=== PATIENT | female | born 1975 | race African-American/Black ===

== ENCOUNTER 2020-07-12 21:07 | Emergency (ER) | payer OTHER, SELFPAY ==
[2020-07-12 21:21] VITALS: BP 121/82; PULSE 82; RESP 16; TEMP 36.9; O2SAT 97; BMI 29.0
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
[2020-07-12 22:25] LABS: MANUAL DIFF FLAG NO
[2020-07-12 22:26] LABS: Basophils Percent Auto 0.5 % (0-2); Eosinophils Absolute Auto 0.3 X10*3/uL (0.0-0.4); Eosinophils Percent Auto 4.8 % (0-4); Hematocrit 34.8 % (37-47); Imm Gran Abs Auto 0.04 X10*3/uL (0.00-0.03); Imm Gran Pct Auto 0.6 % (0.0-0.4); Lymphocytes Absolute Auto 2.7 X10*3/uL (1.2-4.9); Lymphocytes Percent Auto 43.6 % (20-40); Mean Corpuscular HGB Conc 31.6 g/dl (31.0-35.0); Mean Corpuscular Hemoglobin 27.6 pg (27.0-33.0); Mean Corpuscular Volume 87.4 fL (80-98); Mean Platelet Volume 11.7 fL (9.4-12.3); Monocytes Absolute Auto 0.3 X10*3/uL (0.1-1.2); Monocytes Percent Auto 5.4 % (2-11); Neutrophils Absolute Auto 2.8 X10*3/uL (2.0-8.3); Neutrophils Percent Auto 45.1 % (45-73); Platelet Count 246 X10*3/uL (160-400); Red Blood Count 3.98 X10*6/uL (4.20-5.50); Red Cell Distribution Width 16.2 % (11.0-16.0); White Blood Count 6.3 X10*3/uL (4.8-10.8)
[2020-07-12 22:52] LABS: Ethanol < 10 mg/dL
[2020-07-12 22:56] LABS: Alanine Aminotransferase 6 U/L (0-31); Albumin Level 3.7 g/dL (3.5-5.0); Alkaline Phosphatase 62 U/L (39-117); Anion Gap 12 (12-20); Aspartate Amino Transferase 7 U/L (5-31); Bilirubin Total < 0.2 mg/dL (0.0-1.0); Blood Urea Nitrogen 11 mg/dL (9-16); Calcium 8.6 mg/dL (8.4-10.2); Carbon Dioxide 22 mmol/L (22-29); Chloride 111 mmol/L (96-108); Creatinine Clr Calc Pharmacy 94.7; Estimated Glomerular Filt Rate > 60; Glucose Random 89 mg/dL (60-115); Sodium 141 mmol/L (135-145); Total Protein 6.4 g/dL (6.5-8.0)
[2020-07-12 23:06] LABS: Erythrocyte Sedimentation Rate 9 MM/HR (0-20)
[2020-07-12 23:13] LABS: Glucose Urine UA NEG (NEG); Leukocyte Esterase Urine NEG (NEG); Nitrite Urine NEG (NEG); Specific Gravity - Urine >= 1.030 (1.005-1.025); Urine Blood NEG (NEG); Urine Ketones 5 MG/DL (NEG); Urine Protein NEG (NEG-TRACE)
[2020-07-12 23:16] LABS: Appearance Urine HAZY; Color Urine YELLOW; UACC Culture Trigger NO
--- NOTE | 2020-07-12 23:20 | PC.NURSE ---
pt urine sample obtained by bed beth. requesting food multiple times. heating pack given for patient complaints of back pain. pt in nad at this time.
--- NOTE | 2020-07-12 23:45 | PC.NURSE ---
PLAN TO D.C HOME VIA AMBULANCE. PT AGREEABLE. DR GUZMAN AT BEDSIDE
[2020-07-12 23:57] LABS: Amphetamine Screen Urine POSITIVE (Not Detect); Barbiturates, Urine Not Detected (Not Detect); Benzodiazepines Screen Urine Not Detected (Not Detect); Cannabinoid Screen Urine Not Detected (Not Detect); Cocaine Screen Urine POSITIVE (Not Detect); Opiate Screen Urine Not Detected (Not Detect); Phencyclidine Screen Urine Not Detected (Not Detect)
== END 2020-07-13 00:47 | disposition home or self-care (01) ==
PROVIDERS: Emergency Provider Student in an Organized Health Care Education/Training Program
DX: M54.42 Lumbago with sciatica, left side (principal); M54.41 Lumbago with sciatica, right side
CPT/HCPCS: 36415; 80053; 80307; 80320; 81003; 85025; 85652; 99283; 99284

== ENCOUNTER 2020-07-25 18:49 | Emergency (ER) | payer OTHER, SELFPAY ==
[2020-07-25 19:05] VITALS: BP 129/88; PULSE 75; RESP 20; TEMP 37.2; O2SAT 100; BMI 28.4
--- NOTE | 2020-07-25 19:14 | XR_ITS ---
EXAMINATION: PORTABLE CHEST 1 VIEW CLINICAL INFORMATION: cough . COMPARISON: 11/12/2019. TECHNIQUE: Portable frontal view of the chest was obtained. FINDINGS: The lungs are well expanded. No focal infiltrate, effusion, edema, or pneumothorax. Cardiac and mediastinal silhouettes are within normal limits for technique. No acute bony abnormality seen. IMPRESSION: No evidence of acute disease.
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
--- NOTE | 2020-07-25 19:15 | ECG_ITS ---
Test Reason : SOB Blood Pressure : / mmHG Vent. Rate : 076 BPM Atrial Rate : 076 BPM P-R Int : 160 ms QRS Dur : 096 ms QT Int : 436 ms P-R-T Axes : 059 019 056 degrees QTc Int : 490 ms Normal sinus rhythm Nonspecific T wave abnormality Abnormal ECG When compared with ECG of 13-MAY-2020 19:56, No significant change was found Referred By: Marlen Grace Electronically Signed By:RYAN WINKLER MD
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
[2020-07-25 19:51] LABS: Hematocrit 33.7 % (37-47); Hemoglobin 10.7 g/dl (12.0-16.0); Imm Gran Abs Auto 0.02 X10*3/uL (0.00-0.03); Imm Gran Pct Auto 0.5 % (0.0-0.4); Lymphocytes Absolute Auto 1.3 X10*3/uL (1.2-4.9); Lymphocytes Percent Auto 31.8 % (20-40); MANUAL DIFF FLAG NO; Mean Corpuscular HGB Conc 31.8 g/dl (31.0-35.0); Mean Corpuscular Hemoglobin 27.4 pg (27.0-33.0); Mean Corpuscular Volume 86.4 fL (80-98); Mean Platelet Volume 12.2 fL (9.4-12.3); Monocytes Absolute Auto 0.3 X10*3/uL (0.1-1.2); Monocytes Percent Auto 8.5 % (2-11); Neutrophils Absolute Auto 2.3 X10*3/uL (2.0-8.3); Neutrophils Percent Auto 58.2 % (45-73); Platelet Count 241 X10*3/uL (160-400); Red Cell Distribution Width 15.9 % (11.0-16.0)
[2020-07-25 20:14] VITALS: PULSE 78; RESP 20; O2SAT 99
[2020-07-25 20:18] VITALS: PULSE 73; O2SAT 100
[2020-07-25 20:18] LABS: Anion Gap 10 (12-20); Blood Urea Nitrogen 15 mg/dL (9-16); Calcium 8.4 mg/dL (8.4-10.2); Carbon Dioxide 26 mmol/L (22-29); Chloride 107 mmol/L (96-108); Estimated Glomerular Filt Rate > 60; Glucose Random 90 mg/dL (60-115); Potassium 4.2 mmol/l (3.3-5.1); Sodium 139 mmol/L (135-145)
[2020-07-25 20:26] LABS: B Type Natriuretic Peptide 18 pg/mL (<100); Troponin-I High Sensitivity 9.4 ng/L (<3.5-17.0)
[2020-07-25 22:00] VITALS: BP 124/73; PULSE 79; RESP 16; O2SAT 100
[2020-07-25 23:15] LABS: Troponin-I High Sensitivity 8.2 ng/L (<3.5-17.0)
[2020-07-25 23:55] LABS: UPreg QC Valid YES; Urine Pregnancy NEGATIVE (NEGATIVE)
== END 2020-07-26 00:11 | disposition home or self-care (01) ==
PROVIDERS: Emergency Provider Emergency Medicine
DX: B34.9 Viral infection, unspecified (principal); Z91.81 History of falling; E11.9 Type 2 diabetes mellitus without complications; G35 Multiple sclerosis; F17.200 Nicotine dependence, unspecified, uncomplicated
CPT/HCPCS: 36415; 70450; 71045; 80048; 81025; 83880; 84484; 85025; 93005; 99284; 99285

== ENCOUNTER 2020-08-02 14:15 | Emergency (ER) | payer OTHER, SELFPAY ==
[2020-08-02 16:12] VITALS: BP 139/91; PULSE 75; RESP 18; TEMP 36.9; O2SAT 100; BMI 24.7
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
[2020-08-02] MEDS: oxyCODONE HCl Immed Release 5 MG TABLET PO (17:12)
--- NOTE | 2020-08-02 17:13 | PC.NURSE ---
patient medicated per order
[2020-08-02 17:39] LABS: Glucose Urine UA NEG (NEG); Leukocyte Esterase Urine NEG (NEG); Nitrite Urine NEG (NEG); Specific Gravity - Urine >= 1.030 (1.005-1.025); Urine Blood NEG (NEG); Urine Ketones NEG (NEG); Urine Protein NEG (NEG-TRACE)
[2020-08-02 17:40] LABS: Appearance Urine CLEAR; Color Urine YELLOW
[2020-08-02 17:43] LABS: UPreg QC Valid YES; Urine Pregnancy NEGATIVE (NEGATIVE)
== END 2020-08-02 19:11 | disposition home or self-care (01) ==
PROVIDERS: Emergency Provider Emergency Medicine
DX: S39.81XA Other specified injuries of abdomen, initial encounter (principal); R10.9 Unspecified abdominal pain; R07.81 Pleurodynia; V43.52XA Car driver injured in collision with other type car in traffic accident, initial encounter; Y93.9 Activity, unspecified; Y92.410 Unspecified street and highway as the place of occurrence of the external cause; F17.200 Nicotine dependence, unspecified, uncomplicated; Z71.6 Tobacco abuse counseling; Z79.899 Other long term (current) drug therapy
CPT/HCPCS: 71045; 74176; 81003; 81025; 99284

== ENCOUNTER 2020-08-21 16:06 | Inpatient (IN) | payer OTHER, SELFPAY ==
[2020-08-21 16:24] VITALS: BP 113/62; BP 145/100; PULSE 88; PULSE 90; RESP 19; TEMP 36.7; O2SAT 98; O2SAT 99; BMI 24.7
[2020-08-21 16:36] VITALS: BP 113/62; PULSE 88; RESP 19; TEMP 36.7; O2SAT 99
--- NOTE | 2020-08-21 17:32 | ED_ITS ---
HPI - Fall General Chief Complaint: Fall Stated Complaint: FALL Time Seen by Provider: 08/21/20 19:15 Source: patient Mode of arrival: EMS Limitations: no limitations History of Present Illness HPI Narrative: 45-year-old female with past medical history of MS, chronic pain, hypertension, GERD, anxiety, depression, and insomnia presents after a fall. She states that she is experiencing an MS flare, has weakness, and fell because of weakness and pain. She lost consciousness and believes that she hit her head. Her states that she was out for several minutes. she states to have pain everywhere per baseline. She does not describe any abdominal distension, hematuria, edema, fevers or chills. MD complaint: fall Onset (ago): hour(s) ( Just prior to arrival) Fall witnessed: yes, by family Place fall occurred: home Loss of consciousness: yes Length of LOC: minutes(s) Prolonged down time: no Symptoms prior to fall: other ( weakness, consistent with MS flare) Context: history of frequent falls Location of injury: head Severity: severe Severity scale (1-10): 10 Quality: aching and throbbing Related Data Home Medications Medication Instructions Recorded Confirmed albuterol sulfate [ProAir HFA] 2 puff INHALATION Q6H PRN 08/21/20 08/21/20 amlodipine 2.5 mg PO DAILY 08/21/20 08/21/20 atorvastatin 10 mg PO BEDTIME 08/21/20 08/21/20 divalproex 500 mg PO BID 08/21/20 08/21/20 hydroxyzine HCl [Atarax] 50 mg PO QID PRN 08/21/20 08/21/20 pantoprazole [Protonix] 40 mg PO DAILY 08/21/20 08/21/20 quetiapine [Seroquel XR] 200 mg PO DAILY 08/21/20 08/21/20 trazodone 300 mg PO BEDTIME PRN 08/21/20 08/21/20 Allergies Allergy/AdvReac Type Severity Reaction Status Date / Time Iodinated Contrast Media Allergy Severe ANAPHYLAXIS Verified 07/12/20 22:47 [CONTRAST, IV] ibuprofen [From Motrin] Allergy Intermediate SWELLING Verified 07/12/20 22:47 morphine [MORPHINE] Allergy Intermediate RASH Verified 07/12/20 22:47 acetaminophen [From TYLENOL] Allergy Mild HIVES Verified 07/12/20 22:47 bee pollen [Bee Stings] Allergy Mild UNKNOWN Verified 07/12/20 22:47 coconut Allergy Mild HIVES/SWELL Verified 07/12/20 22:47 ING latex [Latex] Allergy Mild HIVES Verified 07/12/20 22:47 NSAIDS (Non-Steroidal Allergy Mild HIVES Verified 07/12/20 22:47 Anti-Inflamma [NSAIDS (NON-STEROIDAL ANTI-INFLAMMA] aspirin [ASA] Allergy Unknown HIVES Verified 07/12/20 22:47 tramadol [TRAMADOL] Allergy Unknown UNKNOWN Verified 07/12/20 22:47 turkey Allergy Unknown UNKNOWN Verified 07/12/20 22:47 lidocaine Allergy Rash Verified 07/12/20 22:47 From Vicodin Allergy Mild RASH Uncoded 06/25/20 17:23 Review of Systems Review of Systems: Constitutional: No Weight loss, No Fever, No Chills, No Night Sweats, No Fatigue, No Malaise ENT/Mouth: No Hearing loss, No Ear Pain, No Nasal Congestion, No Sinus Pain, No Hoarseness, No sore throat, No Rhinorrhea, No Swallowing Difficulty Eyes: No Eye Pain, No Swelling, No Redness, No Foreign Body, No Discharge, No Vision Changes Cardiovascular: No Chest Pain, No SOB, No Dyspnea on Exertion, No Orthopnea, No Edema, No Palpitations Respiratory: No Cough, No Sputum, No Wheezing, No Smoke Exposure, No Dyspnea Gastrointestinal: No Nausea, No Vomiting, No Diarrhea, No Constipation, No abdominal Pain, No Hematochezia, No Melena Genitourinary: no irregular bleeding, No Dysuria, No Urinary Frequency, No Hematuria, No Urinary Incontinence, No Urgency, No Flank Pain, No Urinary Flow Changes, No Hesitancy Musculoskeletal: chronic pain Skin: No Skin Lesions, No rash Neuro: positive loss of consciousness, Weakness, Numbness, and headache. No Paresthesias, No Dizziness Psych: No Anxiety/Panic, No Depression, No SI/HI/AH/VH, No Social Issues Heme/Lymph: No Bruising, No Bleeding,No Lymphadenopathy Endocrine: No Polyuria, No Polydipsia, No Temperature Intolerance Yes all other systems are reviewed and are negative PMFSH Past Medical History Attestation statement: The following information was validated with the patient. Medical History Asthma section wound complication Diabetes GERD (gastroesophageal reflux disease) Multiple sclerosis Surgical History History of left ankle joint replacement History of thoracic surgery Social History Social History Alcohol intake: never Smoking Status: Current every day smoker Use of substances other than those prescribed or required for medical reasons: No Substance Use Type: Painkillers Advance Directives: No Advance Directives Information Provided: Yes Physical Exam Vital Signs: Vital Signs: Last Vital Signs Temp 98.6 F 08/21/20 23:31 Pulse 78 08/21/20 23:31 Resp 16 08/21/20 23:31 BP 124/74 08/21/20 23:31 Pulse Ox 99 08/21/20 23:31 Body Mass Index 24.7 Appearance: Alert. Oriented X3. No acute distress. Eyes: Pupils equal, round and reactive to light. ENT: Pharynx normal. Neck: Normal inspection. Neck supple. CVS: Normal heart rate and rhythm. Pulses normal. Respiratory: No respiratory distress. Breath sounds normal. Abdomen: Soft and nontender. Skin: Skin warm and dry. Normal skin color. Normal skin turgor. Extremities: No lower extremity edema. Neuro: No motor deficit. No sensory deficit. Course Course Course Narrative: 45-year-old female with MS and chronic pain presents after a fall. States to have weakness secondary to MS flare. She is requesting IV steroids to help reduce her flare and some pain management. Will order labs, CT scan of the head as she did lose consciousness. She describes using 10 mg of oxycodone q.4 hours however her last prescription that she received for oxycodone 10 mg was in April of 2020. at this time will give pain management of oxycodone 5 mg, CBC, Chem 7. she has had multiple admissions in the past for MS flares, last date being February of 2020. CT scan of head is negative, chest x-ray is negative for acute findings, labs are unremarkable, COVID-19 swab is negative troponin is negative, EKG is normal sinus. Patient states that she is too weak to go home, has significant concerns regarding falls as she had fallen earlier today With loss of consciousness. Discussion with hospitalist, plan of care is to admit for MS exacerbation. Consultations Consultation #1: Ganesh Time: 21:30 MDM - Fall Differential Diagnosis Differential diagnosis: Likely syncope, fracture and concussion with loss of consciousness Medical Records Attestation: I reviewed the patient's medical records. Lab Data Attestation: I reviewed the patient's lab results. Result diagrams: 08/21/20 21:10 08/21/20 19:43 Labs: Lab Results 08/21/20 08/21/20 08/21/20 Range/Units 19:43 19:43 19:43 WBC (4.8-10.8) X10*3/uL RBC (4.20-5.50) X10*6/uL Hgb (12.0-16.0) g/dl Hct (37-47) % MCV (80-98) fL MCH (27.0-33.0) pg MCHC (31.0-35.0) g/dl RDW (11.0-16.0) % Plt Count (160-400) X10*3/uL MPV (9.4-12.3) fL Immature Gran % (Auto) (0.0-0.4) % Neut % (Auto) (45-73) % Lymph % (Auto) (20-40) % Winston % (Auto) (2-11) % Eos % (Auto) (0-4) % Baso % (Auto) (0-2) % Lymph # (Auto) (1.2-4.9) X10*3/uL Winston # (Auto) (0.1-1.2) X10*3/uL Eos # (Auto) (0.0-0.4) X10*3/uL Baso # (Auto) (0.0-0.2) X10*3/uL Abs Immat Gran (auto) (0.00-0.03) X10*3/uL Absolute Neuts (auto) (2.0-8.3) X10*3/uL Absolute Nucleated RBC (0.0-0.012) X10*3/uL Nucleated RBC % (auto) (0.0-0.2) /100WBC Sodium 138 (135-145) mmol/L Potassium 4.2 (3.3-5.1) mmol/l Chloride 106 (96-108) mmol/L Carbon Dioxide 23 (22-29) mmol/L Anion Gap 13 (12-20) BUN 12 (9-16) mg/dL Creatinine 0.92 (0.5-1.4) mg/dL Estim Creat Clear Calc 83.5 Estimated GFR > 60 Random Glucose 83 (60-115) mg/dL Lactic Acid 1.2 (0.5-2.0) mmol/L Calcium 8.9 (8.4-10.2) mg/dL Magnesium 1.9 (1.6-2.6) mg/dL Troponin I High Sens < 3.5 D (<3.5-17.0) ng/L Coronavirus (PCR) COVID-19 ([facility]) (Negative) COVID-19 Clin Com Influenza Type A (PCR) Influenza Type B (PCR) RSV RNA Qual (PCR) 08/21/20 08/21/20 08/21/20 Range/Units 21:10 22:52 22:52 WBC 3.8 L (4.8-10.8) X10*3/uL RBC 4.05 L (4.20-5.50) X10*6/uL Hgb 11.1 L (12.0-16.0) g/dl Hct 35.3 L (37-47) % MCV 87.2 (80-98) fL MCH 27.4 (27.0-33.0) pg MCHC 31.4 (31.0-35.0) g/dl RDW 15.4 (11.0-16.0) % Plt Count 230 (160-400) X10*3/uL MPV 12.1 (9.4-12.3) fL Immature Gran % (Auto) 0.3 (0.0-0.4) % Neut % (Auto) 57.9 (45-73) % Lymph % (Auto) 35.7 (20-40) % Winston % (Auto) 3.7 (2-11) % Eos % (Auto) 1.6 (0-4) % Baso % (Auto) 0.8 (0-2) % Lymph # (Auto) 1.4 (1.2-4.9) X10*3/uL Winston # (Auto) 0.1 (0.1-1.2) X10*3/uL Eos # (Auto) 0.1 (0.0-0.4) X10*3/uL Baso # (Auto) 0.0 (0.0-0.2) X10*3/uL Abs Immat Gran (auto) 0.01 (0.00-0.03) X10*3/uL Absolute Neuts (auto) 2.2 (2.0-8.3) X10*3/uL Absolute Nucleated RBC 0.000 (0.0-0.012) X10*3/uL Nucleated RBC % (auto) 0.0 (0.0-0.2) /100WBC Sodium (135-145) mmol/L Potassium (3.3-5.1) mmol/l Chloride (96-108) mmol/L Carbon Dioxide (22-29) mmol/L Anion Gap (12-20) BUN (9-16) mg/dL Creatinine (0.5-1.4) mg/dL Estim Creat Clear Calc Estimated GFR Random Glucose (60-115) mg/dL Lactic Acid (0.5-2.0) mmol/L Calcium (8.4-10.2) mg/dL Magnesium (1.6-2.6) mg/dL Troponin I High Sens (<3.5-17.0) ng/L Coronavirus (PCR) Cancelled COVID-19 ([facility]) Negative (Negative) COVID-19 Clin Com See Note Influenza Type A (PCR) Cancelled Influenza Type B (PCR) Cancelled RSV RNA Qual (PCR) Cancelled Imaging Data CT scan - head: Attestation: I personally reviewed and interpreted this imaging study as follows: Radiologist's impression: FINDINGS: There are no pathologic extra-axial fluid collections. The lateral, third, fourth ventricles are prominent, though stable and concordant with the appearance of the sulci. The degree of ventricular prominence is discordant with the patient's age. There is no evidence for acute intraparenchymal hemorrhage or infarct. There is mild periventricular low-attenuation indicative of small vessel disease. There is neither mass nor mass effect. There is no shift of midline structures. The paranasal sinuses and mastoid air cells are clear. There are no osseous lesions. CT/CT head/brain wo con IMPRESSION: No evidence for acute intracranial injury. Stable though discordant ventricular prominence indicative of cerebral atrophy. Automated exposure control (Care Dose) Adjustment of the mA and/or kv according to patient size (this includes techniques or standardized protocols for targeted exams where dose is matched to indication / reason for exam; i.e. extremities or head). Chest x-ray: Attestation: I personally reviewed and interpreted this imaging study as follows: Radiologist's impression: CLINICAL INFORMATION: Pain. Fall. COMPARISON: August 02, 2020. TECHNIQUE: An AP view of the chest is provided. FINDINGS: The cardiac silhouette is not enlarged. The mediastinal and hilar contours are unremarkable. There are neither pleural effusions nor pneumothoraces. There are no consolidations. The osseous structures are stable. XR/XR chest 1V IMPRESSION: No evidence for acute disease. ECG Data Attestation: I personally reviewed and interpreted this ECG as follows: ECG interpretation date: 08/21/20 ECG interpretation time: 19:53 Prior ECG tracings: available for review Interpretation: Vent. Rate : 076 BPM Atrial Rate : 076 BPM P-R Int : 160 ms QRS Dur : 096 ms QT Int : 436 ms P-R-T Axes : 059 019 056 degrees QTc Int : 490 ms Normal sinus rhythm Nonspecific T wave abnormality Abnormal ECG When compared with ECG of 13-MAY-2020 19:56, No significant change was found Critical Care Time Critical Care Time Critical Care Time: Yes Total Critical Care Time: 45 Attestation: I have personally provided critical care time exclusive of time spent on separately billable procedures. Time includes review of laboratory data, radiology results, discussion with consultants, and monitoring for potential decompensation. Interventions were performed as documented. Discharge Plan Discharge Clinical Impression: Multiple sclerosis exacerbation, Weakness Fall Qualifiers: Encounter type: initial encounter Qualified Code(s): W19.XXXA - Unspecified fall, initial encounter Patient Disposition: Admitted As Inpatient
--- NOTE | 2020-08-21 17:54 | ECG_ITS ---
Test Reason : ABD PAIN Blood Pressure : / mmHG Vent. Rate : 063 BPM Atrial Rate : 063 BPM P-R Int : 160 ms QRS Dur : 092 ms QT Int : 440 ms P-R-T Axes : 053 -03 030 degrees QTc Int : 450 ms Normal sinus rhythm Nonspecific T wave abnormality Abnormal ECG When compared with ECG of 25-JUL-2020 19:53, No significant change was found Referred By: Stephanie Rodriguez Electronically Signed By:RYAN WINKLER MD
--- NOTE | 2020-08-21 17:54 | CT_ITS ---
EXAMINATION: CT HEAD WITHOUT CONTRAST CLINICAL INFORMATION: Fall. Trauma. COMPARISON: July 25, 2020. TECHNIQUE: Contiguous helical images of the brain were obtained without IV contrast. Multiplanar reconstructions were performed. DLP: 667 mGy-cm. FINDINGS: There are no pathologic extra-axial fluid collections. The lateral, third, fourth ventricles are prominent, though stable and concordant with the appearance of the sulci. The degree of ventricular prominence is discordant with the patient's age. There is no evidence for acute intraparenchymal hemorrhage or infarct. There is mild periventricular low-attenuation indicative of small vessel disease. There is neither mass nor mass effect. There is no shift of midline structures. The paranasal sinuses and mastoid air cells are clear. There are no osseous lesions. CT/CT head/brain wo con IMPRESSION: No evidence for acute intracranial injury. Stable though discordant ventricular prominence indicative of cerebral atrophy. Automated exposure control (Care Dose) Adjustment of the mA and/or kv according to patient size (this includes techniques or standardized protocols for targeted exams where dose is matched to indication / reason for exam; i.e. extremities or head).
--- NOTE | 2020-08-21 18:11 | XR_ITS ---
EXAMINATION: CHEST 1 VIEW CLINICAL INFORMATION: Pain. Fall. COMPARISON: August 02, 2020. TECHNIQUE: An AP view of the chest is provided. FINDINGS: The cardiac silhouette is not enlarged. The mediastinal and hilar contours are unremarkable. There are neither pleural effusions nor pneumothoraces. There are no consolidations. The osseous structures are stable. XR/XR chest 1V IMPRESSION: No evidence for acute disease.
[2020-08-21 19:11] VITALS: PULSE 71; RESP 19; TEMP 36.8; O2SAT 100
[2020-08-21] MEDS: oxyCODONE HCl Immed Release 5 MG TABLET PO (19:44)
[2020-08-21] MEDS: methylPREDNISolone Sod Succ/PF 125 MG/2 ML VIAL IVPUSH (19:44)
[2020-08-21] MEDS: 0.9 % Sodium Chloride 1,000 ML 999 ML IVCONT (19:44)
[2020-08-21 20:18] LABS: Lactic Acid 1.2 mmol/L (0.5-2.0)
[2020-08-21 20:22] LABS: Magnesium 1.9 mg/dL (1.6-2.6)
[2020-08-21 20:26] LABS: Troponin-I High Sensitivity < 3.5 ng/L (<3.5-17.0)
[2020-08-21 21:11] VITALS: BP 117/73; PULSE 74; RESP 16; TEMP 36.8; O2SAT 98
[2020-08-21 21:15] LABS: Anion Gap 13 (12-20); Blood Urea Nitrogen 12 mg/dL (9-16); Calcium 8.9 mg/dL (8.4-10.2); Carbon Dioxide 23 mmol/L (22-29); Chloride 106 mmol/L (96-108); Creatinine Clr Calc Pharmacy 83.5; Estimated Glomerular Filt Rate > 60; Glucose Random 83 mg/dL (60-115); Potassium 4.2 mmol/l (3.3-5.1); Sodium 138 mmol/L (135-145)
[2020-08-21 21:16] LABS: Basophils Percent Auto 0.8 % (0-2); Eosinophils Absolute Auto 0.1 X10*3/uL (0.0-0.4); Eosinophils Percent Auto 1.6 % (0-4); Hematocrit 35.3 % (37-47); Hemoglobin 11.1 g/dl (12.0-16.0); Imm Gran Abs Auto 0.01 X10*3/uL (0.00-0.03); Imm Gran Pct Auto 0.3 % (0.0-0.4); Lymphocytes Absolute Auto 1.4 X10*3/uL (1.2-4.9); Lymphocytes Percent Auto 35.7 % (20-40); Mean Corpuscular HGB Conc 31.4 g/dl (31.0-35.0); Mean Corpuscular Hemoglobin 27.4 pg (27.0-33.0); Mean Corpuscular Volume 87.2 fL (80-98); Mean Platelet Volume 12.1 fL (9.4-12.3); Monocytes Absolute Auto 0.1 X10*3/uL (0.1-1.2); Monocytes Percent Auto 3.7 % (2-11); Neutrophils Absolute Auto 2.2 X10*3/uL (2.0-8.3); Neutrophils Percent Auto 57.9 % (45-73); Platelet Count 230 X10*3/uL (160-400); Red Blood Count 4.05 X10*6/uL (4.20-5.50); Red Cell Distribution Width 15.4 % (11.0-16.0); White Blood Count 3.8 X10*3/uL (4.8-10.8)
[2020-08-21 21:17] LABS: MANUAL DIFF FLAG NO
[2020-08-21 22:37] VITALS: BP 110/74; RESP 15; TEMP 36.8; O2SAT 97
[2020-08-21 23:15] LABS: COVID-19 Test Negative (Negative); IDNOW Serial# 9DD0AD1C
[2020-08-21 23:31] VITALS: BP 124/74; PULSE 78; RESP 16; TEMP 37; O2SAT 99
[2020-08-22] VITALS (9 sets, daily range): BP systolic 116–149; BP diastolic 61–85; PULSE 60–136; RESP 18–20; TEMP 36.1–37.1; O2SAT 98–100
--- NOTE | 2020-08-22 00:16 | PC.NURSE ---
pt states she is unable to feel when she has to urinate or have a bm. pt has been incont on the prev shift for both urine and stool.
--- NOTE | 2020-08-22 00:20 | PC.NURSE ---
rn will call back for report. pt needs met at bedside and pt has thrown all the wrappers to her foods consumed onto the floor. pt started to cry when she was told we didnt have the sandwhich of her choice for her, pt cried briefly and is now resting.
--- NOTE | 2020-08-22 00:50 | PC.NURSE ---
nurse to nurse report given pt is ready to be transfered to c.
[2020-08-22] MEDS: oxyCODONE HCl Immed Release 5 MG TABLET PO ×4 (01:49→21:04)
[2020-08-22] MEDS: 0.9 % Sodium Chloride Flush 3 ML SYRINGE IVFLUSH ×4 (01:49→21:06)
[2020-08-22] MEDS: Flu Vacc QS2020-21(6mos up)/PF 0.5 ML SYRINGE IM (02:37)
[2020-08-22] MEDS: QUEtiapine Fumarate 100 MG TABLET PO ×2 (03:01→21:03)
[2020-08-22] MEDS: traZODone HCL 50 MG TABLET 300 MG PO ×2 (03:01→21:10)
[2020-08-22] MEDS: hydrOXYzine HCL 50 MG TABLET PO ×3 (03:32→21:09)
--- NOTE | 2020-08-22 04:04 | P.HPHOSP_ITS ---
History of Present Illness Date of Service: 08/21/20 Chief Complaint: MS flare this is a 45-year-old female with past medical history of MS, with frequent admissions to the hospital for presumed flares presents to the hospital today with complaints of spasm, loss of bowel bladder control, and vomiting. Patient reports that she is currently residing at a hotel for the past 3 months as she is waiting to close her house, she woke up in the middle the night with significant spastic pain of her back, she got up to use the bathroom, had significant weakness in the right side, and fell, hitting her head in the process and losing consciousness for about 4 minutes according to her was present at the time. She reports that she currently has weakness of her right upper and lower extremity, with spasticity, and significant spastic pain in her back. She otherwise denies any headache, change in vision, no slurred speech, no drooping of her face, shortness of breath or chest pain, no abdominal pain nausea or vomiting, no urinary symptoms and no lower extremity edema. O n arrival to the ED hemodynamically stable with no significant abnormal vitals. Labs are significant for WBC count of 3.8, otherwise unremarkable. COVID-[address] shows no evidence for acute intracranial injury. Cerebral atrophy Past medical history: MS, seizures, history of CVA?, PTSD and personality disorder, bipolar disorder, asthma Surgical history: Thoracic surgery, ankle surgery, Family history: Unknown Social history: Used cocaine in the past, patient is a currently every day smoker, denies alcohol use Review of Systems Review of Systems: Yes all other systems are reviewed and are negative [facility] Medical History Asthma section wound complication Diabetes GERD (gastroesophageal reflux disease) Multiple sclerosis Surgical History History of left ankle joint replacement History of thoracic surgery Social History Household Members: Family Housing: Other Do you presently have visiting nurse or other home services: No (currently living in a hotel) Alcohol intake: never Smoking Status: Current every day smoker Tobacco Type: Cigarette Packs Per Day: 1 Cigarettes Per Day: 20.0 Smoked in Last 30 Days: Yes Patient Interested in Nicotine Replacement: Yes (gum preferred) Patient Given Instructions on How to Stop Smoking: Yes Date Education Initiated: 08/22/20 Second Hand Smoke Exposure: Yes Use of substances other than those prescribed or required for medical reasons: No Substance Use Type: Painkillers Have you been hit, kicked, punched, or otherwise hurt by someone within the past year? If so, by whom?: No Do you feel safe in your current relationship?: Yes Is there a partner from a previous relationship who is making you feel unsafe now?: No Are you made to feel afraid or neglected: No Advance Directives: No Advance Directives Information Provided: Yes Do you have thoughts of harming others: None Do you have a plan to hurt others: No Plan Recently lost weight without trying: No Meds Allergies Allergy/AdvReac Type Severity Reaction Status Date / Time Iodinated Contrast Media Allergy Severe ANAPHYLAXIS Verified 07/12/20 22:47 [CONTRAST, IV] ibuprofen [From Motrin] Allergy Intermediate SWELLING Verified 07/12/20 22:47 morphine [MORPHINE] Allergy Intermediate RASH Verified 07/12/20 22:47 acetaminophen [From TYLENOL] Allergy Mild HIVES Verified 07/12/20 22:47 bee pollen [Bee Stings] Allergy Mild UNKNOWN Verified 07/12/20 22:47 coconut Allergy Mild HIVES/SWELL Verified 07/12/20 22:47 ING latex [Latex] Allergy Mild HIVES Verified 07/12/20 22:47 NSAIDS (Non-Steroidal Allergy Mild HIVES Verified 07/12/20 22:47 Anti-Inflamma [NSAIDS (NON-STEROIDAL ANTI-INFLAMMA] aspirin [ASA] Allergy Unknown HIVES Verified 07/12/20 22:47 tramadol [TRAMADOL] Allergy Unknown UNKNOWN Verified 07/12/20 22:47 turkey Allergy Unknown UNKNOWN Verified 07/12/20 22:47 lidocaine Allergy Rash Verified 07/12/20 22:47 From Vicodin Allergy Mild RASH Uncoded 06/25/20 17:23 Home Medications Medication Instructions Recorded Confirmed Type albuterol sulfate [ProAir HFA] 2 puff INHALATION Q6H PRN 08/21/20 08/22/20 History amlodipine 2.5 mg PO DAILY 08/21/20 08/22/20 History atorvastatin 10 mg PO BEDTIME 08/21/20 08/22/20 History divalproex 500 mg PO BID 08/21/20 08/22/20 History hydroxyzine HCl [Atarax] 50 mg PO QID PRN 08/21/20 08/22/20 History pantoprazole [Protonix] 40 mg PO DAILY 08/21/20 08/22/20 History quetiapine [Seroquel XR] 200 mg PO DAILY 08/21/20 08/22/20 History trazodone 300 mg PO BEDTIME PRN 08/21/20 08/22/20 History Physical Exam Vital Signs and Narrative: Vital Signs: Last Vital Signs Temp 98 F 08/22/20 03:31 Pulse 136 H 08/22/20 03:31 Resp 18 08/22/20 03:31 BP 120/61 08/22/20 03:31 Pulse Ox 98 08/22/20 03:31 Body Mass Index 24.7 Const: General: cooperative and no acute distress Orientation/consci ousness: patient oriented x3 Eyes: General: appearance normal, both eyes and all related structures Pupils: Equal, round and reactive pupils present Resp: Effort & Inspection: normal respiratory effort and able to speak in complete sentences Auscultation: clear to auscultation bilaterally Cardio: Rate: regular rate Rhythm: regular rhythm GI: Palpation (GI): Soft to palpation Auscultation: normal bowel sounds Skin: General skin exam: no rashes or lesions noted Neuro: Other: 1/5 strength in the upper and lower extremity( i am not completely convinced that this is genuine weakness), General: patient oriented x3 Cranial nerves: Yes Equal, round and reactive pupils present Cognition (Neuro): normal cognition Extrem: General: Yes normal to inspection and Yes no pedal edema Results Labs CBC and Chem 7: 08/21/20 21:10 08/21/20 19:43 Labs: Laboratory Results - last 24 hr 08/21/20 08/21/20 08/21/20 19:43 19:43 19:43 MCV MCH MCHC RDW Plt Count MPV Immature Gran % (Auto) Neut % (Auto) Lymph % (Auto) Grant % (Auto) Eos % (Auto) Baso % (Auto) Lymph # (Auto) Grant # (Auto) Eos # (Auto) Baso # (Auto) Abs Immat Gran (auto) Absolute Neuts (auto) Absolute Nucleated RBC Nucleated RBC % (auto) Anion Gap 13 Estim Creat Clear Calc 83.5 Estimated GFR > 60 Random Glucose 83 Lactic Acid 1.2 Calcium 8.9 Magnesium 1.9 Troponin I High Sens < 3.5 D Coronavirus (PCR) COVID-19 ([facility]) COVID-19 Clin Com Influenza Type A (PCR) Influenza Type B (PCR) RSV RNA Qual (PCR) 08/21/20 08/21/20 08/21/20 21:10 22:52 22:52 MCV 87.2 MCH 27.4 MCHC 31.4 RDW 15.4 Plt Count 230 MPV 12.1 Immature Gran % (Auto) 0.3 Neut % (Auto) 57.9 Lymph % (Auto) 35.7 Grant % (Auto) 3.7 Eos % (Auto) 1.6 Baso % (Auto) 0.8 Lymph # (Auto) 1.4 Grant # (Auto) 0.1 Eos # (Auto) 0.1 Baso # (Auto) 0.0 Abs Immat Gran (auto) 0.01 Absolute Neuts (auto) 2.2 Absolute Nucleated RBC 0.000 Nucleated RBC % (auto) 0.0 Anion Gap Estim Creat Clear Calc Estimated GFR Random Glucose Lactic Acid Calcium Magnesium Troponin I High Sens Coronavirus (PCR) Cancelled COVID-19 ([facility]) Negative COVID-19 Clin Com See Note Influenza Type A (PCR) Cancelled Influenza Type B (PCR) Cancelled RSV RNA Qual (PCR) Cancelled Imaging Radiologist's Impressions: Impressions Head CT 08/21/20 17:54 IMPRESSION: No evidence for acute intracranial injury. Stable though discordant ventricular prominence indicative of cerebral atrophy. Automated exposure control (Care Dose) Adjustment of the mA and/or kv according to patient size (this includes techniques or standardized protocols for targeted exams where dose is matched to indication / reason for exam; i.e. extremities or head). Chest X-Ray 08/21/20 18:11 IMPRESSION: No evidence for acute disease. Assessment and Plan (1) Multiple sclerosis exacerbation: Status: Acute (2) Fall: Qualifiers: Encounter type: initial encounter Qualified Code(s): W19.XXXA - Unspecified fall, initial encounter Status: Acute (3) Diabetes: Status: Acute (4) History of seizure: Status: Acute (5) Syncope: Status: Acute (6) Hypertension: Status: Acute (7) Asthma: Status: Acute this is a 45-year-old female with past medical history of MS who presents to the hospital stating weakness, fall, and incontinence. # questionable MS flare - patient reports incontinence a bowel and bladder, weakness of right upper lower extremity, - last admission few months ago patient refused MRI of the brain nose treated symptomatically with her symptoms resolving and patient lead before getting the MRI done plan: - I will hold off on given her high dose of Solu-Medrol pending Neurology input - will order MRI of the brain and spine - supportive and symptomatic measures # syncope - possibly secondary to seizure versus Secondary to concussion versus other neurogenic cause - for according to the patient, she fell after getting out of bed and hitting her head and losing consciousness for about 4 minutes. - this was witnessed by has been with no evidence of seizure-like activity - in constant she of bowel and bladder was prior to this fall/sycope plan: - Continue divalproex - neurology's consulted # Hypertension - stable - continue amlodipine # hyperlipidemia - continue statin # asthma - no evidence of exacerbation - continue albuterol inhaler # mood disorder - continue hydroxyzine, Seroquel, trazodone DVT prophylaxis: Lovenox
[2020-08-22 05:31] LABS: MANUAL DIFF FLAG NO
[2020-08-22 05:35] LABS: Hematocrit 37.4 % (37-47); Hemoglobin 11.8 g/dl (12.0-16.0); Imm Gran Abs Auto 0.01 X10*3/uL (0.00-0.03); Imm Gran Pct Auto 0.3 % (0.0-0.4); Lymphocytes Absolute Auto 0.8 X10*3/uL (1.2-4.9); Lymphocytes Percent Auto 23.9 % (20-40); Mean Corpuscular HGB Conc 31.6 g/dl (31.0-35.0); Mean Corpuscular Hemoglobin 27.4 pg (27.0-33.0); Monocytes Percent Auto 0.9 % (2-11); Neutrophils Absolute Auto 2.5 X10*3/uL (2.0-8.3); Neutrophils Percent Auto 74.9 % (45-73); Platelet Count 257 X10*3/uL (160-400); Red Cell Distribution Width 15.2 % (11.0-16.0); White Blood Count 3.3 X10*3/uL (4.8-10.8)
[2020-08-22] MEDS: Omeprazole 20 MG CAPSULE.DR PO (05:49)
[2020-08-22 06:00] LABS: Anion Gap 14 (12-20); Blood Urea Nitrogen 12 mg/dL (9-16); Calcium 8.9 mg/dL (8.4-10.2); Carbon Dioxide 21 mmol/L (22-29); Chloride 106 mmol/L (96-108); Creatinine Clr Calc Pharmacy 94.8; Estimated Glomerular Filt Rate > 60; Glucose Random 155 mg/dL (60-115); Potassium 4.2 mmol/l (3.3-5.1); Sodium 137 mmol/L (135-145)
[2020-08-22] MEDS: methylPREDNISolone Sod Succ 1,000 MG in 0.9 % Sodium Chloride 50 ML 264 MG IV (07:25)
[2020-08-22 07:47] LABS: Glucose, Whole Blood 128 mg/dL (60-115)
[2020-08-22] MEDS: Divalproex Sodium 500 MG TABLET.DR PO ×2 (08:45→21:04)
[2020-08-22] MEDS: amLODIPine Besylate 2.5 MG TABLET PO (08:45)
[2020-08-22 11:21] LABS: Glucose, Whole Blood 205 mg/dL (60-115)
[2020-08-22] MEDS: Insulin Lispro 100 UNIT/ML 3 ML VIAL SUBCUT ×2 (12:15→21:04)
--- NOTE | 2020-08-22 14:31 | PM.EVENT ---
Event Note Date of Service: 08/22/20 Event Note: history and physical reviewed patient seen and examined patient is using right upper extremity has no weakness right lower extremity is also moving fairly well with no evidence of weakness patient is awake alert eating breakfast demanding to have 2 mg of Ativan prior to brain MRI will await neurological input prior to proceeding with MRI study, continue current treatment as ordered.
--- NOTE | 2020-08-22 15:10 | HO.PM.IMPN ---
Subjective Subjective Date of Service: 08/23/20 Interval History: patient in bed eating breakfast using her right arm, denies any pain complaining of right leg weakness , no other acute issues since admission. Review of Systems General no headache , no dizziness, no fever chills. CVS no chest pain, no palpitation. Respiratory no cough, no shortness of breath Gastrointestinal no nausea no vomiting, no abdominal pain Physical Exam Vital Signs: Vital Signs: Last Vital Signs Temp 97.9 F 08/22/20 11:14 Pulse 70 08/22/20 11:14 Resp 20 08/22/20 11:14 BP 116/61 08/22/20 11:14 Pulse Ox 100 08/22/20 11:14 Body Mass Index 24.7 General patient resting comfortably in no acute distress. Neck is supple no JVD. CVS regular rate rhythm, Respiratory lungs clear to auscultation, no respiratory distress Gastrointestinal abdomen soft, nontender, bowel sounds audible Extremities no edema. Neuro speech clear, normal strength bilateral upper extremity, right knee flexed, normal tone patient very resistant on extending the right leg Skin no rash Objective Data Current Medications Generic Name Dose Route Start Last Admin Trade Name Freq PRN Reason Stop Dose Admin Acetaminophen 650 mg 08/22/20 00:50 Acetaminophen 325 Mg Tablet PO Q6H PRN Pain, Mild (Pain Scale 1-3) Albuterol Sulfate 2 puff 08/22/20 02:11 Albuterol Sulfate 90 Mcg 8 Gm Inhaler INHALE Q6H PRN Shortness Of Breath Amlodipine Besylate 2.5 mg 08/22/20 09:00 08/22/20 08:45 Amlodipine Besylate 2.5 Mg Tablet PO 2.5 mg DAILY [facility] Administration Protocol Atorvastatin Calcium 10 mg 08/22/20 02:15 08/22/20 03:08 Atorvastatin Calcium 10 Mg Tablet PO Not Given BEDTIME [facility] Divalproex Sodium 500 mg 08/22/20 09:00 08/22/20 08:45 Divalproex Sodium 500 Mg Tablet.Dr PO 500 mg BID [facility] Administration Docusate Sodium 100 mg 08/22/20 00:50 Docusate Sodium 100 Mg Capsule PO DAILY PRN Constipation Enoxaparin Sodium 40 mg 08/22/20 01:00 08/22/20 01:47 Enoxaparin Sodium 40 Mg/0.4 Ml Syringe SUBCUT Not Given Q24H [facility] Hydroxyzine HCl 50 mg 08/22/20 02:11 08/22/20 03:32 Hydroxyzine Hcl 50 Mg Tablet PO 50 mg QID PRN Administration Anxiety Insulin Human Lispro 0 unit 08/22/20 07:30 08/22/20 12:15 Insulin Lispro 100 Unit/Ml 3 Ml Vial SUBCUT 4 unit QIDACHS [facility] Administration Protocol Omeprazole 20 mg 08/22/20 06:30 08/22/20 05:49 Omeprazole 20 Mg Capsule.Dr PO 20 mg DAILY@0630 [facility] Administration Ondansetron HCl 4 mg 08/22/20 00:50 Ondansetron Hcl 4 Mg/2 Ml Vial IVPUSH Q8H PRN Nausea and Vomiting Oxycodone HCl 5 mg 08/22/20 00:50 08/22/20 08:53 Oxycodone Hcl Immed Release 5 Mg Tablet PO 5 mg Q6H PRN Administration Pain, Severe (Pain Scale 7-10) Pharmacy Consult 1 each 08/21/20 21:42 Consult Rx Perform Med Rec MISCELLANE ONCE PRN Consult order Quetiapine Fumarate 100 mg 08/22/20 09:00 08/22/20 03:01 Quetiapine Fumarate 100 Mg Tablet PO 100 mg BID [facility] Administration Sodium Chloride 3 ml 08/22/20 00:50 08/22/20 07:25 0.9 % Sodium Chloride Flush 3 Ml Syringe IVFLUSH 3 ml QSHIFT [facility] Administration Trazodone HCl 300 mg 08/22/20 02:11 08/22/20 03:01 Trazodone Hcl 50 Mg Tablet PO 300 mg BEDTIME PRN Administration Sleep Labs CBC & Chem 7: 08/22/20 04:53 08/22/20 04:53 Assessment and Plan (1) Syncope: Status: Acute (2) History of seizure: Status: Acute (3) Hypertension: Status: Acute (4) Fall: Status: Acute (5) Asthma: Status: Acute Assessment and Plan: this is a 45-year-old female with past medical history of MS , history of chronic pain, hypertension, GERD, anxiety , depression who presents to the hospital stating weakness, fall, and incontinence. # right-sided weakness, back spasm, bowel and bladder incontinence followed by fall and syncope question etiology, no seizure-like activity noted by family, witnessed loss of consciousness for few min, doubt MS flare, patient not on treatment for MS at baseline patient is using right upper extremity, no spasms ,no pain , CT head showed no acute abnormality, EKG showed no acute abnormality await neuro input prior to further imaging studies and treatment continue supportive and symptomatic measures. # history of seizure disorder Continue divalproex and continue seizure precaution # chronic back pain no acute complaints. Continue oxycodone q.6 hours as needed # Hypertension - stable, continue amlodipine # hyperlipidemia - continue statin # asthma - no evidence of exacerbation, continue albuterol inhaler # mood disorder - continue hydroxyzine, Seroquel, and trazodone # DM follow point of care blood sugar and insulin sliding scale. patient not on oral hypoglycemics or insulin at home. # active illicit drug use patient drug toxicology positive for amphetamines, cocaine and opiates although patient is denying use, will consult care team. DVT prophylaxis: Lovenox
--- NOTE | 2020-08-22 16:22 | MHC.CM.PN ---
PT REPORTS SHE IS STAYING IN A HOTEL WITH HER WAITING TO TAKE POSSESSION OF HER NEW HOME. PT REPORTS SHE USES A CANE AT [facility] AND HAS NO IN HOME SERVICES. PT REPORTS SHE SEES A PCP AT [facility] FOR [facility] BUT SHE DOES NOT BELIEVE IT IS THE PROVIDER IN FILE HERE, CHRIS ABDI. PT REPORTS SHE DOES NOT HAVE ANY CLOTHING TO WEAR AT DC INCLUDING NO SHOES. CM WILL ATTEMPT TO FIND SOMETHING FOR HER. IMM DELIVERED. CURRENT DC PLAN IS HOME WITH NO SERVICES. PT WILL NEED ASSISTANCE WITH TRANSPORTATION
[2020-08-22 16:39] LABS: Glucose, Whole Blood 150 mg/dL (60-115)
[2020-08-22 20:45] LABS: Glucose, Whole Blood 156 mg/dL (60-115)
[2020-08-22] MEDS: Atorvastatin Calcium 10 MG TABLET PO (21:04)
[2020-08-23] VITALS (7 sets, daily range): BP systolic 104–141; BP diastolic 63–83; PULSE 68–98; RESP 18–20; TEMP 36.2–36.9; O2SAT 97–100
[2020-08-23] MEDS: oxyCODONE HCl Immed Release 5 MG TABLET PO ×3 (03:03→17:46)
[2020-08-23] MEDS: Omeprazole 20 MG CAPSULE.DR PO (05:38)
[2020-08-23 07:24] LABS: Glucose, Whole Blood 112 mg/dL (60-115)
[2020-08-23] MEDS: QUEtiapine Fumarate 100 MG TABLET PO ×2 (07:55→20:58)
[2020-08-23] MEDS: amLODIPine Besylate 2.5 MG TABLET PO (07:55)
[2020-08-23] MEDS: Divalproex Sodium 500 MG TABLET.DR PO ×2 (07:55→20:59)
[2020-08-23] MEDS: 0.9 % Sodium Chloride Flush 3 ML SYRINGE IVFLUSH ×3 (07:56→20:59)
[2020-08-23 12:37] LABS: Glucose, Whole Blood 118 mg/dL (60-115)
[2020-08-23 13:38] LABS: Amphetamine Screen Urine POSITIVE (Not Detect); Barbiturates, Urine Not Detected (Not Detect); Benzodiazepines Screen Urine Not Detected (Not Detect); Cannabinoid Screen Urine Not Detected (Not Detect); Cocaine Screen Urine POSITIVE (Not Detect); Opiate Screen Urine POSITIVE (Not Detect); Phencyclidine Screen Urine Not Detected (Not Detect)
[2020-08-23 13:42] LABS: Glucose Urine UA NEG (NEG); Leukocyte Esterase Urine NEG (NEG); Nitrite Urine NEG (NEG); Specific Gravity - Urine 1.025 (1.005-1.025); Urine Blood NEG (NEG); Urine Ketones 5 MG/DL (NEG); Urine Protein NEG (NEG-TRACE)
[2020-08-23 13:44] LABS: Appearance Urine HAZY; Color Urine YELLOW
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
[2020-08-23 16:48] LABS: Glucose, Whole Blood 105 mg/dL (60-115)
[2020-08-23] MEDS: traZODone HCL 50 MG TABLET 300 MG PO (20:57)
[2020-08-23] MEDS: hydrOXYzine HCL 50 MG TABLET PO (20:59)
[2020-08-23] MEDS: Atorvastatin Calcium 10 MG TABLET PO (20:59)
[2020-08-23 21:11] LABS: Glucose, Whole Blood 119 mg/dL (60-115)
[2020-08-24] MEDS: oxyCODONE HCl Immed Release 5 MG TABLET PO ×2 (00:36→09:42)
[2020-08-24 03:33] VITALS: BP 121/79; PULSE 86; RESP 16; TEMP 36.4; O2SAT 100
[2020-08-24] MEDS: Omeprazole 20 MG CAPSULE.DR PO (05:23)
[2020-08-24 07:56] VITALS: BP 118/72; PULSE 72; RESP 20; TEMP 36.4; O2SAT 99
[2020-08-24 08:25] LABS: Glucose, Whole Blood 112 mg/dL (60-115)
[2020-08-24 09:37] VITALS: BP 118/72; PULSE 72
[2020-08-24] MEDS: 0.9 % Sodium Chloride Flush 3 ML SYRINGE IVFLUSH (09:37)
[2020-08-24] MEDS: QUEtiapine Fumarate 100 MG TABLET PO (09:37)
[2020-08-24] MEDS: amLODIPine Besylate 2.5 MG TABLET PO (09:37)
[2020-08-24] MEDS: Divalproex Sodium 500 MG TABLET.DR PO (09:37)
--- NOTE | 2020-08-24 09:59 | MHC.CLN ---
RECOMMEND 2000 DM DIET R/T HX DM
[2020-08-24 10:25] VITALS: BP 118/72; PULSE 72
[2020-08-24 11:22] VITALS: BP 114/70; PULSE 82; RESP 20; TEMP 36.2; O2SAT 98
[2020-08-24 11:28] VITALS: RESP 14
--- NOTE | 2020-08-24 11:28 | PC.NURSE ---
Patient requesting nicotine to curb cigarette craving. notified. Nicotine ordered. Patient refused to take it. Patient refusing to get up with staff assistance. States I can't do that. I'll just fall. Just give me my pain medicine and maybe later I'll try to get up. Patient given prn oxy 5mg. When nurse reapproached patient she continued to refuse to even sit up on the side of the bed and attempt to stand. Patient educated that PT consult was placed and that she was expected to work with PT to in an effort to plan for services upon discharge. patient verbalizes understanding at this time but continues to refuse to work with staff to get OOB.
[2020-08-24 11:37] LABS: Glucose, Whole Blood 91 mg/dL (60-115)
--- NOTE | 2020-08-24 12:06 | MHC.CM.PN ---
per physical therapy pt will need str when dcd spoke with pt filed a hcp pt is agreea ble to str referrals made
--- NOTE | 2020-08-24 14:44 | MHC.CM.PN ---
PT ACCEPTED AT [facility] AUTH RECEIVED TRANSFER ARRANGED FOR 33:30 TODAY HCP FILED AND PLACED ON CHART
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
== END 2020-08-24 15:55 | disposition skilled nursing facility (03) | DRG 312 ==
LOC: HO.ED 08-22 00:11 → HO.IMC 08-22 00:12
PROVIDERS: Nurse Practitioner Family; Admitting Provider Internal Medicine; Emergency Provider Emergency Medicine; PCP Internal Medicine; Visit Provider Hospitalist
DX: R55 Syncope and collapse (principal); G35 Multiple sclerosis; K21.9 Gastro-esophageal reflux disease without esophagitis; E11.9 Type 2 diabetes mellitus without complications; F32.9 Major depressive disorder, single episode, unspecified; I10 Essential (primary) hypertension; F41.9 Anxiety disorder, unspecified; Z96.662 Presence of left artificial ankle joint; Z20.828 Contact with and (suspected) exposure to other viral communicable diseases; Z23 Encounter for immunization; G40.909 Epilepsy, unspecified, not intractable, without status epilepticus; E78.5 Hyperlipidemia, unspecified; J45.909 Unspecified asthma, uncomplicated; F17.210 Nicotine dependence, cigarettes, uncomplicated; Z71.6 Tobacco abuse counseling; Z88.5 Allergy status to narcotic agent; Z88.6 Allergy status to analgesic agent; Z79.899 Other long term (current) drug therapy
CPT/HCPCS: 0241U; 36415; 70450; 71045; 80048; 80307; 81003; 82947; 83605; 83735; 84484; 85025; 87040; 87635; 90686; 93005; 96361; 96375; 97162; 99285; 99291; J2930

== ENCOUNTER 2020-08-31 12:33 | Emergency (ER) | payer OTHER, SELFPAY ==
[2020-08-31 12:41] VITALS: BP 136/88; BP 138/82; PULSE 82; PULSE 83; RESP 16; TEMP 36.8; O2SAT 100; BMI 27.5
--- NOTE | 2020-08-31 12:44 | ED_ITS ---
HPI - General Adult General Chief complaint: Weakness <CAROL Avila - Last Filed: 08/31/20 21:34> Stated complaint: INCREASED WEAKNESS DUE TO MS <CAROL Avila - Last Filed: 08/31/20 21:34> Time Seen by Provider: 08/31/20 12:44 <CAROL Avila - Last Filed: 08/31/20 21:34> History of Present Illness HPI narrative: Patient with long history of MS with chronic pain in right leg and back comes today complaining of feeling weak in her legs and a specially increased pain in the chronic pain location of her right hip right thigh and lower back, she denies any new fall or new injury, she is also complaining of her headache which she has had before but today is worse than normal and she is also worried because she had a fall a week ago for which she was seen here in which she had hit her head and had a negative workup She is also complaining of a flare up of her reflex for which she takes omeprazole but now she is having pain she has had before which is a burning epigastric pain radiating into her throat which is continuous with no associated shortness of breath palpitations feeling faint, symptoms are not exertional and there is no sweating forehead She denies fever chills nausea vomiting diarrhea <CAROL Avila - Last Filed: 08/31/20 21:34> Related Data Home medications: Home Medications Medication Instructions Recorded Confirmed albuterol sulfate [ProAir HFA] 2 puff INHALATION Q6H PRN 08/21/20 09/05/20 amlodipine 2.5 mg PO DAILY 08/21/20 09/05/20 atorvastatin 10 mg PO BEDTIME 08/21/20 09/05/20 divalproex 500 mg PO BID 08/21/20 09/05/20 hydroxyzine HCl 50 mg PO QID PRN 08/21/20 09/05/20 pantoprazole [Protonix] 40 mg PO DAILY 08/21/20 09/05/20 quetiapine [Seroquel XR] 200 mg PO DAILY 08/21/20 09/05/20 trazodone 300 mg PO BEDTIME PRN 08/21/20 09/05/20 Previous Rx's Medication Instructions Recorded acetaminophen 650 mg PO Q6H PRN #30 tab 08/24/20 oxycodone 5 mg PO Q8H PRN #15 cap 08/31/20 <CAROL Avila - Last Filed: 08/31/20 21:34> Allergies/adverse reactions: Allergies Allergy/AdvReac Type Severity Reaction Status Date / Time Iodinated Contrast Media Allergy Severe ANAPHYLAXIS Verified 09/05/20 14:14 [CONTRAST, IV] ibuprofen [From Motrin] Allergy Intermediate SWELLING Verified 09/05/20 14:14 morphine [MORPHINE] Allergy Intermediate RASH Verified 09/05/20 14:14 acetaminophen [From TYLENOL] Allergy Mild HIVES Verified 09/05/20 14:14 bee pollen [Bee Stings] Allergy Mild UNKNOWN Verified 09/05/20 14:14 coconut Allergy Mild HIVES/SWELL Verified 09/05/20 14:14 ING latex [Latex] Allergy Mild HIVES Verified 09/05/20 14:14 NSAIDS (Non-Steroidal Allergy Mild HIVES Verified 09/05/20 14:14 Anti-Inflamma [NSAIDS (NON-STEROIDAL ANTI-INFLAMMA] aspirin [ASA] Allergy Unknown HIVES Verified 09/05/20 14:14 tramadol [TRAMADOL] Allergy Unknown UNKNOWN Verified 09/05/20 14:14 turkey Allergy Unknown UNKNOWN Verified 09/05/20 14:14 lidocaine Allergy Rash Verified 09/05/20 14:14 From Vicodin Allergy Mild RASH Uncoded 06/25/20 17:23 <CAROL Avila - Last Filed: 08/31/20 21:34> Review of Systems Review of Systems: No fever no chills no neck pain no fainting no palpitations no nausea vomiting or diarrhea no skin rash no calf pain no calf swelling <CAROL Avila - Last Filed: 08/31/20 21:34> Yes all other systems are reviewed and are negative <CAROL Avila - Last Filed: 08/31/20 21:34> [facility] Past Medical History Attestation statement: The following information was validated with the patient. <CAROL Avila - Last Filed: 08/31/20 21:34> [facility] Narrative: Patient denies any alcohol or drugs, confirms long history of MS and confirms all symptoms today are symptoms she has had before <CAROL Avila Last Filed: 08/31/20 21:34> Source: nursing notes reviewed <CAROL Avila - Last Filed: 08/31/20 21:34> Medical History: Medical History Asthma section wound complication Diabetes Fall GERD (gastroesophageal reflux disease) History of seizure Hypertension Multiple sclerosis Multiple sclerosis exacerbation <CAROL Avila - Last Filed: 08/31/20 21:34> Surgical History: Surgical History History of left ankle joint replacement History of thoracic surgery <CAROL Avila - Last Filed: 08/31/20 21:34> Social History Social History: Social History Household Members: Family Housing: Other Alcohol intake: unknown Smoking Status: Smoker, status unknown Tobacco Type: Cigarette Packs Per Day: 1 Cigarettes Per Day: 20.0 Second Hand Smoke Exposure: Yes Use of substances other than those prescribed or required for medical reasons: Unknown Substance Use Type: Painkillers Advance Directives: No Advance Directives Information Provided: Yes service: No Current occupational status: unemployed <CAROL Avila - Last Filed: 08/31/20 21:34> Physical Exam Vital Signs: Vital Signs: Last Vital Signs Temp 98.3 F 08/31/20 12:41 Pulse 89 08/31/20 14:57 Resp 16 08/31/20 14:57 BP 118/68 08/31/20 14:57 Pulse Ox 100 08/31/20 12:41 Body Mass Index 27.5 <CAROL Avila - Last Filed: 08/31/20 21:34> Vital Signs: Last Vital Signs Temp 98.3 F 08/31/20 12:41 Pulse 89 08/31/20 14:57 Resp 16 08/31/20 14:57 BP 118/68 08/31/20 14:57 Pulse Ox 100 08/31/20 12:41 Body Mass Index 27.5 <Oneal Cortés MD - Last Filed: 09/09/20 07:03> Patient is A&O x3, no acute distress cooperative Head is normocephalic atraumatic pupils equal round reactive to light extraocular motions intact the neck is supple and nontender the pharynx is moist and well hydrated the chest is clear to auscultation bilaterally with full symmetric equal breath sounds, no chest wall tenderness The abdomen is soft and nontender The extremities there is no swelling or deformity there is no calf swelling or tenderness, there is pain when she lifts her right leg and some tenderness in the right hip and thigh area which are the areas of pain as well as the right lower back there is no focal bony tenderness and there is a full range of motion, skin no wounds no rash <CAROL Avila - Last Filed: 08/31/20 21:34> Course Course Course Narrative: The patient was treated with analgesics with good affect her pain was relieved she was also treated with and acid with good effect no more acid pain Troponin and EKG did not show any evidence of ischemic heart disease and her symptoms were typical of prior acid reflux which she has had many times before CT of the head was negative with no subdural no bleeds Patient was discharged improved feeling better and was sent home <CAROL vAila - Last Filed: 08/31/20 21:34> I have reviewed the chart <Oneal Cortés MD - Last Filed: 09/09/20 07:03> Medical Decision Making Lab Data Lab results reviewed: Yes I reviewed the patient's lab results. <CAROL Avila - Last Filed: 08/31/20 21:34> Result diagrams: : 08/31/20 14:18 08/31/20 14:18 <CAROL Avila - Last Filed: 08/31/20 21:34> Labs: Lab Results 08/31/20 08/31/20 08/31/20 Range/Units 14:18 14:18 14:18 WBC 5.8 (4.8-10.8) X10*3/uL RBC 4.06 L (4.20-5.50) X10*6/uL Hgb 11.0 L (12.0-16.0) g/dl Hct 35.3 L (37-47) % MCV 86.9 (80-98) fL MCH 27.1 (27.0-33.0) pg MCHC 31.2 (31.0-35.0) g/dl RDW 16.0 (11.0-16.0) % Plt Count 205 (160-400) X10*3/uL MPV 11.1 (9.4-12.3) fL Immature Gran % (Auto) 1.2 H (0.0-0.4) % Neut % (Auto) 49.8 (45-73) % Lymph % (Auto) 41.5 H (20-40) % Whitman % (Auto) 6.2 (2-11) % Eos % (Auto) 1.0 (0-4) % Baso % (Auto) 0.3 (0-2) % Lymph # (Auto) 2.4 (1.2-4.9) X10*3/uL Whitman # (Auto) 0.4 (0.1-1.2) X10*3/uL Eos # (Auto) 0.1 (0.0-0.4) X10*3/uL Baso # (Auto) 0.0 (0.0-0.2) X10*3/uL Abs Immat Gran (auto) 0.07 H (0.00-0.03) X10*3/uL Absolute Neuts (auto) 2.9 (2.0-8.3) X10*3/uL Absolute Nucleated RBC 0.000 (0.0-0.012) X10*3/uL Nucleated RBC % (auto) 0.0 (0.0-0.2) /100WBC Sodium 139 (135-145) mmol/L Potassium 3.9 (3.3-5.1) mmol/l Chloride 104 (96-108) mmol/L Carbon Dioxide 29 (22-29) mmol/L Anion Gap 10 L (12-20) BUN 10 (9-16) mg/dL Creatinine 0.73 (0.5-1.4) mg/dL Estim Creat Clear Calc 116.6 Estimated GFR > 60 Random Glucose 77 D (60-115) mg/dL Calcium 8.5 (8.4-10.2) mg/dL Total Bilirubin < 0.2 (0.0-1.0) mg/dL Direct Bilirubin < 0.2 (0.0-0.5) mg/dL AST 7 (5-31) U/L ALT 6 (0-31) U/L Alkaline Phosphatase 63 (39-117) U/L Troponin I High Sens < 3.5 (<3.5-17.0) ng/L Total Protein 6.2 L (6.5-8.0) g/dL Albumin 3.7 (3.5-5.0) g/dL Lipase 39 (8-78) U/L Urine Color Urine Appearance Urine pH (5.0-8.0) Ur Specific [place] (1.005-1.025) Urine Protein (NEG-TRACE) MG/DL Urine Glucose (UA) (NEG) MG/DL Urine Ketones (NEG) MG/DL Urine Blood (NEG) Urine Nitrite (NEG) Ur Leukocyte Esterase (NEG) 08/31/20 Range/Units 14:20 WBC (4.8-10.8) X10*3/uL RBC (4.20-5.50) X10*6/uL Hgb (12.0-16.0) g/dl Hct (37-47) % MCV (80-98) fL MCH (27.0-33.0) pg MCHC (31.0-35.0) g/dl RDW (11.0-16.0) % Plt Count (160-400) X10*3/uL MPV (9.4-12.3) fL Immature Gran % (Auto) (0.0-0.4) % Neut % (Auto) (45-73) % Lymph % (Auto) (20-40) % Whitman % (Auto) (2-11) % Eos % (Auto) (0-4) % Baso % (Auto) (0-2) % Lymph # (Auto) (1.2-4.9) X10*3/uL Whitman # (Auto) (0.1-1.2) X10*3/uL Eos # (Auto) (0.0-0.4) X10*3/uL Baso # (Auto) (0.0-0.2) X10*3/uL Abs Immat Gran (auto) (0.00-0.03) X10*3/uL Absolute Neuts (auto) (2.0-8.3) X10*3/uL Absolute Nucleated RBC (0.0-0.012) X10*3/uL Nucleated RBC % (auto) (0.0-0.2) /100WBC Sodium (135-145) mmol/L Potassium (3.3-5.1) mmol/l Chloride (96-108) mmol/L Carbon Dioxide (22-29) mmol/L Anion Gap (12-20) BUN (9-16) mg/dL Creatinine (0.5-1.4) mg/dL Estim Creat Clear Calc Estimated GFR Random Glucose (60-115) mg/dL Calcium (8.4-10.2) mg/dL Total Bilirubin (0.0-1.0) mg/dL Direct Bilirubin (0.0-0.5) mg/dL AST (5-31) U/L ALT (0-31) U/L Alkaline Phosphatase (39-117) U/L Troponin I High Sens (<3.5-17.0) ng/L Total Protein (6.5-8.0) g/dL Albumin (3.5-5.0) g/dL Lipase (8-78) U/L Urine Color YELLOW Urine Appearance HAZY Urine pH 5.5 (5.0-8.0) Ur Specific [place] >= 1.030 H (1.005-1.025) Urine Protein NEG (NEG-TRACE) MG/DL Urine Glucose (UA) NEG (NEG) MG/DL Urine Ketones NEG (NEG) MG/DL Urine Blood NEG (NEG) Urine Nitrite NEG (NEG) Ur Leukocyte Esterase NEG (NEG) <CAROL Avila - Last Filed: 08/31/20 21:34> Lab Results 08/31/20 08/31/20 08/31/20 Range/Units 14:18 14:18 14:18 WBC 5.8 (4.8-10.8) X10*3/uL RBC 4.06 L (4.20-5.50) X10*6/uL Hgb 11.0 L (12.0-16.0) g/dl Hct 35.3 L (37-47) % MCV 86.9 (80-98) fL MCH 27.1 (27.0-33.0) pg MCHC 31.2 (31.0-35.0) g/dl RDW 16.0 (11.0-16.0) % Plt Count 205 (160-400) X10*3/uL MPV 11.1 (9.4-12.3) fL Immature Gran % (Auto) 1.2 H (0.0-0.4) % Neut % (Auto) 49.8 (45-73) % Lymph % (Auto) 41.5 H (20-40) % Whitman % (Auto) 6.2 (2-11) % Eos % (Auto) 1.0 (0-4) % Baso % (Auto) 0.3 (0-2) % Lymph # (Auto) 2.4 (1.2-4.9) X10*3/uL Whitman # (Auto) 0.4 (0.1-1.2) X10*3/uL Eos # (Auto) 0.1 (0.0-0.4) X10*3/uL Baso # (Auto) 0.0 (0.0-0.2) X10*3/uL Abs Immat Gran (auto) 0.07 H (0.00-0.03) X10*3/uL Absolute Neuts (auto) 2.9 (2.0-8.3) X10*3/uL Absolute Nucleated RBC 0.000 (0.0-0.012) X10*3/uL Nucleated RBC % (auto) 0.0 (0.0-0.2) /100WBC Sodium 139 (135-145) mmol/L Potassium 3.9 (3.3-5.1) mmol/l Chloride 104 (96-108) mmol/L Carbon Dioxide 29 (22-29) mmol/L Anion Gap 10 L (12-20) BUN 10 (9-16) mg/dL Creatinine 0.73 (0.5-1.4) mg/dL Estim Creat Clear Calc 116.6 Estimated GFR > 60 Random Glucose 77 D (60-115) mg/dL Calcium 8.5 (8.4-10.2) mg/dL Total Bilirubin < 0.2 (0.0-1.0) mg/dL Direct Bilirubin < 0.2 (0.0-0.5) mg/dL AST 7 (5-31) U/L ALT 6 (0-31) U/L Alkaline Phosphatase 63 (39-117) U/L Troponin I High Sens < 3.5 (<3.5-17.0) ng/L Total Protein 6.2 L (6.5-8.0) g/dL Albumin 3.7 (3.5-5.0) g/dL Lipase 39 (8-78) U/L Urine Color Urine Appearance Urine pH (5.0-8.0) Ur Specific [place] (1.005-1.025) Urine Protein (NEG-TRACE) MG/DL Urine Glucose (UA) (NEG) MG/DL Urine Ketones (NEG) MG/DL Urine Blood (NEG) Urine Nitrite (NEG) Ur Leukocyte Esterase (NEG) 08/31/20 Range/Units 14:20 WBC (4.8-10.8) X10*3/uL RBC (4.20-5.50) X10*6/uL Hgb (12.0-16.0) g/dl Hct (37-47) % MCV (80-98) fL MCH (27.0-33.0) pg MCHC (31.0-35.0) g/dl RDW (11.0-16.0) % Plt Count (160-400) X10*3/uL MPV (9.4-12.3) fL Immature Gran % (Auto) (0.0-0.4) % Neut % (Auto) (45-73) % Lymph % (Auto) (20-40) % Whitman % (Auto) (2-11) % Eos % (Auto) (0-4) % Baso % (Auto) (0-2) % Lymph # (Auto) (1.2-4.9) X10*3/uL Whitman # (Auto) (0.1-1.2) X10*3/uL Eos # (Auto) (0.0-0.4) X10*3/uL Baso # (Auto) (0.0-0.2) X10*3/uL Abs Immat Gran (auto) (0.00-0.03) X10*3/uL Absolute Neuts (auto) (2.0-8.3) X10*3/uL Absolute Nucleated RBC (0.0-0.012) X10*3/uL Nucleated RBC % (auto) (0.0-0.2) /100WBC Sodium (135-145) mmol/L Potassium (3.3-5.1) mmol/l Chloride (96-108) mmol/L Carbon Dioxide (22-29) mmol/L Anion Gap (12-20) BUN (9-16) mg/dL Creatinine (0.5-1.4) mg/dL Estim Creat Clear Calc Estimated GFR Random Glucose (60-115) mg/dL Calcium (8.4-10.2) mg/dL Total Bilirubin (0.0-1.0) mg/dL Direct Bilirubin (0.0-0.5) mg/dL AST (5-31) U/L ALT (0-31) U/L Alkaline Phosphatase (39-117) U/L Troponin I High Sens (<3.5-17.0) ng/L Total Protein (6.5-8.0) g/dL Albumin (3.5-5.0) g/dL Lipase (8-78) U/L Urine Color YELLOW Urine Appearance HAZY Urine pH 5.5 (5.0-8.0) Ur Specific [place] >= 1.030 H (1.005-1.025) Urine Protein NEG (NEG-TRACE) MG/DL Urine Glucose (UA) NEG (NEG) MG/DL Urine Ketones NEG (NEG) MG/DL Urine Blood NEG (NEG) Urine Nitrite NEG (NEG) Ur Leukocyte Esterase NEG (NEG) <Oneal Cortés MD - Last Filed: 09/09/20 07:03> Imaging Data CT scan - head: Radiologist's impression: This CT examination was performed using dose optimization techniques as appropriate, variously including the following: *Automated exposure control *Adjustment of mA and/or kV according to patient size (this includes techniques or standardized protocols for targeted exams where dose is matched to indication/reason for exam; i.e. extremities or head) *Use of iterative reconstruction technique DLP: 641 mGy-cm FINDINGS: There is no evidence of an extra-axial collection. There is no evidence extra-axial hemorrhage. The ventricles and extra-axial CSF spaces are prominent, similar to previous exams. Carlton-white matter differentiation is normal. No mass, mass effect or infarct is seen. No skull fracture is seen. There may be abnormal alignment of the left temporomandibular joint. Clinical correlation recommended. Visualized paranasal sinuses, mastoid air cells and middle ears are clear. CT/CT head/brain wo con IMPRESSION: No acute intracranial pathology. Prominent ventricles and extra-axial CSF spaces for the patient's age similar to previous exam. Question abnormal alignment of the left temporomandibular joint. Clinical correlation recommended. <CAROL Avila Last Filed: 08/31/20 21:34> ECG Data Attestation: I personally reviewed and interpreted this ECG as follows: <CAROL Avila Last Filed: 08/31/20 21:34> Interpretation: ECG was normal sinus rhythm with a rate of 82 with a normal MT interval normal QRS duration and normal QT, no acute ST changes no acute ischemic changes <CAROL Avila Last Filed: 08/31/20 21:34> Discharge Plan Discharge Clinical Impression: Chronic lower limb pain <CAROL Avila Last Filed: 08/31/20 21:34> Patient Disposition: Home, Self-Care <CAROL Avila Last Filed: 08/31/20 21:34> Additional Instructions: Follow with primary care doctor Return to ER any concerns The workup today did not reveal any dangerous condition <CAROL Avila Last Filed: 08/31/20 21:34> Prescriptions: New oxycodone 5 mg capsule 5 mg PO Q8H PRN (Reason: pain) Qty: 15 RF: 0 No Action atorvastatin 10 mg Tablet 10 mg PO BEDTIME RF: 0 amlodipine 2.5 mg Tablet 2.5 mg PO DAILY RF: 0 hydroxyzine HCl 50 mg Tablet 50 mg PO QID PRN (Reason: Anxiety) RF: 0 divalproex 500 mg Tablet,Delayed Release (Dr/Ec) 500 mg PO BID RF: 0 pantoprazole [Protonix] 40 mg Tablet,Delayed Release (Dr/Ec) 40 mg PO DAILY RF: 0 trazodone 300 mg Tablet 300 mg PO BEDTIME PRN (Reason: Sleep) RF: 0 albuterol sulfate [ProAir HFA] 90 mcg/actuation Hfa Aerosol Inhaler 2 puff INHALATION Q6H PRN (Reason: Shortness Of Breath) RF: 0 quetiapine [Seroquel XR] 200 mg Tablet Extended Release 24 Hr 200 mg PO DAILY RF: 0 acetaminophen 325 mg Tablet 650 mg PO Q6H PRN (Reason: Pain, Mild (Pain Scale 1-3)) Qty: 30 RF: 0 <CAROL Avila Last Filed: 08/31/20 21:34> Interventions: ED Discharge Assessment Last Done: 08/31/20 16:36 <CAROL Avila - Last Filed: 08/31/20 21:34> Discharge Date/Time: 08/31/20 16:36 <CAROL Avila - Last Filed: 08/31/20 21:34>
--- NOTE | 2020-08-31 13:09 | ECG_ITS ---
Test Reason : WEAKNESS Blood Pressure : / mmHG Vent. Rate : 082 BPM Atrial Rate : 082 BPM P-R Int : 158 ms QRS Dur : 094 ms QT Int : 346 ms P-R-T Axes : 061 -10 023 degrees QTc Int : 404 ms Normal sinus rhythm Nonspecific T wave abnormality Abnormal ECG When compared with ECG of 21-AUG-2020 20:29, Nonspecific T wave abnormality now evident in Inferior leads Referred By: Maikel Mtz Electronically Signed By:RYAN WINKLER MD
--- NOTE | 2020-08-31 13:12 | CT_ITS ---
EXAMINATION: CT HEAD WITHOUT CONTRAST CLINICAL INFORMATION: Fall. Headache. COMPARISON: Previous CT scans most recent 08/21/2020 TECHNIQUE: Contiguous axial imaging was performed from the skull base to vertex without intravenous administration of contrast. This CT examination was performed using dose optimization techniques as appropriate, variously including the following: *Automated exposure control *Adjustment of mA and/or kV according to patient size (this includes techniques or standardized protocols for targeted exams where dose is matched to indication/reason for exam; i.e. extremities or head) *Use of iterative reconstruction technique DLP: 641 mGy-cm FINDINGS: There is no evidence of an extra-axial collection. There is no evidence extra-axial hemorrhage. The ventricles and extra-axial CSF spaces are prominent, similar to previous exams. Carlton-white matter differentiation is normal. No mass, mass effect or infarct is seen. No skull fracture is seen. There may be abnormal alignment of the left temporomandibular joint. Clinical correlation recommended. Visualized paranasal sinuses, mastoid air cells and middle ears are clear. CT/CT head/brain wo con IMPRESSION: No acute intracranial pathology. Prominent ventricles and extra-axial CSF spaces for the patient's age similar to previous exam. Question abnormal alignment of the left temporomandibular joint. Clinical correlation recommended.
[2020-08-31] MEDS: Famotidine 20 MG TABLET PO (13:48)
[2020-08-31] MEDS: Magnesium Hydrox/Alum Hydrox 30 ML ORAL.SUSP PO (13:48)
[2020-08-31] MEDS: oxyCODONE HCl Immed Release 5 MG TABLET 10 MG PO (13:48)
[2020-08-31 14:25] LABS: Basophils Percent Auto 0.3 % (0-2); Eosinophils Absolute Auto 0.1 X10*3/uL (0.0-0.4); Hematocrit 35.3 % (37-47); Imm Gran Abs Auto 0.07 X10*3/uL (0.00-0.03); Imm Gran Pct Auto 1.2 % (0.0-0.4); Lymphocytes Absolute Auto 2.4 X10*3/uL (1.2-4.9); Lymphocytes Percent Auto 41.5 % (20-40); MANUAL DIFF FLAG NO; Mean Corpuscular HGB Conc 31.2 g/dl (31.0-35.0); Mean Corpuscular Hemoglobin 27.1 pg (27.0-33.0); Mean Corpuscular Volume 86.9 fL (80-98); Mean Platelet Volume 11.1 fL (9.4-12.3); Monocytes Absolute Auto 0.4 X10*3/uL (0.1-1.2); Monocytes Percent Auto 6.2 % (2-11); Neutrophils Absolute Auto 2.9 X10*3/uL (2.0-8.3); Neutrophils Percent Auto 49.8 % (45-73); Platelet Count 205 X10*3/uL (160-400); Red Blood Count 4.06 X10*6/uL (4.20-5.50); White Blood Count 5.8 X10*3/uL (4.8-10.8)
[2020-08-31 14:31] LABS: Glucose Urine UA NEG (NEG); Leukocyte Esterase Urine NEG (NEG); Nitrite Urine NEG (NEG); PH 5.5 (5.0-8.0); Specific Gravity - Urine >= 1.030 (1.005-1.025); Urine Blood NEG (NEG); Urine Ketones NEG (NEG); Urine Protein NEG (NEG-TRACE)
[2020-08-31 14:34] LABS: Appearance Urine HAZY; Color Urine YELLOW
[2020-08-31 14:56] LABS: Alanine Aminotransferase 6 U/L (0-31); Albumin Level 3.7 g/dL (3.5-5.0); Alkaline Phosphatase 63 U/L (39-117); Anion Gap 10 (12-20); Aspartate Amino Transferase 7 U/L (5-31); Bilirubin Direct < 0.2 mg/dL (0.0-0.5); Bilirubin Total < 0.2 mg/dL (0.0-1.0); Blood Urea Nitrogen 10 mg/dL (9-16); Calcium 8.5 mg/dL (8.4-10.2); Carbon Dioxide 29 mmol/L (22-29); Chloride 104 mmol/L (96-108); Creatinine Clr Calc Pharmacy 116.6; Estimated Glomerular Filt Rate > 60; Glucose Random 77 mg/dL (60-115); Lipase 39 U/L (8-78); Potassium 3.9 mmol/l (3.3-5.1); Sodium 139 mmol/L (135-145); Total Protein 6.2 g/dL (6.5-8.0)
[2020-08-31 14:57] VITALS: BP 118/68; PULSE 89; RESP 16
[2020-08-31 14:57] LABS: Troponin-I High Sensitivity < 3.5 ng/L (<3.5-17.0)
[2020-08-31] MEDS: HYDROmorphone HCl 0.5 MG/0.5 ML SYRINGE IVPUSH (15:10)
== END 2020-08-31 16:36 | disposition home or self-care (01) ==
PROVIDERS: Physician Assistant Medical; Emergency Provider Emergency Medicine; PCP Internal Medicine
DX: M79.661 Pain in right lower leg (principal); R10.13 Epigastric pain; R51.9 Headache, unspecified; M25.551 Pain in right hip; F17.210 Nicotine dependence, cigarettes, uncomplicated; Z71.6 Tobacco abuse counseling; Z79.899 Other long term (current) drug therapy
CPT/HCPCS: 36415; 70450; 80048; 80076; 81003; 83690; 84484; 85025; 93005; 96374; 99284; J1170

== ENCOUNTER 2020-09-05 13:54 | Emergency (ER) | payer OTHER, SELFPAY ==
--- NOTE | 2020-09-05 08:35 | ECG_ITS ---
Test Reason : DIZZ Blood Pressure : / mmHG Vent. Rate : 079 BPM Atrial Rate : 079 BPM P-R Int : 152 ms QRS Dur : 090 ms QT Int : 424 ms P-R-T Axes : 061 -14 046 degrees QTc Int : 486 ms Normal sinus rhythm Possible Left atrial enlargement Nonspecific T wave abnormality Abnormal ECG No previous ECGs available Referred By: Guanakito Shaw Electronically Signed By:MARITZA BASURTO MD
--- NOTE | 2020-09-05 14:06 | CT_ITS ---
EXAMINATION: CT HEAD WITHOUT CONTRAST CLINICAL INFORMATION: Right-sided weakness with history of MS. COMPARISON: CT brain 08/31/2020. TECHNIQUE: Contiguous axial imaging was performed from the skull base to vertex without intravenous administration of contrast. This CT examination was performed using dose optimization techniques as appropriate, variously including the following: *Automated exposure control *Adjustment of mA and/or kV according to patient size (this includes techniques or standardized protocols for targeted exams where dose is matched to indication/reason for exam; i.e. extremities or head) *Use of iterative reconstruction technique DLP: 653 mGy-cm FINDINGS: There is no evidence of acute intracranial hemorrhage or territorial infarction. No abnormal mass effect or midline shift is seen. Carlton to white matter differentiation is well preserved. No extra-axial fluid collections are identified. The lateral ventricles are enlarged but symmetrical. Mild prominence of cortical sulci seen. There is no abnormal attenuation within the brain parenchyma. The osseous structures and soft tissues are normal. The mastoid air cells and visualized portions of the paranasal sinuses are well aerated. CT/CT head/brain wo con IMPRESSION: No acute intracranial process seen. Mild cerebral volume loss.
--- NOTE | 2020-09-05 14:08 | ED.NEUROSD ---
HPI - Neuro Symptoms/Deficit General Chief Complaint: Stroke Stated Complaint: STROKE ALERT, WEAKNESS Time Seen by Provider: 09/05/20 13:58 Source: patient and EMS Mode of arrival: EMS Limitations: no limitations History of Present Illness HPI Narrative: patient has history of chronic MS bipolar disorder PTSD asthma and seizures not on any medication for MS been here 2 times this month for headaches and fall had it [address] scan of head both negative had MRI in 2018 without any active lesions. Today since :45 patient noticed her right hand is weaker than before. Also right leg is weak. Patient is under lot of stress lately for last 3 days as her brother was murdered yesterday. No other weakness no speech problem no loss of consciousness Time: : Location: right arm and left leg History of same: Yes Severity: moderate Quality: weak Relieving factors: none Exacerbating factors: none Context: sudden onset On Anticoagulants: No Related Data Home Medications Medication Instructions Recorded Confirmed albuterol sulfate [ProAir HFA] 2 puff INHALATION Q6H PRN 08/21/20 08/22/20 amlodipine 2.5 mg PO DAILY 08/21/20 08/22/20 atorvastatin 10 mg PO BEDTIME 08/21/20 08/22/20 divalproex 500 mg PO BID 08/21/20 08/22/20 hydroxyzine HCl 50 mg PO QID PRN 08/21/20 08/22/20 pantoprazole [Protonix] 40 mg PO DAILY 08/21/20 08/22/20 quetiapine [Seroquel XR] 200 mg PO DAILY 08/21/20 08/22/20 trazodone 300 mg PO BEDTIME PRN 08/21/20 08/22/20 Previous Rx's Medication Instructions Recorded acetaminophen 650 mg PO Q6H PRN #30 tab 08/24/20 nicotine (polacrilex) 2 mg BUCCAL Q2H PRN #30 ea 08/24/20 oxycodone 5 mg PO Q8H PRN #15 cap 08/31/20 Allergies Allergy/AdvReac Type Severity Reaction Status Date / Time Iodinated Contrast Media Allergy Severe ANAPHYLAXIS Verified 09/05/20 14:14 [CONTRAST, IV] ibuprofen [From Motrin] Allergy Intermediate SWELLING Verified 09/05/20 14:14 morphine [MORPHINE] Allergy Intermediate RASH Verified 09/05/20 14:14 acetaminophen [From TYLENOL] Allergy Mild HIVES Verified 09/05/20 14:14 bee pollen [Bee Stings] Allergy Mild UNKNOWN Verified 09/05/20 14:14 coconut Allergy Mild HIVES/SWELL Verified 09/05/20 14:14 ING latex [Latex] Allergy Mild HIVES Verified 09/05/20 14:14 NSAIDS (Non-Steroidal Allergy Mild HIVES Verified 09/05/20 14:14 Anti-Inflamma [NSAIDS (NON-STEROIDAL ANTI-INFLAMMA] aspirin [ASA] Allergy Unknown HIVES Verified 09/05/20 14:14 tramadol [TRAMADOL] Allergy Unknown UNKNOWN Verified 09/05/20 14:14 turkey Allergy Unknown UNKNOWN Verified 09/05/20 14:14 lidocaine Allergy Rash Verified 09/05/20 14:14 From Vicodin Allergy Mild RASH Uncoded 06/25/20 17:23 Review of Systems Constitutional: Constitutional: Reports no additional constitutional complaints Eyes: Eyes: Reports no additional eye complaints ENT: Reports Normal hearing present, Denies vertigo and Denies dizziness Cardiovascular: Cardiovascular: Reports no additional cardiovascular complaints Respiratory: Respiratory: Reports no additional respiratory complaints, Denies chest congestion and Denies cough Gastrointestinal: Gastrointestinal: Reports no additional gastrointestinal complaints, Denies abdominal pain, Denies melena and Denies vomiting Genitourinary: Genitourinary: Reports no additional female genitourinary complaints Musculoskeletal: Musculoskeletal: Reports as per HPI and Reports muscle weakness Neurologic: Reports as per HPI, Reports Normal hearing present, Denies Neuro-related abnormal movements, Denies Abnormal speech present, Denies confusion, Denies vertigo, Denies dizziness, Denies lack of coordination, Reports focal weakness and Denies paresthesias Psychiatric: Psychiatric: Denies confusion and Reports depression PMF Past Medical History Medical History Asthma section wound complication Diabetes Fall GERD (gastroesophageal reflux disease) History of seizure Hypertension Multiple sclerosis Multiple sclerosis exacerbation Surgical History History of left ankle joint replacement History of thoracic surgery Social History Social History Household Members: Family Housing: Other Alcohol intake: never Smoking Status: Current every day smoker Tobacco Type: Cigarette Packs Per Day: 1 Cigarettes Per Day: 20.0 Second Hand Smoke Exposure: Yes Substance Use Type: Painkillers Advance Directives: No Advance Directives Information Provided: Yes service: No Current occupational status: unemployed Physical Exam Vital Signs: Vital Signs: Last Vital Signs Temp 98.5 F 09/05/20 14:14 Pulse 98 09/05/20 14:14 Resp 18 09/05/20 14:14 BP 108/75 09/05/20 14:14 Pulse Ox 99 09/05/20 14:14 Body Mass Index 31.5 Const: General: cooperative, healthy appearing, comfortable and no acute distress; No confusion Nutritional Appearance: average body habitus Orientation/consciousness: oriented to person, oriented to place, oriented to time and No confusion Limitations: no limitations HENMT: Head: Yes normal to inspection Ears: hearing grossly normal bilaterally General nose exam: Normal external nose present Mouth: moist mucous membranes Eyes: Conjunctivae: conjunctivae normal Sclerae: sclerae normal Pupils: Equal, round and reactive pupils present EOM: EOMs intact bilaterally Neck: Neck: Yes normal visual inspection Thyroid: Thyroid normal Resp: Effort & Inspection: normal respiratory effort and able to speak in complete sentences Auscultation: clear to auscultation bilaterally, no crackles, no rales and no rhonchi Cardio: Palpation: normal PMI Rate: regular rate Rhythm: regular rhythm Heart sounds: S2 normal heart sound present and no murmurs GI: Inspection: Yes normal to inspection Palpation (GI): Soft to palpation and nontender Auscultation: normal bowel sounds : General: Yes no CVA tenderness Back/Spine/Pelvis: Back: no CVA tenderness Skin: General skin exam: no rashes or lesions noted Neuro: Other: patient with subjective weakness of the right arm able to hold the forearm when right arm is abducted with support but otherwise dropping it if she has to lift. Psychogenic weakness suspected General: oriented to person, oriented to place, oriented to time and No confusion Cranial nerves: Yes Equal, round and reactive pupils present and Yes Normal hearing present Speech: No Abnormal speech present Motor exam (neuro): no tremor noted Sensory Exam: Normal double simultaneous stimulation for sensation MDM - Neuro Symptoms/Deficit MDM Narrative Medical decision making narrative: patient has history of chronic MS not on any medication complaint right-sided weakness which seems to be functional as she is moving her right extremity pretty well in the ER , her CT scan of the head is essentially negative labs are stable she had previous MRI in 2018 which showed chronic MS, pt requesting to go to rehab as she had frequent falls at this time there is no finding of acute MS flare up. Will consult case management for placement. Patient signed out to Dr. Grace for disposition Lab Data Result diagrams: 09/05/20 15:13 09/05/20 15:13 Labs: Lab Results 09/05/20 09/05/20 09/05/20 Range/Units 14:18 15:13 15:13 WBC 6.0 (4.8-10.8) X10*3/uL RBC 3.84 L (4.20-5.50) X10*6/uL Hgb 10.3 L (12.0-16.0) g/dl Hct 32.9 L (37-47) % MCV 85.7 (80-98) fL MCH 26.8 L (27.0-33.0) pg MCHC 31.3 (31.0-35.0) g/dl RDW 16.1 H (11.0-16.0) % Plt Count 207 (160-400) X10*3/uL MPV 11.8 (9.4-12.3) fL Immature Gran % (Auto) 0.3 (0.0-0.4) % Neut % (Auto) 60.7 (45-73) % Lymph % (Auto) 31.7 (20-40) % [place] % (Auto) 6.3 (2-11) % Eos % (Auto) 0.8 (0-4) % Baso % (Auto) 0.2 (0-2) % Lymph # (Auto) 1.9 (1.2-4.9) X10*3/uL [place] # (Auto) 0.4 (0.1-1.2) X10*3/uL Eos # (Auto) 0.1 (0.0-0.4) X10*3/uL Baso # (Auto) 0.0 (0.0-0.2) X10*3/uL Abs Immat Gran (auto) 0.02 (0.00-0.03) X10*3/uL Absolute Neuts (auto) 3.6 (2.0-8.3) X10*3/uL Absolute Nucleated RBC 0.000 (0.0-0.012) X10*3/uL Nucleated RBC % (auto) 0.0 (0.0-0.2) /100WBC ESR 6 (0-20) MM/HR Sodium Potassium Chloride Carbon Dioxide Anion Gap BUN Creatinine Estim Creat Clear Calc Estimated GFR POC Glucose 121 H (60-115) mg/dL Random Glucose Calcium C-Reactive Protein 09/05/20 Range/Units 15:13 WBC (4.8-10.8) X10*3/uL RBC (4.20-5.50) X10*6/uL Hgb (12.0-16.0) g/dl Hct (37-47) % MCV (80-98) fL MCH (27.0-33.0) pg MCHC (31.0-35.0) g/dl RDW (11.0-16.0) % Plt Count (160-400) X10*3/uL MPV (9.4-12.3) fL Immature Gran % (Auto) (0.0-0.4) % Neut % (Auto) (45-73) % Lymph % (Auto) (20-40) % [place] % (Auto) (2-11) % Eos % (Auto) (0-4) % Baso % (Auto) (0-2) % Lymph # (Auto) (1.2-4.9) X10*3/uL [place] # (Auto) (0.1-1.2) X10*3/uL Eos # (Auto) (0.0-0.4) X10*3/uL Baso # (Auto) (0.0-0.2) X10*3/uL Abs Immat Gran (auto) (0.00-0.03) X10*3/uL Absolute Neuts (auto) (2.0-8.3) X10*3/uL Absolute Nucleated RBC (0.0-0.012) X10*3/uL Nucleated RBC % (auto) (0.0-0.2) /100WBC ESR (0-20) MM/HR Sodium Cancelled Potassium Cancelled Chloride Cancelled Carbon Dioxide Cancelled Anion Gap Cancelled BUN Cancelled Creatinine Cancelled Estim Creat Clear Calc Cancelled Estimated GFR Cancelled POC Glucose (60-115) mg/dL Random Glucose Cancelled Calcium Cancelled C-Reactive Protein Cancelled NIH Stroke Scale Internal: Initial- Upon Arrival Level of Consciousness: Alert Level of Consciousness Questions: Answers both questions correctly Level of Consciousness Commands: Performs both tasks correctly Best Gaze: Normal Visual: No visual loss Facial Palsy: Normal Motor Arm (Right): Some effort against gravity Motor Arm (Left): No drift Motor Leg (Right): Some effort against gravity Motor Leg (Left): No drift Limb Ataxia: Absent Sensory: Normal Best Language: No aphasia Dysarthia: Normal Extinction and Inattention: No abnormality Score: 4 Discharge Plan Discharge Clinical Impression: Weakness generalized, Multiple sclerosis Patient Disposition: er SNF Prescriptions: No Action oxycodone 5 mg capsule 5 mg PO Q8H PRN (Reason: pain) Qty: 15 RF: 0 atorvastatin 10 mg Tablet 10 mg PO BEDTIME RF: 0 amlodipine 2.5 mg Tablet 2.5 mg PO DAILY RF: 0 hydroxyzine HCl 50 mg Tablet 50 mg PO QID PRN (Reason: Anxiety) RF: 0 divalproex 500 mg Tablet,Delayed Release (Dr/Ec) 500 mg PO BID RF: 0 pantoprazole [Protonix] 40 mg Tablet,Delayed Release (Dr/Ec) 40 mg PO DAILY RF: 0 trazodone 300 mg Tablet 300 mg PO BEDTIME PRN (Reason: Sleep) RF: 0 albuterol sulfate [ProAir HFA] 90 mcg/actuation Hfa Aerosol Inhaler 2 puff INHALATION Q6H PRN (Reason: Shortness Of Breath) RF: 0 quetiapine [Seroquel XR] 200 mg Tablet Extended Release 24 Hr 200 mg PO DAILY RF: 0 acetaminophen 325 mg Tablet 650 mg PO Q6H PRN (Reason: Pain, Mild (Pain Scale 1-3)) Qty: 30 RF: 0 nicotine (polacrilex) 2 mg Mini Lozenge 2 mg buccal Q2H PRN (Reason: Nicotine Cravings) Qty: 30 RF: 0
[2020-09-05 14:14] VITALS: BP 107/77; BP 108/75; PULSE 93; PULSE 98; RESP 18; TEMP 36.9; O2SAT 98; O2SAT 99; BMI 31.5
[2020-09-05 14:22] LABS: Glucose, Whole Blood 121 mg/dL (60-115)
[2020-09-05 15:19] LABS: MANUAL DIFF FLAG NO
[2020-09-05 15:21] LABS: Basophils Percent Auto 0.2 % (0-2); Eosinophils Absolute Auto 0.1 X10*3/uL (0.0-0.4); Eosinophils Percent Auto 0.8 % (0-4); Hematocrit 32.9 % (37-47); Hemoglobin 10.3 g/dl (12.0-16.0); Imm Gran Abs Auto 0.02 X10*3/uL (0.00-0.03); Imm Gran Pct Auto 0.3 % (0.0-0.4); Lymphocytes Absolute Auto 1.9 X10*3/uL (1.2-4.9); Lymphocytes Percent Auto 31.7 % (20-40); Mean Corpuscular HGB Conc 31.3 g/dl (31.0-35.0); Mean Corpuscular Hemoglobin 26.8 pg (27.0-33.0); Mean Corpuscular Volume 85.7 fL (80-98); Mean Platelet Volume 11.8 fL (9.4-12.3); Monocytes Absolute Auto 0.4 X10*3/uL (0.1-1.2); Monocytes Percent Auto 6.3 % (2-11); Neutrophils Absolute Auto 3.6 X10*3/uL (2.0-8.3); Neutrophils Percent Auto 60.7 % (45-73); Platelet Count 207 X10*3/uL (160-400); Red Blood Count 3.84 X10*6/uL (4.20-5.50); Red Cell Distribution Width 16.1 % (11.0-16.0)
--- NOTE | 2020-09-05 15:58 | PC.NURSE ---
Per case management pt will be a bed search for rehab, will stay in ED until monday and needs a PT eval. MD Nelson aware.
[2020-09-05 16:00] VITALS: RESP 18
--- NOTE | 2020-09-05 16:02 | MHC.CM.ED ---
CM met with patient at the bedside who reports she came to ED because she thought she had a stroke, CT is negative. Patient's last stay she went to [facility] and would like a referral sent to return there. CM instructed we would need a PT eval to get auth from insurance. referral made via allscripts. ED nurse updated and PT eval ordered. CM will continue to follow patient for discharge needs.
[2020-09-05 16:03] LABS: Erythrocyte Sedimentation Rate 6 MM/HR (0-20)
[2020-09-05 18:00] VITALS: PULSE 74; RESP 16; O2SAT 99
[2020-09-05] MEDS: oxyCODONE HCl Immed Release 5 MG TABLET PO (19:43)
--- NOTE | 2020-09-05 19:50 | PC.NURSE ---
PT IS SLEEPING AT THIS TIME. PT MEDICATED PER MAR.
--- NOTE | 2020-09-05 20:03 | PC.NURSE ---
PT IS SLEEPING AT THIS TIME, DAUGHTER HARIS CALLED AND PROVIDED PHONE NUMBER [phone], UNABLE TO CONNECT TO A PERSON GOES TO A VOICE MAIL.
[2020-09-05 22:00] VITALS: BP 105/65; PULSE 72; RESP 18; TEMP 36.4; O2SAT 99
[2020-09-05] MEDS: Divalproex Sodium 500 MG TABLET.DR PO (22:25)
[2020-09-05] MEDS: traZODone HCL 100 MG TABLET 300 MG PO (22:27)
--- NOTE | 2020-09-05 23:05 | PC.NURSE ---
pt given crackers and drink. Pt requesting Benadryl for itchinesses. provider is aware.
[2020-09-05] MEDS: hydrOXYzine HCL 50 MG TABLET PO (23:21)
[2020-09-06] VITALS: RESP 16
--- NOTE | 2020-09-06 01:28 | PC.NURSE ---
no sign of distress at this time pt is sleeping.
[2020-09-06 02:00] VITALS: RESP 18
[2020-09-06] MEDS: oxyCODONE HCl Immed Release 5 MG TABLET PO (04:28)
--- NOTE | 2020-09-06 04:34 | PC.NURSE ---
PT MEDICATED PER DEC. PT GIVEN SOMETHING TO DRINK.
[2020-09-06 05:28] VITALS: RESP 16
--- NOTE | 2020-09-06 06:17 | PC.NURSE ---
Pt incontinent of urine, complete bed change and attire. pt able to roll and clean herself
[2020-09-06] MEDS: Omeprazole 20 MG CAPSULE.DR PO (07:33)
[2020-09-06 07:35] VITALS: BP 95/52; PULSE 75; RESP 17; TEMP 36.1; O2SAT 98
--- NOTE | 2020-09-06 07:56 | ED_ITS ---
HPI - Neuro Symptoms/Deficit General Chief Complaint: Stroke Stated Complaint: STROKE ALERT, WEAKNESS Time Seen by Provider: 09/05/20 13:58 Source: patient and EMS Mode of arrival: EMS Limitations: no limitations History of Present Illness Location: right arm and left leg History of same: Yes Severity: moderate Quality: weak Relieving factors: none Exacerbating factors: none On Anticoagulants: No Related Data Home Medications Medication Instructions Recorded Confirmed albuterol sulfate [ProAir HFA] 2 puff INHALATION Q6H PRN 08/21/20 09/05/20 amlodipine 2.5 mg PO DAILY 08/21/20 09/05/20 atorvastatin 10 mg PO BEDTIME 08/21/20 09/05/20 divalproex 500 mg PO BID 08/21/20 09/05/20 hydroxyzine HCl 50 mg PO QID PRN 08/21/20 09/05/20 pantoprazole [Protonix] 40 mg PO DAILY 08/21/20 09/05/20 quetiapine [Seroquel XR] 200 mg PO DAILY 08/21/20 09/05/20 trazodone 300 mg PO BEDTIME PRN 08/21/20 09/05/20 Previous Rx's Medication Instructions Recorded acetaminophen 650 mg PO Q6H PRN #30 tab 08/24/20 oxycodone 5 mg PO Q8H PRN #15 cap 08/31/20 Allergies Allergy/AdvReac Type Severity Reaction Status Date / Time Iodinated Contrast Media Allergy Severe ANAPHYLAXIS Verified 09/05/20 14:14 [CONTRAST, IV] ibuprofen [From Motrin] Allergy Intermediate SWELLING Verified 09/05/20 14:14 morphine [MORPHINE] Allergy Intermediate RASH Verified 09/05/20 14:14 acetaminophen [From TYLENOL] Allergy Mild HIVES Verified 09/05/20 14:14 bee pollen [Bee Stings] Allergy Mild UNKNOWN Verified 09/05/20 14:14 coconut Allergy Mild HIVES/SWELL Verified 09/05/20 14:14 ING latex [Latex] Allergy Mild HIVES Verified 09/05/20 14:14 NSAIDS (Non-Steroidal Allergy Mild HIVES Verified 09/05/20 14:14 Anti-Inflamma [NSAIDS (NON-STEROIDAL ANTI-INFLAMMA] aspirin [ASA] Allergy Unknown HIVES Verified 09/05/20 14:14 tramadol [TRAMADOL] Allergy Unknown UNKNOWN Verified 09/05/20 14:14 turkey Allergy Unknown UNKNOWN Verified 09/05/20 14:14 lidocaine Allergy Rash Verified 09/05/20 14:14 From Vicodin Allergy Mild RASH Uncoded 06/25/20 17:23 Review of Systems ENT: Reports Normal hearing present, Denies vertigo and Denies dizziness Neurologic: Reports as per HPI, Reports Normal hearing present, Denies Neuro- related abnormal movements, Denies Abnormal speech present, Denies confusion, Denies vertigo, Denies dizziness, Denies lack of coordination, Reports focal weakness and Denies paresthesias Psychiatric: Psychiatric: Denies confusion PMFSH Past Medical History Medical History Asthma section wound complication Diabetes Fall GERD (gastroesophageal reflux disease) History of seizure Hypertension Multiple sclerosis Multiple sclerosis exacerbation Surgical History History of left ankle joint replacement History of thoracic surgery Social History Social History Household Members: Family Housing: Other Alcohol intake: unknown Smoking Status: Smoker, status unknown Tobacco Type: Cigarette Packs Per Day: 1 Cigarettes Per Day: 20.0 Second Hand Smoke Exposure: Yes Use of substances other than those prescribed or required for medical reasons: Unknown Substance Use Type: Painkillers Advance Directives: No Advance Directives Information Provided: Yes service: No Current occupational status: unemployed Physical Exam Vital Signs: Vital Signs: Last Vital Signs Temp 96.9 F 09/06/20 07:35 Pulse 75 09/06/20 07:35 Resp 17 09/06/20 07:35 BP 95/52 L 09/06/20 07:35 Pulse Ox 98 09/06/20 07:35 Body Mass Index 31.5 Const: General: No confusion Orientation/consciousness: No confusion Neuro: General: No confusion Cranial nerves: Yes Normal hearing present Speech: No Abnormal speech present Course Course Course Narrative: patient was moving her all 4 extremities but when asked to lift her right arm psychogenic Lissett she was not lifting it all night she was using the nursing aides for help similar to that in the past when she comes to the ER because of home situation. Now she states she would like to go home will discharge her home no findings of stroke or flare-up of multiple sclerosis. 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 Patient ambulatory in the ER went of her own to the bathroom MDM - Neuro Symptoms/Deficit Lab Data Result diagrams: 09/05/20 15:13 09/05/20 15:13 Labs: Lab Results 09/05/20 09/05/20 09/05/20 Range/Units 14:18 15:13 15:13 WBC 6.0 (4.8-10.8) X10*3/uL RBC 3.84 L (4.20-5.50) X10*6/uL Hgb 10.3 L (12.0-16.0) g/dl Hct 32.9 L (37-47) % MCV 85.7 (80-98) fL MCH 26.8 L (27.0-33.0) pg MCHC 31.3 (31.0-35.0) g/dl RDW 16.1 H (11.0-16.0) % Plt Count 207 (160-400) X10*3/uL MPV 11.8 (9.4-12.3) fL Immature Gran % (Auto) 0.3 (0.0-0.4) % Neut % (Auto) 60.7 (45-73) % Lymph % (Auto) 31.7 (20-40) % [place] % (Auto) 6.3 (2-11) % Eos % (Auto) 0.8 (0-4) % Baso % (Auto) 0.2 (0-2) % Lymph # (Auto) 1.9 (1.2-4.9) X10*3/uL [place] # (Auto) 0.4 (0.1-1.2) X10*3/uL Eos # (Auto) 0.1 (0.0-0.4) X10*3/uL Baso # (Auto) 0.0 (0.0-0.2) X10*3/uL Abs Immat Gran (auto) 0.02 (0.00-0.03) X10*3/uL Absolute Neuts (auto) 3.6 (2.0-8.3) X10*3/uL Absolute Nucleated RBC 0.000 (0.0-0.012) X10*3/uL Nucleated RBC % (auto) 0.0 (0.0-0.2) /100WBC ESR 6 (0-20) MM/HR Sodium Potassium Chloride Carbon Dioxide Anion Gap BUN Creatinine Estim Creat Clear Calc Estimated GFR POC Glucose 121 H (60-115) mg/dL Random Glucose Calcium C-Reactive Protein 09/05/ Range/Units 15:13 WBC (4.8-10.8) X10*3/uL RBC (4.20-5.50) X10*6/uL Hgb (12.0-16.0) g/dl Hct (37-47) % MCV (80-98) fL MCH (27.0-33.0) pg MCHC (31.0-35.0) g/dl RDW (11.0-16.0) % Plt Count (160-400) X10*3/uL MPV (9.4-12.3) fL Immature Gran % (Auto) (0.0-0.4) % Neut % (Auto) (45-73) % Lymph % (Auto) (20-40) % [place] % (Auto) (2-11) % Eos % (Auto) (0-4) % Baso % (Auto) (0-2) % Lymph # (Auto) (1.2-4.9) X10*3/uL [place] # (Auto) (0.1-1.2) X10*3/uL Eos # (Auto) (0.0-0.4) X10*3/uL Baso # (Auto) (0.0-0.2) X10*3/uL Abs Immat Gran (auto) (0.00-0.03) X10*3/uL Absolute Neuts (auto) (2.0-8.3) X10*3/uL Absolute Nucleated RBC (0.0-0.012) X10*3/uL Nucleated RBC % (auto) (0.0-0.2) /100WBC ESR (0-20) MM/HR Sodium Cancelled Potassium Cancelled Chloride Cancelled Carbon Dioxide Cancelled Anion Gap Cancelled BUN Cancelled Creatinine Cancelled Estim Creat Clear Calc Cancelled Estimated GFR Cancelled POC Glucose (60-115) mg/dL Random Glucose Cancelled Calcium Cancelled C-Reactive Protein Cancelled Discharge Plan Discharge Clinical Impression: Somatization disorder, Weakness generalized, Multiple sclerosis Patient Disposition: Home, Self-Care Instructions: Weakness (ED) Additional Instructions: the cause of weakness and not very clear likely psychogenic. No evidence of stroke follow-up with primary care doctor Prescriptions: No Action oxycodone 5 mg capsule 5 mg PO Q8H PRN (Reason: pain) Qty: 15 RF: 0 atorvastatin 10 mg Tablet 10 mg PO BEDTIME RF: 0 amlodipine 2.5 mg Tablet 2.5 mg PO DAILY RF: 0 hydroxyzine HCl 50 mg Tablet 50 mg PO QID PRN (Reason: Anxiety) RF: 0 divalproex 500 mg Tablet,Delayed Release (Dr/Ec) 500 mg PO BID RF: 0 pantoprazole [Protonix] 40 mg Tablet,Delayed Release (Dr/Ec) 40 mg PO DAILY RF: 0 trazodone 300 mg Tablet 300 mg PO BEDTIME PRN (Reason: Sleep) RF: 0 albuterol sulfate [ProAir HFA] 90 mcg/actuation Hfa Aerosol Inhaler 2 puff INHALATION Q6H PRN (Reason: Shortness Of Breath) RF: 0 quetiapine [Seroquel XR] 200 mg Tablet Extended Release 24 Hr 200 mg PO DAILY RF: 0 acetaminophen 325 mg Tablet 650 mg PO Q6H PRN (Reason: Pain, Mild (Pain Scale 1-3)) Qty: 30 RF: 0
--- NOTE | 2020-09-06 08:00 | PC.NURSE ---
pt dressed and amb (i) gait steady the bedside of pt in bed 19h to look at that pt's phone and then amb (i) gait very steady to bathroom and back to bed.
--- NOTE | 2020-09-06 08:33 | PC.NURSE ---
pt requested/given saltines and diet sanna jessica. amb (i) gait very steady in [address] multi times. pt is sitting up at the edge of the edge speaking to anyone that passes in the hallway.
--- NOTE | 2020-09-06 08:54 | MHC.CM.ED ---
CM met with patient and instructed her that [facility] is able to offer a bed pending PT eval. Also instructed PT is not available today and would have to wait for PT eval tomorrow. Patient is refusing to stay and wants to go home. Nurse in ER made aware, patient will go home no services needed.
== END 2020-09-06 09:19 | disposition home or self-care (01) ==
PROVIDERS: Emergency Provider Internal Medicine
DX: F45.0 Somatization disorder (principal); G35 Multiple sclerosis; R53.1 Weakness; F17.210 Nicotine dependence, cigarettes, uncomplicated; Z71.6 Tobacco abuse counseling; Z79.899 Other long term (current) drug therapy
CPT/HCPCS: 36415; 70450; 82947; 85025; 85652; 93005; 99285

== ENCOUNTER 2020-09-12 12:18 | Emergency (ER) | payer OTHER, SELFPAY ==
--- NOTE | 2020-09-12 12:30 | PC.NURSE ---
PT TRIAGED C/O MUSCLE SPASMS IN NECK AND LEGS, WHICH REPORTEDLY CAUSED A FALL THIS MORNING WITNESSED BY HER .REPORTS BEING UNCONSCIOUS FOR 4-5 MINUTES. NEUROS +. SPEAKING IN CLEAR FULL SENTENCES, RESP EVEN AND NONLABOURED. HX MS.
[2020-09-12 12:31] VITALS: BP 120/70; PULSE 77; RESP 18; TEMP 36.7; O2SAT 97; BMI 26.4
--- NOTE | 2020-09-12 12:58 | ED_ITS ---
HPI - Fall General Chief Complaint: Fall Stated Complaint: INCREASED SPASMS, H/O MS Time Seen by Provider: 09/12/20 12:58 History of Present Illness HPI Narrative: patient with MS and long history of frequent falls due to leg spasm fell today and hit her head and believes she was unconscious for 2-3 minutes, complains of mild headache, chronic pain in her right thigh, some mild pain in her neck, at this point she has no nausea no vomiting no confusion no dizziness Related Data Home Medications Medication Instructions Recorded Confirmed albuterol sulfate [ProAir HFA] 2 puff INHALATION Q6H PRN 08/21/20 09/05/20 amlodipine 2.5 mg PO DAILY 08/21/20 09/05/20 atorvastatin 10 mg PO BEDTIME 08/21/20 09/05/20 divalproex 500 mg PO BID 08/21/20 09/05/20 hydroxyzine HCl 50 mg PO QID PRN 08/21/20 09/05/20 pantoprazole [Protonix] 40 mg PO DAILY 08/21/20 09/05/20 quetiapine [Seroquel XR] 200 mg PO DAILY 08/21/20 09/05/20 trazodone 300 mg PO BEDTIME PRN 08/21/20 09/05/20 Previous Rx's Medication Instructions Recorded acetaminophen 650 mg PO Q6H PRN #30 tab 08/24/20 oxycodone 5 mg PO Q8H PRN #15 cap 08/31/20 oxycodone 5 mg PO Q8H PRN #10 cap 09/12/20 Allergies Allergy/AdvReac Type Severity Reaction Status Date / Time Iodinated Contrast Media Allergy Severe ANAPHYLAXIS Verified 09/12/20 12:37 [CONTRAST, IV] ibuprofen [From Motrin] Allergy Intermediate SWELLING Verified 09/12/20 12:37 morphine [MORPHINE] Allergy Intermediate RASH Verified 09/12/20 12:37 acetaminophen [From TYLENOL] Allergy Mild HIVES Verified 09/12/20 12:37 bee pollen [Bee Stings] Allergy Mild UNKNOWN Verified 09/12/20 12:37 coconut Allergy Mild HIVES/SWELL Verified 09/12/20 12:37 ING latex [Latex] Allergy Mild HIVES Verified 09/12/20 12:37 NSAIDS (Non-Steroidal Allergy Mild HIVES Verified 12/05/20 12:37 Anti-Inflamma [NSAIDS (NON-STEROIDAL ANTI-INFLAMMA] aspirin [ASA] Allergy Unknown HIVES Verified 09/12/20 12:37 tramadol [TRAMADOL] Allergy Unknown UNKNOWN Verified 09/12/20 12:37 turkey Allergy Unknown UNKNOWN Verified 09/12/20 12:37 lidocaine Allergy Rash Verified 09/12/20 12:37 From Vicodin Allergy Mild RASH Uncoded 09/12/20 12:37 Review of Systems Review of Systems: positive for headache, loc, right thigh pain No chest pain no dizziness no shortness of breath no fever no chills no confusion, no new weakness or numbness, no urinary symptoms no abdominal pain no nausea no vomiting no diarrhea Yes all other systems are reviewed and are negative [facility] Past Medical History [facility] Narrative: patient with MS and chronic pain in right thigh as well as chronic muscle spasm and frequent falls Source: nursing notes reviewed Medical History Asthma section wound complication Diabetes Fall GERD (gastroesophageal reflux disease) History of seizure Hypertension Multiple sclerosis Multiple sclerosis exacerbation Surgical History History of left ankle joint replacement History of thoracic surgery Social History Social History Household Members: Family Housing: Other Alcohol intake: unknown Smoking Status: Smoker, status unknown Tobacco Type: Cigarette Packs Per Day: 1 Cigarettes Per Day: 20.0 Second Hand Smoke Exposure: Yes Substance Use Type: Painkillers Advance Directives: No Advance Directives Information Provided: No service: No Current occupational status: unemployed Physical Exam Vital Signs: Vital Signs: Last Vital Signs Temp 98.1 F 09/12/20 15:24 Pulse 88 09/12/20 15:24 Resp 14 09/12/20 15:24 BP 128/68 09/12/20 15:24 Pulse Ox 99 09/12/20 15:24 Body Mass Index 26.4 patient is comfortable relax cooperative no acute distress exam head is normocephalic atraumatic pupils equal round reactive to light extraocular motions intact there is no scalp hematoma, no hemotympanum, no raccoon eyes no Banda sign The neck had diffuse tenderness mild in the back of the neck including midline tenderness, no focal bony tenderness The chest is clear to auscultation bilaterally with no chest wall tenderness Abdomen soft nontender Extremities there is full range of motion in the joints with some pain in the right thigh with movement but no bony focal tenderness and full range of motion distal, no swelling no evidence of fracture The skin no lacerations Neuro patient interacts appropriately, A&O x3 Course Course Course Narrative: patient remains comfortable and interactive throughout ER visit, CT of head and neck were negative for acute injury and patient was discharged MDM - Fall Imaging Data CT scan - head: Radiologist's impression: HEAD: There is no evidence of acute intracranial hemorrhage or territorial infarction. No abnormal mass effect or midline shift is appreciated. Carlton-white differentiation is well preserved. No extra-axial fluid collections. The ventricular system and cortical sulci remain mildly prominent. The osseous structures and soft tissues are normal. The visualized paranasal sinuses and mastoid air cells are well aerated. SPINE: The cervical spine is visualized in its entirety. Alignment is within normal limits. Normal C1/C2 articulation. Vertebral body heights are well-maintained. Moderately decreased C3/C4 disc space height is again noted with associated endplate osteophytes. Visualized lung apices are well aerated. CT/CT head/brain wo con IMPRESSION: 1. No acute intracranial pathology. Similar volume loss. 2. No fractures or dislocations of the cervical spine. Discharge Plan Discharge Clinical Impression: Concussion Qualifiers: Encounter type: initial encounter Loss of consciousness presence/duration: without LOC Qualified Code(s): S06.0X0A - Concussion without loss of consciousness, initial encounter Patient Disposition: Home, Self-Care Additional Instructions: CT scans of head and neck did not show any dangerous injury Follow with primary care doctor Return any concerns Prescriptions: New oxycodone 5 mg capsule 5 mg PO Q8H PRN (Reason: pain) Qty: 10 RF: 0 No Action oxycodone 5 mg capsule 5 mg PO Q8H PRN (Reason: pain) Qty: 15 RF: 0 atorvastatin 10 mg Tablet 10 mg PO BEDTIME RF: 0 amlodipine 2.5 mg Tablet 2.5 mg PO DAILY RF: 0 hydroxyzine HCl 50 mg Tablet 50 mg PO QID PRN (Reason: Anxiety) RF: 0 divalproex 500 mg Tablet,Delayed Release (Dr/Ec) 500 mg PO BID RF: 0 pantoprazole [Protonix] 40 mg Tablet,Delayed Release (Dr/Ec) 40 mg PO DAILY RF: 0 trazodone 300 mg Tablet 300 mg PO BEDTIME PRN (Reason: Sleep) RF: 0 albuterol sulfate [ProAir HFA] 90 mcg/actuation Hfa Aerosol Inhaler 2 puff INHALATION Q6H PRN (Reason: Shortness Of Breath) RF: 0 quetiapine [Seroquel XR] 200 mg Tablet Extended Release 24 Hr 200 mg PO DAILY RF: 0 acetaminophen 325 mg Tablet 650 mg PO Q6H PRN (Reason: Pain, Mild (Pain Scale 1-3)) Qty: 30 RF: 0
--- NOTE | 2020-09-12 13:26 | CT_ITS ---
EXAM: Noncontrast CT scan of the head and cervical spine. INDICATION: Fall. Loss of consciousness. Rule out bleed. COMPARISON: Head CTs 09/05/[address] cervical spine 07/25/2019 TECHNIQUE: Axial slices were obtained from skull base to vertex and displayed. This was followed by helical, multislice, multidetector axial images from the occiput to the upper thorax. Coronal and sagittal reformats of the cervical spine in addition to coronal reformats of the head were obtained at the technologist workstation. DLP: 1136 mGy-cm FINDINGS: HEAD: There is no evidence of acute intracranial hemorrhage or territorial infarction. No abnormal mass effect or midline shift is appreciated. Carlton-white differentiation is well preserved. No extra-axial fluid collections. The ventricular system and cortical sulci remain mildly prominent. The osseous structures and soft tissues are normal. The visualized paranasal sinuses and mastoid air cells are well aerated. SPINE: The cervical spine is visualized in its entirety. Alignment is within normal limits. Normal C1/C2 articulation. Vertebral body heights are well-maintained. Moderately decreased C3/C4 disc space height is again noted with associated endplate osteophytes. Visualized lung apices are well aerated. CT/CT cervical spine wo con IMPRESSION: 1. No acute intracranial pathology. Similar volume loss. 2. No fractures or dislocations of the cervical spine. This CT examination was performed using dose optimization techniques as appropriate, variously including the following: *Automated exposure control *Adjustment of mA and/or kV according to patient size (this includes techniques or standardized protocols for targeted exams where dose is matched to indication/reason for exam; i.e. extremities or head) *Use of iterative reconstruction technique
--- NOTE | 2020-09-12 13:59 | PC.NURSE ---
PT RETURNED FROM CT
[2020-09-12 14:00] VITALS: BP 122/66; PULSE 81; RESP 16; TEMP 36.7; O2SAT 99
[2020-09-12] MEDS: oxyCODONE HCl Immed Release 5 MG TABLET PO (14:15)
[2020-09-12 15:24] VITALS: BP 128/68; PULSE 88; RESP 14; TEMP 36.7; O2SAT 99
[2020-09-12] MEDS: HYDROmorphone HCl 0.5 MG/0.5 ML SYRINGE 0.25 MG IM (15:48)
== END 2020-09-12 19:53 | disposition home or self-care (01) ==
PROVIDERS: Emergency Provider Emergency Medicine Emergency Medical Services
DX: S06.0X0A Concussion without loss of consciousness, initial encounter (principal); W01.0XXA Fall on same level from slipping, tripping and stumbling without subsequent striking against object, initial encounter; Z91.81 History of falling; E11.9 Type 2 diabetes mellitus without complications; I10 Essential (primary) hypertension; G35 Multiple sclerosis; F17.210 Nicotine dependence, cigarettes, uncomplicated; Y93.01 Activity, walking, marching and hiking; Y92.019 Unspecified place in single-family (private) house as the place of occurrence of the external cause; Y99.9 Unspecified external cause status
CPT/HCPCS: 70450; 72125; 96372; 99283; 99284; J1170

== ENCOUNTER 2020-10-06 14:46 | Emergency (ER) | payer OTHER, SELFPAY | END 2020-10-06 18:40 | disposition left against medical advice (07) | LOC: HO.ED 18:38 | PROVIDERS: Emergency Provider Emergency Medicine | DX: M79.10 Myalgia, unspecified site (principal) ==

== ENCOUNTER 2020-10-11 15:07 | Emergency (ER) | payer OTHER, SELFPAY ==
[2020-10-11 17:55] VITALS: BP 113/82; PULSE 86; RESP 16; TEMP 36.6; O2SAT 100; BMI 28.1
--- NOTE | 2020-10-11 18:05 | XR_ITS ---
EXAMINATION: XR CHEST CLINICAL INFORMATION: Chills, cough. COMPARISON: Chest radiograph dated 08/21/2020. TECHNIQUE: Frontal view of the chest was obtained. FINDINGS: The lungs are clear. The cardiomediastinal silhouette is normal in size. There is no pleural effusion or pneumothorax. No acute osseous abnormality. XR/XR chest 1V IMPRESSION: No acute cardiopulmonary findings.
--- NOTE | 2020-10-11 18:06 | CT_ITS ---
EXAMINATION: CT HEAD WITHOUT CONTRAST CLINICAL INFORMATION: Fall. Headache. COMPARISON: 09/12/2020 TECHNIQUE: Contiguous axial imaging was performed from the skull base to vertex without intravenous administration of contrast. This CT examination was performed using dose optimization techniques as appropriate, variously including the following: *Automated exposure control *Adjustment of mA and/or kV according to patient size (this includes techniques or standardized protocols for targeted exams where dose is matched to indication/reason for exam; i.e. extremities or head) *Use of iterative reconstruction technique DLP: 719 mGy-cm FINDINGS: There is no evidence of acute intracranial hemorrhage or territorial infarction. No abnormal mass effect or midline shift is seen. Carlton to white matter differentiation is well preserved. No extra-axial fluid collections are identified. The ventricles are normal in size. Patchy subcortical and periventricular white matter low-attenuation changes are stable from prior. The osseous structures and soft tissues are normal. The mastoid air cells and visualized portions of the paranasal sinuses are well aerated. CT/CT head/brain wo con IMPRESSION: No acute intracranial pathology. Mild chronic white matter small vessel ischemic changes.
[2020-10-11 18:46] LABS: MANUAL DIFF FLAG NO
[2020-10-11 18:48] LABS: Basophils Absolute Auto 0.1 X10*3/uL (0.0-0.2); Basophils Percent Auto 1.2 % (0-2); Eosinophils Percent Auto 0.8 % (0-4); Hematocrit 36.4 % (37-47); Hemoglobin 11.6 g/dl (12.0-16.0); Imm Gran Abs Auto 0.01 X10*3/uL (0.00-0.03); Imm Gran Pct Auto 0.2 % (0.0-0.4); Lymphocytes Percent Auto 58.9 % (20-40); Mean Corpuscular HGB Conc 31.9 g/dl (31.0-35.0); Mean Corpuscular Hemoglobin 27.2 pg (27.0-33.0); Mean Corpuscular Volume 85.2 fL (80-98); Mean Platelet Volume 12.2 fL (9.4-12.3); Monocytes Absolute Auto 0.3 X10*3/uL (0.1-1.2); Neutrophils Absolute Auto 1.7 X10*3/uL (2.0-8.3); Neutrophils Percent Auto 32.9 % (45-73); Platelet Count 239 X10*3/uL (160-400); Red Blood Count 4.27 X10*6/uL (4.20-5.50); Red Cell Distribution Width 15.7 % (11.0-16.0); White Blood Count 5.1 X10*3/uL (4.8-10.8)
--- NOTE | 2020-10-11 19:00 | PC.NURSE ---
PT GIVEN TUNA SANDWICH 2 GINGERALE AND MULTIPLE PACK OF GRAM CRACKER. PT CALLED FROM [facility] WHERE THEY ARE STAYING AND SPOKE WITH HER.
[2020-10-11 19:15] LABS: Alanine Aminotransferase 9 U/L (0-31); Albumin Level 4.1 g/dL (3.5-5.0); Alkaline Phosphatase 62 U/L (39-117); Anion Gap 11 (12-20); Aspartate Amino Transferase 10 U/L (5-31); Bilirubin Total 0.3 mg/dL (0.0-1.0); Blood Urea Nitrogen 10 mg/dL (9-16); Calcium 8.8 mg/dL (8.4-10.2); Carbon Dioxide 26 mmol/L (22-29); Chloride 108 mmol/L (96-108); Creatinine Clr Calc Pharmacy 111.6; Estimated Glomerular Filt Rate > 60; Glucose Random 82 mg/dL (60-115); Potassium 4.1 mmol/l (3.3-5.1); Sodium 141 mmol/L (135-145); Total Protein 6.8 g/dL (6.5-8.0)
[2020-10-11 19:27] LABS: Influenza A PCR NEGATIVE (Negative); Influenza B PCR NEGATIVE (Negative); Resp Syncy Virus RNA Qual PCR NEGATIVE (Negative); SARS COV2 PCR INHOUSE NEGATIVE (Negative)
[2020-10-11] MEDS: oxyCODONE HCl Immed Release 5 MG TABLET PO (19:36)
--- NOTE | 2020-10-11 20:09 | ED.GENADULT ---
HPI - General Adult General Chief complaint: General Medical Stated complaint: Pain Time Seen by Provider: 10/11/20 16:33 Source: EMS Mode of arrival: wheelchair Limitations: no limitations History of Present Illness HPI narrative: States he has had body aches/myalgias throughout the days having chills. Earlier today feet gave out and fell hit her head question LOC. States has slight headache as well. No chest pain or shortness of breath. No lower extremity or torso injury. Onset (ago): day(s) (1) Location: head Treatments prior to arrival: none Related Data Home Medications Medication Instructions Recorded Confirmed albuterol sulfate [ProAir HFA] 2 puff INHALATION Q6H PRN 08/21/20 09/05/20 amlodipine 2.5 mg PO DAILY 08/21/20 09/05/20 atorvastatin 10 mg PO BEDTIME 08/21/20 09/05/20 divalproex 500 mg PO BID 08/21/20 09/05/20 hydroxyzine HCl 50 mg PO QID PRN 08/21/20 09/05/20 pantoprazole [Protonix] 40 mg PO DAILY 08/21/20 09/05/20 quetiapine [Seroquel XR] 200 mg PO DAILY 08/21/20 09/05/20 trazodone 300 mg PO BEDTIME PRN 08/21/20 09/05/20 Previous Rx's Medication Instructions Recorded acetaminophen 650 mg PO Q6H PRN #30 tab 08/24/20 oxycodone 5 mg PO Q8H PRN #15 cap 08/31/20 oxycodone 5 mg PO Q8H PRN #10 cap 09/12/20 cyclobenzaprine 10 mg PO TID PRN #10 tab 10/11/20 Allergies Allergy/AdvReac Type Severity Reaction Status Date / Time Iodinated Contrast Media Allergy Severe ANAPHYLAXIS Verified 09/12/20 12:37 [CONTRAST, IV] ibuprofen [From Motrin] Allergy Intermediate SWELLING Verified 09/12/20 12:37 morphine [MORPHINE] Allergy Intermediate RASH Verified 09/12/20 12:37 acetaminophen [From TYLENOL] Allergy Mild HIVES Verified 09/12/20 12:37 bee pollen [Bee Stings] Allergy Mild UNKNOWN Verified 09/12/20 12:37 coconut Allergy Mild HIVES/SWELL Verified 09/12/20 12:37 ING latex [Latex] Allergy Mild HIVES Verified 09/12/20 12:37 NSAIDS (Non-Steroidal Allergy Mild HIVES Verified 09/12/20 12:37 Anti-Inflamma [NSAIDS (NON-STEROIDAL ANTI-INFLAMMA] aspirin [ASA] Allergy Unknown HIVES Verified 09/12/20 12:37 tramadol [TRAMADOL] Allergy Unknown UNKNOWN Verified 09/12/20 12:37 turkey Allergy Unknown UNKNOWN Verified 09/12/20 12:37 lidocaine Allergy Rash Verified 09/12/20 12:37 From Vicodin Allergy Mild RASH Uncoded 09/12/20 12:37 Review of Systems Review of Systems: Constitutional: No Weight loss, No Fever, + Chills, No Night Sweats, No Fatigue, No Malaise ENT/Mouth: No Hearing loss, No Ear Pain, No Nasal Congestion, No Sinus Pain, No Hoarseness, No sore throat, No Rhinorrhea, No Swallowing Difficulty Eyes: No Eye Pain, No Swelling, No Redness, No Foreign Body, No Discharge, No Vision Changes Cardiovascular: No Chest Pain, No SOB, No Dyspnea on Exertion, No Orthopnea, No Edema, No Palpitations Respiratory: No Cough, No Sputum, No Wheezing, No Dyspnea Gastrointestinal: No Nausea, No Vomiting, No Diarrhea, No Constipation, No abdominal Pain, No Hematochezia, No Melena Genitourinary: no irregular bleeding, No Dysuria, No Urinary Frequency, No Hematuria, No Urinary Incontinence, No Urgency, No Flank Pain, No Urinary Flow Changes, No Hesitancy Musculoskeletal: No joint pain, + Myalgias, No Joint Swelling Skin: No Skin Lesions, No rash Neuro: No Weakness, No Numbness, No Paresthesias, No Loss of Consciousness, No Dizziness, No Headache Psych: No Social Issues Heme/Lymph: No Bruising, No Bleeding,No Lymphadenopathy Endocrine: No Polyuria, No Polydipsia, No Temperature Intolerance Yes all other systems are reviewed and are negative [facility] Past Medical History Medical History Asthma section wound complication Diabetes Fall GERD (gastroesophageal reflux disease) History of seizure Hypertension Multiple sclerosis Multiple sclerosis exacerbation Surgical History History of left ankle joint replacement History of thoracic surgery Social History Social History Household Members: Family Housing: Other Alcohol intake: never Smoking Status: Current every day smoker Tobacco Type: Cigarette Packs Per Day: 1 Cigarettes Per Day: 20.0 Second Hand Smoke Exposure: Yes Use of substances other than those prescribed or required for medical reasons: No Substance Use Type: Painkillers Advance Directives: No Advance Directives Information Provided: Yes service: No Current occupational status: unemployed Physical Exam Vital Signs: Vital Signs: Last Vital Signs Temp 97.8 F 10/11/20 17:55 Pulse 86 10/11/20 17:55 Resp 16 10/11/20 17:55 BP 113/82 10/11/20 17:55 Pulse Ox 100 10/11/20 17:55 Body Mass Index 28.1 Reviewed Const: General: cooperative and healthy appearing; No acute distress or intoxicated appearing Nutritional Appearance: average body habitus Orientation/consciousness: patient oriented x3 HENMT: Head: Yes normal to inspection Ears: hearing grossly normal bilaterally Eyes: General: appearance normal, both eyes and all related structures Visual Hodges: normal visual hodges by confrontation Neck: Neck: Yes normal visual inspection, No positive Brudzinski's sign, No positive Kernig's sign and No tender Thyroid: Thyroid normal Chest: Chest palpation & inspection: normal inspection of the chest Resp: Effort & Inspection: normal respiratory effort Auscultation: clear to auscultation bilaterally Cardio: Jugular venous distension: no JVD Rhythm: regular rhythm Heart sounds: S1 normal heart sound present and S2 normal heart sound present GI: Inspection: Yes normal to inspection Percussion: Yes normal to percussion Auscultation: normal bowel sounds : General: Yes no CVA tenderness Back/Spine/Pelvis: Back: no CVA tenderness Skin: General skin exam: no rashes or lesions noted Neuro: General: patient oriented x3 Extrem: General: Yes normal to inspection Course Course Course Narrative: Exam atraumatic. Nonspecific myalgias and chills. Labs overall stable. Head CT negative. Rapid RSV/COVID/flu negative. Vague symptoms have requested narcotics by name history of substance abuse and requesting narcotics by name aware given her symptoms this is not appropriate. She be discharged with supportive care return follow-up instructions. Stable for discharge. Medical Decision Making Lab Data Result diagrams: 10/11/20 18:39 10/11/20 18:39 Labs: Lab Results 10/11/20 10/11/20 10/11/20 Range/Units 18:33 18:39 18:39 WBC 5.1 (4.8-10.8) X10*3/uL RBC 4.27 (4.20-5.50) X10*6/uL Hgb 11.6 L (12.0-16.0) g/dl Hct 36.4 L (37-47) % MCV 85.2 (80-98) fL MCH 27.2 (27.0-33.0) pg MCHC 31.9 (31.0-35.0) g/dl RDW 15.7 (11.0-16.0) % Plt Count 239 (160-400) X10*3/uL MPV 12.2 (9.4-12.3) fL Immature Gran % (Auto) 0.2 (0.0-0.4) % Neut % (Auto) 32.9 L (45-73) % Lymph % (Auto) 58.9 H (20-40) % [place] % (Auto) 6.0 (2-11) % Eos % (Auto) 0.8 (0-4) % Baso % (Auto) 1.2 (0-2) % Lymph # (Auto) 3.0 (1.2-4.9) X10*3/uL [place] # (Auto) 0.3 (0.1-1.2) X10*3/uL Eos # (Auto) 0.0 (0.0-0.4) X10*3/uL Baso # (Auto) 0.1 (0.0-0.2) X10*3/uL Abs Immat Gran (auto) 0.01 (0.00-0.03) X10*3/uL Absolute Neuts (auto) 1.7 L (2.0-8.3) X10*3/uL Absolute Nucleated RBC 0.000 (0.0-0.012) X10*3/uL Nucleated RBC % (auto) 0.0 (0.0-0.2) /100WBC Sodium 141 (135-145) mmol/L Potassium 4.1 (3.3-5.1) mmol/l Chloride 108 (96-108) mmol/L Carbon Dioxide 26 (22-29) mmol/L Anion Gap 11 L (12-20) BUN 10 (9-16) mg/dL Creatinine 0.77 (0.5-1.4) mg/dL Estim Creat Clear Calc 111.6 Estimated GFR > 60 Random Glucose 82 (60-115) mg/dL Calcium 8.8 (8.4-10.2) mg/dL Total Bilirubin 0.3 (0.0-1.0) mg/dL AST 10 D (5-31) U/L ALT 9 (0-31) U/L Alkaline Phosphatase 62 (39-117) U/L Total Protein 6.8 (6.5-8.0) g/dL Albumin 4.1 (3.5-5.0) g/dL Coronavirus (PCR) NEGATIVE (Negative) Influenza Type A (PCR) NEGATIVE (Negative) Influenza Type B (PCR) NEGATIVE (Negative) RSV RNA Qual (PCR) NEGATIVE (Negative) Discharge Plan Discharge Clinical Impression: Myalgia, Fall, Acute viral syndrome, Contusion of scalp Patient Disposition: Home, Self-Care Instructions: Viral Syndrome (ED), Scalp Contusion in Adults (ED), Fall Prevention (ED) Prescriptions: New cyclobenzaprine 10 mg tablet 10 mg PO TID PRN (Reason: muscle spasm) Qty: 10 RF: 0 No Action oxycodone 5 mg capsule 5 mg PO Q8H PRN (Reason: pain) Qty: 15 RF: 0 oxycodone 5 mg capsule 5 mg PO Q8H PRN (Reason: pain) Qty: 10 RF: 0 atorvastatin 10 mg Tablet 10 mg PO BEDTIME RF: 0 amlodipine 2.5 mg Tablet 2.5 mg PO DAILY RF: 0 hydroxyzine HCl 50 mg Tablet 50 mg PO QID PRN (Reason: Anxiety) RF: 0 divalproex 500 mg Tablet,Delayed Release (Dr/Ec) 500 mg PO BID RF: 0 pantoprazole [Protonix] 40 mg Tablet,Delayed Release (Dr/Ec) 40 mg PO DAILY RF: 0 trazodone 300 mg Tablet 300 mg PO BEDTIME PRN (Reason: Sleep) RF: 0 albuterol sulfate [ProAir HFA] 90 mcg/actuation Hfa Aerosol Inhaler 2 puff INHALATION Q6H PRN (Reason: Shortness Of Breath) RF: 0 quetiapine [Seroquel XR] 200 mg Tablet Extended Release 24 Hr 200 mg PO DAILY RF: 0 acetaminophen 325 mg Tablet 650 mg PO Q6H PRN (Reason: Pain, Mild (Pain Scale 1-3)) Qty: 30 RF: 0 Referrals: Physician,Unknown [Primary Care Provider] - 1 week (Your primary care doctor)
[2020-10-11] MEDS: Cyclobenzaprine HCl 5 MG TABLET PO (20:54)
[2020-10-11 20:57] VITALS: BP 135/68; PULSE 87; RESP 16; TEMP 37.1; O2SAT 100
--- NOTE | 2020-10-11 21:49 | PC.NURSE ---
[facility] CAME TO TRANSPORT PT TO HOME.
== END 2020-10-11 21:49 | disposition home or self-care (01) ==
PROVIDERS: Nurse Practitioner Primary Care; Emergency Provider Emergency Medicine
DX: M79.10 Myalgia, unspecified site (principal); S00.03XA Contusion of scalp, initial encounter; B34.9 Viral infection, unspecified; R51.9 Headache, unspecified; W01.0XXA Fall on same level from slipping, tripping and stumbling without subsequent striking against object, initial encounter; Y93.9 Activity, unspecified; Y92.9 Unspecified place or not applicable; Y99.9 Unspecified external cause status; Z20.828 Contact with and (suspected) exposure to other viral communicable diseases; Z79.899 Other long term (current) drug therapy; F17.210 Nicotine dependence, cigarettes, uncomplicated; Z71.6 Tobacco abuse counseling
CPT/HCPCS: 0241U; 36415; 70450; 71045; 80053; 85025; 99284

== ENCOUNTER 2020-10-12 16:45 | Emergency (ER) | payer OTHER, SELFPAY ==
--- NOTE | 2020-10-12 17:16 | PC.NURSE ---
NOT PRESENT WHEN CALLED FOR TRIAGE
--- NOTE | 2020-10-12 17:50 | PC.NURSE ---
PT NOT IN WAITING ROOM WHEN CALLED 2ND TIME
== END 2020-10-12 17:30 | disposition left against medical advice (07) ==
PROVIDERS: Emergency Provider Emergency Medicine
DX: R55 Syncope and collapse (principal)

== ENCOUNTER 2020-11-02 09:21 | Emergency (ER) | payer OTHER, SELFPAY ==
[2020-11-02 09:46] VITALS: BP 126/89; BP 142/106; PULSE 100; PULSE 102; RESP 20; TEMP 36.8; O2SAT 99; BMI 25.2
--- NOTE | 2020-11-02 09:47 | ECG_ITS ---
Test Reason : CP Blood Pressure : / mmHG Vent. Rate : 094 BPM Atrial Rate : 094 BPM P-R Int : 142 ms QRS Dur : 078 ms QT Int : 366 ms P-R-T Axes : 064 -12 035 degrees QTc Int : 457 ms Normal sinus rhythm Inferior infarct , age undetermined Abnormal ECG When compared with ECG of 05-SEP-2020 15:15, Inferior infarct is now Present Nonspecific T wave abnormality, improved in Lateral leads Referred By: Ny Reeves Electronically Signed By:Ted Weiner
--- NOTE | 2020-11-02 09:47 | XR_ITS ---
EXAMINATION: XR CHEST CLINICAL INFORMATION: Chest pain. COMPARISON: None TECHNIQUE: Frontal view of the chest was obtained. FINDINGS: The lungs are well-expanded and clear of acute process. Heart size and pulmonary vascularity is normal. There is mild dextroscoliosis dorsal spine. No lytic process. XR/XR chest 1V IMPRESSION: Unremarkable chest exam. Mild dextroscoliosis dorsal spine.
--- NOTE | 2020-11-02 09:54 | ED.URI ---
HPI - URI/Sore Throat General Chief Complaint: Upper Respiratory Symptoms Stated Complaint: headache and sinus pain x 1 week Time Seen by Provider: 11/02/20 09:33 Source: patient Mode of arrival: ambulatory History of Present Illness HPI Narrative: 45-year-old Female with a past medical history of MS, seizures, PTSD, personality disorder, asthma, bipolar presenting to the ED complaining of sinus pressure/pain x1 week with associated headache, chills, fatigue/myalgias, dry cough, chest pain, and shortness of breath. Denies fever, abdominal pain, nausea/vomiting, LE edema, recent travel, sick contacts MD elicited complaint: fever and cough Related Data Home Medications Medication Instructions Recorded Confirmed albuterol sulfate [ProAir HFA] 2 puff INHALATION Q6H PRN 08/21/20 09/05/20 amlodipine 2.5 mg PO DAILY 08/21/20 09/05/20 atorvastatin 10 mg PO BEDTIME 08/21/20 09/05/20 divalproex 500 mg PO BID 08/21/20 09/05/20 hydroxyzine HCl 50 mg PO QID PRN 08/21/20 09/05/20 pantoprazole [Protonix] 40 mg PO DAILY 08/21/20 09/05/20 quetiapine [Seroquel XR] 200 mg PO DAILY 08/21/20 09/05/20 trazodone 300 mg PO BEDTIME PRN 08/21/20 09/05/20 Previous Rx's Medication Instructions Recorded acetaminophen 650 mg PO Q6H PRN #30 tab 08/24/20 oxycodone 5 mg PO Q8H PRN #15 cap 08/31/20 oxycodone 5 mg PO Q8H PRN #10 cap 09/12/20 cyclobenzaprine 10 mg PO TID PRN #10 tab 10/11/20 amoxicillin-pot clavulanate 1 tab PO Q12H 7 Days #14 tab 11/02/20 [Augmentin] fluticasone propionate [Flonase 2 spray INTRANASAL DAILY #16 g 11/02/20 Allergy Relief] Allergies Allergy/AdvReac Type Severity Reaction Status Date / Time Iodinated Contrast Media Allergy Severe ANAPHYLAXIS Verified 09/12/20 12:37 [CONTRAST, IV] ibuprofen [From Motrin] Allergy Intermediate SWELLING Verified 09/12/20 12:37 morphine [MORPHINE] Allergy Intermediate RASH Verified 09/12/20 12:37 acetaminophen [From TYLENOL] Allergy Mild HIVES Verified 09/12/20 12:37 bee pollen [Bee Stings] Allergy Mild UNKNOWN Verified 09/12/20 12:37 coconut Allergy Mild HIVES/SWELL Verified 09/12/20 12:37 ING latex [Latex] Allergy Mild HIVES Verified 09/12/20 12:37 NSAIDS (Non-Steroidal Allergy Mild HIVES Verified 09/12/20 12:37 Anti-Inflamma [NSAIDS (NON-STEROIDAL ANTI-INFLAMMA] aspirin [ASA] Allergy Unknown HIVES Verified 09/12/20 12:37 tramadol [TRAMADOL] Allergy Unknown UNKNOWN Verified 09/12/20 12:37 turkey Allergy Unknown UNKNOWN Verified 09/12/20 12:37 lidocaine Allergy Rash Verified 09/12/20 12:37 From Vicodin Allergy Mild RASH Uncoded 09/12/20 12:37 Review of Systems Review of Systems: Constitutional: No Weight loss, No Fever, No Chills ENT/Mouth: No Ear Pain, No Nasal Congestion, + Sinus Pain, No Hoarseness, No sore throat, + Rhinorrhea, No Swallowing Difficulty Eyes: No Eye Pain, No Swelling, No Redness, No Foreign Body, No Discharge, No Vision Changes Cardiovascular: + Chest Pain, + SOB, + Dyspnea on Exertion, No Orthopnea, No Edema Respiratory: +Cough, No Sputum, No Wheezing Gastrointestinal: No Nausea, No Vomiting, No Diarrhea, No Constipation, No Abdominal pain Genitourinary: No Dysuria, No Urinary Frequency, No Hematuria Musculoskeletal: No joint pain, No Myalgias, No Joint Swelling Skin: No Skin Lesions, No rash Neuro: No Dizziness,+ Headache Yes all other systems are reviewed and are negative [facility] Past Medical History Attestation statement: The following information was validated with the patient. Medical History Asthma section wound complication Diabetes Fall GERD (gastroesophageal reflux disease) History of seizure Hypertension Multiple sclerosis Multiple sclerosis exacerbation Surgical History History of left ankle joint replacement History of thoracic surgery Social History Social History Household Members: Family Housing: Other Alcohol intake: never Smoking Status: Never smoker Tobacco Type: Cigarette Packs Per Day: 1 Cigarettes Per Day: 20.0 Second Hand Smoke Exposure: Yes Use of substances other than those prescribed or required for medical reasons: Yes Substance Use Type: Crack/Cocaine Substance Use Frequency: Occasionally Last Used Substance: Weeks (ago) Advance Directives: No Advance Directives Information Provided: Yes service: No Current occupational status: unemployed Physical Exam Vital Signs: Vital Signs: Last Vital Signs Temp 98.9 F 11/02/20 11:54 Pulse 94 11/02/20 11:54 Resp 18 11/02/20 11:54 BP 119/94 H 11/02/20 11:54 Pulse Ox 99 11/02/20 11:54 Body Mass Index 25.2 Const: General: cooperative, healthy appearing, comfortable, no acute distress, well developed and alert Orientation/consciousness: patient oriented x3 Limitations: no limitations HENMT: Head: Yes normal to inspection Ears: hearing grossly normal bilaterally and TM's normal bilaterally General nose exam: Normal external nose present and Normal nares present Face and sinus: Yes sinus tenderness Mouth: Normal oral and palatal mucosa present Throat: Yes posterior oropharynx normal, Yes tonsils normal, Yes uvula midline, No peritonsillar mass and No uvular edema Eyes: General: appearance normal, both eyes and all related structures EOM: EOMs intact bilaterally Neck: Neck: Yes normal visual inspection, Yes no lymphadenopathy and Yes no meningeal signs Resp: Effort & Inspection: normal respiratory effort Auscultation: clear to auscultation bilaterally, no rales, no rhonchi and no wheezes Cardio: Rate: regular rate Heart sounds: S1 normal heart sound present and S2 normal heart sound present GI: Inspection: Yes normal to inspection Palpation (GI): Soft to palpation, nontender, no guarding and not rigid Skin: Rashes: no rashes Wounds: no wounds Neuro: General: patient oriented x3, tone normal and no meningeal signs Extrem: Other: No LE edema General: Yes normal to inspection Course Course Course Narrative: Labs unremarkable, troponin negative, COVID-19/influenza/RSV negative. Chest x-ray unremarkable Patient given 1st dose of Augmentin in the ED MDM - URI/Sore Throat MDM Narrative Medical decision making narrative: 45-year-old Female with a past medical history of MS, seizures, PTSD, personality disorder, asthma, bipolar presenting to the ED complaining of sinus pressure/pain x1 week with associated headache, chills, fatigue/myalgias, dry cough, chest pain, and shortness of breath. On exam VSS, NAD/well-appearing, lungs CTA, abdomen soft/nontender, no LE edema. Concern for viral syndrome/COVID-19 vs sinusitis vs atypical ACS. Lower concern for pneumonia/bacterial infection or PE Plan: EKG, labs, CXR, COVID-19 testing, re-evaluate Medical Records Attestation: I reviewed the patient's medical records. Lab Data Attestation: I reviewed the patient's lab results. Result diagrams: 11/02/20 10:11/02/20 10: Labs: Lab Results 11/02/20 11/02/20 11/02/20 Range/Units 10:01 10: 10:01 WBC 5.5 (4.8-10.8) X10*3/uL RBC 4.48 (4.20-5.50) X10*6/uL Hgb 12.1 (12.0-16.0) g/dl Hct 37.6 (37-47) % MCV 83.9 (80-98) fL MCH 27.0 (27.0-33.0) pg MCHC 32.2 (31.0-35.0) g/dl RDW 15.3 (11.0-16.0) % Plt Count 234 (160-400) X10*3/uL MPV 10.2 (9.4-12.3) fL Immature Gran % (Auto) 0.2 (0.0-0.4) % Neut % (Auto) 50.9 (45-73) % Lymph % (Auto) 40.1 H (20-40) % [place] % (Auto) 7.0 (2-11) % Eos % (Auto) 0.9 (0-4) % Baso % (Auto) 0.9 (0-2) % Lymph # (Auto) 2.2 (1.2-4.9) X10*3/uL [place] # (Auto) 0.4 (0.1-1.2) X10*3/uL Eos # (Auto) 0.1 (0.0-0.4) X10*3/uL Baso # (Auto) 0.1 (0.0-0.2) X10*3/uL Abs Immat Gran (auto) 0.01 (0.00-0.03) X10*3/uL Absolute Neuts (auto) 2.8 (2.0-8.3) X10*3/uL Absolute Nucleated RBC 0.000 (0.0-0.012) X10*3/uL Nucleated RBC % (auto) 0.0 (0.0-0.2) /100WBC Sodium 139 (135-145) mmol/L Potassium 4.2 (3.3-5.1) mmol/l Chloride 107 (96-108) mmol/L Carbon Dioxide 23 (22-29) mmol/L Anion Gap 13 (12-20) BUN 10 (9-16) mg/dL Creatinine 0.81 (0.5-1.4) mg/dL Estim Creat Clear Calc 94.8 Estimated GFR > 60 Random Glucose 92 (60-115) mg/dL Calcium 9.0 (8.4-10.2) mg/dL Magnesium 1.9 (1.6-2.6) mg/dL Total Bilirubin 0.3 (0.0-1.0) mg/dL Direct Bilirubin 0.2 (0.0-0.5) mg/dL AST 11 (5-31) U/L ALT 8 (0-31) U/L Alkaline Phosphatase 66 (39-117) U/L Troponin I High Sens < 3.5 (<3.5-17.0) ng/L Total Protein 6.8 (6.5-8.0) g/dL Albumin 4.0 (3.5-5.0) g/dL Urine Test (NEGATIVE) Coronavirus (PCR) (Negative) Influenza Type A (PCR) (Negative) Influenza Type B (PCR) (Negative) RSV RNA Qual (PCR) (Negative) 11/02/20 11/02/20 Range/Units 10:01 11:26 WBC (4.8-10.8) X10*3/uL RBC (4.20-5.50) X10*6/uL Hgb (12.0-16.0) g/dl Hct (37-47) % MCV (80-98) fL MCH (27.0-33.0) pg MCHC (31.0-35.0) g/dl RDW (11.0-16.0) % Plt Count (160-400) X10*3/uL MPV (9.4-12.3) fL Immature Gran % (Auto) (0.0-0.4) % Neut % (Auto) (45-73) % Lymph % (Auto) (20-40) % [place] % (Auto) (2-11) % Eos % (Auto) (0-4) % Baso % (Auto) (0-2) % Lymph # (Auto) (1.2-4.9) X10*3/uL [place] # (Auto) (0.1-1.2) X10*3/uL Eos # (Auto) (0.0-0.4) X10*3/uL Baso # (Auto) (0.0-0.2) X10*3/uL Abs Immat Gran (auto) (0.00-0.03) X10*3/uL Absolute Neuts (auto) (2.0-8.3) X10*3/uL Absolute Nucleated RBC (0.0-0.012) X10*3/uL Nucleated RBC % (auto) (0.0-0.2) /100WBC Sodium (135-145) mmol/L Potassium (3.3-5.1) mmol/l Chloride (96-108) mmol/L Carbon Dioxide (22-29) mmol/L Anion Gap (12-20) BUN (9-16) mg/dL Creatinine (0.5-1.4) mg/dL Estim Creat Clear Calc Estimated GFR Random Glucose (60-115) mg/dL Calcium (8.4-10.2) mg/dL Magnesium (1.6-2.6) mg/dL Total Bilirubin (0.0-1.0) mg/dL Direct Bilirubin (0.0-0.5) mg/dL AST (5-31) U/L ALT (0-31) U/L Alkaline Phosphatase (39-117) U/L Troponin I High Sens (<3.5-17.0) ng/L Total Protein (6.5-8.0) g/dL Albumin (3.5-5.0) g/dL Urine Test NEGATIVE (NEGATIVE) Coronavirus (PCR) NEGATIVE (Negative) Influenza Type A (PCR) NEGATIVE (Negative) Influenza Type B (PCR) NEGATIVE (Negative) RSV RNA Qual (PCR) NEGATIVE (Negative) ECG Data Attestation: I personally reviewed and interpreted this ECG as follows: ECG interpretation date: 11/02/20 ECG interpretation time: 09:53 Interpretation: EKG a normal sinus rhythm. Rate of 93. No ischemic changes. No STEMI. Discharge Plan Discharge Clinical Impression: Sinusitis Qualifiers: Sinusitis location: unspecified location Chronicity: acute Recurrence: not specified as recurrent Qualified Code(s): J01.90 - Acute sinusitis, unspecified Patient Disposition: Home, Self-Care Instructions: Sinusitis (ED) Additional Instructions: Your blood work was reassuring today in the ED. Your chest x-ray was unremarkable. You have a sinus infection. Augmentin as an antibiotic, take as prescribed. In addition Flonase will help drain out her sinuses. If her symptoms persist or worsen, have high fevers, constant or worsening chest pain, or shortness of breath return to the ED Prescriptions: New amoxicillin-pot clavulanate [Augmentin] 875-125 mg tablet 1 tab PO Q12H 7 Days Qty: 14 RF: 0 fluticasone propionate [Flonase Allergy Relief] 50 mcg/actuation spray,suspension 2 spray intranasal DAILY Qty: 16 RF: 0 No Action oxycodone 5 mg capsule 5 mg PO Q8H PRN (Reason: pain) Qty: 15 RF: 0 oxycodone 5 mg capsule 5 mg PO Q8H PRN (Reason: pain) Qty: 10 RF: 0 atorvastatin 10 mg Tablet 10 mg PO BEDTIME RF: 0 amlodipine 2.5 mg Tablet 2.5 mg PO DAILY RF: 0 hydroxyzine HCl 50 mg Tablet 50 mg PO QID PRN (Reason: Anxiety) RF: 0 divalproex 500 mg Tablet,Delayed Release (Dr/Ec) 500 mg PO BID RF: 0 pantoprazole [Protonix] 40 mg Tablet,Delayed Release (Dr/Ec) 40 mg PO DAILY RF: 0 trazodone 300 mg Tablet 300 mg PO BEDTIME PRN (Reason: Sleep) RF: 0 albuterol sulfate [ProAir HFA] 90 mcg/actuation Hfa Aerosol Inhaler 2 puff INHALATION Q6H PRN (Reason: Shortness Of Breath) RF: 0 quetiapine [Seroquel XR] 200 mg Tablet Extended Release 24 Hr 200 mg PO DAILY RF: 0 acetaminophen 325 mg Tablet 650 mg PO Q6H PRN (Reason: Pain, Mild (Pain Scale 1-3)) Qty: 30 RF: 0 cyclobenzaprine 10 mg tablet 10 mg PO TID PRN (Reason: muscle spasm) Qty: 10 RF: 0 Referrals: Physician,Unknown [Primary Care Provider] - 2 days
[2020-11-02 10:05] LABS: MANUAL DIFF FLAG NO
[2020-11-02 10:07] LABS: Basophils Absolute Auto 0.1 X10*3/uL (0.0-0.2); Basophils Percent Auto 0.9 % (0-2); Eosinophils Absolute Auto 0.1 X10*3/uL (0.0-0.4); Eosinophils Percent Auto 0.9 % (0-4); Hematocrit 37.6 % (37-47); Hemoglobin 12.1 g/dl (12.0-16.0); Imm Gran Abs Auto 0.01 X10*3/uL (0.00-0.03); Imm Gran Pct Auto 0.2 % (0.0-0.4); Lymphocytes Absolute Auto 2.2 X10*3/uL (1.2-4.9); Lymphocytes Percent Auto 40.1 % (20-40); Mean Corpuscular HGB Conc 32.2 g/dl (31.0-35.0); Mean Corpuscular Volume 83.9 fL (80-98); Mean Platelet Volume 10.2 fL (9.4-12.3); Monocytes Absolute Auto 0.4 X10*3/uL (0.1-1.2); Neutrophils Absolute Auto 2.8 X10*3/uL (2.0-8.3); Neutrophils Percent Auto 50.9 % (45-73); Platelet Count 234 X10*3/uL (160-400); Red Blood Count 4.48 X10*6/uL (4.20-5.50); Red Cell Distribution Width 15.3 % (11.0-16.0); White Blood Count 5.5 X10*3/uL (4.8-10.8)
[2020-11-02 10:38] LABS: Troponin-I High Sensitivity < 3.5 ng/L (<3.5-17.0)
[2020-11-02 10:39] LABS: Alanine Aminotransferase 8 U/L (0-31); Alkaline Phosphatase 66 U/L (39-117); Anion Gap 13 (12-20); Aspartate Amino Transferase 11 U/L (5-31); Bilirubin Direct 0.2 mg/dL (0.0-0.5); Bilirubin Total 0.3 mg/dL (0.0-1.0); Blood Urea Nitrogen 10 mg/dL (9-16); Carbon Dioxide 23 mmol/L (22-29); Chloride 107 mmol/L (96-108); Creatinine Clr Calc Pharmacy 94.8; Estimated Glomerular Filt Rate > 60; Glucose Random 92 mg/dL (60-115); Magnesium 1.9 mg/dL (1.6-2.6); Potassium 4.2 mmol/l (3.3-5.1); Sodium 139 mmol/L (135-145); Total Protein 6.8 g/dL (6.5-8.0)
--- NOTE | 2020-11-02 10:39 | PC.NURSE ---
Awaiting lab results. Pt asked to use bathroom but she denied being able to go at this time.
[2020-11-02 11:15] LABS: Influenza A PCR NEGATIVE (Negative); Influenza B PCR NEGATIVE (Negative); Resp Syncy Virus RNA Qual PCR NEGATIVE (Negative); SARS COV2 PCR INHOUSE NEGATIVE (Negative)
[2020-11-02] MEDS: Amoxicillin/Potassium Clav 875 MG TABLET PO (11:52)
[2020-11-02 11:53] LABS: UPreg QC Valid YES; Urine Pregnancy NEGATIVE (NEGATIVE)
[2020-11-02 11:54] VITALS: BP 119/94; PULSE 94; RESP 18; TEMP 37.2; O2SAT 99
== END 2020-11-02 13:50 | disposition home or self-care (01) ==
PROVIDERS: Physician Assistant; Emergency Provider Internal Medicine
DX: J01.90 Acute sinusitis, unspecified (principal); Z20.822 Contact with and (suspected) exposure to COVID-19; G35 Multiple sclerosis
CPT/HCPCS: 0241U; 36415; 71045; 80048; 80076; 81025; 83735; 84484; 85025; 93005; 99283

== ENCOUNTER 2020-11-16 10:46 | Emergency (ER) | payer OTHER, SELFPAY ==
--- NOTE | ~2020-11-16 | XR_ITS ---
EXAMINATION: XR CHEST CLINICAL INFORMATION: Cough. COMPARISON: None TECHNIQUE: Frontal view of the chest was obtained. FINDINGS: The lungs are well-expanded and clear. The heart size and pulmonary vascularity is normal. No gross bony abnormality seen. XR/XR chest 1V IMPRESSION: Unremarkable chest exam. No change from 11/02/2020.
--- NOTE | ~2020-11-16 | CT_ITS ---
EXAMINATION: CT BRAIN AND CT CERVICAL SPINE WITHOUT CONTRAST. CLINICAL INFORMATION: Status post fall with head injury. COMPARISON: None TECHNIQUE: 5 mm thin axial and reformatted 2 mm thin coronal and sagittal images of brain were obtained. Subsequently 3 mm thin axial and reformatted 2 mm thin sagittal and coronal images of some cervical spine were obtained. DLP 1098. FINDINGS: BRAIN: There is no acute intra-axial, extra-axial bleed, masses or midline shift. [place] to white matter differentiation is preserved. No acute infarction seen in evolution. The lateral ventricles are symmetrical but enlarged with mild prominence of cortical sulci. Bone windows reveal no calvarial fracture. No scalp soft tissue edematous seen. There is patient motion artifact along bilateral parietal lobes. Paranasal sinuses and mastoid air cells are well-aerated. CERVICAL SPINE: There is mild straightening of cervical lordosis. The vertebral heights and alignment is normal. There is loss of C3-C4 disc height with mild ventral and posterior spondylosis. Rest of the disc heights are unremarkable. No visible acute fracture, dislocation or lytic process seen. The craniovertebral junction and C1-C2 alignment is normal. Prevertebral and paravertebral soft tissues are normal. The airway is widely patent. The lung apices are clear. CT/CT head/brain wo con IMPRESSION: No acute intracranial process seen. No acute fracture or dislocation cervical spine. There are degenerative disc changes with spondylosis at C3-C4 disc level.
--- NOTE | ~2020-11-16 | CT_ITS ---
EXAMINATION: CT BRAIN AND CT CERVICAL SPINE WITHOUT CONTRAST. CLINICAL INFORMATION: Status post fall with head injury. COMPARISON: None TECHNIQUE: 5 mm thin axial and reformatted 2 mm thin coronal and sagittal images of brain were obtained. Subsequently 3 mm thin axial and reformatted 2 mm thin sagittal and coronal images of some cervical spine were obtained. DLP 1098. FINDINGS: BRAIN: There is no acute intra-axial, extra-axial bleed, masses or midline shift. [place] to white matter differentiation is preserved. No acute infarction seen in evolution. The lateral ventricles are symmetrical but enlarged with mild prominence of cortical sulci. Bone windows reveal no calvarial fracture. No scalp soft tissue edematous seen. There is patient motion artifact along bilateral parietal lobes. Paranasal sinuses and mastoid air cells are well-aerated. CERVICAL SPINE: There is mild straightening of cervical lordosis. The vertebral heights and alignment is normal. There is loss of C3-C4 disc height with mild ventral and posterior spondylosis. Rest of the disc heights are unremarkable. No visible acute fracture, dislocation or lytic process seen. The craniovertebral junction and C1-C2 alignment is normal. Prevertebral and paravertebral soft tissues are normal. The airway is widely patent. The lung apices are clear. CT/CT cervical spine wo con IMPRESSION: No acute intracranial process seen. No acute fracture or dislocation cervical spine. There are degenerative disc changes with spondylosis at C3-C4 disc level.
[2020-11-16 12:45] VITALS: BP 119/81; BP 150/100; PULSE 86; RESP 18; TEMP 36.6; O2SAT 98; O2SAT 99; BMI 24.8
--- NOTE | 2020-11-16 12:48 | ECG_ITS ---
Test Reason : SOB Blood Pressure : / mmHG Vent. Rate : 075 BPM Atrial Rate : 075 BPM P-R Int : 176 ms QRS Dur : 086 ms QT Int : 398 ms P-R-T Axes : 065 005 058 degrees QTc Int : 444 ms Normal sinus rhythm Possible Left atrial enlargement Septal infarct , age undetermined Abnormal ECG When compared with ECG of 02-NOV-2020 09:53, Criteria for Inferior infarct are no longer Present Referred By: Harriett Turpin Electronically Signed By:DAVIN BLAKE
--- NOTE | 2020-11-16 12:49 | ED_ITS ---
HPI - General Adult General Chief complaint: Abdominal Pain <CAROL Cortes - Last Filed: 11/16/20 12:53> Stated complaint: BUTTOCK/L LEFG PAIN,R ABD PAIN W/DIARRHEA <CAROL Cortes - Last Filed: 11/16/20 12:53> Time Seen by Provider: 11/16/20 12:46 <CAROL Cortes - Last Filed: 11/16/20 12:53> Source: patient and EMS <CAROL Cortes - Last Filed: 11/16/20 12:53> EMS <Debo Fisher NP - Last Filed: 11/16/20 17:12> Mode of arrival: EMS <CAROL Cortes - Last Filed: 11/16/20 12:53> EMS <Debo Fisher NP - Last Filed: 11/16/20 17:12> Limitations: no limitations <CAROL Cortes - Last Filed: 11/16/20 12:53> no limitations <Debo Fisher NP - Last Filed: 11/16/20 17:12> History of Present Illness HPI narrative: Abdominal pain c associated nausea. Dry cough and fall c head injury c LOC. No blood thinner's. <CAROL Cortes - Last Filed: 11/16/20 12:53> 45-year-old female with a past medical history of asthma, diabetes, frequent falls, GERD, hypertension, multiple sclerosis here status post fall. The patient tells me that she went to stand up and had some lower abdominal cramping and her abdomen which was severe and associated with diarrhea. She tells me this caused her to fall to the ground and hit her head. She is unsure if she lost consciousness. Called EMS post fall. No prolonged down time. Has headache. No neck pain. No chest pain, shortness of breath, vomiting. Is complaining of a dry cough, no shortness of breath. Tested 1 week ago for COVID a negative <Debo Fisher NP - Last Filed: 11/16/20 17:12> Related Data Home medications: Home Medications Medication Instructions Recorded Confirmed albuterol sulfate [ProAir HFA] 2 puff INHALATION Q6H PRN 08/21/20 09/05/20 amlodipine 2.5 mg PO DAILY 08/21/20 09/05/20 atorvastatin 10 mg PO BEDTIME 08/21/20 09/05/20 divalproex 500 mg PO BID 08/21/20 09/05/20 hydroxyzine HCl 50 mg PO QID PRN 08/21/20 09/05/20 pantoprazole [Protonix] 40 mg PO DAILY 08/21/20 09/05/20 quetiapine [Seroquel XR] 200 mg PO DAILY 08/21/20 09/05/20 trazodone 300 mg PO BEDTIME PRN 08/21/20 09/05/20 Previous Rx's Medication Instructions Recorded acetaminophen 650 mg PO Q6H PRN #30 tab 08/24/20 oxycodone 5 mg PO Q8H PRN #15 cap 08/31/20 oxycodone 5 mg PO Q8H PRN #10 cap 09/12/20 cyclobenzaprine 10 mg PO TID PRN #10 tab 10/11/20 amoxicillin-pot clavulanate 1 tab PO Q12H 7 Days #14 tab 11/02/20 [Augmentin] fluticasone propionate [Flonase 2 spray INTRANASAL DAILY #16 g 11/02/20 Allergy Relief] dicyclomine 10 mg PO TID #20 cap 11/16/20 <CAROL Cortes - Last Filed: 11/16/20 12:53> Allergies/adverse reactions: Allergies Allergy/AdvReac Type Severity Reaction Status Date / Time Iodinated Contrast Media Allergy Severe ANAPHYLAXIS Verified 11/16/20 12:49 [CONTRAST, IV] ibuprofen [From Motrin] Allergy Intermediate SWELLING Verified 11/16/20 12:49 morphine [MORPHINE] Allergy Intermediate RASH Verified 11/16/20 12:49 acetaminophen [From TYLENOL] Allergy Mild HIVES Verified 11/16/20 12:49 bee pollen [Bee Stings] Allergy Mild UNKNOWN Verified 11/16/20 12:49 coconut Allergy Mild HIVES/SWELL Verified 11/16/20 12:49 ING latex [Latex] Allergy Mild HIVES Verified 11/16/20 12:49 NSAIDS (Non-Steroidal Allergy Mild HIVES Verified 11/16/20 12:49 Anti-Inflamma [NSAIDS (NON-STEROIDAL ANTI-INFLAMMA] aspirin [ASA] Allergy Unknown HIVES Verified 11/16/20 12:49 tramadol [TRAMADOL] Allergy Unknown UNKNOWN Verified 11/16/20 12:49 turkey Allergy Unknown UNKNOWN Verified 11/16/20 12:49 lidocaine Allergy Rash Verified 11/16/20 12:49 From Vicodin Allergy Mild RASH Uncoded 09/12/20 12:37 <CAROL Cortes - Last Filed: 11/16/20 12:53> Review of Systems Review of Systems: Yes all other systems are reviewed and are negative <Debo Fisher NP - Last Filed: 11/16/20 17:12> Constitutional: Constitutional: Reports no additional constitutional complaints, Denies body ache(s), Denies chills, Denies fever(s), Reports headache(s) and Reports weakness <Debo Fisher NP - Last Filed: 11/16/20 17:12> Eyes: Eyes: Reports no additional eye complaints and Denies change in vision <Debo Fisher NP - Last Filed: 11/16/20 17:12> ENT: Reports system reviewed and no additional complaints, except as documented, Denies dizziness, Reports headache(s), Denies nasal congestion, Denies nasal discharge and Denies neck pain <Debo Fisher NP - Last Filed: 11/16/20 17:12> Cardiovascular: Cardiovascular: Reports no additional cardiovascular complaints, Denies chest pain, Denies leg edema and Denies dyspnea <Debo Fisher NP - Last Filed: 11/16/20 17:12> Respiratory: Respiratory: Reports no additional respiratory complaints, Denies cough and Denies dyspnea <Debo Fisher NP - Last Filed: 11/16/20 17:12> Gastrointestinal: Gastrointestinal: Reports no additional gastrointestinal complaints, Reports abdominal pain, Reports diarrhea, Denies nausea and Denies vomiting <Debo Fisher NP - Last Filed: 11/16/20 17:12> Genitourinary: Genitourinary: Reports no additional female genitourinary complaints and Denies urinary incontinence <Debo Fisher NP - Last Filed: 11/16/20 17:12> Musculoskeletal: Musculoskeletal: Reports no additional musculoskeletal complaints, Denies back pain, Denies arthralgias, Denies joint swelling, Denies neck pain, Denies numbness and Denies tingling <Debo Fisher NP - Last Filed: 11/16/20 17:12> Integumentary/Breasts: Skin/Breast: Reports system reviewed and no additional complaints, except as docu and Denies rash <Debo Fisher NP - Last Filed: 11/16/20 17:12> Neurologic: Reports system reviewed and no additional complaints, except as documented, Denies Abnormal speech present, Denies dizziness, Reports headach e(s), Denies numbness, Denies tingling and Reports weakness <Debo Fisher NP - Last Filed: 11/16/20 17:12> [facility] Past Medical History Attestation statement: The following information was validated with the patient. <CAROL Cortes - Last Filed: 11/16/20 12:53> Medical History: Medical History Asthma section wound complication Diabetes Fall GERD (gastroesophageal reflux disease) History of seizure Hypertension Multiple sclerosis Multiple sclerosis exacerbation <CAROL Cortes - Last Filed: 11/16/20 12:53> Surgical History: Surgical History History of left ankle joint replacement History of thoracic surgery <CAROL Cortes - Last Filed: 11/16/20 12:53> Social History Social History: Social History Household Members: Family Housing: Other Alcohol intake: never Smoking Status: Never smoker Tobacco Type: Cigarette Packs Per Day: 1 Cigarettes Per Day: 20.0 Second Hand Smoke Exposure: Yes Substance Use Type: Crack/Cocaine Advance Directives: No Advance Directives Information Provided: No service: No Current occupational status: unemployed <CAROL Cortes - Last Filed: 11/16/20 12:53> Physical Exam Vital Signs: Vital Signs: Last Vital Signs Temp 97.9 F 11/16/20 12:45 Pulse 86 11/16/20 12:45 Resp 18 11/16/20 12:45 BP 119/81 11/16/20 12:45 Pulse Ox 99 11/16/20 12:45 Body Mass Index 24.8 <CAROL Cortes - Last Filed: 11/16/20 12:53> Vital Signs: Last Vital Signs Temp 97.9 F 11/16/20 12:45 Pulse 86 11/16/20 12:45 Resp 18 11/16/20 12:45 BP 119/81 11/16/20 12:45 Pulse Ox 99 11/16/20 12:45 Body Mass Index 24.8 <Debo Fisher NP - Last Filed: 11/16/20 17:12> Const: General: cooperative, healthy appearing, comfortable and no acute distress <Debo Fisher NP - Last Filed: 11/16/20 17:12> Orientation/consciousness: patient oriented x3 <Debo Fisher NP - Last Filed: 11/16/20 17:12> Limitations: no limitations <Debo Fisher NP - Last Filed: 11/16/20 17:12> HENMT: Head: Yes normal to inspection <Debo Fisher NP - Last Filed: 11/16/20 17:12> Ears: hearing grossly normal bilaterally <Debo Fisher NP - Last Filed: 11/16/20 17:12> General nose exam: Normal external nose present <Debo Fisher NP - Last Filed: 11/16/20 17:12> Face and sinus: Yes normal facial exam <Debo Fisher NP - Last Filed: 11/16/20 17:12> Mouth: Normal oral and palatal mucosa present <Debo Fisher NP - Last Filed: 11/16/20 17:12> Throat: Yes posterior oropharynx normal <Debo Fisher NP - Last Filed: 11/16/20 17:12> Eyes: General: appearance normal, both eyes and all related structures <Rodney Fisher NP - Last Filed: 11/16/20 17:12> Pupils: Equal, round and reactive pupils present <Debo Fisher NP - Last Filed: 11/16/20 17:12> Neck: Neck: Yes normal visual inspection <Debo Fisher NP - Last Filed: 11/16/20 17:12> Chest: Chest palpation & inspection: normal inspection of the chest <Debo Fisher NP - Last Filed: 11/16/20 17:12> Resp: Effort & Inspection: normal respiratory effort <Debo Fisher NP - Last Filed: 11/16/20 17:12> Auscultation: clear to auscultation bilaterally <Debo Fisher NP - Last Filed: 11/16/20 17:12> Cardio: Rate: regular rate <Debo Fisher NP - Last Filed: 11/16/20 17:12> Rhythm: regular rhythm <Debo Fisher NP - Last Filed: 11/16/20 17:12> Peripheral pulses: Peripheral pulses 2+ throughout <Debo Fisher NP - Last Filed: 11/16/20 17:12> GI: Inspection: Yes normal to inspection <Debo Fisher NP - Last Filed: 11/16/20 17:12> Palpation (GI): Soft to palpation, nontender and no guarding <Debo collier NP - Last Filed: 11/16/20 17:12> Auscultation: normal bowel sounds <Debo Fisher NP - Last Filed: 11/16/20 17:12> Back/Spine/Pelvis: Thoracic/Lumbar Spine: thoracic and lumbar spine normal to inspection <Debo Fisher NP - Last Filed: 11/16/20 17:12> Skin: General skin exam: no rashes or lesions noted <Debo Fisher NP - Last Filed: 11/16/20 17:12> Neuro: General: patient oriented x3, no focal motor deficits and normal sensation to monofilament <Debo Fisher NP - Last Filed: 11/16/20 17:12> Cranial nerves: Yes Equal, round and reactive pupils present <Debo Fisher NP - Last Filed: 11/16/20 17:12> Cognition (Neuro): normal cognition <Debo Fisher NP - Last Filed: 11/16/20 17:12> Speech: No Abnormal speech present <Debo Fisher NP - Last Filed: 11/16/20 17:12> Gait exam (Neuro): Normal gait present <Debo Fisher NP - Last Filed: 11/16/20 17:12> Motor exam (neuro): 5/5 motor strength present throughout <Debo Fisher NP - Last Filed: 11/16/20 17:12> Extrem: General: Yes normal to inspection <Debo Fisher NP - Last Filed: 11/16/20 17:12> Course Course Course Narrative: 12:50pm - RME performed at this time - 45yoF presenting via EMS c lower abd pain c associated nausea started today therefore on her way to the bathroom her legs gave out due to Multiple sclerosis and she fell in her house hitting the wood floor and her reports she had LOC x 45 mins and he called EMS. Reports she had the flu and still has a dry cough. Denies being on blood thinner's. - On exam A&O x 3 not in any acute distress. Vitals Stable. No focal neuro deficits noted. - Labs, COVID/RSV/FLU, CXR, Ct scan of brain/cervical spine ordered at this time. Pt back to waiting room. <CARLO Cortes - Last Filed: 11/16/20 12:53> [id number]-old female here with the past medical history of multiple sclerosis after a fall. The patient tells me that she has had a mild cough with lower abdominal cramping and nausea and diarrhea for the last 2 days. Tested f or COVID negative. Today while standing due to the pain she fell hitting her head. Initially she told the provider that she have lost consciousness however when I inquired further she is unsure if she had loss of consciousness. On arrival she was complaining of a mild headache. No neck pain. No neurological deficits. No focal abdominal pain on exam. Declined additional COVID test that she was just tested. CT head and neck unremarkable. Chest x-ray negative. Labs and UA negative. Drug screen positive for cocaine. Patient makes multiple request for narcotic pain medication. I explained to her that this would not be given. While frustrated she accepted PO bentyl. Likely viral syndrome. Less likely underlying diverticulitis with no focal abdominal pain or leukocytosis or fever. Patient ate 8 Jeferson crackers and to sanna Ales while in the emergency department with no complaints. Reviewed worrisome signs and symptoms of when to return to the emergency department. Comfortable discharge home. <Debo Fisher NP - Last Filed: 11/16/20 17:12> Medical Decision Making Medical Records Medical records reviewed: Yes I reviewed the patient's medical records. <Debo Fisher NP - Last Filed: 11/16/20 17:12> Lab Data Result diagrams: : 11/16/20 14:21 11/16/20 14:21 <CAROL Cortes - Last Filed: 11/16/20 12:53> Labs: Lab Results 11/16/20 11/16/20 11/16/20 Range/Units 14:20 14:21 14:21 WBC 4.7 L (4.8-10.8) X10*3/uL RBC 4.39 (4.20-5.50) X10*6/uL Hgb 11.8 L (12.0-16.0) g/dl Hct 37.7 (37-47) % MCV 85.9 (80-98) fL MCH 26.9 L (27.0-33.0) pg MCHC 31.3 (31.0-35.0) g/dl RDW 15.3 (11.0-16.0) % Plt Count 243 (160-400) X10*3/uL MPV 12.5 H (9.4-12.3) fL Immature Gran % (Auto) 0.2 (0.0-0.4) % Neut % (Auto) 47.4 (45-73) % Lymph % (Auto) 44.6 H (20-40) % [place] % (Auto) 6.4 (2-11) % Eos % (Auto) 0.8 (0-4) % Baso % (Auto) 0.6 (0-2) % Lymph # (Auto) 2.1 (1.2-4.9) X10*3/uL [place] # (Auto) 0.3 (0.1-1.2) X10*3/uL Eos # (Auto) 0.0 (0.0-0.4) X10*3/uL Baso # (Auto) 0.0 (0.0-0.2) X10*3/uL Abs Immat Gran (auto) 0.01 (0.00-0.03) X10*3/uL Absolute Neuts (auto) 2.2 (2.0-8.3) X10*3/uL Absolute Nucleated RBC 0.000 (0.0-0.012) X10*3/uL Nucleated RBC % (auto) 0.0 (0.0-0.2) /100WBC Hold Purple Top SEE NOTE PT 11.8 (10.8-13.0) SEC INR 1.0 (0.9-1.1) Sodium (135-145) mmol/L Potassium (3.3-5.1) mmol/L Chloride (96-108) mmol/L Carbon Dioxide (22-29) mmol/L Anion Gap (12-20) BUN (9-16) mg/dL Creatinine (0.5-1.4) mg/dL Estim Creat Clear Calc Estimated GFR Random Glucose (60-115) mg/dL Calcium (8.4-10.2) mg/dL Magnesium (1.6-2.6) mg/dL Ferritin (10-250) ng/mL Total Bilirubin (0.0-1.0) mg/dL Direct Bilirubin (0.0-0.5) mg/dL AST (5-31) U/L ALT (0-31) U/L Alkaline Phosphatase (39-117) U/L Lactate Dehydrogenase (122-220) U/L C-Reactive Protein (< or = 0.50) mg/dL B-Natriuretic Peptide (<100) pg/mL Total Protein (6.5-8.0) g/dL Albumin (3.5-5.0) g/dL Lipase (8-78) U/L Procalcitonin ng/mL Urine Color Urine Appearance Urine pH (5.0-8.0) Ur Specific [place] (1.005-1.025) Urine Protein (NEG-TRACE) MG/DL Urine Glucose (UA) (NEG) MG/DL Urine Ketones (NEG) MG/DL Urine Blood (NEG) Urine Nitrite (NEG) Ur Leukocyte Esterase (NEG) Urine Opiates Screen (Not Detect) Ur Barbiturates Screen (Not Detect) Ur Phencyclidine Scrn (Not Detect) Ur Amphetamines Screen (Not Detect) U Benzodiazepines Scrn (Not Detect) Urine Cocaine Screen (Not Detect) U Marijuana (THC) Screen (Not Detect) Ethyl Alcohol mg/dL 11/16/20 11/16/20 11/16/20 Range/Units 14:21 14:21 14:21 WBC (4.8-10.8) X10*3/uL RBC (4.20-5.50) X10*6/uL Hgb (12.0-16.0) g/dl Hct (37-47) % MCV (80-98) fL MCH (27.0-33.0) pg MCHC (31.0-35.0) g/dl RDW (11.0-16.0) % Plt Count (160-400) X10*3/uL MPV (9.4-12.3) fL Immature Gran % (Auto) (0.0-0.4) % Neut % (Auto) (45-73) % Lymph % (Auto) (20-40) % [place] % (Auto) (2-11) % Eos % (Auto) (0-4) % Baso % (Auto) (0-2) % Lymph # (Auto) (1.2-4.9) X10*3/uL [place] # (Auto) (0.1-1.2) X10*3/uL Eos # (Auto) (0.0-0.4) X10*3/uL Baso # (Auto) (0.0-0.2) X10*3/uL Abs Immat Gran (auto) (0.00-0.03) X10*3/uL Absolute Neuts (auto) (2.0-8.3) X10*3/uL Absolute Nucleated RBC (0.0-0.012) X10*3/uL Nucleated RBC % (auto) (0.0-0.2) /100WBC Hold Purple Top PT (10.8-13.0) SEC INR (0.9-1.1) Sodium 140 (135-145) mmol/L Potassium 4.3 (3.3-5.1) mmol/L Chloride 108 (96-108) mmol/L Carbon Dioxide 27 (22-29) mmol/L Anion Gap 9 L (12-20) BUN 10 (9-16) mg/dL Creatinine 0.74 (0.5-1.4) mg/dL Estim Creat Clear Calc 103.8 Estimated GFR > 60 Random Glucose 88 (60-115) mg/dL Calcium 8.9 (8.4-10.2) mg/dL Magnesium 2.1 (1.6-2.6) mg/dL Ferritin 8 L (10-250) ng/mL Total Bilirubin 0.2 (0.0-1.0) mg/dL Direct Bilirubin < 0.2 (0.0-0.5) mg/dL AST 10 (5-31) U/L ALT 6 (0-31) U/L Alkaline Phosphatase 68 (39-117) U/L Lactate Dehydrogenase 115 L (122-220) U/L C-Reactive Protein 0.06 (< or = 0.50) mg/dL B-Natriuretic Peptide < 10 (<100) pg/mL Total Protein 6.4 L (6.5-8.0) g/dL Albumin 3.8 (3.5-5.0) g/dL Lipase 29 (8-78) U/L Procalcitonin ng/mL Urine Color Urine Appearance Urine pH (5.0-8.0) Ur Specific [place] (1.005-1.025) Urine Protein (NEG-TRACE) MG/DL Urine Glucose (UA) (NEG) MG/DL Urine Ketones (NEG) MG/DL Urine Blood (NEG) Urine Nitrite (NEG) Ur Leukocyte Esterase (NEG) Urine Opiates Screen (Not Detect) Ur Barbiturates Screen (Not Detect) Ur Phencyclidine Scrn (Not Detect) Ur Amphetamines Screen (Not Detect) U Benzodiazepines Scrn (Not Detect) Urine Cocaine Screen (Not Detect) U Marijuana (THC) Screen (Not Detect) Ethyl Alcohol mg/dL 11/16/20 11/16/20 11/16/20 Range/Units 14:21 14:21 16:03 WBC (4.8-10.8) X10*3/uL RBC (4.20-5.50) X10*6/uL Hgb (12.0-16.0) g/dl Hct (37-47) % MCV (80-98) fL MCH (27.0-33.0) pg MCHC (31.0-35.0) g/dl RDW (11.0-16.0) % Plt Count (160-400) X10*3/uL MPV (9.4-12.3) fL Immature Gran % (Auto) (0.0-0.4) % Neut % (Auto) (45-73) % Lymph % (Auto) (20-40) % [place] % (Auto) (2-11) % Eos % (Auto) (0-4) % Baso % (Auto) (0-2) % Lymph # (Auto) (1.2-4.9) X10*3/uL [place] # (Auto) (0.1-1.2) X10*3/uL Eos # (Auto) (0.0-0.4) X10*3/uL Baso # (Auto) (0.0-0.2) X10*3/uL Abs Immat Gran (auto) (0.00-0.03) X10*3/uL Absolute Neuts (auto) (2.0-8.3) X10*3/uL Absolute Nucleated RBC (0.0-0.012) X10*3/uL Nucleated RBC % (auto) (0.0-0.2) /100WBC Hold Purple Top PT (10.8-13.0) SEC INR (0.9-1.1) Sodium (135-145) mmol/L Potassium (3.3-5.1) mmol/L Chloride (96-108) mmol/L Carbon Dioxide (22-29) mmol/L Anion Gap (12-20) BUN (9-16) mg/dL Creatinine (0.5-1.4) mg/dL Estim Creat Clear Calc Estimated GFR Random Glucose (60-115) mg/dL Calcium (8.4-10.2) mg/dL Magnesium (1.6-2.6) mg/dL Ferritin (10-250) ng/mL Total Bilirubin (0.0-1.0) mg/dL Direct Bilirubin (0.0-0.5) mg/dL AST (5-31) U/L ALT (0-31) U/L Alkaline Phosphatase (39-117) U/L Lactate Dehydrogenase (122-220) U/L C-Reactive Protein (< or = 0.50) mg/dL B-Natriuretic Peptide (<100) pg/mL Total Protein (6.5-8.0) g/dL Albumin (3.5-5.0) g/dL Lipase (8-78) U/L Procalcitonin < 0.02 ng/mL Urine Color Urine Appearance Urine pH (5.0-8.0) Ur Specific [place] (1.005-1.025) Urine Protein (NEG-TRACE) MG/DL Urine Glucose (UA) (NEG) MG/DL Urine Ketones (NEG) MG/DL Urine Blood (NEG) Urine Nitrite (NEG) Ur Leukocyte Esterase (NEG) Urine Opiates Screen Not Detected (Not Detect) Ur Barbiturates Screen Not Detected (Not Detect) Ur Phencyclidine Scrn Not Detected (Not Detect) Ur Amphetamines Screen Not Detected (Not Detect) U Benzodiazepines Scrn Not Detected (Not Detect) Urine Cocaine Screen POSITIVE H (Not Detect) U Marijuana (THC) Screen Not Detected (Not Detect) Ethyl Alcohol < 10 mg/dL 11/16/20 Range/Units 16:03 WBC (4.8-10.8) X10*3/uL RBC (4.20-5.50) X10*6/uL Hgb (12.0-16.0) g/dl Hct (37-47) % MCV (80-98) fL MCH (27.0-33.0) pg MCHC (31.0-35.0) g/dl RDW (11.0-16.0) % Plt Count (160-400) X10*3/uL MPV (9.4-12.3) fL Immature Gran % (Auto) (0.0-0.4) % Neut % (Auto) (45-73) % Lymph % (Auto) (20-40) % [place] % (Auto) (2-11) % Eos % (Auto) (0-4) % Baso % (Auto) (0-2) % Lymph # (Auto) (1.2-4.9) X10*3/uL [place] # (Auto) (0.1-1.2) X10*3/uL Eos # (Auto) (0.0-0.4) X10*3/uL Baso # (Auto) (0.0-0.2) X10*3/uL Abs Immat Gran (auto) (0.00-0.03) X10*3/uL Absolute Neuts (auto) (2.0-8.3) X10*3/uL Absolute Nucleated RBC (0.0-0.012) X10*3/uL Nucleated RBC % (auto) (0.0-0.2) /100WBC Hold Purple Top PT (10.8-13.0) SEC INR (0.9-1.1) Sodium (135-145) mmol/L Potassium (3.3-5.1) mmol/L Chloride (96-108) mmol/L Carbon Dioxide (22-29) mmol/L Anion Gap (12-20) BUN (9-16) mg/dL Creatinine (0.5-1.4) mg/dL Estim Creat Clear Calc Estimated GFR Random Glucose (60-115) mg/dL Calcium (8.4-10.2) mg/dL Magnesium (1.6-2.6) mg/dL Ferritin (10-250) ng/mL Total Bilirubin (0.0-1.0) mg/dL Direct Bilirubin (0.0-0.5) mg/dL AST (5-31) U/L ALT (0-31) U/L Alkaline Phosphatase (39-117) U/L Lactate Dehydrogenase (122-220) U/L C-Reactive Protein (< or = 0.50) mg/dL B-Natriuretic Peptide (<100) pg/mL Total Protein (6.5-8.0) g/dL Albumin (3.5-5.0) g/dL Lipase (8-78) U/L Procalcitonin ng/mL Urine Color YELLOW Urine Appearance CLEAR Urine pH 6.5 (5.0-8.0) Ur Specific [place] 1.020 (1.005-1.025) Urine Protein NEG (NEG-TRACE) MG/DL Urine Glucose (UA) NEG (NEG) MG/DL Urine Ketones NEG (NEG) MG/DL Urine Blood NEG (NEG) Urine Nitrite NEG (NEG) Ur Leukocyte Esterase NEG (NEG) Urine Opiates Screen (Not Detect) Ur Barbiturates Screen (Not Detect) Ur Phencyclidine Scrn (Not Detect) Ur Amphetamines Screen (Not Detect) U Benzodiazepines Scrn (Not Detect) Urine Cocaine Screen (Not Detect) U Marijuana (THC) Screen (Not Detect) Ethyl Alcohol mg/dL <CAROL Cortes - Last Filed: 11/16/20 12:53> Lab Results 11/16/20 11/16/20 11/16/20 Range/Units 14:20 14:21 14:21 WBC 4.7 L (4.8-10.8) X10*3/uL RBC 4.39 (4.20-5.50) X10*6/uL Hgb 11.8 L (12.0-16.0) g/dl Hct 37.7 (37-47) % MCV 85.9 (80-98) fL MCH 26.9 L (27.0-33.0) pg MCHC 31.3 (31.0-35.0) g/dl RDW 15.3 (11.0-16.0) % Plt Count 243 (160-400) X10*3/uL MPV 12.5 H (9.4-12.3) fL Immature Gran % (Auto) 0.2 (0.0-0.4) % Neut % (Auto) 47.4 (45-73) % Lymph % (Auto) 44.6 H (20-40) % [place] % (Auto) 6.4 (2-11) % Eos % (Auto) 0.8 (0-4) % Baso % (Auto) 0.6 (0-2) % Lymph # (Auto) 2.1 (1.2-4.9) X10*3/uL [place] # (Auto) 0.3 (0.1-1.2) X10*3/uL Eos # (Auto) 0.0 (0.0-0.4) X10*3/uL Baso # (Auto) 0.0 (0.0-0.2) X10*3/uL Abs Immat Gran (auto) 0.01 (0.00-0.03) X10*3/uL Absolute Neuts (auto) 2.2 (2.0-8.3) X10*3/uL Absolute Nucleated RBC 0.000 (0.0-0.012) X10*3/uL Nucleated RBC % (auto) 0.0 (0.0-0.2) /100WBC Hold Purple Top SEE NOTE PT 11.8 (10.8-13.0) SEC INR 1.0 (0.9-1.1) Sodium (135-145) mmol/L Potassium (3.3-5.1) mmol/L Chloride (96-108) mmol/L Carbon Dioxide (22-29) mmol/L Anion Gap (12-20) BUN (9-16) mg/dL Creatinine (0.5-1.4) mg/dL Estim Creat Clear Calc Estimated GFR Random Glucose (60-115) mg/dL Calcium (8.4-10.2) mg/dL Magnesium (1.6-2.6) mg/dL Ferritin (10-250) ng/mL Total Bilirubin (0.0-1.0) mg/dL Direct Bilirubin (0.0-0.5) mg/dL AST (5-31) U/L ALT (0-31) U/L Alkaline Phosphatase (39-117) U/L Lactate Dehydrogenase (122-220) U/L C-Reactive Protein (< or = 0.50) mg/dL B-Natriuretic Peptide (<100) pg/mL Total Protein (6.5-8.0) g/dL Albumin (3.5-5.0) g/dL Lipase (8-78) U/L Procalcitonin ng/mL Urine Color Urine Appearance Urine pH (5.0-8.0) Ur Specific [place] (1.005-1.025) Urine Protein (NEG-TRACE) MG/DL Urine Glucose (UA) (NEG) MG/DL Urine Ketones (NEG) MG/DL Urine Blood (NEG) Urine Nitrite (NEG) Ur Leukocyte Esterase (NEG) Urine Opiates Screen (Not Detect) Ur Barbiturates Screen (Not Detect) Ur Phencyclidine Scrn (Not Detect) Ur Amphetamines Screen (Not Detect) U Benzodiazepines Scrn (Not Detect) Urine Cocaine Screen (Not Detect) U Marijuana (THC) Screen (Not Detect) Ethyl Alcohol mg/dL 11/16/20 11/16/20 11/16/20 Range/Units 14:21 14:21 14:21 WBC (4.8-10.8) X10*3/uL RBC (4.20-5.50) X10*6/uL Hgb (12.0-16.0) g/dl Hct (37-47) % MCV (80-98) fL MCH (27.0-33.0) pg MCHC (31.0-35.0) g/dl RDW (11.0-16.0) % Plt Count (160-400) X10*3/uL MPV (9.4-12.3) fL Immature Gran % (Auto) (0.0-0.4) % Neut % (Auto) (45-73) % Lymph % (Auto) (20-40) % [place] % (Auto) (2-11) % Eos % (Auto) (0-4) % Baso % (Auto) (0-2) % Lymph # (Auto) (1.2-4.9) X10*3/uL [place] # (Auto) (0.1-1.2) X10*3/uL Eos # (Auto) (0.0-0.4) X10*3/uL Baso # (Auto) (0.0-0.2) X10*3/uL Abs Immat Gran (auto) (0.00-0.03) X10*3/uL Absolute Neuts (auto) (2.0-8.3) X10*3/uL Absolute Nucleated RBC (0.0-0.012) X10*3/uL Nucleated RBC % (auto) (0.0-0.2) /100WBC Hold Purple Top PT (10.8-13.0) SEC INR (0.9-1.1) Sodium 140 (135-145) mmol/L Potassium 4.3 (3.3-5.1) mmol/L Chloride 108 (96-108) mmol/L Carbon Dioxide 27 (22-29) mmol/L Anion Gap 9 L (12-20) BUN 10 (9-16) mg/dL Creatinine 0.74 (0.5-1.4) mg/dL Estim Creat Clear Calc 103.8 Estimated GFR > 60 Random Glucose 88 (60-115) mg/dL Calcium 8.9 (8.4-10.2) mg/dL Magnesium 2.1 (1.6-2.6) mg/dL Ferritin 8 L (10-250) ng/mL Total Bilirubin 0.2 (0.0-1.0) mg/dL Direct Bilirubin < 0.2 (0.0-0.5) mg/dL AST 10 (5-31) U/L ALT 6 (0-31) U/L Alkaline Phosphatase 68 (39-117) U/L Lactate Dehydrogenase 115 L (122-220) U/L C-Reactive Protein 0.06 (< or = 0.50) mg/dL B-Natriuretic Peptide < 10 (<100) pg/mL Total Protein 6.4 L (6.5-8.0) g/dL Albumin 3.8 (3.5-5.0) g/dL Lipase 29 (8-78) U/L Procalcitonin ng/mL Urine Color Urine Appearance Urine pH (5.0-8.0) Ur Specific [place] (1.005-1.025) Urine Protein (NEG-TRACE) MG/DL Urine Glucose (UA) (NEG) MG/DL Urine Ketones (NEG) MG/DL Urine Blood (NEG) Urine Nitrite (NEG) Ur Leukocyte Esterase (NEG) Urine Opiates Screen (Not Detect) Ur Barbiturates Screen (Not Detect) Ur Phencyclidine Scrn (Not Detect) Ur Amphetamines Screen (Not Detect) U Benzodiazepines Scrn (Not Detect) Urine Cocaine Screen (Not Detect) U Marijuana (THC) Screen (Not Detect) Ethyl Alcohol mg/dL 11/16/20 11/16/20 11/16/20 Range/Units 14:21 14:21 16:03 WBC (4.8-10.8) X10*3/uL RBC (4.20-5.50) X10*6/uL Hgb (12.0-16.0) g/dl Hct (37-47) % MCV (80-98) fL MCH (27.0-33.0) pg MCHC (31.0-35.0) g/dl RDW (11.0-16.0) % Plt Count (160-400) X10*3/uL MPV (9.4-12.3) fL Immature Gran % (Auto) (0.0-0.4) % Neut % (Auto) (45-73) % Lymph % (Auto) (20-40) % [place] % (Auto) (2-11) % Eos % (Auto) (0-4) % Baso % (Auto) (0-2) % Lymph # (Auto) (1.2-4.9) X10*3/uL [place] # (Auto) (0.1-1.2) X10*3/uL Eos # (Auto) (0.0-0.4) X10*3/uL Baso # (Auto) (0.0-0.2) X10*3/uL Abs Immat Gran (auto) (0.00-0.03) X10*3/uL Absolute Neuts (auto) (2.0-8.3) X10*3/uL Absolute Nucleated RBC (0.0-0.012) X10*3/uL Nucleated RBC % (auto) (0.0-0.2) /100WBC Hold Purple Top PT (10.8-13.0) SEC INR (0.9-1.1) Sodium (135-145) mmol/L Potassium (3.3-5.1) mmol/L Chloride (96-108) mmol/L Carbon Dioxide (22-29) mmol/L Anion Gap (12-20) BUN (9-16) mg/dL Creatinine (0.5-1.4) mg/dL Estim Creat Clear Calc Estimated GFR Random Glucose (60-115) mg/dL Calcium (8.4-10.2) mg/dL Magnesium (1.6-2.6) mg/dL Ferritin (10-250) ng/mL Total Bilirubin (0.0-1.0) mg/dL Direct Bilirubin (0.0-0.5) mg/dL AST (5-31) U/L ALT (0-31) U/L Alkaline Phosphatase (39-117) U/L Lactate Dehydrogenase (122-220) U/L C-Reactive Protein (< or = 0.50) mg/dL B-Natriuretic Peptide (<100) pg/mL Total Protein (6.5-8.0) g/dL Albumin (3.5-5.0) g/dL Lipase (8-78) U/L Procalcitonin < 0.02 ng/mL Urine Color Urine Appearance Urine pH (5.0-8.0) Ur Specific [place] (1.005-1.025) Urine Protein (NEG-TRACE) MG/DL Urine Glucose (UA) (NEG) MG/DL Urine Ketones (NEG) MG/DL Urine Blood (NEG) Urine Nitrite (NEG) Ur Leukocyte Esterase (NEG) Urine Opiates Screen Not Detected (Not Detect) Ur Barbiturates Screen Not Detected (Not Detect) Ur Phencyclidine Scrn Not Detected (Not Detect) Ur Amphetamines Screen Not Detected (Not Detect) U Benzodiazepines Scrn Not Detected (Not Detect) Urine Cocaine Screen POSITIVE H (Not Detect) U Marijuana (THC) Screen Not Detected (Not Detect) Ethyl Alcohol < 10 mg/dL 11/16/20 Range/Units 16:03 WBC (4.8-10.8) X10*3/uL RBC (4.20-5.50) X10*6/uL Hgb (12.0-16.0) g/dl Hct (37-47) % MCV (80-98) fL MCH (27.0-33.0) pg MCHC (31.0-35.0) g/dl RDW (11.0-16.0) % Plt Count (160-400) X10*3/uL MPV (9.4-12.3) fL Immature Gran % (Auto) (0.0-0.4) % Neut % (Auto) (45-73) % Lymph % (Auto) (20-40) % [place] % (Auto) (2-11) % Eos % (Auto) (0-4) % Baso % (Auto) (0-2) % Lymph # (Auto) (1.2-4.9) X10*3/uL [place] # (Auto) (0.1-1.2) X10*3/uL Eos # (Auto) (0.0-0.4) X10*3/uL Baso # (Auto) (0.0-0.2) X10*3/uL Abs Immat Gran (auto) (0.00-0.03) X10*3/uL Absolute Neuts (auto) (2.0-8.3) X10*3/uL Absolute Nucleated RBC (0.0-0.012) X10*3/uL Nucleated RBC % (auto) (0.0-0.2) /100WBC Hold Purple Top PT (10.8-13.0) SEC INR (0.9-1.1) Sodium (135-145) mmol/L Potassium (3.3-5.1) mmol/L Chloride (96-108) mmol/L Carbon Dioxide (22-29) mmol/L Anion Gap (12-20) BUN (9-16) mg/dL Creatinine (0.5-1.4) mg/dL Estim Creat Clear Calc Estimated GFR Random Glucose (60-115) mg/dL Calcium (8.4-10.2) mg/dL Magnesium (1.6-2.6) mg/dL Ferritin (10-250) ng/mL Total Bilirubin (0.0-1.0) mg/dL Direct Bilirubin (0.0-0.5) mg/dL AST (5-31) U/L ALT (0-31) U/L Alkaline Phosphatase (39-117) U/L Lactate Dehydrogenase (122-220) U/L C-Reactive Protein (< or = 0.50) mg/dL B-Natriuretic Peptide (<100) pg/mL Total Protein (6.5-8.0) g/dL Albumin (3.5-5.0) g/dL Lipase (8-78) U/L Procalcitonin ng/mL Urine Color YELLOW Urine Appearance CLEAR Urine pH 6.5 (5.0-8.0) Ur Specific [place] 1.020 (1.005-1.025) Urine Protein NEG (NEG-TRACE) MG/DL Urine Glucose (UA) NEG (NEG) MG/DL Urine Ketones NEG (NEG) MG/DL Urine Blood NEG (NEG) Urine Nitrite NEG (NEG) Ur Leukocyte Esterase NEG (NEG) Urine Opiates Screen (Not Detect) Ur Barbiturates Screen (Not Detect) Ur Phencyclidine Scrn (Not Detect) Ur Amphetamines Screen (Not Detect) U Benzodiazepines Scrn (Not Detect) Urine Cocaine Screen (Not Detect) U Marijuana (THC) Screen (Not Detect) Ethyl Alcohol mg/dL <Debo Fisher NP - Last Filed: 11/16/20 17:12> Imaging Data ct scan head/neck: Attestation: I personally reviewed and interpreted this imaging study as follows: <Debo Fisher NP - Last Filed: 11/16/20 17:12> Radiologist's impression: EXAMINATION: CT BRAIN AND CT CERVICAL SPINE WITHOUT CONTRAST. CLINICAL INFORMATION: Status post fall with head injury. COMPARISON: None TECHNIQUE: 5 mm thin axial and reformatted 2 mm thin coronal and sagittal images of brain were obtained. Subsequently 3 mm thin axial and reformatted 2 mm thin sagittal and coronal images of some cervical spine were obtained. DLP 1098. FINDINGS: BRAIN: There is no acute intra-axial, extra-axial bleed, masses or midline shift. [place] to white matter differentiation is preserved. No acute infarction seen in evolution. The lateral ventricles are symmetrical but enlarged with mild prominence of cortical sulci. Bone windows reveal no calvarial fracture. No scalp soft tissue edematous seen. There is patient motion artifact along bilateral parietal lobes. Paranasal sinuses and mastoid air cells are well-aerated. CERVICAL SPINE: There is mild straightening of cervical lordosis. The vertebral heights and alignment is normal. There is loss of C3-C4 disc height with mild ventral and posterior spondylosis. Rest of the disc heights are unremarkable. No visible acute fracture, dislocation or lytic process seen. The craniovertebral junction and C1-C2 alignment is normal. Prevertebral and paravertebral soft tissues are normal. The airway is widely patent. The lung apices are clear. CT/CT cervical spine wo con IMPRESSION: No acute intracranial process seen. No acute fracture or dislocation cervical spine. There are degenerative disc changes with spondylosis at C3-C4 disc level. <Debo Fisher NP - Last Filed: 11/16/20 17:12> Chest x-ray: Attestation: I personally reviewed and interpreted this imaging study as follows: <Debo Fisher NP - Last Filed: 11/16/20 17:12> Radiologist's impression: EXAMINATION: XR CHEST CLINICAL INFORMATION: Cough. COMPARISON: None TECHNIQUE: Frontal view of the chest was obtained. FINDINGS: The lungs are well-expanded and clear. The heart size and pulmonary vascularity is normal. No gross bony abnormality seen. XR/XR chest 1V IMPRESSION: Unremarkable chest exam. No change from 11/02/2020. <Debo Fisher NP - Last Filed: 11/16/20 17:12> ECG Data Attestation: I personally reviewed and interpreted this ECG as follows: <Debo Fisher NP - Last Filed: 11/16/20 17:12> Interpretation: Normal sinus rhythm, normal TX, normal QRS, normal QT <Debo Fisher NP - Last Filed: 11/16/20 17:12> Discharge Plan Discharge Clinical Impression: Fall, Acute viral syndrome <CAROL Cortes - Last Filed: 11/16/20 12:53> Patient Disposition: Home, Self-Care <CAROL Cortes - Last Filed: 11/16/20 12:53> Instructions: Viral Syndrome (ED), Fall Prevention (ED) <CAROL Cortes - Last Filed: 11/16/20 12:53> Additional Instructions: Change positions slowly Follow-up with your PCP Heat to your abdomen as needed <CAROL Cortes - Last Filed: 11/16/20 12:53> Prescriptions: New dicyclomine 10 mg capsule 10 mg PO TID Qty: 20 RF: 0 No Action oxycodone 5 mg capsule 5 mg PO Q8H PRN (Reason: pain) Qty: 15 RF: 0 oxycodone 5 mg capsule 5 mg PO Q8H PRN (Reason: pain) Qty: 10 RF: 0 atorvastatin 10 mg Tablet 10 mg PO BEDTIME RF: 0 amlodipine 2.5 mg Tablet 2.5 mg PO DAILY RF: 0 hydroxyzine HCl 50 mg Tablet 50 mg PO QID PRN (Reason: Anxiety) RF: 0 divalproex 500 mg Tablet,Delayed Release (Dr/Ec) 500 mg PO BID RF: 0 pantoprazole [Protonix] 40 mg Tablet,Delayed Release (Dr/Ec) 40 mg PO DAILY RF: 0 trazodone 300 mg Tablet 300 mg PO BEDTIME PRN (Reason: Sleep) RF: 0 albuterol sulfate [ProAir HFA] 90 mcg/actuation Hfa Aerosol Inhaler 2 puff INHALATION Q6H PRN (Reason: Shortness Of Breath) RF: 0 quetiapine [Seroquel XR] 200 mg Tablet Extended Release 24 Hr 200 mg PO DAILY RF: 0 acetaminophen 325 mg Tablet 650 mg PO Q6H PRN (Reason: Pain, Mild (Pain Scale 1-3)) Qty: 30 RF: 0 cyclobenzaprine 10 mg tablet 10 mg PO TID PRN (Reason: muscle spasm) Qty: 10 RF: 0 amoxicillin-pot clavulanate [Augmentin] 875-125 mg tablet 1 tab PO Q12H 7 Days Qty: 14 RF: 0 fluticasone propionate [Flonase Allergy Relief] 50 mcg/actuation spray,suspension 2 spray intranasal DAILY Qty: 16 RF: 0 <CAROL Cortes - Last Filed: 11/16/20 12:53> Referrals: Physician,Unknown [Primary Care Provider] - 2 days <CAROL Cortes - Last Filed: 11/16/20 12:53>
[2020-11-16 14:33] LABS: MANUAL DIFF FLAG NO
[2020-11-16 14:46] LABS: Basophils Percent Auto 0.6 % (0-2); Eosinophils Percent Auto 0.8 % (0-4); Hematocrit 37.7 % (37-47); Hemoglobin 11.8 g/dl (12.0-16.0); Imm Gran Abs Auto 0.01 X10*3/uL (0.00-0.03); Imm Gran Pct Auto 0.2 % (0.0-0.4); Lymphocytes Absolute Auto 2.1 X10*3/uL (1.2-4.9); Lymphocytes Percent Auto 44.6 % (20-40); Mean Corpuscular HGB Conc 31.3 g/dl (31.0-35.0); Mean Corpuscular Hemoglobin 26.9 pg (27.0-33.0); Mean Corpuscular Volume 85.9 fL (80-98); Mean Platelet Volume 12.5 fL (9.4-12.3); Monocytes Absolute Auto 0.3 X10*3/uL (0.1-1.2); Monocytes Percent Auto 6.4 % (2-11); Neutrophils Absolute Auto 2.2 X10*3/uL (2.0-8.3); Neutrophils Percent Auto 47.4 % (45-73); Platelet Count 243 X10*3/uL (160-400); Red Blood Count 4.39 X10*6/uL (4.20-5.50); Red Cell Distribution Width 15.3 % (11.0-16.0); White Blood Count 4.7 X10*3/uL (4.8-10.8)
[2020-11-16 14:49] LABS: Prothrombin Time 11.8 SEC (10.8-13.0)
[2020-11-16 15:06] LABS: Ethanol < 10 mg/dL
[2020-11-16 15:10] LABS: Alanine Aminotransferase 6 U/L (0-31); Albumin Level 3.8 g/dL (3.5-5.0); Alkaline Phosphatase 68 U/L (39-117); Anion Gap 9 (12-20); Aspartate Amino Transferase 10 U/L (5-31); Bilirubin Direct < 0.2 mg/dL (0.0-0.5); Bilirubin Total 0.2 mg/dL (0.0-1.0); Blood Urea Nitrogen 10 mg/dL (9-16); C Reactive Protein 0.06 mg/dL (< or = 0.50); Calcium 8.9 mg/dL (8.4-10.2); Carbon Dioxide 27 mmol/L (22-29); Chloride 108 mmol/L (96-108); Creatinine Clr Calc Pharmacy 103.8; Estimated Glomerular Filt Rate > 60; Glucose Random 88 mg/dL (60-115); Lactate Dehydrogenase 115 U/L (122-220); Magnesium 2.1 mg/dL (1.6-2.6); Potassium 4.3 mmol/L (3.3-5.1); Sodium 140 mmol/L (135-145); Total Protein 6.4 g/dL (6.5-8.0)
[2020-11-16 15:11] LABS: Lipase 29 U/L (8-78)
[2020-11-16 15:12] LABS: B Type Natriuretic Peptide < 10 pg/mL (<100)
[2020-11-16 15:28] LABS: Procalcitonin < 0.02 ng/mL
[2020-11-16 15:31] LABS: Ferritin 8 ng/mL (10-250)
[2020-11-16 16:00] VITALS: BP 130/88; PULSE 90; RESP 18; TEMP 36.8; O2SAT 99
[2020-11-16 16:24] LABS: Glucose Urine UA NEG (NEG); Leukocyte Esterase Urine NEG (NEG); Nitrite Urine NEG (NEG); PH 6.5 (5.0-8.0); Urine Blood NEG (NEG); Urine Ketones NEG (NEG); Urine Protein NEG (NEG-TRACE)
[2020-11-16 16:31] LABS: Appearance Urine CLEAR; Color Urine YELLOW
[2020-11-16 16:43] LABS: Amphetamine Screen Urine Not Detected (Not Detect); Barbiturates, Urine Not Detected (Not Detect); Benzodiazepines Screen Urine Not Detected (Not Detect); Cannabinoid Screen Urine Not Detected (Not Detect); Cocaine Screen Urine POSITIVE (Not Detect); Opiate Screen Urine Not Detected (Not Detect); Phencyclidine Screen Urine Not Detected (Not Detect)
== END 2020-11-16 18:00 | disposition home or self-care (01) ==
PROVIDERS: Nurse Practitioner Family; Physician Assistant Medical; Emergency Provider Emergency Medicine
DX: B34.9 Viral infection, unspecified (principal); R10.30 Lower abdominal pain, unspecified; G35 Multiple sclerosis; E11.9 Type 2 diabetes mellitus without complications; I10 Essential (primary) hypertension; F17.210 Nicotine dependence, cigarettes, uncomplicated; Z91.81 History of falling; F14.90 Cocaine use, unspecified, uncomplicated
CPT/HCPCS: 36415; 70450; 71045; 72125; 80048; 80076; 80307; 80320; 81003; 82728; 83615; 83690; 83735; 83880; 84145; 85025; 85610; 86140; 93005; 99284

== ENCOUNTER 2020-11-22 11:39 | Emergency (ER) | payer OTHER, SELFPAY ==
[2020-11-22 12:07] VITALS: BP 143/103; BP 149/98; PULSE 71; PULSE 81; RESP 14; TEMP 35.9; O2SAT 100; O2SAT 99; BMI 24.8
--- NOTE | 2020-11-22 12:18 | ECG_ITS ---
Test Reason : CP Blood Pressure : / mmHG Vent. Rate : 071 BPM Atrial Rate : 071 BPM P-R Int : 154 ms QRS Dur : 086 ms QT Int : 320 ms P-R-T Axes : 052 000 026 degrees QTc Int : 347 ms Normal sinus rhythm Nonspecific T wave abnormality Abnormal ECG When compared with ECG of 16-NOV-2020 14:28, Criteria for Septal infarct are no longer Present Nonspecific T wave abnormality now evident in Inferior leads Nonspecific T wave abnormality, worse in Lateral leads QT has shortened Referred By: Debo Fisher Electronically Signed By:MARITZA BASURTO MD
--- NOTE | 2020-11-22 12:21 | ED.PSYCH ---
HPI - Psych General Chief Complaint: Psychiatric Symptoms Stated Complaint: CRISIS S/P ARGUMENT W/PARTNER Time Seen by Provider: 11/22/20 12:07 Source: EMS Mode of arrival: EMS Limitations: no limitations History of Present Illness HPI Narrative: 5-year-old female with a past medical history of asthma, diabetes, frequent falls, GERD, hypertension, multiple sclerosis here with complaints of depression, anxiety, suicidal thoughts with no plan. The patient tells me this morning she got into a verbal altercation with her and this made her very upset and now she feels depressed and sad. SI, no plan. No HI. No hallucinations. The patient tells me that she has chronic pain and takes oxycodone 10 mg p.r.n.. She tells me occasionally she uses crack to help with the pain as well. Her last use was yesterday. No additional substance use. MD complaint: suicidal ideation and feels depressed Related Data Home Medications Medication Instructions Recorded Confirmed albuterol sulfate [ProAir HFA] 2 puff INHALATION Q6H PRN 08/21/20 09/05/20 amlodipine 2.5 mg PO DAILY 08/21/20 09/05/20 atorvastatin 10 mg PO BEDTIME 08/21/20 09/05/20 divalproex 500 mg PO BID 08/21/20 09/05/20 hydroxyzine HCl 50 mg PO QID PRN 08/21/20 09/05/20 pantoprazole [Protonix] 40 mg PO DAILY 08/21/20 09/05/20 quetiapine [Seroquel XR] 200 mg PO DAILY 08/21/20 09/05/20 trazodone 300 mg PO BEDTIME PRN 08/21/20 09/05/20 Previous Rx's Medication Instructions Recorded acetaminophen 650 mg PO Q6H PRN #30 tab 08/24/20 oxycodone 5 mg PO Q8H PRN #15 cap 08/31/20 oxycodone 5 mg PO Q8H PRN #10 cap 09/12/20 cyclobenzaprine 10 mg PO TID PRN #10 tab 10/11/20 amoxicillin-pot clavulanate 1 tab PO Q12H 7 Days #14 tab 11/02/20 [Augmentin] fluticasone propionate [Flonase 2 spray INTRANASAL DAILY #16 g 11/02/20 Allergy Relief] dicyclomine 10 mg PO TID #20 cap 11/16/20 Allergies Allergy/AdvReac Type Severity Reaction Status Date / Time Iodinated Contrast Media Allergy Severe ANAPHYLAXIS Verified 11/16/20 12:49 [CONTRAST, IV] ibuprofen [From Motrin] Allergy Intermediate SWELLING Verified 11/16/20 12:49 morphine [MORPHINE] Allergy Intermediate RASH Verified 11/16/20 12:49 acetaminophen [From TYLENOL] Allergy Mild HIVES Verified 11/16/20 12:49 bee pollen [Bee Stings] Allergy Mild UNKNOWN Verified 11/16/20 12:49 coconut Allergy Mild HIVES/SWELL Verified 11/16/20 12:49 ING latex [Latex] Allergy Mild HIVES Verified 11/16/20 12:49 NSAIDS (Non-Steroidal Allergy Mild HIVES Verified 11/16/20 12:49 Anti-Inflamma [NSAIDS (NON-STEROIDAL ANTI-INFLAMMA] aspirin [ASA] Allergy Unknown HIVES Verified 11/16/20 12:49 tramadol [TRAMADOL] Allergy Unknown UNKNOWN Verified 11/16/20 12:49 turkey Allergy Unknown UNKNOWN Verified 11/16/20 12:49 lidocaine Allergy Rash Verified 11/16/20 12:49 From Vicodin Allergy Mild RASH Uncoded 09/12/20 12:37 Review of Systems Review of Systems: Yes all other systems are reviewed and are negative Constitutional: Constitutional: Reports no additional constitutional complaints, Denies body ache(s), Denies chills, Denies fever(s), Denies headache(s) and Denies weakness Eyes: Eyes: Reports no additional eye complaints and Denies change in vision ENT: Reports system reviewed and no additional complaints, except as documented, Denies dizziness, Denies headache(s), Denies nasal congestion, Denies nasal discharge and Denies neck pain Cardiovascular: Cardiovascular: Reports no additional cardiovascular complaints, Denies chest pain, Denies leg edema and Denies dyspnea Respiratory: Respiratory: Reports no additional respiratory complaints, Denies cough and Denies dyspnea Gastrointestinal: Gastrointestinal: Reports no additional gastrointestinal complaints, Denies abdominal pain, Denies diarrhea, Denies nausea and Denies vomiting Genitourinary: Genitourinary: Reports no additional female genitourinary complaints and Denies urinary incontinence Musculoskeletal: Musculoskeletal: Reports no additional musculoskeletal complaints, Denies back pain, Denies arthralgias, Denies joint swelling, Denies neck pain, Denies numbness and Denies tingling Integumentary/Breasts: Skin/Breast: Reports system reviewed and no additional complaints, except as docu and Denies rash Neurologic: Reports system reviewed and no additional complaints, except as documented, Denies Abnormal speech present, Denies dizziness, Denies headache(s), Denies numbness, Denies tingling and Denies weakness Psychiatric: Psychiatric: Reports anxiety, Reports depression, Denies visual hallucinations, Denies hallucinations, Denies tactile hallucinations, Denies homicidal ideation and Reports suicidal ideation [facility] Past Medical History Attestation statement: The following information was validated with the patient. Source: old records reviewed and nursing notes reviewed Medical History Asthma section wound complication Diabetes Fall GERD (gastroesophageal reflux disease) History of seizure Hypertension Multiple sclerosis Multiple sclerosis exacerbation Surgical History History of left ankle joint replacement History of thoracic surgery Social History Social History Household Members: Family Housing: Other Alcohol intake: never Smoking Status: Never smoker Tobacco Type: Cigarette Packs Per Day: 1 Cigarettes Per Day: 20.0 Second Hand Smoke Exposure: Yes Substance Use Type: Crack/Cocaine Advance Directives: No Advance Directives Information Provided: Yes service: No Current occupational status: unemployed Physical Exam Vital Signs: Vital Signs: Last Vital Signs Temp 96.7 F L 11/22/20 12:07 Pulse 87 11/22/20 16:00 Resp 16 11/22/20 16:00 BP 128/75 11/22/20 16:00 Pulse Ox 100 11/22/20 16:00 Body Mass Index 24.8 Const: General: cooperative, healthy appearing, comfortable and no acute distress Orientation/consciousness: patient oriented x3 Limitations: no limitations HENMT: Head: Yes normal to inspection Ears: hearing grossly normal bilaterally General nose exam: Normal external nose present Face and sinus: Yes normal facial exam Mouth: Normal oral and palatal mucosa present Throat: Yes posterior oropharynx normal Eyes: General: appearance normal, both eyes and all related structures Pupils: Equal, round and reactive pupils present Neck: Neck: Yes normal visual inspection Chest: Chest palpation & inspection: normal inspection of the chest Resp: Effort & Inspection: normal respiratory effort Auscultation: clear to auscultation bilaterally Cardio: Rate: regular rate Rhythm: regular rhythm Peripheral pulses: Peripheral pulses 2+ throughout GI: Inspection: Yes normal to inspection Palpation (GI): Soft to palpation and nontender Auscultation: normal bowel sounds Back/Spine/Pelvis: Thoracic/Lumbar Spine: thoracic and lumbar spine normal to inspection Skin: General skin exam: no rashes or lesions noted Neuro: General: patient oriented x3, no focal motor deficits and normal sensation to monofilament Cranial nerves: Yes Equal, round and reactive pupils present Cognition (Neuro): normal cognition Speech: No Abnormal speech present Gait exam (Neuro): Normal gait present Motor exam (neuro): 5/5 motor strength present throughout Extrem: General: Yes normal to inspection Psych: Appearance: grossly normal Mental Status: mental status grossly normal Speech and movement: Normal speech and movement present Affect: normal affect Attitude: cooperative Thought process: Normal thought process present Thought content: Suicidality present Course Course Course Narrative: 45-year-old female here with depression, anxiety and suicidal thoughts after a verbal altercation with her . Patient complaining of chronic pain all over unrelieved with her home oxycodone. No new fall or trauma. No concern for acute ingestion or trauma. Will check labs, drug screen, EKG, have BHN evaluate patient 1345-Refusing labs. Spoke to care team. Stable for discharge home. Urine pending. 1515-Ur preg negative. Pt received one dose of po ativan in the ED. Multiple requests for narcotics at home and additional benzos at home. Concern for narcotic seeking behavior. Will discharge home with outpatient resources. I did recommend to the patient that she discussed with her multiple doctors to discuss medication management. Reviewed worrisome signs and symptoms of when to return to the emergency department. Comfortable with discharge home. MDM - Psych Medical Records Attestation: I reviewed the patient's medical records. Lab Data Attestation: I reviewed the patient's lab results. Labs: Lab Results 11/22/20 11/22/20 Range/Units 14:48 14:48 Urine Test NEGATIVE (NEGATIVE) Urine Opiates Screen Not Detected (Not Detect) Ur Barbiturates Screen Not Detected (Not Detect) Ur Phencyclidine Scrn Not Detected (Not Detect) Ur Amphetamines Screen Not Detected (Not Detect) U Benzodiazepines Scrn Not Detected (Not Detect) Urine Cocaine Screen POSITIVE H (Not Detect) U Marijuana (THC) Screen Not Detected (Not Detect) ECG Data Attestation: I personally reviewed and interpreted this ECG as follows: ECG interpretation date: 11/22/20 ECG interpretation time: 12:56 Interpretation: Normal sinus rhythm, normal AR, normal QRS, normal QTC Discharge Plan Discharge Clinical Impression: Adjustment disorder Qualifiers: Adjustment disorder type: unspecified type Qualified Code(s): F43.20 - Adjustment disorder, unspecified Patient Disposition: Home, Self-Care Instructions: Stress (ED) Additional Instructions: You were seen today by our nephrology social worker. You do have chronic pain which we do not manage in the emergency department. You need to speak to your PCP who manages your medications for management. We will not change your medications in the emergency department. Prescriptions: No Action oxycodone 5 mg capsule 5 mg PO Q8H PRN (Reason: pain) Qty: 15 RF: 0 oxycodone 5 mg capsule 5 mg PO Q8H PRN (Reason: pain) Qty: 10 RF: 0 atorvastatin 10 mg Tablet 10 mg PO BEDTIME RF: 0 amlodipine 2.5 mg Tablet 2.5 mg PO DAILY RF: 0 hydroxyzine HCl 50 mg Tablet 50 mg PO QID PRN (Reason: Anxiety) RF: 0 divalproex 500 mg Tablet,Delayed Release (Dr/Ec) 500 mg PO BID RF: 0 pantoprazole [Protonix] 40 mg Tablet,Delayed Release (Dr/Ec) 40 mg PO DAILY RF: 0 trazodone 300 mg Tablet 300 mg PO BEDTIME PRN (Reason: Sleep) RF: 0 albuterol sulfate [ProAir HFA] 90 mcg/actuation Hfa Aerosol Inhaler 2 puff INHALATION Q6H PRN (Reason: Shortness Of Breath) RF: 0 quetiapine [Seroquel XR] 200 mg Tablet Extended Release 24 Hr 200 mg PO DAILY RF: 0 acetaminophen 325 mg Tablet 650 mg PO Q6H PRN (Reason: Pain, Mild (Pain Scale 1-3)) Qty: 30 RF: 0 cyclobenzaprine 10 mg tablet 10 mg PO TID PRN (Reason: muscle spasm) Qty: 10 RF: 0 amoxicillin-pot clavulanate [Augmentin] 875-125 mg tablet 1 tab PO Q12H 7 Days Qty: 14 RF: 0 fluticasone propionate [Flonase Allergy Relief] 50 mcg/actuation spray,suspension 2 spray intranasal DAILY Qty: 16 RF: 0 dicyclomine 10 mg capsule 10 mg PO TID Qty: 20 RF: 0 Referrals: Physician,Unknown [Primary Care Provider] - 2 days Interventions: ED Discharge Assessment Last Done: 11/22/20 16:55 Discharge Date/Time: 11/22/20 16:55
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
--- NOTE | 2020-11-22 13:54 | PC.NURSE ---
Pt refusing labs. Seen by Care team and plan for discharge after urine obtained per pt request, unk if .
[2020-11-22 15:00] LABS: UPreg QC Valid YES; Urine Pregnancy NEGATIVE (NEGATIVE)
[2020-11-22 15:32] LABS: Amphetamine Screen Urine Not Detected (Not Detect); Barbiturates, Urine Not Detected (Not Detect); Benzodiazepines Screen Urine Not Detected (Not Detect); Cannabinoid Screen Urine Not Detected (Not Detect); Cocaine Screen Urine POSITIVE (Not Detect); Opiate Screen Urine Not Detected (Not Detect); Phencyclidine Screen Urine Not Detected (Not Detect)
[2020-11-22] MEDS: LORazepam 1 MG TABLET PO (15:32)
[2020-11-22 16:00] VITALS: BP 128/75; PULSE 87; RESP 16; O2SAT 100
== END 2020-11-22 16:55 | disposition home or self-care (01) ==
PROVIDERS: Nurse Practitioner Family; Emergency Provider Emergency Medicine Emergency Medical Services
DX: F43.20 Adjustment disorder, unspecified (principal); F14.90 Cocaine use, unspecified, uncomplicated; Z79.899 Other long term (current) drug therapy
CPT/HCPCS: 80307; 81025; 93005; 99283

== ENCOUNTER 2020-11-23 21:46 | Emergency (ER) | payer OTHER, SELFPAY ==
--- NOTE | ~2020-11-23 | XR_ITS ---
EXAMINATION: XR HIP, RIGHT CLINICAL INFORMATION: Fall. Pain. COMPARISON: 09/02/2019 TECHNIQUE: Two views of the right hip. Frontal view of the pelvis. FINDINGS: There is no fracture or dislocation. The femoral heads articulate appropriately with their acetabula. Mild degenerative changes of the hips with small osteophytes present and subchondral sclerosis. Bilateral femoral head avascular necrosis. The pelvic rim is intact. The sacroiliac joints and pubic symphysis are well aligned. The bowel gas pattern is unremarkable. XR/XR hip RT w [id number] IMPRESSION: No acute fracture or malalignment. Mild degenerative changes of the hips. Bilateral femoral head avascular necrosis.
--- NOTE | ~2020-11-23 | CT_ITS ---
EXAMINATIONS: CT HEAD WITHOUT CONTRAST AND CT CERVICAL SPINE WITHOUT CONTRAST CLINICAL INFORMATION: Pain after fall. COMPARISON: November 16, 2020. TECHNIQUE: Contiguous helical images of the brain were obtained without IV contrast. Contiguous helical images of the cervical spine were obtained without IV contrast. Multiplanar reconstructions were performed. DLP: 1096 mGy-cm. FINDINGS: There are no pathologic extra-axial fluid collections. The lateral, third, fourth ventricles are prominent, though stable, and concordant with the appearance of the sulci, though age discordant. There is no evidence for acute intraparenchymal hemorrhage or infarct. There is periventricular low-attenuation indicative of small vessel disease. There is neither mass nor mass effect. There is no shift of midline structures. The paranasal sinuses and mastoid air cells are clear. There are no osseous lesions. The cervical vertebra are in normal alignment. There is disc height loss at C3/C4. Disc heights and vertebral heights are otherwise well-preserved. There are no fractures. There is no prevertebral soft tissue swelling. There is no cervical lymphadenopathy. The visualized lung apices are clear. CT/CT head/brain wo con IMPRESSION: No evidence for acute intracranial injury. Age discordant cerebral atrophy. No evidence for acute injury to the cervical spine. Automated exposure control (Care Dose) Adjustment of the mA and/or kv according to patient size (this includes techniques or standardized protocols for targeted exams where dose is matched to indication / reason for exam; i.e. extremities or head).
--- NOTE | ~2020-11-23 | CT_ITS ---
EXAMINATIONS: CT HEAD WITHOUT CONTRAST AND CT CERVICAL SPINE WITHOUT CONTRAST CLINICAL INFORMATION: Pain after fall. COMPARISON: November 16, 2020. TECHNIQUE: Contiguous helical images of the brain were obtained without IV contrast. Contiguous helical images of the cervical spine were obtained without IV contrast. Multiplanar reconstructions were performed. DLP: 1096 mGy-cm. FINDINGS: There are no pathologic extra-axial fluid collections. The lateral, third, fourth ventricles are prominent, though stable, and concordant with the appearance of the sulci, though age discordant. There is no evidence for acute intraparenchymal hemorrhage or infarct. There is periventricular low-attenuation indicative of small vessel disease. There is neither mass nor mass effect. There is no shift of midline structures. The paranasal sinuses and mastoid air cells are clear. There are no osseous lesions. The cervical vertebra are in normal alignment. There is disc height loss at C3/C4. Disc heights and vertebral heights are otherwise well-preserved. There are no fractures. There is no prevertebral soft tissue swelling. There is no cervical lymphadenopathy. The visualized lung apices are clear. CT/CT cervical spine wo con IMPRESSION: No evidence for acute intracranial injury. Age discordant cerebral atrophy. No evidence for acute injury to the cervical spine. Automated exposure control (Care Dose) Adjustment of the mA and/or kv according to patient size (this includes techniques or standardized protocols for targeted exams where dose is matched to indication / reason for exam; i.e. extremities or head).
--- NOTE | ~2020-11-23 | XR_ITS ---
EXAMINATION: XR SHOULDER, RIGHT CLINICAL INFORMATION: Unable to move arm. Fall with pain COMPARISON: None TECHNIQUE: Three views of the right shoulder. FINDINGS: The bones and soft tissues are normal. No fracture. Glenohumeral and acromioclavicular alignment is anatomic with normal joint space. No abnormal soft tissue calcifications. XR/XR shoulder RT min 2V IMPRESSION: Normal right shoulder.
[2020-11-23 21:53] VITALS: BP 161/108; BP 178/117; PULSE 92; PULSE 94; RESP 18; TEMP 37.4; O2SAT 100; BMI 24.8
--- NOTE | 2020-11-23 22:16 | PC.NURSE ---
pt now denies any feelings of self harm or harm to others. pt states if she feels that way she will notify staff. pt is on the phone with a friend and states she was just upset at the fall and pain she is in.
--- NOTE | 2020-11-23 23:08 | ED_ITS ---
HPI - Fall General Chief Complaint: Fall Stated Complaint: fall Time Seen by Provider: 11/23/20 23:08 Source: patient Mode of arrival: EMS History of Present Illness HPI Narrative: This is a 45-year-old female presenting via EMS for slip and fall on ice outside of [place] shop without head strike or loss of consciousness. This fall was witnessed by a bystander. Patient complaint right upper extremity pain as well as right hip pain and mid back pain. Related Data Home Medications Medication Instructions Recorded Confirmed albuterol sulfate [ProAir HFA] 2 puff INHALATION Q6H PRN 08/21/20 11/24/20 amlodipine 2.5 mg PO DAILY 08/21/20 11/24/20 atorvastatin 10 mg PO BEDTIME 08/21/20 11/24/20 divalproex 500 mg PO BID 08/21/20 11/24/20 hydroxyzine HCl 50 mg PO QID PRN 08/21/20 11/24/20 pantoprazole [Protonix] 40 mg PO DAILY 08/21/20 11/24/20 quetiapine [Seroquel XR] 200 mg PO DAILY 08/21/20 11/24/20 trazodone 300 mg PO BEDTIME PRN 08/21/20 11/24/20 Previous Rx's Medication Instructions Recorded acetaminophen 650 mg PO Q6H PRN #30 tab 08/24/20 oxycodone 5 mg PO Q8H PRN #15 cap 08/31/20 oxycodone 5 mg PO Q8H PRN #10 cap 09/12/20 cyclobenzaprine 10 mg PO TID PRN #10 tab 10/11/20 amoxicillin-pot clavulanate 1 tab PO Q12H 7 Days #14 tab 11/02/20 [Augmentin] fluticasone propionate [Flonase 2 spray INTRANASAL DAILY #16 g 11/02/20 Allergy Relief] dicyclomine 10 mg PO TID #20 cap 11/16/20 Allergies Allergy/AdvReac Type Severity Reaction Status Date / Time Iodinated Contrast Media Allergy Severe ANAPHYLAXIS Verified 11/16/20 12:49 [CONTRAST, IV] ibuprofen [From Motrin] Allergy Intermediate SWELLING Verified 11/16/20 12:49 morphine [MORPHINE] Allergy Intermediate RASH Verified 11/16/20 12:49 acetaminophen [From TYLENOL] Allergy Mild HIVES Verified 11/16/20 12:49 bee pollen [Bee Stings] Allergy Mild UNKNOWN Verified 11/16/20 12:49 coconut Allergy Mild HIVES/SWELL Verified 11/16/20 12:49 ING latex [Latex] Allergy Mild HIVES Verified 11/16/20 12:49 NSAIDS (Non-Steroidal Allergy Mild HIVES Verified 11/16/20 12:49 Anti-Inflamma [NSAIDS (NON-STEROIDAL ANTI-INFLAMMA] aspirin [ASA] Allergy Unknown HIVES Verified 11/16/20 12:49 tramadol [TRAMADOL] Allergy Unknown UNKNOWN Verified 11/16/20 12:49 turkey Allergy Unknown UNKNOWN Verified 11/16/20 12:49 lidocaine Allergy Rash Verified 11/16/20 12:49 From Vicodin Allergy Mild RASH Uncoded 09/12/20 12:37 Review of Systems Review of Systems: Pertinent positives and negatives as stated in HPI 10 point review of systems is otherwise negative. PMFSH Past Medical History Source: nursing notes reviewed Medical History Asthma section wound complication Diabetes Fall GERD (gastroesophageal reflux disease) History of seizure Hypertension Multiple sclerosis Multiple sclerosis exacerbation Surgical History History of left ankle joint replacement History of thoracic surgery Social History Social History Household Members: Family Housing: Other Alcohol intake: never Smoking Status: Current every day smoker Tobacco Type: Cigarette Packs Per Day: 1 Cigarettes Per Day: 20.0 Second Hand Smoke Exposure: Yes Use of substances other than those prescribed or required for medical reasons: Refusing to respond Substance Use Type: Crack/Cocaine Advance Directives: No service: No Current occupational status: unemployed Physical Exam Vital Signs: Vital Signs: Last Vital Signs Temp 99.3 F 11/23/20 21:53 Pulse 92 11/23/20 21:53 Resp 16 11/24/20 02:00 BP 161/108 H 11/23/20 21:53 Pulse Ox 100 11/23/20 21:53 Body Mass Index 24.8 VITAL SIGNS: Reviewed. GENERAL: Well developed, well nourished, moderate distress HEAD: Normocephalic/atraumatic EYES: PERRLA, EOMI intact without pain, no nystagmus NOSE: Nares patent bilateral OROPHARYNX: no oral lesions noted, posterior pharynx clear NECK: Supple, no adenopathy LUNGS: Normal breath sounds. SpO2<100> CARDIOVASCULAR: Regular rate and rhythm without noted murmurs ABDOMEN: Soft, non-tender, non-distended with bowel sounds. Pelvis: Stable, pain on palpation of the right RUE: Pain on passive range of motion at shoulder, elbow, wrist, but otherwise neurovascularly intact although hand pharmacy buyer 4/5 in comparison to left. RLE: No acute deformities, effusions, but strength on plantar/dorsiflexion 4/5 when compared to left, sensation intact as well as strong palpable DP/PT SKIN: Inspection of the skin reveals no rashes NEUROLOGIC: Alert and oriented x 4. Course Course Course Narrative: 45-year-old female with history and clinical presentation consistent with slip and fall onto the right side without head strike or loss of consciousness. Due to patient's pattern pain complaints will evaluate for any acute fractures or dislocations associated with C-spine/head/right upper extremity/pelvis/right lower extremity. Patient has allergies to multiple analgesic options and this will be held at this time until further evaluation. On review of all investigations and re-evaluation there are no acute findings to suggest intracranial pathology, fractures, dislocations, or evidence to suggest MS flare. Patient was then informed of all results and findings and then began stating that she was suicidal and depressed. Patient will be evaluated by N and is further medically cleared for this evaluate. Reevaluation(s) Reevaluation #1: This case and new finding of bilateral avascular necrosis of femoral heads was discussed with Orthopedics, Dr. Bello, who recommends that patient can follow-up with their office and she will be further evaluated and plans regarding outpatient intervention will be discussed at that time. Time: 00:35 Reevaluation #2: Patient evaluated by Behavioral Team and determined to be a safe discharge, but if patient wishes she can go to their ?living room?. She will be provided with a taxi in the morning. Time: 04:00 MDM - Fall Lab Data Result diagrams: 11/23/20 23:19 11/23/20 23:19 Labs: Lab Results 11/23/20 11/23/20 11/23/20 Range/Units 23:19 23:19 23:19 WBC 6.3 (4.8-10.8) X10*3/uL RBC 4.30 (4.20-5.50) X10*6/uL Hgb 11.3 L (12.0-16.0) g/dl Hct 36.5 L (37-47) % MCV 84.9 (80-98) fL MCH 26.3 L (27.0-33.0) pg MCHC 31.0 (31.0-35.0) g/dl RDW 15.8 (11.0-16.0) % Plt Count 222 (160-400) X10*3/uL MPV 11.0 (9.4-12.3) fL Immature Gran % (Auto) 0.2 (0.0-0.4) % Neut % (Auto) 53.4 (45-73) % Lymph % (Auto) 39.7 (20-40) % [place] % (Auto) 6.0 (2-11) % Eos % (Auto) 0.2 (0-4) % Baso % (Auto) 0.5 (0-2) % Lymph # (Auto) 2.5 (1.2-4.9) X10*3/uL [place] # (Auto) 0.4 (0.1-1.2) X10*3/uL Eos # (Auto) 0.0 (0.0-0.4) X10*3/uL Baso # (Auto) 0.0 (0.0-0.2) X10*3/uL Abs Immat Gran (auto) 0.01 (0.00-0.03) X10*3/uL Absolute Neuts (auto) 3.4 (2.0-8.3) X10*3/uL Absolute Nucleated RBC 0.000 (0.0-0.012) X10*3/uL Nucleated RBC % (auto) 0.0 (0.0-0.2) /100WBC ESR 2 (0-20) MM/HR Sodium 139 (135-145) mmol/L Potassium 3.7 (3.3-5.1) mmol/L Chloride 108 (96-108) mmol/L Carbon Dioxide 22 (22-29) mmol/L Anion Gap 13 (12-20) BUN 8 L (9-16) mg/dL Creatinine 0.71 (0.5-1.4) mg/dL Estim Creat Clear Calc 108.1 Estimated GFR > 60 Random Glucose 69 (60-115) mg/dL Calcium 8.9 (8.4-10.2) mg/dL Total Bilirubin 0.5 (0.0-1.0) mg/dL AST 10 (5-31) U/L ALT 7 (0-31) U/L Alkaline Phosphatase 59 (39-117) U/L C-Reactive Protein 0.12 (< or = 0.50) mg/dL Total Protein 7.0 (6.5-8.0) g/dL Albumin 4.2 (3.5-5.0) g/dL Valproic Acid (50.0-100.0) mcg/mL 11/23/20 Range/Units 23:19 WBC (4.8-10.8) X10*3/uL RBC (4.20-5.50) X10*6/uL Hgb (12.0-16.0) g/dl Hct (37-47) % MCV (80-98) fL MCH (27.0-33.0) pg MCHC (31.0-35.0) g/dl RDW (11.0-16.0) % Plt Count (160-400) X10*3/uL MPV (9.4-12.3) fL Immature Gran % (Auto) (0.0-0.4) % Neut % (Auto) (45-73) % Lymph % (Auto) (20-40) % [place] % (Auto) (2-11) % Eos % (Auto) (0-4) % Baso % (Auto) (0-2) % Lymph # (Auto) (1.2-4.9) X10*3/uL [place] # (Auto) (0.1-1.2) X10*3/uL Eos # (Auto) (0.0-0.4) X10*3/uL Baso # (Auto) (0.0-0.2) X10*3/uL Abs Immat Gran (auto) (0.00-0.03) X10*3/uL Absolute Neuts (auto) (2.0-8.3) X10*3/uL Absolute Nucleated RBC (0.0-0.012) X10*3/uL Nucleated RBC % (auto) (0.0-0.2) /100WBC ESR (0-20) MM/HR Sodium (135-145) mmol/L Potassium (3.3-5.1) mmol/L Chloride (96-108) mmol/L Carbon Dioxide (22-29) mmol/L Anion Gap (12-20) BUN (9-16) mg/dL Creatinine (0.5-1.4) mg/dL Estim Creat Clear Calc Estimated GFR Random Glucose (60-115) mg/dL Calcium (8.4-10.2) mg/dL Total Bilirubin (0.0-1.0) mg/dL AST (5-31) U/L ALT (0-31) U/L Alkaline Phosphatase (39-117) U/L C-Reactive Protein (< or = 0.50) mg/dL Total Protein (6.5-8.0) g/dL Albumin (3.5-5.0) g/dL Valproic Acid 17.8 L (50.0-100.0) mcg/mL Discharge Plan Discharge Clinical Impression: Avascular necrosis of bones of both hips Fall Qualifiers: Encounter type: initial encounter Qualified Code(s): W19.XXXA - Unspecified fall, initial encounter Patient Disposition: Home, Self-Care Additional Instructions: Please resume all home medications as prescribed. You have refills of your medications waiting at the pharmacy. Please follow-up with your primary care provider by calling the office in the morning for re-evaluation. Do not hesitate to return to the emergency department should you develop any ac patricia worsening of your symptoms. Prescriptions: No Action oxycodone 5 mg capsule 5 mg PO Q8H PRN (Reason: pain) Qty: 15 RF: 0 oxycodone 5 mg capsule 5 mg PO Q8H PRN (Reason: pain) Qty: 10 RF: 0 atorvastatin 10 mg Tablet 10 mg PO BEDTIME RF: 0 amlodipine 2.5 mg Tablet 2.5 mg PO DAILY RF: 0 hydroxyzine HCl 50 mg Tablet 50 mg PO QID PRN (Reason: Anxiety) RF: 0 divalproex 500 mg Tablet,Delayed Release (Dr/Ec) 500 mg PO BID RF: 0 pantoprazole [Protonix] 40 mg Tablet,Delayed Release (Dr/Ec) 40 mg PO DAILY RF: 0 trazodone 300 mg Tablet 300 mg PO BEDTIME PRN (Reason: Sleep) RF: 0 albuterol sulfate [ProAir HFA] 90 mcg/actuation Hfa Aerosol Inhaler 2 puff INHALATION Q6H PRN (Reason: Shortness Of Breath) RF: 0 quetiapine [Seroquel XR] 200 mg Tablet Extended Release 24 Hr 200 mg PO DAILY RF: 0 acetaminophen 325 mg Tablet 650 mg PO Q6H PRN (Reason: Pain, Mild (Pain Scale 1-3)) Qty: 30 RF: 0 cyclobenzaprine 10 mg tablet 10 mg PO TID PRN (Reason: muscle spasm) Qty: 10 RF: 0 amoxicillin-pot clavulanate [Augmentin] 875-125 mg tablet 1 tab PO Q12H 7 Days Qty: 14 RF: 0 fluticasone propionate [Flonase Allergy Relief] 50 mcg/actuation spray,suspension 2 spray intranasal DAILY Qty: 16 RF: 0 dicyclomine 10 mg capsule 10 mg PO TID Qty: 20 RF: 0 Referrals: Renan Bello MD [Physician] - 2 days (Please evaluate and manage as appropriate patient's recent findings of bilateral femoral head avascular necrosis.)
--- NOTE | 2020-11-23 23:37 | PC.NURSE ---
pt back from ct. teaching on the need to keep the c collar on. more warm blankets given. pt has moments of tearfulness when approaching pt then resolves.
[2020-11-23 23:39] LABS: MANUAL DIFF FLAG NO
[2020-11-23 23:40] LABS: Basophils Percent Auto 0.5 % (0-2); Eosinophils Percent Auto 0.2 % (0-4); Hematocrit 36.5 % (37-47); Hemoglobin 11.3 g/dl (12.0-16.0); Imm Gran Abs Auto 0.01 X10*3/uL (0.00-0.03); Imm Gran Pct Auto 0.2 % (0.0-0.4); Lymphocytes Absolute Auto 2.5 X10*3/uL (1.2-4.9); Lymphocytes Percent Auto 39.7 % (20-40); Mean Corpuscular Hemoglobin 26.3 pg (27.0-33.0); Mean Corpuscular Volume 84.9 fL (80-98); Monocytes Absolute Auto 0.4 X10*3/uL (0.1-1.2); Neutrophils Absolute Auto 3.4 X10*3/uL (2.0-8.3); Neutrophils Percent Auto 53.4 % (45-73); Platelet Count 222 X10*3/uL (160-400); Red Cell Distribution Width 15.8 % (11.0-16.0); White Blood Count 6.3 X10*3/uL (4.8-10.8)
[2020-11-24 00:03] LABS: Alanine Aminotransferase 7 U/L (0-31); Albumin Level 4.2 g/dL (3.5-5.0); Alkaline Phosphatase 59 U/L (39-117); Anion Gap 13 (12-20); Aspartate Amino Transferase 10 U/L (5-31); Bilirubin Total 0.5 mg/dL (0.0-1.0); Blood Urea Nitrogen 8 mg/dL (9-16); C Reactive Protein 0.12 mg/dL (< or = 0.50); Calcium 8.9 mg/dL (8.4-10.2); Carbon Dioxide 22 mmol/L (22-29); Chloride 108 mmol/L (96-108); Creatinine Clr Calc Pharmacy 108.1; Estimated Glomerular Filt Rate > 60; Glucose Random 69 mg/dL (60-115); Potassium 3.7 mmol/L (3.3-5.1); Sodium 139 mmol/L (135-145)
[2020-11-24 00:07] LABS: Valproate 17.8 mcg/mL (50.0-100.0)
[2020-11-24 00:13] LABS: Erythrocyte Sedimentation Rate 2 MM/HR (0-20)
[2020-11-24 02:00] VITALS: RESP 16
--- NOTE | 2020-11-24 02:09 | PC.NURSE ---
PT REPORTS INTERMITTENT SI. NO PLAN DISCLOSED. PATIENT MOVED TO [address] [place] [address]. AWAITING N.
--- NOTE | 2020-11-24 02:17 | PC.NURSE ---
FAXED AND CALLED N. NO CLINICAN AVAILABLE UNTIL TOMORROW. 1;1 AT BEDSIDE. PATIENT SLEEPING.
--- NOTE | 2020-11-24 02:31 | PC.NURSE ---
PER PATIENT NOTHING HAS CHANGED SINCE I WAS LAST HERE. I WANT WATER AND TO SLEEP . MED RECOMPLETED.
--- NOTE | 2020-11-24 03:33 | PC.NURSE ---
bhn at bedside.
--- NOTE | 2020-11-24 04:00 | PC.NURSE ---
Pt cleared by n. Patient to be offered support to be cabbed in am to living room.
--- NOTE | 2020-11-24 04:37 | PC.NURSE ---
contact made to the living room. plan to d/c there at [phone]
--- NOTE | 2020-11-24 04:39 | PC.NURSE ---
per ana chavez) pt to be transported to living room at 7am via cab.
== END 2020-11-24 06:36 | disposition home or self-care (01) ==
PROVIDERS: Emergency Provider Student in an Organized Health Care Education/Training Program
DX: G35 Multiple sclerosis (principal); M90.552 Osteonecrosis in diseases classified elsewhere, left thigh; M90.551 Osteonecrosis in diseases classified elsewhere, right thigh; G89.11 Acute pain due to trauma; M25.511 Pain in right shoulder; M25.521 Pain in right elbow; M25.531 Pain in right wrist; M54.5 Low back pain; Z91.81 History of falling; E11.9 Type 2 diabetes mellitus without complications; I10 Essential (primary) hypertension; F17.210 Nicotine dependence, cigarettes, uncomplicated
CPT/HCPCS: 36415; 70450; 72125; 73030; 73502; 80053; 80164; 85025; 85652; 86140; 99284

== ENCOUNTER 2020-12-07 00:29 | Emergency (ER) | payer OTHER, SELFPAY ==
[2020-12-07 00:33] VITALS: BP 138/92; BP 148/96; PULSE 100; PULSE 85; RESP 16; O2SAT 97; O2SAT 98; BMI 24.8
--- NOTE | 2020-12-07 00:36 | ED_ITS ---
HPI - Psych General Chief Complaint: Psychiatric Symptoms Stated Complaint: SI/HI,W/RELAPSE OF PCP,CRACK,ETOH USE,?MS FLARE Time Seen by Provider: 12/07/20 00:36 Source: patient Mode of arrival: ambulatory Limitations: no limitations History of Present Illness HPI Narrative: Patient's history of substance abuse was sober for few months started using cocaine for last 2 weeks also patient used PCP and had few drinks patient was at [facility] last week for depression patient is well- known to us comes here multiple times history is not reliable as in the past patient states that she took 23 tablets of 300 mg gabapentin 1 hour prior to arrival, no empty bottle was seen next to her MD complaint: suicidal ideation and feels depressed Onset (ago): day(s) Duration: constant History of same: Yes Relieving factors: none Exacerbating factors: none Context: recent alcohol abuse and recent drug abuse Associated psychiatric symptoms: depression and suicidal ideation Associated symptoms: denies other symptoms Treatments prior to arrival: none Related Data Home Medications Medication Instructions Recorded Confirmed albuterol sulfate [ProAir HFA] 2 puff INHALATION Q6H PRN 08/21/20 11/24/20 amlodipine 2.5 mg PO DAILY 08/21/20 11/24/20 atorvastatin 10 mg PO BEDTIME 08/21/20 11/24/20 divalproex 500 mg PO BID 08/21/20 11/24/20 hydroxyzine HCl 50 mg PO QID PRN 08/21/20 11/24/20 pantoprazole [Protonix] 40 mg PO DAILY 08/21/20 11/24/20 quetiapine [Seroquel XR] 200 mg PO DAILY 08/21/20 11/24/20 trazodone 300 mg PO BEDTIME PRN 08/21/20 11/24/20 Previous Rx's Medication Instructions Recorded acetaminophen 650 mg PO Q6H PRN #30 tab 08/24/20 oxycodone 5 mg PO Q8H PRN #15 cap 08/31/20 oxycodone 5 mg PO Q8H PRN #10 cap 09/12/20 cyclobenzaprine 10 mg PO TID PRN #10 tab 10/11/20 amoxicillin-pot clavulanate 1 tab PO Q12H 7 Days #14 tab 11/02/20 [Augmentin] fluticasone propionate [Flonase 2 spray INTRANASAL DAILY #16 g 11/02/20 Allergy Relief] dicyclomine 10 mg PO TID #20 cap 11/16/20 Allergies Allergy/AdvReac Type Severity Reaction Status Date / Time Iodinated Contrast Media Allergy Severe ANAPHYLAXIS Verified 12/07/20 00:44 [CONTRAST, IV] ibuprofen [From Motrin] Allergy Intermediate SWELLING Verified 12/07/20 00:44 morphine [MORPHINE] Allergy Intermediate RASH Verified 12/07/20 00:44 acetaminophen [From TYLENOL] Allergy Mild HIVES Verified 12/07/20 00:44 bee pollen [Bee Stings] Allergy Mild UNKNOWN Verified 12/07/20 00:44 coconut Allergy Mild HIVES/SWELL Verified 12/07/20 00:44 ING latex [Latex] Allergy Mild HIVES Verified 12/07/20 00:44 NSAIDS (Non-Steroidal Allergy Mild HIVES Verified 12/07/20 00:44 Anti-Inflamma [NSAIDS (NON-STEROIDAL ANTI-INFLAMMA] aspirin [ASA] Allergy Unknown HIVES Verified 12/07/20 00:44 tramadol [TRAMADOL] Allergy Unknown UNKNOWN Verified 12/07/20 00:44 turkey Allergy Unknown UNKNOWN Verified 12/07/20 00:44 lidocaine Allergy Rash Verified 12/07/20 00:44 From Vicodin Allergy Mild RASH Uncoded 09/12/20 12:37 Review of Systems Review of Systems: Constitutional : No Fever, No Chills ENT/Mouth : No Ear Pain, No Nasal Congestion, No sore throat Eyes: No Eye Pain, No Swelling, No Redness Cardiovascular : No Chest Pain, No SOB Respiratory : No Cough, No Sputum, No Dyspnea Gastrointestinal : No Nausea, No Vomiting, No Diarrhea, No Hematochezia, No Melena Genitourinary : No Dysuria, No Urinary Frequency, No Hematuria Musculoskeletal : No Myalgias Skin : No Skin Lesions, No rash Neuro : Chronic leg Weakness ++, No Numbness, No Paresthesias, No Dizziness, No Headache Psych : positive Anxiety, positive Depression, positive SI Heme/Lymph: No Lymphadenopathy Endocrine : No Polyuria, No Polydipsia PMFSH Past Medical History Medical History Asthma section wound complication Diabetes Fall GERD (gastroesophageal reflux disease) History of seizure Hypertension Multiple sclerosis Multiple sclerosis exacerbation Surgical History History of left ankle joint replacement History of thoracic surgery Social History Social History Household Members: Family Housing: Other Alcohol intake: never Smoking Status: Current every day smoker Tobacco Type: Cigarette Packs Per Day: 1 Cigarettes Per Day: 20.0 Second Hand Smoke Exposure: Yes Substance Use Type: Crack/Cocaine Advance Directives: No Advance Directives Information Provided: No service: No Current occupational status: unemployed Physical Exam Vital Signs: Vital Signs: Last Vital Signs Pulse 85 12/07/20 00:33 Resp 16 12/07/20 00:33 BP 138/92 H 12/07/20 00:33 Pulse Ox 97 12/07/20 00:33 Body Mass Index 24.8 Const: General: comfortable and no acute distress Orientation/consciousness: patient oriented x3 HENMT: Head: Yes normocephalic and Yes atraumatic Eyes: General: appearance normal, both eyes and all related structures Neck: Neck: Yes normal visual inspection and Yes full ROM Chest: Chest palpation & inspection: normal palpation of entire chest wall Resp: Effort & Inspection: normal respiratory effort Auscultation: clear to auscultation bilaterally, no crackles and no rales Cardio: Palpation: normal PMI Rhythm: regular rhythm Heart sounds: S1 normal heart sound present and S2 normal heart sound present Peripheral pulses: Peripheral pulses 2+ throughout GI: Inspection: Yes normal to inspection Palpation (GI): Soft to palpation and nontender Auscultation: normal bowel sounds : General: Yes no CVA tenderness Back/Spine/Pelvis: Back: no CVA tenderness Thoracic/Lumbar Spine: thoracic and lumbar spine normal to inspection Skin: General skin exam: no rashes or lesions noted Neuro: Other: Residual chronic lower extremity weakness General: patient oriented x3 and moves all extremities Extrem: General: Yes normal to inspection and No full ROM (Chronic leg weakness) Psych: Appearance: grossly normal Mental Status: mental status grossly normal Speech and movement: Normal speech and movement present Affect: Sad affect present Attitude: cooperative Thought process: Normal thought process present Thought content: suicidality, no homicidality and Depressive thoughts present Insight: Fair insight present (Psych) Judgement: Fair judgement present (Psych) MDM - Psych MDM Narrative Medical decision making narrative: Patient with long history of substance abuse comes to hospital multiple times with different reasons was just seen at [facility], been here 2 times last month patient was given charcoal for possible gabapentin overdose. Labs are stable, will get therapist consult Differential Diagnosis Differential diagnosis: Likely depression and substance abuse Medical Records Attestation: I reviewed the patient's medical records. Lab Data Attestation: I reviewed the patient's lab results. Result diagrams: 12/07/20 01:09 12/07/20 01:09 Labs: Lab Results 12/07/20 12/07/20 12/07/20 Range/Units 01:09 01:09 01:09 WBC 6.3 (4.8-10.8) X10*3/uL RBC 4.02 L (4.20-5.50) X10*6/uL Hgb 10.8 L (12.0-16.0) g/dl Hct 34.0 L (37-47) % MCV 84.6 (80-98) fL MCH 26.9 L (27.0-33.0) pg MCHC 31.8 (31.0-35.0) g/dl RDW 16.0 (11.0-16.0) % Plt Count 327 D (160-400) X10*3/uL MPV 11.4 (9.4-12.3) fL Immature Gran % (Auto) 0.5 H (0.0-0.4) % Neut % (Auto) 51.0 (45-73) % Lymph % (Auto) 39.9 (20-40) % [place] % (Auto) 6.9 (2-11) % Eos % (Auto) 1.1 (0-4) % Baso % (Auto) 0.6 (0-2) % Lymph # (Auto) 2.5 (1.2-4.9) X10*3/uL [place] # (Auto) 0.4 (0.1-1.2) X10*3/uL Eos # (Auto) 0.1 (0.0-0.4) X10*3/uL Baso # (Auto) 0.0 (0.0-0.2) X10*3/uL Abs Immat Gran (auto) 0.03 (0.00-0.03) X10*3/uL Absolute Neuts (auto) 3.2 (2.0-8.3) X10*3/uL Absolute Nucleated RBC 0.000 (0.0-0.012) X10*3/uL Nucleated RBC % (auto) 0.0 (0.0-0.2) /100WBC Sodium 140 (135-145) mmol/L Potassium 4.1 (3.3-5.1) mmol/L Chloride 110 H (96-108) mmol/L Carbon Dioxide 24 (22-29) mmol/L Anion Gap 10 L (12-20) BUN 14 D (9-16) mg/dL Creatinine 0.81 (0.5-1.4) mg/dL Estim Creat Clear Calc 94.8 Estimated GFR > 60 Random Glucose 100 D (60-115) mg/dL Calcium 9.0 (8.4-10.2) mg/dL Total Bilirubin < 0.2 (0.0-1.0) mg/dL Direct Bilirubin < 0.2 (0.0-0.5) mg/dL AST 9 (5-31) U/L ALT 7 (0-31) U/L Alkaline Phosphatase 69 (39-117) U/L Total Protein 6.8 (6.5-8.0) g/dL Albumin 4.0 (3.5-5.0) g/dL Salicylates < 5.0 L (15-30) mg/dL Acetaminophen < 1 (<30) mcg/mL Ethyl Alcohol < 10 mg/dL ECG Data Attestation: I personally reviewed and interpreted this ECG as follows: Interpretation: Normal sinus rhythm LVH nonspecific ST T wave changes normal intervals normal axis impression no acute ischemia Discharge Plan Discharge Clinical Impression: Substance abuse Depression Qualifiers: Depression Type: major depressive disorder Major depression recurrence: recurrent Active/Remission status: currently active Major depression episode severity: moderate Qualified Code(s): F33.1 - Major depressive disorder, recurrent, moderate Prescriptions: No Action oxycodone 5 mg capsule 5 mg PO Q8H PRN (Reason: pain) Qty: 15 RF: 0 oxycodone 5 mg capsule 5 mg PO Q8H PRN (Reason: pain) Qty: 10 RF: 0 atorvastatin 10 mg Tablet 10 mg PO BEDTIME RF: 0 amlodipine 2.5 mg Tablet 2.5 mg PO DAILY RF: 0 hydroxyzine HCl 50 mg Tablet 50 mg PO QID PRN (Reason: Anxiety) RF: 0 divalproex 500 mg Tablet,Delayed Release (Dr/Ec) 500 mg PO BID RF: 0 pantoprazole [Protonix] 40 mg Tablet,Delayed Release (Dr/Ec) 40 mg PO DAILY RF: 0 trazodone 300 mg Tablet 300 mg PO BEDTIME PRN (Reason: Sleep) RF: 0 albuterol sulfate [ProAir HFA] 90 mcg/actuation Hfa Aerosol Inhaler 2 puff INHALATION Q6H PRN (Reason: Shortness Of Breath) RF: 0 quetiapine [Seroquel XR] 200 mg Tablet Extended Release 24 Hr 200 mg PO DAILY RF: 0 acetaminophen 325 mg Tablet 650 mg PO Q6H PRN (Reason: Pain, Mild (Pain Scale 1-3)) Qty: 30 RF: 0 cyclobenzaprine 10 mg tablet 10 mg PO TID PRN (Reason: muscle spasm) Qty: 10 RF: 0 amoxicillin-pot clavulanate [Augmentin] 875-125 mg tablet 1 tab PO Q12H 7 Days Qty: 14 RF: 0 fluticasone propionate [Flonase Allergy Relief] 50 mcg/actuation spray,suspension 2 spray intranasal DAILY Qty: 16 RF: 0 dicyclomine 10 mg capsule 10 mg PO TID Qty: 20 RF: 0
--- NOTE | 2020-12-07 00:48 | ECG_ITS ---
Test Reason : OVERDOSE Blood Pressure : / mmHG Vent. Rate : 078 BPM Atrial Rate : 078 BPM P-R Int : 166 ms QRS Dur : 088 ms QT Int : 382 ms P-R-T Axes : 049 -16 022 degrees QTc Int : 435 ms Normal sinus rhythm Minimal voltage criteria for LVH, may be normal variant Nonspecific T wave abnormality Abnormal ECG When compared with ECG of 22-NOV-2020 12:56, QT has lengthened Referred By: Guanakito Shaw Electronically Signed By:DAVIN BLAKE
[2020-12-07] MEDS: Activated charcoaL 50 GM/240 ML ORAL.SUSP PO (01:09)
[2020-12-07 01:15] LABS: MANUAL DIFF FLAG NO
[2020-12-07 01:16] LABS: Basophils Percent Auto 0.6 % (0-2); Eosinophils Absolute Auto 0.1 X10*3/uL (0.0-0.4); Eosinophils Percent Auto 1.1 % (0-4); Hemoglobin 10.8 g/dl (12.0-16.0); Imm Gran Abs Auto 0.03 X10*3/uL (0.00-0.03); Imm Gran Pct Auto 0.5 % (0.0-0.4); Lymphocytes Absolute Auto 2.5 X10*3/uL (1.2-4.9); Lymphocytes Percent Auto 39.9 % (20-40); Mean Corpuscular HGB Conc 31.8 g/dl (31.0-35.0); Mean Corpuscular Hemoglobin 26.9 pg (27.0-33.0); Mean Corpuscular Volume 84.6 fL (80-98); Mean Platelet Volume 11.4 fL (9.4-12.3); Monocytes Absolute Auto 0.4 X10*3/uL (0.1-1.2); Monocytes Percent Auto 6.9 % (2-11); Neutrophils Absolute Auto 3.2 X10*3/uL (2.0-8.3); Platelet Count 327 X10*3/uL (160-400); Red Blood Count 4.02 X10*6/uL (4.20-5.50); White Blood Count 6.3 X10*3/uL (4.8-10.8)
--- NOTE | 2020-12-07 01:32 | PC.NURSE ---
AFTER 3 SIPS PATIENT BEGAN REFUSING TO DRINK CHARCOAL. SET UP TO PLACE NG TUBE WITH STAFF PRESENT FOR ASSISTANCE. PATIENT BEGAN FIGHTING THIS NURSE WHEN MEASURING FOR NG TUBE PLACEMENT. REMINDED PATIENT THAT HER CHOICES WERE TO DRINK THE CHARCOAL OR AN NGTUBE WOULD NEED TO BE PLACED. PATIENT WAS THEN WILLING TO DRINK CHARCOAL. NEEDED TO KEEP WAKING PATIENT UP TO KEEP DRINKING SHE SCREAMED AT THIS NURSE GIVE ME A MINUTE . REMINDED AGAIN OF HER OPTIONS. PATIENT FINISHED DRINKING CHARCOAL.
[2020-12-07 01:40] LABS: Ethanol < 10 mg/dL
[2020-12-07 01:45] LABS: Acetaminophen LAB < 1 mcg/mL (<30); Alanine Aminotransferase 7 U/L (0-31); Alkaline Phosphatase 69 U/L (39-117); Anion Gap 10 (12-20); Aspartate Amino Transferase 9 U/L (5-31); Bilirubin Direct < 0.2 mg/dL (0.0-0.5); Bilirubin Total < 0.2 mg/dL (0.0-1.0); Blood Urea Nitrogen 14 mg/dL (9-16); Carbon Dioxide 24 mmol/L (22-29); Chloride 110 mmol/L (96-108); Creatinine Clr Calc Pharmacy 94.8; Estimated Glomerular Filt Rate > 60; Glucose Random 100 mg/dL (60-115); Potassium 4.1 mmol/L (3.3-5.1); Salicylate < 5.0 mg/dL (15-30); Sodium 140 mmol/L (135-145); Total Protein 6.8 g/dL (6.5-8.0)
[2020-12-07 02:35] VITALS: BP 136/88; PULSE 87; RESP 16
--- NOTE | 2020-12-07 02:59 | PC.NURSE ---
FAXED TO [facility]. SPOKE WITH TALIA.
[2020-12-07 04:00] VITALS: BP 105/60; PULSE 84; RESP 18; O2SAT 98
[2020-12-07 06:00] VITALS: BP 115/80; PULSE 94; RESP 18; TEMP 36.4; O2SAT 98
--- NOTE | 2020-12-07 09:25 | PC.NURSE ---
sitting in recliner,sleeping at present. Awaiting n.
== END 2020-12-07 12:50 | disposition home or self-care (01) ==
PROVIDERS: Emergency Provider Internal Medicine
DX: F14.10 Cocaine abuse, uncomplicated (principal); F33.1 Major depressive disorder, recurrent, moderate; R45.851 Suicidal ideations; E11.9 Type 2 diabetes mellitus without complications; I10 Essential (primary) hypertension; G35 Multiple sclerosis; J45.909 Unspecified asthma, uncomplicated; F17.210 Nicotine dependence, cigarettes, uncomplicated; Z79.899 Other long term (current) drug therapy
CPT/HCPCS: 36415; 80048; 80076; 80143; 80179; 80320; 85025; 93005; 99283; 99284

== ENCOUNTER 2021-03-16 18:05 | Emergency (ER) | payer OTHER, SELFPAY ==
[2021-03-16 18:13] VITALS: BP 147/80; PULSE 84; RESP 18; TEMP 37; O2SAT 100; BMI 29.8
--- NOTE | 2021-03-16 20:07 | PC.NURSE ---
Patient keeps ringing the call medley and stating the doctor hasn't been in to see her. She states that she is scared and cant see. I explained that she saw me when I walk in the room and she stated that her vision was blurry. I explained that an MD would be in as soon as they are available to see her
[2021-03-16 20:19] VITALS: BP 99/73; PULSE 82; RESP 20; TEMP 36.7; O2SAT 98
[2021-03-16 20:38] LABS: MANUAL DIFF FLAG NO
[2021-03-16 20:42] LABS: Basophils Absolute Auto 0.1 X10*3/uL (0.0-0.2); Basophils Percent Auto 0.8 % (0-2); Eosinophils Absolute Auto 0.1 X10*3/uL (0.0-0.4); Eosinophils Percent Auto 1.9 % (0-4); Hematocrit 34.4 % (37-47); Imm Gran Abs Auto 0.02 X10*3/uL (0.00-0.03); Imm Gran Pct Auto 0.3 % (0.0-0.4); Lymphocytes Percent Auto 50.7 % (20-40); Mean Corpuscular Volume 84.3 fL (80-98); Monocytes Absolute Auto 0.4 X10*3/uL (0.1-1.2); Monocytes Percent Auto 6.8 % (2-11); Neutrophils Absolute Auto 2.3 X10*3/uL (2.0-8.3); Neutrophils Percent Auto 39.5 % (45-73); Platelet Count 255 X10*3/uL (160-400); Red Blood Count 4.08 X10*6/uL (4.20-5.50); Red Cell Distribution Width 17.1 % (11.0-16.0); White Blood Count 5.9 X10*3/uL (4.8-10.8)
[2021-03-16 20:56] LABS: Glucose, Whole Blood 102 mg/dL (60-115)
--- NOTE | 2021-03-16 21:00 | PC.NURSE ---
Provider at bedside for evaluation. Patient's blood sugar of 102 and physician prescribing avitan to decrease her anxiety
[2021-03-16 21:29] LABS: Anion Gap 9 (12-20); Blood Urea Nitrogen 15 mg/dL (9-16); Calcium 9.2 mg/dL (8.4-10.2); Carbon Dioxide 26 mmol/L (22-29); Chloride 111 mmol/L (96-108); Creatinine Clr Calc Pharmacy 117.8; Estimated Glomerular Filt Rate > 60; Glucose Random 114 mg/dL (60-115); Potassium 3.7 mmol/L (3.3-5.1); Sodium 142 mmol/L (135-145)
[2021-03-16] MEDS: LORazepam 1 MG TABLET 2 MG PO (21:31)
[2021-03-16 21:47] LABS: Erythrocyte Sedimentation Rate 4 MM/HR (0-20)
--- NOTE | 2021-03-16 22:23 | ED_ITS ---
HPI - Eye Problem General Chief complaint: Eye Problems Stated complaint: blurred vision Time Seen by Provider: 03/16/21 21:05 Source: patient Mode of arrival: ambulatory Limitations: no limitations History of Present Illness HPI Narrative: Patient with history of chronic MS not on any medication, bipolar disorder, conversion disorder, PTSD, asthma and seizures came here complaining of blurred vision from both eyes since yesterday evening with leg spasm thinking that patient that she might have MS flare-up which has not happened in many years later she said she is very anxious and has some social issues and has no way to go to [place] which she wants to go. Patient has done like this in the past with conversion disorder with anxiety Related Data Home Medications Medication Instructions Recorded Confirmed albuterol sulfate [ProAir HFA] 2 puff INHALATION Q6H PRN 08/21/20 11/24/20 amlodipine 2.5 mg PO DAILY 08/21/20 11/24/20 atorvastatin 10 mg PO BEDTIME 08/21/20 11/24/20 divalproex 500 mg PO BID 08/21/20 11/24/20 hydroxyzine HCl 50 mg PO QID PRN 08/21/20 11/24/20 pantoprazole [Protonix] 40 mg PO DAILY 08/21/20 11/24/20 quetiapine [Seroquel XR] 200 mg PO DAILY 08/21/20 11/24/20 trazodone 300 mg PO BEDTIME PRN 08/21/20 11/24/20 Previous Rx's Medication Instructions Recorded acetaminophen 650 mg PO Q6H PRN #30 tab 08/24/20 oxycodone 5 mg PO Q8H PRN #15 cap 08/31/20 oxycodone 5 mg PO Q8H PRN #10 cap 09/12/20 cyclobenzaprine 10 mg PO TID PRN #10 tab 10/11/20 amoxicillin-pot clavulanate 1 tab PO Q12H 7 Days #14 tab 11/02/20 [Augmentin] fluticasone propionate [Flonase 2 spray INTRANASAL DAILY #16 g 11/02/20 Allergy Relief] dicyclomine 10 mg PO TID #20 cap 11/16/20 Allergies Allergy/AdvReac Type Severity Reaction Status Date / Time Iodinated Contrast Media Allergy Severe ANAPHYLAXIS Verified 12/07/20 00:44 [CONTRAST, IV] ibuprofen [From Motrin] Allergy Intermediate SWELLING Verified 12/07/20 00:44 morphine [MORPHINE] Allergy Intermediate RASH Verified 12/07/20 00:44 acetaminophen [From TYLENOL] Allergy Mild HIVES Verified 12/07/20 00:44 bee pollen [Bee Stings] Allergy Mild UNKNOWN Verified 12/07/20 00:44 coconut Allergy Mild HIVES/SWELL Verified 12/07/20 00:44 ING latex [Latex] Allergy Mild HIVES Verified 12/07/20 00:44 NSAIDS (Non-Steroidal Allergy Mild HIVES Verified 12/07/20 00:44 Anti-Inflamma [NSAIDS (NON-STEROIDAL ANTI-INFLAMMA] aspirin [ASA] Allergy Unknown HIVES Verified 12/07/20 00:44 tramadol [TRAMADOL] Allergy Unknown UNKNOWN Verified 12/07/20 00:44 turkey Allergy Unknown UNKNOWN Verified 12/07/20 00:44 lidocaine Allergy Rash Verified 12/07/20 00:44 From Vicodin Allergy Mild RASH Uncoded 09/12/20 12:37 Review of Systems Review of Systems: Yes all other systems are reviewed and are negative [facility] Past Medical History Medical History Asthma section wound complication Diabetes Fall GERD (gastroesophageal reflux disease) History of seizure Hypertension Multiple sclerosis Multiple sclerosis exacerbation Surgical History History of left ankle joint replacement History of thoracic surgery Social History Social History Household Members: Family Housing: Other Do you presently have visiting nurse or other home services: No (currently living in a hotel) Alcohol intake: current Alcohol intake frequency: other Cigarette Packs Per Day: 1 Cigarettes Per Day: 20.0 Smoked in Last 30 Days: No Second Hand Smoke Exposure: Yes Substance Use Type: Crack/Cocaine Advance Directives: No Patient : No service: No Current occupational status: unemployed Physical Exam Vital Signs: Vital Signs: Last Vital Signs Temp 98.0 F 03/16/21 20:19 Pulse 82 03/16/21 20:19 Resp 20 03/16/21 20:19 BP 99/73 03/16/21 20:19 Pulse Ox 98 03/16/21 20:19 Body Mass Index 29.8 Appearance: Alert. Oriented X3. No acute distress. Anxious Eyes: PERRLA, No Nystagmus no dysconjugate eye movement ENT: Pharynx normal. Oral Mucosa moist Neck: Normal inspection. Neck supple. CVS: Normal heart rate and rhythm. Pulses normal. Respiratory: No respiratory distress. Equal air entry bilateral, no wheezing/rales/rhonchi Abdomen: Soft and nontender. Bowel sounds are present, no mass palpable, no CVA tenderness Skin: Skin warm and dry. Normal skin color. Normal skin turgor. Extremities: No lower extremity edema. No calf tenderness Neuro: Oriented X 3. No motor deficit. No sensory deficit.No cerebellar signs , cranial nerves II-XII intact MDM - Eye Problem MDM Narrative Medical decision making narrative: Patient says that she has blurred vision with pinhole exam she could see very well. Likely either she has a conversion disorder/refractory disorder. Lab Data Result diagrams: 03/16/21 20:31 03/16/21 20:31 Labs: Lab Results 03/16/21 03/16/21 03/16/21 Range/Units 20:31 20:31 20:31 WBC 5.9 (4.8-10.8) X10*3/uL RBC 4.08 L (4.20-5.50) X10*6/uL Hgb 11.0 L (12.0-16.0) g/dl Hct 34.4 L (37-47) % MCV 84.3 (80-98) fL MCH 27.0 (27.0-33.0) pg MCHC 32.0 (31.0-35.0) g/dl RDW 17.1 H (11.0-16.0) % Plt Count 255 (160-400) X10*3/uL MPV 11.0 (9.4-12.3) fL Immature Gran % (Auto) 0.3 (0.0-0.4) % Neut % (Auto) 39.5 L (45-73) % Lymph % (Auto) 50.7 H (20-40) % [place] % (Auto) 6.8 (2-11) % Eos % (Auto) 1.9 (0-4) % Baso % (Auto) 0.8 (0-2) % Lymph # (Auto) 3.0 (1.2-4.9) X10*3/uL [place] # (Auto) 0.4 (0.1-1.2) X10*3/uL Eos # (Auto) 0.1 (0.0-0.4) X10*3/uL Baso # (Auto) 0.1 (0.0-0.2) X10*3/uL Abs Immat Gran (auto) 0.02 (0.00-0.03) X10*3/uL Absolute Neuts (auto) 2.3 (2.0-8.3) X10*3/uL Absolute Nucleated RBC 0.000 (0.0-0.012) X10*3/uL Nucleated RBC % (auto) 0.0 (0.0-0.2) /100WBC ESR 4 (0-20) MM/HR Sodium 142 (135-145) mmol/L Potassium 3.7 (3.3-5.1) mmol/L Chloride 111 H (96-108) mmol/L Carbon Dioxide 26 (22-29) mmol/L Anion Gap 9 L (12-20) BUN 15 (9-16) mg/dL Creatinine 0.75 (0.5-1.4) mg/dL Estim Creat Clear Calc 117.8 Estimated GFR > 60 POC Glucose (60-115) mg/dL Random Glucose 114 (60-115) mg/dL Calcium 9.2 (8.4-10.2) mg/dL /05/29 Range/Units 20:52 WBC (4.8-10.8) X10*3/uL RBC (4.20-5.50) X10*6/uL Hgb (12.0-16.0) g/dl Hct (37-47) % MCV (80-98) fL MCH (27.0-33.0) pg MCHC (31.0-35.0) g/dl RDW (11.0-16.0) % Plt Count (160-400) X10*3/uL MPV (9.4-12.3) fL Immature Gran % (Auto) (0.0-0.4) % Neut % (Auto) (45-73) % Lymph % (Auto) (20-40) % [place] % (Auto) (2-11) % Eos % (Auto) (0-4) % Baso % (Auto) (0-2) % Lymph # (Auto) (1.2-4.9) X10*3/uL [place] # (Auto) (0.1-1.2) X10*3/uL Eos # (Auto) (0.0-0.4) X10*3/uL Baso # (Auto) (0.0-0.2) X10*3/uL Abs Immat Gran (auto) (0.00-0.03) X10*3/uL Absolute Neuts (auto) (2.0-8.3) X10*3/uL Absolute Nucleated RBC (0.0-0.012) X10*3/uL Nucleated RBC % (auto) (0.0-0.2) /100WBC ESR (0-20) MM/HR Sodium (135-145) mmol/L Potassium (3.3-5.1) mmol/L Chloride (96-108) mmol/L Carbon Dioxide (22-29) mmol/L Anion Gap (12-20) BUN (9-16) mg/dL Creatinine (0.5-1.4) mg/dL Estim Creat Clear Calc Estimated GFR POC Glucose 102 (60-115) mg/dL Random Glucose (60-115) mg/dL Calcium (8.4-10.2) mg/dL Discharge Plan Discharge Clinical Impression: Weakness Patient Disposition: Home, Self-Care Instructions: Weakness (ED), Blurred Vision (ED), Anxiety (ED) Additional Instructions: Follow-up with your PCP/neurologist your symptoms unlikely from MS Prescriptions: No Action oxycodone 5 mg capsule 5 mg PO Q8H PRN (Reason: pain) Qty: 15 RF: 0 oxycodone 5 mg capsule 5 mg PO Q8H PRN (Reason: pain) Qty: 10 RF: 0 atorvastatin 10 mg Tablet 10 mg PO BEDTIME RF: 0 amlodipine 2.5 mg Tablet 2.5 mg PO DAILY RF: 0 hydroxyzine HCl 50 mg Tablet 50 mg PO QID PRN (Reason: Anxiety) RF: 0 divalproex 500 mg Tablet,Delayed Release (Dr/Ec) 500 mg PO BID RF: 0 pantoprazole [Protonix] 40 mg Tablet,Delayed Release (Dr/Ec) 40 mg PO DAILY RF: 0 trazodone 300 mg Tablet 300 mg PO BEDTIME PRN (Reason: Sleep) RF: 0 albuterol sulfate [ProAir HFA] 90 mcg/actuation Hfa Aerosol Inhaler 2 puff INHALATION Q6H PRN (Reason: Shortness Of Breath) RF: 0 quetiapine [Seroquel XR] 200 mg Tablet Extended Release 24 Hr 200 mg PO DAILY RF: 0 acetaminophen 325 mg Tablet 650 mg PO Q6H PRN (Reason: Pain, Mild (Pain Scale 1-3)) Qty: 30 RF: 0 cyclobenzaprine 10 mg tablet 10 mg PO TID PRN (Reason: muscle spasm) Qty: 10 RF: 0 amoxicillin-pot clavulanate [Augmentin] 875-125 mg tablet 1 tab PO Q12H 7 Days Qty: 14 RF: 0 fluticasone propionate [Flonase Allergy Relief] 50 mcg/actuation spray,suspension 2 spray intranasal DAILY Qty: 16 RF: 0 dicyclomine 10 mg capsule 10 mg PO TID Qty: 20 RF: 0
--- NOTE | 2021-03-16 22:43 | PC.NURSE ---
Patient is refusing to be discharged and states she is afraid to walk out of her. Medically she is cleared for discharge. Patient states she lives in [place] which is not true according to patients mother. This telegraphic typewriter repairer called the patient's mother to attempt to find her a ride home. Patients mother stated she was unable to provide transportation home. I explained that patient was being discharged from the hospital and stated that she lived in [place] and was in town for her father's . Her mother stated that patient's father was very much alive and that what she told us was not true. This telegraphic typewriter repairer informed the doctor and the charge nurse.
== END 2021-03-16 23:26 | disposition home or self-care (01) ==
PROVIDERS: Emergency Provider Internal Medicine
DX: R53.1 Weakness (principal); H53.8 Other visual disturbances; F41.9 Anxiety disorder, unspecified; E11.9 Type 2 diabetes mellitus without complications; G35 Multiple sclerosis
CPT/HCPCS: 36415; 80048; 82947; 85025; 85652; 99283; 99284

== ENCOUNTER 2021-03-16 23:23 | Emergency (ER) | payer OTHER, SELFPAY ==
[2021-03-16 23:30] VITALS: BMI 29.8
[2021-03-17] VITALS: BP 141/78; PULSE 84; RESP 16; TEMP 35.7; O2SAT 97
[2021-03-17 00:30] VITALS: BP 110/70; PULSE 80; RESP 16; TEMP 35.8; O2SAT 98
--- NOTE | 2021-03-17 00:31 | PC.NURSE ---
RESTING ON RECLINER NO DISTRESS NOTED, AWAITING TO BE SEEN BY MD ED PROVIDER. NO DISTRESS NOTED. PATIENT REQUESTING TO SLEEP AT THIS TIME.
--- NOTE | 2021-03-17 00:48 | ED_ITS ---
HPI - Psych General Chief Complaint: General Medical Stated Complaint: Crisis Time Seen by Provider: 03/17/21 00:27 Source: patient Mode of arrival: ambulatory History of Present Illness HPI Narrative: This is a 45-year-old female who was evaluated in the ED earlier in the evening for blurry vision, had a complete workup, and was medically cleared for discharge, however she was declining to leave the property and had to be escorted out by security. She then signed back in stating that she was unable to get a ride home and denies suicidal or homicidal ideation. Related Data Home Medications Medication Instructions Recorded Confirmed albuterol sulfate [ProAir HFA] 2 puff INHALATION Q6H PRN 08/21/20 11/24/20 amlodipine 2.5 mg PO DAILY 08/21/20 11/24/20 atorvastatin 10 mg PO BEDTIME 08/21/20 11/24/20 divalproex 500 mg PO BID 08/21/20 11/24/20 hydroxyzine HCl 50 mg PO QID PRN 08/21/20 11/24/20 pantoprazole [Protonix] 40 mg PO DAILY 08/21/20 11/24/20 quetiapine [Seroquel XR] 200 mg PO DAILY 08/21/20 11/24/20 trazodone 300 mg PO BEDTIME PRN 08/21/20 11/24/20 Previous Rx's Medication Instructions Recorded acetaminophen 650 mg PO Q6H PRN #30 tab 08/24/20 oxycodone 5 mg PO Q8H PRN #15 cap 08/31/20 oxycodone 5 mg PO Q8H PRN #10 cap 09/12/20 cyclobenzaprine 10 mg PO TID PRN #10 tab 10/11/20 amoxicillin-pot clavulanate 1 tab PO Q12H 7 Days #14 tab 11/02/20 [Augmentin] fluticasone propionate [Flonase 2 spray INTRANASAL DAILY #16 g 11/02/20 Allergy Relief] dicyclomine 10 mg PO TID #20 cap 11/16/20 Allergies Allergy/AdvReac Type Severity Reaction Status Date / Time Iodinated Contrast Media Allergy Severe ANAPHYLAXIS Verified 12/07/20 00:44 [CONTRAST, IV] ibuprofen [From Motrin] Allergy Intermediate SWELLING Verified 12/07/20 00:44 morphine [MORPHINE] Allergy Intermediate RASH Verified 12/07/20 00:44 acetaminophen [From TYLENOL] Allergy Mild HIVES Verified 12/07/20 00:44 bee pollen [Bee Stings] Allergy Mild UNKNOWN Verified 12/07/20 00:44 coconut Allergy Mild HIVES/SWELL Verified 12/07/20 00:44 ING latex [Latex] Allergy Mild HIVES Verified 12/07/20 00:44 NSAIDS (Non-Steroidal Allergy Mild HIVES Verified 12/07/20 00:44 Anti-Inflamma [NSAIDS (NON-STEROIDAL ANTI-INFLAMMA] aspirin [ASA] Allergy Unknown HIVES Verified 12/07/20 00:44 tramadol [TRAMADOL] Allergy Unknown UNKNOWN Verified 12/07/20 00:44 turkey Allergy Unknown UNKNOWN Verified 12/07/20 00:44 lidocaine Allergy Rash Verified 12/07/20 00:44 From Vicodin Allergy Mild RASH Uncoded 09/12/20 12:37 Review of Systems Review of Systems: Pertinent positives and negatives as stated in HPI 10 point review of systems otherwise negative. [facility] Past Medical History Source: nursing notes reviewed Medical History Asthma section wound complication Diabetes Fall GERD (gastroesophageal reflux disease) History of seizure Hypertension Multiple sclerosis Multiple sclerosis exacerbation Surgical History History of left ankle joint replacement History of thoracic surgery Social History Social History Household Members: Family Housing: Other Do you presently have visiting nurse or other home services: No (currently living in a hotel) Alcohol intake: never Cigarette Packs Per Day: 1 Cigarettes Per Day: 20.0 Smoked in Last 30 Days: No Second Hand Smoke Exposure: Yes Use of substances other than those prescribed or required for medical reasons: No Substance Use Type: Crack/Cocaine Advance Directives: No Advance Directives Information Provided: No Patient : No service: No Current occupational status: unemployed Physical Exam Vital Signs: Vital Signs: Last Vital Signs Temp 96.4 F L 03/17/21 00:30 Pulse 80 03/17/21 00:30 Resp 16 03/17/21 06:00 BP 110/70 03/17/21 00:30 Pulse Ox 98 06/09/21 00:30 Body Mass Index 29.8 VITAL SIGNS: Reviewed. GENERAL: Well developed, well nourished, in no acute distress. HEAD: Normocephalic/atraumatic EYES: PERRLA, EOMI OROPHARYNX: no oral lesions noted, posterior pharynx clear NECK: Supple, no adenopathy LUNGS: Normal breath sounds. No adventitious sounds or accessory muscle use. SpO2<98> CARDIOVASCULAR: Regular rate and rhythm without noted murmurs ABDOMEN: Soft, non-tender, non-distended with bowel sounds. Course Course Course Narrative: This is a 45-year-old female who is known to be homeless and was initially declining to leave the emergency department and had to be escorted off the property and then returned and signed in for evaluation stating that she was not able to get a ride home and denied suicidal ideation. Upon re- evaluation and discussion regarding discharge patient then began making vague suicidal statements without a specific plan. She was encouraged to leave the [facility] as she was discharged. Discharge Plan Discharge Clinical Impression: Anxiety Patient Disposition: Home, Self-Care Instructions: Anxiety (ED) Additional Instructions: Return to the ER for acute worsening of symptoms. Prescriptions: No Action oxycodone 5 mg capsule 5 mg PO Q8H PRN (Reason: pain) Qty: 15 RF: 0 oxycodone 5 mg capsule 5 mg PO Q8H PRN (Reason: pain) Qty: 10 RF: 0 atorvastatin 10 mg Tablet 10 mg PO BEDTIME RF: 0 amlodipine 2.5 mg Tablet 2.5 mg PO DAILY RF: 0 hydroxyzine HCl 50 mg Tablet 50 mg PO QID PRN (Reason: Anxiety) RF: 0 divalproex 500 mg Tablet,Delayed Release (Dr/Ec) 500 mg PO BID RF: 0 pantoprazole [Protonix] 40 mg Tablet,Delayed Release (Dr/Ec) 40 mg PO DAILY RF: 0 trazodone 300 mg Tablet 300 mg PO BEDTIME PRN (Reason: Sleep) RF: 0 albuterol sulfate [ProAir HFA] 90 mcg/actuation Hfa Aerosol Inhaler 2 puff INHALATION Q6H PRN (Reason: Shortness Of Breath) RF: 0 quetiapine [Seroquel XR] 200 mg Tablet Extended Release 24 Hr 200 mg PO DAILY RF: 0 acetaminophen 325 mg Tablet 650 mg PO Q6H PRN (Reason: Pain, Mild (Pain Scale 1-3)) Qty: 30 RF: 0 cyclobenzaprine 10 mg tablet 10 mg PO TID PRN (Reason: muscle spasm) Qty: 10 RF: 0 amoxicillin-pot clavulanate [Augmentin] 875-125 mg tablet 1 tab PO Q12H 7 Days Qty: 14 RF: 0 fluticasone propionate [Flonase Allergy Relief] 50 mcg/actuation spray,suspension 2 spray intranasal DAILY Qty: 16 RF: 0 dicyclomine 10 mg capsule 10 mg PO TID Qty: 20 RF: 0 Referrals: Physician,None [Primary Care Provider] - 2 days Interventions: ED Discharge Assessment Last Done: 03/17/21 06:50
[2021-03-17 02:00] VITALS: RESP 16
[2021-03-17 04:00] VITALS: RESP 16
[2021-03-17 06:00] VITALS: RESP 16
--- NOTE | 2021-03-17 06:43 | PC.NURSE ---
PATIENT'S PLAN FOR DISCHARGE HOME. PATIENT WOKEN UP FOR DISCHARGE AND STATING I NEED TO SEE CRISIS, I AM SUICIDAL, HOW CAN YOU JUST KICK ME OUT OF BED PATIENT HAS NOT VERBALIZED SI OR HI THROUGHOUT THE NIGHT WAS SEEN AND CLEARED BY PROVIDER FOR THE SECOND TIME TONIGHT. PROVIDER IS AWARE THAT PATIENT IS CURRENTLY MAKING THESE STATEMENTS. PLAN STILL REMAINS TO CONTINUE WITH DISCHARGE AND PROVIDER STATING TO GET SECURITY IF PATIENT CONTINUES TO YELL AT STAFF.
--- NOTE | 2021-03-17 06:48 | PC.NURSE ---
PATIENT REFUSING TO SIGN DISCHARGE PAPERWORK
== END 2021-03-17 07:03 | disposition home or self-care (01) ==
PROVIDERS: Emergency Provider Student in an Organized Health Care Education/Training Program
DX: F41.9 Anxiety disorder, unspecified (principal); E11.9 Type 2 diabetes mellitus without complications; J45.909 Unspecified asthma, uncomplicated; I10 Essential (primary) hypertension; G35 Multiple sclerosis; Z79.899 Other long term (current) drug therapy; Z59.0 Homelessness
CPT/HCPCS: 99282; 99284

== ENCOUNTER 2021-04-11 04:35 | Emergency (ER) | payer OTHER, SELFPAY ==
--- NOTE | ~2021-04-11 | XR_ITS ---
EXAMINATION: XR HIP, LEFT CLINICAL INFORMATION: Fall with pain COMPARISON: 11/23/2020 TECHNIQUE: Two views of the left hip. Frontal view of the pelvis. FINDINGS: No fracture or dislocation. The femoral heads are well-seated within their acetabula. Mild subchondral sclerosis present. Suspect underlying avascular necrosis of both femoral heads, similar to prior. No cortical collapse. The pelvic rim is intact. Sacroiliac joints and pubic symphysis are intact. Nonobstructive bowel gas pattern. XR/XR hip LT w [id number] IMPRESSION: No fracture or malalignment. 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
--- NOTE | ~2021-04-11 | XR_ITS ---
EXAMINATION: XR HAND, RIGHT CLINICAL INFORMATION: Fall with pain COMPARISON: None TECHNIQUE: 4 views of the right hand. This includes a scaphoid view of the wrist. FINDINGS: There is no fracture or dislocation. Alignment is anatomic. Joint spaces are maintained. Soft tissues are unremarkable. XR/XR hand wrist RT IMPRESSION: No fracture or malalignment.
[2021-04-11 04:43] VITALS: BP 144/95; BP 146/84; PULSE 100; PULSE 78; RESP 16; TEMP 36.7; O2SAT 98; O2SAT 99; BMI 25.2
--- NOTE | 2021-04-11 05:57 | ED.FALL ---
HPI - Fall General Chief Complaint: Back Pain/Injury Stated Complaint: back pain due to fall Time Seen by Provider: 04/11/21 05:57 Source: patient Mode of arrival: EMS History of Present Illness HPI Narrative: 45-year-old female who is brought in by EMS after she states her left leg gave out causing her to fall onto her left hip but also catching herself with her right hand. She states both are now giving her some pain. patient denies hitting head or losing consciousness. Related Data Home Medications Medication Instructions Recorded Confirmed albuterol sulfate [ProAir HFA] 2 puff INHALATION Q6H PRN 08/21/20 11/24/20 amlodipine 2.5 mg PO DAILY 08/21/20 11/24/20 atorvastatin 10 mg PO BEDTIME 08/21/20 11/24/20 divalproex 500 mg PO BID 08/21/20 11/24/20 hydroxyzine HCl 50 mg PO QID PRN 08/21/20 11/24/20 pantoprazole [Protonix] 40 mg PO DAILY 08/21/20 11/24/20 quetiapine [Seroquel XR] 200 mg PO DAILY 08/21/20 11/24/20 trazodone 300 mg PO BEDTIME PRN 08/21/20 11/24/20 Previous Rx's Medication Instructions Recorded acetaminophen 650 mg PO Q6H PRN #30 tab 08/24/20 oxycodone 5 mg PO Q8H PRN #15 cap 08/31/20 oxycodone 5 mg PO Q8H PRN #10 cap 09/12/20 cyclobenzaprine 10 mg PO TID PRN #10 tab 10/11/20 amoxicillin-pot clavulanate 1 tab PO Q12H 7 Days #14 tab 11/02/20 [Augmentin] fluticasone propionate [Flonase 2 spray INTRANASAL DAILY #16 g 11/02/20 Allergy Relief] dicyclomine 10 mg PO TID #20 cap 11/16/20 Allergies Allergy/AdvReac Type Severity Reaction Status Date / Time Iodinated Contrast Media Allergy Severe ANAPHYLAXIS Verified 12/07/20 00:44 [CONTRAST, IV] ibuprofen [From Motrin] Allergy Intermediate SWELLING Verified 12/07/20 00:44 morphine [MORPHINE] Allergy Intermediate RASH Verified 12/07/20 00:44 acetaminophen [From TYLENOL] Allergy Mild HIVES Verified 12/07/20 00:44 bee pollen [Bee Stings] Allergy Mild UNKNOWN Verified 12/07/20 00:44 coconut Allergy Mild HIVES/SWELL Verified 12/07/20 00:44 ING latex [Latex] Allergy Mild HIVES Verified 12/07/20 00:44 NSAIDS (Non-Steroidal Allergy Mild HIVES Verified 12/07/20 00:44 Anti-Inflamma [NSAIDS (NON-STEROIDAL ANTI-INFLAMMA] aspirin [ASA] Allergy Unknown HIVES Verified 12/07/20 00:44 tramadol [TRAMADOL] Allergy Unknown UNKNOWN Verified 12/07/20 00:44 turkey Allergy Unknown UNKNOWN Verified 12/07/20 00:44 lidocaine Allergy Rash Verified 12/07/20 00:44 From Vicodin Allergy Mild RASH Uncoded 09/12/20 12:37 Review of Systems Review of Systems: pertinent positives and negatives as stated in HPI 10 point review of systems is otherwise negative. [facility] Past Medical History Source: nursing notes reviewed Medical History Asthma section wound complication Diabetes Fall GERD (gastroesophageal reflux disease) History of seizure Hypertension Multiple sclerosis Multiple sclerosis exacerbation Surgical History History of left ankle joint replacement History of thoracic surgery Social History Social History Household Members: Family Housing: Other Do you presently have visiting nurse or other home services: No (currently living in a hotel) Alcohol intake: never Cigarette Packs Per Day: 1 Cigarettes Per Day: 20.0 Second Hand Smoke Exposure: Yes Substance Use Type: Crack/Cocaine Advance Directives: No Advance Directives Information Provided: No Patient : No service: No Current occupational status: unemployed Physical Exam Vital Signs: Vital Signs: Last Vital Signs Temp 98.1 F 04/11/21 04:43 Pulse 100 04/11/21 04:43 Resp 16 04/11/21 04:43 BP 146/84 H 04/11/21 04:43 Pulse Ox 98 04/11/21 04:43 Body Mass Index 25.2 VITAL SIGNS: Reviewed. GENERAL: Well developed, well nourished, in no acute distress. HEAD: Normocephalic/atraumatic EYES: PERRLA, EOMI EARS: Ext canals without abnormality OROPHARYNX: no oral lesions noted, posterior pharynx clear NECK: Supple, no adenopathy LUNGS: Normal breath sounds. No adventitious sounds or accessory muscle use. SpO2<98> CARDIOVASCULAR: Regular rate and rhythm without noted murmurs ABDOMEN: Soft, non-tender, non-distended with bowel sounds. 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 SKIN: Inspection of the skin reveals no rashes, ulcerations, jaundice, pallor, or petechiae. NEUROLOGIC: Alert and oriented x 4. Strength and sensation to light touch were grossly intact x 4. Course Course Course Narrative: This is a 45-year-old female who is resting comfortably in the [facility] and has a history and clinical presentation consistent with a minor fall and on review of all imaging there are no acute findings to suggest fracture or dislocation. Patient is continued to rest comfortably without any requirements for pain medication and is stable for discharge to home and follow-up with her primary care provider. Discharge Plan Discharge Clinical Impression: Fall Patient Disposition: Home, Self-Care Instructions: Fall Prevention (ED) Additional Instructions: return to the ER for acute worsening of symptoms. Prescriptions: No Action oxycodone 5 mg capsule 5 mg PO Q8H PRN (Reason: pain) Qty: 15 RF: 0 oxycodone 5 mg capsule 5 mg PO Q8H PRN (Reason: pain) Qty: 10 RF: 0 atorvastatin 10 mg Tablet 10 mg PO BEDTIME RF: 0 amlodipine 2.5 mg Tablet 2.5 mg PO DAILY RF: 0 hydroxyzine HCl 50 mg Tablet 50 mg PO QID PRN (Reason: Anxiety) RF: 0 divalproex 500 mg Tablet,Delayed Release (Dr/Ec) 500 mg PO BID RF: 0 pantoprazole [Protonix] 40 mg Tablet,Delayed Release (Dr/Ec) 40 mg PO DAILY RF: 0 trazodone 300 mg Tablet 300 mg PO BEDTIME PRN (Reason: Sleep) RF: 0 albuterol sulfate [ProAir HFA] 90 mcg/actuation Hfa Aerosol Inhaler 2 puff INHALATION Q6H PRN (Reason: Shortness Of Breath) RF: 0 quetiapine [Seroquel XR] 200 mg Tablet Extended Release 24 Hr 200 mg PO DAILY RF: 0 acetaminophen 325 mg Tablet 650 mg PO Q6H PRN (Reason: Pain, Mild (Pain Scale 1-3)) Qty: 30 RF: 0 cyclobenzaprine 10 mg tablet 10 mg PO TID PRN (Reason: muscle spasm) Qty: 10 RF: 0 amoxicillin-pot clavulanate [Augmentin] 875-125 mg tablet 1 tab PO Q12H 7 Days Qty: 14 RF: 0 fluticasone propionate [Flonase Allergy Relief] 50 mcg/actuation spray,suspension 2 spray intranasal DAILY Qty: 16 RF: 0 dicyclomine 10 mg capsule 10 mg PO TID Qty: 20 RF: 0 Referrals: Physician,Unknown [Primary Care Provider] - 2 days
--- NOTE | 2021-04-11 06:34 | PC.NURSE ---
pt awaiting for x-ray.
--- NOTE | 2021-04-11 07:09 | PC.NURSE ---
pt in [facility] approached by nursing staff. She is awake, refuses to answer questions. She has asked for a blanket with clear speech, mumbles when asked where she is living and if she is able to walk.
[2021-04-11 07:10] VITALS: BP 139/84; PULSE 61; RESP 16; O2SAT 99
[2021-04-11 08:27] VITALS: BP 139/84; PULSE 61; RESP 16; O2SAT 99
--- NOTE | 2021-04-11 08:28 | PC.NURSE ---
pt sleeping soundly in no distress. She was awoken for pain evaluation, initially would not respong then states pain is 7/10, would not relate where her pain was or answer any further questions. She states let me sleep . Pt ready for discharge, she states you need to get me home. pt then unwilling to disclose her address to staff. Pt was asked again to provide information and gave her address.
== END 2021-04-11 09:24 | disposition home or self-care (01) ==
PROVIDERS: Emergency Provider Student in an Organized Health Care Education/Training Program
DX: M25.552 Pain in left hip (principal); M79.641 Pain in right hand; Z91.81 History of falling; E11.9 Type 2 diabetes mellitus without complications; I10 Essential (primary) hypertension; G35 Multiple sclerosis; F17.210 Nicotine dependence, cigarettes, uncomplicated
CPT/HCPCS: 73110; 73130; 73502; 99283; 99284

== ENCOUNTER 2021-04-20 00:38 | Inpatient (IN) | payer OTHER, SELFPAY ==
--- NOTE | 2021-04-20 | ECG_ITS ---
Test Reason : SUBSTACE ABUSE Blood Pressure : / mmHG Vent. Rate : 080 BPM Atrial Rate : 080 BPM P-R Int : 156 ms QRS Dur : 086 ms QT Int : 384 ms P-R-T Axes : 062 -08 038 degrees QTc Int : 442 ms Normal sinus rhythm Nonspecific T wave abnormality Abnormal ECG When compared with ECG of 07-DEC-2020 01:37, No significant change was found Referred By: Mick Maier Electronically Signed By:Ted Weiner
[2021-04-20 00:45] VITALS: BP 162/119; PULSE 90; RESP 18; TEMP 36.8; O2SAT 100; BMI 28.0
[2021-04-20 01:00] VITALS: BP 162/119; PULSE 90; RESP 18; TEMP 36.8; O2SAT 100
[2021-04-20 01:54] LABS: COVID-19 Test Negative (Negative); IDNOW Serial# 9DD0AD1C
[2021-04-20 02:04] LABS: Amphetamine Screen Urine Not Detected (Not Detect); Barbiturates, Urine Not Detected (Not Detect); Benzodiazepines Screen Urine Not Detected (Not Detect); Cannabinoid Screen Urine Not Detected (Not Detect); Cocaine Screen Urine POSITIVE (Not Detect); Opiate Screen Urine Not Detected (Not Detect); Phencyclidine Screen Urine Not Detected (Not Detect)
--- NOTE | 2021-04-20 02:13 | ED.PSYCH ---
HPI - Psych General Chief Complaint: Psychiatric Symptoms <CAROL Walsh - Last Filed: 04/20/21 02:18> Stated Complaint: crisis/si etoh <CAROL Walsh Last Filed: 04/20/21 02:18> Time Seen by Provider: 04/20/21 01:20 <CAROL Walsh Last Filed: 04/20/21 02:18> Source: patient <CAROL Walsh Last Filed: 04/20/21 02:18> Mode of arrival: ambulatory <CAROL Walsh Last Filed: 04/20/21 02:18> Limitations: no limitations <CAROL Walsh Last Filed: 04/20/21 02:18> History of Present Illness HPI Narrative: Patient presents to ED for suicidal ideation. Patient admits to drinking alcohol and doing drugs. Patient denies any physical complaints <CAROL Walsh Last Filed: 04/20/21 02:18> Related Data Home Medications: Home Medications Medication Instructions Recorded Confirmed amlodipine 1 tab PO DAILY 04/20/21 04/20/21 baclofen 1 tab PO TID 04/20/21 04/20/21 divalproex 1 tab PO BID 04/20/21 04/20/21 docusate sodium 1 cap PO BID 04/20/21 04/20/21 gabapentin 1 tab PO TID 04/20/21 04/20/21 haloperidol 1 tab PO BEDTIME 04/20/21 04/20/21 loratadine 1 tab PO DAILY 04/20/21 04/20/21 omeprazole 1 cap PO BID 04/20/21 04/20/21 quetiapine 1 tab PO BEDTIME 04/20/21 04/20/21 trazodone 1 tab PO BEDTIME 04/20/21 04/20/21 <CAROL Walsh Last Filed: 04/20/21 02:18> Allergies/Adverse Reactions: Allergies Allergy/AdvReac Type Severity Reaction Status Date / Time Iodinated Contrast Media Allergy Severe ANAPHYLAXIS Verified 12/07/20 00:44 [CONTRAST, IV] ibuprofen [From Motrin] Allergy Intermediate SWELLING Verified 12/07/20 00:44 morphine [MORPHINE] Allergy Intermediate RASH Verified 12/07/20 00:44 acetaminophen [From TYLENOL] Allergy Mild HIVES Verified 12/07/20 00:44 bee pollen [Bee Stings] Allergy Mild UNKNOWN Verified 12/07/20 00:44 coconut Allergy Mild HIVES/SWELL Verified 12/07/20 00:44 ING latex [Latex] Allergy Mild HIVES Verified 12/07/20 00:44 NSAIDS (Non-Steroidal Allergy Mild HIVES Verified 12/07/20 00:44 Anti-Inflamma [NSAIDS (NON-STEROIDAL ANTI-INFLAMMA] aspirin [ASA] Allergy Unknown HIVES Verified 12/07/20 00:44 tramadol [TRAMADOL] Allergy Unknown UNKNOWN Verified 12/07/20 00:44 turkey Allergy Unknown UNKNOWN Verified 12/07/20 00:44 lidocaine Allergy Rash Verified 12/07/20 00:44 From Vicodin Allergy Mild RASH Uncoded 09/12/20 12:37 <CAROL Walsh - Last Filed: 04/20/21 02:18> Review of Systems Review of Systems: Yes all other systems are reviewed and are negative <CAROL Walsh Last Filed: 04/20/21 02:18> Constitutional: Constitutional: Reports as per HPI and Reports no additional constitutional complaints <CAROL Walsh Last Filed: 04/20/21 02:18> Eyes: Eyes: Reports as per HPI and Reports no additional eye complaints <CAROL Walsh Last Filed: 04/20/21 02:18> ENT: Reports system reviewed and no additional complaints, except as documented and Reports as per HPI <CAROL Walsh Last Filed: 04/20/21 02:18> Cardiovascular: Cardiovascular: Reports as per HPI and Reports no additional cardiovascular complaints <CAROL Walsh Last Filed: 04/20/21 02:18> Respiratory: Respiratory: Reports as per HPI and Reports no additional respiratory complaints <CAROL Walsh Last Filed: 04/20/21 02:18> Gastrointestinal: Gastrointestinal: Reports as per HPI and Reports no additional gastrointestinal complaints <CAROL Walsh Last Filed: 04/20/21 02:18> Genitourinary: Genitourinary: Reports no additional female genitourinary complaints and Reports as per HPI <CAROL Walsh Last Filed: 04/20/21 02:18> Musculoskeletal: Musculoskeletal: Reports no additional musculoskeletal complaints and Reports as per HPI <CAROL Walsh - Last Filed: 04/20/21 02:18> Neurologic: Reports system reviewed and no additional complaints, except as documented and Reports as per HPI <CAROL Walsh - Last Filed: 04/20/21 02:18> Psychiatric: Psychiatric: Reports no additional psychiatric complaints, Reports as per HPI and Reports suicidal ideation <CAROL Walsh - Last Filed: 04/20/21 02:18> FOR[facility]LY [facility], [facility] Past Medical History Medical History: Medical History Asthma section wound complication Diabetes Fall GERD (gastroesophageal reflux disease) History of seizure Hypertension Multiple sclerosis Multiple sclerosis exacerbation <CAROL Walsh - Last Filed: 04/20/21 02:18> Surgical History: Surgical History History of left ankle joint replacement History of thoracic surgery <CAROL Walsh - Last Filed: 04/20/21 02:18> Social History Social History: Social History Household Members: Family Housing: Other Do you presently have visiting nurse or other home services: No (currently living in a hotel) Alcohol intake: unknown Patient Tobacco Use Status: Tobacco use Unknown Cigarette Packs Per Day: 1 Cigarettes Per Day: 20.0 Second Hand Smoke Exposure: Yes Substance Use Type: Crack/Cocaine Advance Directives: No Advance Directives Information Provided: No Patient : No service: No Current occupational status: unemployed <CAROL Walsh - Last Filed: 04/20/21 02:18> Physical Exam Vital Signs: Vital Signs: Last Vital Signs Temp 98.2 F 04/20/21 01:00 Pulse 90 04/20/21 01:00 Resp 18 04/20/21 01:00 BP 162/119 H 04/20/21 01:00 Pulse Ox 100 04/20/21 01:00 Body Mass Index 28.0 <CAROL Walsh - Last Filed: 04/20/21 02:18> Vital Signs: Last Vital Signs Temp 98.2 F 04/20/21 01:00 Pulse 90 04/20/21 01:00 Resp 18 04/20/21 01:00 BP 162/119 H 04/20/21 01:00 Pulse Ox 100 04/20/21 01:00 Body Mass Index 28.0 <CAROL Vincent Last Filed: 04/20/21 08:09> Const: General: cooperative, healthy appearing, comfortable, no acute distress, well developed, alert, awake and Physically active <CAROL Walsh Last Filed: 04/20/21 02:18> Orientation/consciousness: patient oriented x3 <CAROL Walsh Last Filed: 04/20/21 02:18> HENMT: Head: Yes normal to inspection, Yes No palpable skull fracture present, Yes normocephalic, Yes atraumatic and No abrasion <CAROL Walsh Last Filed: 04/20/21 02:18> Eyes: General: appearance normal, both eyes and all related structures <CAROL Walsh Last Filed: 04/20/21 02:18> Neck: Neck: Yes normal visual inspection, Yes full ROM, Yes no lymphadenopathy, Yes no meningeal signs, Yes trachea midline, Yes supple and No tender <CAROL Walsh Last Filed: 04/20/21 02:18> Chest: Chest palpation & inspection: normal inspection of the chest and normal palpation of entire chest wall <CAROL Walsh Last Filed: 04/20/21 02:18> Resp: Effort & Inspection: normal respiratory effort and able to speak in complete sentences <CAROL Walsh Last Filed: 04/20/21 02:18> Auscultation: clear to auscultation bilaterally <CAROL Walsh Last Filed: 04/20/21 02:18> Cardio: Jugular venous distension: no JVD <CAROL Walsh Last Filed: 04/20/21 02:18> Heart sounds: S1 normal heart sound present and S2 normal heart sound present <CAROL Walsh Last Filed: 04/20/21 02:18> GI: Inspection: Yes normal to inspection and No abdominal wall ecchymosis <CAROL Walsh Last Filed: 04/20/21 02:18> Palpation (GI): Soft to palpation, not firm, nontender, no guarding and not rigid <CAROL Walsh Last Filed: 04/20/21 02:18> : General: No CVA tenderness and Yes no CVA tenderness <CAROL Walsh Last Filed: 04/20/21 02:18> Back/Spine/Pelvis: Back: no CVA tenderness, No CVA tenderness and No back tenderness <CAROL Walsh Last Filed: 04/20/21 02:18> Skin: General skin exam: no rashes or lesions noted and elasticity normal <CAROL Walsh Last Filed: 04/20/21 02:18> Neuro: General: patient oriented x3, gait normal, no meningeal signs and CN's II-XI intact bilaterally <CAROL Walsh Last Filed: 04/20/21 02:18> Cranial nerves: Yes CN's II-XII intact bilaterally <CAROL Walsh Last Filed: 04/20/21 02:18> Extrem: General: Yes normal to inspection and Yes full ROM <CAROL Walsh Last Filed: 04/20/21 02:18> Psych: Appearance: grossly normal, well kempt and not disheveled <CAROL Walsh Last Filed: 04/20/21 02:18> Course Course Course Narrative: Patient will have labs drawn and be evaluated by [facility] <CAROL Walsh Last Filed: 04/20/21 02:18> Physician observation started at 8am. Patient placed in physician observation because patient is awaiting [facility] evaluation for the possible need of inpatient psych admission. At the time observation was started patient's vital signs were stable. Patient is sleeping comfortably. Neuro exam is non-focal. CV: RRR and lungs are clear. Med rec completed. Will continue to monitor. <CAROL Vincent - Last Filed: 04/20/21 08:09> MDM - Psych Lab Data Result diagrams: : 04/20/21 03:04 04/20/21 03:04 <CAROL Walsh Last Filed: 04/20/21 02:18> Labs: Lab Results 04/20/21 04/20/21 04/20/21 Range/Units 01:06 01:06 03:03 WBC (4.8-10.8) X10*3/uL RBC (4.20-5.50) X10*6/uL Hgb (12.0-16.0) g/dl Hct (37-47) % MCV (80-98) fL MCH (27.0-33.0) pg MCHC (31.0-35.0) g/dl RDW (11.0-16.0) % Plt Count (160-400) X10*3/uL MPV (9.4-12.3) fL Immature Gran % (Auto) (0.0-0.4) % Neut % (Auto) (45-73) % Lymph % (Auto) (20-40) % [place] % (Auto) (2-11) % Eos % (Auto) (0-4) % Baso % (Auto) (0-2) % Lymph # (Auto) (1.2-4.9) X10*3/uL [place] # (Auto) (0.1-1.2) X10*3/uL Eos # (Auto) (0.0-0.4) X10*3/uL Baso # (Auto) (0.0-0.2) X10*3/uL Abs Immat Gran (auto) (0.00-0.03) X10*3/uL Absolute Neuts (auto) (2.0-8.3) X10*3/uL Absolute Nucleated RBC (0.0-0.012) X10*3/uL Nucleated RBC % (auto) (0.0-0.2) /100WBC Sodium (135-145) mmol/L Potassium (3.3-5.1) mmol/L Chloride (96-108) mmol/L Carbon Dioxide (22-29) mmol/L Anion Gap (12-20) BUN (9-16) mg/dL Creatinine (0.5-1.4) mg/dL Estim Creat Clear Calc Estimated GFR Random Glucose (60-115) mg/dL Calcium (8.4-10.2) mg/dL Total Bilirubin (0.0-1.0) mg/dL Direct Bilirubin (0.0-0.5) mg/dL AST (5-31) U/L ALT (0-31) U/L Alkaline Phosphatase (39-117) U/L Total Protein (6.5-8.0) g/dL Albumin (3.5-5.0) g/dL Urine Opiates Screen Not Detected (Not Detect) Ur Barbiturates Screen Not Detected (Not Detect) Valproic Acid (50.0-100.0) mcg/mL Ur Phencyclidine Scrn Not Detected (Not Detect) Ur Amphetamines Screen Not Detected (Not Detect) U Benzodiazepines Scrn Not Detected (Not Detect) Urine Cocaine Screen POSITIVE H (Not Detect) U Marijuana (THC) Screen Not Detected (Not Detect) Ethyl Alcohol 132 mg/dL COVID-19 (BRENDA) Negative (Negative) COVID-19 Clin Com See Note 04/20/21 04/20/21 Range/Units 03:04 03:04 WBC 7.1 (4.8-10.8) X10*3/uL RBC 4.84 (4.20-5.50) X10*6/uL Hgb 12.7 (12.0-16.0) g/dl Hct 39.5 (37-47) % MCV 81.6 (80-98) fL MCH 26.2 L (27.0-33.0) pg MCHC 32.2 (31.0-35.0) g/dl RDW 17.4 H (11.0-16.0) % Plt Count 256 (160-400) X10*3/uL MPV 11.3 (9.4-12.3) fL Immature Gran % (Auto) 0.4 (0.0-0.4) % Neut % (Auto) 53.3 (45-73) % Lymph % (Auto) 39.7 (20-40) % [place] % (Auto) 5.6 (2-11) % Eos % (Auto) 0.4 (0-4) % Baso % (Auto) 0.6 (0-2) % Lymph # (Auto) 2.8 (1.2-4.9) X10*3/uL [place] # (Auto) 0.4 (0.1-1.2) X10*3/uL Eos # (Auto) 0.0 (0.0-0.4) X10*3/uL Baso # (Auto) 0.0 (0.0-0.2) X10*3/uL Abs Immat Gran (auto) 0.03 (0.00-0.03) X10*3/uL Absolute Neuts (auto) 3.8 (2.0-8.3) X10*3/uL Absolute Nucleated RBC 0.000 (0.0-0.012) X10*3/uL Nucleated RBC % (auto) 0.0 (0.0-0.2) /100WBC Sodium 144 (135-145) mmol/L Potassium 3.5 (3.3-5.1) mmol/L Chloride 109 H (96-108) mmol/L Carbon Dioxide 20 L (22-29) mmol/L Anion Gap 19 (12-20) BUN 6 L D (9-16) mg/dL Creatinine 0.83 (0.5-1.4) mg/dL Estim Creat Clear Calc 93.8 Estimated GFR > 60 Random Glucose 86 (60-115) mg/dL Calcium 9.7 (8.4-10.2) mg/dL Total Bilirubin 0.5 (0.0-1.0) mg/dL Direct Bilirubin 0.2 (0.0-0.5) mg/dL AST 11 (5-31) U/L ALT 7 (0-31) U/L Alkaline Phosphatase 67 (39-117) U/L Total Protein 7.8 (6.5-8.0) g/dL Albumin 4.6 (3.5-5.0) g/dL Urine Opiates Screen (Not Detect) Ur Barbiturates Screen (Not Detect) Valproic Acid < 2.0 L (50.0-100.0) mcg/mL Ur Phencyclidine Scrn (Not Detect) Ur Amphetamines Screen (Not Detect) U Benzodiazepines Scrn (Not Detect) Urine Cocaine Screen (Not Detect) U Marijuana (THC) Screen (Not Detect) Ethyl Alcohol mg/dL COVID-19 (BRENDA) (Negative) COVID-19 Clin Com <CAROL Walsh - Last Filed: 04/20/21 02:18> Lab Results 04/20/21 04/20/21 04/20/21 Range/Units 01:06 01:06 03:03 WBC (4.8-10.8) X10*3/uL RBC (4.20-5.50) X10*6/uL Hgb (12.0-16.0) g/dl Hct (37-47) % MCV (80-98) fL MCH (27.0-33.0) pg MCHC (31.0-35.0) g/dl RDW (11.0-16.0) % Plt Count (160-400) X10*3/uL MPV (9.4-12.3) fL Immature Gran % (Auto) (0.0-0.4) % Neut % (Auto) (45-73) % Lymph % (Auto) (20-40) % [place] % (Auto) (2-11) % Eos % (Auto) (0-4) % Baso % (Auto) (0-2) % Lymph # (Auto) (1.2-4.9) X10*3/uL [place] # (Auto) (0.1-1.2) X10*3/uL Eos # (Auto) (0.0-0.4) X10*3/uL Baso # (Auto) (0.0-0.2) X10*3/uL Abs Immat Gran (auto) (0.00-0.03) X10*3/uL Absolute Neuts (auto) (2.0-8.3) X10*3/uL Absolute Nucleated RBC (0.0-0.012) X10*3/uL Nucleated RBC % (auto) (0.0-0.2) /100WBC Sodium (135-145) mmol/L Potassium (3.3-5.1) mmol/L Chloride (96-108) mmol/L Carbon Dioxide (22-29) mmol/L Anion Gap (12-20) BUN (9-16) mg/dL Creatinine (0.5-1.4) mg/dL Estim Creat Clear Calc Estimated GFR Random Glucose (60-115) mg/dL Calcium (8.4-10.2) mg/dL Total Bilirubin (0.0-1.0) mg/dL Direct Bilirubin (0.0-0.5) mg/dL AST (5-31) U/L ALT (0-31) U/L Alkaline Phosphatase (39-117) U/L Total Protein (6.5-8.0) g/dL Albumin (3.5-5.0) g/dL Urine Opiates Screen Not Detected (Not Detect) Ur Barbiturates Screen Not Detected (Not Detect) Valproic Acid (50.0-100.0) mcg/mL Ur Phencyclidine Scrn Not Detected (Not Detect) Ur Amphetamines Screen Not Detected (Not Detect) U Benzodiazepines Scrn Not Detected (Not Detect) Urine Cocaine Screen POSITIVE H (Not Detect) U Marijuana (THC) Screen Not Detected (Not Detect) Ethyl Alcohol 132 mg/dL COVID-19 (BRENDA) Negative (Negative) COVID-19 Clin Com See Note 04/20/21 04/20/21 Range/Units 03:04 03:04 WBC 7.1 (4.8-10.8) X10*3/uL RBC 4.84 (4.20-5.50) X10*6/uL Hgb 12.7 (12.0-16.0) g/dl Hct 39.5 (37-47) % MCV 81.6 (80-98) fL MCH 26.2 L (27.0-33.0) pg MCHC 32.2 (31.0-35.0) g/dl RDW 17.4 H (11.0-16.0) % Plt Count 256 (160-400) X10*3/uL MPV 11.3 (9.4-12.3) fL Immature Gran % (Auto) 0.4 (0.0-0.4) % Neut % (Auto) 53.3 (45-73) % Lymph % (Auto) 39.7 (20-40) % [place] % (Auto) 5.6 (2-11) % Eos % (Auto) 0.4 (0-4) % Baso % (Auto) 0.6 (0-2) % Lymph # (Auto) 2.8 (1.2-4.9) X10*3/uL [place] # (Auto) 0.4 (0.1-1.2) X10*3/uL Eos # (Auto) 0.0 (0.0-0.4) X10*3/uL Baso # (Auto) 0.0 (0.0-0.2) X10*3/uL Abs Immat Gran (auto) 0.03 (0.00-0.03) X10*3/uL Absolute Neuts (auto) 3.8 (2.0-8.3) X10*3/uL Absolute Nucleated RBC 0.000 (0.0-0.012) X10*3/uL Nucleated RBC % (auto) 0.0 (0.0-0.2) /100WBC Sodium 144 (135-145) mmol/L Potassium 3.5 (3.3-5.1) mmol/L Chloride 109 H (96-108) mmol/L Carbon Dioxide 20 L (22-29) mmol/L Anion Gap 19 (12-20) BUN 6 L D (9-16) mg/dL Creatinine 0.83 (0.5-1.4) mg/dL Estim Creat Clear Calc 93.8 Estimated GFR > 60 Random Glucose 86 (60-115) mg/dL Calcium 9.7 (8.4-10.2) mg/dL Total Bilirubin 0.5 (0.0-1.0) mg/dL Direct Bilirubin 0.2 (0.0-0.5) mg/dL AST 11 (5-31) U/L ALT 7 (0-31) U/L Alkaline Phosphatase 67 (39-117) U/L Total Protein 7.8 (6.5-8.0) g/dL Albumin 4.6 (3.5-5.0) g/dL Urine Opiates Screen (Not Detect) Ur Barbiturates Screen (Not Detect) Valproic Acid < 2.0 L (50.0-100.0) mcg/mL Ur Phencyclidine Scrn (Not Detect) Ur Amphetamines Screen (Not Detect) U Benzodiazepines Scrn (Not Detect) Urine Cocaine Screen (Not Detect) U Marijuana (THC) Screen (Not Detect) Ethyl Alcohol mg/dL COVID-19 (BRENDA) (Negative) COVID-19 Clin Com <CAROL Vincent - Last Filed: 04/20/21 08:09> Discharge Plan Discharge Prescriptions: No Action haloperidol 5 mg tablet 1 tab PO BEDTIME RF: 0 divalproex 500 mg tablet,delayed release (DR/EC) 1 tab PO BID RF: 0 quetiapine 100 mg tablet 1 tab PO BEDTIME RF: 0 gabapentin 800 mg tablet 1 tab PO TID RF: 0 baclofen 10 mg tablet 1 tab PO TID RF: 0 amlodipine 10 mg tablet 1 tab PO DAILY RF: 0 trazodone 150 mg tablet 1 tab PO BEDTIME RF: 0 docusate sodium 100 mg capsule 1 cap PO BID RF: 0 omeprazole 20 mg capsule,delayed release(DR/EC) 1 cap PO BID RF: 0 loratadine 10 mg tablet 1 tab PO DAILY RF: 0 <CAROL Walsh - Last Filed: 04/20/21 02:18>
[2021-04-20 03:09] LABS: Basophils Percent Auto 0.6 % (0-2); Eosinophils Percent Auto 0.4 % (0-4); Hematocrit 39.5 % (37-47); Hemoglobin 12.7 g/dl (12.0-16.0); Imm Gran Abs Auto 0.03 X10*3/uL (0.00-0.03); Imm Gran Pct Auto 0.4 % (0.0-0.4); Lymphocytes Absolute Auto 2.8 X10*3/uL (1.2-4.9); Lymphocytes Percent Auto 39.7 % (20-40); MANUAL DIFF FLAG NO; Mean Corpuscular HGB Conc 32.2 g/dl (31.0-35.0); Mean Corpuscular Hemoglobin 26.2 pg (27.0-33.0); Mean Corpuscular Volume 81.6 fL (80-98); Mean Platelet Volume 11.3 fL (9.4-12.3); Monocytes Absolute Auto 0.4 X10*3/uL (0.1-1.2); Monocytes Percent Auto 5.6 % (2-11); Neutrophils Absolute Auto 3.8 X10*3/uL (2.0-8.3); Neutrophils Percent Auto 53.3 % (45-73); Platelet Count 256 X10*3/uL (160-400); Red Blood Count 4.84 X10*6/uL (4.20-5.50); Red Cell Distribution Width 17.4 % (11.0-16.0); White Blood Count 7.1 X10*3/uL (4.8-10.8)
[2021-04-20 03:36] LABS: Ethanol 132 mg/dL
[2021-04-20 03:40] LABS: Alanine Aminotransferase 7 U/L (0-31); Albumin Level 4.6 g/dL (3.5-5.0); Alkaline Phosphatase 67 U/L (39-117); Anion Gap 19 (12-20); Aspartate Amino Transferase 11 U/L (5-31); Bilirubin Direct 0.2 mg/dL (0.0-0.5); Bilirubin Total 0.5 mg/dL (0.0-1.0); Blood Urea Nitrogen 6 mg/dL (9-16); Calcium 9.7 mg/dL (8.4-10.2); Carbon Dioxide 20 mmol/L (22-29); Chloride 109 mmol/L (96-108); Creatinine Clr Calc Pharmacy 93.8; Estimated Glomerular Filt Rate > 60; Glucose Random 86 mg/dL (60-115); Potassium 3.5 mmol/L (3.3-5.1); Sodium 144 mmol/L (135-145); Total Protein 7.8 g/dL (6.5-8.0)
[2021-04-20 03:49] LABS: Valproate < 2.0 mcg/mL (50.0-100.0)
--- NOTE | 2021-04-20 05:59 | PC.NURSE ---
Patient slept well, compliant with lab draw, loud and disruptive at times but [id number], patient's N referral completed via telephone with Christie overnight dairy management specialist, patient will be seeing in the morning, no distress observed/reported, will continue to monitor.
--- NOTE | 2021-04-20 07:04 | PC.NURSE ---
patient remains at rest at present with even unlabored breaths patient appears in no distress
[2021-04-20] MEDS: Docusate Sodium 100 MG CAPSULE PO ×2 (08:48→20:49)
[2021-04-20] MEDS: Divalproex Sodium 500 MG TABLET.DR PO ×2 (08:48→20:49)
[2021-04-20] MEDS: Baclofen 10 MG TABLET PO ×3 (08:48→22:46)
[2021-04-20] MEDS: Loratadine 10 MG TABLET PO (08:48)
[2021-04-20] MEDS: Omeprazole 20 MG CAPSULE.DR PO ×2 (08:48→15:29)
[2021-04-20 08:49] VITALS: BP 162/119; PULSE 90
[2021-04-20] MEDS: Gabapentin 400 MG CAPSULE 800 MG PO ×3 (08:49→20:49)
[2021-04-20] MEDS: amLODIPine Besylate 10 MG TABLET PO (08:49)
--- NOTE | 2021-04-20 14:37 | MHC.CARE ---
Patient evaluated by CARE Team, she continues to express suicidal ideation with plan, will require a psychiatric admission. Written assessment to follow. Case discussed with waterproofing supervisor and ED providers.
[2021-04-20 15:33] VITALS: BP 122/96; PULSE 100; RESP 16; TEMP 36.3; O2SAT 100
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
--- NOTE | 2021-04-20 15:52 | MHC.CARE ---
CARE team completed evaluation with plan for inpatient psychiatric treatment. Pt has been presented to for admission with anticipated transfer this evening.
[2021-04-20 18:54] VITALS: BP 162/86; PULSE 90; RESP 16; TEMP 36.2; O2SAT 93
[2021-04-20] MEDS: HaloperidoL 5 MG TABLET PO (20:49)
[2021-04-20] MEDS: traZODone HCL 50 MG TABLET 150 MG PO (20:49)
[2021-04-20] MEDS: QUEtiapine Fumarate 100 MG TABLET PO (20:49)
[2021-04-20 22:32] VITALS: BP 134/77; PULSE 95; TEMP 36.9; O2SAT 100
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
[2021-04-21 08:00] VITALS: BP 111/75; PULSE 79; RESP 14; O2SAT 97
[2021-04-21 08:23] VITALS: BP 111/75; PULSE 79
[2021-04-21] MEDS: Docusate Sodium 100 MG CAPSULE PO ×2 (08:23→20:29)
[2021-04-21] MEDS: Multivitamin TABLET 1 TAB PO (08:23)
[2021-04-21] MEDS: Divalproex Sodium 500 MG TABLET.DR PO ×2 (08:23→20:28)
[2021-04-21] MEDS: Baclofen 10 MG TABLET PO ×3 (08:23→20:30)
[2021-04-21] MEDS: Loratadine 10 MG TABLET PO (08:23)
[2021-04-21] MEDS: Gabapentin 400 MG CAPSULE 800 MG PO ×3 (08:23→20:28)
[2021-04-21] MEDS: Omeprazole 20 MG CAPSULE.DR PO ×2 (08:23→16:18)
[2021-04-21] MEDS: amLODIPine Besylate 10 MG TABLET PO (08:23)
[2021-04-21 08:37] LABS: Estimated Average Glucose 108 mg/dL; Hemoglobin A1c % 5.4 %
[2021-04-21 08:58] LABS: Cholesterol 214 mg/dL; HDL Cholesterol 75 mg/dL; LDL Cholesterol Calculated 123 mg/dl; Magnesium 2.1 mg/dL (1.6-2.6); Triglycerides 82 mg/dL
[2021-04-21 09:19] LABS: Free T4 (Free Thyroxine) 1.03 ng/dL (0.71-1.85); Thyroid Stimulating Hormone 0.38 uIU/mL (0.32-4.0)
[2021-04-21 09:33] LABS: Folate 9.9 ng/mL (> or = 4.0); Vitamin B12 417 pg/mL (200-900)
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
[2021-04-21 14:05] LABS: UPreg QC Valid YES; Urine Pregnancy NEGATIVE (NEGATIVE)
[2021-04-21] MEDS: QUEtiapine Fumarate 50 MG TABLET PO (16:17)
[2021-04-21] MEDS: Nicotine Polacrilex 2 MG GUM 4 MG BUCCAL (16:18)
[2021-04-21 16:35] VITALS: BP 133/82; PULSE 92; TEMP 36.2
[2021-04-21] MEDS: traZODone HCL 100 MG TABLET 200 MG PO (20:29)
[2021-04-21] MEDS: QUEtiapine Fumarate 200 MG TABLET PO (20:29)
[2021-04-21] MEDS: HaloperidoL 5 MG TABLET PO (20:30)
[2021-04-22 04:20] LABS: HIV AB/AG Nonreactive (Nonreactive); HIV Num 1 0.06 S/CO (0.00-0.99)
[2021-04-22 08:00] VITALS: BP 138/62; PULSE 62
[2021-04-22] MEDS: Loratadine 10 MG TABLET PO (08:56)
[2021-04-22] MEDS: Gabapentin 400 MG CAPSULE 800 MG PO ×3 (08:56→19:37)
[2021-04-22] MEDS: Baclofen 10 MG TABLET PO ×3 (08:57→19:37)
[2021-04-22] MEDS: Divalproex Sodium 500 MG TABLET.DR PO ×2 (08:57→19:37)
[2021-04-22] MEDS: Docusate Sodium 100 MG CAPSULE PO ×2 (08:57→19:38)
[2021-04-22] MEDS: Omeprazole 20 MG CAPSULE.DR PO ×2 (09:34→17:31)
[2021-04-22 09:36] VITALS: BP 116/71; PULSE 62
[2021-04-22] MEDS: amLODIPine Besylate 10 MG TABLET PO (09:36)
[2021-04-22 12:00] VITALS: BP 119/65; PULSE 66; RESP 16; TEMP 36.6; O2SAT 99
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
[2021-04-22] MEDS: traZODone HCL 100 MG TABLET 200 MG PO (19:37)
[2021-04-22] MEDS: QUEtiapine Fumarate 200 MG TABLET PO (19:37)
[2021-04-22] MEDS: HaloperidoL 5 MG TABLET PO (19:37)
[2021-04-22] MEDS: Nicotine Polacrilex 2 MG GUM 4 MG BUCCAL (19:38)
[2021-04-22 20:15] VITALS: BP 146/88; PULSE 97; TEMP 37
[2021-04-22 20:30] VITALS: RESP 18; TEMP 36.8
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
[2021-04-23 06:00] VITALS: BP 102/57; PULSE 71; RESP 18; TEMP 35.8; O2SAT 100
[2021-04-23 08:00] VITALS: BP 106/58; PULSE 66; TEMP 36.9
[2021-04-23] MEDS: Docusate Sodium 100 MG CAPSULE PO ×2 (08:27→19:53)
[2021-04-23] MEDS: Omeprazole 20 MG CAPSULE.DR PO ×2 (08:28→17:00)
[2021-04-23] MEDS: Loratadine 10 MG TABLET PO (08:28)
[2021-04-23] MEDS: Baclofen 10 MG TABLET PO ×3 (08:28→19:52)
[2021-04-23] MEDS: Gabapentin 400 MG CAPSULE 800 MG PO ×3 (08:28→19:53)
[2021-04-23] MEDS: Divalproex Sodium 500 MG TABLET.DR PO ×2 (08:29→19:53)
[2021-04-23 08:59] LABS: Ammonia 56 umol/L (13-55)
[2021-04-23 09:08] LABS: Alanine Aminotransferase < 6 U/L (0-31); Albumin Level 3.6 g/dL (3.5-5.0); Alkaline Phosphatase 67 U/L (39-117); Aspartate Amino Transferase 9 U/L (5-31); Bilirubin Direct < 0.2 mg/dL (0.0-0.5); Bilirubin Total 0.2 mg/dL (0.0-1.0); Total Protein 5.9 g/dL (6.5-8.0)
[2021-04-23 09:16] LABS: Valproate 66.4 mcg/mL (50.0-100.0)
[2021-04-23] MEDS: Nicotine Polacrilex 2 MG GUM 4 MG BUCCAL ×3 (13:36→20:01)
[2021-04-23 13:37] VITALS: BP 100/58; PULSE 68
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
[2021-04-23 16:30] VITALS: BP 129/98; PULSE 80; TEMP 36.6
[2021-04-23] MEDS: QUEtiapine Fumarate 50 MG TABLET PO ×2 (17:03→21:13)
[2021-04-23 18:00] VITALS: RESP 16
[2021-04-23] MEDS: QUEtiapine Fumarate 200 MG TABLET PO (19:53)
[2021-04-23] MEDS: traZODone HCL 100 MG TABLET 300 MG PO (19:53)
[2021-04-23 20:00] VITALS: RESP 16
[2021-04-23] MEDS: diphenhydrAMINE HCL 25 MG TABLET 50 MG PO (21:12)
[2021-04-24] MEDS: Loratadine 10 MG TABLET PO (09:05)
[2021-04-24] MEDS: Multivitamin TABLET 1 TAB PO (09:05)
[2021-04-24 09:06] VITALS: BP 107/61; PULSE 65
[2021-04-24] MEDS: amLODIPine Besylate 10 MG TABLET PO (09:06)
[2021-04-24] MEDS: Divalproex Sodium 500 MG TABLET.DR PO ×2 (09:06→20:04)
[2021-04-24] MEDS: Baclofen 10 MG TABLET PO ×3 (09:06→20:04)
[2021-04-24] MEDS: Omeprazole 20 MG CAPSULE.DR PO ×2 (09:06→15:46)
[2021-04-24] MEDS: Docusate Sodium 100 MG CAPSULE PO ×2 (09:07→20:04)
[2021-04-24] MEDS: Gabapentin 400 MG CAPSULE 800 MG PO ×3 (09:07→20:03)
[2021-04-24 13:00] LABS: CT PCR NOT DETECTED (Not Detect.); NG PCR NOT DETECTED (Not Detect.)
[2021-04-24] MEDS: Nicotine Polacrilex 2 MG GUM 4 MG BUCCAL ×3 (13:37→21:58)
[2021-04-24] MEDS: QUEtiapine Fumarate 50 MG TABLET PO ×2 (15:58→21:58)
[2021-04-24 16:00] VITALS: BP 158/84; PULSE 94; RESP 18; TEMP 36; O2SAT 100
[2021-04-24] MEDS: diphenhydrAMINE HCL 25 MG TABLET 50 MG PO ×2 (16:00→21:59)
[2021-04-24 18:00] VITALS: BP 158/84; PULSE 94; RESP 18; TEMP 36; O2SAT 100
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
[2021-04-24] MEDS: traZODone HCL 100 MG TABLET 300 MG PO (20:04)
[2021-04-24] MEDS: QUEtiapine Fumarate 200 MG TABLET PO (20:04)
[2021-04-24] MEDS: LORazepam 1 MG TABLET PO (20:08)
[2021-04-25 08:02] VITALS: BP 137/100; PULSE 89; RESP 18; TEMP 36.4; O2SAT 100
[2021-04-25 08:06] VITALS: BP 137/100; PULSE 89
[2021-04-25] MEDS: Multivitamin TABLET 1 TAB PO (08:06)
[2021-04-25] MEDS: Divalproex Sodium 500 MG TABLET.DR PO ×2 (08:06→21:42)
[2021-04-25] MEDS: Omeprazole 20 MG CAPSULE.DR PO ×2 (08:06→18:23)
[2021-04-25] MEDS: amLODIPine Besylate 10 MG TABLET PO (08:06)
[2021-04-25] MEDS: Baclofen 10 MG TABLET PO ×3 (08:06→20:59)
[2021-04-25] MEDS: Gabapentin 400 MG CAPSULE 800 MG PO ×3 (08:07→20:59)
[2021-04-25] MEDS: Loratadine 10 MG TABLET PO (08:07)
[2021-04-25] MEDS: Docusate Sodium 100 MG CAPSULE PO ×2 (08:07→20:59)
[2021-04-25] MEDS: QUEtiapine Fumarate 50 MG TABLET PO ×2 (08:30→14:54)
[2021-04-25] MEDS: diphenhydrAMINE HCL 25 MG TABLET 50 MG PO ×2 (08:31→14:54)
[2021-04-25] MEDS: Nicotine Polacrilex 2 MG GUM 4 MG BUCCAL ×2 (08:31→19:09)
[2021-04-25 16:00] VITALS: BP 153/95; PULSE 97; RESP 18; TEMP 36.1; O2SAT 99
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
[2021-04-25 17:29] VITALS: BP 153/95; PULSE 97; TEMP 36.1; O2SAT 99
[2021-04-25] MEDS: traZODone HCL 100 MG TABLET 300 MG PO (20:59)
[2021-04-25] MEDS: QUEtiapine Fumarate 200 MG TABLET PO (20:59)
[2021-04-25] MEDS: LORazepam 1 MG TABLET PO (21:06)
[2021-04-26 09:09] VITALS: BP 113/60; PULSE 78
[2021-04-26] MEDS: amLODIPine Besylate 10 MG TABLET PO (09:09)
[2021-04-26] MEDS: Baclofen 10 MG TABLET PO ×3 (09:10→20:11)
[2021-04-26] MEDS: Divalproex Sodium 500 MG TABLET.DR PO ×2 (09:10→20:11)
[2021-04-26] MEDS: Omeprazole 20 MG CAPSULE.DR PO ×2 (09:10→16:29)
[2021-04-26] MEDS: Multivitamin TABLET 1 TAB PO (09:11)
[2021-04-26] MEDS: Gabapentin 400 MG CAPSULE 800 MG PO ×3 (09:11→20:11)
[2021-04-26] MEDS: Loratadine 10 MG TABLET PO (09:11)
[2021-04-26] MEDS: Docusate Sodium 100 MG CAPSULE PO ×2 (09:11→20:11)
[2021-04-26 09:30] VITALS: BP 113/60; PULSE 78; RESP 18
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
[2021-04-26] MEDS: Nicotine Polacrilex 2 MG GUM 4 MG BUCCAL ×2 (15:27→20:49)
[2021-04-26] MEDS: LORazepam 1 MG TABLET PO (20:11)
[2021-04-26] MEDS: traZODone HCL 100 MG TABLET 300 MG PO (20:11)
[2021-04-26] MEDS: QUEtiapine Fumarate 200 MG TABLET PO (20:11)
[2021-04-26 21:00] VITALS: BP 138/85; PULSE 97; TEMP 36.3
[2021-04-26] MEDS: diphenhydrAMINE HCL 25 MG TABLET 50 MG PO (21:03)
[2021-04-26] MEDS: QUEtiapine Fumarate 50 MG TABLET PO (21:03)
[2021-04-27] MEDS: Omeprazole 20 MG CAPSULE.DR PO (06:31)
[2021-04-27 08:00] VITALS: BP 117/73; PULSE 90; RESP 18
[2021-04-27 08:49] VITALS: BP 117/73; PULSE 90
[2021-04-27] MEDS: amLODIPine Besylate 10 MG TABLET PO (08:49)
[2021-04-27] MEDS: Baclofen 10 MG TABLET PO ×3 (08:49→20:13)
[2021-04-27] MEDS: Docusate Sodium 100 MG CAPSULE PO ×2 (08:50→20:12)
[2021-04-27] MEDS: Gabapentin 400 MG CAPSULE 800 MG PO ×3 (08:50→20:12)
[2021-04-27] MEDS: Divalproex Sodium 500 MG TABLET.DR PO ×2 (08:50→20:12)
[2021-04-27] MEDS: Multivitamin TABLET 1 TAB PO (08:51)
[2021-04-27] MEDS: Loratadine 10 MG TABLET PO (08:51)
[2021-04-27] MEDS: QUEtiapine Fumarate 50 MG TABLET PO (13:54)
[2021-04-27] MEDS: diphenhydrAMINE HCL 25 MG TABLET 50 MG PO (13:54)
[2021-04-27 14:00] VITALS: BP 158/97; PULSE 100; RESP 20
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
[2021-04-27] MEDS: traZODone HCL 100 MG TABLET 300 MG PO (20:11)
[2021-04-27] MEDS: QUEtiapine Fumarate 200 MG TABLET PO (20:12)
[2021-04-27] MEDS: Nicotine Polacrilex 2 MG GUM 4 MG BUCCAL (20:36)
[2021-04-27 21:25] VITALS: BP 118/63; PULSE 99; TEMP 36.6
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
[2021-04-28] MEDS: Omeprazole 20 MG CAPSULE.DR PO ×2 (06:42→16:56)
[2021-04-28 08:00] VITALS: BP 131/85; PULSE 108; TEMP 36.4; O2SAT 100
[2021-04-28 08:09] VITALS: BP 131/85; PULSE 108
[2021-04-28] MEDS: amLODIPine Besylate 10 MG TABLET PO (08:09)
[2021-04-28] MEDS: Docusate Sodium 100 MG CAPSULE PO ×2 (08:10→20:05)
[2021-04-28] MEDS: Multivitamin TABLET 1 TAB PO (08:10)
[2021-04-28] MEDS: Loratadine 10 MG TABLET PO (08:10)
[2021-04-28] MEDS: Nicotine Polacrilex 2 MG GUM 4 MG BUCCAL (08:10)
[2021-04-28] MEDS: Baclofen 10 MG TABLET PO ×3 (08:10→20:05)
[2021-04-28] MEDS: Divalproex Sodium 500 MG TABLET.DR PO ×2 (08:10→20:05)
[2021-04-28] MEDS: Gabapentin 400 MG CAPSULE 800 MG PO ×3 (08:10→20:05)
[2021-04-28 16:00] VITALS: BP 132/82; PULSE 102; RESP 16; TEMP 36.5
[2021-04-28 20:00] VITALS: BP 128/78; PULSE 106; RESP 16; TEMP 36.1
[2021-04-28] MEDS: traZODone HCL 100 MG TABLET 300 MG PO (20:04)
[2021-04-28] MEDS: LORazepam 1 MG TABLET PO (20:05)
[2021-04-28] MEDS: diphenhydrAMINE HCL 25 MG TABLET 50 MG PO (20:05)
[2021-04-28] MEDS: QUEtiapine Fumarate 200 MG TABLET PO (20:05)
[2021-04-28] MEDS: QUEtiapine Fumarate 50 MG TABLET PO (20:59)
[2021-04-29 07:00] VITALS: BMI 35.4
[2021-04-29] MEDS: Docusate Sodium 100 MG CAPSULE PO ×2 (08:42→20:45)
[2021-04-29] MEDS: Gabapentin 400 MG CAPSULE 800 MG PO ×3 (08:42→20:45)
[2021-04-29] MEDS: Omeprazole 20 MG CAPSULE.DR PO (08:42)
[2021-04-29] MEDS: Multivitamin TABLET 1 TAB PO (08:42)
[2021-04-29] MEDS: Loratadine 10 MG TABLET PO (08:42)
[2021-04-29] MEDS: Divalproex Sodium 500 MG TABLET.DR PO ×2 (08:42→20:45)
[2021-04-29 08:43] VITALS: BP 113/71; PULSE 89
[2021-04-29] MEDS: amLODIPine Besylate 10 MG TABLET PO (08:43)
[2021-04-29] MEDS: Baclofen 10 MG TABLET PO ×3 (08:45→20:45)
[2021-04-29] MEDS: Nicotine Polacrilex 2 MG GUM 4 MG BUCCAL ×2 (13:21→16:12)
[2021-04-29] MEDS: QUEtiapine Fumarate 50 MG TABLET PO (14:45)
[2021-04-29] MEDS: diphenhydrAMINE HCL 25 MG TABLET 50 MG PO ×2 (14:46→20:49)
[2021-04-29 16:00] VITALS: RESP 18
[2021-04-29 18:00] VITALS: RESP 16
[2021-04-29 20:00] VITALS: RESP 16
[2021-04-29] MEDS: QUEtiapine Fumarate 200 MG TABLET PO (20:45)
[2021-04-29] MEDS: traZODone HCL 100 MG TABLET 300 MG PO (20:45)
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
[2021-04-30 06:40] VITALS: BP 108/55; PULSE 80; RESP 14; TEMP 36.4; O2SAT 97
[2021-04-30 08:50] VITALS: BP 138/100; PULSE 97
[2021-04-30] MEDS: Gabapentin 400 MG CAPSULE 800 MG PO ×3 (08:50→21:11)
[2021-04-30] MEDS: amLODIPine Besylate 10 MG TABLET PO (08:50)
[2021-04-30] MEDS: Baclofen 10 MG TABLET PO ×3 (08:50→21:11)
[2021-04-30] MEDS: Multivitamin TABLET 1 TAB PO (08:50)
[2021-04-30] MEDS: Loratadine 10 MG TABLET PO (08:51)
[2021-04-30] MEDS: Omeprazole 20 MG CAPSULE.DR PO ×2 (08:51→17:30)
[2021-04-30] MEDS: Docusate Sodium 100 MG CAPSULE PO ×2 (08:51→21:11)
[2021-04-30] MEDS: Divalproex Sodium 500 MG TABLET.DR PO ×2 (08:51→21:11)
[2021-04-30] MEDS: diphenhydrAMINE HCL 25 MG TABLET 50 MG PO (17:33)
[2021-04-30] MEDS: QUEtiapine Fumarate 50 MG TABLET PO ×2 (17:33→21:48)
[2021-04-30] MEDS: Nicotine Polacrilex 2 MG GUM 4 MG BUCCAL ×2 (18:34→21:48)
[2021-04-30 18:55] VITALS: BP 127/87; PULSE 104; TEMP 36.6
[2021-04-30] MEDS: traZODone HCL 100 MG TABLET 300 MG PO (21:10)
[2021-04-30] MEDS: QUEtiapine Fumarate 200 MG TABLET PO (21:11)
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
[2021-05-01] MEDS: Omeprazole 20 MG CAPSULE.DR PO ×2 (06:07→16:32)
[2021-05-01 06:13] VITALS: BP 120/66; PULSE 89; RESP 18; O2SAT 98
[2021-05-01] MEDS: Multivitamin TABLET 1 TAB PO (09:17)
[2021-05-01] MEDS: Loratadine 10 MG TABLET PO (09:18)
[2021-05-01] MEDS: Docusate Sodium 100 MG CAPSULE PO ×2 (09:18→20:57)
[2021-05-01] MEDS: Divalproex Sodium 500 MG TABLET.DR PO ×2 (09:18→20:57)
[2021-05-01] MEDS: Baclofen 10 MG TABLET PO ×3 (09:18→20:57)
[2021-05-01 09:19] VITALS: BP 147/95; PULSE 92
[2021-05-01] MEDS: Gabapentin 400 MG CAPSULE 800 MG PO ×3 (09:19→20:55)
[2021-05-01] MEDS: amLODIPine Besylate 10 MG TABLET PO (09:19)
[2021-05-01] MEDS: QUEtiapine Fumarate 50 MG TABLET PO ×2 (12:59→21:04)
[2021-05-01] MEDS: diphenhydrAMINE HCL 25 MG TABLET 50 MG PO ×2 (12:59→21:04)
[2021-05-01 16:25] VITALS: BP 135/81; PULSE 103; TEMP 36.7
[2021-05-01] MEDS: Nicotine Polacrilex 2 MG GUM 4 MG BUCCAL (16:37)
[2021-05-01] MEDS: traZODone HCL 100 MG TABLET 300 MG PO (20:56)
[2021-05-01] MEDS: QUEtiapine Fumarate 200 MG TABLET PO (20:57)
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
[2021-05-02 06:00] VITALS: BP 105/62; PULSE 81; RESP 18; TEMP 36; O2SAT 98
[2021-05-02] MEDS: Omeprazole 20 MG CAPSULE.DR PO ×2 (08:47→15:59)
[2021-05-02] MEDS: Gabapentin 400 MG CAPSULE 800 MG PO ×3 (08:48→20:08)
[2021-05-02] MEDS: Divalproex Sodium 500 MG TABLET.DR PO ×2 (08:48→20:08)
[2021-05-02] MEDS: Loratadine 10 MG TABLET PO (08:48)
[2021-05-02 08:49] VITALS: BP 119/59; PULSE 88
[2021-05-02] MEDS: amLODIPine Besylate 10 MG TABLET PO (08:49)
[2021-05-02] MEDS: Baclofen 10 MG TABLET PO ×3 (08:49→20:08)
[2021-05-02] MEDS: Docusate Sodium 100 MG CAPSULE PO ×2 (08:49→20:07)
[2021-05-02] MEDS: Lidocaine 4 % Patch ADH..PATCH 1 PATCH TRANSDERMA (13:31)
[2021-05-02] MEDS: QUEtiapine Fumarate 100 MG TABLET PO ×2 (16:00→22:01)
[2021-05-02] MEDS: diphenhydrAMINE HCL 25 MG TABLET 75 MG PO ×2 (16:00→20:07)
[2021-05-02 16:08] VITALS: BP 132/99; PULSE 107; TEMP 36.6
[2021-05-02] MEDS: Nicotine Polacrilex 2 MG GUM 4 MG BUCCAL (18:23)
[2021-05-02] MEDS: traZODone HCL 100 MG TABLET 300 MG PO (20:08)
[2021-05-02] MEDS: QUEtiapine Fumarate 200 MG TABLET PO (20:08)
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
[2021-05-03 06:00] VITALS: BP 143/82; PULSE 100; TEMP 36; O2SAT 98
[2021-05-03] MEDS: diphenhydrAMINE HCL 25 MG TABLET 75 MG PO (06:05)
[2021-05-03] MEDS: QUEtiapine Fumarate 100 MG TABLET PO (06:06)
[2021-05-03] MEDS: Omeprazole 20 MG CAPSULE.DR PO (06:23)
[2021-05-03 08:03] VITALS: BP 143/82; PULSE 100
[2021-05-03] MEDS: amLODIPine Besylate 10 MG TABLET PO (08:03)
[2021-05-03] MEDS: Gabapentin 400 MG CAPSULE 800 MG PO (08:03)
[2021-05-03] MEDS: Docusate Sodium 100 MG CAPSULE PO (08:03)
[2021-05-03] MEDS: Divalproex Sodium 500 MG TABLET.DR PO (08:03)
[2021-05-03] MEDS: Baclofen 10 MG TABLET PO (08:03)
[2021-05-03] MEDS: Loratadine 10 MG TABLET PO (08:41)
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
== END 2021-05-03 14:23 | disposition home or self-care (01) | DRG 885 ==
LOC: HO.ED 19:13 → HO.PM5 21:13
PROVIDERS: Physician Assistant; Admitting Provider Clinical Nurse Specialist Psychiatric/Mental Health, Adult; Emergency Provider Internal Medicine; Visit Provider Psychiatry & Neurology Psychiatry
DX: F33.2 Major depressive disorder, recurrent severe without psychotic features (principal); R45.851 Suicidal ideations; F43.10 Post-traumatic stress disorder, unspecified; G35 Multiple sclerosis; Z96.662 Presence of left artificial ankle joint; I10 Essential (primary) hypertension; F10.10 Alcohol abuse, uncomplicated; F14.10 Cocaine abuse, uncomplicated; F19.94 Other psychoactive substance use, unspecified with psychoactive substance-induced mood disorder; K21.9 Gastro-esophageal reflux disease without esophagitis; F17.210 Nicotine dependence, cigarettes, uncomplicated; Z71.6 Tobacco abuse counseling; Z20.822 Contact with and (suspected) exposure to COVID-19; Z59.0 Homelessness; Z88.5 Allergy status to narcotic agent; Z88.6 Allergy status to analgesic agent; Z79.899 Other long term (current) drug therapy
CPT/HCPCS: 36415; 80053; 80061; 80076; 80164; 80307; 81025; 82077; 82140; 82607; 82746; 83036; 83735; 84439; 84443; 85025; 87389; 87491; 87591; 87635; 93005; 99285; Q0163

== ENCOUNTER 2021-06-13 19:57 | Emergency (ER) | payer OTHER, SELFPAY ==
[2021-06-13 20:10] VITALS: BP 145/102; PULSE 85; RESP 20; TEMP 36.9; O2SAT 99; BMI 29.8
--- NOTE | 2021-06-13 20:18 | PC.NURSE ---
at bedside for primary eval.
--- NOTE | 2021-06-13 20:22 | ED_ITS ---
HPI - Chest Pain General Chief Complaint: Chest Pain Stated Complaint: Chest pain Time Seen by Provider: 06/13/21 20:11 Source: patient Mode of arrival: EMS Limitations: no limitations History of Present Illness HPI narrative: Patient with history of MS PTSD cocaine abuse depressive disorder comes here with multiple complaints report that her son in [place] among [employer] last week. When confound from her mother who confirmed that her son is alive and lives in [place] and is healthy. Then she started complaining of increased stress and increased weakness of the right side especially leg since yesterday asking for IV steroids for flare up. Per records patient has been to the hospital several times like this and has poor follow-up plan , patient claims that she been following with a neurologist in [place]. Patient asking for medication to sleep. Noted that she was moving her right leg when not watched but when examined patient unable to move the r leg. Patient denies any headache Related Data Previous Rx's Medication Instructions Recorded albuterol sulfate 90 mcg/actuation 2 puff INHALATION Q4H PRN #0 g 05/03/21 aerosol inhaler (Ventolin HFA) amlodipine 10 mg tablet 10 mg PO DAILY #30 tab 05/03/21 baclofen 10 mg tablet 10 mg PO TID #90 tab 05/03/21 camphor 4 %-methyl salicylate 30 1 appl TOPICAL BID PRN #113 g 05/03/21 %-menthol 10 % topical cream (Bengay Ultra Strength) cetirizine 10 mg capsule (Zyrtec) 10 mg PO DAILY #30 cap 05/03/21 diphenhydramine HCl 25 mg tablet 75 mg PO TID PRN #90 tab 05/03/21 (Allergy Relief (diphenhydramine)) divalproex 500 mg tablet,delayed 500 mg PO BID #60 tab 05/03/21 release docusate sodium 100 mg capsule 100 mg PO BID #60 cap 05/03/21 gabapentin 400 mg capsule 800 mg PO TID #90 cap 05/03/21 lidocaine 4 % topical patch 1 patch TRANSDERMAL DAILY #30 ea 05/03/21 (Lidocaine Pain Relief) multivitamin with folic acid 400 1 tab PO DAILY #30 tab 05/03/21 mcg tablet (Tab-A-Karen) nicotine (polacrilex) 2 mg gum 4 mg BUCCAL Q2H PRN #60 ea 05/03/21 omeprazole 20 mg capsule,delayed 20 mg PO BID@0630,1630 #60 cap 05/03/21 release quetiapine 100 mg tablet 100 mg PO Q6H PRN #90 tab 05/03/21 quetiapine 200 mg tablet 200 mg PO BEDTIME #30 tab 05/03/21 trazodone 100 mg tablet 300 mg PO BEDTIME #90 tab 05/03/21 Allergies Allergy/AdvReac Type Severity Reaction Status Date / Time Iodinated Contrast Media Allergy Severe ANAPHYLAXIS Verified 06/13/21 20:16 [CONTRAST, IV] ibuprofen [From Motrin] Allergy Intermediate SWELLING Verified 06/13/21 20:16 morphine [MORPHINE] Allergy Intermediate RASH Verified 06/13/21 20:16 acetaminophen [From TYLENOL] Allergy Mild HIVES Verified 06/13/21 20:16 bee pollen [Bee Stings] Allergy Mild UNKNOWN Verified 06/13/21 20:16 coconut Allergy Mild HIVES/SWELL Verified 06/13/21 20:16 ING latex [Latex] Allergy Mild HIVES Verified 06/13/21 20:16 NSAIDS (Non-Steroidal Allergy Mild HIVES Verified 06/13/21 20:16 Anti-Inflamma [NSAIDS (NON-STEROIDAL ANTI-INFLAMMA] aspirin [ASA] Allergy Unknown HIVES Verified 06/13/21 20:16 tramadol [TRAMADOL] Allergy Unknown UNKNOWN Verified 06/13/21 20:16 turkey Allergy Unknown UNKNOWN Verified 06/13/21 20:16 lidocaine Allergy Rash Verified 06/13/21 20:16 From Vicodin Allergy Mild RASH Uncoded 06/13/21 20:16 Review of Systems Review of Systems: Yes all other systems are reviewed and are negative PMFSH Past Medical History Medical History Alcohol abuse Asthma section wound complication Cocaine abuse Diabetes Fall GERD (gastroesophageal reflux disease) History of seizure Hypertension MDD (major depressive disorder), recurrent episode, severe Multiple sclerosis Multiple sclerosis Multiple sclerosis exacerbation Surgical History History of left ankle joint replacement History of thoracic surgery Social History Social History Household Members: None Housing: Homeless Do you presently have visiting nurse or other home services: No Alcohol intake: unknown Patient Tobacco Use Status: Current everyday Tobacco user Tobacco use type: Cigarette Cigarette Packs Per Day: 1.5 Cigarettes Per Day: 30.0 Second Hand Smoke Exposure: Yes Substance Use Type: Crack/Cocaine Advance Directives: No Advance Directives Information Provided: No Patient : No service: Yes (Yaz reported a history of serving in the [employer].) Current occupational status: unemployed Sexual orientation: Straight/Heterosexual Physical Exam Vital Signs: Vital Signs: Last Vital Signs Temp 98.5 F 06/13/21 20:10 Pulse 85 06/13/21 20:10 Resp 16 06/13/21 22:00 BP 145/102 H 06/13/21 20:10 Pulse Ox 99 06/13/21 20:10 Body Mass Index 29.8 Appearance: Alert. Oriented X3. No acute distress. Anxious, confabulating and manipulative Eyes: PERRLA, No Nystagmus ENT: Pharynx normal. Oral Mucosa moist Neck: Normal inspection. Neck supple. CVS: Normal heart rate and rhythm. Pulses normal. Respiratory: No respiratory distress. Equal air entry bilateral, no wheezing/rales/rhonchi Abdomen: Soft and nontender. Bowel sounds are present, no mass palpable, no CVA tenderness Skin: Skin warm and dry. Normal skin color. Normal skin turgor. Extremities: No lower extremity edema. No calf tenderness Neuro: Oriented X 3. Right leg 3/5, left 4/5 decrease sensation to light touch and pinprick to the right leg DTR decreased bilateral lower extremity Const: Orientation/consciousness: patient oriented x3 Neuro: General: patient oriented x3, tone normal, moves all extremities, CN's II-XI intact bilaterally and normal sensation to monofilament Deep tendon reflexes (DTR's): Right patellar reflex intensity grade: 1+ and Left patellar reflex intensity grade: 2+ MDM - Chest Pain MDM Narrative Medical decision making narrative: Patient with multiple psychiatric history with stable MS lesions as per old notes comes for right-sided weakness asking for medication to sleep and relax workup shows patient has chronic right leg weakness CRP slightly elevated at this time we will hold any IV Solu-Medrol advised to follow with neurologist tomorrow Lab Data Attestation: I reviewed the patient's lab results. Result diagrams: 06/13/21 20:53 06/13/21 20:53 Labs: Lab Results 06/13/21 06/13/21 06/13/21 Range/Units 20:53 20:53 20:53 WBC 7.3 (4.8-10.8) X10*3/uL RBC 4.54 (4.20-5.50) X10*6/uL Hgb 11.7 L (12.0-16.0) g/dl Hct 37.3 (37-47) % MCV 82.2 (80-98) fL MCH 25.8 L (27.0-33.0) pg MCHC 31.4 (31.0-35.0) g/dl RDW 18.6 H (11.0-16.0) % Plt Count 372 D (160-400) X10*3/uL MPV 11.5 (9.4-12.3) fL Immature Gran % (Auto) 0.5 H (0.0-0.4) % Neut % (Auto) 41.9 L (45-73) % Lymph % (Auto) 45.9 H (20-40) % [place] % (Auto) 8.7 (2-11) % Eos % (Auto) 2.0 (0-4) % Baso % (Auto) 1.0 (0-2) % Lymph # (Auto) 3.4 (1.2-4.9) X10*3/uL [place] # (Auto) 0.6 (0.1-1.2) X10*3/uL Eos # (Auto) 0.2 (0.0-0.4) X10*3/uL Baso # (Auto) 0.1 (0.0-0.2) X10*3/uL Abs Immat Gran (auto) 0.04 H (0.00-0.03) X10*3/uL Absolute Neuts (auto) 3.1 (2.0-8.3) X10*3/uL Absolute Nucleated RBC 0.000 (0.0-0.012) X10*3/uL Nucleated RBC % (auto) 0.0 (0.0-0.2) /100WBC Sodium 141 (135-145) mmol/L Potassium 3.8 (3.3-5.1) mmol/L Chloride 109 H (96-108) mmol/L Carbon Dioxide 22 (22-29) mmol/L Anion Gap 14 (12-20) BUN 12 D (9-16) mg/dL Creatinine 0.84 (0.5-1.4) mg/dL Estim Creat Clear Calc 105.2 Estimated GFR > 60 Random Glucose 82 (60-115) mg/dL Calcium 9.8 (8.4-10.2) mg/dL Total Bilirubin (0.0-1.0) mg/dL Direct Bilirubin (0.0-0.5) mg/dL AST (5-31) U/L ALT (0-31) U/L Alkaline Phosphatase (39-117) U/L Troponin I High Sens < 3.5 (<3.5-17.0) ng/L C-Reactive Protein 0.53 H (< or = 0.50) mg/dL Total Protein (6.5-8.0) g/dL Albumin (3.5-5.0) g/dL 06/13/21 Range/Units 20:53 WBC (4.8-10.8) X10*3/uL RBC (4.20-5.50) X10*6/uL Hgb (12.0-16.0) g/dl Hct (37-47) % MCV (80-98) fL MCH (27.0-33.0) pg MCHC (31.0-35.0) g/dl RDW (11.0-16.0) % Plt Count (160-400) X10*3/uL MPV (9.4-12.3) fL Immature Gran % (Auto) (0.0-0.4) % Neut % (Auto) (45-73) % Lymph % (Auto) (20-40) % [place] % (Auto) (2-11) % Eos % (Auto) (0-4) % Baso % (Auto) (0-2) % Lymph # (Auto) (1.2-4.9) X10*3/uL [place] # (Auto) (0.1-1.2) X10*3/uL Eos # (Auto) (0.0-0.4) X10*3/uL Baso # (Auto) (0.0-0.2) X10*3/uL Abs Immat Gran (auto) (0.00-0.03) X10*3/uL Absolute Neuts (auto) (2.0-8.3) X10*3/uL Absolute Nucleated RBC (0.0-0.012) X10*3/uL Nucleated RBC % (auto) (0.0-0.2) /100WBC Sodium (135-145) mmol/L Potassium (3.3-5.1) mmol/L Chloride (96-108) mmol/L Carbon Dioxide (22-29) mmol/L Anion Gap (12-20) BUN (9-16) mg/dL Creatinine (0.5-1.4) mg/dL Estim Creat Clear Calc Estimated GFR Random Glucose (60-115) mg/dL Calcium (8.4-10.2) mg/dL Total Bilirubin 0.4 (0.0-1.0) mg/dL Direct Bilirubin < 0.2 (0.0-0.5) mg/dL AST 14 D (5-31) U/L ALT 7 (0-31) U/L Alkaline Phosphatase 58 (39-117) U/L Troponin I High Sens (<3.5-17.0) ng/L C-Reactive Protein (< or = 0.50) mg/dL Total Protein 8.0 D (6.5-8.0) g/dL Albumin 4.5 D (3.5-5.0) g/dL ECG Data ECG #1: Attestation: I personally reviewed and interpreted this ECG as follows: Interpretation: Normal sinus rhythm heart rate 81 beats per minute mild LVH nonspecific ST T wave changes QT interval 508 milliseconds no acute ischemia Discharge Plan Discharge Clinical Impression: Weakness, Multiple sclerosis, Atypical chest pain, Anxiety Patient Disposition: Home, Self-Care Instructions: Chest Pain (ED), Multiple Sclerosis (DC), Anxiety (ED) Additional Instructions: Continue your medications and follow up with your neurologist and therapist Prescriptions: No Action diphenhydramine HCl [Allergy Relief(diphenhydramin)] 25 mg Tablet 75 mg PO TID PRN (Reason: mild anxiety) Qty: 90 RF: 0 nicotine (polacrilex) 2 mg Gum 4 mg buccal Q2H PRN (Reason: Nicotine Cravings) Qty: 60 RF: 0 gabapentin 400 mg Capsule 800 mg PO TID Qty: 90 RF: 0 quetiapine 200 mg Tablet 200 mg PO BEDTIME Qty: 30 RF: 0 divalproex 500 mg Tablet,Delayed Release (Dr/Ec) 500 mg PO BID Qty: 60 RF: 0 trazodone 100 mg Tablet 300 mg PO BEDTIME Qty: 90 RF: 0 baclofen 10 mg Tablet 10 mg PO TID Qty: 90 RF: 0 amlodipine 10 mg Tablet 10 mg PO DAILY Qty: 30 RF: 0 albuterol sulfate [Ventolin HFA] 90 mcg/actuation Hfa Aerosol Inhaler 2 puff inhalation Q4H PRN (Reason: Shortness Of Breath) Qty: 0 RF: 0 lidocaine [Lidocaine Pain Relief] 4 % Adhesive Patch,Medicated 1 patch transdermal DAILY Qty: 30 RF: 0 quetiapine 100 mg Tablet 100 mg PO Q6H PRN (Reason: moderate anxiety to severe) Qty: 90 RF: 0 docusate sodium 100 mg Capsule 100 mg PO BID Qty: 60 RF: 0 omeprazole 20 mg Capsule,Delayed Release(Dr/Ec) 20 mg PO BID@0630,1630 Qty: 60 RF: 0 multivitamin with folic acid [Tab-A-Karen] 400 mcg Tablet 1 tab PO DAILY Qty: 30 RF: 0 Zyrtec 10 mg capsule 10 mg PO DAILY Qty: 30 RF: 0 Bengay Ultra Strength 4-30-10 % cream 1 appl topical BID PRN (Reason: back pain) Qty: 113 RF: 0
--- NOTE | 2021-06-13 20:40 | ECG_ITS ---
Test Reason : CP Blood Pressure : / mmHG Vent. Rate : 081 BPM Atrial Rate : 081 BPM P-R Int : 150 ms QRS Dur : 086 ms QT Int : 438 ms P-R-T Axes : 049 -21 016 degrees QTc Int : 508 ms Normal sinus rhythm Minimal voltage criteria for LVH, may be normal variant Nonspecific T wave abnormality Prolonged QT Abnormal ECG When compared with ECG of 20-APR-2021 19:17, QT has lengthened Referred By: Guanakito Roman Electronically Signed By:SIRI ZULETA
[2021-06-13] MEDS: LORazepam 1 MG TABLET PO (20:50)
--- NOTE | 2021-06-13 20:59 | PC.NURSE ---
EKG obtained. IV established, labs obtained.
[2021-06-13 21:05] LABS: MANUAL DIFF FLAG NO
[2021-06-13 21:06] LABS: Basophils Absolute Auto 0.1 X10*3/uL (0.0-0.2); Eosinophils Absolute Auto 0.2 X10*3/uL (0.0-0.4); Hematocrit 37.3 % (37-47); Hemoglobin 11.7 g/dl (12.0-16.0); Imm Gran Abs Auto 0.04 X10*3/uL (0.00-0.03); Imm Gran Pct Auto 0.5 % (0.0-0.4); Lymphocytes Absolute Auto 3.4 X10*3/uL (1.2-4.9); Lymphocytes Percent Auto 45.9 % (20-40); Mean Corpuscular HGB Conc 31.4 g/dl (31.0-35.0); Mean Corpuscular Hemoglobin 25.8 pg (27.0-33.0); Mean Corpuscular Volume 82.2 fL (80-98); Mean Platelet Volume 11.5 fL (9.4-12.3); Monocytes Absolute Auto 0.6 X10*3/uL (0.1-1.2); Monocytes Percent Auto 8.7 % (2-11); Neutrophils Absolute Auto 3.1 X10*3/uL (2.0-8.3); Neutrophils Percent Auto 41.9 % (45-73); Platelet Count 372 X10*3/uL (160-400); Red Blood Count 4.54 X10*6/uL (4.20-5.50); Red Cell Distribution Width 18.6 % (11.0-16.0); White Blood Count 7.3 X10*3/uL (4.8-10.8)
[2021-06-13 21:19] LABS: Anion Gap 14 (12-20); Blood Urea Nitrogen 12 mg/dL (9-16); C Reactive Protein 0.53 mg/dL (< or = 0.50); Calcium 9.8 mg/dL (8.4-10.2); Carbon Dioxide 22 mmol/L (22-29); Chloride 109 mmol/L (96-108); Creatinine Clr Calc Pharmacy 105.2; Estimated Glomerular Filt Rate > 60; Glucose Random 82 mg/dL (60-115); Potassium 3.8 mmol/L (3.3-5.1); Sodium 141 mmol/L (135-145)
[2021-06-13 21:26] LABS: Alanine Aminotransferase 7 U/L (0-31); Albumin Level 4.5 g/dL (3.5-5.0); Alkaline Phosphatase 58 U/L (39-117); Aspartate Amino Transferase 14 U/L (5-31); Bilirubin Direct < 0.2 mg/dL (0.0-0.5); Bilirubin Total 0.4 mg/dL (0.0-1.0)
[2021-06-13 21:27] LABS: Troponin-I High Sensitivity < 3.5 ng/L (<3.5-17.0)
[2021-06-13 22:00] VITALS: RESP 16
[2021-06-13] MEDS: oxyCODONE HCl Immed Release 5 MG TABLET 10 MG PO (22:01)
--- NOTE | 2021-06-13 22:14 | PC.NURSE ---
IV reestablished, IVF infusing per MAR. Plan to hydrate and repeat DDimer.
--- NOTE | 2021-06-13 22:15 | PC.NURSE ---
Pt medicated per DEC. Pt requesting food/drink, provided with such.
[2021-06-14] VITALS: RESP 16
--- NOTE | 2021-06-14 01:03 | PC.NURSE ---
Pt remains asleep in bed at this time in NAD. Continue to monitor.
[2021-06-14 02:00] VITALS: RESP 18
[2021-06-14 04:00] VITALS: RESP 16
--- NOTE | 2021-06-14 05:31 | PC.NURSE ---
Per Charge Nurse, plan for pt to be transported @ 0800 by [facility] to Respit in [place]. Pt remains asleep in bed at this time in [facility].
== END 2021-06-14 09:50 | disposition home or self-care (01) ==
PROVIDERS: Emergency Provider Internal Medicine
DX: G35 Multiple sclerosis (principal); R07.9 Chest pain, unspecified; F14.10 Cocaine abuse, uncomplicated; F43.10 Post-traumatic stress disorder, unspecified; F17.210 Nicotine dependence, cigarettes, uncomplicated; F41.1 Generalized anxiety disorder; F43.0 Acute stress reaction; Z79.899 Other long term (current) drug therapy; Z71.6 Tobacco abuse counseling
CPT/HCPCS: 36415; 80048; 80076; 84484; 85025; 86140; 93005; 99284

== ENCOUNTER 2021-06-20 13:51 | Emergency (ER) | payer OTHER, SELFPAY ==
[2021-06-20 14:09] VITALS: BP 120/88; BP 158/88; PULSE 88; PULSE 92; RESP 17; TEMP 36.8; O2SAT 98; O2SAT 99; BMI 29.8
[2021-06-20 14:51] LABS: Appearance Urine CLOUDY; Color Urine YELLOW; Glucose Urine UA NEG (NEG); Leukocyte Esterase Urine 2+ (NEG); Nitrite Urine NEG (NEG); Specific Gravity - Urine 1.025 (1.005-1.025); UACC Culture Trigger YES; Urine Blood 1+ (NEG); Urine Ketones NEG (NEG); Urine Protein TRACE MG/DL (NEG-TRACE)
[2021-06-20 14:55] LABS: Bacteria Urine 1+ /LPF; Mucus Urine 1+ /LPF; RBC Urine 0-2 /HPF (0); Squamous Epithelial Cell Urine 1+ /LPF; WBC Urine TNTC /HPF (0-4)
--- NOTE | 2021-06-20 15:52 | ED.FEMALEGU ---
HPI - Female Genitourinary General Chief complaint: Urogenital-Female Stated complaint: BURNING AND INCONTINENCE,? UTI Time Seen by Provider: 06/20/21 15:51 Source: patient Mode of arrival: ambulatory Limitations: no limitations History of Present Illness HPI Narrative: 46 y/o female presenting to the ER with history of MS who is wheelchair bound, history of PTSD, depression, cocaine use, ETOH abuse who presents with 5 days of worsening painful urination and urinary frequency. She also reports urinary incontinence at night. She has had no fevers, chills, N/V, abdominal pain or back pain. She has had no blood in her urine. No vaginal discharge. No concern for STI. MD elicited complaint: UTI Onset (ago): day(s) (5) Location of symptoms: external genitalia and suprapubic Severity: severe Female Urogenital Radiation: Non-Radiating Severity scale (1-10): 9 Quality of pain: burning Consistency: intermittent Vaginal discharge: none Vaginal bleeding: none Urinary symptoms: Dysuria, Urgency, Frequency and Foul Smelling Urine Exacerbating factors: urination Relieving factors: none Associated symptoms: denies other symptoms Treatment prior to arrival: none Sexual activity: No Patient : No Related Data Previous Rx's Medication Instructions Recorded albuterol sulfate 90 mcg/actuation 2 puff INHALATION Q4H PRN #0 g 05/03/21 aerosol inhaler (Ventolin HFA) amlodipine 10 mg tablet 10 mg PO DAILY #30 tab 05/03/21 baclofen 10 mg tablet 10 mg PO TID #90 tab 05/03/21 camphor 4 %-methyl salicylate 30 1 appl TOPICAL BID PRN #113 g 05/03/21 %-menthol 10 % topical cream (Bengay Ultra Strength) cetirizine 10 mg capsule (Zyrtec) 10 mg PO DAILY #30 cap 05/03/21 diphenhydramine HCl 25 mg tablet 75 mg PO TID PRN #90 tab 05/03/21 (Allergy Relief (diphenhydramine)) divalproex 500 mg tablet,delayed 500 mg PO BID #60 tab 05/03/21 release docusate sodium 100 mg capsule 100 mg PO BID #60 cap 05/03/21 gabapentin 400 mg capsule 800 mg PO TID #90 cap 05/03/21 lidocaine 4 % topical patch 1 patch TRANSDERMAL DAILY #30 ea 07/26/21 (Lidocaine Pain Relief) multivitamin with folic acid 400 1 tab PO DAILY #30 tab 05/03/21 mcg tablet (Tab-A-Karen) nicotine (polacrilex) 2 mg gum 4 mg BUCCAL Q2H PRN #60 ea 05/03/21 omeprazole 20 mg capsule,delayed 20 mg PO BID@0630,1630 #60 cap 05/03/21 release quetiapine 100 mg tablet 100 mg PO Q6H PRN #90 tab 05/03/21 quetiapine 200 mg tablet 200 mg PO BEDTIME #30 tab 05/03/21 trazodone 100 mg tablet 300 mg PO BEDTIME #90 tab 05/03/21 cefuroxime axetil 500 mg tablet 500 mg PO BID 7 Days #14 tab 06/20/21 phenazopyridine 100 mg tablet 100 mg PO TID PRN #6 tab 06/20/21 (Pyridium) Allergies Allergy/AdvReac Type Severity Reaction Status Date / Time Iodinated Contrast Media Allergy Severe ANAPHYLAXIS Verified 06/13/21 20:16 [CONTRAST, IV] ibuprofen [From Motrin] Allergy Intermediate SWELLING Verified 06/13/21 20:16 morphine [MORPHINE] Allergy Intermediate RASH Verified 06/13/21 20:16 acetaminophen [From TYLENOL] Allergy Mild HIVES Verified 06/13/21 20:16 bee pollen [Bee Stings] Allergy Mild UNKNOWN Verified 06/13/21 20:16 coconut Allergy Mild HIVES/SWELL Verified 06/13/21 20:16 ING latex [Latex] Allergy Mild HIVES Verified 06/13/21 20:16 NSAIDS (Non-Steroidal Allergy Mild HIVES Verified 06/13/21 20:16 Anti-Inflamma [NSAIDS (NON-STEROIDAL ANTI-INFLAMMA] aspirin [ASA] Allergy Unknown HIVES Verified 06/13/21 20:16 tramadol [TRAMADOL] Allergy Unknown UNKNOWN Verified 06/13/21 20:16 turkey Allergy Unknown UNKNOWN Verified 06/13/21 20:16 lidocaine Allergy Rash Verified 06/13/21 20:16 From Vicodin Allergy Mild RASH Uncoded 06/13/21 20:16 Review of Systems Review of Systems: Constitutional: No Fever, No Chills Cardiovascular: No Chest Pain, No SOB Respiratory: No Cough, No Sputum Gastrointestinal: No Nausea, No Vomiting, No Diarrhea, No abdominal Pain Genitourinary: + Dysuria, + Urinary Frequency, No Hematuria Musculoskeletal: No joint pain, No Myalgias Skin: No Skin Lesions, No rash PMFSH Past Medical History Medical History Alcohol abuse Asthma section wound complication Cocaine abuse Diabetes Fall GERD (gastroesophageal reflux disease) History of seizure Hypertension MDD (major depressive disorder), recurrent episode, severe Multiple sclerosis Multiple sclerosis Multiple sclerosis exacerbation Surgical History History of left ankle joint replacement History of thoracic surgery Social History Social History Household Members: None Housing: Homeless Do you presently have visiting nurse or other home services: No Alcohol intake: unknown Patient Tobacco Use Status: Current everyday Tobacco user Tobacco use type: Cigarette Cigarette Packs Per Day: 1.5 Cigarettes Per Day: 30.0 Second Hand Smoke Exposure: Yes Substance Use Type: Crack/Cocaine Advance Directives: No Advance Directives Information Provided: No Patient : No service: Yes (Yaz reported a history of serving in the [employer].) Current occupational status: unemployed Sexual orientation: Straight/Heterosexual Physical Exam Vital Signs: Vital Signs: Last Vital Signs Temp 98.2 F 06/20/21 14:09 Pulse 88 06/20/21 14:09 Resp 17 06/20/21 14:09 BP 120/88 06/20/21 14:09 Pulse Ox 99 06/20/21 14:09 Body Mass Index 29.8 Appearance: Alert. Oriented X3. No acute distress. Eyes: Normal external inspection ENT: Pharynx normal. Neck: Normal inspection. Neck supple. Respiratory: No respiratory distress. Abdomen: Morbidly obese, Soft and nontender. +BS x4. Pelvic deferred. Skin: Skin warm and dry. Normal skin color. Normal skin turgor. No rashes. Extremities: No lower extremity edema. Neuro: Oriented X 3. Nonfocal. .gait not tested due to wheelchair bound status Course Course Course Narrative: 46 y/o female presenting with signs and symptoms of UTI. VS are normal. UA is grossly positive for infection. No symptoms of pyelonephritis or sepsis. Will start Ceftin and Pyridium for acute UTI. Stable for d/c home with PO abx and outpatient follow up. MDM - Female Genitourinary Lab Data Labs: Lab Results 06/20/21 Range/Units 14:24 Urine Color YELLOW Urine Appearance CLOUDY Urine pH 6.0 (5.0-8.0) Ur Specific [place] 1.025 (1.005-1.025) Urine Protein TRACE (NEG-TRACE) MG/DL Urine Glucose (UA) NEG (NEG) MG/DL Urine Ketones NEG (NEG) MG/DL Urine Blood 1+ H (NEG) Urine Nitrite NEG (NEG) Ur Leukocyte Esterase 2+ H (NEG) Urine RBC 0-2 (0) /HPF Urine WBC TNTC H (0-4) /HPF Ur Squamous Epith Cells 1+ /LPF Urine Bacteria 1+ /LPF Urine Mucus 1+ /LPF Discharge Plan Discharge Clinical Impression: Urinary tract infection Qualifiers: Urinary tract infection type: acute cystitis Hematuria presence: with hematuria Qualified Code(s): N30.01 - Acute cystitis with hematuria Patient Disposition: Home, Self-Care Instructions: Urinary Tract Infection in Women (ED) Additional Instructions: Take the prescribed antibiotic as directed. Take the 1st dose starting tomorrow - you were given the 1st dose today in the ER. Take the prescribed pyridium medication as needed for bladder pain - this medication can turn your urine orange in color which is a normal side effect. Stay hydrated, drink plenty of water. Follow up with your doctor as needed. If you develop fevers, vomiting or any other worsening symptoms come back to the ER for further evaluation. Prescriptions: New cefuroxime axetil 500 mg tablet 500 mg PO BID 7 Days Qty: 14 RF: 0 phenazopyridine [Pyridium] 100 mg tablet 100 mg PO TID PRN (Reason: pain) Qty: 6 RF: 0 No Action diphenhydramine HCl [Allergy Relief(diphenhydramin)] 25 mg Tablet 75 mg PO TID PRN (Reason: mild anxiety) Qty: 90 RF: 0 nicotine (polacrilex) 2 mg Gum 4 mg buccal Q2H PRN (Reason: Nicotine Cravings) Qty: 60 RF: 0 gabapentin 400 mg Capsule 800 mg PO TID Qty: 90 RF: 0 quetiapine 200 mg Tablet 200 mg PO BEDTIME Qty: 30 RF: 0 divalproex 500 mg Tablet,Delayed Release (Dr/Ec) 500 mg PO BID Qty: 60 RF: 0 trazodone 100 mg Tablet 300 mg PO BEDTIME Qty: 90 RF: 0 baclofen 10 mg Tablet 10 mg PO TID Qty: 90 RF: 0 amlodipine 10 mg Tablet 10 mg PO DAILY Qty: 30 RF: 0 albuterol sulfate [Ventolin HFA] 90 mcg/actuation Hfa Aerosol Inhaler 2 puff inhalation Q4H PRN (Reason: Shortness Of Breath) Qty: 0 RF: 0 lidocaine [Lidocaine Pain Relief] 4 % Adhesive Patch,Medicated 1 patch transdermal DAILY Qty: 30 RF: 0 quetiapine 100 mg Tablet 100 mg PO Q6H PRN (Reason: moderate anxiety to severe) Qty: 90 RF: 0 docusate sodium 100 mg Capsule 100 mg PO BID Qty: 60 RF: 0 omeprazole 20 mg Capsule,Delayed Release(Dr/Ec) 20 mg PO BID@0630,1630 Qty: 60 RF: 0 multivitamin with folic acid [Tab-A-Karen] 400 mcg Tablet 1 tab PO DAILY Qty: 30 RF: 0 Zyrtec 10 mg capsule 10 mg PO DAILY Qty: 30 RF: 0 Bengay Ultra Strength 4-30-10 % cream 1 appl topical BID PRN (Reason: back pain) Qty: 113 RF: 0
[2021-06-20] MEDS: Phenazopyridine HCL 100 MG TABLET PO (16:18)
== END 2021-06-20 17:15 | disposition home or self-care (01) ==
LOC: HO.ED 16:03
PROVIDERS: Emergency Provider Emergency Medicine
DX: N30.01 Acute cystitis with hematuria (principal); R30.0 Dysuria; R35.0 Frequency of micturition; F14.90 Cocaine use, unspecified, uncomplicated; F17.210 Nicotine dependence, cigarettes, uncomplicated; Z71.6 Tobacco abuse counseling; Z79.899 Other long term (current) drug therapy
CPT/HCPCS: 81001; 87086; 87088; 87186; 99284

== ENCOUNTER 2021-06-21 17:12 | Inpatient (IN) | payer OTHER, SELFPAY ==
--- NOTE | ~2021-06-21 | XR_ITS ---
Examination: XR knee RT 4V, XR tibia fibula LT 2V, XR tibia fibula RT 2V, XR knee LT 4V Indication: Pain Comparison: 07/25/2019 plain films of the left knee and 06/19/2019 images of the left ankle Technique: 4 views of each knee with 2 views of each tibia and fibula obtained. Findings: Right knee: No significant joint effusion. Bones are normal anatomic alignment with no acute fracture or dislocation seen. Minimal degenerative change is mild loss of joint space in the medial compartment. No acute bony destructive lesion. Right tibia and fibula: Bones are normal anatomic alignment with no acute fracture or dislocation seen. Ankle mortise appears grossly intact. Junk soft tissues unremarkable. Left knee: No significant joint effusion. Bones are normal anatomic alignment with no acute fracture or dislocation seen. Mild degenerative changes is seen again more so in the medial compartment where there is mild loss of joint space. No acute underlying bony abnormality. Left tibia and fibula: Patient status post plate-screw fixation of the distal tibia and distal fibula. Hardware appears grossly intact with no evidence for hardware failure or periprosthetic fracture when compared to the 06/19/2019 study. 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 No acute bony abnormality. XR/XR tibia fibula RT 2V Impression: Chronic appearing degenerative and postoperative changes as described. I do not appreciate any acute bony abnormality.
--- NOTE | ~2021-06-21 | XR_ITS ---
Examination: XR knee RT 4V, XR tibia fibula LT 2V, XR tibia fibula RT 2V, XR knee LT 4V Indication: Pain Comparison: 07/25/2019 plain films of the left knee and 06/19/2019 images of the left ankle Technique: 4 views of each knee with 2 views of each tibia and fibula obtained. Findings: Right knee: No significant joint effusion. Bones are normal anatomic alignment with no acute fracture or dislocation seen. Minimal degenerative change is mild loss of joint space in the medial compartment. No acute bony destructive lesion. Right tibia and fibula: Bones are normal anatomic alignment with no acute fracture or dislocation seen. Ankle mortise appears grossly intact. Junk soft tissues unremarkable. Left knee: No significant joint effusion. Bones are normal anatomic alignment with no acute fracture or dislocation seen. Mild degenerative changes is seen again more so in the medial compartment where there is mild loss of joint space. No acute underlying bony abnormality. Left tibia and fibula: Patient status post plate-screw fixation of the distal tibia and distal fibula. Hardware appears grossly intact with no evidence for hardware failure or periprosthetic fracture when compared to the 06/19/2019 study. 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 No acute bony abnormality. XR/XR knee RT 4V Impression: Chronic appearing degenerative and postoperative changes as described. I do not appreciate any acute bony abnormality.
--- NOTE | ~2021-06-21 | XR_ITS ---
Examination: XR knee RT 4V, XR tibia fibula LT 2V, XR tibia fibula RT 2V, XR knee LT 4V Indication: Pain Comparison: 07/25/2019 plain films of the left knee and 06/19/2019 images of the left ankle Technique: 4 views of each knee with 2 views of each tibia and fibula obtained. Findings: Right knee: No significant joint effusion. Bones are normal anatomic alignment with no acute fracture or dislocation seen. Minimal degenerative change is mild loss of joint space in the medial compartment. No acute bony destructive lesion. Right tibia and fibula: Bones are normal anatomic alignment with no acute fracture or dislocation seen. Ankle mortise appears grossly intact. Junk soft tissues unremarkable. Left knee: No significant joint effusion. Bones are normal anatomic alignment with no acute fracture or dislocation seen. Mild degenerative changes is seen again more so in the medial compartment where there is mild loss of joint space. No acute underlying bony abnormality. Left tibia and fibula: Patient status post plate-screw fixation of the distal tibia and distal fibula. Hardware appears grossly intact with no evidence for hardware failure or periprosthetic fracture when compared to the 06/19/2019 study. 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 No acute bony abnormality. XR/XR knee LT 4V Impression: Chronic appearing degenerative and postoperative changes as described. I do not appreciate any acute bony abnormality.
--- NOTE | ~2021-06-21 | XR_ITS ---
Examination: XR knee RT 4V, XR tibia fibula LT 2V, XR tibia fibula RT 2V, XR knee LT 4V Indication: Pain Comparison: 07/25/2019 plain films of the left knee and 06/19/2019 images of the left ankle Technique: 4 views of each knee with 2 views of each tibia and fibula obtained. Findings: Right knee: No significant joint effusion. Bones are normal anatomic alignment with no acute fracture or dislocation seen. Minimal degenerative change is mild loss of joint space in the medial compartment. No acute bony destructive lesion. Right tibia and fibula: Bones are normal anatomic alignment with no acute fracture or dislocation seen. Ankle mortise appears grossly intact. Junk soft tissues unremarkable. Left knee: No significant joint effusion. Bones are normal anatomic alignment with no acute fracture or dislocation seen. Mild degenerative changes is seen again more so in the medial compartment where there is mild loss of joint space. No acute underlying bony abnormality. Left tibia and fibula: Patient status post plate-screw fixation of the distal tibia and distal fibula. Hardware appears grossly intact with no evidence for hardware failure or periprosthetic fracture when compared to the 06/19/2019 study. 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 No acute bony abnormality. XR/XR tibia fibula LT 2V Impression: Chronic appearing degenerative and postoperative changes as described. I do not appreciate any acute bony abnormality.
[2021-06-21 17:25] VITALS: BP 148/96; PULSE 94; O2SAT 98
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
[2021-06-21 17:36] VITALS: BP 147/102; PULSE 96; RESP 19; TEMP 36.9; O2SAT 99; BMI 29.8
[2021-06-21 17:42] VITALS: BP 147/102; PULSE 96; RESP 19; TEMP 36.9; O2SAT 99
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
--- NOTE | 2021-06-21 18:19 | PC.NURSE ---
[facility] contacted, Geological Engineer [place]on stated a clinician will be out within 40 minutes, per pt's mother, they were at [facility] last week and she feels that the patient needs more help
[2021-06-21 18:20] LABS: UPreg QC Valid YES; Urine Pregnancy NEGATIVE (NEGATIVE)
[2021-06-21 18:33] LABS: Amphetamine Screen Urine Not Detected (Not Detect); Barbiturates, Urine Not Detected (Not Detect); Benzodiazepines Screen Urine Not Detected (Not Detect); Cannabinoid Screen Urine Not Detected (Not Detect); Cocaine Screen Urine POSITIVE (Not Detect); Fentanyl, urine Not Detected (Not Detect); Opiate Screen Urine Not Detected (Not Detect); Phencyclidine Screen Urine Not Detected (Not Detect)
[2021-06-21 19:35] LABS: Basophils Percent Auto 0.5 % (0-2); Hemoglobin 11.2 g/dl (12.0-16.0); MANUAL DIFF FLAG SCAN; PLT CLUMP 1; Red Cell Distribution Width 18.4 % (11.0-16.0); SCAN SMEAR FLAG 1
[2021-06-21 19:37] LABS: Eosinophils Absolute Auto 0.1 X10*3/uL (0.0-0.4); Eosinophils Percent Auto 0.8 % (0-4); Hematocrit 36.1 % (37-47); Imm Gran Abs Auto 0.05 X10*3/uL (0.00-0.03); Imm Gran Pct Auto 0.8 % (0.0-0.4); Lymphocytes Absolute Auto 2.4 X10*3/uL (1.2-4.9); Lymphocytes Percent Auto 36.8 % (20-40); Mean Corpuscular Hemoglobin 25.9 pg (27.0-33.0); Mean Corpuscular Volume 83.6 fL (80-98); Monocytes Absolute Auto 0.4 X10*3/uL (0.1-1.2); Monocytes Percent Auto 6.6 % (2-11); Neutrophils Absolute Auto 3.5 X10*3/uL (2.0-8.3); Neutrophils Percent Auto 54.5 % (45-73); Red Blood Count 4.32 X10*6/uL (4.20-5.50); White Blood Count 6.4 X10*3/uL (4.8-10.8)
[2021-06-21 19:40] LABS: PLT ABN DIST 1
[2021-06-21 19:53] LABS: Alanine Aminotransferase < 6 U/L (0-31); Albumin Level 4.2 g/dL (3.5-5.0); Alkaline Phosphatase 61 U/L (39-117); Anion Gap 11 (12-20); Aspartate Amino Transferase 9 U/L (5-31); Bilirubin Total 0.2 mg/dL (0.0-1.0); Blood Urea Nitrogen 11 mg/dL (9-16); Calcium 9.8 mg/dL (8.4-10.2); Carbon Dioxide 23 mmol/L (22-29); Chloride 110 mmol/L (96-108); Creatinine Clr Calc Pharmacy 109.3; Estimated Glomerular Filt Rate > 60; Glucose Random 85 mg/dL (60-115); Potassium 4.1 mmol/L (3.3-5.1); Sodium 140 mmol/L (135-145); Total Protein 7.1 g/dL (6.5-8.0)
[2021-06-21 19:54] LABS: Ethanol < 10 mg/dL
[2021-06-21 20:08] LABS: COVID-19 Test Negative (Negative); IDNOW Serial# 9DD0AD1C
[2021-06-21 20:30] LABS: SLIDE REVIEW VERIFIED
[2021-06-21] MEDS: Baclofen 10 MG TABLET PO (21:54)
[2021-06-21] MEDS: Divalproex Sodium 500 MG TABLET.DR PO (21:54)
[2021-06-21] MEDS: QUEtiapine Fumarate 200 MG TABLET PO (21:54)
[2021-06-21] MEDS: Gabapentin 400 MG CAPSULE 800 MG PO (21:54)
--- NOTE | 2021-06-22 | ECG_ITS ---
Test Reason : MED CLEARANCE Blood Pressure : / mmHG Vent. Rate : 076 BPM Atrial Rate : 076 BPM P-R Int : 166 ms QRS Dur : 090 ms QT Int : 382 ms P-R-T Axes : 054 -06 004 degrees QTc Int : 429 ms Normal sinus rhythm Nonspecific T wave abnormality Abnormal ECG When compared with ECG of 13-JUN-2021 20:48, Nonspecific T wave abnormality, worse in Inferior leads Nonspecific T wave abnormality, worse in Lateral leads QT has shortened Referred By: Mick Maier Electronically Signed By:SIRI ZULETA
[2021-06-22 05:44] VITALS: BP 128/76; PULSE 74; RESP 16; TEMP 36.7; O2SAT 94
--- NOTE | 2021-06-22 05:52 | PC.NURSE ---
Patient slept through the night, no distress observed/reported, patient got evaluated by [facility] and patient's disposition section 12 inpatient bed search, patient compliant medication, appetite good, ambulated well and safely with her cane, behavior at baseline, will continue to monitor.
--- NOTE | 2021-06-22 07:08 | PC.NURSE ---
Report from Geoff RN, pt sleeping at this time, resp reg and even, NAD. Pt currently a section 12 bedsearch.
[2021-06-22 08:59] VITALS: BP 134/91; PULSE 75
[2021-06-22] MEDS: Gabapentin 400 MG CAPSULE 800 MG PO ×3 (08:59→19:42)
[2021-06-22] MEDS: Baclofen 10 MG TABLET PO ×2 (08:59→19:42)
[2021-06-22] MEDS: amLODIPine Besylate 5 MG TABLET PO (08:59)
[2021-06-22] MEDS: Divalproex Sodium 500 MG TABLET.DR PO ×2 (09:00→19:42)
[2021-06-22] MEDS: Omeprazole 40 MG CAPSULE.DR PO (09:00)
[2021-06-22 09:10] VITALS: BP 134/91; PULSE 75; RESP 16; TEMP 37; O2SAT 98
[2021-06-22] MEDS: hydrOXYzine HCL 50 MG TABLET PO (15:40)
[2021-06-22] MEDS: QUEtiapine Fumarate 50 MG TABLET PO (15:40)
[2021-06-22 16:00] VITALS: BP 168/90; PULSE 88; RESP 18; TEMP 36.7; O2SAT 98
[2021-06-22] MEDS: Nicotine Polacrilex 2 MG GUM BUCCAL ×2 (16:55→19:43)
--- NOTE | 2021-06-22 18:24 | PC.NURSE ---
patient signed release for Moustapha Nguyễn. phone number [phone]
[2021-06-22] MEDS: LORazepam 1 MG TABLET 2 MG PO (18:37)
--- NOTE | 2021-06-22 19:11 | PC.NURSE ---
Patient admitted from ED on CV. Pt cooperative with admission, stated she is here for SI attempt. Pt states she tried to walk into traffic but fell beforehand. Tox screen + for cocaine. Covid -. 15 min checks initiated for safety.
[2021-06-22 19:35] VITALS: BP 123/73; PULSE 18; RESP 18; TEMP 36.3; O2SAT 95
[2021-06-22] MEDS: QUEtiapine Fumarate 200 MG TABLET PO (19:42)
[2021-06-22] MEDS: traZODone HCL 50 MG TABLET PO (19:49)
--- NOTE | 2021-06-23 | ECG_ITS ---
Test Reason : CHEST PAIN Blood Pressure : / mmHG Vent. Rate : 096 BPM Atrial Rate : 096 BPM P-R Int : 154 ms QRS Dur : 090 ms QT Int : 424 ms P-R-T Axes : 059 -07 070 degrees QTc Int : 535 ms Normal sinus rhythm Possible Left atrial enlargement Nonspecific T wave abnormality Prolonged QT Abnormal ECG When compared with ECG of 22-JUN-2021 11:05, QT has lengthened Referred By: Vinny Vaughan Electronically Signed By:SIRI ZULETA
[2021-06-23] MEDS: QUEtiapine Fumarate 50 MG TABLET PO ×2 (03:40→16:20)
[2021-06-23] MEDS: hydrOXYzine HCL 50 MG TABLET PO ×2 (03:40→16:20)
[2021-06-23 06:00] VITALS: BP 125/69; PULSE 80; RESP 18; TEMP 36.6; O2SAT 100
[2021-06-23 07:50] LABS: Cholesterol 202 mg/dL; HDL Cholesterol 60 mg/dL; LDL Cholesterol Calculated 122 mg/dl; Triglycerides 102 mg/dL
[2021-06-23 08:11] LABS: Thyroid Stimulating Hormone 0.45 uIU/mL (0.32-4.0)
[2021-06-23 08:24] LABS: Estimated Average Glucose 105 mg/dL; Hemoglobin A1c % 5.3 %
[2021-06-23 08:59] LABS: Folate 7.7 ng/mL (> or = 4.0); Vitamin B12 487 pg/mL (200-900)
[2021-06-23 09:00] VITALS: BP 125/69; PULSE 80
[2021-06-23] MEDS: Baclofen 10 MG TABLET PO ×2 (09:00→20:00)
[2021-06-23] MEDS: amLODIPine Besylate 5 MG TABLET PO (09:00)
[2021-06-23] MEDS: Gabapentin 400 MG CAPSULE 800 MG PO ×3 (09:00→20:00)
[2021-06-23] MEDS: Omeprazole 40 MG CAPSULE.DR PO (09:01)
[2021-06-23] MEDS: Divalproex Sodium 500 MG TABLET.DR PO ×2 (09:01→20:01)
[2021-06-23] MEDS: Nicotine Polacrilex 2 MG GUM BUCCAL ×3 (10:06→19:50)
[2021-06-23 11:43] LABS: UPreg QC Valid YES; Urine Pregnancy NEGATIVE (NEGATIVE)
--- NOTE | 2021-06-23 12:50 | P.PNPSI_ITS ---
Subjective Subjective Date of Service: 06/25/21 Reason For Visit: SI Subjective Notes: Conditional Voluntary Interim History: Pt has been more visible in the unit. she reports chronic pain is intolerable and asks for oxycodone, which pt was explained will not be pre scribed while in the unit (ongoing substance use and question if clinically appropriate to treat chronic pain- last admission and this one pt advised to follow up with pain clinic, which she did not. Note that most rx for oxycodne from emergency departments and recent stay at [facility] in [place] but not by regular providers). She reports AH. She does denied suicidal ideation. She states she wants to stay on unit unit next paycheck. Medication Compliance: Yes Side effects from medications: Yes Attending Groups: Intermittent Review of Systems Acute medical concerns: No Medical Review of Systems: unchanged Review of Systems Review of Systems Gen: no fever Resp: no sob, no cough CV: no chest, no GUERRERO, no leg edema GI: No n/v, no abd pain Neuro: No confusion Yes all other systems are reviewed and are negative Constitutional: Reports as per HPI and Reports no additional constitutional complaints Eyes: Reports as per HPI and Reports no additional eye complaints Reports system reviewed and no additional complaints, except as documented, Reports as per HPI and Reports dizziness Cardiovascular: Reports as per HPI, Reports no additional cardiovascular complaints and Denies dyspnea Respiratory: Reports as per HPI, Reports no additional respiratory complaints and Denies dyspnea Gastrointestinal: Reports as per HPI, Reports no additional gastrointestinal complaints, Reports constipation, Reports GI cramping, Denies dyspepsia, Denies heartburn and Denies nausea Musculoskeletal: Reports no additional musculoskeletal complaints, Reports as per HPI, Reports arthralgias (Bilateral knee pain. Bilateral leg pain. ) and Reports radiating pain into limb Reports system reviewed and no additional complaints, except as documented, Reports as per HPI and Reports dizziness Psychiatric: Reports no additional psychiatric complaints, Reports as per HPI, Reports depression and Reports suicidal ideation Mental Status Exam Mental Status Exam Narrative: Appearance: MO, casually groomed, fair hygiene in NAD Behavior:superficially cooperative, irritable at times psychomotor: no agitation or retardation noted Speech:clear, normal rate/rhythm, spontaneous Thought process:linear Thought content: no signs of psychosis, future oriented Mood: depressed Affect: brighter than reported mood SI:denies HI:none VH/AH:AH Delusions:none Insight/judgment:poor x 2. Memory/cog: alert, oriented x 3. grossly intact to conversational testing. Diagnostics Vital Signs (24Hr): Vital Signs - 24 hr 06/24/21 18:00 06/25/21 09:00 Temperature 98.4 F Pulse Rate 100 91 Respiratory Rate 16 Blood Pressure 140/90 H 117/56 L Pulse Oximetry 100 Body Mass Index 29.8 Labs Results: 06/21/21 19:19 06/21/21 19:19 Imaging Radiology Impressions: ITS Impressions Knee X-Ray 06/21/21 18:02 Impression: Chronic appearing degenerative and postoperative changes as described. I do not appreciate any acute bony abnormality. Knee X-Ray 06/21/21 18:02 Impression: Chronic appearing degenerative and postoperative changes as described. I do not appreciate any acute bony abnormality. Tibia/Fibula X-Ray 06/21/21 18:02 Impression: Chronic appearing degenerative and postoperative changes as described. I do not appreciate any acute bony abnormality. Tibia/Fibula X-Ray 06/21/21 18:02 Impression: Chronic appearing degenerative and postoperative changes as described. I do not appreciate any acute bony abnormality. Medications Medications Current Medications Al Hydroxide/Mg Hydroxide (Magnesium Hydrox/Alum Hydrox 30 Ml Oral.Susp) 30 ml PO Q6H PRN PRN Reason: Heartburn/Nausea Albuterol Sulfate (Albuterol Sulfate 90 Mcg 8 Gm Inhaler) 2 puff INHALE Q4H PRN PRN Reason: Shortness Of Breath Last Admin: 06/24/21 21:44 Dose: 2 puff Documented by: Amlodipine Besylate (Amlodipine Besylate 5 Mg Tablet) 5 mg PO DAILY [facility]; Protocol Last Admin: 06/25/21 09:00 Dose: 5 mg Documented by: Baclofen (Baclofen 10 Mg Tablet) 10 mg PO BID [facility] Last Admin: 06/25/21 09:00 Dose: 10 mg Documented by: Cefuroxime Axetil (Cefuroxime Axetil 500 Mg Tablet) 500 mg PO BID [facility] Last Admin: 06/25/21 09:00 Dose: 500 mg Documented by: Divalproex Sodium (Divalproex Sodium 500 Mg Tablet.) 500 mg PO BID [facility] Last Admin: 06/25/21 08:59 Dose: 500 mg Documented by: Gabapentin (Gabapentin 400 Mg Capsule) 800 mg PO TID [facility] Last Admin: 06/25/21 08:59 Dose: 800 mg Documented by: Hydroxyzine HCl (Hydroxyzine Hcl 50 Mg Tablet) 50 mg PO Q6H PRN PRN Reason: Anxiety Last Admin: 06/25/21 11:12 Dose: 50 mg Documented by: Magnesium Hydroxide (Milk Of Magnesia 30 Ml Oral.Susp) 30 ml PO DAILY PRN PRN Reason: Constipation Last Admin: 06/24/21 03:57 Dose: 30 ml Documented by: Nicotine Polacrilex (Nicotine Polacrilex 2 Mg Gum) 2 mg BUCCAL Q2H PRN PRN Reason: Nicotine Cravings Last Admin: 06/25/21 09:21 Dose: 2 mg Documented by: Omeprazole (Omeprazole 40 Mg Capsule.Dr) 40 mg PO DAILY [facility] Last Admin: 06/25/21 09:00 Dose: 40 mg Documented by: Phenazopyridine HCl (Phenazopyridine Hcl 100 Mg Tablet) 100 mg PO TID PRN PRN Reason: pain Last Admin: 06/24/21 19:06 Dose: 100 mg Documented by: Quetiapine Fumarate (Quetiapine Fumarate 50 Mg Tablet) 50 mg PO Q6H PRN PRN Reason: Anxiety Last Admin: 06/25/21 11:12 Dose: 50 mg Documented by: Quetiapine Fumarate (Quetiapine Fumarate 200 Mg Tablet) 200 mg PO BEDTIME [facility] Last Admin: 06/24/21 20:12 Dose: 200 mg Documented by: Trazodone HCl (Trazodone Hcl 50 Mg Tablet) 50 mg PO BEDTIME PRN PRN Reason: Insomnia Last Admin: 06/24/21 23:57 Dose: 50 mg Documented by: Allergies Allergies Allergy/AdvReac Type Severity Reaction Status Date / Time Iodinated Contrast Media Allergy Severe ANAPHYLAXIS Verified 06/13/21 20:16 [CONTRAST, IV] ibuprofen [From Motrin] Allergy Intermediate SWELLING Verified 06/13/21 20:16 morphine [MORPHINE] Allergy Intermediate RASH Verified 06/13/21 20:16 acetaminophen [From TYLENOL] Allergy Mild HIVES Verified 06/13/21 20:16 bee pollen [Bee Stings] Allergy Mild UNKNOWN Verified 06/13/21 20:16 coconut Allergy Mild HIVES/SWELL Verified 06/13/21 20:16 ING latex [Latex] Allergy Mild HIVES Verified 06/13/21 20:16 NSAIDS (Non-Steroidal Allergy Mild HIVES Verified 06/13/21 20:16 Anti-Inflamma [NSAIDS (NON-STEROIDAL ANTI-INFLAMMA] aspirin [ASA] Allergy Unknown HIVES Verified 06/13/21 20:16 tramadol [TRAMADOL] Allergy Unknown UNKNOWN Verified 06/13/21 20:16 turkey Allergy Unknown UNKNOWN Verified 06/13/21 20:16 lidocaine Allergy Rash Verified 06/13/21 20:16 From Vicodin Allergy Mild RASH Uncoded 06/13/21 20:16 Assessment & Plan Assessment & Plan (1) MDD (major depressive disorder), recurrent episode, severe: Status: Acute Code(s): F33.2 - Major depressive disorder, recurrent severe without psychotic features (2) Cocaine abuse: Status: Acute Code(s): F14.10 - Cocaine abuse, uncomplicated (3) Personality disorder in adult: Status: Acute Code(s): F60.9 - Personality disorder, unspecified Assessment and Plan: Ms. Dumont is a 46 year-old woman with hx of mood disorder, cocaine use, PD, self presented to [facility] ED reporting increased depression in context of cocaine use and lack of stable housing. Pt does admit that she is here in part due to lack of housing and hoping to stay until she gets next check. She reports depressed mood, affect brighter than reported mood. We discusssed risks, bebefits and alternative treatment options, continue seroquel, no control substances will be prescribed. PLAN 1. Admit to [facility] 2. Continue current medications- NO control substances including benzodiazepine nor opioid medications. 3. OBtain collateral information 4. Aftercare planning Greater than 50% of the session was spent on counseling and/or coordination of care Reason for contiued inpatient stay Substantial Risk for: harm to self
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
[2021-06-23 18:00] VITALS: BP 172/90; PULSE 115; RESP 20; TEMP 36.6; O2SAT 99
[2021-06-23] MEDS: Milk of Magnesia 30 ML ORAL.SUSP PO (19:02)
[2021-06-23] MEDS: traZODone HCL 50 MG TABLET PO ×2 (20:00→21:02)
[2021-06-23] MEDS: QUEtiapine Fumarate 200 MG TABLET PO (20:00)
[2021-06-23] MEDS: Phenazopyridine HCL 100 MG TABLET PO (20:04)
[2021-06-24] MEDS: hydrOXYzine HCL 50 MG TABLET PO ×4 (00:31→20:59)
[2021-06-24] MEDS: QUEtiapine Fumarate 50 MG TABLET PO ×4 (00:31→21:01)
[2021-06-24] MEDS: Phenazopyridine HCL 100 MG TABLET PO ×2 (03:56→19:06)
[2021-06-24] MEDS: Milk of Magnesia 30 ML ORAL.SUSP PO (03:57)
[2021-06-24 06:00] VITALS: BP 127/81; PULSE 102; TEMP 36.3
[2021-06-24 08:31] VITALS: BP 127/81
[2021-06-24] MEDS: Baclofen 10 MG TABLET PO ×2 (08:31→20:13)
[2021-06-24] MEDS: Omeprazole 40 MG CAPSULE.DR PO (08:31)
[2021-06-24] MEDS: amLODIPine Besylate 5 MG TABLET PO (08:31)
[2021-06-24] MEDS: Gabapentin 400 MG CAPSULE 800 MG PO ×3 (08:31→20:12)
[2021-06-24] MEDS: Divalproex Sodium 500 MG TABLET.DR PO ×2 (08:32→20:12)
[2021-06-24 09:49] VITALS: BP 127/81; PULSE 102; TEMP 36.3
[2021-06-24] MEDS: Nicotine Polacrilex 2 MG GUM BUCCAL ×3 (11:01→20:12)
--- NOTE | 2021-06-24 13:24 | P.CONHOSP_ITS ---
History of Present Illness Data of Consult Service Date: 06/24/21 Primary Care Provider: Unknown Physician HPI 46/F with history of MS, seizure, depression, history substance abuse but says she has been clear for many years. She is admitted to Psych for depression with sucidial thought, although at this time she is saying she feel depressied but no longer sucidal. She was in wheel chair and when ask why she is in the wheel chair she says her leg has been giving out on and she also said that she has been in and out of wheel chair for 8 years. She says that her MS doctor just and she's looking for another at [facility] where she's moving to in the coming weeks. She says she's having back pain and that she has been prescrib ed oxycodone by someone. I checked [facility] and see that she was prescribed 12 tabs of Oxycodone by a Doctor in [place] on June 03 of this year. Review of Systems Review of Systems: Gen: no fever Resp: no sob, no cough CV: no chest, no GUERRERO, no leg edema GI: No n/v, no abd pain Neuro: No confusion Yes all other systems are reviewed and are negative [facility] Medical History Alcohol abuse Asthma section wound complication Cocaine abuse Diabetes Fall GERD (gastroesophageal reflux disease) History of seizure Hypertension MDD (major depressive disorder), recurrent episode, severe Multiple sclerosis Multiple sclerosis Multiple sclerosis exacerbation Surgical History History of left ankle joint replacement History of thoracic surgery Social History Household Members: Significant Other Housing: Other Housing Other:: hotel Do you presently have visiting nurse or other home services: No Alcohol intake: former Patient Tobacco Use Status: Current everyday Tobacco user Tobacco use type: Cigarette Cigarette Packs Per Day: 1.5 Cigarettes Per Day: 10 Years Smoked: 18 Smoked in Last 30 Days: Yes e-Cigarette/Vaping Use: Never Used Patient Interested in Nicotine Replacement: Yes Patient Given Instructions on How to Stop Smoking: Yes Date Education Initiated: 06/22/21 Second Hand Smoke Exposure: Yes Use of substances other than those prescribed or required for medical reasons: No Substance Use Type: Crack/Cocaine Currently Displaying Signs/Symptoms of Drug Intoxication Withdrawal: No Any prior treatment program specific to substance use: Yes Have you been hit, kicked, punched, or otherwise hurt by someone within the past year? If so, by whom?: No Do you feel safe in your current relationship?: Yes Is there a partner from a previous relationship who is making you feel unsafe now?: No Are you made to feel afraid or neglected: No [facility] [facility] Practices: Pentac[employer] Advance Directives: Yes Advance Directives on File: Yes Advance Directives Date on File: 08/25/20 Do you have thoughts of harming others: None Do you have a plan to hurt others: No Plan Recently lost weight without trying: No How much weight loss: Not applicable Eating poorly because of decreased appetite: No Nutrition screen score: 0 Nutrition Risks: No Nutritional Risk Patient : No : No Poor oral hygiene: Yes service: No Current occupational status: unemployed Sexual orientation: Straight/Heterosexual Meds Allergies Allergy/AdvReac Type Severity Reaction Status Date / Time Iodinated Contrast Media Allergy Severe ANAPHYLAXIS Verified 06/13/21 20:16 [CONTRAST, IV] ibuprofen [From Motrin] Allergy Intermediate SWELLING Verified 06/13/21 20:16 morphine [MORPHINE] Allergy Intermediate RASH Verified 06/13/21 20:16 acetaminophen [From TYLENOL] Allergy Mild HIVES Verified 06/13/21 20:16 bee pollen [Bee Stings] Allergy Mild UNKNOWN Verified 06/13/21 20:16 coconut Allergy Mild HIVES/SWELL Verified 06/13/21 20:16 ING latex [Latex] Allergy Mild HIVES Verified 06/13/21 20:16 NSAIDS (Non-Steroidal Allergy Mild HIVES Verified 06/13/21 20:16 Anti-Inflamma [NSAIDS (NON-STEROIDAL ANTI-INFLAMMA] aspirin [ASA] Allergy Unknown HIVES Verified 06/13/21 20:16 tramadol [TRAMADOL] Allergy Unknown UNKNOWN Verified 06/13/21 20:16 turkey Allergy Unknown UNKNOWN Verified 06/13/21 20:16 lidocaine Allergy Rash Verified 06/13/21 20:16 From Vicodin Allergy Mild RASH Uncoded 06/13/21 20:16 Active Medications: Current Medications Generic Name Dose Route Start Last Admin Trade Name Freq PRN Reason Stop Dose Admin Al Hydroxide/Mg Hydroxide 30 ml 06/22/21 13:56 Magnesium Hydrox/Alum Hydrox 30 Ml Oral.Susp PO Q6H PRN Heartburn/Nausea Albuterol Sulfate 2 puff 06/21/21 21:38 Albuterol Sulfate 90 Mcg 8 Gm Inhaler INHALE Q4H PRN Shortness Of Breath Amlodipine Besylate 5 mg 06/22/21 09:00 06/24/21 08:31 Amlodipine Besylate 5 Mg Tablet PO 5 mg DAILY [facility] Administration Protocol Baclofen 10 mg 06/21/21 21:45 06/24/21 08:31 Baclofen 10 Mg Tablet PO 10 mg BID [facility] Administration Cefuroxime Axetil 500 mg 06/21/21 21:45 06/24/21 08:32 Cefuroxime Axetil 500 Mg Tablet PO 500 mg BID [facility] Administration Divalproex Sodium 500 mg 06/21/21 21:45 06/24/21 08:32 Divalproex Sodium 500 Mg Tablet. PO 500 mg BID [facility] Administration Gabapentin 800 mg 06/21/21 21:45 06/24/21 08:31 Gabapentin 400 Mg Capsule PO 800 mg TID [facility] Administration Hydroxyzine HCl 50 mg 06/22/21 13:56 06/24/21 08:31 Hydroxyzine Hcl 50 Mg Tablet PO 50 mg Q6H PRN Administration Anxiety Magnesium Hydroxide 30 ml 06/22/21 13:56 06/24/21 03:57 Milk Of Magnesia 30 Ml Oral.Susp PO 30 ml DAILY PRN Administration Constipation Nicotine Polacrilex 2 mg 06/22/21 16:45 06/24/21 11:01 Nicotine Polacrilex 2 Mg Gum BUCCAL 2 mg Q2H PRN Administration Nicotine Cravings Omeprazole 40 mg 06/22/21 09:00 06/24/21 08:31 Omeprazole 40 Mg Capsule. PO 40 mg DAILY [facility] Administration Phenazopyridine HCl 100 mg 06/21/21 21:38 06/24/21 03:56 Phenazopyridine Hcl 100 Mg Tablet PO 100 mg TID PRN Administration pain Quetiapine Fumarate 50 mg 06/21/21 21:38 06/24/21 09:01 Quetiapine Fumarate 50 Mg Tablet PO 50 mg Q6H PRN Administration Anxiety Quetiapine Fumarate 200 mg 06/21/21 21:45 06/23/21 20:00 Quetiapine Fumarate 200 Mg Tablet PO 200 mg BEDTIME [facility] Administration Trazodone HCl 50 mg 06/22/21 13:56 06/23/21 21:02 Trazodone Hcl 50 Mg Tablet PO 50 mg BEDTIME PRN Administration Insomnia Home Medications Medication Instructions Recorded Confirmed Last Taken Type amlodipine 5 mg tablet 1 tab PO DAILY 06/21/21 06/21/21 Unknown History baclofen 5 mg tablet 2 tab PO BID 06/21/21 06/21/21 Unknown History divalproex 250 mg tablet,delayed 500 mg PO BID 06/21/21 06/21/21 Unknown History release gabapentin 800 mg tablet 1 tab PO TID 06/21/21 06/21/21 Unknown History omeprazole 40 mg capsule,delayed 1 cap PO DAILY 06/21/21 06/21/21 Unknown History release quetiapine 200 mg tablet 1 tab PO BEDTIME 06/21/21 06/21/21 Unknown History quetiapine 50 mg tablet 50 mg PO Q6H PRN 06/21/21 06/21/21 Unknown History Physical Exam Vital Signs and Narrative: Vital Signs: Last Vital Signs Temp 97.3 F 06/24/21 09:49 Pulse 102 H 06/24/21 09:49 Resp 20 06/23/21 18:00 BP 127/81 06/24/21 09:49 Pulse Ox 99 06/23/21 18:00 Body Mass Index 29.8 Constitutional Awake and Alert, No apparent distress HEENT-anicteric Neck Supple, No lymphadenopathy Cardiovascular RRR, No M/R/G, S1 S2, No S3 S4, No pedal edema Respiratory Lungs clear, No respiratory distress Gastrointestinal Non tender, Non-distended Skin No rash Neurological Alert & oriented x3, she moves all extremities equally, there is no focal deficit, CN2 to 12 is intact Psychological Appropriate affect Results Labs CBC and Chem 7: 06/21/21 19:19 06/21/21 19:19 Assessment and Plan (1) Depression: Status: Acute (2) Post traumatic stress disorder (PTSD): Status: Acute (3) Multiple sclerosis: Status: Acute 46/F with history of Depression, PTS, MS, chronic pain issues presently admitted to Psych for depression, SI and complaining of pain. h/o MS--I don't think exacerbation but if concern of exacerbation will consult Neuro Chronic pain, she is not chronic opioid as she was suggesting, would avoid opioids at this time HTN-continue Amlodipine Depression, PTS, SI--management by Psych. Will follow as needed
--- NOTE | 2021-06-24 15:21 | HO.PSYCHPN ---
Subjective Subjective Date of Service: 06/25/21 Reason For Visit: SI Subjective Notes: Conditional Voluntary Interim History: Pt has been more visible in the unit. she continues to report chronic pain is intolerable and asks for oxycodone, which pt was explained will not be prescribed while in the unit (ongoing substance use and question if clinically appropriate to treat chronic pain- last admission and this one pt advised to follow up with pain clinic, which she did not. Note that most rx for oxycodne from emergency departments and recent stay at [facility] in [place] but not by regular providers). She reports AH. She does denied suicidal ideation. She states she wants to stay on unit unit next payche. Review of Systems Review of Systems Gen: no fever Resp: no sob, no cough CV: no chest, no GUERRERO, no leg edema GI: No n/v, no abd pain Neuro: No confusion Yes all other systems are reviewed and are negative Constitutional: Reports as per HPI and Reports no additional constitutional complaints Eyes: Reports as per HPI and Reports no additional eye complaints Reports system reviewed and no additional complaints, except as documented, Reports as per HPI and Reports dizziness Cardiovascular: Reports as per HPI, Reports no additional cardiovascular complaints and Denies dyspnea Respiratory: Reports as per HPI, Reports no additional respiratory complaints and Denies dyspnea Gastrointestinal: Reports as per HPI, Reports no additional gastrointestinal complaints, Reports constipation, Reports GI cramping, Denies dyspepsia, Denies heartburn and Denies nausea Musculoskeletal: Reports no additional musculoskeletal complaints, Reports as per HPI, Reports arthralgias (Bilateral knee pain. Bilateral leg pain. ) and Reports radiating pain into limb Reports system reviewed and no additional complaints, except as documented, Reports as per HPI and Reports dizziness Psychiatric: Reports no additional psychiatric complaints, Reports as per HPI, Reports depression and Reports suicidal ideation Mental Status Exam Mental Status Exam Narrative: Appearance: MO, casually groomed, fair hygiene in NAD Behavior:superficially cooperative, irritable at times psychomotor: no agitation or retardation noted Speech:clear, normal rate/rhythm, spontaneous Thought process:linear Thought content: no signs of psychosis, future oriented Mood: depressed Affect: brighter than reported mood SI:denies HI:none VH/AH:AH Delusions:none Insight/judgment:poor x 2. Memory/cog: alert, oriented x 3. grossly intact to conversational testing. Diagnostics Vital Signs (24Hr): Vital Signs - 24 hr 06/24/21 18:00 06/25/21 09:00 Temperature 98.4 F Pulse Rate 100 91 Respiratory Rate 16 Blood Pressure 140/90 H 117/56 L Pulse Oximetry 100 Body Mass Index 29.8 Labs Results: 06/21/21 19:19 06/21/21 19:19 Imaging Radiology Impressions: ITS Impressions Knee X-Ray 06/21/21 18:02 Impression: Chronic appearing degenerative and postoperative changes as described. I do not appreciate any acute bony abnormality. Knee X-Ray 06/21/21 18:02 Impression: Chronic appearing degenerative and postoperative changes as described. I do not appreciate any acute bony abnormality. Tibia/Fibula X-Ray 06/21/21 18:02 Impression: Chronic appearing degenerative and postoperative changes as described. I do not appreciate any acute bony abnormality. Tibia/Fibula X-Ray 06/21/21 18:02 Impression: Chronic appearing degenerative and postoperative changes as described. I do not appreciate any acute bony abnormality. Medications Medications Current Medications Al Hydroxide/Mg Hydroxide (Magnesium Hydrox/Alum Hydrox 30 Ml Oral.Susp) 30 ml PO Q6H PRN PRN Reason: Heartburn/Nausea Albuterol Sulfate (Albuterol Sulfate 90 Mcg 8 Gm Inhaler) 2 puff INHALE Q4H PRN PRN Reason: Shortness Of Breath Last Admin: 06/24/21 21:44 Dose: 2 puff Documented by: Amlodipine Besylate (Amlodipine Besylate 5 Mg Tablet) 5 mg PO DAILY [facility]; Protocol Last Admin: 06/25/21 09:00 Dose: 5 mg Documented by: Baclofen (Baclofen 10 Mg Tablet) 10 mg PO BID [facility] Last Admin: 06/25/21 09:00 Dose: 10 mg Documented by: Cefuroxime Axetil (Cefuroxime Axetil 500 Mg Tablet) 500 mg PO BID [facility] Last Admin: 06/25/21 09:00 Dose: 500 mg Documented by: Divalproex Sodium (Divalproex Sodium 500 Mg Tablet.Dr) 500 mg PO BID [facility] Last Admin: 06/25/21 08:59 Dose: 500 mg Documented by: Gabapentin (Gabapentin 400 Mg Capsule) 800 mg PO TID [facility] Last Admin: 06/25/21 14:56 Dose: 800 mg Documented by: Hydroxyzine HCl (Hydroxyzine Hcl 50 Mg Tablet) 50 mg PO Q4H PRN PRN Reason: Anxiety Last Admin: 06/25/21 14:56 Dose: 50 mg Documented by: Magnesium Hydroxide (Milk Of Magnesia 30 Ml Oral.Susp) 30 ml PO DAILY PRN PRN Reason: Constipation Last Admin: 06/24/21 03:57 Dose: 30 ml Documented by: Nicotine Polacrilex (Nicotine Polacrilex 2 Mg Gum) 2 mg BUCCAL Q2H PRN PRN Reason: Nicotine Cravings Last Admin: 06/25/21 09:21 Dose: 2 mg Documented by: Omeprazole (Omeprazole 40 Mg Capsule.Dr) 40 mg PO DAILY [facility] Last Admin: 06/25/21 09:00 Dose: 40 mg Documented by: Phenazopyridine HCl (Phenazopyridine Hcl 100 Mg Tablet) 100 mg PO TID PRN PRN Reason: pain Last Admin: 06/24/21 19:06 Dose: 100 mg Documented by: Quetiapine Fumarate (Quetiapine Fumarate 200 Mg Tablet) 200 mg PO BEDTIME [facility] Last Admin: 06/24/21 20:12 Dose: 200 mg Documented by: Quetiapine Fumarate (Quetiapine Fumarate 25 Mg Tablet) 75 mg PO Q4H PRN PRN Reason: Anxiety Last Admin: 06/25/21 14:56 Dose: 75 mg Documented by: Trazodone HCl (Trazodone Hcl 100 Mg Tablet) 300 mg PO BEDTIME [facility] Allergies Allergies Allergy/AdvReac Type Severity Reaction Status Date / Time Iodinated Contrast Media Allergy Severe ANAPHYLAXIS Verified 06/13/21 20:16 [CONTRAST, IV] ibuprofen [From Motrin] Allergy Intermediate SWELLING Verified 06/13/21 20:16 morphine [MORPHINE] Allergy Intermediate RASH Verified 06/13/21 20:16 acetaminophen [From TYLENOL] Allergy Mild HIVES Verified 06/13/21 20:16 bee pollen [Bee Stings] Allergy Mild UNKNOWN Verified 06/13/21 20:16 coconut Allergy Mild HIVES/SWELL Verified 06/13/21 20:16 ING latex [Latex] Allergy Mild HIVES Verified 06/13/21 20:16 NSAIDS (Non-Steroidal Allergy Mild HIVES Verified 06/13/21 20:16 Anti-Inflamma [NSAIDS (NON-STEROIDAL ANTI-INFLAMMA] aspirin [ASA] Allergy Unknown HIVES Verified 06/13/21 20:16 tramadol [TRAMADOL] Allergy Unknown UNKNOWN Verified 06/13/21 20:16 turkey Allergy Unknown UNKNOWN Verified 06/13/21 20:16 lidocaine Allergy Rash Verified 06/13/21 20:16 From Vicodin Allergy Mild RASH Uncoded 06/13/21 20:16 Assessment & Plan Assessment & Plan (1) MDD (major depressive disorder), recurrent episode, severe: Status: Acute Code(s): F33.2 - Major depressive disorder, recurrent severe without psychotic features (2) Cocaine abuse: Status: Acute Code(s): F14.10 - Cocaine abuse, uncomplicated (3) Personality disorder in adult: Status: Acute Code(s): F60.9 - Personality disorder, unspecified Assessment and Plan: Ms. Dumont is a 46 year-old woman with hx of mood disorder, cocaine use, PD, self presented to [facility] ED reporting increased depression in context of cocaine use and lack of stable housing. Pt does admit that she is here in part due to lack of housing and hoping to stay until she gets next check. She reports depressed mood, affect brighter than reported mood. We discusssed risks, bebefits and alternative treatment options, continue seroquel, no control substances will be prescribed. PLAN 1. Admit to M3 2. Continue current medications- NO control substances including benzodiazepine nor opioid medications. 3. OBtain collateral information 4. Aftercare planning Greater than 50% of the session was spent on counseling and/or coordination of care Reason for contiued inpatient stay Substantial Risk for: harm to self
[2021-06-24] MEDS: Albuterol Sulfate 90 MCG 8 GM INHALER 2 PUFF INHALE ×2 (16:17→21:44)
[2021-06-24 18:00] VITALS: BP 140/90; PULSE 100; RESP 16; TEMP 36.9; O2SAT 100
[2021-06-24] MEDS: QUEtiapine Fumarate 200 MG TABLET PO (20:12)
[2021-06-24] MEDS: traZODone HCL 50 MG TABLET PO ×2 (22:04→23:57)
[2021-06-25] MEDS: Gabapentin 400 MG CAPSULE 800 MG PO ×3 (08:59→20:08)
[2021-06-25] MEDS: Divalproex Sodium 500 MG TABLET.DR PO ×2 (08:59→20:08)
[2021-06-25 09:00] VITALS: BP 117/56; PULSE 91
[2021-06-25] MEDS: Omeprazole 40 MG CAPSULE.DR PO (09:00)
[2021-06-25] MEDS: Baclofen 10 MG TABLET PO ×2 (09:00→20:08)
[2021-06-25] MEDS: amLODIPine Besylate 5 MG TABLET PO (09:00)
[2021-06-25] MEDS: Nicotine Polacrilex 2 MG GUM BUCCAL ×2 (09:21→19:48)
[2021-06-25] MEDS: QUEtiapine Fumarate 50 MG TABLET PO (11:12)
[2021-06-25] MEDS: hydrOXYzine HCL 50 MG TABLET PO ×2 (11:12→14:56)
[2021-06-25] MEDS: QUEtiapine Fumarate 25 MG TABLET 75 MG PO (14:56)
--- NOTE | 2021-06-25 15:22 | HO.PSYCHPN ---
Subjective Subjective Date of Service: 06/25/21 Reason For Visit: SI Subjective Notes: Conditional Voluntary Interim History: Pt reports she did not sleep last night- pt does take higher dose of trazodone, which she agreed to increase. Pt reports feeling anxious, initially asking for ativan, which was explained to pt will not be prescribed given risk of abuse/misuse. Pt has used combination of vistaril and seroquel in past with good effect, which she agrees to increase. She denies SI/HI. SHe states she plans to move to [facility] but also asks clinician to make applications to [facility]. Pt has been visible in the unit. Review of Systems Review of Systems Gen: no fever Resp: no sob, no cough CV: no chest, no GUERRERO, no leg edema GI: No n/v, no abd pain Neuro: No confusion Yes all other systems are reviewed and are negative Constitutional: Reports as per HPI and Reports no additional constitutional complaints Eyes: Reports as per HPI and Reports no additional eye complaints Reports system reviewed and no additional complaints, except as documented, Reports as per HPI and Reports dizziness Cardiovascular: Reports as per HPI, Reports no additional cardiovascular complaints and Denies dyspnea Respiratory: Reports as per HPI, Reports no additional respiratory complaints and Denies dyspnea Gastrointestinal: Reports as per HPI, Reports no additional gastrointestinal complaints, Reports constipation, Reports GI cramping, Denies dyspepsia, Denies heartburn and Denies nausea Musculoskeletal: Reports no additional musculoskeletal complaints, Reports as per HPI, Reports arthralgias (Bilateral knee pain. Bilateral leg pain. ) and Reports radiating pain into limb Reports system reviewed and no additional complaints, except as documented, Reports as per HPI and Reports dizziness Psychiatric: Reports no additional psychiatric complaints, Reports as per HPI, Reports depression and Reports suicidal ideation Mental Status Exam Mental Status Exam Narrative: Appearance: MO, casually groomed, fair hygiene in NAD Behavior:superficially cooperative, irritable at times psychomotor: no agitation or retardation noted Speech:clear, normal rate/rhythm, spontaneous Thought process:linear Thought content: no signs of psychosis, future oriented Mood: depressed Affect: brighter than reported mood SI:denies HI:none VH/AH:AH Delusions:none Insight/judgment:poor x 2. Memory/cog: alert, oriented x 3. grossly intact to conversational testing. Diagnostics Vital Signs (24Hr): Vital Signs - 24 hr 06/24/21 18:00 06/25/21 09:00 Temperature 98.4 F Pulse Rate 100 91 Respiratory Rate 16 Blood Pressure 140/90 H 117/56 L Pulse Oximetry 100 Body Mass Index 29.8 Labs Results: 06/21/21 19:19 06/21/21 19:19 Imaging Radiology Impressions: ITS Impressions Knee X-Ray 06/21/21 18:02 Impression: Chronic appearing degenerative and postoperative changes as described. I do not appreciate any acute bony abnormality. Knee X-Ray 06/21/21 18:02 Impression: Chronic appearing degenerative and postoperative changes as described. I do not appreciate any acute bony abnormality. Tibia/Fibula X-Ray 06/21/21 18:02 Impression: Chronic appearing degenerative and postoperative changes as described. I do not appreciate any acute bony abnormality. Tibia/Fibula X-Ray 06/21/21 18:02 Impression: Chronic appearing degenerative and postoperative changes as described. I do not appreciate any acute bony abnormality. Medications Medications Current Medications Al Hydroxide/Mg Hydroxide (Magnesium Hydrox/Alum Hydrox 30 Ml Oral.Susp) 30 ml PO Q6H PRN PRN Reason: Heartburn/Nausea Albuterol Sulfate (Albuterol Sulfate 90 Mcg 8 Gm Inhaler) 2 puff INHALE Q4H PRN PRN Reason: Shortness Of Breath Last Admin: 06/24/21 21:44 Dose: 2 puff Documented by: Amlodipine Besylate (Amlodipine Besylate 5 Mg Tablet) 5 mg PO DAILY [facility]; Protocol Last Admin: 06/25/21 09:00 Dose: 5 mg Documented by: Baclofen (Baclofen 10 Mg Tablet) 10 mg PO BID [facility] Last Admin: 06/25/21 09:00 Dose: 10 mg Documented by: Cefuroxime Axetil (Cefuroxime Axetil 500 Mg Tablet) 500 mg PO BID [facility] Last Admin: 06/25/21 09:00 Dose: 500 mg Documented by: Divalproex Sodium (Divalproex Sodium 500 Mg Tablet.) 500 mg PO BID [facility] Last Admin: 06/25/21 08:59 Dose: 500 mg Documented by: Gabapentin (Gabapentin 400 Mg Capsule) 800 mg PO TID [facility] Last Admin: 06/25/21 14:56 Dose: 800 mg Documented by: Hydroxyzine HCl (Hydroxyzine Hcl 50 Mg Tablet) 50 mg PO Q4H PRN PRN Reason: Anxiety Last Admin: 06/25/21 14:56 Dose: 50 mg Documented by: Magnesium Hydroxide (Milk Of Magnesia 30 Ml Oral.Susp) 30 ml PO DAILY PRN PRN Reason: Constipation Last Admin: 06/24/21 03:57 Dose: 30 ml Documented by: Nicotine Polacrilex (Nicotine Polacrilex 2 Mg Gum) 2 mg BUCCAL Q2H PRN PRN Reason: Nicotine Cravings Last Admin: 06/25/21 09:21 Dose: 2 mg Documented by: Omeprazole (Omeprazole 40 Mg Capsule.Dr) 40 mg PO DAILY [facility] Last Admin: 06/25/21 09:00 Dose: 40 mg Documented by: Phenazopyridine HCl (Phenazopyridine Hcl 100 Mg Tablet) 100 mg PO TID PRN PRN Reason: pain Last Admin: 06/24/21 19:06 Dose: 100 mg Documented by: Quetiapine Fumarate (Quetiapine Fumarate 200 Mg Tablet) 200 mg PO BEDTIME [facility] Last Admin: 06/24/21 20:12 Dose: 200 mg Documented by: Quetiapine Fumarate (Quetiapine Fumarate 25 Mg Tablet) 75 mg PO Q4H PRN PRN Reason: Anxiety Last Admin: 06/25/21 14:56 Dose: 75 mg Documented by: Trazodone HCl (Trazodone Hcl 100 Mg Tablet) 300 mg PO BEDTIME [facility] Allergies Allergies Allergy/AdvReac Type Severity Reaction Status Date / Time Iodinated Contrast Media Allergy Severe ANAPHYLAXIS Verified 06/13/21 20:16 [CONTRAST, IV] ibuprofen [From Motrin] Allergy Intermediate SWELLING Verified 06/13/21 20:16 morphine [MORPHINE] Allergy Intermediate RASH Verified 06/13/21 20:16 acetaminophen [From TYLENOL] Allergy Mild HIVES Verified 06/13/21 20:16 bee pollen [Bee Stings] Allergy Mild UNKNOWN Verified 06/13/21 20:16 coconut Allergy Mild HIVES/SWELL Verified 06/13/21 20:16 ING latex [Latex] Allergy Mild HIVES Verified 06/13/21 20:16 NSAIDS (Non-Steroidal Allergy Mild HIVES Verified 06/13/21 20:16 Anti-Inflamma [NSAIDS (NON-STEROIDAL ANTI-INFLAMMA] aspirin [ASA] Allergy Unknown HIVES Verified 06/13/21 20:16 tramadol [TRAMADOL] Allergy Unknown UNKNOWN Verified 06/13/21 20:16 turkey Allergy Unknown UNKNOWN Verified 06/13/21 20:16 lidocaine Allergy Rash Verified 06/13/21 20:16 From Vicodin Allergy Mild RASH Uncoded 06/13/21 20:16 Assessment & Plan Assessment & Plan (1) MDD (major depressive disorder), recurrent episode, severe: Status: Acute Code(s): F33.2 - Major depressive disorder, recurrent severe without psychotic features (2) Cocaine abuse: Status: Acute Code(s): F14.10 - Cocaine abuse, uncomplicated (3) Personality disorder in adult: Status: Acute Code(s): F60.9 - Personality disorder, unspecified Assessment and Plan: Ms. Dumont is a 46 year-old woman with hx of mood disorder, cocaine use, PD, self presented to [facility] ED reporting increased depression in context of cocaine use and lack of stable housing. Pt does admit that she is here in part due to lack of housing and hoping to stay until she gets next check. She reports depressed mood, affect brighter than reported mood. We discusssed risks, bebefits and alternative treatment options, continue seroquel, no control substances will be prescribed. PLAN 1. Admit to M3 2. Continue current medications- NO control substances including benzodiazepine nor opioid medications. 3. OBtain collateral information 4. Aftercare planning Greater than 50% of the session was spent on counseling and/or coordination of care Reason for contiued inpatient stay Substantial Risk for: harm to self
[2021-06-25 18:00] VITALS: BP 136/83; PULSE 107; RESP 18; TEMP 36.8; O2SAT 96
[2021-06-25] MEDS: QUEtiapine Fumarate 200 MG TABLET PO (20:08)
[2021-06-25] MEDS: traZODone HCL 100 MG TABLET 300 MG PO (20:08)
[2021-06-26] MEDS: Albuterol Sulfate 90 MCG 8 GM INHALER 2 PUFF INHALE ×2 (04:59→20:21)
[2021-06-26] MEDS: Nicotine Polacrilex 2 MG GUM BUCCAL ×5 (04:59→19:54)
[2021-06-26 08:00] VITALS: BP 114/57; PULSE 80; RESP 16; TEMP 36.6; O2SAT 100
--- NOTE | 2021-06-26 08:17 | HO.PSYCHPN ---
Subjective Subjective Date of Service: 06/27/21 Reason For Visit: SI Interim History: 06/25:Pt reports she did not sleep last night- pt does take higher dose of trazodone, which she agreed to increase. Pt reports feeling anxious, initially asking for ativan, which was explained to pt will not be prescribed given risk of abuse/misuse. Pt has used combination of vistaril and seroquel in past with good effect, which she agrees to increase. She denies SI/HI. SHe states she plans to move to [facility] but also asks clinician to make applications to [facility]. Pt has been visible in the unit. 06/26: Mostly in bed. No objective signs of depression/suicidality. Med and somatic focus. Demanded oxycodone. declined. Later observed to be comforatble. Medication Compliance: Yes Side effects from medications: No Attending Groups: Yes Review of Systems Acute medical concerns: No Review of Systems Review of Systems Gen: no fever Resp: no sob, no cough CV: no chest, no GUERRREO, no leg edema GI: No n/v, no abd pain Neuro: No confusion Yes all other systems are reviewed and are negative Constitutional: Reports as per HPI and Reports no additional constitutional complaints Eyes: Reports as per HPI and Reports no additional eye complaints Reports system reviewed and no additional complaints, except as documented, Reports as per HPI and Reports dizziness Cardiovascular: Reports as per HPI, Reports no additional cardiovascular complaints and Denies dyspnea Respiratory: Reports as per HPI, Reports no additional respiratory complaints and Denies dyspnea Gastrointestinal: Reports as per HPI, Reports no additional gastrointestinal complaints, Reports constipation, Reports GI cramping, Denies dyspepsia, Denies heartburn and Denies nausea Musculoskeletal: Reports no additional musculoskeletal complaints, Reports as per HPI, Reports arthralgias (Bilateral knee pain. Bilateral leg pain. ) and Reports radiating pain into limb Reports system reviewed and no additional complaints, except as documented, Reports as per HPI and Reports dizziness Psychiatric: Reports no additional psychiatric complaints, Reports as per HPI, Reports depression and Reports suicidal ideation Mental Status Exam Mental Status Exam Narrative: Appearance: MO, casually groomed, fair hygiene in NAD Behavior:superficially cooperative, irritable at times psychomotor: no agitation or retardation noted Speech:clear, normal rate/rhythm, spontaneous Thought process:linear Thought content: no signs of psychosis, future oriented Mood: depressed Affect: brighter than reported mood SI:denies HI:none VH/AH:AH Delusions:none Insight/judgment:poor x 2. Memory/cog: alert, oriented x 3. grossly intact to conversational testing. Diagnostics Vital Signs (24Hr): Vital Signs - 24 hr 06/25/21 09:00 06/25/21 18:00 Temperature 98.2 F Pulse Rate 91 107 H Respiratory Rate 18 Blood Pressure 117/56 L 136/83 Pulse Oximetry 96 Body Mass Index 29.8 Labs Results: 06/21/21 19:19 06/21/21 19:19 Imaging Radiology Impressions: ITS Impressions Knee X-Ray 06/21/21 18:02 Impression: Chronic appearing degenerative and postoperative changes as described. I do not appreciate any acute bony abnormality. Knee X-Ray 06/21/21 18:02 Impression: Chronic appearing degenerative and postoperative changes as described. I do not appreciate any acute bony abnormality. Tibia/Fibula X-Ray 06/21/21 18:02 Impression: Chronic appearing degenerative and postoperative changes as described. I do not appreciate any acute bony abnormality. Tibia/Fibula X-Ray 06/21/21 18:02 Impression: Chronic appearing degenerative and postoperative changes as described. I do not appreciate any acute bony abnormality. Medications Medications Current Medications Al Hydroxide/Mg Hydroxide (Magnesium Hydrox/Alum Hydrox 30 Ml Oral.Susp) 30 ml PO Q6H PRN PRN Reason: Heartburn/Nausea Albuterol Sulfate (Albuterol Sulfate 90 Mcg 8 Gm Inhaler) 2 puff INHALE Q4H PRN PRN Reason: Shortness Of Breath Last Admin: 06/26/21 04:59 Dose: 2 puff Documented by: Amlodipine Besylate (Amlodipine Besylate 5 Mg Tablet) 5 mg PO DAILY [facility]; Protocol Last Admin: 06/25/21 09:00 Dose: 5 mg Documented by: Baclofen (Baclofen 10 Mg Tablet) 10 mg PO BID [facility] Last Admin: 06/25/21 20:08 Dose: 10 mg Documented by: Cefuroxime Axetil (Cefuroxime Axetil 500 Mg Tablet) 500 mg PO BID [facility] Last Admin: 06/25/21 20:08 Dose: 500 mg Documented by: Divalproex Sodium (Divalproex Sodium 500 Mg Tablet.) 500 mg PO BID [facility] Last Admin: 06/25/21 20:08 Dose: 500 mg Documented by: Gabapentin (Gabapentin 400 Mg Capsule) 800 mg PO TID [facility] Last Admin: 06/25/21 20:08 Dose: 800 mg Documented by: Hydroxyzine HCl (Hydroxyzine Hcl 50 Mg Tablet) 50 mg PO Q4H PRN PRN Reason: Anxiety Last Admin: 06/25/21 14:56 Dose: 50 mg Documented by: Magnesium Hydroxide (Milk Of Magnesia 30 Ml Oral.Susp) 30 ml PO DAILY PRN PRN Reason: Constipation Last Admin: 06/24/21 03:57 Dose: 30 ml Documented by: Nicotine Polacrilex (Nicotine Polacrilex 2 Mg Gum) 2 mg BUCCAL Q2H PRN PRN Reason: Nicotine Cravings Last Admin: 06/26/21 04:59 Dose: 2 mg Documented by: Omeprazole (Omeprazole 40 Mg Capsule.Dr) 40 mg PO DAILY [facility] Last Admin: 06/25/21 09:00 Dose: 40 mg Documented by: Phenazopyridine HCl (Phenazopyridine Hcl 100 Mg Tablet) 100 mg PO TID PRN PRN Reason: pain Last Admin: 06/24/21 19:06 Dose: 100 mg Documented by: Quetiapine Fumarate (Quetiapine Fumarate 200 Mg Tablet) 200 mg PO BEDTIME [facility] Last Admin: 06/25/21 20:08 Dose: 200 mg Documented by: Quetiapine Fumarate (Quetiapine Fumarate 25 Mg Tablet) 75 mg PO Q4H PRN PRN Reason: Anxiety Last Admin: 06/25/21 14:56 Dose: 75 mg Documented by: Trazodone HCl (Trazodone Hcl 100 Mg Tablet) 300 mg PO BEDTIME [facility] Last Admin: 06/25/21 20:08 Dose: 300 mg Documented by: Allergies Allergies Allergy/AdvReac Type Severity Reaction Status Date / Time Iodinated Contrast Media Allergy Severe ANAPHYLAXIS Verified 06/13/21 20:16 [CONTRAST, IV] ibuprofen [From Motrin] Allergy Intermediate SWELLING Verified 06/13/21 20:16 morphine [MORPHINE] Allergy Intermediate RASH Verified 06/13/21 20:16 acetaminophen [From TYLENOL] Allergy Mild HIVES Verified 06/13/21 20:16 bee pollen [Bee Stings] Allergy Mild UNKNOWN Verified 06/13/21 20:16 coconut Allergy Mild HIVES/SWELL Verified 06/13/21 20:16 ING latex [Latex] Allergy Mild HIVES Verified 06/13/21 20:16 NSAIDS (Non-Steroidal Allergy Mild HIVES Verified 06/13/21 20:16 Anti-Inflamma [NSAIDS (NON-STEROIDAL ANTI-INFLAMMA] aspirin [ASA] Allergy Unknown HIVES Verified 06/13/21 20:16 tramadol [TRAMADOL] Allergy Unknown UNKNOWN Verified 06/13/21 20:16 turkey Allergy Unknown UNKNOWN Verified 06/13/21 20:16 lidocaine Allergy Rash Verified 06/13/21 20:16 From Vicodin Allergy Mild RASH Uncoded 06/13/21 20:16 Assessment & Plan Assessment & Plan (1) MDD (major depressive disorder), recurrent episode, severe: Status: Acute Code(s): F33.2 - Major depressive disorder, recurrent severe without psychotic features (2) Cocaine abuse: Status: Acute Code(s): F14.10 - Cocaine abuse, uncomplicated (3) Personality disorder in adult: Status: Acute Code(s): F60.9 - Personality disorder, unspecified Assessment and Plan: Ms. Dumont is a 46 year-old woman with hx of mood disorder, cocaine use, PD, self presented to [facility] reporting increased depression in context of cocaine use and lack of stable housing. Pt does admit that she is here in part due to lack of housing and hoping to stay until she gets next check. She reports depressed mood, affect brighter than reported mood. We discusssed risks, bebefits and alternative treatment options, continue seroquel, no control substances will be prescribed. PLAN 1. Admit to M3 2. Continue current medications- NO control substances including benzodiazepine nor opioid medications. 3. OBtain collateral information 4. Aftercare planning Greater than 50% of the session was spent on counseling and/or coordination of care Reason for contiued inpatient stay Substantial Risk for: inability to function
[2021-06-26] MEDS: Gabapentin 400 MG CAPSULE 800 MG PO ×3 (09:29→20:18)
[2021-06-26] MEDS: Omeprazole 40 MG CAPSULE.DR PO (09:29)
[2021-06-26] MEDS: amLODIPine Besylate 5 MG TABLET PO (09:30)
[2021-06-26] MEDS: Divalproex Sodium 500 MG TABLET.DR PO ×2 (09:32→20:18)
[2021-06-26] MEDS: Baclofen 10 MG TABLET PO ×2 (09:32→20:18)
[2021-06-26] MEDS: QUEtiapine Fumarate 25 MG TABLET 75 MG PO ×2 (12:02→19:56)
[2021-06-26] MEDS: hydrOXYzine HCL 50 MG TABLET PO ×2 (15:42→19:54)
[2021-06-26 18:00] VITALS: BP 133/78; PULSE 101; RESP 18; TEMP 36.8; O2SAT 98
[2021-06-26] MEDS: traZODone HCL 100 MG TABLET 300 MG PO (20:18)
[2021-06-26] MEDS: QUEtiapine Fumarate 200 MG TABLET PO (20:18)
[2021-06-26] MEDS: Melatonin 3 MG TABLET 6 MG PO (22:04)
--- NOTE | 2021-06-27 07:58 | HO.PSYCHPN ---
Subjective Subjective Date of Service: 06/27/21 Reason For Visit: SI Interim History: 06/25:Pt reports she did not sleep last night- pt does take higher dose of trazodone, which she agreed to increase. Pt reports feeling anxious, initially asking for ativan, which was explained to pt will not be prescribed given risk of abuse/misuse. Pt has used combination of vistaril and seroquel in past with good effect, which she agrees to increase. She denies SI/HI. SHe states she plans to move to [facility] but also asks clinician to make applications to [facility]. Pt has been visible in the unit. 06/26: Mostly in bed. No objective signs of depression/suicidality. Med and somatic focus. Demanded oxycodone. declined. Later observed to be comforatble. 06/27: Much the same. Wants podiatry consult. No SI. Looks comfortable Medication Compliance: Yes Side effects from medications: No Attending Groups: Yes Review of Systems Acute medical concerns: No Medical Review of Systems: unchanged Review of Systems Review of Systems Gen: no fever Resp: no sob, no cough CV: no chest, no GUERRERO, no leg edema GI: No n/v, no abd pain Neuro: No confusion Yes all other systems are reviewed and are negative Constitutional: Reports as per HPI and Reports no additional constitutional complaints Eyes: Reports as per HPI and Reports no additional eye complaints Reports system reviewed and no additional complaints, except as documented, Reports as per HPI and Reports dizziness Cardiovascular: Reports as per HPI, Reports no additional cardiovascular complaints and Denies dyspnea Respiratory: Reports as per HPI, Reports no additional respiratory complaints and Denies dyspnea Gastrointestinal: Reports as per HPI, Reports no additional gastrointestinal complaints, Reports constipation, Reports GI cramping, Denies dyspepsia, Denies heartburn and Denies nausea Musculoskeletal: Reports no additional musculoskeletal complaints, Reports as per HPI, Reports arthralgias (Bilateral knee pain. Bilateral leg pain. ) and Reports radiating pain into limb Reports system reviewed and no additional complaints, except as documented, Reports as per HPI and Reports dizziness Psychiatric: Reports no additional psychiatric complaints, Reports as per HPI, Reports depression and Reports suicidal ideation Mental Status Exam Mental Status Exam Narrative: Appearance: MO, casually groomed, fair hygiene in NAD Behavior:superficially cooperative, irritable at times psychomotor: no agitation or retardation noted Speech:clear, normal rate/rhythm, spontaneous Thought process:linear Thought content: no signs of psychosis, future oriented Mood: depressed Affect: brighter than reported mood SI:denies HI:none VH/AH:AH Delusions:none Insight/judgment:poor x 2. Memory/cog: alert, oriented x 3. grossly intact to conversational testing. Diagnostics Vital Signs (24Hr): Vital Signs - 24 hr 06/26/21 08:00 06/26/21 18:00 Temperature 97.9 F 98.3 F Pulse Rate 80 101 H Respiratory Rate 16 18 Blood Pressure 114/57 L 133/78 Pulse Oximetry 100 98 Body Mass Index 29.8 Labs Results: 06/21/21 19:19 06/21/21 19:19 Imaging Radiology Impressions: ITS Impressions Knee X-Ray 06/21/21 18:02 Impression: Chronic appearing degenerative and postoperative changes as described. I do not appreciate any acute bony abnormality. Knee X-Ray 06/21/21 18:02 Impression: Chronic appearing degenerative and postoperative changes as described. I do not appreciate any acute bony abnormality. Tibia/Fibula X-Ray 06/21/21 18:02 Impression: Chronic appearing degenerative and postoperative changes as described. I do not appreciate any acute bony abnormality. Tibia/Fibula X-Ray 06/21/21 18:02 Impression: Chronic appearing degenerative and postoperative changes as described. I do not appreciate any acute bony abnormality. Medications Medications Current Medications Al Hydroxide/Mg Hydroxide (Magnesium Hydrox/Alum Hydrox 30 Ml Oral.Susp) 30 ml PO Q6H PRN PRN Reason: Heartburn/Nausea Albuterol Sulfate (Albuterol Sulfate 90 Mcg 8 Gm Inhaler) 2 puff INHALE Q4H PRN PRN Reason: Shortness Of Breath Last Admin: 06/26/21 20:21 Dose: 2 puff Documented by: Amlodipine Besylate (Amlodipine Besylate 5 Mg Tablet) 5 mg PO DAILY [facility]; Protocol Last Admin: 06/26/21 09:30 Dose: 5 mg Documented by: Baclofen (Baclofen 10 Mg Tablet) 10 mg PO BID [facility] Last Admin: 06/26/21 20:18 Dose: 10 mg Documented by: Cefuroxime Axetil (Cefuroxime Axetil 500 Mg Tablet) 500 mg PO BID [facility] Last Admin: 06/26/21 20:18 Dose: 500 mg Documented by: Divalproex Sodium (Divalproex Sodium 500 Mg Tablet.) 500 mg PO BID [facility] Last Admin: 06/26/21 20:18 Dose: 500 mg Documented by: Gabapentin (Gabapentin 400 Mg Capsule) 800 mg PO TID [facility] Last Admin: 06/26/21 20:18 Dose: 800 mg Documented by: Hydroxyzine HCl (Hydroxyzine Hcl 50 Mg Tablet) 50 mg PO Q4H PRN PRN Reason: Anxiety Last Admin: 06/26/21 19:54 Dose: 50 mg Documented by: Magnesium Hydroxide (Milk Of Magnesia 30 Ml Oral.Susp) 30 ml PO DAILY PRN PRN Reason: Constipation Last Admin: 06/24/21 03:57 Dose: 30 ml Documented by: Melatonin (Melatonin 3 Mg Tablet) 6 mg PO BEDTIME [facility] Last Admin: 06/26/21 22:04 Dose: 6 mg Documented by: Nicotine Polacrilex (Nicotine Polacrilex 2 Mg Gum) 2 mg BUCCAL Q2H PRN PRN Reason: Nicotine Cravings Last Admin: 06/26/21 19:54 Dose: 2 mg Documented by: Omeprazole (Omeprazole 40 Mg Capsule.) 40 mg PO DAILY [facility] Last Admin: 06/26/21 09:29 Dose: 40 mg Documented by: Phenazopyridine HCl (Phenazopyridine Hcl 100 Mg Tablet) 100 mg PO TID PRN PRN Reason: pain Last Admin: 06/24/21 19:06 Dose: 100 mg Documented by: Quetiapine Fumarate (Quetiapine Fumarate 200 Mg Tablet) 200 mg PO BEDTIME [facility] Last Admin: 06/26/21 20:18 Dose: 200 mg Documented by: Quetiapine Fumarate (Quetiapine Fumarate 25 Mg Tablet) 75 mg PO Q4H PRN PRN Reason: Anxiety Last Admin: 06/26/21 19:56 Dose: 75 mg Documented by: Trazodone HCl (Trazodone Hcl 100 Mg Tablet) 300 mg PO BEDTIME [facility] Last Admin: 06/26/21 20:18 Dose: 300 mg Documented by: Allergies Allergies Allergy/AdvReac Type Severity Reaction Status Date / Time Iodinated Contrast Media Allergy Severe ANAPHYLAXIS Verified 06/13/21 20:16 [CONTRAST, IV] ibuprofen [From Motrin] Allergy Intermediate SWELLING Verified 06/13/21 20:16 morphine [MORPHINE] Allergy Intermediate RASH Verified 06/13/21 20:16 acetaminophen [From TYLENOL] Allergy Mild HIVES Verified 06/13/21 20:16 bee pollen [Bee Stings] Allergy Mild UNKNOWN Verified 06/13/21 20:16 coconut Allergy Mild HIVES/SWELL Verified 06/13/21 20:16 ING latex [Latex] Allergy Mild HIVES Verified 06/13/21 20:16 NSAIDS (Non-Steroidal Allergy Mild HIVES Verified 06/13/21 20:16 Anti-Inflamma [NSAIDS (NON-STEROIDAL ANTI-INFLAMMA] aspirin [ASA] Allergy Unknown HIVES Verified 06/13/21 20:16 tramadol [TRAMADOL] Allergy Unknown UNKNOWN Verified 06/13/21 20:16 turkey Allergy Unknown UNKNOWN Verified 06/13/21 20:16 lidocaine Allergy Rash Verified 06/13/21 20:16 From Vicodin Allergy Mild RASH Uncoded 06/13/21 20:16 Assessment & Plan Assessment & Plan (1) MDD (major depressive disorder), recurrent episode, severe: Status: Acute Code(s): F33.2 - Major depressive disorder, recurrent severe without psychotic features (2) Cocaine abuse: Status: Acute Code(s): F14.10 - Cocaine abuse, uncomplicated (3) Personality disorder in adult: Status: Acute Code(s): F60.9 - Personality disorder, unspecified Assessment and Plan: Ms. Dumont is a 46 year-old woman with hx of mood disorder, cocaine use, PD, self presented to [facility] ED reporting increased depression in context of cocaine use and lack of stable housing. Pt does admit that she is here in part due to lack of housing and hoping to stay until she gets next check. She reports depressed mood, affect brighter than reported mood. We discusssed risks, bebefits and alternative treatment options, continue seroquel, no control substances will be prescribed. PLAN 1. Admit to M3 2. Continue current medications- NO control substances including benzodiazepine nor opioid medications. 3. OBtain collateral information 4. Aftercare planning Added podiatry consult Greater than 50% of the session was spent on counseling and/or coordination of care Patient educated on: medical condition Reason for contiued inpatient stay Substantial Risk for: harm to self and inability to function
[2021-06-27 10:05] VITALS: BP 119/79; PULSE 88; RESP 18; TEMP 36.4; O2SAT 100
[2021-06-27] MEDS: amLODIPine Besylate 5 MG TABLET PO (10:05)
[2021-06-27] MEDS: Divalproex Sodium 500 MG TABLET.DR PO ×2 (10:12→20:40)
[2021-06-27] MEDS: Omeprazole 40 MG CAPSULE.DR PO (10:12)
[2021-06-27] MEDS: Nicotine Polacrilex 2 MG GUM BUCCAL ×4 (10:12→19:50)
[2021-06-27] MEDS: Gabapentin 400 MG CAPSULE 800 MG PO ×3 (10:13→20:40)
[2021-06-27] MEDS: Baclofen 10 MG TABLET PO ×2 (10:13→20:40)
[2021-06-27] MEDS: QUEtiapine Fumarate 25 MG TABLET 75 MG PO ×2 (13:15→19:47)
[2021-06-27] MEDS: hydrOXYzine HCL 50 MG TABLET PO ×2 (13:15→19:47)
[2021-06-27 18:00] VITALS: BP 123/87; PULSE 98; RESP 18; TEMP 36.9; O2SAT 99
[2021-06-27] MEDS: diphenhydrAMINE HCL 25 MG TABLET 50 MG PO (19:47)
[2021-06-27] MEDS: QUEtiapine Fumarate 200 MG TABLET PO (20:40)
[2021-06-27] MEDS: traZODone HCL 100 MG TABLET 300 MG PO (20:40)
[2021-06-27] MEDS: Albuterol Sulfate 90 MCG 8 GM INHALER 2 PUFF INHALE (20:58)
--- NOTE | 2021-06-27 21:33 | PM.EVENT ---
Event Note Date of Service: 06/27/21 Event Note: Allergy: The patient reported that he felt short of breath after she ate pizza which has per person it. Reports that she is allergic to peppers. Followed by she felt short of breath. Patient received Benadryl. On exam patient does not have stridor, lung exam is clear, breathing comfortably; no rash or hives noted on the skin. Given 1 dose of prednisone 40mg; Spoke to RN for close monitoring of vitals and any rash.
[2021-06-27] MEDS: predniSONE 20 MG TABLET 40 MG PO (21:40)
[2021-06-27] MEDS: Melatonin 3 MG TABLET 6 MG PO (22:09)
[2021-06-28 07:51] LABS: Valproate 64.8 mcg/mL (50.0-100.0)
[2021-06-28 08:13] VITALS: BP 143/77; PULSE 95; TEMP 36.6; O2SAT 98
[2021-06-28] MEDS: Gabapentin 400 MG CAPSULE 800 MG PO ×3 (08:24→20:17)
[2021-06-28 08:25] VITALS: BP 143/77
[2021-06-28] MEDS: amLODIPine Besylate 5 MG TABLET PO (08:25)
[2021-06-28] MEDS: Baclofen 10 MG TABLET PO ×3 (08:25→20:17)
[2021-06-28] MEDS: Divalproex Sodium 500 MG TABLET.DR PO ×2 (08:26→20:17)
[2021-06-28] MEDS: Omeprazole 40 MG CAPSULE.DR PO (08:26)
[2021-06-28] MEDS: Nicotine Polacrilex 2 MG GUM BUCCAL ×3 (08:47→20:26)
[2021-06-28] MEDS: QUEtiapine Fumarate 25 MG TABLET 75 MG PO ×3 (10:16→19:31)
[2021-06-28] MEDS: hydrOXYzine HCL 50 MG TABLET PO ×3 (10:16→19:31)
--- NOTE | 2021-06-28 13:55 | P.PNPSI_ITS ---
Subjective Subjective Date of Service: 06/28/21 Reason For Visit: SI Subjective Notes: Conditional Voluntary Interim History: Pt seen with clinician. Pt with brighter affect than reported mood. Pt reports difficulty sleeping but RN reports pt slept through the night. Pt reports she wants to stay until 06/09 when she gets check. Pt informed of medical necessity to be in inpatient unit, other than lack of stable housing. Pt reports she lives at motel but in the meantime she wants to go to respite. Suicidality conditional to having place to go otherwise pt has been denying suicidal thoughts. Pt at times loud in unit, but able to be redirected. Medication Compliance: Yes Side effects from medications: No Attending Groups: Intermittent Review of Systems Review of Systems Gen: no fever Resp: no sob, no cough CV: no chest, no GUERRERO, no leg edema GI: No n/v, no abd pain Neuro: No confusion Yes all other systems are reviewed and are negative Constitutional: Reports as per HPI and Reports no additional constitutional complaints Eyes: Reports as per HPI and Reports no additional eye complaints Reports system reviewed and no additional complaints, except as documented, Reports as per HPI and Reports dizziness Cardiovascular: Reports as per HPI, Reports no additional cardiovascular complaints and Denies dyspnea Respiratory: Reports as per HPI, Reports no additional respiratory complaints and Denies dyspnea Gastrointestinal: Reports as per HPI, Reports no additional gastrointestinal complaints, Reports constipation, Reports GI cramping, Denies dyspepsia, Denies heartburn and Denies nausea Musculoskeletal: Reports no additional musculoskeletal complaints, Reports as per HPI, Reports arthralgias (Bilateral knee pain. Bilateral leg pain. ) and Reports radiating pain into limb Reports system reviewed and no additional complaints, except as documented, Reports as per HPI and Reports dizziness Psychiatric: Reports no additional psychiatric complaints, Reports as per HPI, Reports depression and Reports suicidal ideation Mental Status Exam Mental Status Exam Narrative: Appearance: MO, casually groomed, fair hygiene in NAD Behavior:superficially cooperative, irritable at times psychomotor: no agitation or retardation noted Speech:clear, normal rate/rhythm, spontaneous Thought process:linear Thought content: no signs of psychosis, future oriented Mood: depressed Affect: brighter than reported mood SI:denies HI:none VH/AH:AH Delusions:none Insight/judgment:poor x 2. Memory/cog: alert, oriented x 3. grossly intact to conversational testing. Diagnostics Vital Signs (24Hr): Vital Signs - 24 hr 06/27/21 18:00 06/28/21 08:13 06/28/21 08:25 Temperature 98.4 F 97.8 F Pulse Rate 98 95 Respiratory Rate 18 Blood Pressure 123/87 143/77 H 143/77 H Pulse Oximetry 99 98 Body Mass Index 29.8 Labs Results: 06/21/21 19:19 06/21/21 19:19 Labs: Laboratory Results - last 48 hr 06/28/21 07:02 Valproic Acid 64.8 Imaging Radiology Impressions: ITS Impressions Knee X-Ray 06/21/21 18:02 Impression: Chronic appearing degenerative and postoperative changes as described. I do not appreciate any acute bony abnormality. Knee X-Ray 06/21/21 18:02 Impression: Chronic appearing degenerative and postoperative changes as described. I do not appreciate any acute bony abnormality. Tibia/Fibula X-Ray 06/21/21 18:02 Impression: Chronic appearing degenerative and postoperative changes as described. I do not appreciate any acute bony abnormality. Tibia/Fibula X-Ray 06/21/21 18:02 Impression: Chronic appearing degenerative and postoperative changes as described. I do not appreciate any acute bony abnormality. Medications Medications Current Medications Al Hydroxide/Mg Hydroxide (Magnesium Hydrox/Alum Hydrox 30 Ml Oral.Susp) 30 ml PO Q6H PRN PRN Reason: Heartburn/Nausea Albuterol Sulfate (Albuterol Sulfate 90 Mcg 8 Gm Inhaler) 2 puff INHALE Q4H PRN PRN Reason: Shortness Of Breath Last Admin: 06/27/21 20:58 Dose: 2 puff Documented by: Amlodipine Besylate (Amlodipine Besylate 5 Mg Tablet) 5 mg PO DAILY [facility]; Protocol Last Admin: 06/28/21 08:25 Dose: 5 mg Documented by: Baclofen (Baclofen 10 Mg Tablet) 10 mg PO TID [facility] Cefuroxime Axetil (Cefuroxime Axetil 500 Mg Tablet) 500 mg PO BID [facility] Last Admin: 06/28/21 08:26 Dose: 500 mg Documented by: Divalproex Sodium (Divalproex Sodium 500 Mg Tablet.) 500 mg PO BID [facility] Last Admin: 06/28/21 08:26 Dose: 500 mg Documented by: Gabapentin (Gabapentin 400 Mg Capsule) 800 mg PO TID [facility] Last Admin: 06/28/21 08:24 Dose: 800 mg Documented by: Hydroxyzine HCl (Hydroxyzine Hcl 50 Mg Tablet) 50 mg PO Q4H PRN PRN Reason: Anxiety Last Admin: 06/28/21 10:16 Dose: 50 mg Documented by: Magnesium Hydroxide (Milk Of Magnesia 30 Ml Oral.Susp) 30 ml PO DAILY PRN PRN Reason: Constipation Last Admin: 06/24/21 03:57 Dose: 30 ml Documented by: Melatonin (Melatonin 3 Mg Tablet) 6 mg PO BEDTIME [facility] Last Admin: 06/27/21 22:09 Dose: 6 mg Documented by: Nicotine Polacrilex (Nicotine Polacrilex 2 Mg Gum) 2 mg BUCCAL Q2H PRN PRN Reason: Nicotine Cravings Last Admin: 06/28/21 08:47 Dose: 2 mg Documented by: Omeprazole (Omeprazole 40 Mg Capsule.Dr) 40 mg PO DAILY [facility] Last Admin: 06/28/21 08:26 Dose: 40 mg Documented by: Phenazopyridine HCl (Phenazopyridine Hcl 100 Mg Tablet) 100 mg PO TID PRN PRN Reason: pain Last Admin: 06/24/21 19:06 Dose: 100 mg Documented by: Quetiapine Fumarate (Quetiapine Fumarate 200 Mg Tablet) 200 mg PO BEDTIME [facility] Last Admin: 06/27/21 20:40 Dose: 200 mg Documented by: Quetiapine Fumarate (Quetiapine Fumarate 25 Mg Tablet) 75 mg PO Q4H PRN PRN Reason: Anxiety Last Admin: 06/28/21 10:16 Dose: 75 mg Documented by: Trazodone HCl (Trazodone Hcl 100 Mg Tablet) 300 mg PO BEDTIME [facility] Last Admin: 06/27/21 20:40 Dose: 300 mg Documented by: Allergies Allergies Allergy/AdvReac Type Severity Reaction Status Date / Time Iodinated Contrast Media Allergy Severe ANAPHYLAXIS Verified 06/13/21 20:16 [CONTRAST, IV] ibuprofen [From Motrin] Allergy Intermediate SWELLING Verified 06/13/21 20:16 morphine [MORPHINE] Allergy Intermediate RASH Verified 06/13/21 20:16 acetaminophen [From TYLENOL] Allergy Mild HIVES Verified 06/13/21 20:16 bee pollen [Bee Stings] Allergy Mild UNKNOWN Verified 06/13/21 20:16 coconut Allergy Mild HIVES/SWELL Verified 06/13/21 20:16 ING latex [Latex] Allergy Mild HIVES Verified 06/13/21 20:16 NSAIDS (Non-Steroidal Allergy Mild HIVES Verified 06/13/21 20:16 Anti-Inflamma [NSAIDS (NON-STEROIDAL ANTI-INFLAMMA] aspirin [ASA] Allergy Unknown HIVES Verified 06/13/21 20:16 tramadol [TRAMADOL] Allergy Unknown UNKNOWN Verified 06/13/21 20:16 turkey Allergy Unknown UNKNOWN Verified 06/13/21 20:16 lidocaine Allergy Rash Verified 06/13/21 20:16 Peppers, Green Allergy Shortness Verified 06/28/21 00:31 of Breath Peppers, Jalapeno Allergy Shortness Verified 06/28/21 00:31 of Breath Peppers, Red Allergy Shortness Verified 06/28/21 00:31 of Breath Peppers, Yellow Allergy Shortness Verified 06/28/21 00:31 of Breath From Vicodin Allergy Mild RASH Uncoded 06/13/21 20:16 Assessment & Plan Assessment & Plan (1) MDD (major depressive disorder), recurrent episode, severe: Status: Acute Code(s): F33.2 - Major depressive disorder, recurrent severe without psychotic features (2) Cocaine abuse: Status: Acute Code(s): F14.10 - Cocaine abuse, uncomplicated (3) Personality disorder in adult: Status: Acute Code(s): F60.9 - Personality disorder, unspecified Assessment and Plan: Ms. Dumont is a 46 year-old woman with hx of mood disorder, cocaine use, PD, self presented to [facility] reporting increased depression in context of cocaine use and lack of stable housing. Pt does admit that she is here in part due to lack of housing and hoping to stay until she gets next check. She reports depressed mood, affect brighter than reported mood. We discusssed risks, bebefits and alternative treatment options, continue seroquel, no control substances will be prescribed. PLAN 1. Admit to M3 2. Continue current medications- NO control substances including benzodiazepine nor opioid medications. 3. OBtain collateral information 4. Aftercare planning Added podiatry consult Greater than 50% of the session was spent on counseling and/or coordination of care Reason for contiued inpatient stay Substantial Risk for: stable for discharge
[2021-06-28 20:05] VITALS: BP 143/82; PULSE 100; RESP 18; TEMP 36.6; O2SAT 99
[2021-06-28] MEDS: traZODone HCL 100 MG TABLET 300 MG PO (20:17)
[2021-06-28] MEDS: QUEtiapine Fumarate 200 MG TABLET PO (20:17)
[2021-06-28] MEDS: Melatonin 3 MG TABLET 6 MG PO (20:17)
[2021-06-28] MEDS: Albuterol Sulfate 90 MCG 8 GM INHALER 2 PUFF INHALE (20:26)
[2021-06-29] MEDS: Phenazopyridine HCL 100 MG TABLET PO (04:48)
[2021-06-29] MEDS: hydrOXYzine HCL 50 MG TABLET PO ×2 (04:49→12:15)
[2021-06-29] MEDS: QUEtiapine Fumarate 25 MG TABLET 75 MG PO ×2 (04:49→12:19)
[2021-06-29] MEDS: Nicotine Polacrilex 2 MG GUM BUCCAL ×4 (04:50→21:35)
[2021-06-29 06:00] VITALS: BP 123/87; PULSE 99; RESP 18; TEMP 36.4; O2SAT 99
[2021-06-29 10:15] VITALS: BP 124/74; PULSE 93
[2021-06-29] MEDS: Gabapentin 400 MG CAPSULE 800 MG PO ×3 (10:15→20:00)
[2021-06-29] MEDS: Divalproex Sodium 500 MG TABLET.DR PO ×2 (10:15→20:09)
[2021-06-29] MEDS: Omeprazole 40 MG CAPSULE.DR PO (10:15)
[2021-06-29] MEDS: Baclofen 10 MG TABLET PO ×3 (10:15→20:09)
[2021-06-29] MEDS: amLODIPine Besylate 5 MG TABLET PO (10:15)
--- NOTE | 2021-06-29 13:57 | HO.PSYCHPN ---
Subjective Subjective Date of Service: 06/29/21 Reason For Visit: SI Interim History: pt seen multiple times in the morning seated in the milieu in her wheelchair. pleasant, approachable, cooperative. compliments MDs attire. states she is not quite ready to leave the hospital, hoping to be able to stay until . states Dr. Masters placed a podiatry consult and she would like to have that before she goes, for a start. pt requests pain medications and is referred to attending, bill, for discussion upon her return. her only other request is to verify that the podiatry consult has been ordered. per staff, c/o anx 07/18. HI toward a particular staff member. taking seroquel and atarax PRNs. visible, singing eves. c/o AH. med-compliant. social. Mental Status Exam Mental Status Exam Narrative: Appearance: casually groomed, fair hygiene in NAD Behavior:superficially cooperative psychomotor: no agitation or retardation noted Speech:clear, normal rate/rhythm, spontaneous Thought process:linear Thought content: no signs of psychosis, future oriented Mood: anxious Affect: brighter than reported mood SI:none expressed HI:none expressed VH/AH: none expresssed Delusions: none expressed Memory/cog: alert, oriented x 3. grossly intact to conversational testing. Diagnostics Vital Signs (24Hr): Vital Signs - 24 hr 06/28/21 20:05 06/29/21 06:00 06/29/21 10:15 Temperature 98 F 97.5 F Pulse Rate 100 99 93 Respiratory Rate 18 18 Blood Pressure 143/82 H 123/87 124/74 Pulse Oximetry 99 99 Body Mass Index 29.8 Labs Results: 06/21/21 19:19 06/21/21 19:19 Labs: Laboratory Results - last 48 hr 06/28/21 07:02 Valproic Acid 64.8 Imaging Radiology Impressions: ITS Impressions Knee X-Ray 06/21/21 18:02 Impression: Chronic appearing degenerative and postoperative changes as described. I do not appreciate any acute bony abnormality. Knee X-Ray 06/21/21 18:02 Impression: Chronic appearing degenerative and postoperative changes as described. I do not appreciate any acute bony abnormality. Tibia/Fibula X-Ray 06/21/21 18:02 Impression: Chronic appearing degenerative and postoperative changes as described. I do not appreciate any acute bony abnormality. Tibia/Fibula X-Ray 06/21/21 18:02 Impression: Chronic appearing degenerative and postoperative changes as described. I do not appreciate any acute bony abnormality. Medications Medications Current Medications Al Hydroxide/Mg Hydroxide (Magnesium Hydrox/Alum Hydrox 30 Ml Oral.Susp) 30 ml PO Q6H PRN PRN Reason: Heartburn/Nausea Albuterol Sulfate (Albuterol Sulfate 90 Mcg 8 Gm Inhaler) 2 puff INHALE Q4H PRN PRN Reason: Shortness Of Breath Last Admin: 06/28/21 20:26 Dose: 2 puff Documented by: Amlodipine Besylate (Amlodipine Besylate 5 Mg Tablet) 5 mg PO DAILY [facility]; Protocol Last Admin: 06/29/21 10:15 Dose: 5 mg Documented by: Baclofen (Baclofen 10 Mg Tablet) 10 mg PO TID [facility] Last Admin: 06/29/21 10:15 Dose: 10 mg Documented by: Divalproex Sodium (Divalproex Sodium 500 Mg Tablet.) 500 mg PO BID [facility] Last Admin: 06/29/21 10:15 Dose: 500 mg Documented by: Gabapentin (Gabapentin 400 Mg Capsule) 800 mg PO TID [facility] Last Admin: 06/29/21 10:15 Dose: 800 mg Documented by: Hydroxyzine HCl (Hydroxyzine Hcl 50 Mg Tablet) 50 mg PO Q4H PRN PRN Reason: Anxiety Last Admin: 06/29/21 12:15 Dose: 50 mg Documented by: Magnesium Hydroxide (Milk Of Magnesia 30 Ml Oral.Susp) 30 ml PO DAILY PRN PRN Reason: Constipation Last Admin: 06/24/21 03:57 Dose: 30 ml Documented by: Melatonin (Melatonin 3 Mg Tablet) 6 mg PO BEDTIME [facility] Last Admin: 06/28/21 20:17 Dose: 6 mg Documented by: Nicotine Polacrilex (Nicotine Polacrilex 2 Mg Gum) 2 mg BUCCAL Q2H PRN PRN Reason: Nicotine Cravings Last Admin: 06/29/21 09:30 Dose: 2 mg Documented by: Omeprazole (Omeprazole 40 Mg Capsule.) 40 mg PO DAILY [facility] Last Admin: 06/29/21 10:15 Dose: 40 mg Documented by: Phenazopyridine HCl (Phenazopyridine Hcl 100 Mg Tablet) 100 mg PO TID PRN PRN Reason: pain Last Admin: 06/29/21 04:48 Dose: 100 mg Documented by: Quetiapine Fumarate (Quetiapine Fumarate 200 Mg Tablet) 200 mg PO BEDTIME [facility] Last Admin: 06/28/21 20:17 Dose: 200 mg Documented by: Quetiapine Fumarate (Quetiapine Fumarate 25 Mg Tablet) 75 mg PO Q4H PRN PRN Reason: Anxiety Last Admin: 06/29/21 12:19 Dose: 75 mg Documented by: Trazodone HCl (Trazodone Hcl 100 Mg Tablet) 300 mg PO BEDTIME [facility] Last Admin: 06/28/21 20:17 Dose: 300 mg Documented by: Allergies Allergies Allergy/AdvReac Type Severity Reaction Status Date / Time Iodinated Contrast Media Allergy Severe ANAPHYLAXIS Verified 06/13/21 20:16 [CONTRAST, IV] ibuprofen [From Motrin] Allergy Intermediate SWELLING Verified 06/13/21 20:16 morphine [MORPHINE] Allergy Intermediate RASH Verified 06/13/21 20:16 acetaminophen [From TYLENOL] Allergy Mild HIVES Verified 06/13/21 20:16 bee pollen [Bee Stings] Allergy Mild UNKNOWN Verified 06/13/21 20:16 coconut Allergy Mild HIVES/SWELL Verified 06/13/21 20:16 ING latex [Latex] Allergy Mild HIVES Verified 06/13/21 20:16 NSAIDS (Non-Steroidal Allergy Mild HIVES Verified 06/13/21 20:16 Anti-Inflamma [NSAIDS (NON-STEROIDAL ANTI-INFLAMMA] aspirin [ASA] Allergy Unknown HIVES Verified 06/13/21 20:16 tramadol [TRAMADOL] Allergy Unknown UNKNOWN Verified 06/13/21 20:16 turkey Allergy Unknown UNKNOWN Verified 06/13/21 20:16 lidocaine Allergy Rash Verified 06/13/21 20:16 Peppers, Green Allergy Shortness Verified 06/28/21 00:31 of Breath Peppers, Jalapeno Allergy Shortness Verified 06/28/21 00:31 of Breath Peppers, Red Allergy Shortness Verified 06/28/21 00:31 of Breath Peppers, Yellow Allergy Shortness Verified 06/28/21 00:31 of Breath From Vicodin Allergy Mild RASH Uncoded 06/13/21 20:16 Assessment & Plan Assessment & Plan (1) MDD (major depressive disorder), recurrent episode, severe: Status: Acute Code(s): F33.2 - Major depressive disorder, recurrent severe without psychotic features (2) Cocaine abuse: Status: Acute Code(s): F14.10 - Cocaine abuse, uncomplicated (3) Personality disorder in adult: Status: Acute Code(s): F60.9 - Personality disorder, unspecified Assessment and Plan: Ms. Dumont is a 46 year-old woman with hx of mood disorder, cocaine use, PD, self [place] [facility] [place] reporting increased depression in context of cocaine use and lack of stable housing. Pt does admit that she is here in part due to lack of housing and hoping to stay until she gets next check. She reports depressed mood, affect brighter than reported mood. We discusssed risks, bebefits and alternative treatment options, continue seroquel, no control substances will be prescribed. PLAN 1. Admit to M3 2. Continue current medications- NO control substances including benzodiazepine nor opioid medications. 3. OBtain collateral information 4. Aftercare planning Added podiatry consult Greater than 50% of the session was spent on counseling and/or coordination of care Reason for contiued inpatient stay Substantial Risk for: harm to self
[2021-06-29] MEDS: Albuterol Sulfate 90 MCG 8 GM INHALER 2 PUFF INHALE ×2 (17:30→21:04)
[2021-06-29 18:47] LABS: COVID-19 Test Negative (Negative)
[2021-06-29] MEDS: Melatonin 3 MG TABLET 6 MG PO (20:06)
[2021-06-29] MEDS: traZODone HCL 100 MG TABLET 300 MG PO (20:06)
[2021-06-29] MEDS: QUEtiapine Fumarate 200 MG TABLET PO (20:09)
[2021-06-30 08:50] VITALS: BP 150/81; PULSE 92; RESP 16; TEMP 36.7; O2SAT 100
[2021-06-30] MEDS: Divalproex Sodium 500 MG TABLET.DR PO (09:09)
[2021-06-30] MEDS: Baclofen 10 MG TABLET PO (09:09)
[2021-06-30] MEDS: Gabapentin 400 MG CAPSULE 800 MG PO (09:09)
[2021-06-30 09:10] VITALS: BP 150/81; PULSE 92
[2021-06-30] MEDS: Omeprazole 40 MG CAPSULE.DR PO (09:10)
[2021-06-30] MEDS: amLODIPine Besylate 5 MG TABLET PO (09:10)
[2021-06-30] MEDS: QUEtiapine Fumarate 25 MG TABLET 75 MG PO (09:10)
[2021-06-30] MEDS: hydrOXYzine HCL 50 MG TABLET PO (09:10)
[2021-06-30] MEDS: Nicotine Polacrilex 2 MG GUM BUCCAL (09:25)
--- NOTE | 2021-06-30 10:10 | PM.PSYDC ---
DS: Providers Provider Date of Service: 06/30/21 Date of admission: 06/22/21 13:56 Primary care physician: Unknown Physician Consults: 06/27/21 15:47 Consult to Podiatry Routine Consulting Provider: Christina Shannon Reason for consultation: overgrown toenails Has provider been notified: Yes 06/27/21 21:32 Consult to Hospitalist Stat Consulting Provider: Hospitalist Reason For Exam: SOB DS: Diagnosis Discharge Diagnosis (1) MDD (major depressive disorder), recurrent episode, severe: Status: Acute (2) Cocaine abuse: Status: Acute (3) Personality disorder in adult: Status: Acute DS: Medications Discharge Medications Home Medications: Previous Rx's Medication Instructions Recorded albuterol sulfate 90 mcg/actuation 2 puff INHALATION Q4H PRN #6.7 g 06/29/21 aerosol inhaler (Ventolin HFA) amlodipine 5 mg tablet 5 mg PO DAILY #30 tab 06/29/21 baclofen 10 mg tablet 10 mg PO TID #30 tab 06/29/21 divalproex 500 mg tablet,delayed 500 mg PO BID #60 tab 06/29/21 release gabapentin 800 mg tablet 1 tab PO TID #60 tab 06/29/21 hydroxyzine HCl 50 mg tablet 50 mg PO TID PRN #90 tab 06/29/21 melatonin 3 mg tablet 6 mg PO BEDTIME #60 tab 06/29/21 nicotine (polacrilex) 2 mg gum 2 mg BUCCAL Q2H PRN #20 ea 06/29/21 omeprazole 40 mg capsule,delayed 40 mg PO DAILY #30 cap 06/29/21 release phenazopyridine 100 mg tablet 100 mg PO TID PRN #45 tab 06/29/21 quetiapine 200 mg tablet 200 mg PO BEDTIME #30 tab 06/29/21 quetiapine 25 mg tablet 75 mg PO TID PRN #135 tab 06/29/21 trazodone 100 mg tablet 300 mg PO BEDTIME #45 tab 06/29/21 Mental Status Exam Mental Status Exam Narrative: Appearance: casually groomed, fair hygiene in NAD Behavior:superficially cooperative psychomotor: no agitation or retardation noted Speech:clear, normal rate/rhythm, spontaneous Thought process:linear Thought content: no signs of psychosis, future oriented Mood: anxious Affect: brighter than reported mood SI:none expressed HI:none expressed VH/AH: none expresssed Delusions: none expressed Memory/cog: alert, oriented x 3. grossly intact to conversational testing. Data Data Completed and Pending Completed studies during hospitalization [Text1]: 06/23/21 06/28/21 06/29/21 Unknown 07:02 18:20 Urine Test NEGATIVE Valproic Acid 64.8 COVID-19 ([facility]) Negative COVID-19 Clin Com See Note Imaging Diagnostic Imaging Impressions Knee X-Ray 06/21/21 18:02 Impression: Chronic appearing degenerative and postoperative changes as described. I do not appreciate any acute bony abnormality. Knee X-Ray 06/21/21 18:02 Impression: Chronic appearing degenerative and postoperative changes as described. I do not appreciate any acute bony abnormality. Tibia/Fibula X-Ray 06/21/21 18:02 Impression: Chronic appearing degenerative and postoperative changes as described. I do not appreciate any acute bony abnormality. Tibia/Fibula X-Ray 06/21/21 18:02 Impression: Chronic appearing degenerative and postoperative changes as described. I do not appreciate any acute bony abnormality. DS: Summary Hospital Course Hospital Course: HPI: Subjective Notes: Conditional Voluntary Narrative: Ms. Dumont is a 46 year-old with hx of Mood Disorder, Cocaine use disorder who self presented to [facility] [place] [facility] [place] reporting increased depression, suicidal ideation with plan to OD. Pt is known to from previous admission with similar presentation. In the ED, her utox was positive for cocaine. On the unit, pt reports hearing voices telling her to hurt herself. Pt endorses depressed mood and suicidal ideation with plan to OD. She denies relapsing on cocaine but utox was positive for cocaine. She reports difficulty sleeping. Pt does report that she has plan to stay on the unit until she gets next paycheck beginning of next month. She was just recently discharged from [facility] unit in [place] through her insurance company [facility]. Pt has chronic hip pain. Pt asks for opioid which was explained to pt will not be prescribed as pt continues to struggle with substance use and may not be appropriate use of termite treater helper prescription to opioid. Note that her mass pat shows pt has gotten about 17 prescriptions from about 15 prescriber from ED or [facility] services. Past Psychiatric History: Inpatient: multiple past admission, last at 04/2021, pt just recently discharged from [facility] in 05/2021.? HOSPITAL COURSE On the unit, Ms. Dumont was admitted on CV and placed on 15 minutes checks for safety. We discussed risks, benefits and alternative treatment options. Pt reported combination of depakote and seroquel had worked well for mood. These medications were restarted. Her affect gradually presented as less irritable, brighter. She denied suicidal ideation except at times when she reported conditional suicidality if she did not have housing. She minimize her substance use but did agree to continue OP psychiatric and substance use treatment. Pt presented as increasingly more future oriented, looking forward to see family and continue OP treatment. There were no incidences of disruptive behaviors nor use of restrains. Status at Discharge Cognitive/behavioral status at discharge: Pt less irritable, no signs of aggression towards self or others. No SI/HI. Functional status at discharge: uses cane/walker Overall status at discharge: patient is progressing back to baseline Time Spent with Patient Time attestation: Total time spent providing and/or coordinating discharge services: Discharge Plan Discharge Patient Disposition: Home, Self-Care Discharge Diagnosis: MDD, recurrent, moderate Cocaine Use Disorder Referrals: Linda Meadows (therapy intake) [Other] - 07/02/21 10:00 am (Appointment is in office. When you finish appointment, go to the desktop analyst to reserve a computer room for psychiatry appointment later in the month) Nancy Sarmiento (psychiatrist) [Other] - 07/29/21 10:00 am (Appointment is telehealth, but you can use a computer in the computer room at the clinic) Nancy Sarmiento (psychiatrist) [Other] - 08/24/21 9:00 am (Appointment is telehealth, but you can use a computer in the computer room at the clinic) [facility] [Other] - 1 Week (Walk In Center Hours: Mon, , , 8:30 am to 8 pm Th, Mon 8:30 am to 4pm) Physician,Unknown J [Primary Care Provider] - 1 Week Discharge Medications: New nicotine (polacrilex) 2 mg Gum 2 mg buccal Q2H PRN (Reason: Nicotine Cravings) Qty: 20 RF: 0 baclofen 10 mg Tablet 10 mg PO TID Qty: 30 RF: 0 quetiapine 25 mg Tablet 75 mg PO TID PRN (Reason: Anxiety) Qty: 135 RF: 1 quetiapine 200 mg Tablet 200 mg PO BEDTIME Qty: 30 RF: 0 hydroxyzine HCl 50 mg Tablet 50 mg PO TID PRN (Reason: Anxiety) Qty: 90 RF: 0 melatonin 3 mg Tablet 6 mg PO BEDTIME Qty: 60 RF: 0 amlodipine 5 mg Tablet 5 mg PO DAILY Qty: 30 RF: 0 divalproex 500 mg Tablet,Delayed Release (Dr/Ec) 500 mg PO BID Qty: 60 RF: 0 omeprazole 40 mg Capsule,Delayed Release(Dr/Ec) 40 mg PO DAILY Qty: 30 RF: 0 trazodone 100 mg Tablet 300 mg PO BEDTIME Qty: 45 RF: 0 phenazopyridine 100 mg Tablet 100 mg PO TID PRN (Reason: pain) Qty: 45 RF: 0 Continued gabapentin 800 mg tablet 1 tab PO TID Qty: 60 RF: 0 albuterol sulfate [Ventolin HFA] 90 mcg/actuation Hfa Aerosol Inhaler 2 puff inhalation Q4H PRN (Reason: Shortness Of Breath) Qty: 6.7 RF: 0 Discontinued quetiapine 200 mg Tablet 200 mg PO BEDTIME Qty: 30 RF: 0 trazodone 100 mg Tablet 300 mg PO BEDTIME Qty: 90 RF: 0 quetiapine 100 mg Tablet 100 mg PO Q6H PRN (Reason: moderate anxiety to severe) Qty: 90 RF: 0 divalproex 250 mg tablet,delayed release (DR/EC) 500 mg PO BID RF: 0 quetiapine 200 mg tablet 1 tab PO BEDTIME RF: 0 amlodipine 5 mg tablet 1 tab PO DAILY RF: 0 omeprazole 40 mg capsule,delayed release(DR/EC) 1 cap PO DAILY RF: 0 quetiapine 50 mg tablet 50 mg PO Q6H PRN (Reason: Anxiety) RF: 0 baclofen 5 mg tablet 2 tab PO BID RF: 0 cefuroxime axetil 500 mg tablet 500 mg PO BID 7 Days Qty: 14 RF: 0 phenazopyridine [Pyridium] 100 mg tablet 100 mg PO TID PRN (Reason: pain) Qty: 6 RF: 0 Discharge Orders: Discharge Order (Routine); Ordered 06/30/21 Ordered By: Mariella Do Diet: regular diet Activity on Discharge: As tolerated Stand Alone Forms: Patient Portal Discharge page, Community Support Care Plan Goals: 1. Maintain mood 2. No SI/HI. Health Concerns: 1. Follow up with PCP Plan of Treatment: 1. Follow up with appointment 2. Go to nearest ED or call 911 in event of emergency. Assessment: Pt with brighter affect, no SI/HI. No signs of aggression towards self or others. Discharge Date/Time: 06/30/21 11:45
--- NOTE | 2021-06-30 10:50 | PC.NURSE ---
Patient is alert, fully oriented, pleasant and cooperativw with discharge assessment. She denies ideation, plan or intent to harm self or others. She denies auditory and visual hallucinations. She reports anxiety is better controlled on current med regime. She is ambulating with cane without difficulty. Patient verbalizes awareness that she is being discharged to [facility] respite in [place]. She verbalizes understanding of prescribed meds but is aware they will be administered at respite. She denies current physical complaint.
== END 2021-06-30 11:45 | disposition home or self-care (01) | DRG 885 ==
LOC: HO.ED 17:56 → HO.PADLT16 06-22 14:10
PROVIDERS: Physician Assistant; Admitting Provider Psychiatry & Neurology Psychiatry; Emergency Provider Emergency Medicine; Visit Provider Social Worker
DX: F33.2 Major depressive disorder, recurrent severe without psychotic features (principal); R45.851 Suicidal ideations; F14.10 Cocaine abuse, uncomplicated; G35 Multiple sclerosis; F43.10 Post-traumatic stress disorder, unspecified; K21.9 Gastro-esophageal reflux disease without esophagitis; F60.9 Personality disorder, unspecified; F17.210 Nicotine dependence, cigarettes, uncomplicated; Z71.6 Tobacco abuse counseling; Z20.822 Contact with and (suspected) exposure to COVID-19; Z88.5 Allergy status to narcotic agent; Z88.6 Allergy status to analgesic agent; Z79.899 Other long term (current) drug therapy
CPT/HCPCS: 36415; 73564; 73590; 80053; 80061; 80164; 80307; 81025; 82077; 82607; 82746; 83036; 84443; 85025; 87635; 93005; 99285; Q0163

== ENCOUNTER 2021-08-31 21:19 | Inpatient (IN) | payer OTHER, SELFPAY ==
[2021-08-31 20:54] VITALS: BMI 30.7
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
[2021-08-31] MEDS: Nicotine Polacrilex 2 MG GUM BUCCAL (22:55)
[2021-08-31] MEDS: QUEtiapine Fumarate 25 MG TABLET 75 MG PO (22:58)
[2021-08-31] MEDS: traZODone HCL 50 MG TABLET PO (22:58)
[2021-08-31] MEDS: hydrOXYzine HCL 50 MG TABLET PO (22:58)
[2021-08-31 23:46] VITALS: BP 125/56; PULSE 96; O2SAT 99
[2021-09-01 06:00] VITALS: BP 133/75; PULSE 78; RESP 16; TEMP 36.1; O2SAT 100
[2021-09-01 09:04] VITALS: BP 142/84; PULSE 83; RESP 16
[2021-09-01 09:05] VITALS: BP 142/84; PULSE 83
[2021-09-01] MEDS: Baclofen 10 MG TABLET PO ×3 (09:05→20:38)
[2021-09-01] MEDS: Gabapentin 400 MG CAPSULE 800 MG PO ×3 (09:05→20:37)
[2021-09-01] MEDS: amLODIPine Besylate 5 MG TABLET PO (09:05)
[2021-09-01] MEDS: Omeprazole 40 MG CAPSULE.DR PO (09:05)
[2021-09-01] MEDS: Divalproex Sodium 500 MG TABLET.DR PO ×2 (09:06→20:37)
[2021-09-01] MEDS: QUEtiapine Fumarate 25 MG TABLET 75 MG PO ×3 (09:13→19:44)
[2021-09-01 12:02] LABS: Alanine Aminotransferase 8 U/L (0-31); Albumin Level 3.8 g/dL (3.5-5.0); Alkaline Phosphatase 60 U/L (39-117); Anion Gap 12 (12-20); Aspartate Amino Transferase 9 U/L (5-31); Bilirubin Total < 0.2 mg/dL (0.0-1.0); Blood Urea Nitrogen 8 mg/dL (9-16); Calcium 9.1 mg/dL (8.4-10.2); Carbon Dioxide 23 mmol/L (22-29); Chloride 109 mmol/L (96-108); Creatinine Clr Calc Pharmacy 98.2; Estimated Glomerular Filt Rate > 60; Glucose Random 105 mg/dL (60-115); Sodium 140 mmol/L (135-145); Total Protein 6.4 g/dL (6.5-8.0)
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
[2021-09-01 18:00] VITALS: BP 146/73; PULSE 88; RESP 16; TEMP 36.3; O2SAT 98
[2021-09-01] MEDS: Nicotine Polacrilex 2 MG GUM BUCCAL ×2 (19:29→22:04)
[2021-09-01] MEDS: hydrOXYzine HCL 50 MG TABLET PO (19:44)
[2021-09-01] MEDS: traZODone HCL 100 MG TABLET 300 MG PO (20:37)
[2021-09-01] MEDS: Melatonin 3 MG TABLET 6 MG PO (20:37)
[2021-09-01] MEDS: QUEtiapine Fumarate 200 MG TABLET PO (20:38)
[2021-09-02 09:03] VITALS: BP 130/82; PULSE 88
[2021-09-02] MEDS: Nicotine Polacrilex 2 MG GUM BUCCAL ×4 (09:03→19:49)
[2021-09-02] MEDS: amLODIPine Besylate 5 MG TABLET PO (09:03)
[2021-09-02] MEDS: Baclofen 10 MG TABLET PO ×3 (09:04→20:57)
[2021-09-02] MEDS: Omeprazole 40 MG CAPSULE.DR PO (09:04)
[2021-09-02] MEDS: Gabapentin 400 MG CAPSULE 800 MG PO ×3 (09:04→20:56)
[2021-09-02] MEDS: Divalproex Sodium 500 MG TABLET.DR PO ×2 (09:04→20:57)
[2021-09-02] MEDS: QUEtiapine Fumarate 25 MG TABLET 75 MG PO ×3 (09:19→20:29)
--- NOTE | 2021-09-02 10:18 | HO.PSYCHPN ---
Subjective Subjective Date of Service: 09/02/21 Reason For Visit: Unspecified depressive disorder, personality disor Subjective Notes: Conditional Voluntary Healthcare Proxy: No Guardianship: No Medical Problems Affecting Mental Status: No Interim History: Pt sleeping in ebed, not waking up for interview Medication Compliance: Yes Side effects from medications: Yes (?sedation) Attending Groups: No Review of Systems check for EPS Mental Status Exam Mental Status Exam Narrative: sleeping in bed- Patient Appearance: Fatigued Patient Orientation: Person Level of Consciousness: Drowsy Patient Behavior: Passive Mood Description: Calm Ability to Follow Directions: Fair Speech Pattern: Garbled Thought Process: Intact Thought Content: positive for Intact Abnormal Motor Activity Signs and Symptoms: Psychomotor Retardation Judgement: Fair Diagnostics Vital Signs (24Hr): Vital Signs - 24 hr 09/01/21 18:00 09/02/21 09:03 Temperature 97.4 F Pulse Rate 88 88 Respiratory Rate 16 Blood Pressure 146/73 H 130/82 Pulse Oximetry 98 Body Mass Index 30.7 Labs Results: 09/01/21 11:09 Labs: Laboratory Results - last 48 hr 09/01/21 11:09 Sodium 140 Potassium 4.0 Chloride 109 H Carbon Dioxide 23 Anion Gap 12 BUN 8 L Creatinine 0.82 Estim Creat Clear Calc 98.2 Estimated GFR > 60 Random Glucose 105 Calcium 9.1 D Total Bilirubin < 0.2 AST 9 ALT 8 Alkaline Phosphatase 60 Total Protein 6.4 L Albumin 3.8 Medications Medications Current Medications Al Hydroxide/Mg Hydroxide (Magnesium Hydrox/Alum Hydrox 30 Ml Oral.Susp) 30 ml PO Q6H PRN PRN Reason: Heartburn/Nausea Albuterol Sulfate (Albuterol Sulfate 90 Mcg 8 Gm Inhaler) 2 puff INHALE Q4H PRN PRN Reason: Shortness Of Breath Amlodipine Besylate (Amlodipine Besylate 5 Mg Tablet) 5 mg PO DAILY [facility]; Protocol Last Admin: 09/02/21 09:03 Dose: 5 mg Documented by: Baclofen (Baclofen 10 Mg Tablet) 10 mg PO TID [facility] Last Admin: 09/02/21 09:04 Dose: 10 mg Documented by: Divalproex Sodium (Divalproex Sodium 500 Mg Tablet.) 500 mg PO BID [facility] Last Admin: 09/02/21 09:04 Dose: 500 mg Documented by: Gabapentin (Gabapentin 400 Mg Capsule) 800 mg PO TID [facility] Last Admin: 09/02/21 09:04 Dose: 800 mg Documented by: Hydroxyzine HCl (Hydroxyzine Hcl 25 Mg Tablet) 25 mg PO BEDTIME PRN PRN Reason: Anxiety Hydroxyzine HCl (Hydroxyzine Hcl 50 Mg Tablet) 50 mg PO TID PRN PRN Reason: Anxiety Last Admin: 09/01/21 19:44 Dose: 50 mg Documented by: Magnesium Hydroxide (Milk Of Magnesia 30 Ml Oral.Susp) 30 ml PO DAILY PRN PRN Reason: Constipation Melatonin (Melatonin 3 Mg Tablet) 6 mg PO BEDTIME [facility] Last Admin: 09/01/21 20:37 Dose: 6 mg Documented by: Nicotine Polacrilex (Nicotine Polacrilex 2 Mg Gum) 2 mg BUCCAL Q2H PRN PRN Reason: Nicotine Cravings Last Admin: 09/02/21 09:03 Dose: 2 mg Documented by: Omeprazole (Omeprazole 40 Mg Capsule.Dr) 40 mg PO DAILY [facility] Last Admin: 09/02/21 09:04 Dose: 40 mg Documented by: Quetiapine Fumarate (Quetiapine Fumarate 25 Mg Tablet) 75 mg PO TID PRN PRN Reason: Anxiety Last Admin: 09/02/21 09:19 Dose: 75 mg Documented by: Quetiapine Fumarate (Quetiapine Fumarate 200 Mg Tablet) 200 mg PO BEDTIME [facility] Last Admin: 09/01/21 20:38 Dose: 200 mg Documented by: Trazodone HCl (Trazodone Hcl 100 Mg Tablet) 300 mg PO BEDTIME [facility] Last Admin: 09/01/21 20:37 Dose: 300 mg Documented by: Allergies Allergies Allergy/AdvReac Type Severity Reaction Status Date / Time Iodinated Contrast Media Allergy Severe ANAPHYLAXIS Verified 06/13/21 20:16 [CONTRAST, IV] ibuprofen [From Motrin] Allergy Intermediate SWELLING Verified 06/13/21 20:16 morphine [MORPHINE] Allergy Intermediate RASH Verified 06/13/21 20:16 acetaminophen [From TYLENOL] Allergy Mild HIVES Verified 06/13/21 20:16 bee pollen [Bee Stings] Allergy Mild UNKNOWN Verified 06/13/21 20:16 coconut Allergy Mild HIVES/SWELL Verified 06/13/21 20:16 ING latex [Latex] Allergy Mild HIVES Verified 06/13/21 20:16 NSAIDS (Non-Steroidal Allergy Mild HIVES Verified 06/13/21 20:16 Anti-Inflamma [NSAIDS (NON-STEROIDAL ANTI-INFLAMMA] aspirin [ASA] Allergy Unknown HIVES Verified 06/13/21 20:16 tramadol [TRAMADOL] Allergy Unknown UNKNOWN Verified 06/13/21 20:16 turkey Allergy Unknown UNKNOWN Verified 06/13/21 20:16 lidocaine Allergy Rash Verified 06/13/21 20:16 Peppers, Green Allergy Shortness Verified 06/28/21 00:31 of Breath Peppers, Jalapeno Allergy Shortness Verified 06/28/21 00:31 of Breath Peppers, Red Allergy Shortness Verified 06/28/21 00:31 of Breath Peppers, Yellow Allergy Shortness Verified 06/28/21 00:31 of Breath From Vicodin Allergy Mild RASH Uncoded 06/13/21 20:16 Assessment & Plan Assessment & Plan (1) MDD (major depressive disorder), recurrent episode, severe: Status: Acute Code(s): F33.2 - Major depressive disorder, recurrent severe without psychotic features Assessment and Plan: ongoing depression (2) Personality disorder in adult: Status: Acute Code(s): F60.9 - Personality disorder, unspecified Assessment and Plan: mileu therapy (3) Cocaine abuse: Status: Acute Code(s): F14.10 - Cocaine abuse, uncomplicated Assessment and Plan: fatigued s/p cocainue use (4) Multiple sclerosis: Status: Acute Code(s): G35 - Multiple sclerosis Assessment and Plan: Ms. Dumont is a 46 year-old woman with hx of cocaine use, BPD, MDD self presented to [facility] ED reporting increase depressed mood, SI, HI towards aunt. Utox not completed at [facility] but pt does report using cocaine few days ago. She is not a reliable historian but is well known to this unit through previous admission with similar presentation. We discussed risks, benefits and alternative treatment options. Pt agrees to continue depakote and seroquel. PLAN 1. Admit to M5. CV, 15 minutes checks for safety. Monitor safety. 2. Continue Depakote and seroquel 3. Aftercare planning 4. Milieu therapy. I spent minutes with the patient and/or on the patient floor today, greater than?50% of which was spent counseling/coordinating care. Informed Consent: further education needed Reason for contiued inpatient stay Substantial Risk for: rapid decompensation
[2021-09-02] MEDS: hydrOXYzine HCL 50 MG TABLET PO ×2 (16:30→18:38)
[2021-09-02 17:25] VITALS: BP 140/85; PULSE 102; TEMP 36.6
[2021-09-02] MEDS: traZODone HCL 100 MG TABLET 300 MG PO (20:56)
[2021-09-02] MEDS: QUEtiapine Fumarate 200 MG TABLET PO (20:57)
[2021-09-02] MEDS: Melatonin 3 MG TABLET 6 MG PO (20:58)
[2021-09-03 06:00] VITALS: BP 120/75; PULSE 85; RESP 16; TEMP 36.3; O2SAT 97
[2021-09-03] MEDS: Gabapentin 400 MG CAPSULE 800 MG PO ×3 (09:18→19:48)
[2021-09-03] MEDS: Divalproex Sodium 500 MG TABLET.DR PO ×2 (09:19→19:48)
[2021-09-03] MEDS: Omeprazole 40 MG CAPSULE.DR PO (09:19)
[2021-09-03] MEDS: QUEtiapine Fumarate 25 MG TABLET 75 MG PO ×3 (09:19→18:41)
[2021-09-03] MEDS: Baclofen 10 MG TABLET PO ×3 (09:21→19:48)
[2021-09-03] MEDS: amLODIPine Besylate 5 MG TABLET PO (09:21)
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
[2021-09-03] MEDS: hydrOXYzine HCL 50 MG TABLET PO (13:51)
[2021-09-03] MEDS: Capsaicin 0.025% Cream 60 GM TUBE 1 APPL TOPICAL (17:14)
[2021-09-03 17:47] VITALS: BP 141/82; PULSE 100; RESP 18; TEMP 36.2; O2SAT 99
[2021-09-03] MEDS: hydrOXYzine HCL 25 MG TABLET PO (18:51)
[2021-09-03] MEDS: traZODone HCL 100 MG TABLET 300 MG PO (19:48)
[2021-09-03] MEDS: QUEtiapine Fumarate 200 MG TABLET PO (19:49)
[2021-09-03] MEDS: Nicotine Polacrilex 2 MG GUM BUCCAL (19:49)
[2021-09-03] MEDS: Melatonin 3 MG TABLET 6 MG PO (19:49)
[2021-09-04] MEDS: Ondansetron ODT 4 MG TAB.RAPDIS TRANSLINGU ×3 (01:50→21:28)
[2021-09-04 08:03] LABS: Ammonia 41 umol/L (13-55)
[2021-09-04 08:21] LABS: Alanine Aminotransferase 7 U/L (0-31); Albumin Level 3.4 g/dL (3.5-5.0); Alkaline Phosphatase 81 U/L (39-117); Aspartate Amino Transferase 7 U/L (5-31); Bilirubin Direct < 0.2 mg/dL (0.0-0.5); Bilirubin Total < 0.2 mg/dL (0.0-1.0); Total Protein 5.9 g/dL (6.5-8.0)
[2021-09-04 08:40] VITALS: BP 113/58; PULSE 87
[2021-09-04] MEDS: Baclofen 10 MG TABLET PO ×3 (08:40→20:35)
[2021-09-04] MEDS: Omeprazole 40 MG CAPSULE.DR PO (08:40)
[2021-09-04] MEDS: amLODIPine Besylate 5 MG TABLET PO (08:40)
[2021-09-04] MEDS: Gabapentin 400 MG CAPSULE 800 MG PO ×3 (08:40→20:35)
[2021-09-04] MEDS: Divalproex Sodium 500 MG TABLET.DR PO ×2 (08:41→20:35)
[2021-09-04 08:51] LABS: Valproate 43.6 mcg/mL (50.0-100.0)
[2021-09-04] MEDS: Nicotine Polacrilex 2 MG GUM BUCCAL ×3 (09:00→21:25)
[2021-09-04] MEDS: QUEtiapine Fumarate 25 MG TABLET 75 MG PO ×2 (09:00→17:00)
[2021-09-04] MEDS: hydrOXYzine HCL 50 MG TABLET PO ×3 (09:00→21:25)
[2021-09-04 09:20] VITALS: BP 113/58; PULSE 87; TEMP 36.3; O2SAT 98
--- NOTE | 2021-09-04 11:37 | HO.PSYCHPN ---
Subjective Subjective Date of Service: 09/04/21 Reason For Visit: Unspecified depressive disorder, personality disor Subjective Notes: Conditional Voluntary Healthcare Proxy: No Guardianship: No Medical Problems Affecting Mental Status: No Interim History: Pt reports ongoing pain /body pain/back pain her concern, later told me she was suicidal if she left and that she is pissed off about ongoing mood swings and having AH-= Medication Compliance: Yes Side effects from medications: Yes (constipation) Attending Groups: Intermittent Review of Systems Acute medical concerns: No Medical Review of Systems: unchanged Mental Status Exam Mental Status Exam Narrative: cooperative, somewhat demanding- changing what she tells provider - over the AM Patient Appearance: Unkempt Patient Orientation: Person, Place and Situation Level of Consciousness: Awake Patient Behavior: Appropriate Mood Description: Calm Affect Description: Calm (but complaining of mood swings- ) Patient Cognition Impaired: No Ability to Follow Directions: Fair Speech Pattern: Clear Hallucinations: Auditory Delusions: Not Present Thought Process: Intact and Goal Oriented Thought Content: positive for Intact, positive for Goal Oriented, positive for Suicidal Ideation (only if dced) and positive for Homicidal Ideation (not any plan not any particular person) Depressive Symptoms: Increased Irritability, Muscle Pain, Unhappiness and Back Pain Judgement: Fair Diagnostics Vital Signs (24Hr): Vital Signs - 24 hr 09/03/21 17:47 09/04/21 08:40 09/04/21 09:20 Temperature 97.2 F 97.4 F Pulse Rate 100 87 87 Respiratory Rate 18 Blood Pressure 141/82 H 113/58 L 113/58 L Pulse Oximetry 99 98 Body Mass Index 30.7 Labs Results: 09/01/21 11:09 Labs: Laboratory Results - last 48 hr 09/04/21 09/04/21 07:44 07:44 Total Bilirubin < 0.2 Direct Bilirubin < 0.2 AST 7 ALT 7 Alkaline Phosphatase 81 D Ammonia 41 Total Protein 5.9 L Albumin 3.4 L Valproic Acid 43.6 L EKG EKG: other (needs updating) Medications Medications Current Medications Al Hydroxide/Mg Hydroxide (Magnesium Hydrox/Alum Hydrox 30 Ml Oral.Susp) 30 ml PO Q6H PRN PRN Reason: Heartburn/Nausea Albuterol Sulfate (Albuterol Sulfate 90 Mcg 8 Gm Inhaler) 2 puff INHALE Q4H PRN PRN Reason: Shortness Of Breath Amlodipine Besylate (Amlodipine Besylate 5 Mg Tablet) 5 mg PO DAILY [facility]; Protocol Last Admin: 09/04/21 08:40 Dose: 5 mg Documented by: Baclofen (Baclofen 10 Mg Tablet) 10 mg PO TID [facility] Last Admin: 09/04/21 08:40 Dose: 10 mg Documented by: Capsaicin (Capsaicin 0.025% Cream 60 Gm Tube) 1 appl TOPICAL TID PRN; Protocol PRN Reason: muscle/joint pain Last Admin: 09/03/21 17:14 Dose: 1 appl Documented by: Divalproex Sodium (Divalproex Sodium 500 Mg Tablet.) 500 mg PO BID [facility] Last Admin: 09/04/21 08:41 Dose: 500 mg Documented by: Gabapentin (Gabapentin 400 Mg Capsule) 800 mg PO TID [facility] Last Admin: 09/04/21 08:40 Dose: 800 mg Documented by: Hydroxyzine HCl (Hydroxyzine Hcl 25 Mg Tablet) 25 mg PO BEDTIME PRN PRN Reason: Anxiety Last Admin: 09/03/21 18:51 Dose: 25 mg Documented by: Hydroxyzine HCl (Hydroxyzine Hcl 50 Mg Tablet) 50 mg PO TID PRN PRN Reason: Anxiety Last Admin: 09/04/21 09:00 Dose: 50 mg Documented by: Magnesium Hydroxide (Milk Of Magnesia 30 Ml Oral.Susp) 30 ml PO DAILY PRN PRN Reason: Constipation Melatonin (Melatonin 3 Mg Tablet) 6 mg PO BEDTIME [facility] Last Admin: 09/03/21 19:49 Dose: 6 mg Documented by: Nicotine Polacrilex (Nicotine Polacrilex 2 Mg Gum) 2 mg BUCCAL Q2H PRN PRN Reason: Nicotine Cravings Last Admin: 09/04/21 09:00 Dose: 2 mg Documented by: Omeprazole (Omeprazole 40 Mg Capsule.) 40 mg PO DAILY [facility] Last Admin: 09/04/21 08:40 Dose: 40 mg Documented by: Ondansetron HCl (Ondansetron Odt 4 Mg Tab.Rapdis) 4 mg TRANSLINGU Q4H PRN PRN Reason: Nausea Last Admin: 09/04/21 09:00 Dose: 4 mg Documented by: Quetiapine Fumarate (Quetiapine Fumarate 25 Mg Tablet) 75 mg PO TID PRN PRN Reason: Anxiety Last Admin: 09/04/21 09:00 Dose: 75 mg Documented by: Quetiapine Fumarate (Quetiapine Fumarate 200 Mg Tablet) 200 mg PO BEDTIME [facility] Last Admin: 09/03/21 19:49 Dose: 200 mg inc to 300mg tonight though pt requested inc trazodone is already max and seroquel more likely to help mood swings than inc trazodone would Documented by: Trazodone HCl (Trazodone Hcl 100 Mg Tablet) 300 mg PO BEDTIME [facility] Last Admin: 09/03/21 19:48 Dose: 300 mg Documented by: Allergies Allergies Allergy/AdvReac Type Severity Reaction Status Date / Time Iodinated Contrast Media Allergy Severe ANAPHYLAXIS Verified 06/13/21 20:16 [CONTRAST, IV] ibuprofen [From Motrin] Allergy Intermediate SWELLING Verified 06/13/21 20:16 morphine [MORPHINE] Allergy Intermediate RASH Verified 06/13/21 20:16 acetaminophen [From TYLENOL] Allergy Mild HIVES Verified 06/13/21 20:16 bee pollen [Bee Stings] Allergy Mild UNKNOWN Verified 06/13/21 20:16 coconut Allergy Mild HIVES/SWELL Verified 06/13/21 20:16 ING latex [Latex] Allergy Mild HIVES Verified 06/13/21 20:16 NSAIDS (Non-Steroidal Allergy Mild HIVES Verified 06/13/21 20:16 Anti-Inflamma [NSAIDS (NON-STEROIDAL ANTI-INFLAMMA] aspirin [ASA] Allergy Unknown HIVES Verified 06/13/21 20:16 tramadol [TRAMADOL] Allergy Unknown UNKNOWN Verified 06/13/21 20:16 turkey Allergy Unknown UNKNOWN Verified 06/13/21 20:16 lidocaine Allergy Rash Verified 06/13/21 20:16 Peppers, Green Allergy Shortness Verified 06/28/21 00:31 of Breath Peppers, Jalapeno Allergy Shortness Verified 06/28/21 00:31 of Breath Peppers, Red Allergy Shortness Verified 06/28/21 00:31 of Breath Peppers, Yellow Allergy Shortness Verified 06/28/21 00:31 of Breath From Vicodin Allergy Mild RASH Uncoded 06/13/21 20:16 Assessment & Plan Assessment & Plan (1) MDD (major depressive disorder), recurrent episode, severe: Status: Acute Code(s): F33.2 - Major depressive disorder, recurrent severe without psychotic features Assessment and Plan: reports mood swings, will inc hs seroquel to address need to check current ekg last one 06/2021 (2) Personality disorder in adult: Status: Acute Code(s): F60.9 - Personality disorder, unspecified Assessment and Plan: mileu therapy (3) Cocaine abuse: Status: Acute Code(s): F14.10 - Cocaine abuse, uncomplicated Assessment and Plan: fatigued s/p cocainue use (4) Multiple sclerosis: Status: Acute Code(s): G35 - Multiple sclerosis Assessment and Plan: Ms. Dumont is a 46 year-old woman with hx of cocaine use, BPD, MDD self presented to [facility] ED reporting increase depressed mood, SI, HI towards aunt. Utox not completed at [facility] but pt does report using cocaine few days ago. She is not a reliable historian but is well known to this unit through previous admission with similar presentation. We discussed risks, benefits and alternative treatment options. Pt agrees to continue depakote and seroquel. last night, Patient wrapped her jeans around her having been triggered emotions; pt reports emotions have passed and that she's safe; hx of non-lethal gestures Continue current medication regimen PLAN INCREASED TO q5min checks Admit to M5. CV, Monitor safety. Add capsaicin for arthritic/muscle pain Continue Depakote LABS ORDERED FOR 09/04 Continue seroquel plus p.r.n. Seroquel Aftercare planning Milieu therapy. 09/04/21 inc hs seroquel - to 300mg I spent minutes with the patient and/or on the patient floor today, greater than?50% of which was spent counseling/coordinating care. Patient educated on: medication risk/benefits and therapeutic strategies Informed Consent: further education needed Reason for contiued inpatient stay Substantial Risk for: harm to self, harm to others, rapid decompensation and med/psych decompensation
[2021-09-04] MEDS: Melatonin 3 MG TABLET 6 MG PO (20:35)
[2021-09-04] MEDS: traZODone HCL 100 MG TABLET 300 MG PO (20:35)
[2021-09-04] MEDS: QUEtiapine Fumarate 300 MG TABLET PO (20:35)
[2021-09-04 21:50] VITALS: BP 110/68; PULSE 115; TEMP 37.2
[2021-09-04] MEDS: Capsaicin 0.025% Cream 60 GM TUBE 1 APPL TOPICAL (21:53)
[2021-09-05 06:00] VITALS: BP 136/73; PULSE 94; RESP 18; TEMP 36.3; O2SAT 98
[2021-09-05] MEDS: Gabapentin 400 MG CAPSULE 800 MG PO ×3 (08:56→20:38)
[2021-09-05 08:57] VITALS: BP 130/78; PULSE 88
[2021-09-05] MEDS: Divalproex Sodium 500 MG TABLET.DR PO ×2 (08:57→20:36)
[2021-09-05] MEDS: Omeprazole 40 MG CAPSULE.DR PO (08:57)
[2021-09-05] MEDS: Baclofen 10 MG TABLET PO ×3 (08:57→20:37)
[2021-09-05] MEDS: amLODIPine Besylate 5 MG TABLET PO (08:57)
--- NOTE | 2021-09-05 11:00 | HO.PSYCHPN ---
Subjective Subjective Date of Service: 09/05/21 Reason For Visit: Unspecified depressive disorder, personality disor Subjective Notes: Conditional Voluntary Healthcare Proxy: No Guardianship: No Medical Problems Affecting Mental Status: No Interim History: Patient continues to co dep/anxiety 06/18 co reviewed medications with pt - agreed to inc prn seroquel - pt already on depakote, gabapentin wanted pt to get ekg but seems to have refused Medication Compliance: Yes Side effects from medications: No Attending Groups: Intermittent Review of Systems Acute medical concerns: No Medical Review of Systems: unchanged Mental Status Exam Mental Status Exam Narrative: Pt showered yesterday- no change in presentation- dressed in naima and headdress Patient Appearance: Appropriate Patient Orientation: Person, Place, Time and Situation Level of Consciousness: Awake Patient Behavior: Appropriate and Passive Mood Description: Appropriate and Blunted Affect Description: Calm Patient Cognition Impaired: No Ability to Follow Directions: Fair Speech Pattern: Clear Hallucinations: Auditory (not clear about what they are saying) Delusions: Not Present Thought Process: Intact and Goal Oriented Thought Content: positive for Intact Depressive Symptoms: Muscle Pain (body pains 5/10 - which is better for patient) Judgement: Fair Diagnostics Vital Signs (24Hr): Vital Signs - 24 hr 09/04/21 21:50 09/05/21 06:00 09/05/21 08:57 Temperature 98.9 F 97.4 F Pulse Rate 115 H 94 88 Respiratory Rate 18 Blood Pressure 110/68 136/73 130/78 Pulse Oximetry 98 Body Mass Index 30.7 Labs Results: 09/01/21 11:09 Labs: Laboratory Results - last 48 hr 09/04/21 09/04/21 07:44 07:44 Total Bilirubin < 0.2 Direct Bilirubin < 0.2 AST 7 ALT 7 Alkaline Phosphatase 81 D Ammonia 41 Total Protein 5.9 L Albumin 3.4 L Valproic Acid 43.6 L EKG EKG: other (suggested updated ekg given inc seroquel - but pt refused- ) Medications Medications Current Medications Al Hydroxide/Mg Hydroxide (Magnesium Hydrox/Alum Hydrox 30 Ml Oral.Susp) 30 ml PO Q6H PRN PRN Reason: Heartburn/Nausea Albuterol Sulfate (Albuterol Sulfate 90 Mcg 8 Gm Inhaler) 2 puff INHALE Q4H PRN PRN Reason: Shortness Of Breath Amlodipine Besylate (Amlodipine Besylate 5 Mg Tablet) 5 mg PO DAILY [facility]; Protocol Last Admin: 09/05/21 08:57 Dose: 5 mg Documented by: Baclofen (Baclofen 10 Mg Tablet) 10 mg PO TID [facility] Last Admin: 09/05/21 08:57 Dose: 10 mg Documented by: Capsaicin (Capsaicin 0.025% Cream 60 Gm Tube) 1 appl TOPICAL TID PRN; Protocol PRN Reason: muscle/joint pain Last Admin: 09/04/21 21:53 Dose: 1 appl Documented by: Divalproex Sodium (Divalproex Sodium 500 Mg Tablet.) 500 mg PO BID [facility] Last Admin: 09/05/21 08:57 Dose: 500 mg Documented by: Gabapentin (Gabapentin 400 Mg Capsule) 800 mg PO TID [facility] Last Admin: 09/05/21 08:56 Dose: 800 mg Documented by: Hydroxyzine HCl (Hydroxyzine Hcl 25 Mg Tablet) 25 mg PO BEDTIME PRN PRN Reason: Anxiety Last Admin: 09/03/21 18:51 Dose: 25 mg Documented by: Hydroxyzine HCl (Hydroxyzine Hcl 50 Mg Tablet) 50 mg PO TID PRN PRN Reason: Anxiety Last Admin: 09/04/21 21:25 Dose: 50 mg Documented by: Magnesium Hydroxide (Milk Of Magnesia 30 Ml Oral.Susp) 30 ml PO DAILY PRN PRN Reason: Constipation Melatonin (Melatonin 3 Mg Tablet) 6 mg PO BEDTIME [facility] Last Admin: 09/04/21 20:35 Dose: 6 mg Documented by: Nicotine Polacrilex (Nicotine Polacrilex 2 Mg Gum) 2 mg BUCCAL Q2H PRN PRN Reason: Nicotine Cravings Last Admin: 09/04/21 21:25 Dose: 2 mg Documented by: Omeprazole (Omeprazole 40 Mg Capsule.) 40 mg PO DAILY [facility] Last Admin: 09/05/21 08:57 Dose: 40 mg Documented by: Ondansetron HCl (Ondansetron Odt 4 Mg Tab.Rapdis) 4 mg TRANSLINGU Q4H PRN PRN Reason: Nausea Last Admin: 09/04/21 21:28 Dose: 4 mg Documented by: Quetiapine Fumarate (Quetiapine Fumarate 25 Mg Tablet) 75 mg PO TID PRN PRN Reason: Anxiety Last Admin: 09/04/21 17:00 Dose: 75 mg Documented by: Quetiapine Fumarate (Quetiapine Fumarate 300 Mg Tablet) 300 mg PO BEDTIME [facility] Last Admin: 09/04/21 20:35 Dose: 300 mg Documented by: Trazodone HCl (Trazodone Hcl 100 Mg Tablet) 300 mg PO BEDTIME [facility] Last Admin: 09/04/21 20:35 Dose: 300 mg Documented by: Allergies Allergies Allergy/AdvReac Type Severity Reaction Status Date / Time Iodinated Contrast Media Allergy Severe ANAPHYLAXIS Verified 06/13/21 20:16 [CONTRAST, IV] ibuprofen [From Motrin] Allergy Intermediate SWELLING Verified 06/13/21 20:16 morphine [MORPHINE] Allergy Intermediate RASH Verified 06/13/21 20:16 acetaminophen [From TYLENOL] Allergy Mild HIVES Verified 06/13/21 20:16 bee pollen [Bee Stings] Allergy Mild UNKNOWN Verified 06/13/21 20:16 coconut Allergy Mild HIVES/SWELL Verified 06/13/21 20:16 ING latex [Latex] Allergy Mild HIVES Verified 06/13/21 20:16 NSAIDS (Non-Steroidal Allergy Mild HIVES Verified 06/13/21 20:16 Anti-Inflamma [NSAIDS (NON-STEROIDAL ANTI-INFLAMMA] aspirin [ASA] Allergy Unknown HIVES Verified 06/13/21 20:16 tramadol [TRAMADOL] Allergy Unknown UNKNOWN Verified 06/13/21 20:16 turkey Allergy Unknown UNKNOWN Verified 06/13/21 20:16 lidocaine Allergy Rash Verified 06/13/21 20:16 Peppers, Green Allergy Shortness Verified 06/28/21 00:31 of Breath Peppers, Jalapeno Allergy Shortness Verified 06/28/21 00:31 of Breath Peppers, Red Allergy Shortness Verified 06/28/21 00:31 of Breath Peppers, Yellow Allergy Shortness Verified 06/28/21 00:31 of Breath From Vicodin Allergy Mild RASH Uncoded 06/13/21 20:16 Assessment & Plan Assessment & Plan (1) MDD (major depressive disorder), recurrent episode, severe: Status: Acute Code(s): F33.2 - Major depressive disorder, recurrent severe without psychotic features Assessment and Plan: ongoing dep/anxiety and reporting AH- does not appear to be responding to internal stimuli discussed meds with pt - who is annoyed I increased her hs seroquel (though she was co sleep problems yesterday) feels she needs inc in day for anxiety/depression (2) Personality disorder in adult: Status: Acute Code(s): F60.9 - Personality disorder, unspecified Assessment and Plan: mileu therapy limited coping (3) Cocaine abuse: Status: Acute Code(s): F14.10 - Cocaine abuse, uncomplicated Assessment and Plan: fatigued s/p cocainue use (4) Multiple sclerosis: Status: Acute Code(s): G35 - Multiple sclerosis Assessment and Plan: Ms. Dumont is a 46 year-old woman with hx of cocaine use, BPD, MDD self presented to [facility] ED reporting increase depressed mood, SI, HI towards aunt. Utox not completed at [facility] but pt does report using cocaine few days ago. She is not a reliable historian but is well known to this unit through previous admission with similar presentation. We discussed risks, benefits and alternative treatment options. Pt agrees to continue depakote and seroquel. last night, Patient wrapped her jeans around her having been triggered emotions; pt reports emotions have passed and that she's safe; hx of non-lethal gestures Continue current medication regimen PLAN on 15 min checks Add capsaicin for arthritic/muscle pain Continue Depakote increased seroquel plus p.r.n. Seroquel Aftercare planning Milieu therapy. 09/04/21 inc hs seroquel - to 300mg 09/05/21- also increased prn seroquel for day watch for sedation I spent minutes with the patient and/or on the patient floor today, greater than?50% of which was spent counseling/coordinating care. Patient educated on: medication risk/benefits and other (ekg) Informed Consent: further education needed Reason for contiued inpatient stay Substantial Risk for: harm to self and rapid decompensation
[2021-09-05] MEDS: hydrOXYzine HCL 50 MG TABLET PO ×2 (13:04→21:57)
[2021-09-05] MEDS: QUEtiapine Fumarate 100 MG TABLET PO (13:04)
[2021-09-05] MEDS: Nicotine Polacrilex 2 MG GUM BUCCAL ×3 (14:22→19:54)
[2021-09-05 16:50] VITALS: BP 122/75; PULSE 104; TEMP 36.7
[2021-09-05] MEDS: traZODone HCL 100 MG TABLET 300 MG PO (20:36)
[2021-09-05] MEDS: QUEtiapine Fumarate 300 MG TABLET PO (20:37)
[2021-09-05] MEDS: Melatonin 3 MG TABLET 6 MG PO (20:37)
[2021-09-06] MEDS: Gabapentin 400 MG CAPSULE 800 MG PO ×3 (09:52→20:16)
[2021-09-06 09:53] VITALS: BP 129/81; PULSE 112
[2021-09-06] MEDS: Baclofen 10 MG TABLET PO ×3 (09:53→20:16)
[2021-09-06] MEDS: Divalproex Sodium 500 MG TABLET.DR PO ×2 (09:53→20:16)
[2021-09-06] MEDS: Omeprazole 40 MG CAPSULE.DR PO (09:53)
[2021-09-06] MEDS: amLODIPine Besylate 5 MG TABLET PO (09:53)
[2021-09-06] MEDS: Nicotine Polacrilex 2 MG GUM BUCCAL ×5 (10:01→20:16)
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
[2021-09-06 17:50] VITALS: BP 135/85; PULSE 103; TEMP 36.7; O2SAT 99
[2021-09-06] MEDS: hydrOXYzine HCL 50 MG TABLET PO (18:35)
[2021-09-06] MEDS: traZODone HCL 100 MG TABLET 300 MG PO (20:16)
[2021-09-06] MEDS: Melatonin 3 MG TABLET 6 MG PO (20:16)
[2021-09-06] MEDS: QUEtiapine Fumarate 300 MG TABLET PO (20:16)
[2021-09-06] MEDS: hydrOXYzine HCL 25 MG TABLET PO (22:31)
[2021-09-07 06:00] VITALS: BP 124/76; PULSE 79; RESP 18; TEMP 36.4; O2SAT 97
[2021-09-07] MEDS: Gabapentin 400 MG CAPSULE 800 MG PO ×3 (09:33→20:11)
[2021-09-07 09:34] VITALS: BP 124/76; PULSE 79
[2021-09-07] MEDS: Baclofen 10 MG TABLET PO ×3 (09:34→20:11)
[2021-09-07] MEDS: amLODIPine Besylate 5 MG TABLET PO (09:34)
[2021-09-07] MEDS: Omeprazole 40 MG CAPSULE.DR PO (09:35)
[2021-09-07] MEDS: Divalproex Sodium 500 MG TABLET.DR PO ×2 (09:35→20:11)
[2021-09-07] MEDS: Mineral Oil/Petrolatum,White 106 GM Tube 1 APPL TOPICAL ×2 (11:29→20:40)
[2021-09-07] MEDS: Nicotine Polacrilex 2 MG GUM BUCCAL ×2 (12:14→16:10)
[2021-09-07] MEDS: hydrOXYzine HCL 50 MG TABLET PO ×2 (13:57→19:34)
[2021-09-07] MEDS: QUEtiapine Fumarate 100 MG TABLET PO ×2 (13:57→19:34)
--- NOTE | 2021-09-07 16:44 | HO.PSYCHPN ---
Subjective Subjective Date of Service: 09/07/21 Reason For Visit: Unspecified depressive disorder, personality disor Interim History: Patient reports good mood. She denies any SI at all or AVH and says she is doing great. Patient reports she sleeping well, eating well and feels ready for discharge. Her plan is to get her medications from her local pharmacy as quickly as possible and avoid seeing her aunt. From there she will go to her location in [place]. Patient would like the Seroquel increased dose to stay the same. She would also like nicotine gum on discharge since it helps her with smoking cessation. Mental Status Exam Mental Status Exam Narrative: Pt is alert and oriented; behavior is cooperative, friendly and calm; patient is not in distress; dressed in casual attire with hair wrapped in scarf/rag and with adequate hygiene; mood is described as great and affect congruent; eye contact appropriate; Speech is normal rate, volume and prosody and not pressured; no psychomotor agitation/retardation present; thought process is organized and goal directed. Thought content is on tx and discharge; otherwise pertinent to relevant topics and without any delusional content, paranoid ideations or grandiosity; denies any SI/HI. Denies any AVH.? Patients insight and judgment is intact. Diagnostics Vital Signs (24Hr): Vital Signs - 24 hr 09/06/21 17:50 09/07/21 06:00 09/07/21 09:34 Temperature 98.0 F 97.6 F Pulse Rate 103 H 79 79 Respiratory Rate 18 Blood Pressure 135/85 124/76 124/76 Pulse Oximetry 99 97 Body Mass Index 30.7 Labs Results: 09/01/21 11:09 Medications Medications Current Medications Al Hydroxide/Mg Hydroxide (Magnesium Hydrox/Alum Hydrox 30 Ml Oral.Susp) 30 ml PO Q6H PRN PRN Reason: Heartburn/Nausea Albuterol Sulfate (Albuterol Sulfate 90 Mcg 8 Gm Inhaler) 2 puff INHALE Q4H PRN PRN Reason: Shortness Of Breath Amlodipine Besylate (Amlodipine Besylate 5 Mg Tablet) 5 mg PO DAILY [facility]; Protocol Last Admin: 09/07/21 09:34 Dose: 5 mg Documented by: Baclofen (Baclofen 10 Mg Tablet) 10 mg PO TID [facility] Last Admin: 09/07/21 14:30 Dose: 10 mg Documented by: Divalproex Sodium (Divalproex Sodium 500 Mg Tablet.) 500 mg PO BID [facility] Last Admin: 09/07/21 09:35 Dose: 500 mg Documented by: Gabapentin (Gabapentin 400 Mg Capsule) 800 mg PO TID [facility] Last Admin: 09/07/21 14:30 Dose: 800 mg Documented by: Hydroxyzine HCl (Hydroxyzine Hcl 25 Mg Tablet) 25 mg PO BEDTIME PRN PRN Reason: Anxiety Last Admin: 09/06/21 22:31 Dose: 25 mg Documented by: Hydroxyzine HCl (Hydroxyzine Hcl 50 Mg Tablet) 50 mg PO TID PRN PRN Reason: Anxiety Last Admin: 09/07/21 13:57 Dose: 50 mg Documented by: Magnesium Hydroxide (Milk Of Magnesia 30 Ml Oral.Susp) 30 ml PO DAILY PRN PRN Reason: Constipation Melatonin (Melatonin 3 Mg Tablet) 6 mg PO BEDTIME [facility] Last Admin: 09/06/21 20:16 Dose: 6 mg Documented by: Multi-Ingred Cream/Lotion/Oil/Oint (Mineral Oil/Petrolatum,White 106 Gm Tube) 1 appl TOPICAL TID [facility] Last Admin: 09/07/21 11:29 Dose: 1 appl Documented by: Nicotine Polacrilex (Nicotine Polacrilex 2 Mg Gum) 2 mg BUCCAL Q2H PRN PRN Reason: Nicotine Cravings Last Admin: 09/07/21 16:10 Dose: 2 mg Documented by: Omeprazole (Omeprazole 40 Mg Capsule.) 40 mg PO DAILY [facility] Last Admin: 09/07/21 09:35 Dose: 40 mg Documented by: Ondansetron HCl (Ondansetron Odt 4 Mg Tab.Rapdis) 4 mg TRANSLINGU Q4H PRN PRN Reason: Nausea Last Admin: 09/04/21 21:28 Dose: 4 mg Documented by: Quetiapine Fumarate (Quetiapine Fumarate 300 Mg Tablet) 300 mg PO BEDTIME [facility] Last Admin: 09/06/21 20:16 Dose: 300 mg Documented by: Quetiapine Fumarate (Quetiapine Fumarate 100 Mg Tablet) 100 mg PO TID PRN PRN Reason: Anxiety Last Admin: 09/07/21 13:57 Dose: 100 mg Documented by: Trazodone HCl (Trazodone Hcl 100 Mg Tablet) 300 mg PO BEDTIME [facility] Last Admin: 09/06/21 20:16 Dose: 300 mg Documented by: Trolamine Salicylate/Aloe Vera (Trolamine Salicylate 10%/Aloe Cream 35.4 Gm) 1 appl TOPICAL TID PRN PRN Reason: MSK pain Last Admin: 09/07/21 11:29 Dose: 1 appl Documented by: Allergies Allergies Allergy/AdvReac Type Severity Reaction Status Date / Time Iodinated Contrast Media Allergy Severe ANAPHYLAXIS Verified 06/13/21 20:16 [CONTRAST, IV] ibuprofen [From Motrin] Allergy Intermediate SWELLING Verified 06/13/21 20:16 morphine [MORPHINE] Allergy Intermediate RASH Verified 06/13/21 20:16 acetaminophen [From TYLENOL] Allergy Mild HIVES Verified 06/13/21 20:16 bee pollen [Bee Stings] Allergy Mild UNKNOWN Verified 06/13/21 20:16 coconut Allergy Mild HIVES/SWELL Verified 06/13/21 20:16 ING latex [Latex] Allergy Mild HIVES Verified 06/13/21 20:16 NSAIDS (Non-Steroidal Allergy Mild HIVES Verified 06/13/21 20:16 Anti-Inflamma [NSAIDS (NON-STEROIDAL ANTI-INFLAMMA] aspirin [ASA] Allergy Unknown HIVES Verified 06/13/21 20:16 tramadol [TRAMADOL] Allergy Unknown UNKNOWN Verified 06/13/21 20:16 turkey Allergy Unknown UNKNOWN Verified 06/13/21 20:16 lidocaine Allergy Rash Verified 06/13/21 20:16 Peppers, Green Allergy Shortness Verified 06/28/21 00:31 of Breath Peppers, Jalapeno Allergy Shortness Verified 06/28/21 00:31 of Breath Peppers, Red Allergy Shortness Verified 06/28/21 00:31 of Breath Peppers, Yellow Allergy Shortness Verified 06/28/21 00:31 of Breath From Vicodin Allergy Mild RASH Uncoded 06/13/21 20:16 Assessment & Plan Assessment & Plan (1) MDD (major depressive disorder), recurrent episode, severe: Status: Acute Code(s): F33.2 - Major depressive disorder, recurrent severe without psychotic features (2) Personality disorder in adult: Status: Acute Code(s): F60.9 - Personality disorder, unspecified Assessment and Plan: mileu therapy limited coping (3) Cocaine abuse: Status: Acute Code(s): F14.10 - Cocaine abuse, uncomplicated Assessment and Plan: fatigued s/p cocainue use (4) Multiple sclerosis: Status: Acute Code(s): G35 - Multiple sclerosis Assessment and Plan: Ms. Dumont is a 46 year-old woman with hx of cocaine use, BPD, MDD self presented to [facility] ED reporting increase depressed mood, SI, HI towards aunt. Utox not completed at [facility] but pt does report using cocaine few days ago. She is not a reliable historian but is well known to this unit through previous admission with similar presentation. We discussed risks, benefits and alternative treatment options. Pt agrees to continue depakote and seroquel. Early in admission, Patient wrapped her jeans around her having been triggered emotions; pt reports emotions have passed and that she's safe; hx of non-lethal gestures Continue current medication regimen Patient steadily increasing; depression resolved; SI resolved; auditory hallucinations much less and tolerable; continue current regimen as patient is approaching discharge Patient remains stable, depression and SI fully resolved; AH fully resolved. Patient reports being in a good mood and is looking for to discharge. She is not in imminent risk for harm to self or others and request for discharge honored. PLAN on 15 min checks DC capsaicin Aspercreme; Pt explains she is not allergic to ASA via topical cream but only to PO aspirin which causes mild hives, but nothing else. Continue Depakote increased seroquel over weekend continune p.r.n. Seroquel (patient likes this dose and feels it is helpful) Aftercare planning Milieu therapy. I spent minutes with the patient and/or on the patient floor today, greater than?50% of which was spent counseling/coordinating care. Reason for contiued inpatient stay Substantial Risk for: stable for discharge
--- NOTE | 2021-09-07 17:00 | P.DS_ITS ---
DS: Providers Provider Date of Service: 09/08/21 Date of admission: 08/31/21 21:19 Date of discharge: 09/08/21 Primary care physician: Unknown Physician Admitting clinician: Mariella Do Attending physician on discharge: Robert Rosales DS: Diagnosis Discharge Diagnosis (1) MDD (major depressive disorder), recurrent episode, severe: Status: Chronic (2) Personality disorder in adult: Status: Chronic (3) Cocaine abuse: Status: Chronic (4) Multiple sclerosis: Status: Chronic DS: Medications Discharge Medications Home Medications: Previous Rx's Medication Instructions Recorded phenazopyridine 100 mg tablet 100 mg PO TID PRN #45 tab 06/29/21 albuterol sulfate 90 mcg/actuation 2 puff INHALATION Q4H PRN 30 Days 09/07/21 aerosol inhaler (Ventolin HFA) #6.7 g amlodipine 5 mg tablet 5 mg PO DAILY 30 Days #30 tab 09/07/21 baclofen 10 mg tablet 10 mg PO TID 30 Days #90 tab 09/07/21 divalproex 500 mg tablet,delayed 500 mg PO BID 30 Days #60 tab 09/07/21 release gabapentin 800 mg tablet 800 mg PO TID 30 Days #90 tab 09/07/21 hydroxyzine HCl 50 mg tablet 50 mg PO TID PRN 30 Days #90 tab 09/07/21 melatonin 3 mg tablet 6 mg PO BEDTIME 30 Days #60 tab 09/07/21 nicotine (polacrilex) 2 mg gum 2 mg BUCCAL Q2H PRN 30 Days #50 ea 09/07/21 omeprazole 40 mg capsule,delayed 40 mg PO DAILY 30 Days #30 cap 09/07/21 release quetiapine 100 mg tablet 100 mg PO TID PRN 30 Days #90 tab 09/07/21 quetiapine 300 mg tablet 300 mg PO BEDTIME 30 Days #30 tab 09/07/21 trazodone 100 mg tablet 300 mg PO BEDTIME 30 Days #90 tab 09/07/21 trolamine salicylate-aloe vera 10 1 appl TOPICAL BID PRN 30 Days 09/07/21 % topical cream (Aspercreme with #35.4 g Aloe) Mental Status Exam Mental Status Exam Narrative: Pt is alert and oriented; behavior is cooperative, friendly and calm; patient is not in distress; dressed in casual attire with hair wrapped in scarf/rag and with adequate hygiene; mood is described as good and affect congruent; eye contact appropriate; Speech is normal rate, volume and prosody and not pressured; no psychomotor agitation/retardation present; thought process is organized and goal directed. Thought content is on tx and discharge; otherwise pertinent to relevant topics and without any delusional content, paranoid ideations or grandiosity; denies any SI/HI. Denies any AVH.? Patients insight and judgment is intact. Data Data Completed and Pending Completed studies during hospitalization [Text1]: 09/01/21 09/04/21 09/04/21 11:09 07:44 07:44 Sodium 140 Potassium 4.0 Chloride 109 H Carbon Dioxide 23 Anion Gap 12 BUN 8 L Creatinine 0.82 Estim Creat Clear Calc 98.2 Estimated GFR > 60 Random Glucose 105 Calcium 9.1 D Total Bilirubin < 0.2 < 0.2 Direct Bilirubin < 0.2 AST 9 7 ALT 8 7 Alkaline Phosphatase 60 81 D Ammonia 41 Total Protein 6.4 L 5.9 L Albumin 3.8 3.4 L Valproic Acid 43.6 L DS: Summary Hospital Course Hospital Course: Ms. Dumont is a 46 year-old woman with hx of cocaine use, BPD, MDD self presented to [facility] ED reporting increase depressed mood, SI, HI towards aunt. Utox not completed at [facility] but pt does report using cocaine few days ago. She is not a reliable historian but is well known to this unit through previous admission with similar presentation. We discussed risks, benefits and alternative treatment options. Pt agrees to continue depakote and seroquel. Patient signed a CV. Her home medications were continued. Early in admission, Patient wrapped her jeans around her neck, saying she was triggered by emotions, however this was not witnessed but self-reported. Patient reported that these emotions had past, that her mood was improving and going forward, pt remained in good behavioral and impulse control (pt has hx of non-lethal gestures). For the 1st day or so she still reported intermittent SI but said it was passive and she had no intent or plans, rather she was future oriented wanting treatment. Patient also reported mild AH which quickly resolved. During this admission her Seroquel dose was increased to good effect. She was also given Aspercreme which she reported was helpful and that as a topical, aspirin was well tolerated (that only p.o. aspirin caused hives which she said were mild). Patient's depression abated and SI/AVH remained resolved. Her mood was good and her affect bright. Patient continued to demonstrate good behavioral impulse control on the unit, was engaged in treatment, going to groups and appropriate with peers and staff. Patient asked for discharge saying she felt ready to go. Her plan was to go to her uncle's house and then go to a penitentiary. Given patient's history she remains vulnerable to relapse was substance abuse or to again engage in risky behaviors however these issues are chronic which patient is working on. Patient is eating and sleeping well, feels her medications are effective and even reported that she is physically pain-free. Patient is not in imminent risk for harm to self or others and her request for discharge honored. increased seroquel dose \ Time spent discussing smoking cessation with patient: 3 to 10 minutes Status at Discharge Functional status at discharge: uses cane/walker Overall status at discharge: patient is back to baseline Time Spent with Patient Time attestation: Total time spent providing and/or coordinating discharge services: Time spent: Greater than 30 minutes Discharge Plan Discharge Patient Disposition: Senior Living Discharge Diagnosis: MDD, recurrent, severe with psychotic features, in full remission Referrals: Sherif Victor ([facility] of [facility]) [Other] - 1 Week (Please contact Sherif Victor upon discharge if you are interested in [facility] services) [facility] [Other] - 1 Week Physician,Unknown J [Primary Care Provider] - 1 Week Discharge Medications: New quetiapine 300 mg Tablet 300 mg PO BEDTIME 30 Days Qty: 30 RF: 0 quetiapine 100 mg Tablet 100 mg PO TID PRN (Reason: Anxiety) 30 Days Qty: 90 RF: 0 Aspercreme with Aloe 10 % Cream 1 appl topical BID PRN (Reason: MSK pain) 30 Days Qty: 35.4 RF: 0 Continued phenazopyridine 100 mg Tablet 100 mg PO TID PRN (Reason: pain) Qty: 45 RF: 0 nicotine (polacrilex) 2 mg Gum 2 mg buccal Q2H PRN (Reason: Nicotine Cravings) 30 Days Qty: 50 RF: 0 hydroxyzine HCl 50 mg Tablet 50 mg PO TID PRN (Reason: Anxiety) 30 Days Qty: 90 RF: 0 melatonin 3 mg Tablet 6 mg PO BEDTIME 30 Days Qty: 60 RF: 0 amlodipine 5 mg Tablet 5 mg PO DAILY 30 Days Qty: 30 RF: 0 divalproex 500 mg Tablet,Delayed Release (Dr/Ec) 500 mg PO BID 30 Days Qty: 60 RF: 0 omeprazole 40 mg Capsule,Delayed Release(Dr/Ec) 40 mg PO DAILY 30 Days Qty: 30 RF: 0 trazodone 100 mg Tablet 300 mg PO BEDTIME 30 Days Qty: 90 RF: 0 baclofen 10 mg Tablet 10 mg PO TID 30 Days Qty: 90 RF: 0 albuterol sulfate [Ventolin HFA] 90 mcg/actuation Hfa Aerosol Inhaler 2 puff inhalation Q4H PRN (Reason: Shortness Of Breath) 30 Days Qty: 6.7 RF: 0 Changed gabapentin 800 mg tablet 800 mg PO TID 30 Days Qty: 90 RF: 0 Discontinued quetiapine 25 mg Tablet 75 mg PO TID PRN (Reason: Anxiety) Qty: 135 RF: 1 quetiapine 200 mg Tablet 200 mg PO BEDTIME Qty: 30 RF: 0 Discharge Orders: Discharge Order (Routine); Ordered 09/08/21 Ordered By: Robert Rosales Diet: regular diet Activity on Discharge: As tolerated Stand Alone Forms: Patient Portal Discharge page Care Plan Goals: Maintain mood and safe behaviors Take medications as prescribed Continue to pursue sobriety Practice coping skills Continue with outpatient providers and reach out to them as needed Health Concerns: Mood stability and behaviors Sobriety MS Plan of Treatment: Follow up with your PCP, psychiatric provider and other outpatient providers regarding above concerns Take medications as prescribed Assessment: Risk assessment at time of discharge:? Patient was interviewed prior to discharge and found to be fully oriented and without any SI or HI. Patient has insight and demonstrates good judgment in terms of wanting to pursue treatment. Patient is not in imminent risk of harm to self or others and has a safety plan that includes presenting to the closest ER or calling 911 if feeling unsafe.? Patient has been observed closely by nursing and unit staff throughout admission. Discharge Date/Time: 09/08/21 13:40
[2021-09-07 18:00] VITALS: BP 125/73; PULSE 104; RESP 18; TEMP 37.1; O2SAT 99
[2021-09-07] MEDS: traZODone HCL 100 MG TABLET 300 MG PO (20:11)
[2021-09-07] MEDS: QUEtiapine Fumarate 300 MG TABLET PO (20:11)
[2021-09-07] MEDS: Melatonin 3 MG TABLET 6 MG PO (20:12)
[2021-09-08 08:55] VITALS: BP 123/86; PULSE 93
[2021-09-08] MEDS: amLODIPine Besylate 5 MG TABLET PO (08:55)
[2021-09-08] MEDS: Divalproex Sodium 500 MG TABLET.DR PO (08:55)
[2021-09-08] MEDS: Baclofen 10 MG TABLET PO (08:55)
[2021-09-08] MEDS: Gabapentin 400 MG CAPSULE 800 MG PO (08:55)
[2021-09-08] MEDS: Omeprazole 40 MG CAPSULE.DR PO (08:56)
[2021-09-08] MEDS: Nicotine Polacrilex 2 MG GUM BUCCAL (10:22)
[2021-09-08] MEDS: Naloxone HCl Nasal TAKE HOME 4 MG SPRAY NOSTRILALT (11:20)
[2021-09-08] MEDS: QUEtiapine Fumarate 100 MG TABLET PO (11:21)
[2021-09-08] MEDS: hydrOXYzine HCL 50 MG TABLET PO (11:21)
== END 2021-09-08 13:40 | disposition home or self-care (01) | DRG 885 ==
PROVIDERS: Social Worker; Admitting Provider Psychiatry & Neurology Psychiatry; Visit Provider Psychiatry & Neurology Psychiatry
DX: F33.2 Major depressive disorder, recurrent severe without psychotic features (principal); R45.851 Suicidal ideations; F14.10 Cocaine abuse, uncomplicated; F60.9 Personality disorder, unspecified; F17.210 Nicotine dependence, cigarettes, uncomplicated; Z71.6 Tobacco abuse counseling; R45.850 Homicidal ideations; I05.0 Rheumatic mitral stenosis; Z88.5 Allergy status to narcotic agent; Z88.6 Allergy status to analgesic agent; Z79.899 Other long term (current) drug therapy
CPT/HCPCS: 36415; 80053; 80076; 80164; 82140

== ENCOUNTER 2021-09-12 15:33 | Emergency (ER) | payer OTHER, SELFPAY ==
[2021-09-12 15:44] VITALS: BP 150/80; PULSE 96; O2SAT 98
[2021-09-12 16:05] VITALS: BP 148/94; PULSE 97; RESP 18; TEMP 36.6; O2SAT 99; BMI 35.9
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
--- NOTE | 2021-09-12 16:56 | ECG_ITS ---
Test Reason : MEDICAL CLEARANCE Blood Pressure : / mmHG Vent. Rate : 102 BPM Atrial Rate : 102 BPM P-R Int : 164 ms QRS Dur : 088 ms QT Int : 306 ms P-R-T Axes : 048 -06 021 degrees QTc Int : 398 ms Sinus tachycardia Possible Anterior infarct , age undetermined Abnormal ECG When compared with ECG of 23-JUN-2021 20:13, Nonspecific T wave abnormality now evident in Inferior leads Nonspecific T wave abnormality no longer evident in Anterior leads Nonspecific T wave abnormality, worse in Lateral leads QT has shortened Referred By: Melody Andrade Electronically Signed By:Ted Weiner
--- NOTE | 2021-09-12 18:54 | MHC.CARE ---
CARE team consult received. When medically cleared, pt will be referred to [facility] crisis for eval.
[2021-09-12 19:07] LABS: MANUAL DIFF FLAG NO
[2021-09-12 19:09] LABS: Basophils Percent Auto 0.5 % (0-2); Eosinophils Absolute Auto 0.1 X10*3/uL (0.0-0.4); Hematocrit 32.4 % (37.0-47.0); Hemoglobin 10.1 g/dl (12.0-16.0); Imm Gran Abs Auto 0.03 X10*3/uL (0.00-0.03); Imm Gran Pct Auto 0.5 % (0.0-0.4); Lymphocytes Absolute Auto 2.5 X10*3/uL (1.2-4.9); Lymphocytes Percent Auto 43.5 % (20-40); Mean Corpuscular HGB Conc 31.2 g/dl (31.0-35.0); Mean Corpuscular Volume 80.2 fL (80.0-98.0); Mean Platelet Volume 9.7 fL (9.4-12.3); Monocytes Absolute Auto 0.4 X10*3/uL (0.1-1.2); Monocytes Percent Auto 7.5 % (2-11); Neutrophils Absolute Auto 2.7 x10*3/uL (2.0-8.3); Platelet Count 278 X10*3/uL (160-400); Red Blood Count 4.04 X10*6/uL (4.20-5.50); Red Cell Distribution Width 18.6 % (11.0-16.0); White Blood Count 5.8 X10*3/uL (4.8-10.8)
[2021-09-12 19:31] LABS: Ethanol < 10 mg/dL
[2021-09-12 19:34] LABS: Acetaminophen LAB < 1 mcg/mL (<30); Alanine Aminotransferase 10 U/L (0-31); Alkaline Phosphatase 55 U/L (39-117); Anion Gap 11 (12-20); Aspartate Amino Transferase 11 U/L (5-31); Bilirubin Total 0.3 mg/dL (0.0-1.0); Blood Urea Nitrogen 9 mg/dL (9-16); Carbon Dioxide 24 mmol/L (22-29); Chloride 108 mmol/L (96-108); Estimated Glomerular Filt Rate > 60; Glucose Random 98 mg/dL (60-115); Magnesium 2.3 mg/dL (1.6-2.6); Phosphorus 3.3 mg/dL (2.7-4.5); Potassium 3.9 mmol/L (3.3-5.1); Salicylate < 5.0 mg/dL (15-30); Sodium 139 mmol/L (135-145)
[2021-09-12 20:34] LABS: Influenza A PCR NEGATIVE (Negative); Influenza B PCR NEGATIVE (Negative); Resp Syncy Virus RNA Qual PCR NEGATIVE (Negative); SARS COV2 PCR INHOUSE NEGATIVE (Negative)
--- NOTE | 2021-09-12 20:47 | PC.NURSE ---
med rec complete, provider to approve and sign off on meds. pt asking for something for anxiety.
--- NOTE | 2021-09-12 21:57 | PC.NURSE ---
poison control called for an update, all lab values and EKG results reported.
[2021-09-12 22:11] VITALS: BP 130/81; PULSE 110; RESP 20; O2SAT 99
[2021-09-12] MEDS: hydrOXYzine HCL 50 MG TABLET PO (22:32)
[2021-09-12] MEDS: Divalproex Sodium 500 MG TABLET.DR PO (22:33)
[2021-09-12] MEDS: Baclofen 10 MG TABLET PO (22:33)
[2021-09-12] MEDS: QUEtiapine Fumarate 300 MG TABLET PO (22:33)
[2021-09-12] MEDS: Melatonin 3 MG TABLET 6 MG PO (22:33)
[2021-09-12] MEDS: traZODone HCL 100 MG TABLET 300 MG PO (22:33)
[2021-09-12] MEDS: Gabapentin 400 MG CAPSULE 800 MG PO (22:33)
[2021-09-13 00:52] LABS: Acetaminophen LAB < 1 mcg/mL (<30); Salicylate < 5.0 mg/dL (15-30)
--- NOTE | 2021-09-13 06:16 | PC.NURSE ---
Patient slept through the night, no distress observed/reported, med compliant, behavior non concerning, N was unable to keep her engage in the evaluation, she was not cooperative, patient will be reevaluated by N possible discharge, pending urine sample, unsteady gait use walker to ambulate, will continue to monitor.
[2021-09-13 09:35] VITALS: BP 121/69; PULSE 79; RESP 17; TEMP 36.1; O2SAT 97
[2021-09-13 09:45] VITALS: BP 121/69; PULSE 79
[2021-09-13] MEDS: QUEtiapine Fumarate 100 MG TABLET PO ×2 (09:45→15:22)
[2021-09-13] MEDS: Baclofen 10 MG TABLET PO ×2 (09:45→15:22)
[2021-09-13] MEDS: Omeprazole 40 MG CAPSULE.DR PO (09:45)
[2021-09-13] MEDS: amLODIPine Besylate 5 MG TABLET PO (09:45)
[2021-09-13] MEDS: Gabapentin 400 MG CAPSULE 800 MG PO ×2 (09:45→15:22)
[2021-09-13] MEDS: Divalproex Sodium 500 MG TABLET.DR PO (09:46)
[2021-09-13] MEDS: hydrOXYzine HCL 50 MG TABLET PO (13:07)
[2021-09-13 15:36] VITALS: BP 103/60; PULSE 88; TEMP 36.4; O2SAT 98
== END 2021-09-13 17:54 | disposition home or self-care (01) ==
PROVIDERS: Nurse Practitioner Family; Physician Assistant; Emergency Provider Emergency Medicine Emergency Medical Services
DX: R45.851 Suicidal ideations (principal); F32.9 Major depressive disorder, single episode, unspecified; F43.10 Post-traumatic stress disorder, unspecified; F14.10 Cocaine abuse, uncomplicated; F10.10 Alcohol abuse, uncomplicated; G35 Multiple sclerosis; E11.9 Type 2 diabetes mellitus without complications; I10 Essential (primary) hypertension; D64.9 Anemia, unspecified; J45.909 Unspecified asthma, uncomplicated; Z20.822 Contact with and (suspected) exposure to COVID-19
CPT/HCPCS: 0241U; 36415; 80053; 80143; 80179; 82077; 83735; 84100; 85025; 87635; 93005; 99285

== ENCOUNTER 2021-09-13 18:59 | Emergency (ER) | payer OTHER, SELFPAY ==
[2021-09-13 20:04] VITALS: BP 129/77; PULSE 99; RESP 20; TEMP 36.9; O2SAT 100; BMI 28.7
--- NOTE | 2021-09-13 20:40 | ECG_ITS ---
Test Reason : OVERTDOSE Blood Pressure : / mmHG Vent. Rate : 089 BPM Atrial Rate : 089 BPM P-R Int : 154 ms QRS Dur : 094 ms QT Int : 424 ms P-R-T Axes : 045 -09 041 degrees QTc Int : 515 ms Normal sinus rhythm Nonspecific T wave abnormality Prolonged QT Abnormal ECG When compared with ECG of 12-SEP-2021 19:45, QT has lengthened Referred By: Virgen Sigala Electronically Signed By:Ted Weiner
--- NOTE | 2021-09-13 20:49 | ED_ITS ---
HPI - Overdose General Chief Complaint: Overdose Stated Complaint: Medication ingestion Time Seen by Provider: 09/13/21 20:34 History of Present Illness HPI Narrative: Patient is 46 years old was recently discharged by psychiatry. Patient waiting in the waiting room. Waited for 2 hours. Subsequently got very annoyed. Patient decided to take an overdose. Two hydroxyzine. Took 2 S eroquel question the dosage. Also 2 took 2 melatonin. Patient denies drinking any alcohol no other recreational drugs. No chest pain or shortness of breath no dizziness no nausea no vomiting. Presented for further evaluation. Patient denies suicidal ideation at this time. Related Data Previous Rx's Medication Instructions Recorded phenazopyridine 100 mg tablet 100 mg PO TID PRN #45 tab 06/29/21 albuterol sulfate 90 mcg/actuation 2 puff INHALATION Q4H PRN 30 Days 09/07/21 aerosol inhaler (Ventolin HFA) #6.7 g amlodipine 5 mg tablet 5 mg PO DAILY 30 Days #30 tab 09/07/21 baclofen 10 mg tablet 10 mg PO TID 30 Days #90 tab 09/07/21 divalproex 500 mg tablet,delayed 500 mg PO BID 30 Days #60 tab 09/07/21 release gabapentin 800 mg tablet 800 mg PO TID 30 Days #90 tab 09/07/21 hydroxyzine HCl 50 mg tablet 50 mg PO TID PRN 30 Days #90 tab 09/07/21 melatonin 3 mg tablet 6 mg PO BEDTIME 30 Days #60 tab 09/07/21 nicotine (polacrilex) 2 mg gum 2 mg BUCCAL Q2H PRN 30 Days #50 ea 09/07/21 omeprazole 40 mg capsule,delayed 40 mg PO DAILY 30 Days #30 cap 09/07/21 release quetiapine 100 mg tablet 100 mg PO TID PRN 30 Days #90 tab 09/07/21 quetiapine 300 mg tablet 300 mg PO BEDTIME 30 Days #30 tab 09/07/21 trazodone 100 mg tablet 300 mg PO BEDTIME 30 Days #90 tab 09/07/21 trolamine salicylate-aloe vera 10 1 appl TOPICAL BID PRN 30 Days 09/07/21 % topical cream (Aspercreme with #35.4 g Aloe) Allergies Allergy/AdvReac Type Severity Reaction Status Date / Time Iodinated Contrast Media Allergy Severe ANAPHYLAXIS Verified 06/13/21 20:16 [CONTRAST, IV] ibuprofen [From Motrin] Allergy Intermediate SWELLING Verified 06/13/21 20:16 morphine [MORPHINE] Allergy Intermediate RASH Verified 06/13/21 20:16 acetaminophen [From TYLENOL] Allergy Mild HIVES Verified 06/13/21 20:16 bee pollen [Bee Stings] Allergy Mild UNKNOWN Verified 06/13/21 20:16 coconut Allergy Mild HIVES/SWELL Verified 06/13/21 20:16 ING latex [Latex] Allergy Mild HIVES Verified 06/13/21 20:16 NSAIDS (Non-Steroidal Allergy Mild HIVES Verified 06/13/21 20:16 Anti-Inflamma [NSAIDS (NON-STEROIDAL ANTI-INFLAMMA] aspirin [ASA] Allergy Unknown HIVES Verified 06/13/21 20:16 tramadol [TRAMADOL] Allergy Unknown UNKNOWN Verified 06/13/21 20:16 turkey Allergy Unknown UNKNOWN Verified 06/13/21 20:16 lidocaine Allergy Rash Verified 06/13/21 20:16 Peppers, Green Allergy Shortness Verified 06/28/21 00:31 of Breath Peppers, Jalapeno Allergy Shortness Verified 06/28/21 00:31 of Breath Peppers, Red Allergy Shortness Verified 06/28/21 00:31 of Breath Peppers, Yellow Allergy Shortness Verified 06/28/21 00:31 of Breath From Vicodin Allergy Mild RASH Uncoded 06/13/21 20:16 Review of Systems Review of Systems: No fever no chills no chest pain or shortness of breath no nausea no vomiting all system reviewed otherwise negative Yes all other systems are reviewed and are negative PMFSH Past Medical History Attestation statement: The following information was validated with the patient. Medical History Alcohol abuse Asthma section wound complication Cocaine abuse Diabetes Fall GERD (gastroesophageal reflux disease) History of seizure Hypertension MDD (major depressive disorder), recurrent episode, severe Multiple sclerosis Multiple sclerosis Multiple sclerosis exacerbation Surgical History History of left ankle joint replacement History of thoracic surgery Social History Social History Household Members: None Housing: Unknown / Unable to assess Housing Other:: hotel Do you presently have visiting nurse or other home services: No Alcohol intake: current Alcohol intake frequency: other Patient Tobacco Use Status: Current everyday Tobacco user Tobacco use type: Cigarette Cigarette Packs Per Day: 0.5 Cigarettes Per Day: 10.0 Years Smoked: 28 e-Cigarette/Vaping Use: Never Used Second Hand Smoke Exposure: Yes Substance Use Type: Crack/Cocaine Advance Directives: Yes Advance Directives on File: Yes Advance Directives Date on File: 08/25/20 Patient : No service: Yes Current occupational status: unemployed Sexual orientation: Did not discuss Physical Exam Vital Signs: Vital Signs: Last Vital Signs Temp 98.4 F 09/13/21 20:04 Pulse 99 09/13/21 20:04 Resp 20 09/13/21 20:04 BP 129/77 09/13/21 20:04 Pulse Ox 100 09/13/21 20:04 BMI result Body Mass Index 28.7 Appearance: Alert. Oriented X3. No acute distress. Eyes: Pupils equal, round and reactive to light. ENT: Pharynx normal. Neck: Normal inspection. Neck supple. No lymph nodes noted. No crepitus CVS: Normal heart rate and rhythm. Pulses normal. Normal S1 and S2 Respiratory: No respiratory distress. Breath sounds normal. No Wheezing. No rales Abdomen: Soft and nontender. No rigidity. No distention. good BS x4 Skin: Skin warm and dry. Normal skin color. Normal skin turgor. Extremities: No lower extremity edema. Neurovascular intact to all extremities. No Lacerations. No Rash Neuro: Oriented X 3. No motor deficit. No sensory deficit. Moving all extermities. No slurred speech MDM - Overdose MDM Narrative Medical decision making narrative: Patient is seen by crisis. Will discharge patient. Patient EKG shows sinus pattern heart rate is 90 FL qrs within normal limits. QTC 515. nonspecific T-wave flattening noted. In stable Medical Records Attestation: I reviewed the patient's medical records. Lab Data Attestation: I reviewed the patient's lab results. Result diagrams: 09/13/21 21:01 09/13/21 21:01 Labs: Lab Results 09/13/21 09/13/21 09/13/21 Range/Units 21:01 21: 21:01 WBC 4.9 (4.8-10.8) X10*3/uL RBC 4.08 L (4.20-5.50) X10*6/uL Hgb 10.3 L (12.0-16.0) g/dl Hct 33.5 L (37.0-47.0) % MCV 82.1 (80.0-98.0) fL MCH 25.2 L (27.0-33.0) pg MCHC 30.7 L (31.0-35.0) g/dl RDW 18.6 H (11.0-16.0) % Plt Count 285 (160-400) X10*3/uL MPV 9.8 (9.4-12.3) fL Immature Gran % (Auto) 0.6 H (0.0-0.4) % Neut % (Auto) 41.8 L (45-73) % Lymph % (Auto) 49.5 H (20-40) % [place] % (Auto) 6.3 (2-11) % Eos % (Auto) 1.0 (0-4) % Baso % (Auto) 0.8 (0-2) % Lymph # (Auto) 2.4 (1.2-4.9) X10*3/uL [place] # (Auto) 0.3 (0.1-1.2) X10*3/uL Eos # (Auto) 0.1 (0.0-0.4) X10*3/uL Baso # (Auto) 0.0 (0.0-0.2) X10*3/uL Abs Immat Gran (auto) 0.03 (0.00-0.03) X10*3/uL Absolute Neuts (auto) 2.1 (2.0-8.3) x10*3/uL Absolute Nucleated RBC 0.000 (0.0-0.012) X10*3/uL Nucleated RBC % (auto) 0.0 (0.0-0.2) /100WBC Sodium 140 (135-145) mmol/L Potassium 3.7 (3.3-5.1) mmol/L Chloride 108 (96-108) mmol/L Carbon Dioxide 24 (22-29) mmol/L Anion Gap 12 (12-20) BUN 10 (9-16) mg/dL Creatinine 0.95 (0.5-1.4) mg/dL Estim Creat Clear Calc 90.4 Estimated GFR > 60 Random Glucose 131 H (60-115) mg/dL Calcium 8.9 (8.4-10.2) mg/dL Total Bilirubin 0.3 (0.0-1.0) mg/dL AST 9 (5-31) U/L ALT 10 (0-31) U/L Alkaline Phosphatase 63 (39-117) U/L Total Protein 6.9 (6.5-8.0) g/dL Albumin 4.0 (3.5-5.0) g/dL Ethyl Alcohol < 10 mg/dL Discharge Plan Discharge Clinical Impression: Anxiety, Drug overdose Patient Disposition: Home, Self-Care Instructions: Anxiety (ED), Adult Overdose (ED) Prescriptions: No Action phenazopyridine 100 mg Tablet 100 mg PO TID PRN (Reason: pain) Qty: 45 RF: 0 quetiapine 300 mg Tablet 300 mg PO BEDTIME 30 Days Qty: 30 RF: 0 quetiapine 100 mg Tablet 100 mg PO TID PRN (Reason: Anxiety) 30 Days Qty: 90 RF: 0 Aspercreme with Aloe 10 % Cream 1 appl topical BID PRN (Reason: MSK pain) 30 Days Qty: 35.4 RF: 0 nicotine (polacrilex) 2 mg Gum 2 mg buccal Q2H PRN (Reason: Nicotine Cravings) 30 Days Qty: 50 RF: 0 hydroxyzine HCl 50 mg Tablet 50 mg PO TID PRN (Reason: Anxiety) 30 Days Qty: 90 RF: 0 melatonin 3 mg Tablet 6 mg PO BEDTIME 30 Days Qty: 60 RF: 0 amlodipine 5 mg Tablet 5 mg PO DAILY 30 Days Qty: 30 RF: 0 divalproex 500 mg Tablet,Delayed Release (Dr/Ec) 500 mg PO BID 30 Days Qty: 60 RF: 0 omeprazole 40 mg Capsule,Delayed Release(Dr/Ec) 40 mg PO DAILY 30 Days Qty: 30 RF: 0 gabapentin 800 mg tablet 800 mg PO TID 30 Days Qty: 90 RF: 0 trazodone 100 mg Tablet 300 mg PO BEDTIME 30 Days Qty: 90 RF: 0 baclofen 10 mg Tablet 10 mg PO TID 30 Days Qty: 90 RF: 0 albuterol sulfate [Ventolin HFA] 90 mcg/actuation Hfa Aerosol Inhaler 2 puff inhalation Q4H PRN (Reason: Shortness Of Breath) 30 Days Qty: 6.7 RF: 0 Referrals: Physician,Nonstaff [Primary Care Provider] - 2 days ( please go to detox)
[2021-09-13 21:06] LABS: MANUAL DIFF FLAG NO
[2021-09-13 21:10] LABS: Basophils Percent Auto 0.8 % (0-2); Eosinophils Absolute Auto 0.1 X10*3/uL (0.0-0.4); Hematocrit 33.5 % (37.0-47.0); Hemoglobin 10.3 g/dl (12.0-16.0); Imm Gran Abs Auto 0.03 X10*3/uL (0.00-0.03); Imm Gran Pct Auto 0.6 % (0.0-0.4); Lymphocytes Absolute Auto 2.4 X10*3/uL (1.2-4.9); Lymphocytes Percent Auto 49.5 % (20-40); Mean Corpuscular HGB Conc 30.7 g/dl (31.0-35.0); Mean Corpuscular Hemoglobin 25.2 pg (27.0-33.0); Mean Corpuscular Volume 82.1 fL (80.0-98.0); Mean Platelet Volume 9.8 fL (9.4-12.3); Monocytes Absolute Auto 0.3 X10*3/uL (0.1-1.2); Monocytes Percent Auto 6.3 % (2-11); Neutrophils Absolute Auto 2.1 x10*3/uL (2.0-8.3); Neutrophils Percent Auto 41.8 % (45-73); Platelet Count 285 X10*3/uL (160-400); Red Blood Count 4.08 X10*6/uL (4.20-5.50); Red Cell Distribution Width 18.6 % (11.0-16.0); White Blood Count 4.9 X10*3/uL (4.8-10.8)
[2021-09-13 21:19] LABS: Ethanol < 10 mg/dL
[2021-09-13 21:21] LABS: Alanine Aminotransferase 10 U/L (0-31); Alkaline Phosphatase 63 U/L (39-117); Anion Gap 12 (12-20); Aspartate Amino Transferase 9 U/L (5-31); Bilirubin Total 0.3 mg/dL (0.0-1.0); Blood Urea Nitrogen 10 mg/dL (9-16); Calcium 8.9 mg/dL (8.4-10.2); Carbon Dioxide 24 mmol/L (22-29); Chloride 108 mmol/L (96-108); Creatinine Clr Calc Pharmacy 90.4; Estimated Glomerular Filt Rate > 60; Glucose Random 131 mg/dL (60-115); Potassium 3.7 mmol/L (3.3-5.1); Sodium 140 mmol/L (135-145); Total Protein 6.9 g/dL (6.5-8.0)
--- NOTE | 2021-09-13 22:58 | HO.SUDE ---
CARE team attempted to meet with pt, who would not wake up and engage despite shaking the bed, shaking her bed, speaking loudly, turning off the TV in her room, and sitting her stretcher upright at a 90 degree angle. Unable to complete SUDE or risk assessment to determine need for crisis evaluation. Per documentation- no SI, she took the medications because she waited for 2 hrs for a ride to [place] for treatment and was upset.
[2021-09-13 23:36] VITALS: BP 120/76; PULSE 86; RESP 20; O2SAT 97
--- NOTE | 2021-09-13 23:38 | PC.NURSE ---
pt has been eating wili crackers multiples of them drink at bedside. pt is arrousable and is playing possum by sleeping when staff comes around. pt is discharged to the waiting room to find a ride.
== END 2021-09-13 23:56 | disposition home or self-care (01) ==
PROVIDERS: Emergency Provider Emergency Medicine Emergency Medical Services
DX: T43.592A Poisoning by other antipsychotics and neuroleptics, intentional self-harm, initial encounter (principal); Y92.238 Other place in hospital as the place of occurrence of the external cause; F41.9 Anxiety disorder, unspecified; E11.9 Type 2 diabetes mellitus without complications; I10 Essential (primary) hypertension; G35 Multiple sclerosis; F10.10 Alcohol abuse, uncomplicated; F14.10 Cocaine abuse, uncomplicated; F17.200 Nicotine dependence, unspecified, uncomplicated
CPT/HCPCS: 80053; 82077; 85025; 93005; 99283; 99284

== ENCOUNTER 2021-09-14 06:59 | Emergency (ER) | payer OTHER, SELFPAY ==
[2021-09-14 07:10] VITALS: BP 121/90; PULSE 75; RESP 18; TEMP 36.4; O2SAT 100; BMI 35.9
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
[2021-09-14 08:06] LABS: Amphetamine Screen Urine Not Detected (Not Detect); Barbiturates, Urine Not Detected (Not Detect); Benzodiazepines Screen Urine Not Detected (Not Detect); Cannabinoid Screen Urine Not Detected (Not Detect); Cocaine Screen Urine POSITIVE (Not Detect); Fentanyl, urine POSITIVE (Not Detect); Opiate Screen Urine Not Detected (Not Detect); Phencyclidine Screen Urine Not Detected (Not Detect)
[2021-09-14 08:13] LABS: COVID-19 Test Negative (Negative); IDNOW Serial# 9DD0AD1C
[2021-09-14 09:01] VITALS: BP 121/90; PULSE 75
[2021-09-14] MEDS: Divalproex Sodium 500 MG TABLET.DR PO (09:01)
[2021-09-14] MEDS: amLODIPine Besylate 5 MG TABLET PO (09:01)
[2021-09-14] MEDS: Gabapentin 400 MG CAPSULE 800 MG PO ×2 (09:01→13:49)
[2021-09-14] MEDS: Baclofen 10 MG TABLET PO (09:01)
[2021-09-14] MEDS: hydrOXYzine HCL 50 MG TABLET PO ×2 (09:01→13:49)
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
== END 2021-09-14 13:52 | disposition home or self-care (01) ==
PROVIDERS: Emergency Provider Emergency Medicine
DX: F33.1 Major depressive disorder, recurrent, moderate (principal); R45.851 Suicidal ideations; R45.850 Homicidal ideations; F41.1 Generalized anxiety disorder; F43.0 Acute stress reaction; F14.10 Cocaine abuse, uncomplicated; F17.210 Nicotine dependence, cigarettes, uncomplicated; Z71.6 Tobacco abuse counseling; Z20.822 Contact with and (suspected) exposure to COVID-19; Z79.899 Other long term (current) drug therapy
CPT/HCPCS: 36415; 80307; 87635; 99284

== ENCOUNTER 2022-01-20 11:57 | Emergency (ER) | payer OTHER, SELFPAY ==
[2022-01-20 12:05] VITALS: BP 140/94; PULSE 89; O2SAT 98
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
[2022-01-20 12:22] VITALS: BP 152/86; PULSE 94; RESP 16; TEMP 36.4; O2SAT 99; BMI 41.8
[2022-01-20 12:51] LABS: COVID-19 Test Negative (Negative); IDNOW Serial# 55D5AD1C; Influenza A Negative (Negative); Influenza B2 Negative (Negative)
== END 2022-01-20 13:17 | disposition home or self-care (01) ==
PROVIDERS: Physician Assistant; Emergency Provider Emergency Medicine
DX: F33.1 Major depressive disorder, recurrent, moderate (principal); R45.851 Suicidal ideations; M79.10 Myalgia, unspecified site; G35 Multiple sclerosis; F14.90 Cocaine use, unspecified, uncomplicated; F17.210 Nicotine dependence, cigarettes, uncomplicated; Z20.822 Contact with and (suspected) exposure to COVID-19; Z79.899 Other long term (current) drug therapy; Z71.6 Tobacco abuse counseling
CPT/HCPCS: 87502; 87635; 99282; 99283

== ENCOUNTER 2022-02-05 20:50 | Emergency (ER) | payer OTHER, SELFPAY ==
--- NOTE | 2022-02-05 | ECG_ITS ---
Test Reason : chest pain Blood Pressure : / mmHG Vent. Rate : 098 BPM Atrial Rate : 098 BPM P-R Int : 156 ms QRS Dur : 092 ms QT Int : 294 ms P-R-T Axes : 047 -24 134 degrees QTc Int : 375 ms Normal sinus rhythm Moderate voltage criteria for LVH, may be normal variant ( R in aVL , [place] product ) Nonspecific T wave abnormality Abnormal ECG When compared with ECG of 13-SEP-2021 21:48, QT has shortened Referred By: Generic ED Physician Electronically Signed By:DAVIN BLAKE
--- NOTE | 2022-02-05 21:08 | PC.NURSE ---
Gordo MORENO and Bertin MORENO called pt for triage and ECG, but pt had left the waiting room and went outside to make a phone call. Pt was later found back in the restroom, unable to obtain ECG within 10 minutes due to unable to locate pt. Gordo MORENO told pt to stay in the waiting room for when she is called again.
[2022-02-05 21:24] VITALS: BP 146/97; PULSE 107; O2SAT 96
[2022-02-05 21:25] VITALS: PULSE 105; RESP 18; TEMP 36.7; O2SAT 96; BMI 37.6
--- NOTE | 2022-02-05 22:54 | ED_ITS ---
HPI - Chest Pain General Chief Complaint: Chest Pain Stated Complaint: cp Time Seen by Provider: 02/05/22 22:02 Related Data Previous Rx's Medication Instructions Recorded phenazopyridine 100 mg tablet 100 mg PO TID PRN #45 tab 06/29/21 albuterol sulfate 90 mcg/actuation 2 puff INHALATION Q4H PRN 30 Days 09/07/21 aerosol inhaler (Ventolin HFA) #6.7 g amlodipine 5 mg tablet 5 mg PO DAILY 30 Days #30 tab 09/07/21 baclofen 10 mg tablet 10 mg PO TID 30 Days #90 tab 09/07/21 divalproex 500 mg tablet,delayed 500 mg PO BID 30 Days #60 tab 09/07/21 release gabapentin 800 mg tablet 800 mg PO TID 30 Days #90 tab 09/07/21 hydroxyzine HCl 50 mg tablet 50 mg PO TID PRN 30 Days #90 tab 09/07/21 melatonin 3 mg tablet 6 mg PO BEDTIME 30 Days #60 tab 09/07/21 nicotine (polacrilex) 2 mg gum 2 mg BUCCAL Q2H PRN 30 Days #50 ea 09/07/21 omeprazole 40 mg capsule,delayed 40 mg PO DAILY 30 Days #30 cap 09/07/21 release quetiapine 100 mg tablet 100 mg PO TID PRN 30 Days #90 tab 09/07/21 quetiapine 300 mg tablet 300 mg PO BEDTIME 30 Days #30 tab 09/07/21 trazodone 100 mg tablet 300 mg PO BEDTIME 30 Days #90 tab 09/07/21 trolamine salicylate-aloe vera 10 1 appl TOPICAL BID PRN 30 Days 09/07/21 % topical cream (Aspercreme with #35.4 g Aloe) Allergies Allergy/AdvReac Type Severity Reaction Status Date / Time Iodinated Contrast Media Allergy Severe ANAPHYLAXIS Verified 09/14/21 07:09 [CONTRAST, IV] ibuprofen [From Motrin] Allergy Intermediate SWELLING Verified 09/14/21 07:09 morphine [MORPHINE] Allergy Intermediate RASH Verified 09/14/21 07:09 acetaminophen [From TYLENOL] Allergy Mild HIVES Verified 09/14/21 07:09 bee pollen [Bee Stings] Allergy Mild UNKNOWN Verified 09/14/21 07:09 coconut Allergy Mild HIVES/SWELL Verified 09/14/21 07:09 ING latex [Latex] Allergy Mild HIVES Verified 09/14/21 07:09 NSAIDS (Non-Steroidal Allergy Mild HIVES Verified 09/14/21 07:09 Anti-Inflamma [NSAIDS (NON-STEROIDAL ANTI-INFLAMMA] aspirin [ASA] Allergy Unknown HIVES Verified 09/14/21 07:09 tramadol [TRAMADOL] Allergy Unknown UNKNOWN Verified 09/14/21 07:09 turkey Allergy Unknown UNKNOWN Verified 09/14/21 07:09 lidocaine Allergy Rash Verified 09/14/21 07:09 Peppers, Green Allergy Shortness Verified 09/14/21 07:09 of Breath Peppers, Jalapeno Allergy Shortness Verified 09/14/21 07:09 of Breath Peppers, Red Allergy Shortness Verified 09/14/21 07:09 of Breath Peppers, Yellow Allergy Shortness Verified 09/14/21 07:09 of Breath From Vicodin Allergy Mild RASH Uncoded 06/13/21 20:16 PMFSH Past Medical History Medical History Alcohol abuse Asthma section wound complication Cocaine abuse Diabetes Fall GERD (gastroesophageal reflux disease) History of seizure Hypertension MDD (major depressive disorder), recurrent episode, severe Multiple sclerosis Multiple sclerosis Multiple sclerosis exacerbation Surgical History History of left ankle joint replacement History of thoracic surgery Social History Social History Household Members: None Housing: Unknown / Unable to assess Housing Other:: hotel Do you presently have visiting nurse or other home services: No Alcohol intake: current Alcohol intake frequency: other Patient Tobacco Use Status: Current everyday Tobacco user Tobacco use type: Cigarette Cigarette Packs Per Day: 0.5 Cigarettes Per Day: 10.0 Years Smoked: 28 e-Cigarette/Vaping Use: Never Used Second Hand Smoke Exposure: Yes Substance Use Type: Crack/Cocaine Advance Directives: Yes Advance Directives on File: Yes Advance Directives Date on File: 08/25/20 service: Yes Current occupational status: unemployed Sexual orientation: Did not discuss Physical Exam Vital Signs: Vital Signs: Last Vital Signs Temp 98.1 F 02/05/22 21:25 Pulse 105 H 02/05/22 21:25 Resp 18 02/05/22 21:25 Pulse Ox 96 02/05/22 21:25 BMI result Body Mass Index 37.6 MDM - Chest Pain MDM Narrative Medical decision making narrative: Patient's chest pain atypical in nature. No risk factors for PE. Patient's EKG showed a sinus pattern rate is 100 [place] QRS QTC within normal limits there is nonspecific T-wave flattening noted. Patient's cardiac enzymes x2 sets were negative. In the setting of atypical history. Patient's chest pain happens when she lack of Ativan. Improved with Ativan. No changes in EKG. Patient will require follow-up on an outpatient Medical Records Data Attestation: I reviewed the patient's medical records. Lab Data Attestation: I reviewed the patient's lab results. Result diagrams: 02/05/22 23:41 02/05/22 23:41 Labs: Lab Results 02/05/22 02/05/22 02/05/22 Range/Units 23:41 23:41 23:41 WBC 6.9 (4.8-10.8) X10*3/uL RBC 4.22 (4.20-5.50) X10*6/uL Hgb 10.1 L (12.0-16.0) g/dl Hct 33.1 L (37.0-47.0) % MCV 78.4 L (80.0-98.0) fL MCH 23.9 L (27.0-33.0) pg MCHC 30.5 L (31.0-35.0) g/dl RDW 19.3 H (11.0-16.0) % Plt Count 319 (160-400) X10*3/uL MPV 11.8 (9.4-12.3) fL Immature Gran % (Auto) 0.6 H (0.0-0.4) % Neut % (Auto) 59.7 (45-73) % Lymph % (Auto) 31.6 (20-40) % [place] % (Auto) 7.1 (2-11) % Eos % (Auto) 0.6 (0-4) % Baso % (Auto) 0.4 (0-2) % Lymph # (Auto) 2.2 (1.2-4.9) X10*3/uL [place] # (Auto) 0.5 (0.1-1.2) X10*3/uL Eos # (Auto) 0.0 (0.0-0.4) X10*3/uL Baso # (Auto) 0.0 (0.0-0.2) X10*3/uL Abs Immat Gran (auto) 0.04 H (0.00-0.03) X10*3/uL Absolute Neuts (auto) 4.1 (2.0-8.3) x10*3/uL Absolute Nucleated RBC 0.000 (0.0-0.012) X10*3/uL Nucleated RBC % (auto) 0.0 (0.0-0.2) /100WBC Sodium 140 (135-145) mmol/L Potassium 3.7 (3.3-5.1) mmol/L Chloride 108 (96-108) mmol/L Carbon Dioxide 22 (22-29) mmol/L Anion Gap 14 (12-20) BUN 10 (9-16) mg/dL Creatinine 0.82 (0.5-1.4) mg/dL Estim Creat Clear Calc 120.0 Estimated GFR > 60 Random Glucose 105 (60-115) mg/dL Calcium 9.9 D (8.4-10.2) mg/dL Troponin I High Sens < 3.5 (<3.5-17.0) ng/L 02/06/22 Range/Units 01:19 WBC (4.8-10.8) X10*3/uL RBC (4.20-5.50) X10*6/uL Hgb (12.0-16.0) g/dl Hct (37.0-47.0) % MCV (80.0-98.0) fL MCH (27.0-33.0) pg MCHC (31.0-35.0) g/dl RDW (11.0-16.0) % Plt Count (160-400) X10*3/uL MPV (9.4-12.3) fL Immature Gran % (Auto) (0.0-0.4) % Neut % (Auto) (45-73) % Lymph % (Auto) (20-40) % [place] % (Auto) (2-11) % Eos % (Auto) (0-4) % Baso % (Auto) (0-2) % Lymph # (Auto) (1.2-4.9) X10*3/uL [place] # (Auto) (0.1-1.2) X10*3/uL Eos # (Auto) (0.0-0.4) X10*3/uL Baso # (Auto) (0.0-0.2) X10*3/uL Abs Immat Gran (auto) (0.00-0.03) X10*3/uL Absolute Neuts (auto) (2.0-8.3) x10*3/uL Absolute Nucleated RBC (0.0-0.012) X10*3/uL Nucleated RBC % (auto) (0.0-0.2) /100WBC Sodium (135-145) mmol/L Potassium (3.3-5.1) mmol/L Chloride (96-108) mmol/L Carbon Dioxide (22-29) mmol/L Anion Gap (12-20) BUN (9-16) mg/dL Creatinine (0.5-1.4) mg/dL Estim Creat Clear Calc Estimated GFR Random Glucose (60-115) mg/dL Calcium (8.4-10.2) mg/dL Troponin I High Sens < 3.5 (<3.5-17.0) ng/L Discharge Plan Discharge Clinical Impression: Chest pain Patient Disposition: Home, Self-Care Instructions: Chest Pain (DC) Prescriptions: No Action phenazopyridine 100 mg Tablet 100 mg PO TID PRN (Reason: pain) Qty: 45 0RF quetiapine 300 mg Tablet 300 mg PO BEDTIME 30 Days Qty: 30 0RF quetiapine 100 mg Tablet 100 mg PO TID PRN (Reason: Anxiety) 30 Days Qty: 90 0RF Aspercreme with Aloe 10 % Cream 1 appl topical BID PRN (Reason: MSK pain) 30 Days Qty: 35.4 0RF Rx Instructions: pt tolerates ASA administered in topical cream nicotine (polacrilex) 2 mg Gum 2 mg buccal Q2H PRN (Reason: Nicotine Cravings) 30 Days Qty: 50 0RF hydroxyzine HCl 50 mg Tablet 50 mg PO TID PRN (Reason: Anxiety) 30 Days Qty: 90 0RF melatonin 3 mg Tablet 6 mg PO BEDTIME 30 Days Qty: 60 0RF amlodipine 5 mg Tablet 5 mg PO DAILY 30 Days Qty: 30 0RF Protocol: Hold for SBP< HOLD for SBP < : 90 divalproex 500 mg Tablet,Delayed Release (Dr/Ec) 500 mg PO BID 30 Days Qty: 60 0RF omeprazole 40 mg Capsule,Delayed Release(Dr/Ec) 40 mg PO DAILY 30 Days Qty: 30 0RF gabapentin 800 mg tablet 800 mg PO TID 30 Days Qty: 90 0RF trazodone 100 mg Tablet 300 mg PO BEDTIME 30 Days Qty: 90 0RF baclofen 10 mg Tablet 10 mg PO TID 30 Days Qty: 90 0RF albuterol sulfate [Ventolin HFA] 90 mcg/actuation Hfa Aerosol Inhaler 2 puff inhalation Q4H PRN (Reason: Shortness Of Breath) 30 Days Qty: 6.7 0RF Referrals: Physician,None [Primary Care Provider] -
[2022-02-05] MEDS: LORazepam 1 MG TABLET PO (23:19)
[2022-02-05 23:49] LABS: Basophils Percent Auto 0.4 % (0-2); Eosinophils Percent Auto 0.6 % (0-4); Hematocrit 33.1 % (37.0-47.0); Hemoglobin 10.1 g/dl (12.0-16.0); Imm Gran Abs Auto 0.04 X10*3/uL (0.00-0.03); Imm Gran Pct Auto 0.6 % (0.0-0.4); Lymphocytes Absolute Auto 2.2 X10*3/uL (1.2-4.9); Lymphocytes Percent Auto 31.6 % (20-40); MANUAL DIFF FLAG NO; Mean Corpuscular HGB Conc 30.5 g/dl (31.0-35.0); Mean Corpuscular Hemoglobin 23.9 pg (27.0-33.0); Mean Corpuscular Volume 78.4 fL (80.0-98.0); Mean Platelet Volume 11.8 fL (9.4-12.3); Monocytes Absolute Auto 0.5 X10*3/uL (0.1-1.2); Monocytes Percent Auto 7.1 % (2-11); Neutrophils Absolute Auto 4.1 x10*3/uL (2.0-8.3); Neutrophils Percent Auto 59.7 % (45-73); Platelet Count 319 X10*3/uL (160-400); Red Blood Count 4.22 X10*6/uL (4.20-5.50); Red Cell Distribution Width 19.3 % (11.0-16.0); White Blood Count 6.9 X10*3/uL (4.8-10.8)
[2022-02-06 00:05] LABS: Anion Gap 14 (12-20); Blood Urea Nitrogen 10 mg/dL (9-16); Calcium 9.9 mg/dL (8.4-10.2); Carbon Dioxide 22 mmol/L (22-29); Chloride 108 mmol/L (96-108); Estimated Glomerular Filt Rate > 60; Glucose Random 105 mg/dL (60-115); Potassium 3.7 mmol/L (3.3-5.1); Sodium 140 mmol/L (135-145)
[2022-02-06 00:09] LABS: Troponin-I High Sensitivity < 3.5 ng/L (<3.5-17.0)
[2022-02-06 01:46] LABS: Troponin-I High Sensitivity < 3.5 ng/L (<3.5-17.0)
[2022-02-06 02:24] VITALS: BP 181/96; PULSE 77; RESP 18; O2SAT 99
== END 2022-02-06 02:33 | disposition home or self-care (01) ==
PROVIDERS: Emergency Provider Emergency Medicine Emergency Medical Services
DX: R07.9 Chest pain, unspecified (principal); I10 Essential (primary) hypertension; E11.9 Type 2 diabetes mellitus without complications; J45.909 Unspecified asthma, uncomplicated; G35 Multiple sclerosis; F17.210 Nicotine dependence, cigarettes, uncomplicated
CPT/HCPCS: 36415; 80048; 84484; 85025; 93005; 99283; 99284

== ENCOUNTER 2022-02-09 00:01 | Emergency (ER) | payer OTHER, SELFPAY ==
[2022-02-09 00:10] VITALS: BP 154/96; PULSE 83; RESP 19; TEMP 36.8; O2SAT 97; BMI 33.9
--- NOTE | 2022-02-09 00:11 | ED_ITS ---
HPI - Psych General Chief Complaint: Psychiatric Symptoms Stated Complaint: crisis,si Time Seen by Provider: 02/09/22 00:10 Source: patient Mode of arrival: EMS Limitations: no limitations History of Present Illness HPI Narrative: Patient history of PTSD major depressive disorder history of cocaine use and multiple sclerosis came by ambulance with chief complaint of suicidal ideation for last few days wakes up in the night feels like hurting herself, currently does not have any plan no homicidal failing no hallucinations disease Related Data Home Medications Medication Instructions Recorded Confirmed omeprazole 40 mg capsule,delayed 1 cap PO DAILY 02/09/22 02/09/22 release quetiapine 200 mg tablet 1 tab PO BID 02/09/22 02/09/22 Previous Rx's Medication Instructions Recorded albuterol sulfate 90 mcg/actuation 2 puff INHALATION Q4H PRN 30 Days 09/07/21 aerosol inhaler (Ventolin HFA) #6.7 g amlodipine 5 mg tablet 5 mg PO DAILY 30 Days #30 tab 09/07/21 baclofen 10 mg tablet 10 mg PO TID 30 Days #90 tab 09/07/21 divalproex 500 mg tablet,delayed 500 mg PO BID 30 Days #60 tab 09/07/21 release melatonin 3 mg tablet 6 mg PO BEDTIME 30 Days #60 tab 09/07/21 Allergies Allergy/AdvReac Type Severity Reaction Status Date / Time Iodinated Contrast Media Allergy Severe ANAPHYLAXIS Verified 09/14/21 07:09 [CONTRAST, IV] ibuprofen [From Motrin] Allergy Intermediate SWELLING Verified 09/14/21 07:09 morphine [MORPHINE] Allergy Intermediate RASH Verified 09/14/21 07:09 acetaminophen [From TYLENOL] Allergy Mild HIVES Verified 09/14/21 07:09 bee pollen [Bee Stings] Allergy Mild UNKNOWN Verified 09/14/21 07:09 coconut Allergy Mild HIVES/SWELL Verified 09/14/21 07:09 ING latex [Latex] Allergy Mild HIVES Verified 09/14/21 07:09 NSAIDS (Non-Steroidal Allergy Mild HIVES Verified 09/14/21 07:09 Anti-Inflamma [NSAIDS (NON-STEROIDAL ANTI-INFLAMMA] aspirin [ASA] Allergy Unknown HIVES Verified 09/14/21 07:09 tramadol [TRAMADOL] Allergy Unknown UNKNOWN Verified 09/14/21 07:09 turkey Allergy Unknown UNKNOWN Verified 09/14/21 07:09 lidocaine Allergy Rash Verified 09/14/21 07:09 Peppers, Green Allergy Shortness Verified 09/14/21 07:09 of Breath Peppers, Jalapeno Allergy Shortness Verified 09/14/21 07:09 of Breath Peppers, Red Allergy Shortness Verified 09/14/21 07:09 of Breath Peppers, Yellow Allergy Shortness Verified 09/14/21 07:09 of Breath From Vicodin Allergy Mild RASH Uncoded 06/13/21 20:16 Review of Systems Review of Systems: Yes all other systems are reviewed and are negative [facility] Past Medical History Medical History Alcohol abuse Asthma section wound complication Cocaine abuse Diabetes Fall GERD (gastroesophageal reflux disease) History of seizure Hypertension MDD (major depressive disorder), recurrent episode, severe Multiple sclerosis Multiple sclerosis Multiple sclerosis exacerbation Surgical History History of left ankle joint replacement History of thoracic surgery Social History Social History Household Members: None Housing: Unknown / Unable to assess Housing Other:: hotel Do you presently have visiting nurse or other home services: No Alcohol intake: current Alcohol intake frequency: other Patient Tobacco Use Status: Current everyday Tobacco user Tobacco use type: Cigarette Cigarette Packs Per Day: 0.5 Cigarettes Per Day: 10.0 Years Smoked: 28 e-Cigarette/Vaping Use: Never Used Second Hand Smoke Exposure: Yes Substance Use Type: Crack/Cocaine Advance Directives: Yes Advance Directives on File: Yes Advance Directives Date on File: 08/25/20 Patient : No service: Yes Current occupational status: unemployed Sexual orientation: Did not discuss Physical Exam Vital Signs: Vital Signs: Last Vital Signs Temp 98.3 F 02/09/22 00:10 Pulse 83 02/09/22 00:10 Resp 19 02/09/22 00:10 BP 154/96 H 02/09/22 00:10 Pulse Ox 97 02/09/22 00:10 BMI result Body Mass Index 33.9 Appearance: Alert. Oriented X3. No acute distress. Eyes: PERRLA, No Nystagmus ENT: Pharynx normal. Oral Mucosa moist Neck: Normal inspection. Neck supple. CVS: Normal heart rate and rhythm. Pulses normal. Respiratory: No respiratory distress. Equal air entry bilateral, no wheezing/rales/rhonchi Abdomen: Soft and nontender. Bowel sounds are present, no mass palpable, no CVA tenderness Skin: Skin warm and dry. Normal skin color. Normal skin turgor. Extremities: No lower extremity edema. psych: Calm and cooperative denies any suicidal ideation at this time Neuro: Oriented X 3. No motor deficit. No sensory deficit.No cerebellar signs , cranial nerves II-XII intact MDM - Psych MDM Narrative Medical decision making narrative: Patient with major depressive disorder with PTSD frequent ED visits for suicidal ideation no plan at this time will consult crisis for evaluation Lab Data Labs: Lab Results 02/09/22 02/09/22 02/09/22 Range/Units 00:20 00:20 00:20 Urine Color DK YELLOW Urine Appearance HAZY Urine pH 5.5 (5.0-8.0) Ur Specific [place] >= 1.030 H (1.005-1.025) Urine Protein 2+ H (NEG-TRACE) MG/DL Urine Glucose (UA) NEG (NEG) MG/DL Urine Ketones NEG (NEG) MG/DL Urine Blood 3+ H (NEG) Urine Nitrite NEG (NEG) Ur Leukocyte Esterase NEG (NEG) Urine RBC 0-2 (0) /HPF Urine WBC 1-4 (0-4) /HPF Ur Squamous Epith Cells 2+ /LPF Urine Bacteria 2+ /LPF Urine Mucus 3+ /LPF Urine Test (NEGATIVE) Urine Opiates Screen Not Detected (Not Detect) Urine Fentanyl Screen Not Detected (Not Detect) Ur Barbiturates Screen Not Detected (Not Detect) Ur Phencyclidine Scrn Not Detected (Not Detect) Ur Amphetamines Screen POSITIVE H (Not Detect) U Benzodiazepines Scrn Not Detected (Not Detect) Urine Cocaine Screen Not Detected (Not Detect) U Marijuana (THC) Screen Not Detected (Not Detect) COVID-19 (BRENDA) Negative (Negative) COVID-19 Clin Com See Note 02/09/22 Range/Units 00:20 Urine Color Urine Appearance Urine pH (5.0-8.0) Ur Specific [place] (1.005-1.025) Urine Protein (NEG-TRACE) MG/DL Urine Glucose (UA) (NEG) MG/DL Urine Ketones (NEG) MG/DL Urine Blood (NEG) Urine Nitrite (NEG) Ur Leukocyte Esterase (NEG) Urine RBC (0) /HPF Urine WBC (0-4) /HPF Ur Squamous Epith Cells /LPF Urine Bacteria /LPF Urine Mucus /LPF Urine Test NEGATIVE (NEGATIVE) Urine Opiates Screen (Not Detect) Urine Fentanyl Screen (Not Detect) Ur Barbiturates Screen (Not Detect) Ur Phencyclidine Scrn (Not Detect) Ur Amphetamines Screen (Not Detect) U Benzodiazepines Scrn (Not Detect) Urine Cocaine Screen (Not Detect) U Marijuana (THC) Screen (Not Detect) COVID-19 (BRENDA) (Negative) COVID-19 Clin Com Discharge Plan Discharge Clinical Impression: Depression, Weakness, Suicidal ideation Patient Disposition: Still a Patient Prescriptions: No Action melatonin 3 mg Tablet 6 mg PO BEDTIME 30 Days Qty: 60 0RF amlodipine 5 mg Tablet 5 mg PO DAILY 30 Days Qty: 30 0RF Protocol: Hold for SBP< HOLD for SBP < : 90 divalproex 500 mg Tablet,Delayed Release (Dr/Ec) 500 mg PO BID 30 Days Qty: 60 0RF baclofen 10 mg Tablet 10 mg PO TID 30 Days Qty: 90 0RF albuterol sulfate [Ventolin HFA] 90 mcg/actuation Hfa Aerosol Inhaler 2 puff inhalation Q4H PRN (Reason: Shortness Of Breath) 30 Days Qty: 6.7 0RF omeprazole 40 mg capsule,delayed release(DR/EC) 1 cap PO DAILY 0RF quetiapine 200 mg tablet 1 tab PO BID 0RF
[2022-02-09 00:41] LABS: COVID-19 Test Negative (Negative)
[2022-02-09 00:49] LABS: Appearance Urine HAZY; Color Urine DK YELLOW; Glucose Urine UA NEG (NEG); Leukocyte Esterase Urine NEG (NEG); Nitrite Urine NEG (NEG); PH 5.5 (5.0-8.0); Specific Gravity - Urine >= 1.030 (1.005-1.025); Urine Blood 3+ (NEG); Urine Ketones NEG (NEG); Urine Protein 2+ MG/DL (NEG-TRACE)
[2022-02-09] MEDS: LORazepam 1 MG TABLET 2 MG PO (00:50)
[2022-02-09 00:51] LABS: UPreg QC Valid YES; Urine Pregnancy NEGATIVE (NEGATIVE)
[2022-02-09 00:55] LABS: Bacteria Urine 2+ /LPF; Mucus Urine 3+ /LPF; RBC Urine 0-2 /HPF (0); Squamous Epithelial Cell Urine 2+ /LPF
[2022-02-09 01:07] LABS: Amphetamine Screen Urine POSITIVE (Not Detect); Barbiturates, Urine Not Detected (Not Detect); Benzodiazepines Screen Urine Not Detected (Not Detect); Cannabinoid Screen Urine Not Detected (Not Detect); Cocaine Screen Urine Not Detected (Not Detect); Fentanyl, urine Not Detected (Not Detect); Opiate Screen Urine Not Detected (Not Detect); Phencyclidine Screen Urine Not Detected (Not Detect)
[2022-02-09 01:42] LABS: Basophils Percent Auto 0.3 % (0-2); Eosinophils Absolute Auto 0.1 X10*3/uL (0.0-0.4); Eosinophils Percent Auto 1.1 % (0-4); Hematocrit 32.9 % (37.0-47.0); Hemoglobin 9.9 g/dl (12.0-16.0); Imm Gran Abs Auto 0.04 X10*3/uL (0.00-0.03); Imm Gran Pct Auto 0.6 % (0.0-0.4); Lymphocytes Absolute Auto 2.8 X10*3/uL (1.2-4.9); Lymphocytes Percent Auto 43.7 % (20-40); MANUAL DIFF FLAG NO; Mean Corpuscular HGB Conc 30.1 g/dl (31.0-35.0); Mean Corpuscular Hemoglobin 23.7 pg (27.0-33.0); Mean Corpuscular Volume 78.7 fL (80.0-98.0); Mean Platelet Volume 10.5 fL (9.4-12.3); Monocytes Absolute Auto 0.5 X10*3/uL (0.1-1.2); Monocytes Percent Auto 7.1 % (2-11); Neutrophils Percent Auto 47.2 % (45-73); Platelet Count 273 X10*3/uL (160-400); Red Blood Count 4.18 X10*6/uL (4.20-5.50); Red Cell Distribution Width 18.8 % (11.0-16.0); White Blood Count 6.3 X10*3/uL (4.8-10.8)
[2022-02-09 01:55] LABS: Ethanol < 10 mg/dL
[2022-02-09 01:59] LABS: Acetaminophen LAB < 1 mcg/mL (<30); Anion Gap 12 (12-20); Blood Urea Nitrogen 9 mg/dL (9-16); Calcium 9.3 mg/dL (8.4-10.2); Carbon Dioxide 23 mmol/L (22-29); Chloride 108 mmol/L (96-108); Creatinine Clr Calc Pharmacy 102.2; Estimated Glomerular Filt Rate > 60; Glucose Random 94 mg/dL (60-115); Potassium 3.8 mmol/L (3.3-5.1); Salicylate < 5.0 mg/dL (15-30); Sodium 139 mmol/L (135-145)
[2022-02-09 02:02] LABS: Valproate 49.7 mcg/mL (50.0-100.0)
--- NOTE | 2022-02-09 06:02 | PC.NURSE ---
Patient slept through the night, no distress observed/reported, [facility] referral completed/confirmed/pending ETA, med rec completed/pending provider's approval, behavior non concerning and appropriate, patient's ambulates with walker safely, VSS, will continue to monitor.
--- NOTE | 2022-02-09 07:53 | PC.NURSE ---
patient appears to remain asleep at present respirations are even and unlabored patient appears in no distress
--- NOTE | 2022-02-09 09:12 | PHA.MEDREC ---
Pharmacy Consult ? Medication Reconciliation Pharmacy has completed the medication reconciliation. Trina King, JuliaD
[2022-02-09 13:31] VITALS: BP 104/74; PULSE 77; RESP 18; TEMP 36.9; O2SAT 98
[2022-02-09] MEDS: Divalproex Sodium 500 MG TABLET.DR PO (13:35)
[2022-02-09] MEDS: Omeprazole 40 MG CAPSULE.DR PO (13:35)
[2022-02-09] MEDS: amLODIPine Besylate 5 MG TABLET PO (13:35)
[2022-02-09] MEDS: QUEtiapine Fumarate 200 MG TABLET PO (13:36)
[2022-02-09] MEDS: Baclofen 10 MG TABLET PO (15:13)
--- NOTE | 2022-02-09 15:52 | MHC.CARE ---
CARE Team met with patient in 7; she was alert and oriented, easily engaged. She explained that she has been clean from all substances for the last seven months, said she was saved by the [employer]ec[employer], goes to pentecostal and bible study, talks to her parents frequently. Has been living in [place] but recently moved back here is [facility] [place], he is also in recovery. Patient feels that lately she is not able to clean herself and is struggling with other physical issues related to weight game, and MS symptoms, frustrated about one of her SSI check not being deposited. She said that she is scheduled to move into a sober living house on , her father arranged this. Patient has a therapist and psychiatrist, is getting a [employer] soon, feels her medications are working well, she requested going to respite. She does not appear to be in crisis, denied suicidal plan or intention and is future oriented. Called [facility] spoke to wash house supervisor, Ricardo, he stated there are no beds available today but likely tomorrow, he said patient can call [facility] to see if there were any abrupt discharges and she should call tomorrow morning after 8:30am, [facility] will transport her, evaluate and arrange the respite. Patient was in agreement with plan to discharge home, will call [facility] for support tonight and then in the morning. CARE Team will also call patient tomorrow to follow up with her. Patient will be transported home via [facility] ED provider, CAROL Schwab and wash house supervisor, Karine Powers, [employer] consulted and in agreement with plan of care.
== END 2022-02-09 15:54 | disposition home or self-care (01) ==
PROVIDERS: Emergency Provider Internal Medicine
DX: F33.9 Major depressive disorder, recurrent, unspecified (principal); R45.851 Suicidal ideations; R53.1 Weakness; G35 Multiple sclerosis; E11.9 Type 2 diabetes mellitus without complications; I10 Essential (primary) hypertension; J45.909 Unspecified asthma, uncomplicated; F17.210 Nicotine dependence, cigarettes, uncomplicated; Z20.822 Contact with and (suspected) exposure to COVID-19
CPT/HCPCS: 36415; 80048; 80143; 80164; 80179; 80307; 81001; 81025; 82077; 85025; 87635; 99284

== ENCOUNTER 2022-02-10 08:29 | Emergency (ER) | payer OTHER, SELFPAY ==
[2022-02-10 08:52] VITALS: PULSE 88; RESP 16; TEMP 37.1; O2SAT 95; BMI 53.6
--- NOTE | 2022-02-10 09:27 | MHC.CARE ---
Caprice Smart sheet submitted
[2022-02-10 09:29] LABS: Appearance Urine HAZY; Color Urine YELLOW; Glucose Urine UA NEG (NEG); Leukocyte Esterase Urine TRACE (NEG); Nitrite Urine NEG (NEG); Specific Gravity - Urine >= 1.030 (1.005-1.025); UACC Culture Trigger NO; UPreg QC Valid YES; Urine Blood 3+ (NEG); Urine Ketones NEG (NEG); Urine Pregnancy NEGATIVE (NEGATIVE); Urine Protein 1+ MG/DL (NEG-TRACE)
[2022-02-10 09:38] LABS: Squamous Epithelial Cell Urine 4+ /LPF
[2022-02-10 09:39] LABS: Bacteria Urine 1+ /LPF; RBC Urine 0-2 /HPF (0)
[2022-02-10 09:41] LABS: Amphetamine Screen Urine POSITIVE (Not Detect); Barbiturates, Urine Not Detected (Not Detect); Benzodiazepines Screen Urine Not Detected (Not Detect); Cannabinoid Screen Urine Not Detected (Not Detect); Cocaine Screen Urine Not Detected (Not Detect); Fentanyl, urine POSITIVE (Not Detect); Opiate Screen Urine Not Detected (Not Detect); Phencyclidine Screen Urine Not Detected (Not Detect)
[2022-02-10 09:42] LABS: COVID-19 Test Negative (Negative)
--- NOTE | 2022-02-10 10:10 | PC.NURSE ---
PT SEEN BY TIP ABERNATHY(MAK), PT AWARE OF PLAN OF CARE.
[2022-02-10 10:22] LABS: MANUAL DIFF FLAG NO
[2022-02-10 10:24] LABS: Basophils Percent Auto 0.8 % (0-2); Eosinophils Absolute Auto 0.1 X10*3/uL (0.0-0.4); Hematocrit 38.6 % (37.0-47.0); Hemoglobin 11.5 g/dl (12.0-16.0); Imm Gran Abs Auto 0.04 X10*3/uL (0.00-0.03); Imm Gran Pct Auto 0.8 % (0.0-0.4); Lymphocytes Absolute Auto 1.7 X10*3/uL (1.2-4.9); Lymphocytes Percent Auto 34.4 % (20-40); Mean Corpuscular HGB Conc 29.8 g/dl (31.0-35.0); Mean Corpuscular Hemoglobin 23.8 pg (27.0-33.0); Mean Corpuscular Volume 79.8 fL (80.0-98.0); Mean Platelet Volume 10.7 fL (9.4-12.3); Monocytes Absolute Auto 0.2 X10*3/uL (0.1-1.2); Monocytes Percent Auto 4.7 % (2-11); Neutrophils Absolute Auto 2.8 x10*3/uL (2.0-8.3); Neutrophils Percent Auto 57.3 % (45-73); Platelet Count 269 X10*3/uL (160-400); Red Blood Count 4.84 X10*6/uL (4.20-5.50); Red Cell Distribution Width 18.9 % (11.0-16.0); White Blood Count 4.9 X10*3/uL (4.8-10.8)
--- NOTE | 2022-02-10 10:25 | ED_ITS ---
HPI - Psych General Chief Complaint: Psychiatric Symptoms Stated Complaint: SECTION 12 SI/HI, CRISIS Time Seen by Provider: 02/10/22 10:30 Source: patient Mode of arrival: ambulatory Limitations: no limitations History of Present Illness HPI Narrative: [age] year female with history of MS presents ED for suicidal ideation. Patient was found with knife stating she would kill self. Patient states she is tired of her life being difficult due to MS, and foy with drug addiction. Patient states needs more support. Patient patient has been clean from drugs for the past 17 months. Patient states she has no therapist. Patient states she was supposed to get a bed from respite by [facility] but that did not occur. Related Data Home Medications Medication Instructions Recorded Confirmed gabapentin 800 mg tablet 1 tab PO TID 02/09/22 02/10/22 omeprazole 40 mg capsule,delayed 1 cap PO DAILY@0630 02/09/22 02/10/22 release quetiapine 200 mg tablet 1 tab PO BID 02/09/22 02/10/22 trazodone 150 mg tablet 1 tab PO BEDTIME 02/09/22 02/10/22 albuterol sulfate 90 mcg/actuation 2 puff INHALATION Q6H PRN 02/10/22 02/10/22 aerosol inhaler (Ventolin HFA) docusate sodium 100 mg capsule 1 cap PO BID PRN 02/10/22 02/10/22 melatonin 3 mg tablet 9 mg PO BEDTIME 02/10/22 02/10/22 Previous Rx's Medication Instructions Recorded amlodipine 5 mg tablet 5 mg PO DAILY 30 Days #30 tab 09/07/21 baclofen 10 mg tablet 10 mg PO TID 30 Days #90 tab 09/07/21 divalproex 500 mg tablet,delayed 500 mg PO BID 30 Days #60 tab 09/07/21 release Allergies Allergy/AdvReac Type Severity Reaction Status Date / Time Iodinated Contrast Media Allergy Severe ANAPHYLAXIS Verified 09/14/21 07:09 [CONTRAST, IV] ibuprofen [From Motrin] Allergy Intermediate SWELLING Verified 09/14/21 07:09 morphine [MORPHINE] Allergy Intermediate RASH Verified 09/14/21 07:09 acetaminophen [From TYLENOL] Allergy Mild HIVES Verified 09/14/21 07:09 bee pollen [Bee Stings] Allergy Mild UNKNOWN Verified 09/14/21 07:09 coconut Allergy Mild HIVES/SWELL Verified 09/14/21 07:09 ING latex [Latex] Allergy Mild HIVES Verified 09/14/21 07:09 NSAIDS (Non-Steroidal Allergy Mild HIVES Verified 09/14/21 07:09 Anti-Inflamma [NSAIDS (NON-STEROIDAL ANTI-INFLAMMA] aspirin [ASA] Allergy Unknown HIVES Verified 09/14/21 07:09 tramadol [TRAMADOL] Allergy Unknown UNKNOWN Verified 09/14/21 07:09 turkey Allergy Unknown UNKNOWN Verified 09/14/21 07:09 lidocaine Allergy Rash Verified 09/14/21 07:09 Peppers, Green Allergy Shortness Verified 09/14/21 07:09 of Breath Peppers, Jalapeno Allergy Shortness Verified 09/14/21 07:09 of Breath Peppers, Red Allergy Shortness Verified 09/14/21 07:09 of Breath Peppers, Yellow Allergy Shortness Verified 09/14/21 07:09 of Breath From Vicodin Allergy Mild RASH Uncoded 06/13/21 20:16 Review of Systems Review of Systems: Suicide and homicide. Yes all other systems are reviewed and are negative PMFSH Past Medical History Medical History Alcohol abuse Asthma section wound complication Cocaine abuse Diabetes Fall GERD (gastroesophageal reflux disease) History of seizure Hypertension MDD (major depressive disorder), recurrent episode, severe Multiple sclerosis Multiple sclerosis Multiple sclerosis exacerbation Surgical History History of left ankle joint replacement History of thoracic surgery Social History Social History Household Members: None Housing: Unknown / Unable to assess Housing Other:: hotel Do you presently have visiting nurse or other home services: No Alcohol intake: current Alcohol intake frequency: other Patient Tobacco Use Status: Never used Tobacco Tobacco use type: Cigarette Cigarette Packs Per Day: 0.5 Cigarettes Per Day: 10.0 Years Smoked: 28 e-Cigarette/Vaping Use: Never Used Second Hand Smoke Exposure: Yes Use of substances other than those prescribed or required for medical reasons: No Substance Use Type: Crack/Cocaine Advance Directives: Yes Advance Directives on File: Yes Advance Directives Date on File: 08/25/20 service: Yes Current occupational status: unemployed Sexual orientation: Did not discuss Physical Exam Vital Signs: Vital Signs: Last Vital Signs Temp 99.0 F 02/10/22 14:32 Pulse 83 02/10/22 14:32 Resp 16 02/10/22 14:32 BP 121/53 L 02/10/22 14:32 Pulse Ox 99 02/10/22 14:32 BMI result Body Mass Index 53.6 Const: General: cooperative, healthy appearing, comfortable, no acute distress, well developed, alert, awake and Physically active Orientation/consciousness: patient oriented x3 HEENT: Head: Yes normal to inspection, Yes No palpable skull fracture present, Yes normocephalic, Yes atraumatic and No abrasion Neck: Neck: Yes normal visual inspection, Yes full ROM, Yes no lymphade nopathy, Yes no meningeal signs, Yes trachea midline, Yes supple, No anterior neck swelling and No tender Chest: Chest palpation & inspection: normal inspection of the chest and normal palpation of entire chest wall Resp: Effort & Inspection: normal respiratory effort and able to speak in co mplete sentences Auscultation: clear to auscultation bilaterally Cardio: Jugular venous distension: no JVD Heart sounds: S1 normal heart sound present and S2 normal heart sound present GI: Inspection: Yes normal to inspection and No abdominal wall ecchymosis Palpation (GI): Soft to palpation, not firm, nontender, no guarding and not rigid : General: No CVA tenderness and Yes no CVA tenderness Back/Spine/Pelvis: Back: no CVA tenderness, No CVA tenderness and No back tenderness Skin: General skin exam: no rashes or lesions noted and elasticity normal Neuro: Other: Baseline ambulate with walker. Patient ambulate with walker General: patient oriented x3, no meningeal signs and CN's II-XI intact bilaterally Cranial nerves: Yes CN's II-XII intact bilaterally Extrem: General: Yes normal to inspection and Yes full ROM Psych: Appearance: grossly normal, well kempt and not disheveled Course Course Course Narrative: Basic lab crisis consult placed Reevaluation(s) Reevaluation #1: Patient labs are normal. Patient evaluated by care team consulted Garcia states patient will be discharged and be referred for partial hospitalization. Patient no longer suicidal homicidal. Patient states she will follow up with all the referallsw and is not suicidal/homicidal. Time: 13:26 MDM - Psych MDM Narrative Medical decision making narrative: Depression Lab Data Result diagrams: 02/10/22 10:18 02/10/22 10:18 Labs: Lab Results 02/10/22 02/10/22 02/10/22 Range/Units 09:10 09:10 09:10 WBC (4.8-10.8) X10*3/uL RBC (4.20-5.50) X10*6/uL Hgb (12.0-16.0) g/dl Hct (37.0-47.0) % MCV (80.0-98.0) fL MCH (27.0-33.0) pg MCHC (31.0-35.0) g/dl RDW (11.0-16.0) % Plt Count (160-400) X10*3/uL MPV (9.4-12.3) fL Immature Gran % (Auto) (0.0-0.4) % Neut % (Auto) (45-73) % Lymph % (Auto) (20-40) % [place] % (Auto) (2-11) % Eos % (Auto) (0-4) % Baso % (Auto) (0-2) % Lymph # (Auto) (1.2-4.9) X10*3/uL [place] # (Auto) (0.1-1.2) X10*3/uL Eos # (Auto) (0.0-0.4) X10*3/uL Baso # (Auto) (0.0-0.2) X10*3/uL Abs Immat Gran (auto) (0.00-0.03) X10*3/uL Absolute Neuts (auto) (2.0-8.3) x10*3/uL Absolute Nucleated RBC (0.0-0.012) X10*3/uL Nucleated RBC % (auto) (0.0-0.2) /100WBC Sodium (135-145) mmol/L Potassium (3.3-5.1) mmol/L Chloride (96-108) mmol/L Carbon Dioxide (22-29) mmol/L Anion Gap (12-20) BUN (9-16) mg/dL Creatinine (0.5-1.4) mg/dL Estim Creat Clear Calc Estimated GFR Random Glucose (60-115) mg/dL Calcium (8.4-10.2) mg/dL Total Bilirubin (0.0-1.0) mg/dL AST (5-31) U/L ALT (0-31) U/L Alkaline Phosphatase (39-117) U/L Total Protein (6.5-8.0) g/dL Albumin (3.5-5.0) g/dL Urine Color YELLOW Urine Appearance HAZY Urine pH 6.0 (5.0-8.0) Ur Specific Todd >= 1.030 H (1.005-1.025) Urine Protein 1+ H (NEG-TRACE) MG/DL Urine Glucose (UA) NEG (NEG) MG/DL Urine Ketones NEG (NEG) MG/DL Urine Blood 3+ H (NEG) Urine Nitrite NEG (NEG) Ur Leukocyte Esterase TRACE H (NEG) Urine RBC 0-2 (0) /HPF Urine WBC 1-4 (0-4) /HPF Ur Squamous Epith Cells 4+ /LPF Urine Bacteria 1+ /LPF Urine Test NEGATIVE (NEGATIVE) Urine Opiates Screen (Not Detect) Urine Fentanyl Screen (Not Detect) Ur Barbiturates Screen (Not Detect) Ur Phencyclidine Scrn (Not Detect) Ur Amphetamines Screen (Not Detect) U Benzodiazepines Scrn (Not Detect) Urine Cocaine Screen (Not Detect) U Marijuana (THC) Screen (Not Detect) Ethyl Alcohol mg/dL COVID-19 (BRENDA) Negative (Negative) COVID-19 Clin Com See Note 02/10/22 02/10/22 02/10/22 Range/Units 09:10 10:18 10:18 WBC 4.9 (4.8-10.8) X10*3/uL RBC 4.84 (4.20-5.50) X10*6/uL Hgb 11.5 L (12.0-16.0) g/dl Hct 38.6 (37.0-47.0) % MCV 79.8 L (80.0-98.0) fL MCH 23.8 L (27.0-33.0) pg MCHC 29.8 L (31.0-35.0) g/dl RDW 18.9 H (11.0-16.0) % Plt Count 269 (160-400) X10*3/uL MPV 10.7 (9.4-12.3) fL Immature Gran % (Auto) 0.8 H (0.0-0.4) % Neut % (Auto) 57.3 (45-73) % Lymph % (Auto) 34.4 (20-40) % [place] % (Auto) 4.7 (2-11) % Eos % (Auto) 2.0 (0-4) % Baso % (Auto) 0.8 (0-2) % Lymph # (Auto) 1.7 (1.2-4.9) X10*3/uL [place] # (Auto) 0.2 (0.1-1.2) X10*3/uL Eos # (Auto) 0.1 (0.0-0.4) X10*3/uL Baso # (Auto) 0.0 (0.0-0.2) X10*3/uL Abs Immat Gran (auto) 0.04 H (0.00-0.03) X10*3/uL Absolute Neuts (auto) 2.8 (2.0-8.3) x10*3/uL Absolute Nucleated RBC 0.000 (0.0-0.012) X10*3/uL Nucleated RBC % (auto) 0.0 (0.0-0.2) /100WBC Sodium 140 (135-145) mmol/L Potassium 4.0 (3.3-5.1) mmol/L Chloride 108 (96-108) mmol/L Carbon Dioxide 21 L (22-29) mmol/L Anion Gap 15 (12-20) BUN 7 L (9-16) mg/dL Creatinine 0.90 (0.5-1.4) mg/dL Estim Creat Clear Calc 102.6 Estimated GFR > 60 Random Glucose 117 H (60-115) mg/dL Calcium 9.6 (8.4-10.2) mg/dL Total Bilirubin 0.3 (0.0-1.0) mg/dL AST 10 (5-31) U/L ALT 8 (0-31) U/L Alkaline Phosphatase 69 (39-117) U/L Total Protein 8.1 H (6.5-8.0) g/dL Albumin 4.4 (3.5-5.0) g/dL Urine Color Urine Appearance Urine pH (5.0-8.0) Ur Specific Todd (1.005-1.025) Urine Protein (NEG-TRACE) MG/DL Urine Glucose (UA) (NEG) MG/DL Urine Ketones (NEG) MG/DL Urine Blood (NEG) Urine Nitrite (NEG) Ur Leukocyte Esterase (NEG) Urine RBC (0) /HPF Urine WBC (0-4) /HPF Ur Squamous Epith Cells /LPF Urine Bacteria /LPF Urine Test (NEGATIVE) Urine Opiates Screen Not Detected (Not Detect) Urine Fentanyl Screen POSITIVE H (Not Detect) Ur Barbiturates Screen Not Detected (Not Detect) Ur Phencyclidine Scrn Not Detected (Not Detect) Ur Amphetamines Screen POSITIVE H (Not Detect) U Benzodiazepines Scrn Not Detected (Not Detect) Urine Cocaine Screen Not Detected (Not Detect) U Marijuana (THC) Screen Not Detected (Not Detect) Ethyl Alcohol mg/dL COVID-19 (BRENDA) (Negative) COVID-19 Clin Com 02/10/22 Range/Units 10:18 WBC (4.8-10.8) X10*3/uL RBC (4.20-5.50) X10*6/uL Hgb (12.0-16.0) g/dl Hct (37.0-47.0) % MCV (80.0-98.0) fL MCH (27.0-33.0) pg MCHC (31.0-35.0) g/dl RDW (11.0-16.0) % Plt Count (160-400) X10*3/uL MPV (9.4-12.3) fL Immature Gran % (Auto) (0.0-0.4) % Neut % (Auto) (45-73) % Lymph % (Auto) (20-40) % [place] % (Auto) (2-11) % Eos % (Auto) (0-4) % Baso % (Auto) (0-2) % Lymph # (Auto) (1.2-4.9) X10*3/uL [place] # (Auto) (0.1-1.2) X10*3/uL Eos # (Auto) (0.0-0.4) X10*3/uL Baso # (Auto) (0.0-0.2) X10*3/uL Abs Immat Gran (auto) (0.00-0.03) X10*3/uL Absolute Neuts (auto) (2.0-8.3) x10*3/uL Absolute Nucleated RBC (0.0-0.012) X10*3/uL Nucleated RBC % (auto) (0.0-0.2) /100WBC Sodium (135-145) mmol/L Potassium (3.3-5.1) mmol/L Chloride (96-108) mmol/L Carbon Dioxide (22-29) mmol/L Anion Gap (12-20) BUN (9-16) mg/dL Creatinine (0.5-1.4) mg/dL Estim Creat Clear Calc Estimated GFR Random Glucose (60-115) mg/dL Calcium (8.4-10.2) mg/dL Total Bilirubin (0.0-1.0) mg/dL AST (5-31) U/L ALT (0-31) U/L Alkaline Phosphatase (39-117) U/L Total Protein (6.5-8.0) g/dL Albumin (3.5-5.0) g/dL Urine Color Urine Appearance Urine pH (5.0-8.0) Ur Specific Todd (1.005-1.025) Urine Protein (NEG-TRACE) MG/DL Urine Glucose (UA) (NEG) MG/DL Urine Ketones (NEG) MG/DL Urine Blood (NEG) Urine Nitrite (NEG) Ur Leukocyte Esterase (NEG) Urine RBC (0) /HPF Urine WBC (0-4) /HPF Ur Squamous Epith Cells /LPF Urine Bacteria /LPF Urine Test (NEGATIVE) Urine Opiates Screen (Not Detect) Urine Fentanyl Screen (Not Detect) Ur Barbiturates Screen (Not Detect) Ur Phencyclidine Scrn (Not Detect) Ur Amphetamines Screen (Not Detect) U Benzodiazepines Scrn (Not Detect) Urine Cocaine Screen (Not Detect) U Marijuana (THC) Screen (Not Detect) Ethyl Alcohol < 10 mg/dL COVID-19 (BRENDA) (Negative) COVID-19 Clin Com Discharge Plan Discharge Clinical Impression: Depression Patient Disposition: Home, Self-Care Instructions: Depression (ED) Additional Instructions: You are being referred to partial hospitalization and therapists by Care Team. Return to the ED immediately for any physical complaints, suicidal/homicidal ideation, auditory/visual hallucinations, or any other concerning symptoms. Prescriptions: No Action amlodipine 5 mg Tablet 5 mg PO DAILY 30 Days Qty: 30 0RF Protocol: Hold for SBP< HOLD for SBP < : 90 divalproex 500 mg Tablet,Delayed Release (Dr/Ec) 500 mg PO BID 30 Days Qty: 60 0RF baclofen 10 mg Tablet 10 mg PO TID 30 Days Qty: 90 0RF docusate sodium 100 mg capsule 1 cap PO BID PRN (Reason: constipation) 0RF melatonin 3 mg tablet 9 mg PO BEDTIME 0RF albuterol sulfate [Ventolin HFA] 90 mcg/actuation HFA aerosol inhaler 2 puff inhalation Q6H PRN (Reason: Shortness Of Breath) 0RF omeprazole 40 mg capsule,delayed release(DR/EC) 1 cap PO DAILY@0630 0RF quetiapine 200 mg tablet 1 tab PO BID 0RF gabapentin 800 mg tablet 1 tab PO TID 0RF trazodone 150 mg tablet 1 tab PO BEDTIME 0RF Interventions: ED Discharge Assessment Last Done: 02/10/22 15:20 Discharge Date/Time: 02/10/22 15:21 Print Language: Serbian
--- NOTE | 2022-02-10 10:34 | PC.NURSE ---
PT SEEN BY CARE TEAM (JONATHON), PT AWARE OF PLANH OF CARE.
[2022-02-10 10:47] LABS: Ethanol < 10 mg/dL
[2022-02-10 10:53] LABS: Alanine Aminotransferase 8 U/L (0-31); Albumin Level 4.4 g/dL (3.5-5.0); Alkaline Phosphatase 69 U/L (39-117); Anion Gap 15 (12-20); Aspartate Amino Transferase 10 U/L (5-31); Bilirubin Total 0.3 mg/dL (0.0-1.0); Blood Urea Nitrogen 7 mg/dL (9-16); Calcium 9.6 mg/dL (8.4-10.2); Carbon Dioxide 21 mmol/L (22-29); Chloride 108 mmol/L (96-108); Creatinine Clr Calc Pharmacy 102.6; Estimated Glomerular Filt Rate > 60; Glucose Random 117 mg/dL (60-115); Sodium 140 mmol/L (135-145); Total Protein 8.1 g/dL (6.5-8.0)
[2022-02-10] MEDS: LORazepam 1 MG TABLET 2 MG PO (11:25)
--- NOTE | 2022-02-10 11:48 | PHA.MEDREC ---
Pharmacy Consult ? Medication Reconciliation Pharmacy has completed the medication reconciliation. Spoke with patient in the ED who knew all medications.
--- NOTE | 2022-02-10 13:19 | MHC.CARE ---
Pt is a 46 y/o , Hungarian speaking, female who is previously known to the CARE Team through prior assessments and multiple ED visits.? Today, pt was found with a knife threatening to kill herself and her .? She reports being tired of her life being difficult due to her struggles with addiction and maintaining sobriety and her Multiple Sclerosis.? Pt is saying she requires ?More? support.? Pt has been medically cleared and is being assessed by the CARE Team to determine appropriate treatment recommendations. Pt has an extensive hx of inpt hospitalizations dating back to 2014.? She has a hx of suicidal gestures.? Past dx of Depressive d/o, cocaine use d/o, alcohol use d/o, and personality d/o.? Pt is alert and oriented x4 and is assessed in her room in the behavioral health pod of the ED.? She is dressed in hospital attire, is lying in bed, and appears older than her stated age.? Her appearance is otherwise unremarkable.? Pt speaks clearly, is soft spoken and is engaged in the assessment.? She is help seeking and is requesting to go inpatient.? She states that the reason for her request is that she is feeling anxious due to some stressors that have been occurring lately.? She stated she needs to get her medications straightened out, though she did not note any recent medication changes.? She states other reasons for her needing inpatient as both she and her are handicapped and she cannot care for her effectively.? In addition, she states that her doesn?t cook pickled meat after himself and she has grown tired of doing so.? Her eye contact was within normal limits.? She reports good sleep and appetite.? She describes her mood as being anxious.? She attributes her increased anxiety to some financial issues, transportation difficulty and not knowing how to navigate these issues.? She demonstrates a full range of affect.? She does not appear delusional or experiencing symptoms of psychosis.? She denies , and self-harm urges.? She stated that earlier today she experienced SI and HI, ?in relation to ?My fussing at me to do things for him.?? She stated that she is no longer experiencing SI and HI. CARE Team called pt?s Moustapha Durán and left a message. Pt stated that she has been clean for 17 months and has recently moved back to the area from [facility].? Her toxicology screen is, however, positive for Fentanyl and Amphetamines.? She was presently staying with her at the [facility] in [facility].? She states that she cannot ?go back there? citing again that her doesn?t cook pickled meat after himself and she cannot care for him due to his handicap. Pt is requesting inpatient level of care but does not meet criteria for inpatient.? She is also requesting respite and is presently refusing a partial hospitalization program as this would not solve her housing issues.? Pt states that she has a bed at a sober living home beginning . Pt has no day structure in place or outpatient providers.? She lacks natural supports, financial security, and effective coping mechanisms.? Pt is resistant to any other levels of Care that are not inpatient levels of care.? CARE Team has contacted [facility] to inquire about the availability of a respite bed.? CARE Team awaits a return call. Pt does not meet criteria for in patient level of care.? Pt could benefit from a partial hospitalization program, development of coping skills, and regular counseling.? CARE Team will submit referrals for PHP and [facility] for a counselor.? This disposition was discussed with and agreed upon by ED provider Caprice Maier, CARE Home Care Aide Edelmira RODRIGUEZ, and pt?s nurse TIFFANIE Zelaya.
--- NOTE | 2022-02-10 13:27 | PC.NURSE ---
case management at bedside, pt aware of plan of care. pt requested case management.
[2022-02-10 14:32] VITALS: BP 121/53; PULSE 83; RESP 16; TEMP 37.2; O2SAT 99
== END 2022-02-10 15:21 | disposition home or self-care (01) ==
PROVIDERS: Physician Assistant; Emergency Provider Emergency Medicine
DX: F33.1 Major depressive disorder, recurrent, moderate (principal); R45.850 Homicidal ideations; R45.851 Suicidal ideations; F14.90 Cocaine use, unspecified, uncomplicated; F17.210 Nicotine dependence, cigarettes, uncomplicated; Z79.899 Other long term (current) drug therapy; Z20.822 Contact with and (suspected) exposure to COVID-19; Z71.6 Tobacco abuse counseling
CPT/HCPCS: 36415; 80053; 80307; 81001; 81025; 82077; 85025; 87635; 99284

== ENCOUNTER 2022-02-14 18:43 | Emergency (ER) | payer OTHER, SELFPAY ==
[2022-02-14 18:58] VITALS: BP 149/103; PULSE 101; RESP 18; TEMP 37.1; O2SAT 98; BMI 34.2
[2022-02-14 19:23] LABS: Appearance Urine HAZY; Color Urine ORANGE; Glucose Urine UA NEG (NEG); Leukocyte Esterase Urine NEG (NEG); Nitrite Urine NEG (NEG); PH 5.5 (5.0-8.0); Specific Gravity - Urine >= 1.030 (1.005-1.025); Urine Blood NEG (NEG); Urine Ketones 5 MG/DL (NEG); Urine Protein NEG (NEG-TRACE)
[2022-02-14 19:37] LABS: Amphetamine Screen Urine POSITIVE (Not Detect); Barbiturates, Urine Not Detected (Not Detect); Benzodiazepines Screen Urine Not Detected (Not Detect); Cannabinoid Screen Urine Not Detected (Not Detect); Cocaine Screen Urine Not Detected (Not Detect); Fentanyl, urine Not Detected (Not Detect); Opiate Screen Urine Not Detected (Not Detect); Phencyclidine Screen Urine Not Detected (Not Detect)
[2022-02-14 19:38] LABS: COVID-19 Test Negative (Negative)
--- NOTE | 2022-02-14 19:47 | ED.PSYCH ---
HPI - Psych General Chief Complaint: Psychiatric Symptoms Stated Complaint: CRISIS,SI W/PLAN PER EMS Time Seen by Provider: 02/14/22 19:47 Source: patient Mode of arrival: EMS Limitations: no limitations History of Present Illness HPI Narrative: Patient has frequent ED visits been here on 02/09 also 02/10 for same severe depression with suicidal ideation comes here again today with thought of driving her 's wheelchair into the traffic patient's [place] [address] Related Data Home Medications Medication Instructions Recorded Confirmed gabapentin 800 mg tablet 1 tab PO TID 02/09/22 02/14/22 omeprazole 40 mg capsule,delayed 1 cap PO DAILY@0630 02/09/22 02/14/22 release quetiapine 200 mg tablet 1 tab PO BID 02/09/22 02/14/22 trazodone 150 mg tablet 1 tab PO BEDTIME 02/09/22 02/14/22 albuterol sulfate 90 mcg/actuation 2 puff INHALATION Q6H PRN 02/10/22 02/14/22 aerosol inhaler (Ventolin HFA) docusate sodium 100 mg capsule 1 cap PO BID PRN 02/10/22 02/14/22 melatonin 3 mg tablet 9 mg PO BEDTIME 02/10/22 02/14/22 Previous Rx's Medication Instructions Recorded amlodipine 5 mg tablet 5 mg PO DAILY 30 Days #30 tab 09/07/21 baclofen 10 mg tablet 10 mg PO TID 30 Days #90 tab 09/07/21 divalproex 500 mg tablet,delayed 500 mg PO BID 30 Days #60 tab 09/07/21 release Allergies Allergy/AdvReac Type Severity Reaction Status Date / Time Iodinated Contrast Media Allergy Severe ANAPHYLAXIS Verified 09/14/21 07:09 [CONTRAST, IV] ibuprofen [From Motrin] Allergy Intermediate SWELLING Verified 09/14/21 07:09 morphine [MORPHINE] Allergy Intermediate RASH Verified 09/14/21 07:09 acetaminophen [From TYLENOL] Allergy Mild HIVES Verified 09/14/21 07:09 bee pollen [Bee Stings] Allergy Mild UNKNOWN Verified 09/14/21 07:09 coconut Allergy Mild HIVES/SWELL Verified 09/14/21 07:09 ING latex [Latex] Allergy Mild HIVES Verified 09/14/21 07:09 NSAIDS (Non-Steroidal Allergy Mild HIVES Verified 09/14/21 07:09 Anti-Inflamma [NSAIDS (NON-STEROIDAL ANTI-INFLAMMA] aspirin [ASA] Allergy Unknown HIVES Verified 09/14/21 07:09 tramadol [TRAMADOL] Allergy Unknown UNKNOWN Verified 09/14/21 07:09 turkey Allergy Unknown UNKNOWN Verified 09/14/21 07:09 lidocaine Allergy Rash Verified 09/14/21 07:09 Peppers, Green Allergy Shortness Verified 09/14/21 07:09 of Breath Peppers, Jalapeno Allergy Shortness Verified 09/14/21 07:09 of Breath Peppers, Red Allergy Shortness Verified 09/14/21 07:09 of Breath Peppers, Yellow Allergy Shortness Verified 09/14/21 07:09 of Breath From Vicodin Allergy Mild RASH Uncoded 06/13/21 20:16 Review of Systems Review of Systems: Yes all other systems are reviewed and are negative [facility] Past Medical History Medical History Alcohol abuse Asthma section wound complication Cocaine abuse Diabetes Fall GERD (gastroesophageal reflux disease) History of seizure Hypertension MDD (major depressive disorder), recurrent episode, severe Multiple sclerosis Multiple sclerosis Multiple sclerosis exacerbation Surgical History History of left ankle joint replacement History of thoracic surgery Social History Social History Household Members: None Housing: Unknown / Unable to assess Housing Other:: hotel Do you presently have visiting nurse or other home services: No Alcohol intake: current Alcohol intake frequency: other Patient Tobacco Use Status: Never used Tobacco Tobacco use type: Cigarette Cigarette Packs Per Day: 0.5 Cigarettes Per Day: 10.0 Years Smoked: 28 e-Cigarette/Vaping Use: Never Used Second Hand Smoke Exposure: Yes Substance Use Type: Crack/Cocaine Advance Directives: Yes Advance Directives on File: Yes Advance Directives Date on File: 08/25/20 Patient : No service: Yes Current occupational status: unemployed Sexual orientation: Did not discuss Physical Exam Vital Signs: Vital Signs: Last Vital Signs Temp 98.7 F 02/15/22 00:02 Pulse 84 02/15/22 00:02 Resp 18 02/15/22 00:02 BP 123/79 02/15/22 00:02 Pulse Ox 95 02/15/22 00:02 BMI result Body Mass Index 34.2 Appearance: Alert. Oriented X3. No acute distress. Eyes: PERRLA, No Nystagmus ENT: Pharynx normal. Oral Mucosa moist Neck: Normal inspection. Neck supple. CVS: Normal heart rate and rhythm. Pulses normal. Respiratory: No respiratory distress. Equal air entry bilateral, no wheezing/rales/rhonchi Abdomen: Soft and nontender. Bowel sounds are present, no mass palpable, no CVA tenderness Skin: Skin warm and dry. Normal skin color. Normal skin turgor. Extremities: No lower extremity edema. No calf tenderness psych: Depression+ with suicidal feeling Neuro: Oriented X 3. No motor deficit. No sensory deficit.No cerebellar signs , cranial nerves II-XII intact MDM - Psych MDM Narrative Medical decision making narrative: Patient has frequent ED visits for depression with suicidal ideation was seen here 2 times in last for week will get crisis consult again Lab Data Attestation: I reviewed the patient's lab results. Labs: Lab Results 02/14/22 02/14/22 02/14/22 Range/Units 19:14 19:14 19:14 Urine Color ORANGE A Urine Appearance HAZY Urine pH 5.5 (5.0-8.0) Ur Specific [place] >= 1.030 H (1.005-1.025) Urine Protein NEG (NEG-TRACE) MG/DL Urine Glucose (UA) NEG (NEG) MG/DL Urine Ketones 5 (NEG) MG/DL Urine Blood NEG (NEG) Urine Nitrite NEG (NEG) Ur Leukocyte Esterase NEG (NEG) Salicylates (15-30) mg/dL Urine Opiates Screen Not Detected (Not Detect) Urine Fentanyl Screen Not Detected (Not Detect) Acetaminophen (<30) mcg/mL Ur Barbiturates Screen Not Detected (Not Detect) Valproic Acid (50.0-100.0) mcg/mL Ur Phencyclidine Scrn Not Detected (Not Detect) Ur Amphetamines Screen POSITIVE H (Not Detect) U Benzodiazepines Scrn Not Detected (Not Detect) Urine Cocaine Screen Not Detected (Not Detect) U Marijuana (THC) Screen Not Detected (Not Detect) Ethyl Alcohol mg/dL COVID-19 (BRENDA) Negative (Negative) COVID-19 Clin Com See Note 05/09/22 05/09/22 05/09/22 Range/Units 20:08 20:09 20:09 Urine Color Urine Appearance Urine pH (5.0-8.0) Ur Specific [place] (1.005-1.025) Urine Protein (NEG-TRACE) MG/DL Urine Glucose (UA) (NEG) MG/DL Urine Ketones (NEG) MG/DL Urine Blood (NEG) Urine Nitrite (NEG) Ur Leukocyte Esterase (NEG) Salicylates < 5.0 L (15-30) mg/dL Urine Opiates Screen (Not Detect) Urine Fentanyl Screen (Not Detect) Acetaminophen < 1 (<30) mcg/mL Ur Barbiturates Screen (Not Detect) Valproic Acid 21.5 L (50.0-100.0) mcg/mL Ur Phencyclidine Scrn (Not Detect) Ur Amphetamines Screen (Not Detect) U Benzodiazepines Scrn (Not Detect) Urine Cocaine Screen (Not Detect) U Marijuana (THC) Screen (Not Detect) Ethyl Alcohol < 10 mg/dL COVID-19 (BRENDA) (Negative) COVID-19 Clin Com Discharge Plan Discharge Clinical Impression: Depression, Suicidal ideation Patient Disposition: Still a Patient Prescriptions: No Action amlodipine 5 mg Tablet 5 mg PO DAILY 30 Days Qty: 30 0RF Protocol: Hold for SBP< HOLD for SBP < : 90 divalproex 500 mg Tablet,Delayed Release (Dr/Ec) 500 mg PO BID 30 Days Qty: 60 0RF baclofen 10 mg Tablet 10 mg PO TID 30 Days Qty: 90 0RF docusate sodium 100 mg capsule 1 cap PO BID PRN (Reason: constipation) 0RF melatonin 3 mg tablet 9 mg PO BEDTIME 0RF albuterol sulfate [Ventolin HFA] 90 mcg/actuation HFA aerosol inhaler 2 puff inhalation Q6H PRN (Reason: Shortness Of Breath) 0RF omeprazole 40 mg capsule,delayed release(DR/EC) 1 cap PO DAILY@0630 0RF quetiapine 200 mg tablet 1 tab PO BID 0RF gabapentin 800 mg tablet 1 tab PO TID 0RF trazodone 150 mg tablet 1 tab PO BEDTIME 0RF
[2022-02-14 20:42] LABS: Ethanol < 10 mg/dL
[2022-02-14 20:49] LABS: Acetaminophen LAB < 1 mcg/mL (<30); Salicylate < 5.0 mg/dL (15-30)
[2022-02-14 20:53] LABS: Valproate 21.5 mcg/mL (50.0-100.0)
[2022-02-15 00:02] VITALS: BP 123/79; PULSE 84; RESP 18; TEMP 37.1; O2SAT 95
[2022-02-15] MEDS: traZODone HCL 50 MG TABLET 150 MG PO (00:09)
[2022-02-15] MEDS: Baclofen 10 MG TABLET PO ×2 (00:09→14:17)
[2022-02-15] MEDS: Gabapentin 400 MG CAPSULE 800 MG PO ×2 (00:09→14:17)
[2022-02-15] MEDS: Divalproex Sodium 500 MG TABLET.DR PO ×2 (00:09→14:18)
[2022-02-15] MEDS: Melatonin 3 MG TABLET 9 MG PO (00:10)
[2022-02-15] MEDS: QUEtiapine Fumarate 200 MG TABLET PO (00:10)
[2022-02-15] MEDS: Omeprazole 40 MG CAPSULE.DR PO (05:41)
--- NOTE | 2022-02-15 07:04 | PC.NURSE ---
Patient slept through the night, no distress observed/reported, behavior appropriate and non concerning at this time, medication compliant, CAION assessed the patient, disposition current provider, VSKaren, will continue to monitor.
--- NOTE | 2022-02-15 07:35 | PC.NURSE ---
patient appears to remain asleep at present respirations are even and unlabored patient appears in no distress
[2022-02-15 08:55] VITALS: BP 106/72; PULSE 90; RESP 16; TEMP 36.8; O2SAT 97
--- NOTE | 2022-02-15 13:29 | MHC.CARE ---
Checked in with patient regarding discharge, she asked to have her boyfriend Moustapha ([phone]) called to make sure it was ok with him if she went there. Boyfriend of patient answered the phone and stated that was fine but he needed an hour to take care of something else first.
[2022-02-15] MEDS: amLODIPine Besylate 5 MG TABLET PO (14:18)
== END 2022-02-15 14:59 | disposition home or self-care (01) ==
PROVIDERS: Emergency Provider Internal Medicine
DX: F33.2 Major depressive disorder, recurrent severe without psychotic features (principal); R45.851 Suicidal ideations; G35 Multiple sclerosis; I10 Essential (primary) hypertension; E11.9 Type 2 diabetes mellitus without complications; J45.909 Unspecified asthma, uncomplicated; F17.210 Nicotine dependence, cigarettes, uncomplicated; Z79.899 Other long term (current) drug therapy; Z20.822 Contact with and (suspected) exposure to COVID-19
CPT/HCPCS: 36415; 80143; 80164; 80179; 80307; 81003; 82077; 87635; 99284

== ENCOUNTER 2022-02-23 09:37 | Emergency (ER) | payer OTHER, SELFPAY ==
--- NOTE | ~2022-02-23 | CT_ITS ---
EXAMINATION: CT HEAD WITHOUT CONTRAST (STROKE PROTOCOL) CLINICAL INFORMATION: Stroke protocol. Slurred speech COMPARISON: November 23, 2020 TECHNIQUE: Contiguous axial imaging was performed from the skull base to vertex without intravenous administration of contrast. This CT examination was performed using dose optimization techniques as appropriate, variously including the following: *Automated exposure control *Adjustment of mA and/or kV according to patient size (this includes techniques or standardized protocols for targeted exams where dose is matched to indication/reason for exam; i.e. extremities or head) *Use of iterative reconstruction technique DLP: 811 mGy-cm FINDINGS: There is no intracranial hemorrhage, hematoma, or extra-axial fluid collection. There is prominence of ventricles, sulci, and cisterns consistent with generalized atrophy. There is some periventricular white matter low density consistent with microangiopathy.. There is no acute infarct or mass lesion. The calvarium appears intact. There is no pneumocephalus or orbital emphysema. The visualized sinuses and middle ears and mastoid air cells show no significant mucosal thickening. There are no air-fluid levels. CT/CT head for stroke IMPRESSION: No acute intracranial pathology. Atrophic changes. This critical result was discussed with Dr. Vaughan at 9:58 AM hours on February 23, 2022. It was ascertained that the content and urgency of the report was understood at the time of direct communication.
--- NOTE | ~2022-02-23 | XR_ITS ---
EXAMINATION: XR CHEST CLINICAL INFORMATION: Chest pain COMPARISON: 11/16/2020 TECHNIQUE: Frontal view of the chest was obtained. FINDINGS: No acute finding. Mildly low lung volumes. Mild cephalization of the vasculature.. No effusion. The cardiac silhouette is prominent. The hilar regions do not appear pathologically enlarged. XR/XR chest 1V IMPRESSION: Prominent cardiac silhouette mild cephalization of the vasculature. No overt edema.
[2022-02-23 09:49] LABS: Prothrombin Time Whole Bld POC 13.2 sec (11.1-13.5); ~PT, ~INR - Anti Coag Clinic 1.1 (0.9-1.1)
[2022-02-23 09:50] LABS: Glucose, Whole Blood 88 mg/dL (60-115)
[2022-02-23 09:53] VITALS: BP 151/107; BP 160/102; PULSE 72; PULSE 84; RESP 20; TEMP 36.5; O2SAT 97; O2SAT 99; BMI 39.4
--- NOTE | 2022-02-23 09:54 | ECG_ITS ---
Test Reason : stroke Blood Pressure : / mmHG Vent. Rate : 074 BPM Atrial Rate : 074 BPM P-R Int : 154 ms QRS Dur : 088 ms QT Int : 380 ms P-R-T Axes : 049 -24 004 degrees QTc Int : 421 ms Normal sinus rhythm Minimal voltage criteria for LVH, may be normal variant ( R in aVL ) Nonspecific T wave abnormality Abnormal ECG When compared with ECG of 05-FEB-2022 21:20, Nonspecific ST and T wave abnormality less prominent Referred By: Vinny Vaughan Electronically Signed By:DAVIN BLAKE
--- NOTE | 2022-02-23 09:58 | ED_ITS ---
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 Patient on multiple presentations to this emergency department including in 2018 when she she was given tPA and then she had a normal MRI. She is awake and alert at the arrival neurologic intact. patient states that she has been in a lot of stress right now. Patient at baseline is not ambulatory MD Complaint: generalized weakness Onset (ago): hour(s) (1) Duration: constant Location: generalized Migration: none Severity: moderate Relieving factors: none Exacerbating factors: none Related Data Home Medications Medication Instructions Recorded Confirmed gabapentin 800 mg tablet 1 tab PO TID 02/09/22 02/14/22 omeprazole 40 mg capsule,delayed 1 cap PO DAILY@0630 02/09/22 02/14/22 release quetiapine 200 mg tablet 1 tab PO BID 02/09/22 02/14/22 trazodone 150 mg tablet 1 tab PO BEDTIME 02/09/22 02/14/22 albuterol sulfate 90 mcg/actuation 2 puff INHALATION Q6H PRN 02/10/22 02/14/22 aerosol inhaler (Ventolin HFA) docusate sodium 100 mg capsule 1 cap PO BID PRN 02/10/22 02/14/22 melatonin 3 mg tablet 9 mg PO BEDTIME 02/10/22 02/14/22 Previous Rx's Medication Instructions Recorded amlodipine 5 mg tablet 5 mg PO DAILY 30 Days #30 tab 09/07/21 baclofen 10 mg tablet 10 mg PO TID 30 Days #90 tab 09/07/21 divalproex 500 mg tablet,delayed 500 mg PO BID 30 Days #60 tab 09/07/21 release Allergies Allergy/AdvReac Type Severity Reaction Status Date / Time Iodinated Contrast Media Allergy Severe ANAPHYLAXIS Verified 09/14/21 07:09 [CONTRAST, IV] ibuprofen [From Motrin] Allergy Intermediate SWELLING Verified 09/14/21 07:09 morphine [MORPHINE] Allergy Intermediate RASH Verified 09/14/21 07:09 acetaminophen [From TYLENOL] Allergy Mild HIVES Verified 09/14/21 07:09 bee pollen [Bee Stings] Allergy Mild UNKNOWN Verified 09/14/21 07:09 coconut Allergy Mild HIVES/SWELL Verified 09/14/21 07:09 ING latex [Latex] Allergy Mild HIVES Verified 09/14/21 07:09 NSAIDS (Non-Steroidal Allergy Mild HIVES Verified 09/14/21 07:09 Anti-Inflamma [NSAIDS (NON-STEROIDAL ANTI-INFLAMMA] aspirin [ASA] Allergy Unknown HIVES Verified 09/14/21 07:09 tramadol [TRAMADOL] Allergy Unknown UNKNOWN Verified 09/14/21 07:09 turkey Allergy Unknown UNKNOWN Verified 09/14/21 07:09 lidocaine Allergy Rash Verified 09/14/21 07:09 Peppers, Green Allergy Shortness Verified 09/14/21 07:09 of Breath Peppers, Jalapeno Allergy Shortness Verified 09/14/21 07:09 of Breath Peppers, Red Allergy Shortness Verified 09/14/21 07:09 of Breath Peppers, Yellow Allergy Shortness Verified 09/14/21 07:09 of Breath From Vicodin Allergy Mild RASH Uncoded 06/13/21 20:16 Review of Systems Review of Systems: Yes all other systems are reviewed and are negative Constitutional: Constitutional: Reports no additional constitutional complaints ENT: Reports system reviewed and no additional complaints, except as documented Cardiovascular: Cardiovascular: Reports no additional cardiovascular complaints Respiratory: Respiratory: Reports no additional respiratory complaints Gastrointestinal: Gastrointestinal: Reports no additional gastrointestinal complaints Musculoskeletal: Musculoskeletal: Reports no additional musculoskeletal complaints Psychiatric: Psychiatric: Reports anxiety Endocrine: Endocrine: Reports no additional endocrine complaints [facility] Past Medical History Medical History Alcohol abuse Asthma section wound complication Cocaine abuse Diabetes Fall GERD (gastroesophageal reflux disease) History of seizure Hypertension MDD (major depressive disorder), recurrent episode, severe Multiple sclerosis Multiple sclerosis Multiple sclerosis exacerbation Surgical History History of left ankle joint replacement History of thoracic surgery Social History Social History Household Members: None Housing: Unknown / Unable to assess Housing Other:: hotel Do you presently have visiting nurse or other home services: No Alcohol intake: current Alcohol intake frequency: other Patient Tobacco Use Status: Never used Tobacco Tobacco use type: Cigarette Cigarette Packs Per Day: 0.5 Cigarettes Per Day: 10.0 Years Smoked: 28 e-Cigarette/Vaping Use: Never Used Second Hand Smoke Exposure: Yes Substance Use Type: Crack/Cocaine Advance Directives: Yes Advance Directives on File: Yes Advance Directives Date on File: 08/25/20 service: Yes Current occupational status: unemployed Sexual orientation: Did not discuss Physical Exam Vital Signs: Vital Signs: Last Vital Signs Temp 99.4 F 02/23/22 13:44 Pulse 79 02/23/22 13:44 Resp 14 02/23/22 13:44 BP 131/96 H 02/23/22 13:44 Pulse Ox 98 02/23/22 13:44 BMI result Body Mass Index 39.4 she looks well she is not in distress Const: General: cooperative and comfortable HEENT: Head: Yes normal to inspection General nose exam: Normal external nose present Face and sinus: Yes normal facial exam Mouth: Normal oral and palatal mucosa present Eyes: General: appearance normal, both eyes and all related structures Alignment and Position: alignment normal Pupils: Pupils normal by confrontation EOM: EOMs intact bilaterally Neck: Neck: Yes normal visual inspection, Yes full ROM, Yes no lymphadenopathy and Yes no meningeal signs Lymphatic: no lymphadenopathy noted Chest: Chest palpation & inspection: normal inspection of the chest and normal palpation of entire chest wall Resp: Effort & Inspection: normal respiratory effort and able to speak in complete sentences Auscultation: clear to auscultation bilaterally Percussion: percussion normal Cardio: Jugular venous distension: no JVD Rate: regular rate Rhythm: regular rhythm GI: Inspection: Yes normal to inspection Palpation (GI): Soft to palpation, not firm, nontender and no guarding Auscultation: normal bowel sounds Rectal Exam - Female: visual inspection normal Skin: General skin exam: no rashes or lesions noted, elasticity normal and turgor normal Lesions: no lesions Rashes: no rashes Neuro: General: no meningeal signs Course Reevaluation(s) Reevaluation #1: the workup is essentially negative she had a negative head CT, EKG she is in sinus rhythm a, blood work okay neurologically she is intact I think at this point we could discharge the patient home when she had multiple episodes like this in the past differential diagnosis could be anxiety. She got better with lorazepam in the ED. Time: 13:12 MDM - Weakness Lab Data Attestation: I reviewed the patient's lab results. Result diagrams: 02/23/22 10:15 02/23/22 11:56 Labs: Lab Results 02/23/22 02/23/22 02/23/22 Range/Units 09:44 09:45 10:15 WBC 6.4 (4.8-10.8) X10*3/uL RBC 5.30 (4.20-5.50) X10*6/uL Hgb 12.7 (12.0-16.0) g/dl Hct 42.4 (37.0-47.0) % MCV 80.0 (80.0-98.0) fL MCH 24.0 L (27.0-33.0) pg MCHC 30.0 L (31.0-35.0) g/dl RDW 19.9 H (11.0-16.0) % Plt Count 240 (160-400) X10*3/uL MPV Not Reportable Immature Gran % (Auto) 0.9 H (0.0-0.4) % Neut % (Auto) 61.1 (45-73) % Lymph % (Auto) 29.1 (20-40) % [place] % (Auto) 7.5 (2-11) % Eos % (Auto) 0.9 (0-4) % Baso % (Auto) 0.5 (0-2) % Lymph # (Auto) 1.9 (1.2-4.9) X10*3/uL [place] # (Auto) 0.5 (0.1-1.2) X10*3/uL Eos # (Auto) 0.1 (0.0-0.4) X10*3/uL Baso # (Auto) 0.0 (0.0-0.2) X10*3/uL Abs Immat Gran (auto) 0.06 H (0.00-0.03) X10*3/uL Absolute Neuts (auto) 3.9 (2.0-8.3) x10*3/uL Absolute Nucleated RBC 0.000 (0.0-0.012) X10*3/uL Nucleated RBC % (auto) 0.0 (0.0-0.2) /100WBC Smear Tech's Comments VERIFIED Whole Blood PT 13.2 (11.1-13.5) sec Whole Blood INR 1.1 (0.9-1.1) Sodium (135-145) mmol/L Potassium (3.3-5.1) mmol/L Chloride (96-108) mmol/L Carbon Dioxide (22-29) mmol/L Anion Gap (12-20) BUN (9-16) mg/dL Creatinine (0.5-1.4) mg/dL Estim Creat Clear Calc Estimated GFR POC Glucose 88 (60-115) mg/dL Random Glucose (60-115) mg/dL Calcium (8.4-10.2) mg/dL Total Bilirubin (0.0-1.0) mg/dL AST (5-31) U/L ALT (0-31) U/L Alkaline Phosphatase (39-117) U/L Troponin I High Sens (<3.5-17.0) ng/L Total Protein (6.5-8.0) g/dL Albumin (3.5-5.0) g/dL 02/23/22 02/23/22 Range/Units 10:15 11:56 WBC (4.8-10.8) X10*3/uL RBC (4.20-5.50) X10*6/uL Hgb (12.0-16.0) g/dl Hct (37.0-47.0) % MCV (80.0-98.0) fL MCH (27.0-33.0) pg MCHC (31.0-35.0) g/dl RDW (11.0-16.0) % Plt Count (160-400) X10*3/uL MPV Immature Gran % (Auto) (0.0-0.4) % Neut % (Auto) (45-73) % Lymph % (Auto) (20-40) % [place] % (Auto) (2-11) % Eos % (Auto) (0-4) % Baso % (Auto) (0-2) % Lymph # (Auto) (1.2-4.9) X10*3/uL [place] # (Auto) (0.1-1.2) X10*3/uL Eos # (Auto) (0.0-0.4) X10*3/uL Baso # (Auto) (0.0-0.2) X10*3/uL Abs Immat Gran (auto) (0.00-0.03) X10*3/uL Absolute Neuts (auto) (2.0-8.3) x10*3/uL Absolute Nucleated RBC (0.0-0.012) X10*3/uL Nucleated RBC % (auto) (0.0-0.2) /100WBC Smear Tech's Comments Whole Blood PT (11.1-13.5) sec Whole Blood INR (0.9-1.1) Sodium 136 (135-145) mmol/L Potassium 4.4 (3.3-5.1) mmol/L Chloride 109 H (96-108) mmol/L Carbon Dioxide 19 L (22-29) mmol/L Anion Gap 12 (12-20) BUN 11 D (9-16) mg/dL Creatinine 0.90 (0.5-1.4) mg/dL Estim Creat Clear Calc 112.1 Estimated GFR > 60 POC Glucose (60-115) mg/dL Random Glucose 119 H (60-115) mg/dL Calcium 9.2 (8.4-10.2) mg/dL Total Bilirubin 0.2 (0.0-1.0) mg/dL AST 12 (5-31) U/L ALT 10 (0-31) U/L Alkaline Phosphatase 60 (39-117) U/L Troponin I High Sens < 3.5 (<3.5-17.0) ng/L Total Protein 7.1 (6.5-8.0) g/dL Albumin 4.0 (3.5-5.0) g/dL Imaging Data CT scan - head: Radiologist's impression: FINDINGS: There is no intracranial hemorrhage, hematoma, or extra-axial fluid collection.? There is prominence of ventricles, sulci, and cisterns consistent with generalized atrophy. There is some periventricular white matter low density consistent with microangiopathy.. There is no acute infarct or mass lesion. The calvarium appears intact. There is no pneumocephalus or orbital emphysema.? The visualized sinuses and middle ears and mastoid air cells show no significant mucosal thickening. There are no air-fluid levels. CT/CT head for stroke IMPRESSION: No acute intracranial pathology. ? Atrophic changes. ? This critical result was discussed with Dr. Vaughan at 9:58 AM hours on February 23, 2022. It was ascertained that the content and urgency of the report was understood at the time of direct communication. Dictated By: Karl Choi MD Signed By: <Electronically signed by Karl Choi MD in OV> 02/23/22 1003 DD/ 0949 ECG Data Attestation: I personally reviewed and interpreted this ECG as follows: ECG interpretation date: 02/23/22 Pacemaker model: normal sinus rhythm a rate [address]-T changes Discharge Plan Discharge Clinical Impression: Anxiety Patient Disposition: Home, Self-Care Instructions: Anxiety (ED) Additional Instructions: please call your primary care physician today make a follow-up appointment to be seen in the next couple days. Return to emergency room if you worse Prescriptions: No Action amlodipine 5 mg Tablet 5 mg PO DAILY 30 Days Qty: 30 0RF Protocol: Hold for SBP< HOLD for SBP < : 90 divalproex 500 mg Tablet,Delayed Release (Dr/Ec) 500 mg PO BID 30 Days Qty: 60 0RF baclofen 10 mg Tablet 10 mg PO TID 30 Days Qty: 90 0RF docusate sodium 100 mg capsule 1 cap PO BID PRN (Reason: constipation) 0RF melatonin 3 mg tablet 9 mg PO BEDTIME 0RF albuterol sulfate [Ventolin HFA] 90 mcg/actuation HFA aerosol inhaler 2 puff inhalation Q6H PRN (Reason: Shortness Of Breath) 0RF omeprazole 40 mg capsule,delayed release(DR/EC) 1 cap PO DAILY@0630 0RF quetiapine 200 mg tablet 1 tab PO BID 0RF gabapentin 800 mg tablet 1 tab PO TID 0RF trazodone 150 mg tablet 1 tab PO BEDTIME 0RF Referrals: Physician,None [Primary Care Provider] - 2 days
[2022-02-23 10:28] LABS: Basophils Percent Auto 0.5 % (0-2); Eosinophils Absolute Auto 0.1 X10*3/uL (0.0-0.4); Eosinophils Percent Auto 0.9 % (0-4); Hematocrit 42.4 % (37.0-47.0); Hemoglobin 12.7 g/dl (12.0-16.0); Imm Gran Abs Auto 0.06 X10*3/uL (0.00-0.03); Imm Gran Pct Auto 0.9 % (0.0-0.4); Lymphocytes Absolute Auto 1.9 X10*3/uL (1.2-4.9); Lymphocytes Percent Auto 29.1 % (20-40); MANUAL DIFF FLAG SCAN; Monocytes Absolute Auto 0.5 X10*3/uL (0.1-1.2); Monocytes Percent Auto 7.5 % (2-11); Neutrophils Absolute Auto 3.9 x10*3/uL (2.0-8.3); Neutrophils Percent Auto 61.1 % (45-73); PLT CLUMP 1; Red Cell Distribution Width 19.9 % (11.0-16.0); SCAN SMEAR FLAG 1
[2022-02-23 10:31] LABS: PLT ABN DIST 1; White Blood Count 6.4 X10*3/uL (4.8-10.8)
[2022-02-23 10:41] LABS: Troponin-I High Sensitivity < 3.5 ng/L (<3.5-17.0)
[2022-02-23] MEDS: LORazepam 1 MG TABLET PO (11:04)
[2022-02-23 11:20] LABS: Platelet Count 240 X10*3/uL (160-400)
[2022-02-23 11:21] LABS: SLIDE REVIEW VERIFIED
[2022-02-23 12:18] LABS: Alanine Aminotransferase 10 U/L (0-31); Alkaline Phosphatase 60 U/L (39-117); Anion Gap 12 (12-20); Aspartate Amino Transferase 12 U/L (5-31); Bilirubin Total 0.2 mg/dL (0.0-1.0); Blood Urea Nitrogen 11 mg/dL (9-16); Calcium 9.2 mg/dL (8.4-10.2); Carbon Dioxide 19 mmol/L (22-29); Chloride 109 mmol/L (96-108); Creatinine Clr Calc Pharmacy 112.1; Estimated Glomerular Filt Rate > 60; Glucose Random 119 mg/dL (60-115); Potassium 4.4 mmol/L (3.3-5.1); Sodium 136 mmol/L (135-145); Total Protein 7.1 g/dL (6.5-8.0)
[2022-02-23 13:44] VITALS: BP 131/96; PULSE 79; RESP 14; TEMP 37.4; O2SAT 98
== END 2022-02-23 17:14 | disposition home or self-care (01) ==
PROVIDERS: Emergency Provider Emergency Medicine
DX: F41.9 Anxiety disorder, unspecified (principal); R53.1 Weakness; E11.9 Type 2 diabetes mellitus without complications; I10 Essential (primary) hypertension; G35 Multiple sclerosis; F17.200 Nicotine dependence, unspecified, uncomplicated; Z79.899 Other long term (current) drug therapy
CPT/HCPCS: 36415; 70450; 71045; 80053; 82947; 84484; 85025; 85610; 93005; 99283; 99284

== ENCOUNTER 2022-02-24 20:33 | Emergency (ER) | payer OTHER, SELFPAY ==
--- NOTE | 2022-02-24 | ECG_ITS ---
Test Reason : CHEST PAIN Blood Pressure : / mmHG Vent. Rate : 087 BPM Atrial Rate : 087 BPM P-R Int : 154 ms QRS Dur : 092 ms QT Int : 376 ms P-R-T Axes : 056 -21 049 degrees QTc Int : 452 ms Normal sinus rhythm Minimal voltage criteria for LVH, may be normal variant ( R in aVL ) Possible Anterior infarct , age undetermined Abnormal ECG When compared with ECG of 23-FEB-2022 10:35, No significant change was found Referred By: Generic ED Physician Electronically Signed By:DAVIN BLAKE
[2022-02-24 20:41] VITALS: BP 151/64; PULSE 91; O2SAT 97
--- NOTE | 2022-02-24 20:45 | PC.NURSE ---
pt refusing to have her bloodwork drawn after an unsuccessful attempt by cryptologic technician. pt stated just do it when you do the IV. pt was told that the blood tests are time sensitive. pt understood and refused to have another tech attempt to draw blood
[2022-02-24 20:47] VITALS: BP 154/103; PULSE 87; RESP 16; TEMP 36.8; O2SAT 100; BMI 39.0
[2022-02-24 21:54] VITALS: BP 137/89; PULSE 83; RESP 28; TEMP 36.4; O2SAT 100
--- NOTE | 2022-02-24 21:58 | ED_ITS ---
HPI - Chest Pain General Chief Complaint: Chest Pain Stated Complaint: cp Time Seen by Provider: 02/24/22 20:52 Source: patient Mode of arrival: ambulatory Limitations: no limitations History of Present Illness HPI narrative: 46-year-old female history of PTSD, depression, former polysubstance abuse, personality disorder, MS mostly wheelchair bound. Came in for evaluation of chest pain that started since 12 noon this afternoon, pain has been constant since noon time almost 10 hours now in the mid chest, no radiation, no coughing, no lower extremity swelling, shortness of breath after she cleaned her house wi th chemical detergents. Describes the pain as mid chest, moderate 5/10, no radiation, dull aching pain, increased with exertion, relieved with rest. With patient multiple ED visits for depression and anxiety patient today decline SI or HI or hallucination. Related Data Home Medications Medication Instructions Recorded Confirmed gabapentin 800 mg tablet 1 tab PO TID 02/09/22 02/14/22 omeprazole 40 mg capsule,delayed 1 cap PO DAILY@0630 02/09/22 02/14/22 release quetiapine 200 mg tablet 1 tab PO BID 02/09/22 02/14/22 trazodone 150 mg tablet 1 tab PO BEDTIME 02/09/22 02/14/22 albuterol sulfate 90 mcg/actuation 2 puff INHALATION Q6H PRN 02/10/22 02/14/22 aerosol inhaler (Ventolin HFA) docusate sodium 100 mg capsule 1 cap PO BID PRN 02/10/22 02/14/22 melatonin 3 mg tablet 9 mg PO BEDTIME 02/10/22 02/14/22 Previous Rx's Medication Instructions Recorded amlodipine 5 mg tablet 5 mg PO DAILY 30 Days #30 tab 09/07/21 baclofen 10 mg tablet 10 mg PO TID 30 Days #90 tab 09/07/21 divalproex 500 mg tablet,delayed 500 mg PO BID 30 Days #60 tab 09/07/21 release Allergies Allergy/AdvReac Type Severity Reaction Status Date / Time Iodinated Contrast Media Allergy Severe ANAPHYLAXIS Verified 09/14/21 07:09 [CONTRAST, IV] ibuprofen [From Motrin] Allergy Intermediate SWELLING Verified 09/14/21 07:09 morphine [MORPHINE] Allergy Intermediate RASH Verified 09/14/21 07:09 acetaminophen [From TYLENOL] Allergy Mild HIVES Verified 09/14/21 07:09 bee pollen [Bee Stings] Allergy Mild UNKNOWN Verified 09/14/21 07:09 coconut Allergy Mild HIVES/SWELL Verified 09/14/21 07:09 ING latex [Latex] Allergy Mild HIVES Verified 09/14/21 07:09 NSAIDS (Non-Steroidal Allergy Mild HIVES Verified 09/14/21 07:09 Anti-Inflamma [NSAIDS (NON-STEROIDAL ANTI-INFLAMMA] aspirin [ASA] Allergy Unknown HIVES Verified 09/14/21 07:09 tramadol [TRAMADOL] Allergy Unknown UNKNOWN Verified 09/14/21 07:09 turkey Allergy Unknown UNKNOWN Verified 09/14/21 07:09 lidocaine Allergy Rash Verified 09/14/21 07:09 Peppers, Green Allergy Shortness Verified 09/14/21 07:09 of Breath Peppers, Jalapeno Allergy Shortness Verified 09/14/21 07:09 of Breath Peppers, Red Allergy Shortness Verified 09/14/21 07:09 of Breath Peppers, Yellow Allergy Shortness Verified 09/14/21 07:09 of Breath From Vicodin Allergy Mild RASH Uncoded 06/13/21 20:16 Review of Systems Review of Systems: All other systems are reviewed and are negative Constitutional: Reports as per HPI and Reports no additional constitutional complaints Eyes: Reports as per HPI and Reports no additional eye complaints Reports system reviewed and no additional complaints, except as documented Cardiovascular: Reports as per HPI and Reports no additional cardiovascular complaints Respiratory: Reports as per HPI and Reports no additional respiratory complaints Gastrointestinal: Reports as per HPI and Reports no additional gastrointestinal complaints Genitourinary: Reports no additional female genitourinary complaints Musculoskeletal: Reports no additional musculoskeletal complaints Skin/Breast: Reports system reviewed and no additional complaints, except as docu Psychiatric: Reports no additional psychiatric complaints Endocrine: Reports no additional endocrine complaints Hematologic/Lymphatic: Reports no additional hematologic/lymphatic complaints Allergic/Immunologic: Reports no additional allergic/immunologic complaints Reports system reviewed and no additional complaints, except as documented and Reports Abnormal speech present [facility] Past Medical History Medical History Alcohol abuse Asthma section wound complication Cocaine abuse Diabetes Fall GERD (gastroesophageal reflux disease) History of seizure Hypertension MDD (major depressive disorder), recurrent episode, severe Multiple sclerosis Multiple sclerosis Multiple sclerosis exacerbation Surgical History History of left ankle joint replacement History of thoracic surgery Social History Social History Household Members: None Housing: Unknown / Unable to assess Housing Other:: hotel Do you presently have visiting nurse or other home services: No Alcohol intake: current Alcohol intake frequency: other Patient Tobacco Use Status: Never used Tobacco Tobacco use type: Cigarette Cigarette Packs Per Day: 0.5 Cigarettes Per Day: 10.0 Years Smoked: 28 e-Cigarette/Vaping Use: Never Used Second Hand Smoke Exposure: Yes Substance Use Type: Crack/Cocaine Advance Directives: Yes Advance Directives on File: Yes Advance Directives Date on File: 08/25/20 service: Yes Current occupational status: unemployed Sexual orientation: Did not discuss Physical Exam Vital Signs: Vital Signs: Last Vital Signs Temp 97.7 F 02/25/22 00:00 Pulse 89 02/25/22 00:00 Resp 16 02/25/22 00:00 BP 136/71 02/25/22 00:00 Pulse Ox 99 02/25/22 00:00 BMI result Body Mass Index 39.0 Vital signs have been reviewed as appeared to be correct. Blood pressure normal. Heart rate normal. Respiration rate elevated. Temperature normal. Oxygen saturation normal. Appearance: Alert. Oriented X3. No acute distress. Head: Normal external exam. Normocephalic. Atraumatic. No Banda signs noted. No raccoon eyes noted Eyes: PERRLA. EOMI. Conjunctiva and sclera normal. Eyelids normal. ENT: TM's Normal. Pharynx normal. Uvula midline. Moist mucous membranes. No trismus noted. No drooling noted. No muffled voice noted. Neck: Normal inspection. Neck supple. FROM. No adenopathy. Thyroid Normal. No meningeal signs. No neck mass noted. CVS: Normal heart rate and rhythm. Heart sound normal. No murmurs noted. Pulses normal throughout. Respiratory: No respiratory distress. Painless inspiration. Breath sounds normal. No wheezes/rales/rhonchi noted. Chest nontender. No accessory muscle usage noted or decreased air movement noted. Abdomen: Soft and nontender. Bowel sounds normal in all 4 quadrants. No distention noted. No organomegaly noted. No visible injury noted. Back: No CVA tenderness. Full range of motion noted. Skin: Skin warm and dry. Normal skin color. Normal skin turgor. No rashes/lesions/lacerations noted. Extremities: No lower extremity edema. Extremities exhibit normal range of motion. Extremities nontender. Neuro: Oriented X 3. Cranial nerve exam: II-XII are grossly intact No motor deficit. No sensory deficit. Reflexes normal. Course Course Course Narrative: Assessment and plan. 46-year-old female with multiple past medical history, patient had multiple ED visits for different complains including chest pain in the past and was related to patient's anxiety, patient history and exam in conjunction with today's blood workup cardiac chest pain is not favorable diagnosis. Patient has a minimal wheezing after she smelled chemical detergent when she was cleaning her house feeling better after was given bronchodilator. MDM - Chest Pain Lab Data Attestation: I reviewed the patient's lab results. Result diagrams: 02/24/22 23:58 02/24/22 23:58 Labs: Lab Results 02/24/22 02/24/22 02/24/22 Range/Units 23:58 23:58 23:58 WBC 7.9 (4.8-10.8) X10*3/uL RBC 5.05 (4.20-5.50) X10*6/uL Hgb 12.0 (12.0-16.0) g/dl Hct 39.7 (37.0-47.0) % MCV 78.6 L (80.0-98.0) fL MCH 23.8 L (27.0-33.0) pg MCHC 30.2 L (31.0-35.0) g/dl RDW 19.6 H (11.0-16.0) % Plt Count Not Reportable MPV Not Reportable Immature Gran % (Auto) 0.5 H (0.0-0.4) % Neut % (Auto) 62.3 (45-73) % Lymph % (Auto) 30.7 (20-40) % [place] % (Auto) 5.5 (2-11) % Eos % (Auto) 0.5 (0-4) % Baso % (Auto) 0.5 (0-2) % Lymph # (Auto) 2.4 (1.2-4.9) X10*3/uL [place] # (Auto) 0.4 (0.1-1.2) X10*3/uL Eos # (Auto) 0.0 (0.0-0.4) X10*3/uL Baso # (Auto) 0.0 (0.0-0.2) X10*3/uL Abs Immat Gran (auto) 0.04 H (0.00-0.03) X10*3/uL Absolute Neuts (auto) 4.9 (2.0-8.3) x10*3/uL Absolute Nucleated RBC 0.000 (0.0-0.012) X10*3/uL Nucleated RBC % (auto) 0.0 (0.0-0.2) /100WBC Smear Tech's Comments VERIFIED Sodium 140 (135-145) mmol/L Potassium 3.5 D (3.3-5.1) mmol/L Chloride 108 (96-108) mmol/L Carbon Dioxide 21 L (22-29) mmol/L Anion Gap 15 (12-20) BUN 13 (9-16) mg/dL Creatinine 0.89 (0.5-1.4) mg/dL Estim Creat Clear Calc 112.7 Estimated GFR > 60 Random Glucose 108 (60-115) mg/dL Calcium 9.8 D (8.4-10.2) mg/dL Total Bilirubin 0.2 (0.0-1.0) mg/dL AST 11 (5-31) U/L ALT 9 (0-31) U/L Alkaline Phosphatase 80 D (39-117) U/L Troponin I High Sens < 3.5 (<3.5-17.0) ng/L Total Protein 8.3 H (6.5-8.0) g/dL Albumin 4.5 (3.5-5.0) g/dL ECG Data ECG #1: Attestation: I personally reviewed and interpreted this ECG as follows: Interpretation: Normal sinus rhythm at 87 beats per minute, LVH, left axis deviation, normal intervals, nonspecific ST-Ts changes, no change from previous EKG. Discharge Plan Discharge Clinical Impression: Chest pain, Anxiety Patient Disposition: Home, Self-Care Instructions: Chest Pain (ED) Prescriptions: No Action amlodipine 5 mg Tablet 5 mg PO DAILY 30 Days Qty: 30 0RF Protocol: Hold for SBP< HOLD for SBP < : 90 divalproex 500 mg Tablet,Delayed Release (Dr/Ec) 500 mg PO BID 30 Days Qty: 60 0RF baclofen 10 mg Tablet 10 mg PO TID 30 Days Qty: 90 0RF docusate sodium 100 mg capsule 1 cap PO BID PRN (Reason: constipation) 0RF melatonin 3 mg tablet 9 mg PO BEDTIME 0RF albuterol sulfate [Ventolin HFA] 90 mcg/actuation HFA aerosol inhaler 2 puff inhalation Q6H PRN (Reason: Shortness Of Breath) 0RF omeprazole 40 mg capsule,delayed release(DR/EC) 1 cap PO DAILY@0630 0RF quetiapine 200 mg tablet 1 tab PO BID 0RF gabapentin 800 mg tablet 1 tab PO TID 0RF trazodone 150 mg tablet 1 tab PO BEDTIME 0RF
[2022-02-24] MEDS: Albuterol Sulfate (0.083%) 2.5 MG/3 ML VIAL.NEB INHALE (22:19)
[2022-02-24] MEDS: Albuterol/Iprat 2.5/0.5MG 3 ML AMPUL.NEB INHALE (22:19)
[2022-02-24 22:20] VITALS: PULSE 85; O2SAT 95
[2022-02-24] MEDS: predniSONE 20 MG TABLET 40 MG PO (22:34)
[2022-02-24] MEDS: LORazepam 1 MG TABLET 2 MG PO (23:24)
[2022-02-25] VITALS: BP 136/71; PULSE 89; RESP 16; TEMP 36.5; O2SAT 99
[2022-02-25 00:05] LABS: Mean Corpuscular HGB Conc 30.2 g/dl (31.0-35.0); Neutrophils Absolute Auto 4.9 x10*3/uL (2.0-8.3); SCAN SMEAR FLAG 1
[2022-02-25 00:07] LABS: Basophils Percent Auto 0.5 % (0-2); Eosinophils Percent Auto 0.5 % (0-4); Hematocrit 39.7 % (37.0-47.0); Imm Gran Abs Auto 0.04 X10*3/uL (0.00-0.03); Imm Gran Pct Auto 0.5 % (0.0-0.4); Lymphocytes Absolute Auto 2.4 X10*3/uL (1.2-4.9); Lymphocytes Percent Auto 30.7 % (20-40); MANUAL DIFF FLAG SCAN; Mean Corpuscular Hemoglobin 23.8 pg (27.0-33.0); Mean Corpuscular Volume 78.6 fL (80.0-98.0); Monocytes Absolute Auto 0.4 X10*3/uL (0.1-1.2); Monocytes Percent Auto 5.5 % (2-11); Neutrophils Percent Auto 62.3 % (45-73); Red Blood Count 5.05 X10*6/uL (4.20-5.50); Red Cell Distribution Width 19.6 % (11.0-16.0); White Blood Count 7.9 X10*3/uL (4.8-10.8)
[2022-02-25 00:09] LABS: PLT ABN DIST 1
[2022-02-25 00:25] LABS: Alanine Aminotransferase 9 U/L (0-31); Albumin Level 4.5 g/dL (3.5-5.0); Alkaline Phosphatase 80 U/L (39-117); Anion Gap 15 (12-20); Aspartate Amino Transferase 11 U/L (5-31); Bilirubin Total 0.2 mg/dL (0.0-1.0); Blood Urea Nitrogen 13 mg/dL (9-16); Calcium 9.8 mg/dL (8.4-10.2); Carbon Dioxide 21 mmol/L (22-29); Chloride 108 mmol/L (96-108); Creatinine Clr Calc Pharmacy 112.7; Estimated Glomerular Filt Rate > 60; Glucose Random 108 mg/dL (60-115); Potassium 3.5 mmol/L (3.3-5.1); Sodium 140 mmol/L (135-145); Total Protein 8.3 g/dL (6.5-8.0)
[2022-02-25 00:27] LABS: SLIDE REVIEW VERIFIED
[2022-02-25 00:29] LABS: Troponin-I High Sensitivity < 3.5 ng/L (<3.5-17.0)
== END 2022-02-25 01:11 | disposition home or self-care (01) ==
PROVIDERS: Emergency Provider Emergency Medicine
DX: R07.89 Other chest pain (principal); F33.1 Major depressive disorder, recurrent, moderate; F41.1 Generalized anxiety disorder; F43.0 Acute stress reaction; F17.210 Nicotine dependence, cigarettes, uncomplicated; Z79.899 Other long term (current) drug therapy; Z71.6 Tobacco abuse counseling
CPT/HCPCS: 36415; 80053; 84484; 85025; 93005; 94640; 99283; 99284

== ENCOUNTER 2022-03-05 17:32 | Inpatient (IN) | payer OTHER, SELFPAY ==
--- NOTE | ~2022-03-05 | CT_ITS ---
EXAMINATION: CT HEAD WITHOUT CONTRAST CLINICAL INFORMATION: Biliary vision, MS COMPARISON: 02/23/2022 TECHNIQUE: Contiguous axial imaging was performed from the skull base to vertex without intravenous administration of contrast. This CT examination was performed using dose optimization techniques as appropriate, variously including the following: *Automated exposure control *Adjustment of mA and/or kV according to patient size (this includes techniques or standardized protocols for targeted exams where dose is matched to indication/reason for exam; i.e. extremities or head) *Use of iterative reconstruction technique DLP: 682 mGy-cm FINDINGS: There is no evidence of acute intracranial hemorrhage or territorial infarction. No abnormal mass effect or midline shift is seen. [place] to white matter differentiation is well preserved. No extra-axial fluid collections are identified. The ventricles are normal in size. There is moderate periventricular white matter hypoattenuation consistent with history of demyelinating disease. Moderate volume loss is noted. The osseous structures and soft tissues are normal. The mastoid air cells and visualized portions of the paranasal sinuses are well aerated. CT/CT head/brain wo con IMPRESSION: No acute intracranial pathology.
[2022-03-05 17:52] VITALS: BP 120/78; PULSE 86; RESP 20; TEMP 36.9; O2SAT 100
--- NOTE | 2022-03-05 19:40 | PC.NURSE ---
Called pt for triage in waiting room. No response.
[2022-03-05 19:51] VITALS: BP 164/98; PULSE 84; RESP 16; TEMP 36.8; O2SAT 100; BMI 37.7
--- NOTE | 2022-03-05 20:12 | PC.NURSE ---
Pt stated she did not want to be poked in triage for labs. Pt said she wanted to wait for her IV.
[2022-03-05 23:34] VITALS: BP 117/68; PULSE 75; RESP 18; O2SAT 96
--- NOTE | 2022-03-05 23:50 | ED.GENADULT ---
HPI - General Adult General Chief complaint: Weakness Stated complaint: nausea, weakness Time Seen by Provider: 03/05/22 17:36 Source: patient and EMS Mode of arrival: EMS Limitations: no limitations History of Present Illness HPI narrative: 46 y/o female with history of PTSD, depression, hx polysubstance abuse now 15 months sober, personality disorder, MS wheelchair bound who is presenting with complaints of dizziness described as vertigo, bilateral blurred vision, frequent falls at home 2 in the past three days with headstrike and one episode of lOC, weakness, urinary and stool incontinence. Patient tells me that this has been going on for a few days, around three days. She tells me she decided to come in today be she is feeling very weak and her vision is worrying her. She tells me usually she has right sided blurred vision but never bilateral. She lives at home with her who takes care of her however he is a disabled vet. She denies chest pain, shortness breath, fevers, chills, nausea, vomiting, diarrhea, back pain. Onset (ago): day(s) (3) Radiation: non-radiation Severity: moderate Relieving factors: none Exacerbating factors: none Associated symptoms: weakness Treatments prior to arrival: none Related Data Home Medications Medication Instructions Recorded Confirmed gabapentin 800 mg tablet 1 tab PO TID 02/09/22 02/14/22 omeprazole 40 mg capsule,delayed 1 cap PO DAILY@0630 02/09/22 02/14/22 release quetiapine 200 mg tablet 1 tab PO BID 02/09/22 02/14/22 trazodone 150 mg tablet 1 tab PO BEDTIME 02/09/22 02/14/22 albuterol sulfate 90 mcg/actuation 2 puff INHALATION Q6H PRN 02/10/22 02/14/22 aerosol inhaler (Ventolin HFA) docusate sodium 100 mg capsule 1 cap PO BID PRN 02/10/22 02/14/22 melatonin 3 mg tablet 9 mg PO BEDTIME 02/10/22 02/14/22 Previous Rx's Medication Instructions Recorded amlodipine 5 mg tablet 5 mg PO DAILY 30 Days #30 tab 09/07/21 baclofen 10 mg tablet 10 mg PO TID 30 Days #90 tab 09/07/21 divalproex 500 mg tablet,delayed 500 mg PO BID 30 Days #60 tab 09/07/21 release Allergies Allergy/AdvReac Type Severity Reaction Status Date / Time Iodinated Contrast Media Allergy Severe ANAPHYLAXIS Verified 09/14/21 07:09 [CONTRAST, IV] ibuprofen [From Motrin] Allergy Intermediate SWELLING Verified 09/14/21 07:09 morphine [MORPHINE] Allergy Intermediate RASH Verified 09/14/21 07:09 acetaminophen [From TYLENOL] Allergy Mild HIVES Verified 09/14/21 07:09 bee pollen [Bee Stings] Allergy Mild UNKNOWN Verified 09/14/21 07:09 coconut Allergy Mild HIVES/SWELL Verified 09/14/21 07:09 ING latex [Latex] Allergy Mild HIVES Verified 09/14/21 07:09 NSAIDS (Non-Steroidal Allergy Mild HIVES Verified 09/14/21 07:09 Anti-Inflamma [NSAIDS (NON-STEROIDAL ANTI-INFLAMMA] aspirin [ASA] Allergy Unknown HIVES Verified 09/14/21 07:09 tramadol [TRAMADOL] Allergy Unknown UNKNOWN Verified 09/14/21 07:09 turkey Allergy Unknown UNKNOWN Verified 09/14/21 07:09 lidocaine Allergy Rash Verified 09/14/21 07:09 Peppers, Green Allergy Shortness Verified 09/14/21 07:09 of Breath Peppers, Jalapeno Allergy Shortness Verified 09/14/21 07:09 of Breath Peppers, Red Allergy Shortness Verified 09/14/21 07:09 of Breath Peppers, Yellow Allergy Shortness Verified 09/14/21 07:09 of Breath From Vicodin Allergy Mild RASH Uncoded 06/13/21 20:16 Review of Systems Review of Systems: Constitutional : No Weight loss, No Fever, No Chills, No Fatigue, No Malaise ENT/Mouth : No sore throat, No Rhinorrhea, + blurred vission Eyes: No Eye Pain, No Swelling, No Redness Cardiovascular : No Chest Pain, No SOB, No Dyspnea on Exertion, No Orthopnea, No Edema, No Palpitations Respiratory : No Cough, No Sputum, No Wheezing Gastrointestinal : No Nausea, No Vomiting, No Diarrhea, No Constipation, No abdominal Pain, No Hematochezia, No Melena Genitourinary : No Dysuria, No Urinary Frequency, No Hematuria, + urinary incontinence Musculoskeletal : No joint pain, No Myalgias, No Joint Swelling Skin : No Skin Lesions, No rash Neuro : No Weakness, No Numbness, + Dizziness, No Headache Psych : No Anxiety/Panic, No Depression All other systems reviewed and are negative Yes all other systems are reviewed and are negative PENDING SALE TO [facility] Past Medical History Attestation statement: The following information was validated with the patient. Source: old records reviewed and nursing notes reviewed Medical History Alcohol abuse Asthma section wound complication Cocaine abuse Diabetes Fall GERD (gastroesophageal reflux disease) History of seizure Hypertension MDD (major depressive disorder), recurrent episode, severe Multiple sclerosis Multiple sclerosis Multiple sclerosis exacerbation Surgical History History of left ankle joint replacement History of thoracic surgery Social History Social History Household Members: None Housing: Unknown / Unable to assess Housing Other:: hotel Do you presently have visiting nurse or other home services: No Alcohol intake: never Patient Tobacco Use Status: Never used Tobacco Tobacco use type: Cigarette Cigarette Packs Per Day: 0.5 Cigarettes Per Day: 10.0 Years Smoked: 28 e-Cigarette/Vaping Use: Never Used Second Hand Smoke Exposure: Yes Use of substances other than those prescribed or required for medical reasons: No Substance Use Type: Crack/Cocaine Advance Directives: Yes Advance Directives on File: Yes Advance Directives Date on File: 08/25/20 Patient : No service: Yes Current occupational status: unemployed Sexual orientation: Did not discuss Physical Exam ED Vital Signs: Vital Signs - 24 hr 03/05/22 17:52 03/05/22 19:51 03/05/22 23:34 Temperature 98.4 F 98.3 F Pulse Rate 86 84 75 Respiratory Rate 20 16 18 Blood Pressure 120/78 164/98 H 117/68 Pulse Oximetry 100 100 96 03/06/22 03:24 Temperature Pulse Rate 81 Respiratory Rate 18 Blood Pressure 130/74 Pulse Oximetry 97 BMI result Body Mass Index 37.7 vss Appearance: Alert.? Oriented X3.? No acute distress.? Head: Normocephalic, atraumatic, no step-offs or deformities Eyes: Pupils equal, round and reactive to light.? ENT: Pharynx normal.? Neck: Normal inspection.? Neck supple.? CVS: Normal heart rate and rhythm.? Pulses normal.? Respiratory: No respiratory distress.? Breath sounds normal.? Abdomen: Soft and nontender.? Skin: Skin warm and dry.? Normal skin color.? Normal skin turgor.? Extremities: No lower extremity edema.? No calf ttp. 5/5 strength to bilateral upper and lower extremities Back: No midline tenderness, no C-spine tenderness, full range of motion, no CVA tenderness bilaterally Neuro: Oriented X 3.? No motor deficit.? No sensory deficit. CN 2-12 intact . Normal [id number], [id number]. Course Reevaluation(s) Reevaluation #1: labs appear to be at baseline, CRP slightly elevated, symptoms concerning for an MS flare will treat with solu-medrol for MS flare. CT unremarkable. Discussed this case with who recommended the solu-medrol and hospital admission. Will speak to hospitalist for admission. Time: 01:34 Reevaluation #2: Hospitalist would like to examine patient prior to admission, therefore sign out given to . Time: 04:24 Medical Decision Making [facility] Narrative Medical decision making narrative: [id number] 46-year-old female presents with dizziness, weakness, multiple falls, blurred vision, urinary and stool incontinence. Denies back pain or any red flag symptoms, not an IV drug abuser, unlikely that this is epidural abscess or cauda equina. Physical examination w/ diffuse weakness, no focal neuro deficits. Complaining of right shoulder pain however full range of motion. Unlikley posterior stroke, likley MS flare Upon chart review it appears as though this is not the 1st time that patient complains of urinary incontinence, she was complaining of urinary incontinence on 06/20/2021. Plan at this time basic labs. Medical Records Medical records reviewed: Yes I reviewed the patient's medical records. Lab Data Result diagrams: 03/05/22 23:57 03/05/22 23:57 Labs: Lab Results 03/05/22 03/05/22 03/05/22 Range/Units 23:57 23:57 23:57 WBC 7.6 (4.8-10.8) X10*3/uL RBC 4.18 L (4.20-5.50) X10*6/uL Hgb 10.1 L (12.0-16.0) g/dl Hct 32.7 L (37.0-47.0) % MCV 78.2 L (80.0-98.0) fL MCH 24.2 L (27.0-33.0) pg MCHC 30.9 L (31.0-35.0) g/dl RDW 19.4 H (11.0-16.0) % Plt Count 220 (160-400) X10*3/uL MPV TNP Immature Gran % (Auto) 0.7 H (0.0-0.4) % Neut % (Auto) 60.1 (45-73) % Lymph % (Auto) 31.7 (20-40) % [place] % (Auto) 5.3 (2-11) % Eos % (Auto) 1.7 (0-4) % Baso % (Auto) 0.5 (0-2) % Lymph # (Auto) 2.4 (1.2-4.9) X10*3/uL [place] # (Auto) 0.4 (0.1-1.2) X10*3/uL Eos # (Auto) 0.1 (0.0-0.4) X10*3/uL Baso # (Auto) 0.0 (0.0-0.2) X10*3/uL Abs Immat Gran (auto) 0.05 H (0.00-0.03) X10*3/uL Absolute Neuts (auto) 4.6 (2.0-8.3) x10*3/uL Absolute Nucleated RBC 0.000 (0.0-0.012) X10*3/uL Nucleated RBC % (auto) 0.0 (0.0-0.2) /100WBC ESR 10 (0-20) MM/HR Sodium 138 (135-145) mmol/L Potassium 3.9 (3.3-5.1) mmol/L Chloride 108 (96-108) mmol/L Carbon Dioxide 22 (22-29) mmol/L Anion Gap 12 (12-20) BUN 11 (9-16) mg/dL Creatinine 0.84 (0.5-1.4) mg/dL Estim Creat Clear Calc 117.3 Estimated GFR > 60 Random Glucose TNP Fasting Glucose 102 H (60-99) mg/dL Calcium 9.3 (8.4-10.2) mg/dL Magnesium 1.9 (1.6-2.6) mg/dL Total Bilirubin 0.2 (0.0-1.0) mg/dL AST 10 (5-31) U/L ALT 9 (0-31) U/L Alkaline Phosphatase 64 (39-117) U/L C-Reactive Protein 1.96 H (< or = 0.50) mg/dL Total Protein 6.8 (6.5-8.0) g/dL Albumin 3.8 (3.5-5.0) g/dL Valproic Acid 3.3 L (50.0-100.0) mcg/mL COVID-19 (BRENDA) (Negative) COVID-19 Clin Com 03/06/22 Range/Units 00:21 WBC (4.8-10.8) X10*3/uL RBC (4.20-5.50) X10*6/uL Hgb (12.0-16.0) g/dl Hct (37.0-47.0) % MCV (80.0-98.0) fL MCH (27.0-33.0) pg MCHC (31.0-35.0) g/dl RDW (11.0-16.0) % Plt Count (160-400) X10*3/uL MPV Immature Gran % (Auto) (0.0-0.4) % Neut % (Auto) (45-73) % Lymph % (Auto) (20-40) % [place] % (Auto) (2-11) % Eos % (Auto) (0-4) % Baso % (Auto) (0-2) % Lymph # (Auto) (1.2-4.9) X10*3/uL [place] # (Auto) (0.1-1.2) X10*3/uL Eos # (Auto) (0.0-0.4) X10*3/uL Baso # (Auto) (0.0-0.2) X10*3/uL Abs Immat Gran (auto) (0.00-0.03) X10*3/uL Absolute Neuts (auto) (2.0-8.3) x10*3/uL Absolute Nucleated RBC (0.0-0.012) X10*3/uL Nucleated RBC % (auto) (0.0-0.2) /100WBC ESR (0-20) MM/HR Sodium (135-145) mmol/L Potassium (3.3-5.1) mmol/L Chloride (96-108) mmol/L Carbon Dioxide (22-29) mmol/L Anion Gap (12-20) BUN (9-16) mg/dL Creatinine (0.5-1.4) mg/dL Estim Creat Clear Calc Estimated GFR Random Glucose Fasting Glucose (60-99) mg/dL Calcium (8.4-10.2) mg/dL Magnesium (1.6-2.6) mg/dL Total Bilirubin (0.0-1.0) mg/dL AST (5-31) U/L ALT (0-31) U/L Alkaline Phosphatase (39-117) U/L C-Reactive Protein (< or = 0.50) mg/dL Total Protein (6.5-8.0) g/dL Albumin (3.5-5.0) g/dL Valproic Acid (50.0-100.0) mcg/mL COVID-19 (BRENDA) Negative (Negative) COVID-19 Clin Com See Note Critical Care Time Critical Care Time Critical Care Time: No Discharge Plan Discharge Clinical Impression: Multiple sclerosis, Weakness, Fall Patient Disposition: Still a Patient Prescriptions: No Action amlodipine 5 mg Tablet 5 mg PO DAILY 30 Days Qty: 30 0RF Protocol: Hold for SBP< HOLD for SBP < : 90 divalproex 500 mg Tablet,Delayed Release (Dr/Ec) 500 mg PO BID 30 Days Qty: 60 0RF baclofen 10 mg Tablet 10 mg PO TID 30 Days Qty: 90 0RF docusate sodium 100 mg capsule 1 cap PO BID PRN (Reason: constipation) 0RF melatonin 3 mg tablet 9 mg PO BEDTIME 0RF albuterol sulfate [Ventolin HFA] 90 mcg/actuation HFA aerosol inhaler 2 puff inhalation Q6H PRN (Reason: Shortness Of Breath) 0RF omeprazole 40 mg capsule,delayed release(DR/EC) 1 cap PO DAILY@0630 0RF quetiapine 200 mg tablet 1 tab PO BID 0RF gabapentin 800 mg tablet 1 tab PO TID 0RF trazodone 150 mg tablet 1 tab PO BEDTIME 0RF
[2022-03-06 00:06] LABS: Hemoglobin 10.1 g/dl (12.0-16.0); Lymphocytes Percent Auto 31.7 % (20-40); Neutrophils Absolute Auto 4.6 x10*3/uL (2.0-8.3); PLT ABN DIST 1; SCAN SMEAR FLAG 1
[2022-03-06 00:08] LABS: Basophils Percent Auto 0.5 % (0-2); Eosinophils Absolute Auto 0.1 X10*3/uL (0.0-0.4); Eosinophils Percent Auto 1.7 % (0-4); Hematocrit 32.7 % (37.0-47.0); Imm Gran Abs Auto 0.05 X10*3/uL (0.00-0.03); Imm Gran Pct Auto 0.7 % (0.0-0.4); Lymphocytes Absolute Auto 2.4 X10*3/uL (1.2-4.9); Mean Corpuscular HGB Conc 30.9 g/dl (31.0-35.0); Mean Corpuscular Hemoglobin 24.2 pg (27.0-33.0); Mean Corpuscular Volume 78.2 fL (80.0-98.0); Monocytes Absolute Auto 0.4 X10*3/uL (0.1-1.2); Monocytes Percent Auto 5.3 % (2-11); Neutrophils Percent Auto 60.1 % (45-73); Platelet Count 220 X10*3/uL (160-400); Red Blood Count 4.18 X10*6/uL (4.20-5.50); Red Cell Distribution Width 19.4 % (11.0-16.0); White Blood Count 7.6 X10*3/uL (4.8-10.8)
[2022-03-06 00:10] LABS: MANUAL DIFF FLAG NO
[2022-03-06 00:22] LABS: Alanine Aminotransferase 9 U/L (0-31); Albumin Level 3.8 g/dL (3.5-5.0); Alkaline Phosphatase 64 U/L (39-117); Anion Gap 12 (12-20); Aspartate Amino Transferase 10 U/L (5-31); Bilirubin Total 0.2 mg/dL (0.0-1.0); Blood Urea Nitrogen 11 mg/dL (9-16); C Reactive Protein 1.96 mg/dL (< or = 0.50); Calcium 9.3 mg/dL (8.4-10.2); Carbon Dioxide 22 mmol/L (22-29); Chloride 108 mmol/L (96-108); Creatinine Clr Calc Pharmacy 117.3; Estimated Glomerular Filt Rate > 60; Glucose Fasting 102 mg/dL (60-99); Magnesium 1.9 mg/dL (1.6-2.6); Potassium 3.9 mmol/L (3.3-5.1); Sodium 138 mmol/L (135-145); Total Protein 6.8 g/dL (6.5-8.0)
[2022-03-06 00:30] LABS: Valproate 3.3 mcg/mL (50.0-100.0)
[2022-03-06 00:54] LABS: COVID-19 Test Negative (Negative); IDNOW Serial# 55D5AD1C
[2022-03-06 01:06] LABS: Erythrocyte Sedimentation Rate 10 MM/HR (0-20)
[2022-03-06] MEDS: Meclizine HCl 25 MG TABLET PO (02:55)
[2022-03-06 03:24] VITALS: BP 130/74; PULSE 81; RESP 18; O2SAT 97
[2022-03-06 06:31] VITALS: BP 128/82; PULSE 81; RESP 16; O2SAT 97
--- NOTE | 2022-03-06 09:29 | P.HPHOSP_ITS ---
History of Present Illness Date of Service: 03/06/22 Chief Complaint: weakness ? MS flare 46/F questionable MS diagnosis--doesn't see a neurologist and not on any disease modifying agents, she has been seen here freqquently with ? MS flare that usually resolved on its own, last time she was assessed by Dr Chan and recommended MRI she refused. Additionally medical history of bipolar disorder depressive type, borderline personality disorder, anxiety, history of polysubstance abuse with cocaine and alcohol, history of PTSD, history of CVA with residual right-sided weakness, history of multiple sclerosis, history of seizures, KRISTY, hypertension and acid reflux. Of note was admitted and discharged from [facility] from 03/01 to 03/02 with complaint of chest pain. she is admitted to inpatient Psych very frequently--her last admission here in Psych was august last year. She presents here on this occasion stating she has MS flare--with dizziness, blury vision. She is givin IV Solumedrol and says she feels better now. PMHx Borderline Personality Disorder (F60.3) Multiple sclerosis; prior to 2007 (G35) Severe obesity (E66.01) Cocaine abuse (F14.10) Bipolar disorder (F31.9) Care Management [facility], [facility] [phone] (Z78.9) Borderline Personality Disorder Cocaine abuse Foot pain, bilateral GERD - Gastro-esophageal reflux disease Hypertension Multiple sclerosis; prior to 2007 Onychomycosis of toenail Post-traumatic stress disorder (PTSD) h/o left ankle fx h/o partial hysterectomy Review of Systems Review of Systems: Gen: no fever Resp: no sob, no cough CV: no chest, no GUERRERO, no leg edema GI: No n/v, no abd pain Neuro: No confusion [facility]LY [facility], [facility] Medical History Alcohol abuse Asthma section wound complication Cocaine abuse Diabetes Fall GERD (gastroesophageal reflux disease) History of seizure Hypertension MDD (major depressive disorder), recurrent episode, severe Multiple sclerosis Multiple sclerosis Multiple sclerosis exacerbation Surgical History History of left ankle joint replacement History of thoracic surgery Social History Household Members: None Housing: Unknown / Unable to assess Housing Other:: hotel Do you presently have visiting nurse or other home services: No Alcohol intake: never Patient Tobacco Use Status: Never used Tobacco Tobacco use type: Cigarette Cigarette Packs Per Day: 0.5 Cigarettes Per Day: 10.0 Years Smoked: 28 e-Cigarette/Vaping Use: Never Used Second Hand Smoke Exposure: Yes Use of substances other than those prescribed or required for medical reasons: No Substance Use Type: Crack/Cocaine Advance Directives: Yes Advance Directives on File: Yes Advance Directives Date on File: 08/25/20 Patient : No service: Yes Current occupational status: unemployed Sexual orientation: Did not discuss Meds Allergies Allergy/AdvReac Type Severity Reaction Status Date / Time Iodinated Contrast Media Allergy Severe ANAPHYLAXIS Verified 09/14/21 07:09 [CONTRAST, IV] ibuprofen [From Motrin] Allergy Intermediate SWELLING Verified 09/14/21 07:09 morphine [MORPHINE] Allergy Intermediate RASH Verified 09/14/21 07:09 acetaminophen [From TYLENOL] Allergy Mild HIVES Verified 09/14/21 07:09 bee pollen [Bee Stings] Allergy Mild UNKNOWN Verified 09/14/21 07:09 coconut Allergy Mild HIVES/SWELL Verified 09/14/21 07:09 ING latex [Latex] Allergy Mild HIVES Verified 09/14/21 07:09 NSAIDS (Non-Steroidal Allergy Mild HIVES Verified 09/14/21 07:09 Anti-Inflamma [NSAIDS (NON-STEROIDAL ANTI-INFLAMMA] aspirin [ASA] Allergy Unknown HIVES Verified 09/14/21 07:09 tramadol [TRAMADOL] Allergy Unknown UNKNOWN Verified 09/14/21 07:09 turkey Allergy Unknown UNKNOWN Verified 09/14/21 07:09 lidocaine Allergy Rash Verified 09/14/21 07:09 Peppers, Green Allergy Shortness Verified 09/14/21 07:09 of Breath Peppers, Jalapeno Allergy Shortness Verified 09/14/21 07:09 of Breath Peppers, Red Allergy Shortness Verified 09/14/21 07:09 of Breath Peppers, Yellow Allergy Shortness Verified 09/14/21 07:09 of Breath From Vicodin Allergy Mild RASH Uncoded 06/13/21 20:16 Active Medications: Current Medications Pharmacy Consult (Consult Rx Perform Med Rec) 1 each MISCELLANE ONCE STA Stop: 03/06/22 06:52 Home Medications Medication Instructions Recorded Confirmed Last Taken Type gabapentin 800 mg tablet 1 tab PO TID 02/09/22 03/06/22 Unknown History quetiapine 200 mg tablet 1 tab PO BID 02/09/22 03/06/22 Unknown History albuterol sulfate 90 mcg/actuation 2 puff INHALATION Q6H PRN 02/10/22 03/06/22 Unknown History aerosol inhaler (Ventolin HFA) baclofen 10 mg tablet 5 mg PO TID 03/06/22 03/06/22 Unknown History pantoprazole 40 mg tablet,delayed 1 tab PO DAILY 03/06/22 03/06/22 Unknown History release trazodone 150 mg tablet 1 tab PO BEDTIME 03/06/22 03/06/22 Unknown History Physical Exam Vital Signs and Narrative: Vital Signs: Last Vital Signs Temp 98.3 F 03/05/22 19:51 Pulse 81 03/06/22 06:31 Resp 16 03/06/22 06:31 BP 128/82 03/06/22 06:31 Pulse Ox 97 03/06/22 06:31 BMI result Body Mass Index 37.7 Const: Other: Constitutional: Alert, in no distress, overweight. Mental Status: Oriented to person, place and time. Eyes: Pupils are equal, round and reactive to light. Ear, Nose and Throat: Oropharynx clear, mucous membranes moist. Ears and nose without eformities. Trachea midline. Respiratory: Clear to auscultation. No wheezing, rales or rhonchi. Cardiovascular: S1 S2 regular. No murmurs, rubs or gallops. Gastrointestinal: Abdomen soft, non-tender, non-distended. Normal bowel sounds.? Neurologic: Cranial nerves II-XII grossly intact. No focal neurological deficits. Moves all extremities spontaneously.? Skin: No rashes or lesions.? Musculoskeletal: No cyanosis or clubbing. Psychiatric: Normal mood and affect? Results Labs CBC and Chem 7: 03/05/22 23:57 03/05/22 23:57 Labs: Laboratory Results - last 24 hr 03/05/22 03/05/22 03/05/22 23:57 23:57 23:57 MCV 78.2 L MCH 24.2 L MCHC 30.9 L RDW 19.4 H Plt Count 220 MPV TNP Immature Gran % (Auto) 0.7 H Neut % (Auto) 60.1 Lymph % (Auto) 31.7 [place] % (Auto) 5.3 Eos % (Auto) 1.7 Baso % (Auto) 0.5 Lymph # (Auto) 2.4 [place] # (Auto) 0.4 Eos # (Auto) 0.1 Baso # (Auto) 0.0 Abs Immat Gran (auto) 0.05 H Absolute Neuts (auto) 4.6 Absolute Nucleated RBC 0.000 Nucleated RBC % (auto) 0.0 ESR 10 Anion Gap 12 Estim Creat Clear Calc 117.3 Estimated GFR > 60 Random Glucose TNP Fasting Glucose 102 H Calcium 9.3 Magnesium 1.9 Total Bilirubin 0.2 AST 10 ALT 9 Alkaline Phosphatase 64 C-Reactive Protein 1.96 H Total Protein 6.8 Albumin 3.8 Valproic Acid 3.3 L COVID-19 (BRENDA) COVID-19 Clin Com 03/06/22 00:21 MCV MCH MCHC RDW Plt Count MPV Immature Gran % (Auto) Neut % (Auto) Lymph % (Auto) [place] % (Auto) Eos % (Auto) Baso % (Auto) Lymph # (Auto) [place] # (Auto) Eos # (Auto) Baso # (Auto) Abs Immat Gran (auto) Absolute Neuts (auto) Absolute Nucleated RBC Nucleated RBC % (auto) ESR Anion Gap Estim Creat Clear Calc Estimated GFR Random Glucose Fasting Glucose Calcium Magnesium Total Bilirubin AST ALT Alkaline Phosphatase C-Reactive Protein Total Protein Albumin Valproic Acid COVID-19 (BRENDA) Negative COVID-19 Clin Com See Note Imaging Radiologist's Impressions: Impressions Head CT 03/06/22 01:15 IMPRESSION: No acute intracranial pathology. Assessment and Plan (1) Weakness: Status: Acute (2) Post traumatic stress disorder (PTSD): Status: Acute (3) Cocaine abuse: Status: Chronic Plan 46/F questionable MS diagnosis--doesn't see a neurologist and not on any disease modifying agents, she has been seen here freqquently with ? MS flare that usually resolved on its own, last time she was assessed by Dr Chan and recommended MRI she refused. Additionally medical history of bipolar disorder depressive type, borderline personality disorder, anxiety, history of polysubstance abuse with cocaine and alcohol, history of PTSD, history of CVA wi th residual right-sided weakness, history of multiple sclerosis, history of seizures, KRISTY, hypertension and acid reflux. Of note was admitted and discharged from [facility] from 03/01 to 03/02 with complaint of chest pain. she is admitted to inpatient Psych very frequently--her last admission here in Psych was august last year. She presents here on this occasion stating she has MS flare--with dizziness, blury vision. She is givin IV Solumedrol and says she feels better now. 1/? MS flare--given IV solumedrol, she's not disease modifying agents and is not followed b a neurologist, her diagnosis is not well established. -will get Neurology to assess her for need to continue IV steroid 2/Psych issues, continue meds, Quality Stroke Does the patient have a stroke diagnosis?: No VTE Prior VTE?: No VTE Risk Level:: Medical - moderate - high VTE Device Contraindication: Treatment Not Indicated VTE Drug Contraindication: N/A - Med Ordered
--- NOTE | 2022-03-06 10:32 | PHA.MEDREC ---
Pharmacy Consult ? Medication Reconciliation Pharmacy has completed the medication reconciliation. Patient would not wake up. Med rec completed by claim history. Constanza Garcia, JuliaD
[2022-03-06] MEDS: amLODIPine Besylate 5 MG TABLET PO (11:18)
[2022-03-06] MEDS: oxyCODONE HCl Immed Release 5 MG TABLET PO ×3 (11:24→22:24)
--- NOTE | 2022-03-06 12:51 | PC.NURSE ---
iv was not started in the main ED, she refused all labs and is a difficult stick . Provider in the main ED did not attempt to start her IV.
[2022-03-06] MEDS: Baclofen 10 MG TABLET 5 MG PO ×2 (15:43→21:17)
[2022-03-06] MEDS: Gabapentin 400 MG CAPSULE 800 MG PO ×2 (15:43→21:17)
--- NOTE | 2022-03-06 16:02 | PC.NURSE ---
Paged Dr. Nair iv solumedrol ordered patient does not have iv line. Hard stick. awaiting a response
[2022-03-06 17:51] VITALS: BP 125/63; PULSE 80; RESP 18; TEMP 36.6; O2SAT 98
[2022-03-06] MEDS: diphenhydrAMINE HCL 25 MG TABLET PO (18:57)
[2022-03-06] MEDS: Melatonin 3 MG TABLET 6 MG PO (21:16)
[2022-03-06] MEDS: Divalproex Sodium 500 MG TABLET.DR PO (21:17)
[2022-03-06] MEDS: QUEtiapine Fumarate 200 MG TABLET PO (21:17)
--- NOTE | 2022-03-06 21:40 | PC.NURSE ---
Have tried multiple times to get an iv by 2 RN's myself and Nancy. Patient is a hard stick. MD aware unable to give iv solumedrol.
[2022-03-07] VITALS (8 sets, daily range): BP systolic 117–155; BP diastolic 71–89; PULSE 67–104; RESP 16–18; TEMP 36.1–36.8; O2SAT 95–99; BMI 37.7
[2022-03-07] MEDS: Omeprazole 20 MG CAPSULE.DR PO (06:36)
[2022-03-07] MEDS: oxyCODONE HCl Immed Release 5 MG TABLET PO ×4 (06:38→22:04)
[2022-03-07] MEDS: Baclofen 10 MG TABLET 5 MG PO ×3 (09:29→20:31)
[2022-03-07] MEDS: Gabapentin 400 MG CAPSULE 800 MG PO ×3 (09:31→20:31)
[2022-03-07] MEDS: Divalproex Sodium 500 MG TABLET.DR PO ×2 (09:32→20:31)
[2022-03-07] MEDS: amLODIPine Besylate 5 MG TABLET PO (09:32)
[2022-03-07] MEDS: QUEtiapine Fumarate 200 MG TABLET PO ×2 (09:32→20:31)
[2022-03-07] MEDS: 0.9 % Sodium Chloride Flush 3 ML SYRINGE IVFLUSH ×3 (09:33→20:32)
[2022-03-07] MEDS: methylPREDNISolone Sod Succ 1,000 MG in 0.9 % Sodium Chloride 50 ML 66 MG IV (12:03)
--- NOTE | 2022-03-07 12:06 | P.PNIM_ITS ---
Subjective Subjective Date of Service: 03/07/22 Interval History: seen in f/u of ? MS flare still c/o diffuse pain, and weakness Review of Systems diffuse pain and weakness no fever Physical Exam Vital Signs: Vital Signs: Last Vital Signs Temp 98.2 F 03/07/22 09:33 Pulse 78 03/07/22 09:33 Resp 17 03/07/22 09:33 BP 117/73 03/07/22 09:33 Pulse Ox 97 03/07/22 09:33 BMI result Body Mass Index 37.7 Const: Other: General: AO X 3, no acute distress Resp: CTA bilateral CVS: S1,S2,RRR GI: +BS, NT, no distention Skin: No rash Neuro: motor grossly intact--no focal weakness Psych: appropriate affect Objective Data Active Medications Acetaminophen (Acetaminophen 325 Mg Tablet) 650 mg PO Q6H PRN PRN Reason: Pain, Mild (Pain Scale 1-3) Albuterol Sulfate (Albuterol Sulfate 90 Mcg 8 Gm Inhaler) 2 puff INHALE Q6H PRN PRN Reason: Shortness Of Breath Amlodipine Besylate (Amlodipine Besylate 5 Mg Tablet) 5 mg PO DAILY [facility]; Protocol Last Admin: 03/07/22 09:32 Dose: 5 mg Documented by: MARCUS Baclofen (Baclofen 10 Mg Tablet) 5 mg PO TID [facility] Last Admin: 03/07/22 09:29 Dose: 5 mg Documented by: MARCUS Divalproex Sodium (Divalproex Sodium 500 Mg Tablet.) 500 mg PO BID [facility] Last Admin: 03/07/22 09:32 Dose: 500 mg Documented by: MARCUS Enoxaparin Sodium (Enoxaparin Sodium 40 Mg/0.4 Ml Syringe) 40 mg SUBCUT Q24H [facility] Last Admin: 03/07/22 09:36 Dose: Not Given Documented by: MARCUS Non-Admin Reason: Patient Refused Gabapentin (Gabapentin 400 Mg Capsule) 800 mg PO TID [facility] Last Admin: 03/07/22 09:31 Dose: 800 mg Documented by: MARCUS Methylprednisolone Sodium Succinate 1,000 mg/ Sodium Chloride 66 mls @ 66 mls/hr IV ONCE ONE Stop: 03/07/22 12:33 Last Admin: 03/07/22 12:03 Dose: 66 mls/hr Documented by: MARCUS Melatonin (Melatonin 3 Mg Tablet) 6 mg PO BEDTIME PRN PRN Reason: Insomnia Last Admin: 03/06/22 21:16 Dose: 6 mg Documented by: LEONEL Omeprazole (Omeprazole 20 Mg Capsule.) 20 mg PO DAILY@0630 [facility] Last Admin: 03/07/22 06:36 Dose: 20 mg Documented by: PARISH Oxycodone HCl (Oxycodone Hcl Immed Release 5 Mg Tablet) 5 mg PO Q6H PRN PRN Reason: Pain, Severe (Pain Scale 7-10) Last Admin: 03/07/22 06:38 Dose: 5 mg Documented by: PARISH Quetiapine Fumarate (Quetiapine Fumarate 200 Mg Tablet) 200 mg PO BID [facility] Last Admin: 03/07/22 09:32 Dose: 200 mg Documented by: MARCUS Sodium Chloride (0.9 % Sodium Chloride Flush 3 Ml Syringe) 3 ml IVFLUSH QSHIFT [facility] Last Admin: 03/07/22 09:33 Dose: 3 ml Documented by: MARCUS Labs CBC & Chem 7: 03/05/22 23:57 03/05/22 23:57 Assessment and Plan (1) Weakness: Status: Acute Plan 46/F questionable MS diagnosis--doesn't see a neurologist and not on any disease modifying agents here with weakness, pain with ? MS flare 1/? MS flare--given IV solumedrol, she's noton disease modifying agents and is not followed b a neurologist, her diagnosis is not well established. -will get Neurology to assess her for need to continue IV steroid 2/Psych issues, continue meds, 3/ DVT prophylaxis Lovenox In patient: MS flare requiring IV Solumedrol Quality Stroke Does the patient have a stroke diagnosis?: No VTE Prior VTE?: No VTE Risk Level:: Medical - moderate - high VTE Device Contraindication: Treatment Not Indicated VTE Drug Contraindication: N/A - Med Ordered
[2022-03-07] MEDS: Melatonin 3 MG TABLET 6 MG PO (20:31)
[2022-03-08] MEDS: oxyCODONE HCl Immed Release 5 MG TABLET PO ×5 (02:47→23:23)
[2022-03-08 03:33] VITALS: BP 133/71; PULSE 84; RESP 18; TEMP 36.1; O2SAT 97
[2022-03-08] MEDS: Omeprazole 20 MG CAPSULE.DR PO (05:53)
[2022-03-08 07:18] VITALS: BP 141/75; PULSE 88; RESP 20; TEMP 36.2; O2SAT 97
--- NOTE | 2022-03-08 08:04 | HO.PM.IMPN ---
Subjective Subjective Date of Service: 03/08/22 Interval History: possible MS flare Review of Systems this time admitted for blurry vision and possible dizziness says dizziness and vision slightly better than yesterday has chronic pain Physical Exam Vital Signs: Vital Signs: Last Vital Signs Temp 97.1 F 03/08/22 07:18 Pulse 88 03/08/22 07:18 Resp 20 03/08/22 07:18 BP 141/75 H 03/08/22 07:18 Pulse Ox 97 03/08/22 07:18 BMI result Body Mass Index 37.7 General: AO X 3, no acute distress Resp:? CTA bilateral CVS: S1,S2,RRR GI: +BS, NT, no distention Skin: No rash Neuro:? motor grossly intact--no focal weakness Psych: appropriate affect Objective Data Active Medications Acetaminophen (Acetaminophen 325 Mg Tablet) 650 mg PO Q6H PRN PRN Reason: Pain, Mild (Pain Scale 1-3) Albuterol Sulfate (Albuterol Sulfate 90 Mcg 8 Gm Inhaler) 2 puff INHALE Q6H PRN PRN Reason: Shortness Of Breath Amlodipine Besylate (Amlodipine Besylate 5 Mg Tablet) 5 mg PO DAILY [facility]; Protocol Last Admin: 03/07/22 09:32 Dose: 5 mg Documented by: MARCUS Baclofen (Baclofen 10 Mg Tablet) 5 mg PO TID [facility] Last Admin: 03/07/22 20:31 Dose: 5 mg Documented by: MELA Divalproex Sodium (Divalproex Sodium 500 Mg Tablet.) 500 mg PO BID [facility] Last Admin: 03/07/22 20:31 Dose: 500 mg Documented by: MELA Enoxaparin Sodium (Enoxaparin Sodium 40 Mg/0.4 Ml Syringe) 40 mg SUBCUT Q24H [facility] Last Admin: 03/07/22 09:36 Dose: Not Given Documented by: MARCUS Non-Admin Reason: Patient Refused Gabapentin (Gabapentin 400 Mg Capsule) 800 mg PO TID [facility] Last Admin: 03/07/22 20:31 Dose: 800 mg Documented by: MELA Melatonin (Melatonin 3 Mg Tablet) 6 mg PO BEDTIME PRN PRN Reason: Insomnia Last Admin: 03/07/22 20:31 Dose: 6 mg Documented by: MELA Omeprazole (Omeprazole 20 Mg Capsule.) 20 mg PO DAILY@0630 [facility] Last Admin: 03/08/22 05:53 Dose: 20 mg Documented by: MELA Oxycodone HCl (Oxycodone Hcl Immed Release 5 Mg Tablet) 5 mg PO Q4H PRN PRN Reason: Pain, Severe (Pain Scale 7-10) Last Admin: 03/08/22 02:47 Dose: 5 mg Documented by: MELA Quetiapine Fumarate (Quetiapine Fumarate 200 Mg Tablet) 200 mg PO BID [facility] [place] Last Admin: 03/07/22 20:31 Dose: 200 mg Documented by: MELA Sodium Chloride (0.9 % Sodium Chloride Flush 3 Ml Syringe) 3 ml IVFLUSH QSHIFT [facility] Last Admin: 03/07/22 20:32 Dose: 3 ml Documented by: MELA Labs CBC & Chem 7: 03/05/22 23:57 03/05/22 23:57 Assessment and Plan (1) Multiple sclerosis: Status: Chronic Plan 46/F questionable MS diagnosis--doesn't see a neurologist and not on any disease modifying agents here with weakness, pain with ? MS flare 1/? MS flare--given IV solumedrol, she's noton disease modifying agents and is not followed b a neurologist, her diagnosis is not well established. Neurology eval noted- continue IV steroid/ MRI with contrast ordered. 2/Psych issues, continue meds 3/ DVT prophylaxis Lovenox In patient: MS flare requiring IV Solumedrol Quality Stroke Does the patient have a stroke diagnosis?: No VTE Prior VTE?: No VTE Risk Level:: Medical - moderate - high VTE Device Contraindication: Treatment Not Indicated VTE Drug Contraindication: N/A - Med Ordered
[2022-03-08] MEDS: QUEtiapine Fumarate 200 MG TABLET PO ×2 (09:26→20:30)
[2022-03-08] MEDS: Gabapentin 400 MG CAPSULE 800 MG PO ×3 (09:26→20:30)
[2022-03-08] MEDS: Divalproex Sodium 500 MG TABLET.DR PO ×2 (09:26→20:30)
[2022-03-08] MEDS: amLODIPine Besylate 5 MG TABLET PO (09:26)
[2022-03-08] MEDS: 0.9 % Sodium Chloride Flush 3 ML SYRINGE IVFLUSH ×2 (09:27→14:54)
[2022-03-08] MEDS: Baclofen 10 MG TABLET 5 MG PO ×3 (09:27→20:31)
[2022-03-08] MEDS: Enoxaparin Sodium 40 MG/0.4 ML SYRINGE SUBCUT (10:07)
[2022-03-08] MEDS: polyethylene glycoL 3350 17 GM POWD.PACK PO (11:02)
[2022-03-08] MEDS: methylPREDNISolone Sod Succ 1,000 MG in 0.9 % Sodium Chloride 50 ML 66 MG IV (11:02)
[2022-03-08 11:18] VITALS: BP 145/65; PULSE 88; RESP 19; TEMP 36.4; O2SAT 95
--- NOTE | 2022-03-08 11:27 | PM.NEUROCN ---
History of Present Illness Data of Consult Service Date: 03/08/22 Primary Care Provider: None Physician HPI Reason for consult: ? MS exacerbation. ? MS diagnosis This is a 46yr old woman who carries a questionable MS diagnosis--doesn't see a neurologist and not on any disease modifying agents, she? has been seen here frequently with ? MS flare . It usually resolved on its own, last time she was assessed by me and recommended? MRI which she refused. She is medical history of bipolar disorder, depressive type, borderline personality disorder, anxiety, history of polysubstance abuse with cocaine and alcohol, history of PTSD, history of ? CVA with residual right-sided weakness, history of ? multiple sclerosis , history of seizures, KRISTY, hypertension and acid reflux. She was admitted and discharged from [facility] from 03/01 to 03/02 with complaint of chest pain. ?She is admitted to inpatient Psych very frequently--her last admission here in Psych was August 2021. She presents here on this occasion stating she has MS flare- -with dizziness, blury vision. She is given IV Solumedrol and says she feels better now. Review of Systems Review of Systems: diffuse pain and weakness no fever Yes all other systems are reviewed and are negative Neurologic: Comments: Non focal PMFSH Past Medical History Medical History Alcohol abuse Asthma section wound complication Cocaine abuse Diabetes Fall GERD (gastroesophageal reflux disease) History of seizure Hypertension MDD (major depressive disorder), recurrent episode, severe Multiple sclerosis Multiple sclerosis Multiple sclerosis exacerbation Surgical History Surgical History History of left ankle joint replacement History of thoracic surgery Social History Social History Household Members: Spouse Housing: Other Housing Other:: Living in hotel Do you presently have visiting nurse or other home services: No Alcohol intake: never Patient Tobacco Use Status: Current everyday Tobacco user Tobacco use type: Cigarette Cigarette Packs Per Day: 0.5 Cigarettes Per Day: 5 Years Smoked: 26 e-Cigarette/Vaping Use: Never Used Second Hand Smoke Exposure: Yes ( also a smoker) Substance Use Type: Crack/Cocaine Advance Directives Date on File: 08/25/20 service: No Sexual orientation: Did not discuss Meds Allergies Allergy/AdvReac Type Severity Reaction Status Date / Time Iodinated Contrast Media Allergy Severe ANAPHYLAXIS Verified 09/14/21 07:09 [CONTRAST, IV] ibuprofen [From Motrin] Allergy Intermediate SWELLING Verified 09/14/21 07:09 morphine [MORPHINE] Allergy Intermediate RASH Verified 09/14/21 07:09 acetaminophen [From TYLENOL] Allergy Mild HIVES Verified 09/14/21 07:09 bee pollen [Bee Stings] Allergy Mild UNKNOWN Verified 09/14/21 07:09 coconut Allergy Mild HIVES/SWELL Verified 09/14/21 07:09 ING latex [Latex] Allergy Mild HIVES Verified 09/14/21 07:09 NSAIDS (Non-Steroidal Allergy Mild HIVES Verified 09/14/21 07:09 Anti-Inflamma [NSAIDS (NON-STEROIDAL ANTI-INFLAMMA] aspirin [ASA] Allergy Unknown HIVES Verified 09/14/21 07:09 tramadol [TRAMADOL] Allergy Unknown UNKNOWN Verified 09/14/21 07:09 turkey Allergy Unknown UNKNOWN Verified 09/14/21 07:09 lidocaine Allergy Rash Verified 09/14/21 07:09 Peppers, Green Allergy Shortness Verified 09/14/21 07:09 of Breath Peppers, Jalapeno Allergy Shortness Verified 09/14/21 07:09 of Breath Peppers, Red Allergy Shortness Verified 09/14/21 07:09 of Breath Peppers, Yellow Allergy Shortness Verified 09/14/21 07:09 of Breath From Vicodin Allergy Mild RASH Uncoded 06/13/21 20:16 Active Medications: Current Medications Acetaminophen (Acetaminophen 325 Mg Tablet) 650 mg PO Q6H PRN PRN Reason: Pain, Mild (Pain Scale 1-3) Albuterol Sulfate (Albuterol Sulfate 90 Mcg 8 Gm Inhaler) 2 puff INHALE Q6H PRN PRN Reason: Shortness Of Breath Amlodipine Besylate (Amlodipine Besylate 5 Mg Tablet) 5 mg PO DAILY [facility]; Protocol Last Admin: 03/08/22 09:26 Dose: 5 mg Documented by: Baclofen (Baclofen 10 Mg Tablet) 5 mg PO TID [facility] Last Admin: 03/08/22 09:27 Dose: 5 mg Documented by: Divalproex Sodium (Divalproex Sodium 500 Mg Tablet.) 500 mg PO BID [facility] Last Admin: 03/08/22 09:26 Dose: 500 mg Documented by: Docusate Sodium (Docusate Sodium 100 Mg Capsule) 100 mg PO BEDTIME [facility] Enoxaparin Sodium (Enoxaparin Sodium 40 Mg/0.4 Ml Syringe) 40 mg SUBCUT Q24H [facility] Last Admin: 03/08/22 10:07 Dose: 40 mg Documented by: Gabapentin (Gabapentin 400 Mg Capsule) 800 mg PO TID [facility] Last Admin: 03/08/22 09:26 Dose: 800 mg Documented by: Methylprednisolone Sodium Succinate 1,000 mg/ Sodium Chloride 66 mls @ 66 mls/hr IV DAILY [facility] Last Admin: 03/08/22 11:02 Dose: 66 mls/hr Documented by: Melatonin (Melatonin 3 Mg Tablet) 6 mg PO BEDTIME PRN PRN Reason: Insomnia Last Admin: 03/07/22 20:31 Dose: 6 mg Documented by: Omeprazole (Omeprazole 20 Mg Capsule.Dr) 20 mg PO DAILY@0630 [facility] Last Admin: 03/08/22 05:53 Dose: 20 mg Documented by: Oxycodone HCl (Oxycodone Hcl Immed Release 5 Mg Tablet) 5 mg PO Q4H PRN PRN Reason: Pain, Severe (Pain Scale 7-10) Last Admin: 03/08/22 09:26 Dose: 5 mg Documented by: Polyethylene Glycol (Polyethylene Glycol 3350 17 Gm Powd.Pack) 17 gm PO DAILY [facility] Last Admin: 03/08/22 11:02 Dose: 17 gm Documented by: Quetiapine Fumarate (Quetiapine Fumarate 200 Mg Tablet) 200 mg PO BID [facility] Last Admin: 03/08/22 09:26 Dose: 200 mg Documented by: Sodium Chloride (0.9 % Sodium Chloride Flush 3 Ml Syringe) 3 ml IVFLUSH QSHIFT [facility] Last Admin: 03/08/22 09:27 Dose: 3 ml Documented by: Trazodone HCl (Trazodone Hcl 50 Mg Tablet) 150 mg PO BEDTIME [facility] Home Medications Medication Instructions Recorded Confirmed Last Taken Type gabapentin 800 mg tablet 1 tab PO TID 02/09/22 03/06/22 Unknown History quetiapine 200 mg tablet 1 tab PO BID 02/09/22 03/06/22 Unknown History albuterol sulfate 90 mcg/actuation 2 puff INHALATION Q6H PRN 02/10/22 03/06/22 Unknown History aerosol inhaler (Ventolin HFA) baclofen 10 mg tablet 5 mg PO TID 03/06/22 03/06/22 Unknown History pantoprazole 40 mg tablet,delayed 1 tab PO DAILY 03/06/22 03/06/22 Unknown History release trazodone 150 mg tablet 1 tab PO BEDTIME 03/06/22 03/06/22 Unknown History Physical Exam Vital Signs: Vital Signs: Last Vital Signs Temp 97.5 F 03/08/22 11:18 Pulse 88 03/08/22 11:18 Resp 19 03/08/22 11:18 BP 145/65 H 03/08/22 11:18 Pulse Ox 95 03/08/22 11:18 BMI result Body Mass Index 37.7 Const: Other: General: AO X 3, no acute distress Resp: CTA bilateral CVS: S1,S2,RRR GI: +BS, NT, no distention Skin: No rash Neuro: motor grossly intact--no focal weakness Psych: appropriate affect Results Labs CBC & Chem 7: 03/05/22 23:57 03/05/22 23:57 Assessment and Plan (1) Weakness: Status: Acute (2) Multiple sclerosis: Status: Chronic Her diagnosis of multiple sclerosis is tenuous at best. I would recommend doing an MRI of the brain with and without gadolinium under IV sedation. (3) Personality disorder in adult: Status: Chronic Plan 46/F questionable MS diagnosis--doesn't see a neurologist and not on any disease modifying agents here with weakness, pain with ? MS flare 1/? MS flare--given IV solumedrol, she's noton disease modifying agents and is not followed b a neurologist, her diagnosis is not well established. -will get Neurology to assess her for need to continue IV steroid 2/Psych issues, continue meds, 3/ DVT prophylaxis Lovenox In patient: MS flare requiring IV Solumedrol Procedures Date of Service Date of Service: 03/08/22
--- NOTE | 2022-03-08 13:26 | MHC.CM.PN ---
nurse case aide note electronic medical record reviewed along with case discussed with staff nurse and hospitlaist met with patient she reported she was diagnosised with multiple scleroisi 2002 and reporsted thathshe used to have substance avbuse (cocaine and etoh)problem but has been cleaned for over 18 m0nths now (no toci screen done on admission) she re[ported having several mental health issues bipolar disoreder depressive type, bordeline personality, anxiety ptsd and is followed by [facility] psychiatrist and therapist , she reported to me she rec[facility]ty moved from [facility] and has [employer] insurance , and as soon as she has a assighned pcp and jordan seen they can get her other cok[employer]ity supports , continuous improvement analyst vna . i gave her the list for the [facility] , [facility] and [facility] . for her to call for one and book appointment as soon as possible , she reported she has a health care proxy faustobg her , copy requiested , also recived the covi vacination han and ministerio and two pfzier boosterd . she reported she uses a wlaker and has ordered a rolator , and also has pt-i for transportation if needed . discharge plan return to her current libving sitiustion with her he will provide transportation per patient self resumtpion of her [facility] mental health counseling [employer] [facility] , listing for her choose a pcp and call as soon aspossible . medicare imm sighned seen by neuroplogy and recomended a mri which she refused ? ms flare requiring continued hospitla stay requiring iv solumederol
[2022-03-08 15:19] VITALS: BP 172/89; PULSE 107; RESP 18; TEMP 36.6; O2SAT 98
[2022-03-08 19:02] VITALS: BP 176/112; PULSE 120; RESP 18; TEMP 36.5; O2SAT 95
[2022-03-08] MEDS: Melatonin 3 MG TABLET 6 MG PO (20:30)
[2022-03-08] MEDS: Docusate Sodium 100 MG CAPSULE PO (20:30)
[2022-03-08] MEDS: traZODone HCL 50 MG TABLET 150 MG PO (20:31)
[2022-03-08 23:37] VITALS: BP 145/88; PULSE 115; RESP 18; TEMP 36.9; O2SAT 98
--- NOTE | 2022-03-08 23:52 | PC.NURSE ---
At the start of the shift pt was scheduled for Brain MRI, went to get pt's consent but was agitated and anxious wanting to go AMA, pt refused to listen to any education and need for stay, Dr. Andersen was notified, Dr. Moseley came to see the pt, pt still decided to go AMA, paper for AMA was signed by pt, and was witnessed, and put in chart, pt said that her family will come take her around midnight, care rendered,needs and sched meds given, washed up and dressed up around 2200, IVLine on the right EJ removed and dressing applied,no bleed noted, around 2330 pt got up and walk to the by herself, wheelchair provided for transport, pt wanted to go to the ED wait for her family in the waiting room, the television script writer said to wait up here until they come but refused and got agitated, RN cell operation supervisor was asked and said pt is fit to go to the waiting room, staff wheeled pt to the ED waiting room at [id number].
--- NOTE | 2022-03-10 18:49 | PM.DS ---
DS: Providers Provider Date of Service: 03/08/22 Date of admission: 03/06/22 09:54 Primary care physician: None Physician Consults: 03/06/22 09:53 Consult to Neurology Routine Consulting Provider: [facility] Reason for consultation: ? MS flare Has provider been notified: No DS: Diagnosis Discharge Diagnosis (1) Multiple sclerosis: Status: Chronic DS: Summary Hospital Course Hospital Course: 46/F questionable MS diagnosis--doesn't see a neurologist and not on any disease modifying agents, she? has been seen here freqquently with ? MS flare that usually resolved on its own, last time she was assessed by Dr Chan and recommended? MRI she refused. Additionally ? medical history of bipolar disorder depressive type, borderline personality disorder, anxiety, history of polysubstance abuse with cocaine and alcohol, history of PTSD, history of CVA with residual right-sided weakness, history of multiple sclerosis, history of seizures, KRISTY, hypertension and acid reflux. Of note was admitted and discharged from [facility] from 03/01 to 03/02 with complaint of chest pain. ? she is admitted to inpatient Psych very frequently--her last admission here in Psych was august last year. She presents here on this occasion stating she has MS flare--with dizziness, blury vision. She is givin IV Solumedrol and says she feels better now. hospital course: patient was admitted for management of multiple sclerosis flare- started on IV steroids and her blurry vision seems to be improving and seen by neuro recommended to continue IV steroids and recommended MRI to further evaluate MS flare. Patient subsequently says that she wanted to go home has a family Feast to attend- discussed with her in detail that her MS flare can get worse and her symptoms can get worse, Staff witness conversation . she still decided to leave against medical advice. mild microcytic anemia- monitor CBC and further workup outpatient with PCP. she was told in detail to go to nearest emergency room For further management. above management discussed with her in detail length as above , time spent 30 minute Time Spent with Patient Time attestation: Total time spent providing and/or coordinating discharge services: Discharge coordination time: Greater than 30 minutes Quality: Safe Use of Opioids Does Pt have an Active Cancer Diagnosis on the Problem List?: No Quality: Stroke Does the patient have a stroke diagnosis?: No Physical Exam Vital Signs: Vital Signs: Last Vital Signs Temp 98.5 F 03/08/22 23:37 Pulse 115 H 03/08/22 23:37 Resp 18 03/08/22 23:37 BP 145/88 H 03/08/22 23:37 Pulse Ox 98 03/08/22 23:37 BMI result Body Mass Index 37.7 patient refused Physical exam. DS: Data Additional Comments Additional comments: CT/CT head/brain wo con IMPRESSION: No acute intracranial pathology. Discharge Plan Discharge Patient Disposition: Left Against Medical Advice Discharge Diagnosis: POSSIBLE MS FLARE Referrals: Physician,None [Primary Care Provider] - 1 Week Discharge Medications: Continued amlodipine 5 mg Tablet 5 mg PO DAILY 30 Days Qty: 30 0RF Protocol: Hold for SBP< HOLD for SBP < : 90 divalproex 500 mg Tablet,Delayed Release (Dr/Ec) 500 mg PO BID 30 Days Qty: 60 0RF albuterol sulfate [Ventolin HFA] 90 mcg/actuation HFA aerosol inhaler 2 puff inhalation Q6H PRN (Reason: Shortness Of Breath) 0RF pantoprazole 40 mg tablet,delayed release (DR/EC) 1 tab PO DAILY 0RF baclofen 10 mg tablet 5 mg PO TID 0RF trazodone 150 mg tablet 1 tab PO BEDTIME 0RF quetiapine 200 mg tablet 1 tab PO BID 0RF gabapentin 800 mg tablet 1 tab PO TID 0RF Discharge Orders: Discharge Order (Routine); Ordered 03/10/22 Ordered By: Prashant Moseley Diet: advance to usual diet and regular diet Care Plan Goals: left against medical advice, strongly advised to go to nearest emergency room for further management for her MS flare. Health Concerns: As above. Plan of Treatment: As above. Assessment: As above. Discharge Date/Time: 03/08/22 23:51
== END 2022-03-08 23:51 | disposition left against medical advice (07) | DRG 60 ==
LOC: HO.ED 03-06 04:26 → HO.EDOVER 03-06 10:28 → HO.S3 03-07 12:09
PROVIDERS: Physician Assistant; Admitting Provider Internal Medicine; Emergency Provider Emergency Medicine Emergency Medical Services; Visit Provider Internal Medicine
DX: G35 Multiple sclerosis (principal); J45.909 Unspecified asthma, uncomplicated; F17.210 Nicotine dependence, cigarettes, uncomplicated; Z71.6 Tobacco abuse counseling; Z20.822 Contact with and (suspected) exposure to COVID-19; F41.9 Anxiety disorder, unspecified; K21.9 Gastro-esophageal reflux disease without esophagitis; F43.10 Post-traumatic stress disorder, unspecified; F31.9 Bipolar disorder, unspecified; R29.6 Repeated falls; G47.33 Obstructive sleep apnea (adult) (pediatric); F14.10 Cocaine abuse, uncomplicated; Z91.81 History of falling; Z99.3 Dependence on wheelchair; Z96.662 Presence of left artificial ankle joint; Z91.041 Radiographic dye allergy status; Z91.040 Latex allergy status; Z88.5 Allergy status to narcotic agent; Z88.6 Allergy status to analgesic agent; Z79.899 Other long term (current) drug therapy
CPT/HCPCS: 36415; 70450; 80053; 80164; 83735; 85025; 85652; 86140; 87635; 96365; 99218; 99285; J1650; J2930; Q0163

== ENCOUNTER 2022-03-20 20:06 | Emergency (ER) | payer OTHER, SELFPAY ==
[2022-03-20 20:19] VITALS: BP 148/98; PULSE 102; O2SAT 98
[2022-03-20 20:21] VITALS: BMI 35.3
[2022-03-20 20:25] VITALS: BP 123/81; PULSE 98; RESP 20; O2SAT 99
--- NOTE | 2022-03-20 20:52 | ED.GENADULT ---
HPI - General Adult General Chief complaint: General Medical Stated complaint: MS flare up/CP Time Seen by Provider: 03/20/22 20:52 Source: patient Mode of arrival: EMS History of Present Illness HPI narrative: Patient with history of questionable members on any medications not seen a neurologist refused MRI just admitted 2 weeks ago left against medical advice on 03/10. History of PTSD depressive disorder cocaine abuse and personality disorder. Been here multiple times for questionable MS flare-up this time she comes for pain all over took her oxycodone in the morning feel very anxious multiple complaints Related Data Home Medications Medication Instructions Recorded Confirmed gabapentin 800 mg tablet 1 tab PO TID 02/09/22 03/06/22 quetiapine 200 mg tablet 1 tab PO BID 02/09/22 03/06/22 albuterol sulfate 90 mcg/actuation 2 puff inhalation Q6H PRN 02/10/22 03/06/22 aerosol inhaler (Ventolin HFA) Shortness Of Breath baclofen 10 mg tablet 5 mg PO TID 03/06/22 03/06/22 pantoprazole 40 mg tablet,delayed 1 tab PO DAILY 03/06/22 03/06/22 release trazodone 150 mg tablet 1 tab PO BEDTIME 03/06/22 03/06/22 Previous Rx's Medication Instructions Recorded amlodipine 5 mg tablet 5 mg PO DAILY 30 days #30 tabs 09/07/21 divalproex 500 mg tablet,delayed 500 mg PO BID 30 days #60 tabs 09/07/21 release lorazepam 1 mg tablet (Ativan) 1 mg PO BID PRN anxiety #10 tabs 03/20/22 oxycodone 5 mg tablet 5 mg PO Q6H PRN Pain, Severe #20 03/20/22 tabs Allergies Allergy/AdvReac Type Severity Reaction Status Date / Time Iodinated Contrast Media Allergy Severe ANAPHYLAXIS Verified 09/14/21 07:09 [CONTRAST, IV] ibuprofen [From Motrin] Allergy Intermediate SWELLING Verified 09/14/21 07:09 morphine [MORPHINE] Allergy Intermediate RASH Verified 09/14/21 07:09 acetaminophen [From TYLENOL] Allergy Mild HIVES Verified 09/14/21 07:09 bee pollen [Bee Stings] Allergy Mild UNKNOWN Verified 09/14/21 07:09 coconut Allergy Mild HIVES/SWELL Verified 09/14/21 07:09 ING latex [Latex] Allergy Mild HIVES Verified 09/14/21 07:09 NSAIDS (Non-Steroidal Allergy Mild HIVES Verified 09/14/21 07:09 Anti-Inflamma [NSAIDS (NON-STEROIDAL ANTI-INFLAMMA] aspirin [ASA] Allergy Unknown HIVES Verified 09/14/21 07:09 tramadol [TRAMADOL] Allergy Unknown UNKNOWN Verified 09/14/21 07:09 turkey Allergy Unknown UNKNOWN Verified 09/14/21 07:09 lidocaine Allergy Rash Verified 09/14/21 07:09 Peppers, Green Allergy Shortness Verified 09/14/21 07:09 of Breath Peppers, Jalapeno Allergy Shortness Verified 09/14/21 07:09 of Breath Peppers, Red Allergy Shortness Verified 09/14/21 07:09 of Breath Peppers, Yellow Allergy Shortness Verified 09/14/21 07:09 of Breath From Vicodin Allergy Mild RASH Uncoded 06/13/21 20:16 Review of Systems Review of Systems: Yes all other systems are reviewed and are negative PMFSH Past Medical History Medical History Alcohol abuse Asthma section wound complication Cocaine abuse Diabetes Fall GERD (gastroesophageal reflux disease) History of seizure Hypertension MDD (major depressive disorder), recurrent episode, severe Multiple sclerosis Multiple sclerosis Multiple sclerosis exacerbation Surgical History History of left ankle joint replacement History of thoracic surgery Social History Social History Household Members: Spouse Housing: Other Housing Other:: Living in hotel Do you presently have visiting nurse or other home services: No Alcohol intake: former Patient Tobacco Use Status: Current everyday Tobacco user Tobacco use type: Cigarette Cigarette Packs Per Day: 0.5 Cigarettes Per Day: 5 Years Smoked: 26 Smoked in Last 30 Days: Yes e-Cigarette/Vaping Use: Never Used Second Hand Smoke Exposure: Yes ( also a smoker) Substance Use Type: Former Substance User Advance Directives: Yes Advance Directives on File: Yes Advance Directives Date on File: 08/25/20 Patient : No service: No Sexual orientation: Did not discuss Physical Exam ED Vital Signs: Vital Signs - 24 hr 03/20/22 20:25 Pulse Rate 98 Respiratory Rate 20 Blood Pressure 123/81 Pulse Oximetry 99 Oxygen Delivery Method Room Air BMI result Body Mass Index 35.3 Appearance: Alert. Oriented X3. No acute distress. Anxious Eyes: PERRLA, No Nystagmus ENT: Pharynx normal. Oral Mucosa moist Neck: Normal inspection. Neck supple. CVS: Normal heart rate and rhythm. Pulses normal. Respiratory: No respiratory distress. Equal air entry bilateral, no wheezing/rales/rhonchi Abdomen: Soft and nontender. Bowel sounds are present, no mass palpable, no CVA tenderness Skin: Skin warm and dry. Normal skin color. Normal skin turgor. Extremities: No lower extremity edema. No calf tenderness Neuro: Oriented X 3. No motor deficit. No sensory deficit.No cerebellar signs , cranial nerves II-XII intact Discharge Plan Discharge Clinical Impression: Weakness, Anxiety Patient Disposition: Home, Self-Care Instructions: Weakness (ED), Anxiety (ED) Additional Instructions: Take pain medication as prescribed Continue medication for anxiety and follow-up with your psychiatrist Prescriptions: New oxycodone 5 mg tablet 5 mg PO Q6H PRN (Reason: Pain, Severe) Qty: 20 0RF Rx Instructions: Partial Fill upon patient request. lorazepam [Ativan] 1 mg tablet 1 mg PO BID PRN (Reason: anxiety) Qty: 10 0RF No [facility] amlodipine 5 mg Tablet 5 mg PO DAILY 30 Days Qty: 30 0RF Protocol: Hold for SBP< HOLD for SBP < : 90 divalproex 500 mg Tablet,Delayed Release (Dr/Ec) 500 mg PO BID 30 Days Qty: 60 0RF albuterol sulfate [Ventolin HFA] 90 mcg/actuation HFA aerosol inhaler 2 puff inhalation Q6H PRN (Reason: Shortness Of Breath) pantoprazole 40 mg tablet,delayed release (DR/EC) 1 tab PO DAILY baclofen 10 mg tablet 5 mg PO TID trazodone 150 mg tablet 1 tab PO BEDTIME quetiapine 200 mg tablet 1 tab PO BID gabapentin 800 mg tablet 1 tab PO TID
[2022-03-20] MEDS: LORazepam 1 MG TABLET 2 MG PO (21:16)
[2022-03-20] MEDS: oxyCODONE HCl Immed Release 5 MG TABLET 10 MG PO (21:16)
--- NOTE | 2022-03-20 21:35 | PC.NURSE ---
Pt requested to be on 2 LPM O2 via [facility]. Pt stated she has sleep apnea and was dozing off, uses O2 at home when she sleeps. Pt is satting at O2.
--- NOTE | 2022-03-20 21:45 | PC.NURSE ---
This US/PCT called [facility] at [phone] for a BLS Transfer home they stated unable to take any transfers tonight.Charge Nurse Aware
== END 2022-03-20 21:41 | disposition home or self-care (01) ==
PROVIDERS: Emergency Provider Internal Medicine
DX: R53.1 Weakness (principal); F41.9 Anxiety disorder, unspecified; I10 Essential (primary) hypertension; E11.9 Type 2 diabetes mellitus without complications; J45.909 Unspecified asthma, uncomplicated; G35 Multiple sclerosis
CPT/HCPCS: 99283; 99284

== ENCOUNTER 2022-03-22 22:49 | Emergency (ER) | payer OTHER, SELFPAY ==
[2022-03-22 23:08] VITALS: BP 144/88; PULSE 102; O2SAT 99
[2022-03-23 01:10] VITALS: BP 135/84; PULSE 98; RESP 20; TEMP 36.8; O2SAT 99; BMI 37.3
[2022-03-23 01:50] VITALS: BP 140/87; PULSE 98; RESP 20; O2SAT 100
--- NOTE | 2022-03-23 02:11 | ED_ITS ---
HPI - General Adult General Chief complaint: General Medical Stated complaint: MS/Leg Pain Time Seen by Provider: 03/23/22 02:06 Source: patient Mode of arrival: ambulatory Limitations: no limitations History of Present Illness HPI narrative: Since patient came in complaining of chronic bilateral pain secondary to multiple sclerosis. When I walked into the room, patient states that she has no pain and wants to sleep. Note, patient left AMA this hospital on March 10 secondary to and multiple sclerosis exacerbation with unclear diagnosis. Patient refused an MRI. Related Data Home Medications Medication Instructions Recorded Confirmed gabapentin 800 mg tablet 1 tab PO TID 02/09/22 03/06/22 quetiapine 200 mg tablet 1 tab PO BID 02/09/22 03/06/22 albuterol sulfate 90 mcg/actuation 2 puff inhalation Q6H PRN 02/10/22 03/06/22 aerosol inhaler (Ventolin HFA) Shortness Of Breath baclofen 10 mg tablet 5 mg PO TID 03/06/22 03/06/22 pantoprazole 40 mg tablet,delayed 1 tab PO DAILY 03/06/22 03/06/22 release trazodone 150 mg tablet 1 tab PO BEDTIME 03/06/22 03/06/22 Previous Rx's Medication Instructions Recorded amlodipine 5 mg tablet 5 mg PO DAILY 30 days #30 tabs 09/07/21 divalproex 500 mg tablet,delayed 500 mg PO BID 30 days #60 tabs 09/07/21 release lorazepam 1 mg tablet (Ativan) 1 mg PO BID PRN anxiety #10 tabs 03/20/22 oxycodone 5 mg tablet 5 mg PO Q6H PRN Pain, Severe #20 03/20/22 tabs Allergies Allergy/AdvReac Type Severity Reaction Status Date / Time Iodinated Contrast Media Allergy Severe ANAPHYLAXIS Verified 09/14/21 07:09 [CONTRAST, IV] ibuprofen [From Motrin] Allergy Intermediate SWELLING Verified 09/14/21 07:09 morphine [MORPHINE] Allergy Intermediate RASH Verified 09/14/21 07:09 acetaminophen [From TYLENOL] Allergy Mild HIVES Verified 09/14/21 07:09 bee pollen [Bee Stings] Allergy Mild UNKNOWN Verified 09/14/21 07:09 coconut Allergy Mild HIVES/SWELL Verified 09/14/21 07:09 ING latex [Latex] Allergy Mild HIVES Verified 09/14/21 07:09 NSAIDS (Non-Steroidal Allergy Mild HIVES Verified 09/14/21 07:09 Anti-Inflamma [NSAIDS (NON-STEROIDAL ANTI-INFLAMMA] aspirin [ASA] Allergy Unknown HIVES Verified 09/14/21 07:09 tramadol [TRAMADOL] Allergy Unknown UNKNOWN Verified 09/14/21 07:09 turkey Allergy Unknown UNKNOWN Verified 09/14/21 07:09 lidocaine Allergy Rash Verified 09/14/21 07:09 Peppers, Green Allergy Shortness Verified 09/14/21 07:09 of Breath Peppers, Jalapeno Allergy Shortness Verified 09/14/21 07:09 of Breath Peppers, Red Allergy Shortness Verified 09/14/21 07:09 of Breath Peppers, Yellow Allergy Shortness Verified 09/14/21 07:09 of Breath From Vicodin Allergy Mild RASH Uncoded 06/13/21 20:16 Review of Systems Review of Systems: Constitutional : No Weight loss, No Fever, No Chills, No Night Sweats, No Fatigue, No Malaise, complaining of feeling sleepy ENT/Mouth : No Hearing loss, No Ear Pain, No Nasal Congestion, No Sinus Pain, No Hoarseness, No sore throat, No Rhinorrhea, No Swallowing Difficulty Eyes: No Eye Pain, No Swelling, No Redness, No Foreign Body, No Discharge, No Vision Changes Cardiovascular : No Chest Pain, No SOB, No Dyspnea on Exertion, No Orthopnea, No Edema, No Palpitations Respiratory : No Cough, No Sputum, No Wheezing, No Smoke Exposure, No Dyspnea Gastrointestinal : No Nausea, No Vomiting, No Diarrhea, No Constipation, No abdominal Pain, No Hematochezia, No Melena Genitourinary : no irregular bleeding, No Dysuria, No Urinary Frequency, No Hematuria, No Urinary Incontinence, No Urgency, No Flank Pain, No Urinary Flow Changes, No Hesitancy Musculoskeletal : Complaining of chronic leg pain initially, this time states she does not have pain Skin : No Skin Lesions, No rash Neuro : No Weakness, No Numbness, No Paresthesias, No Loss of Consciousness, No Dizziness, No Headache Psych : No Anxiety/Panic, No Depression, No SI/HI/AH/VH, No Social Issues, Heme/Lymph: No Bruising, No Bleeding,No Lymphadenopathy Endocrine : No Polyuria, No Polydipsia, No Temperature Intolerance PMFSH Past Medical History Medical History Alcohol abuse Asthma section wound complication Cocaine abuse Diabetes Fall GERD (gastroesophageal reflux disease) History of seizure Hypertension Multiple sclerosis Multiple sclerosis exacerbation Personality disorder in adult Post traumatic stress disorder (PTSD) Surgical History History of left ankle joint replacement History of thoracic surgery Social History Social History Household Members: Spouse Housing: Other Housing Other:: Living in hotel Do you presently have visiting nurse or other home services: No Alcohol intake: former Patient Tobacco Use Status: Current everyday Tobacco user Tobacco use type: Cigarette Cigarette Packs Per Day: 0.5 Cigarettes Per Day: 5 Years Smoked: 26 e-Cigarette/Vaping Use: Never Used Second Hand Smoke Exposure: Yes ( also a smoker) Substance Use Type: Former Substance User Advance Directives: Yes Advance Directives on File: Yes Advance Directives Date on File: 08/25/20 service: No Sexual orientation: Did not discuss Physical Exam ED Vital Signs: Vital Signs - 24 hr 03/23/22 01:10 03/23/22 01:50 Temperature 98.3 F Pulse Rate 98 98 Respiratory Rate 20 20 Blood Pressure 135/84 140/87 H Pulse Oximetry 99 100 Oxygen Delivery Method Room Air Room Air BMI result Body Mass Index 37.3 Const Other: Appearance: Alert. Somnolent Eyes: Pupils equal, round and reactive to light. ENT: Pharynx normal. Neck: Normal inspection. Neck supple. No lymph nodes noted. No crepitus CVS: Normal heart rate and rhythm. Pulses normal. Normal S1 and S2 Respiratory: No respiratory distress. Breath sounds normal. No Wheezing. No rales Abdomen: Soft and nontender. No rigidity. No distention. Skin: Skin warm and dry. Normal skin color. Normal skin turgor. Extremities: None patient's were flexed and extended, she did not have significant pain, and yelling because she wants to live be left alone and sleep Neuro: Oriented X 3. No motor deficit. No sensory deficit. Moving all extremities. No slurred speech. CN 2 through 12 grossly intact Psych: calm, sleeping, somnolent Course Course Course Narrative: Patient was seen here 2 days ago, patient was seeing a prescription of oxycodone, 20 tablets and Ativan tablets. At this time, patient should have en ough medications at home. Discharge Plan Discharge Clinical Impression: Chronic pain, Somnolence Patient Disposition: Home, Self-Care Instructions: Chronic Pain (ED) Additional Instructions: Please follow-up with your primary care physician tomorrow. If you have any worsening or new symptoms, please return to the emergency room or call 911 Prescriptions: No Action amlodipine 5 mg Tablet 5 mg PO DAILY 30 Days Qty: 30 0RF Protocol: Hold for SBP< HOLD for SBP < : 90 divalproex 500 mg Tablet,Delayed Release (Dr/Ec) 500 mg PO BID 30 Days Qty: 60 0RF albuterol sulfate [Ventolin HFA] 90 mcg/actuation HFA aerosol inhaler 2 puff inhalation Q6H PRN (Reason: Shortness Of Breath) pantoprazole 40 mg tablet,delayed release (DR/EC) 1 tab PO DAILY baclofen 10 mg tablet 5 mg PO TID trazodone 150 mg tablet 1 tab PO BEDTIME oxycodone 5 mg tablet 5 mg PO Q6H PRN (Reason: Pain, Severe) Qty: 20 0RF Rx Instructions: Partial Fill upon patient request. lorazepam [Ativan] 1 mg tablet 1 mg PO BID PRN (Reason: anxiety) Qty: 10 0RF quetiapine 200 mg tablet 1 tab PO BID gabapentin 800 mg tablet 1 tab PO TID
== END 2022-03-23 08:25 | disposition home or self-care (01) ==
PROVIDERS: Emergency Provider Emergency Medicine
DX: G89.29 Other chronic pain (principal); M79.605 Pain in left leg; M79.604 Pain in right leg; R40.0 Somnolence; G35 Multiple sclerosis; E11.9 Type 2 diabetes mellitus without complications; I10 Essential (primary) hypertension; J45.909 Unspecified asthma, uncomplicated
CPT/HCPCS: 99283

== ENCOUNTER 2022-03-23 08:44 | Emergency (ER) | payer OTHER, SELFPAY ==
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
[2022-03-23 09:09] VITALS: BP 136/97; PULSE 93; RESP 16; TEMP 35.8; O2SAT 98; BMI 48.1
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
== END 2022-03-23 13:46 | disposition home or self-care (01) ==
PROVIDERS: Emergency Provider Emergency Medicine
DX: Z04.41 Encounter for examination and observation following alleged adult rape (principal)
CPT/HCPCS: 99283; 99285

== ENCOUNTER 2022-03-24 12:46 | Emergency (ER) | payer OTHER, SELFPAY ==
[2022-03-24 13:00] VITALS: BP 126/81; BP 170/100; PULSE 110; PULSE 97; RESP 19; TEMP 36.2; O2SAT 98; O2SAT 99; BMI 38.0
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
--- NOTE | 2022-03-24 14:25 | PC.NURSE ---
PT VERY DROWSY WHEN BROUGHT IN TO THE MAIN ED, SHE IS FALLING ASLEEP WHILE EATING AND WHEN MD WAS ATTEMPTING TO INTERVIEW PT. SHE WAS GIVEN NASAL NARCAN WITH TEMPORARY RESULTS. SHE IS SITTING IN A WC OFFERING NO STATEMENTS OF SI
[2022-03-24] MEDS: Naloxone HCl Nasal 4 MG SPRAY NOSTRILALT ×2 (14:30→14:50)
[2022-03-24 14:33] VITALS: PULSE 102; RESP 14; O2SAT 100
[2022-03-24 15:04] LABS: Glucose, Whole Blood 106 mg/dL (60-115)
--- NOTE | 2022-03-24 15:11 | PC.NURSE ---
RR and SPO2 remain WNL. Pt remains obtunded, no response with second dose of IN Narcan. Pt transferred to room, Sinus tach on monitor. Pupils remain pinpoint.
--- NOTE | 2022-03-24 15:54 | PC.NURSE ---
Pt difficult stick, multiple attempts made by staff.
[2022-03-24 16:51] LABS: Basophils Percent Auto 0.1 % (0-2); Eosinophils Absolute Auto 0.1 X10*3/uL (0.0-0.4); Eosinophils Percent Auto 0.6 % (0-4); NRBC Pct Auto 0.4 /100WBC (0.0-0.2); SCAN SMEAR FLAG 1
[2022-03-24 16:53] LABS: Hematocrit 36.6 % (37.0-47.0); Hemoglobin 10.8 g/dl (12.0-16.0); Imm Gran Pct Auto 3.8 % (0.0-0.4); Lymphocytes Absolute Auto 2.1 X10*3/uL (1.2-4.9); Lymphocytes Percent Auto 26.8 % (20-40); MANUAL DIFF FLAG SCAN; Mean Corpuscular HGB Conc 29.5 g/dl (31.0-35.0); Mean Corpuscular Hemoglobin 24.1 pg (27.0-33.0); Mean Corpuscular Volume 81.5 fL (80.0-98.0); Monocytes Absolute Auto 0.6 X10*3/uL (0.1-1.2); Neutrophils Absolute Auto 4.9 x10*3/uL (2.0-8.3); Neutrophils Percent Auto 61.7 % (45-73); Red Blood Count 4.49 X10*6/uL (4.20-5.50); Red Cell Distribution Width 21.4 % (11.0-16.0)
[2022-03-24 16:58] LABS: PLT ABN DIST 1
[2022-03-24 17:05] VITALS: BP 134/95; PULSE 92; RESP 17; O2SAT 98
[2022-03-24 17:06] LABS: Ethanol < 10 mg/dL
[2022-03-24 17:12] LABS: Platelet Count 206 X10*3/uL (160-400)
[2022-03-24 17:13] LABS: SLIDE REVIEW VERIFIED
[2022-03-24 17:17] LABS: Acetaminophen LAB < 1 mcg/mL (<30); Alanine Aminotransferase 13 U/L (0-31); Albumin Level 3.8 g/dL (3.5-5.0); Alkaline Phosphatase 65 U/L (39-117); Anion Gap 13 (12-20); Aspartate Amino Transferase 17 U/L (5-31); Bilirubin Total 0.2 mg/dL (0.0-1.0); Blood Urea Nitrogen 10 mg/dL (9-16); Calcium 9.2 mg/dL (8.4-10.2); Carbon Dioxide 23 mmol/L (22-29); Chloride 109 mmol/L (96-108); Creatinine Clr Calc Pharmacy 122.1; Estimated Glomerular Filt Rate > 60; Glucose Random 107 mg/dL (60-115); Salicylate < 5.0 mg/dL (15-30); Sodium 140 mmol/L (135-145); Total Protein 6.9 g/dL (6.5-8.0)
--- NOTE | 2022-03-24 18:47 | PC.NURSE ---
Pt remains asleep, easily roused by verbal stimuli, quickly becomes demanding and belligerent. VS remain WNL, resp even, nonlaboured.
[2022-03-24 20:06] VITALS: BP 127/88; PULSE 78; RESP 17; O2SAT 100
--- NOTE | 2022-03-24 21:38 | PHA.MEDREC ---
Pharmacy Consult ? Medication Reconciliation Pharmacy has completed the medication reconciliation. Spoke with patient. Some of her home doses reported did not match her pharmacy fill history. Doses did not make sense for how a drug is supplied and what she filled at her pharmacy. Pt claimed to be taking double many doses but her claim history does not support this.
[2022-03-24 22:28] LABS: COVID-19 Test Negative (Negative)
[2022-03-25 03:40] VITALS: BP 129/73; PULSE 74; RESP 16; TEMP 36.3; O2SAT 99
--- NOTE | 2022-03-25 05:23 | PC.NURSE ---
Patient slept through the night, no distress observed/reported, behavior non concerning, patient presents with multiple needs, ambulates with walker but needs supervision, [facility]N referral completed/confirmed/pending evaluation in the morning, med rec completed, MAR updated, pending urine sample, VSS, will continue to monitor.
--- NOTE | 2022-03-25 07:11 | PC.NURSE ---
patient appears to remain asleep at present patient appears in no distress, respirations are even and unlabored
[2022-03-25] MEDS: amLODIPine Besylate 5 MG TABLET PO (08:33)
[2022-03-25] MEDS: Gabapentin 300 MG CAPSULE PO (08:33)
[2022-03-25] MEDS: Divalproex Sodium 500 MG TABLET.DR PO (08:33)
[2022-03-25] MEDS: Baclofen 10 MG TABLET 5 MG PO (08:33)
[2022-03-25] MEDS: Loratadine 10 MG TABLET PO (08:34)
[2022-03-25] MEDS: LORazepam 1 MG TABLET PO (08:35)
== END 2022-03-25 10:46 | disposition home or self-care (01) ==
PROVIDERS: Emergency Provider Emergency Medicine Emergency Medical Services
DX: T74.11XA Adult physical abuse, confirmed, initial encounter (principal); Y07.01 Husband, perpetrator of maltreatment and neglect; R45.851 Suicidal ideations; Z20.822 Contact with and (suspected) exposure to COVID-19; E11.9 Type 2 diabetes mellitus without complications; I10 Essential (primary) hypertension; G35 Multiple sclerosis; F17.200 Nicotine dependence, unspecified, uncomplicated; F43.10 Post-traumatic stress disorder, unspecified; F60.9 Personality disorder, unspecified; Z79.899 Other long term (current) drug therapy
CPT/HCPCS: 36415; 80053; 80143; 80179; 82077; 82947; 85025; 87635; 99285

== ENCOUNTER 2022-04-05 17:49 | Emergency (ER) | payer OTHER, SELFPAY ==
--- NOTE | ~2022-04-05 | CT_ITS ---
EXAMINATION: NONCONTRAST HEAD CT NONCONTRAST CERVICAL SPINE CT INDICATION INFORMATION: Head trauma COMPARISON: Head CT 03/06/2022, cervical spine CT 11/23/2020 TECHNIQUE: Separate noncontrast CT examinations of the head and cervical spine were performed. Coronal and sagittal images were created for each examination at the technologist workstation. This CT examination was performed using dose optimization techniques as appropriate, variously including the following: *Automated exposure control *Adjustment of mA and/or kV according to patient size (this includes techniques or standardized protocols for targeted exams where dose is matched to indication/reason for exam; i.e. extremities or head) *Use of iterative reconstruction technique DLP: 1515 mGy-cm FINDINGS: HEAD: No intra or extra-axial fluid collection, hemorrhage, or mass. No ventriculomegaly. No midline shift or herniation. Basal cisterns are patent. Carlton-white matter differentiation is maintained. No territorial encephalomalacia. Proportional prominence of the ventricles and sulcal spaces is consistent with mild volume loss. Patchy periventricular and deep white matter hypoattenuation is consistent with mild small vessel ischemic changes. No calvarial fracture or soft tissue abnormality. The mastoid air cells and visualized portions of the paranasal sinuses are well aerated. CERVICAL SPINE: Alignment: Normal. No subluxation. Vertebra: No acute fracture. No prevertebral soft tissue swelling. Degenerative disc disease: Moderate disc height loss with endplate sclerosis and proliferative change at C3-C4, unchanged. Intervertebral disc heights otherwise are maintained. Other findings: No cervical lymphadenopathy. Visualized major salivary glands and thyroid gland are unremarkable. Visualized lung apices are clear. CT/CT cervical spine wo con IMPRESSION: 1. No intracranial hemorrhage or calvarial fracture. 2. No traumatic subluxation or acute cervical spine fracture.
[2022-04-05 17:54] VITALS: BP 146/96; BP 162/98; PULSE 93; PULSE 98; RESP 16; TEMP 36.9; O2SAT 99; BMI 41.6
--- NOTE | 2022-04-05 18:16 | ED.FALL ---
HPI - Fall General Chief Complaint: Back Pain/Injury Stated Complaint: BACK PAIN Time Seen by Provider: 04/05/22 22:13 Source: patient and EMS Mode of arrival: EMS Limitations: no limitations History of Present Illness HPI Narrative: 46-year-old female presents via EMS for MS flare fall with head trauma and loss consciousness. Patient states that she has had multiple falls with multiple episodes of loss consciousness. Was evaluated at [facility] earlier today. Patient has had multiple visits to this facility for similar presentation. MD complaint: fall Onset (ago): hour(s) (Within the hour of arrival) Fall from: wheelchair Fall witnessed: yes, by family Place fall occurred: home Loss of consciousness: yes Length of LOC: minutes(s) Prolonged down time: no Symptoms prior to fall: dizziness Context: tripped/slipped and history of frequent falls Location of injury: head Severity: similar to previous episodes Severity scale (1-10): 8 Quality: aching Associated symptoms (after fall): headache, neck pain and weakness Related Data Home Medications Medication Instructions Recorded Confirmed albuterol sulfate 90 mcg/actuation 2 puff inhalation Q6H PRN 02/10/22 04/05/22 aerosol inhaler (Ventolin HFA) Shortness Of Breath loratadine 10 mg tablet 1 tab PO DAILY 03/24/22 04/05/22 quetiapine 300 mg tablet 1 tab PO BEDTIME 03/24/22 04/05/22 trazodone 100 mg tablet 1 tab PO BEDTIME 03/24/22 04/05/22 Previous Rx's Medication Instructions Recorded amlodipine 5 mg tablet 5 mg PO DAILY 30 days #30 tabs 09/07/21 divalproex 500 mg tablet,delayed 500 mg PO BID 30 days #60 tabs 09/07/21 release Allergies Allergy/AdvReac Type Severity Reaction Status Date / Time Iodinated Contrast Media Allergy Severe ANAPHYLAXIS Verified 09/14/21 07:09 [CONTRAST, IV] ibuprofen [From Motrin] Allergy Intermediate SWELLING Verified 09/14/21 07:09 morphine [MORPHINE] Allergy Intermediate RASH Verified 09/14/21 07:09 acetaminophen [From TYLENOL] Allergy Mild HIVES Verified 09/14/21 07:09 bee pollen [Bee Stings] Allergy Mild UNKNOWN Verified 09/14/21 07:09 coconut Allergy Mild HIVES/SWELL Verified 09/14/21 07:09 ING latex [Latex] Allergy Mild HIVES Verified 09/14/21 07:09 NSAIDS (Non-Steroidal Allergy Mild HIVES Verified 09/14/21 07:09 Anti-Inflamma [NSAIDS (NON-STEROIDAL ANTI-INFLAMMA] aspirin [ASA] Allergy Unknown HIVES Verified 09/14/21 07:09 tramadol [TRAMADOL] Allergy Unknown UNKNOWN Verified 09/14/21 07:09 turkey Allergy Unknown UNKNOWN Verified 09/14/21 07:09 lidocaine Allergy Rash Verified 09/14/21 07:09 Peppers, Green Allergy Shortness Verified 09/14/21 07:09 of Breath Peppers, Jalapeno Allergy Shortness Verified 09/14/21 07:09 of Breath Peppers, Red Allergy Shortness Verified 09/14/21 07:09 of Breath Peppers, Yellow Allergy Shortness Verified 09/14/21 07:09 of Breath From Vicodin Allergy Mild RASH Uncoded 06/13/21 20:16 Review of Systems Review of Systems: Constitutional: No Fever, No Chills ENT/Mouth: No Ear Pain, No Hoarseness, No sore throat Eyes: No Eye Pain, No Swelling, No Redness, No Foreign Body Cardiovascular: No Chest Pain, No SOB Respiratory: No Cough, No Dyspnea Gastrointestinal: No Nausea, No Vomiting, No Diarrhea, No abdominal Pain Genitourinary: No Dysuria, No Hematuria Musculoskeletal: positive head pain, No Myalgias, No Joint Swelling Skin: No Skin lacerations, No rash Neuro: No Weakness, No Numbness, No Paresthesias, positive Loss of Consciousness, positive Dizziness, No Headache Psych: No Anxiety/Panic, No Depression Heme/Lymph: no easy bruising, no Lymphadenopathy Endocrine: No Polyuria, No Polydipsia Yes all other systems are reviewed and are negative [facility] Past Medical History Attestation statement: The following information was validated with the patient. Source: old records reviewed Medical History Alcohol abuse Asthma section wound complication Cocaine abuse Diabetes Fall GERD (gastroesophageal reflux disease) History of seizure Hypertension Multiple sclerosis Multiple sclerosis exacerbation Personality disorder in adult Post traumatic stress disorder (PTSD) Surgical History History of left ankle joint replacement History of thoracic surgery Social History Social History Household Members: Spouse Housing: Other Housing Other:: Living in hotel Do you presently have visiting nurse or other home services: No Alcohol intake: former Patient Tobacco Use Status: Current everyday Tobacco user Tobacco use type: Cigarette Cigarette Packs Per Day: 0.5 Cigarettes Per Day: 5 Years Smoked: 26 e-Cigarette/Vaping Use: Never Used Second Hand Smoke Exposure: Yes ( also a smoker) Use of substances other than those prescribed or required for medical reasons: No Substance Use Type: Former Substance User Advance Directives: Yes Advance Directives on File: Yes Advance Directives Date on File: 08/25/20 service: No Sexual orientation: Did not discuss Physical Exam Vital Signs: Vital Signs: Last Vital Signs Temp 98.3 F 04/05/22 18:57 Pulse 100 04/05/22 18:57 Resp 18 04/05/22 18:57 BP 146/87 H 04/05/22 18:57 Pulse Ox 100 04/05/22 18:57 O2 Del Method 04/05/22 18:57 BMI result Body Mass Index 41.6 Appearance: Alert. Oriented X3. No acute distress. Eyes: Pupils equal, round and reactive to light. ENT: Pharynx normal. Neck: Normal inspection. Neck supple. CVS: Normal heart rate and rhythm. Pulses normal. Respiratory: No respiratory distress. Breath sounds normal. Abdomen: Soft and nontender. Obese. Skin: Skin warm and dry. Normal skin color. Normal skin turgor. Extremities: No lower extremity edema. Neuro: No motor deficit. No sensory deficit. Cranial nerves 2-12 intact. Course Course Course Narrative: 46-year-old female presents to the emergency department for ?MS flare? fall with head trauma and loss of consciousness. Patient states that this usually happens to her when she has MS flare ups. She does not have any appreciable wounds, bruising, or hematomas noted. Patient has had multiple presentations consistent with this in the past. Recent admission on 03/06/2022 until 03/10/2022 given high-dose Solu-Medrol. Patient was evaluated by Neurology at that time, MS uncertain diagnosis as patient refused MRI and left against medical advice. At this time patient is alert oriented x4, answering questions appropriately, stated that she received 10 mg of oxycodone on a regular basis for her pain management. I did tell her that I would not be medicating her for pain until CT cervical return . Patient is refusing urinalysis, requesting straight cath. Patient is able to void without difficulty while at home. She does have a history of incontinence. 20:17 CT scan head and neck negative for acute findings. I did discuss the findings with the patient. Patient states that she can not take care of herself and would like custodial facility placement. Discussion with case management at this time. 21:30 pharmacy completed med rec, unable to verify Ativan dosage. Patient does not receive oxycodone as a scheduled medication, last time she was prescribed narcotics was from this emergency department. At this time I will not be fulfilling her request of oxycodone 10 mg t.i.d.. 22:05 physician observation started at this time. Case Management PT consult pending Sign out to Dr. Cortés MDM - Fall Differential Diagnosis Differential diagnosis: Likely syncope, dislocation, fracture and concussion with loss of consciousness Medical Records Attestation: I reviewed the patient's medical records. Imaging Data CT head cervical spine: Attestation: I personally reviewed and interpreted this imaging study as follows: Radiologist's impression: FINDINGS: HEAD: No intra or extra-axial fluid collection, hemorrhage, or mass. No ventriculomegaly. No midline shift or herniation. Basal cisterns are patent. Carlton-white matter differentiation is maintained. No territorial encephalomalacia. ?Proportional prominence of the ventricles and sulcal spaces is consistent with mild volume loss. Patchy periventricular and deep white matter hypoattenuation is consistent with mild small vessel ischemic changes. No calvarial fracture or soft tissue abnormality.? The mastoid air cells and visualized portions of the paranasal sinuses are well aerated. CERVICAL SPINE: Alignment: Normal. No subluxation. Vertebra: No acute fracture. No prevertebral soft tissue swelling. Degenerative disc disease: Moderate disc height loss with endplate sclerosis and proliferative change at C3-C4, unchanged. Intervertebral disc heights otherwise are maintained. Other findings: No cervical lymphadenopathy. Visualized major salivary glands and thyroid gland are unremarkable. Visualized lung apices are clear. CT/CT head/brain wo con IMPRESSION: ? 1. No intracranial hemorrhage or calvarial fracture. 2. No traumatic subluxation or acute cervical spine fracture. Discharge Plan Discharge Clinical Impression: Fall Patient Disposition: Home, Self-Care Instructions: Fall Prevention (ED) Additional Instructions: You were evaluated for injuries sustained from a fall. CT scan of head and cervical spine are negative for acute findings. Follow-up with primary care physician and neurologist as needed. Thank you for choosing this emergency department for evaluation. Please follow-up with primary care physician as needed. Return to the emergency department for any new, concerning, or worsening symptoms. Prescriptions: No Action amlodipine 5 mg Tablet 5 mg PO DAILY 30 Days Qty: 30 0RF Protocol: Hold for SBP< HOLD for SBP < : 90 divalproex 500 mg Tablet,Delayed Release (Dr/Ec) 500 mg PO BID 30 Days Qty: 60 0RF albuterol sulfate [Ventolin HFA] 90 mcg/actuation HFA aerosol inhaler 2 puff inhalation Q6H PRN (Reason: Shortness Of Breath) quetiapine 300 mg tablet 1 tab PO BEDTIME trazodone 100 mg tablet 1 tab PO BEDTIME loratadine 10 mg tablet 1 tab PO DAILY
[2022-04-05 18:57] VITALS: BP 146/87; PULSE 100; RESP 18; TEMP 36.8; O2SAT 100
--- NOTE | 2022-04-05 21:06 | PHA.MEDREC ---
Pharmacy Consult ? Medication Reconciliation Pharmacy has completed the medication reconciliation. Unable to confirm directions on several medications due to pt's pharmacy being closed. Ed provider notified.
--- NOTE | 2022-04-05 21:47 | MHC.CM.ED ---
CM met with patient at request of Stephanie CLARK. Pt is requesting STR. C/O generalized body aches and MS flare . No PCP. States has appointment with PCP at [facility]. Lives with and daughter. HCP on file. HCP/ Moustapha Durán ([phone]). Pt states clean and sober for past 22 months. HX cocaine misuse. Pt lives at [facility]. J&J and Pfizer booster. Uses a cane/electric W/C. Has [employer]. No home services. PT is pending. Referrals placed locally. Pt requesting facilities in [facility]. Pt aware that facilities must be contracted with [employer]. [place] given. PT is pending. CM to follow for d/c needs.
--- NOTE | 2022-04-05 23:29 | PC.NURSE ---
attempted to medicate pt, pt sleeping, rousable but declined to sit up and take medication.
[2022-04-06] VITALS: BP 148/98; PULSE 103; RESP 16; TEMP 36.5; O2SAT 100
[2022-04-06 00:41] LABS: COVID-19 Test Negative (Negative)
[2022-04-06 08:22] VITALS: BP 113/63; PULSE 107; RESP 12; TEMP 36.1; O2SAT 100
--- NOTE | 2022-04-06 08:23 | PC.NURSE ---
took patient to bathroom and gave her a sponge bath .bed made
[2022-04-06] MEDS: amLODIPine Besylate 5 MG TABLET PO (08:24)
[2022-04-06] MEDS: Divalproex Sodium 500 MG TABLET.DR PO ×2 (08:24→20:49)
[2022-04-06] MEDS: Loratadine 10 MG TABLET PO (08:25)
--- NOTE | 2022-04-06 09:19 | MHC.CM.ED ---
Addendum entered by Elisa Syed 04/06/22 12:13: No bed offers made at this time. Met with patient. Patient is agreeable to referral being broadcasted further. Referral broadcasted throughout entire state to call facilities that are contracted with patient's insurance. Original Note: Patient remains in ER. Physical therapy completed. Short term rehab is being recommended. Patient is well known to case management. Unfortunately she will be difficult to place because of previous substance abuse history and has signed out of multiple facilities AMA. Referral broadcasted within 15 miles of patient's residence. If a facility is found, [facility] exemption letter will be needed. Continue to monitor for d/c needs.
[2022-04-06] MEDS: LORazepam 1 MG TABLET PO ×2 (11:36→16:49)
[2022-04-06] MEDS: Omeprazole 40 MG CAPSULE.DR PO (11:36)
[2022-04-06] MEDS: Gabapentin 400 MG CAPSULE 800 MG PO (12:00)
[2022-04-06 13:54] VITALS: BP 130/70; PULSE 88; RESP 16; TEMP 36.8; O2SAT 98
[2022-04-06 14:41] VITALS: BP 134/99; PULSE 115; RESP 12; O2SAT 99
[2022-04-06] MEDS: Ketorolac Tromethamine 60 MG/2 ML VIAL IM (15:08)
[2022-04-06 16:00] VITALS: BP 134/70; PULSE 82; RESP 16; TEMP 36.6; O2SAT 98
--- NOTE | 2022-04-06 18:10 | PC.NURSE ---
PATIENT HAD 7 ICE CREAM AND 15 GRAM CRACKER AND CRANBERRY AND ALYSSA MIKE FOR SNACKS .
[2022-04-06] MEDS: traZODone HCL 100 MG TABLET PO (20:49)
[2022-04-06] MEDS: QUEtiapine Fumarate 300 MG TABLET PO (20:49)
[2022-04-06 22:00] VITALS: BP 146/77; PULSE 74; RESP 16; O2SAT 98
--- NOTE | 2022-04-06 22:11 | PC.NURSE ---
PATIENT DID NOT VOID ON MY SHIFT THIS EVENING , PATIENT STATED SHE IS INC BUT NOT WET AT THIS TIME REQUEST MORE FOOD
--- NOTE | 2022-04-06 22:19 | PC.NURSE ---
pt dry heaving in hallway a short while ago. pt is now eating saltines and drinking cranberry juice. pt asking for more saltines. this RN told pt that she should give her GI a rest after vomiting and eating immediatly after. pt asking anyone who walks by what their role is and for food, and to get her ativan. Per THREAD [facility]LLER pt has gotten 2 mg today which is what she is prescribed at this time
--- NOTE | 2022-04-07 02:53 | PC.NURSE ---
pt resting in bed no complaints at this time
--- NOTE | 2022-04-07 07:19 | MHC.CARE ---
Pt is a 46 y/o Yoruba speaking, female who presented to the ED yesterday via ambulance with a chief complaint of an MS flare with a fall, head trauma, and loss consciousness.? Patient states that she has had multiple falls with multiple episodes of loss consciousness.? Today, pt is being assessed for risk upon the request of Case Management. Pt is alert and oriented x4 and is assessed for risk in her room in the ED.? She is engaged in the risk assessment and is help seeking stating she wants to go to a facility for her leg and back pain.? Her eye contact and speech are unremarkable.? She reports good sleep and appetite and appeared pleased when breakfast arrived.? She describes her mood as poor attributing this to her struggles with leg and back pain, stating again she wishes to go to a facility to work on the leg and back pain.? Her affect varies.? She does not appear to be delusional or experiencing symptoms of psychosis.? She denies AVH, HI, SI, , and self-harm urges.? Insight, judgement, memory, concentration, and impulse control appear fair. Pt stated that she does not currently use substances though she did say that she is an ?Occasional? cocaine user with her last use ?A week or two ago.? Pt does not appear to be at risk at this time.
--- NOTE | 2022-04-07 07:44 | MHC.CM.ED ---
Patient remains in ER. No bed offers made yet. Referral brodcasted throughout entire [facility] to all facilities that are contracted with [facility]. 146 referrals made. If a bed is offered, patient will need [facility] exemption letter. This has already been submitted via fax to [facility]. Continue to monitor for d/c needs.
[2022-04-07 08:30] VITALS: BP 128/64; PULSE 109; RESP 13; O2SAT 98
[2022-04-07] MEDS: amLODIPine Besylate 5 MG TABLET PO (08:58)
[2022-04-07] MEDS: Loratadine 10 MG TABLET PO (08:59)
[2022-04-07] MEDS: Divalproex Sodium 500 MG TABLET.DR PO (08:59)
--- NOTE | 2022-04-07 09:26 | PC.NURSE ---
spoke with cm- still no placement available for pt
--- NOTE | 2022-04-07 12:04 | PC.NURSE ---
pt cleaning herself up in bathroom with minimal assistance
--- NOTE | 2022-04-07 13:29 | MHC.CM.ED ---
[facility] exemption letter obtained. No bed offers made yet. T/W reached out via telephone to all facilities that have not responded in [facility]. [facility] doesn't have a bed. [facility] might have a bed on 04/08. Clinical sent via fax. [facility] was contacted for [facility] and [place]. [facility] doesn't have a bed. T/W reached out to [facility] transitions of care nurse. She will ask special needs caregiver to contact to discuss other discharge options. Continue to monitor for d/c needs.
[2022-04-07] MEDS: LORazepam 1 MG TABLET PO (13:45)
[2022-04-07 15:46] VITALS: BP 139/84; PULSE 110; RESP 20; TEMP 36.7; O2SAT 99
--- NOTE | 2022-04-07 18:00 | MHC.CM.ED ---
Pt tells CM and TIFFANIE Fontenot that she no longer wants to go to [facility]. States she can go to her Aunt's, who lives on one level. Pt has cane, w/c. D/C paperwork given. Pt requesting to be d/c in w/c to waiting room. Pt has called her aunt for a ride. Will pick her up at 7pm. Pt happy to be leaving ED and is waiting to smoke.
== END 2022-04-07 17:41 | disposition home or self-care (01) ==
PROVIDERS: Nurse Practitioner Family; Emergency Provider Internal Medicine
DX: Z04.3 Encounter for examination and observation following other accident (principal); R51.9 Headache, unspecified; M54.2 Cervicalgia; I10 Essential (primary) hypertension; E11.9 Type 2 diabetes mellitus without complications; G35 Multiple sclerosis; J45.909 Unspecified asthma, uncomplicated; Z91.81 History of falling; Z20.822 Contact with and (suspected) exposure to COVID-19
CPT/HCPCS: 70450; 72125; 87635; 96372; 97162; 99284; 99285; J1885

== ENCOUNTER 2022-04-18 16:24 | Emergency (ER) | payer OTHER, SELFPAY ==
--- NOTE | ~2022-04-18 | CT_ITS ---
EXAMINATION: CT HEAD WITHOUT CONTRAST CLINICAL INFORMATION: Right-sided numbness and weakness COMPARISON: Head CT 04/05/2022 TECHNIQUE: Imaging was performed from the skull base to vertex without intravenous administration of contrast. This CT examination was performed using dose optimization techniques as appropriate, variously including the following: *Automated exposure control *Adjustment of mA and/or kV according to patient size (this includes techniques or standardized protocols for targeted exams where dose is matched to indication/reason for exam; i.e. extremities or head) *Use of iterative reconstruction technique Total exam dose length product: 743 mGy-cm FINDINGS: No intra or extra-axial fluid collection, hemorrhage, or mass. No ventriculomegaly. No midline shift or herniation. Basal cisterns are patent. Carlton-white matter differentiation is maintained. No territorial encephalomalacia. Proportional prominence of the ventricles and sulcal spaces is consistent with mild volume loss. Patchy periventricular and deep white matter hypoattenuation is consistent with mild small vessel ischemic changes. No calvarial fracture or soft tissue abnormality. The mastoid air cells and visualized portions of the paranasal sinuses are well aerated. CT/CT head/brain wo con IMPRESSION: 1. No acute intracranial pathology. 2. Unchanged mild cerebral atrophy and mild chronic small vessel ischemic white matter change.
--- NOTE | ~2022-04-18 | XR_ITS ---
EXAMINATION: XR CHEST CLINICAL INFORMATION: Syncope COMPARISON: Chest radiograph 02/23/2022 TECHNIQUE: Frontal view of the chest was obtained. FINDINGS: The heart and pulmonary vessels appear normal. No evidence of CHF The left hemidiaphragm is minimally elevated some minimal blunting of the left costophrenic angle could present. However, the lungs are better expanded than previously noted. No infiltrates or lung masses are seen. XR/XR chest 1V IMPRESSION: No acute intrathoracic disease. Question of a small left pleural effusion.
[2022-04-18 17:12] VITALS: BP 130/94; BP 150/100; PULSE 103; PULSE 105; RESP 20; TEMP 36.9; O2SAT 96; O2SAT 97; BMI 36.3
--- NOTE | 2022-04-18 21:48 | ED.WEAKNESS ---
HPI - Weakness General Chief complaint: Weakness Stated complaint: syncope/fall Time Seen by Provider: 04/18/22 21:44 History of Present Illness HPI Narrative: patient is a 46-year-old female with a history of Questionable multiple sclerosis. Previous history of cocaine use. Patient was admitted to the hospital in the past for steroid treatment. Presented today with generalized malaise weakness. had a syncopal episode. Denies any chest pain during that episode. Now patient is complaining of weakness to the right arm. Weakness to the right leg. Changes in vision. Patient from home. No fever no chills. The symptoms started yesterday. The symptoms are very similar to previous bouts of MS. No cough no congestion or upper respiratory symptoms. Patient previously has refuse to get MRI for her MS diagnosis. Denies any new medications. Denies recreational drug use today. Related Data Home Medications Medication Instructions Recorded Confirmed albuterol sulfate 90 mcg/actuation 2 puff inhalation Q6H PRN 02/10/22 04/05/22 aerosol inhaler (Ventolin HFA) Shortness Of Breath loratadine 10 mg tablet 1 tab PO DAILY 03/24/22 04/05/22 quetiapine 300 mg tablet 1 tab PO BEDTIME 03/24/22 04/05/22 trazodone 100 mg tablet 1 tab PO BEDTIME 03/24/22 04/05/22 Previous Rx's Medication Instructions Recorded amlodipine 5 mg tablet 5 mg PO DAILY 30 days #30 tabs 09/07/21 divalproex 500 mg tablet,delayed 500 mg PO BID 30 days #60 tabs 09/07/21 release Allergies Allergy/AdvReac Type Severity Reaction Status Date / Time Iodinated Contrast Media Allergy Severe ANAPHYLAXIS Verified 09/14/21 07:09 [CONTRAST, IV] ibuprofen [From Motrin] Allergy Intermediate SWELLING Verified 09/14/21 07:09 morphine [MORPHINE] Allergy Intermediate RASH Verified 09/14/21 07:09 acetaminophen [From TYLENOL] Allergy Mild HIVES Verified 09/14/21 07:09 bee pollen [Bee Stings] Allergy Mild UNKNOWN Verified 09/14/21 07:09 coconut Allergy Mild HIVES/SWELL Verified 09/14/21 07:09 ING latex [Latex] Allergy Mild HIVES Verified 09/14/21 07:09 NSAIDS (Non-Steroidal Allergy Mild HIVES Verified 09/14/21 07:09 Anti-Inflamma [NSAIDS (NON-STEROIDAL ANTI-INFLAMMA] aspirin [ASA] Allergy Unknown HIVES Verified 09/14/21 07:09 tramadol [TRAMADOL] Allergy Unknown UNKNOWN Verified 09/14/21 07:09 turkey Allergy Unknown UNKNOWN Verified 09/14/21 07:09 lidocaine Allergy Rash Verified 09/14/21 07:09 Peppers, Green Allergy Shortness Verified 09/14/21 07:09 of Breath Peppers, Jalapeno Allergy Shortness Verified 09/14/21 07:09 of Breath Peppers, Red Allergy Shortness Verified 09/14/21 07:09 of Breath Peppers, Yellow Allergy Shortness Verified 09/14/21 07:09 of Breath From Vicodin Allergy Mild RASH Uncoded 06/13/21 20:16 Review of Systems Review of Systems: no fever no chills no cough no congestion or respiratory symptoms Yes all other systems are reviewed and are negative PMFSH Past Medical History Attestation statement: The following information was validated with the patient. Medical History Alcohol abuse Asthma section wound complication Cocaine abuse Diabetes Fall GERD (gastroesophageal reflux disease) History of seizure Hypertension MDD (major depressive disorder), recurrent episode, severe Multiple sclerosis Multiple sclerosis Multiple sclerosis exacerbation Personality disorder in adult Post traumatic stress disorder (PTSD) Surgical History History of left ankle joint replacement History of thoracic surgery Social History Social History Household Members: Spouse Housing: Other Housing Other:: Living in hotel Do you presently have visiting nurse or other home services: No Alcohol intake: never Patient Tobacco Use Status: Never used Tobacco Tobacco use type: Cigarette Cigarette Packs Per Day: 0.5 Cigarettes Per Day: 5 Years Smoked: 26 e-Cigarette/Vaping Use: Never Used Second Hand Smoke Exposure: Yes ( also a smoker) Use of substances other than those prescribed or required for medical reasons: No Substance Use Type: Former Substance User Advance Directives: Yes Advance Directives on File: Yes Advance Directives Date on File: 08/25/20 Patient : No service: No Sexual orientation: Did not discuss Physical Exam Vital Signs: Vital Signs: Last Vital Signs Temp 98.4 F 04/18/22 17:12 Pulse 103 H 04/18/22 17:12 Resp 20 04/18/22 17:12 BP 130/94 H 04/18/22 17:12 Pulse Ox 96 04/18/22 17:12 O2 Del Method 04/18/22 17:12 BMI result Body Mass Index 36.3 Appearance: Alert. Oriented X3. No acute distress. Eyes: Pupils equal, round and reactive to light. ENT: Pharynx normal. Neck: Normal inspection. Neck supple. No lymph nodes noted. No crepitus CVS: Normal heart rate and rhythm. Pulses normal. Normal S1 and S2 Respiratory: No respiratory distress. Breath sounds normal. No Wheezing. No rales Abdomen: Soft and nontender. No rigidity. No distention. good BS x4 Skin: Skin warm and dry. Normal skin color. Normal skin turgor. Extremities: No lower extremity edema. Neurovascular intact to all extremities. No Lacerations. No Rash Neuro: Oriented X 3. patient complaining of weakness to the right upper extremity. Unable to lift up the extremity against gravity. However when her arm is dropped again her face patient was able to void. Complaining of extreme weakness to the lower extremity. There is resistance to lifting her leg. Patient has no slurred speech. no facial asymmetry. Pupils are equal reactive. MDM - Weakness MDM Narrative Medical decision making narrative: I want to get a while with getting blood drawn on the patient. Patient was noticed to be moving about. Using the week right upper extremity completely. Able to make phone calls with her cellphone using her right hand. No weakness at all. Question secondary gain. Patient has no facial droop. Now has complete use of the arm. Patient refused further blood work. Wants to leave. patient was noticed by staff to be able to take steps in order to get onto the bed. Noticed by staff to be going to the bathroom. In stable condition. Medical Records Attestation: I reviewed the patient's medical records. Lab Data Attestation: I reviewed the patient's lab results. Discharge Plan Discharge Clinical Impression: Weakness Patient Disposition: Home, Self-Care Instructions: Weakness (ED) Prescriptions: No Action amlodipine 5 mg Tablet 5 mg PO DAILY 30 Days Qty: 30 0RF Protocol: Hold for SBP< HOLD for SBP < : 90 divalproex 500 mg Tablet,Delayed Release (Dr/Ec) 500 mg PO BID 30 Days Qty: 60 0RF albuterol sulfate [Ventolin HFA] 90 mcg/actuation HFA aerosol inhaler 2 puff inhalation Q6H PRN (Reason: Shortness Of Breath) quetiapine 300 mg tablet 1 tab PO BEDTIME trazodone 100 mg tablet 1 tab PO BEDTIME loratadine 10 mg tablet 1 tab PO DAILY Referrals: Physician,Unknown J [Primary Care Provider] -
--- NOTE | 2022-04-18 23:22 | PC.NURSE ---
pt was seen outside eating on the bench not in wheelchair, pt ambulated to her bed, pt seen texting using the arm she claimed was difficult to move due to her ms acting up. pt moves all extremities, refused labs, poc checked and was 89. pt is alert oriented x3 no s/s of distress. pt has been asking for blanket, crackers, pillow. all of which have been given. pt denies n/v/d. pt is ready for discharge.
[2022-04-18 23:24] LABS: Glucose, Whole Blood 82 mg/dL (60-115)
[2022-04-18 23:24] LABS: Basophils Percent Auto 0.2 % (0-2); Hemoglobin 9.7 g/dl (12.0-16.0); Monocytes Absolute Auto 0.6 X10*3/uL (0.1-1.2); Monocytes Percent Auto 6.8 % (2-11); PLT ABN DIST 1; Red Cell Distribution Width 20.2 % (11.0-16.0); SCAN SMEAR FLAG 1
[2022-04-18 23:25] LABS: Eosinophils Percent Auto 0.5 % (0-4); Hematocrit 32.1 % (37.0-47.0); Imm Gran Abs Auto 0.28 X10*3/uL (0.00-0.03); Imm Gran Pct Auto 3.3 % (0.0-0.4); Lymphocytes Absolute Auto 2.2 X10*3/uL (1.2-4.9); Lymphocytes Percent Auto 26.2 % (20-40); Mean Corpuscular HGB Conc 30.2 g/dl (31.0-35.0); Mean Corpuscular Hemoglobin 24.6 pg (27.0-33.0); Mean Corpuscular Volume 81.5 fL (80.0-98.0); Mean Platelet Volume 11.2 fL (9.4-12.3); NRBC Pct Auto 0.7 /100WBC (0.0-0.2); Neutrophils Absolute Auto 5.3 x10*3/uL (2.0-8.3); Platelet Count 208 X10*3/uL (160-400); Red Blood Count 3.94 X10*6/uL (4.20-5.50); White Blood Count 8.4 X10*3/uL (4.8-10.8)
[2022-04-18 23:29] LABS: MANUAL DIFF FLAG NO
[2022-04-18 23:38] LABS: Anion Gap 12 (12-20); Blood Urea Nitrogen 8 mg/dL (9-16); Carbon Dioxide 26 mmol/L (22-29); Chloride 106 mmol/L (96-108); Estimated Glomerular Filt Rate > 60; Glucose Random 85 mg/dL (60-115); Potassium 4.4 mmol/L (3.3-5.1); Sodium 140 mmol/L (135-145)
[2022-04-18 23:40] LABS: COVID-19 Test Negative (Negative)
[2022-04-18 23:58] LABS: Troponin-I High Sensitivity < 3.5 ng/L (<3.5-17.0)
== END 2022-04-18 23:26 | disposition home or self-care (01) ==
PROVIDERS: Emergency Provider Emergency Medicine Emergency Medical Services
DX: R55 Syncope and collapse (principal); M62.81 Muscle weakness (generalized); F17.210 Nicotine dependence, cigarettes, uncomplicated; Z71.6 Tobacco abuse counseling; Z20.822 Contact with and (suspected) exposure to COVID-19; Z79.899 Other long term (current) drug therapy
CPT/HCPCS: 36415; 70450; 71045; 80048; 82947; 84484; 85025; 87635; 99284

== ENCOUNTER 2022-04-18 23:43 | Emergency (ER) | payer OTHER, SELFPAY ==
[2022-04-19 01:13] VITALS: BP 152/87; PULSE 83; RESP 18; TEMP 36; O2SAT 98; BMI 36.3
--- NOTE | 2022-04-19 03:10 | ED.PSYCH ---
HPI - Psych General Chief Complaint: Psychiatric Symptoms Stated Complaint: SI, was just discharged Time Seen by Provider: 04/19/22 03:10 History of Present Illness HPI Narrative: Patient was just discharged. Presents today after being discharged of trying to run into traffic. Patient claims now she wants to kill herself. Patient denies any specific pain. She just left the hospital Related Data Home Medications Medication Instructions Recorded Confirmed albuterol sulfate 90 mcg/actuation 2 puff inhalation Q6H PRN 02/10/22 04/05/22 aerosol inhaler (Ventolin HFA) Shortness Of Breath loratadine 10 mg tablet 1 tab PO DAILY 03/24/22 04/05/22 quetiapine 300 mg tablet 1 tab PO BEDTIME 03/24/22 04/05/22 trazodone 100 mg tablet 1 tab PO BEDTIME 03/24/22 04/05/22 Previous Rx's Medication Instructions Recorded amlodipine 5 mg tablet 5 mg PO DAILY 30 days #30 tabs 09/07/21 divalproex 500 mg tablet,delayed 500 mg PO BID 30 days #60 tabs 09/07/21 release Allergies Allergy/AdvReac Type Severity Reaction Status Date / Time Iodinated Contrast Media Allergy Severe ANAPHYLAXIS Verified 09/14/21 07:09 [CONTRAST, IV] ibuprofen [From Motrin] Allergy Intermediate SWELLING Verified 09/14/21 07:09 morphine [MORPHINE] Allergy Intermediate RASH Verified 09/14/21 07:09 acetaminophen [From TYLENOL] Allergy Mild HIVES Verified 09/14/21 07:09 bee pollen [Bee Stings] Allergy Mild UNKNOWN Verified 09/14/21 07:09 coconut Allergy Mild HIVES/SWELL Verified 09/14/21 07:09 ING latex [Latex] Allergy Mild HIVES Verified 09/14/21 07:09 NSAIDS (Non-Steroidal Allergy Mild HIVES Verified 09/14/21 07:09 Anti-Inflamma [NSAIDS (NON-STEROIDAL ANTI-INFLAMMA] aspirin [ASA] Allergy Unknown HIVES Verified 09/14/21 07:09 tramadol [TRAMADOL] Allergy Unknown UNKNOWN Verified 09/14/21 07:09 turkey Allergy Unknown UNKNOWN Verified 09/14/21 07:09 lidocaine Allergy Rash Verified 09/14/21 07:09 Peppers, Green Allergy Shortness Verified 09/14/21 07:09 of Breath Peppers, Jalapeno Allergy Shortness Verified 09/14/21 07:09 of Breath Peppers, Red Allergy Shortness Verified 09/14/21 07:09 of Breath Peppers, Yellow Allergy Shortness Verified 09/14/21 07:09 of Breath From Vicodin Allergy Mild RASH Uncoded 06/13/21 20:16 Review of Systems Review of Systems: no fever no chills no cough PMFSH Past Medical History Attestation statement: The following information was validated with the patient. Medical History Alcohol abuse Asthma section wound complication Cocaine abuse Diabetes Fall GERD (gastroesophageal reflux disease) History of seizure Hypertension MDD (major depressive disorder), recurrent episode, severe Multiple sclerosis Multiple sclerosis Multiple sclerosis exacerbation Personality disorder in adult Post traumatic stress disorder (PTSD) Surgical History History of left ankle joint replacement History of thoracic surgery Social History Social History Household Members: Spouse Housing: Other Housing Other:: Living in hotel Do you presently have visiting nurse or other home services: No Alcohol intake: never Patient Tobacco Use Status: Never used Tobacco Tobacco use type: Cigarette Cigarette Packs Per Day: 0.5 Cigarettes Per Day: 5 Years Smoked: 26 e-Cigarette/Vaping Use: Never Used Second Hand Smoke Exposure: Yes ( also a smoker) Substance Use Type: Former Substance User Advance Directives: Yes Advance Directives on File: Yes Advance Directives Date on File: 08/25/20 service: No Sexual orientation: Did not discuss Physical Exam Vital Signs: Vital Signs: Last Vital Signs Temp 96.8 F 04/19/22 01:13 Pulse 83 04/19/22 01:13 Resp 18 04/19/22 01:13 BP 152/87 H 04/19/22 01:13 Pulse Ox 98 04/19/22 01:13 O2 Del Method 04/19/22 01:13 BMI result Body Mass Index 36.3 Appearance: Alert. Oriented X3. No acute distress. Eyes: Pupils equal, round and reactive to light. ENT: Pharynx normal. Neck: Normal inspection. Neck supple. No lymph nodes noted. No crepitus CVS: Normal heart rate and rhythm. Pulses normal. Normal S1 and S2 Respiratory: No respiratory distress. Breath sounds normal. No Wheezing. No rales Abdomen: Soft and nontender. No rigidity. No distention. good BS x4 Skin: Skin warm and dry. Normal skin color. Normal skin turgor. Extremities: No lower extremity edema. Neurovascular intact to all extremities. No Lacerations. No Rash Neuro: Oriented X 3. No motor deficit. No sensory deficit. Moving all extermities. No slurred speech MDM - Psych MDM Narrative Medical decision making narrative: well-appearing no acute distress moving all extremities at this point. Will get crisis evaluate patient. Discharge Plan Discharge Clinical Impression: Suicidal behavior Patient Disposition: Still a Patient Prescriptions: No Action amlodipine 5 mg Tablet 5 mg PO DAILY 30 Days Qty: 30 0RF Protocol: Hold for SBP< HOLD for SBP < : 90 divalproex 500 mg Tablet,Delayed Release (Dr/Ec) 500 mg PO BID 30 Days Qty: 60 0RF albuterol sulfate [Ventolin HFA] 90 mcg/actuation HFA aerosol inhaler 2 puff inhalation Q6H PRN (Reason: Shortness Of Breath) quetiapine 300 mg tablet 1 tab PO BEDTIME trazodone 100 mg tablet 1 tab PO BEDTIME loratadine 10 mg tablet 1 tab PO DAILY
--- NOTE | 2022-04-19 06:14 | PC.NURSE ---
pt discharged from [facility] ED and immediately returned stating SI w plan to ride wheelchair into street. pt refused to get changed/vitals/labs. pt sleeping, RR even and unlabored.
[2022-04-19 09:40] LABS: MANUAL DIFF FLAG NO
[2022-04-19 09:41] LABS: Basophils Percent Auto 0.3 % (0-2); Eosinophils Percent Auto 0.5 % (0-4); Hematocrit 33.4 % (37.0-47.0); Hemoglobin 10.4 g/dl (12.0-16.0); Imm Gran Abs Auto 0.15 X10*3/uL (0.00-0.03); Imm Gran Pct Auto 2.5 % (0.0-0.4); Lymphocytes Absolute Auto 1.6 X10*3/uL (1.2-4.9); Lymphocytes Percent Auto 26.8 % (20-40); Mean Corpuscular HGB Conc 31.1 g/dl (31.0-35.0); Mean Corpuscular Hemoglobin 25.4 pg (27.0-33.0); Mean Corpuscular Volume 81.7 fL (80.0-98.0); Mean Platelet Volume 10.5 fL (9.4-12.3); Monocytes Absolute Auto 0.5 X10*3/uL (0.1-1.2); Monocytes Percent Auto 7.5 % (2-11); NRBC Pct Auto 0.3 /100WBC (0.0-0.2); Neutrophils Absolute Auto 3.8 x10*3/uL (2.0-8.3); Neutrophils Percent Auto 62.4 % (45-73); Platelet Count 206 X10*3/uL (160-400); Red Blood Count 4.09 X10*6/uL (4.20-5.50); Red Cell Distribution Width 20.2 % (11.0-16.0); White Blood Count 6.1 X10*3/uL (4.8-10.8)
[2022-04-19 09:55] LABS: Ethanol < 10 mg/dL
[2022-04-19 10:15] VITALS: BP 142/91; PULSE 110; RESP 16; TEMP 36.7; O2SAT 95
[2022-04-19 11:39] LABS: UPreg QC Valid YES; Urine Pregnancy NEGATIVE (NEGATIVE)
[2022-04-19 11:52] LABS: COVID-19 Test Negative (Negative); IDNOW Serial# 08D9AD1C
[2022-04-19 11:53] LABS: Barbiturates, Urine Not Detected (Not Detect); Cannabinoid Screen Urine Not Detected (Not Detect); Fentanyl, urine Not Detected (Not Detect)
[2022-04-19 11:55] LABS: Amphetamine Screen Urine POSITIVE (Not Detect); Benzodiazepines Screen Urine Not Detected (Not Detect); Cocaine Screen Urine POSITIVE (Not Detect); Opiate Screen Urine Not Detected (Not Detect); Phencyclidine Screen Urine Not Detected (Not Detect)
[2022-04-19 12:50] VITALS: BP 182/90; PULSE 91; RESP 14; O2SAT 98
[2022-04-19 15:51] VITALS: BP 129/80; PULSE 85; RESP 16; TEMP 36.1; O2SAT 98
--- NOTE | 2022-04-19 16:33 | MHC.CARE ---
CARE Team met with patient in 13 H for risk assessment, she was discharged this morning after coming in with the compliant of weakness and then came back immediately and reported suicidal ideation. Patient is well known to [facility] through numerous presentations for pain/MS symptoms, anxiety, and depression. She seems to be a poor historian and with limited insight, questionable judgment and at baseline has suicidal ideation goal directed at being hospitalized. Patient struggles to identify treatment goals and follow through with recommendations following discharges. Has no documented history of suicide attempts, at this time does not appear to be in a psychiatric crisis, does not meet the criteria for inpatient admission. Patient stated that the hotel she was living at is not an option as of now the [employer] is no longer covering that cost. She said they gave her a voucher for a two bedroom apartment that she and her partner have to find. Patient called her insurance company and she relayed that they will cover the cost or [facility] or put her in their own respite. DEMETRIO (manufactured buildings supervisor Marlen) will evaluate patient at the [facility] and they will make treatment recommendations and can also provide urgent appointments for therapy and medication. CARE Team will refer patient to [facility] and follow up with her by phone within 24-48 hrs, LYFT arranged to transport patient home. Disposition discussed with manufactured buildings supervisor MICHAEL Laureano and ED provider CAROL Schwab
== END 2022-04-19 16:44 | disposition home or self-care (01) ==
PROVIDERS: Physician Assistant Medical; Emergency Provider Emergency Medicine Emergency Medical Services
DX: R45.851 Suicidal ideations (principal); F17.210 Nicotine dependence, cigarettes, uncomplicated; Z71.6 Tobacco abuse counseling; Z20.822 Contact with and (suspected) exposure to COVID-19; Z79.899 Other long term (current) drug therapy
CPT/HCPCS: 80307; 81025; 82077; 85025; 87635; 99284; 99285

== ENCOUNTER 2022-04-20 14:18 | Emergency (ER) | payer OTHER, SELFPAY ==
--- NOTE | ~2022-04-20 | CT_ITS ---
EXAMINATION: CT HEAD WITHOUT CONTRAST CLINICAL INFORMATION: Right arm weakness COMPARISON: Previous head CT most recent 04/18/2022 TECHNIQUE: Contiguous axial imaging was performed from the skull base to vertex without intravenous administration of contrast. This CT examination was performed using dose optimization techniques as appropriate, variously including the following: *Automated exposure control *Adjustment of mA and/or kV according to patient size (this includes techniques or standardized protocols for targeted exams where dose is matched to indication/reason for exam; i.e. extremities or head) *Use of iterative reconstruction technique DLP: 1134 mGy-cm FINDINGS: There is no evidence of an extra-axial collection. There is no evidence of intra-axial or extra-axial hemorrhage. Ventricles and extra-axial CSF spaces are prominent for the patient's age suggestive of mild generalized atrophy. There is mild nonspecific periventricular white matter disease. No mass, mass effect or infarct is seen. Review at bone window is normal. No skull fracture is seen. Visualized paranasal sinuses, mastoid air cells and middle ears are clear. CT/CT head/brain wo con IMPRESSION: No acute findings and no change from previous exam.
[2022-04-20 14:28] VITALS: BP 146/107; PULSE 100; RESP 18; TEMP 37; O2SAT 97; BMI 36.3
--- NOTE | 2022-04-20 14:37 | ECG_ITS ---
Test Reason : STROKE SYMPTOMS Blood Pressure : / mmHG Vent. Rate : 100 BPM Atrial Rate : 100 BPM P-R Int : 148 ms QRS Dur : 090 ms QT Int : 346 ms P-R-T Axes : 055 -22 069 degrees QTc Int : 446 ms Normal sinus rhythm Minimal voltage criteria for LVH, may be normal variant ( [place] product ) Nonspecific ST and T wave abnormality Possible Anterior infarct (cited on or before 24-FEB-2022) Abnormal ECG When compared with ECG of 24-FEB-2022 20:44, No significant change was found Referred By: Marlen Grace Electronically Signed By:MARITZA BASURTO MD
--- NOTE | 2022-04-20 14:39 | ED_ITS ---
HPI - General Adult General Chief complaint: General Medical Stated complaint: ?STROKE Time Seen by Provider: 04/20/22 14:19 Source: patient and EMS Mode of arrival: EMS Limitations: no limitations History of Present Illness HPI narrative: Patient comes to the emergency room via EMS. Patient was picked up at her [facility]. 30 minutes prior to arrival, the patient called EMS stating that she had right-sided mouth drooping and right arm weakness. When patient arrived to emergency room, patient complaining of right-sided deficits. Patient denies headache, no chest pain or shortness of breath. Patient was assessed immediately upon arrival, the initial physical exam was not consistent with stroke or TIA. Patient states that she is having an MS flare. However, patient has not been formally diagnosed with multiple sclerosis. MRIs have been requested but the patient always refuses. Related Data Home Medications Medication Instructions Recorded Confirmed albuterol sulfate 90 mcg/actuation 2 puff inhalation Q6H PRN 02/10/22 04/05/22 aerosol inhaler (Ventolin HFA) Shortness Of Breath loratadine 10 mg tablet 1 tab PO DAILY 03/24/22 04/05/22 quetiapine 300 mg tablet 1 tab PO BEDTIME 03/24/22 04/05/22 trazodone 100 mg tablet 1 tab PO BEDTIME 03/24/22 04/05/22 Previous Rx's Medication Instructions Recorded amlodipine 5 mg tablet 5 mg PO DAILY 30 days #30 tabs 09/07/21 divalproex 500 mg tablet,delayed 500 mg PO BID 30 days #60 tabs 09/07/21 release Allergies Allergy/AdvReac Type Severity Reaction Status Date / Time Iodinated Contrast Media Allergy Severe ANAPHYLAXIS Verified 09/14/21 07:09 [CONTRAST, IV] ibuprofen [From Motrin] Allergy Intermediate SWELLING Verified 09/14/21 07:09 morphine [MORPHINE] Allergy Intermediate RASH Verified 09/14/21 07:09 acetaminophen [From TYLENOL] Allergy Mild HIVES Verified 09/14/21 07:09 bee pollen [Bee Stings] Allergy Mild UNKNOWN Verified 09/14/21 07:09 coconut Allergy Mild HIVES/SWELL Verified 09/14/21 07:09 ING latex [Latex] Allergy Mild HIVES Verified 09/14/21 07:09 NSAIDS (Non-Steroidal Allergy Mild HIVES Verified 09/14/21 07:09 Anti-Inflamma [NSAIDS (NON-STEROIDAL ANTI-INFLAMMA] aspirin [ASA] Allergy Unknown HIVES Verified 09/14/21 07:09 tramadol [TRAMADOL] Allergy Unknown UNKNOWN Verified 09/14/21 07:09 turkey Allergy Unknown UNKNOWN Verified 09/14/21 07:09 lidocaine Allergy Rash Verified 09/14/21 07:09 Peppers, Green Allergy Shortness Verified 09/14/21 07:09 of Breath Peppers, Jalapeno Allergy Shortness Verified 09/14/21 07:09 of Breath Peppers, Red Allergy Shortness Verified 09/14/21 07:09 of Breath Peppers, Yellow Allergy Shortness Verified 09/14/21 07:09 of Breath From Vicodin Allergy Mild RASH Uncoded 06/13/21 20:16 Review of Systems Review of Systems: Constitutional : No Weight loss, No Fever, No Chills, No Night Sweats, No Fatigue, No Malaise ENT/Mouth : No Hearing loss, No Ear Pain, No Nasal Congestion, No Sinus Pain, No Hoarseness, No sore throat, No Rhinorrhea, No Swallowing Difficulty Eyes: No Eye Pain, No Swelling, No Redness, No Foreign Body, No Discharge, No Vision Changes Cardiovascular : No Chest Pain, No SOB, No Dyspnea on Exertion, No Orthopnea, No Edema, No Palpitations Respiratory : No Cough, No Sputum, No Wheezing, No Smoke Exposure, No Dyspnea Gastrointestinal : No Nausea, No Vomiting, No Diarrhea, No Constipation, No abdominal Pain, No Hematochezia, No Melena Genitourinary : no irregular bleeding, No Dysuria, No Urinary Frequency, No Hematuria, No Urinary Incontinence, No Urgency, No Flank Pain, No Urinary Flow Changes, No Hesitancy Musculoskeletal : No joint pain, No Myalgias, No Joint Swelling Skin : No Skin Lesions, No rash Neuro : No headache, no dizziness, complaining of right-sided mouth drooping and right arm weakness Psych : No Anxiety/Panic, No Depression, No SI/HI/AH/VH, No Social Issues, Heme/Lymph: No Bruising, No Bleeding,No Lymphadenopathy Endocrine : No Polyuria, No Polydipsia, No Temperature Intolerance PMFSH Past Medical History Medical History Alcohol abuse Asthma section wound complication Cocaine abuse Diabetes Fall GERD (gastroesophageal reflux disease) History of seizure Hypertension MDD (major depressive disorder), recurrent episode, severe Multiple sclerosis Multiple sclerosis Multiple sclerosis exacerbation Personality disorder in adult Post traumatic stress disorder (PTSD) Surgical History History of left ankle joint replacement History of thoracic surgery Social History Social History Household Members: Spouse Housing: Other Housing Other:: Living in hotel Do you presently have visiting nurse or other home services: No Alcohol intake: never Patient Tobacco Use Status: Never used Tobacco Tobacco use type: Cigarette Cigarette Packs Per Day: 0.5 Cigarettes Per Day: 5 Years Smoked: 26 e-Cigarette/Vaping Use: Never Used Second Hand Smoke Exposure: Yes ( also a smoker) Substance Use Type: Former Substance User Advance Directives: Yes Advance Directives on File: Yes Advance Directives Date on File: 08/25/20 service: No Sexual orientation: Did not discuss Physical Exam ED Vital Signs: Vital Signs - 24 hr 04/20/22 14:28 Temperature 98.6 F Pulse Rate 100 Respiratory Rate 18 Blood Pressure 146/107 H Pulse Oximetry 97 Oxygen Delivery Method Room Air BMI result Body Mass Index 36.3 Const Other: Appearance: Alert. Oriented X3. No acute distress. Eyes: Pupils equal, round and reactive to light. ENT: Pharynx normal. Neck: Normal inspection. Neck supple. No lymph nodes noted. No crepitus CVS: Normal heart rate and rhythm. Pulses normal. Normal S1 and S2 Respiratory: No respiratory distress. Breath sounds normal. No Wheezing. No rales Abdomen: Soft and nontender. No rigidity. No distention. Skin: Skin warm and dry. Normal skin color. Normal skin turgor. Extremities: No lower extremity edema. No Lacerations. No Rash Neuro: Oriented X 3. On arrival, patient had right-sided mouth drooping, complete right arm weakness , patient was seen moving her right arm, patient right side of the mouth is at times normal. Patient has inconsistent right-sided deficits. Psych: calm, cooperative, normal affect Course Course Course Narrative: The physical exam for stroke is very inconsistent. I do not think that the patient has either a TIA or a stroke. I discussed with the patient that I do not think this is neurological. Patient states that she has an MS flare. I reviewed the patient's past medical records and neurology notes, patient has been evaluated by Neurology, last time in March 082021, patient refused an MRI, patient does not have a formal diagnosis of multiple sclerosis, her symptoms self resolve without any treatment. Patient has an extensive psychiatric history. Patient is in CT scan now. We cannot do a CTA because the patient has anaphylaxis to IV contrast. I was informed by the staff that the patient was discharged from here yesterday. They had a very difficult time sending the patient home. Patient kept threatening to kill herself if she would be sent home. Patient known to be homeless and did not want to return to the hotel where she currently resides. So far today, the patient has not made any SI or HI comments. However, every time that the patient is informed that she is being discharged, she states that she is suicidal. Therefore, we are expecting that the patient will eventually verbalized that she is suicidal and wants a N consult. Unfortunately, this has become a pattern. Dr. Garcia evaluated the patient. At this time, Stroke/TIA is not suspected On repeat physical exam, patient has no neurological symptoms, patient has no drift in upper extremities, patient has no mouth drooping. Patient states that she is in chronic pain and that is the reason that she does not want to home. I discussed with the patient that managing chronic pain in the emergency room is not possible. Patient needs a close follow-up with the Pain Clinic. I discussed with the patient that Dr. Garcia recommends an MRI, which is non emergent at this time, and can be done as an outpatient. Patient does not have to be completely sedated as patient requested, the risks outweigh the benefits. Patient can be given p.o. medications if needed. For once again, this can be done as outpatient. No need to hospitalize or do an MRI from the emergency room. As we were talking about discharging the patient and getting her an appointment with neurology and for an MRI, patient started crying, states that she is suicidal and wants to see [facility]al [facility] consult has been requested. Our case management informed me that the patient told her that the patient cannot go back to [facility]. Patient stated that she had been told that if she keeps calling the ambulance, she will not be able to return to the hotel. Unclear if this is a true statement by the hotel. I was informed by the patient's nurse that they were able to get a chemistry but not a CBC. Patient is only allowing the techs to draw blood from certain veins, but not from the once they need to obtain blood. Patient had lab work yesterday, this time we will not obtain another CBC. From the urinalysis from yesterday, patient tested positive for amphetamines and cocaine. Patient to be seen by [facility] Physician observation started at 17:45 Medical Decision Making Lab Data Result diagrams: 04/20/22 17:12 04/20/22 17:12 Labs: Lab Results 04/20/22 04/20/22 Range/Units 16:40 17:12 Sodium 140 (135-145) mmol/L Potassium 4.2 (3.3-5.1) mmol/L Chloride 109 H (96-108) mmol/L Carbon Dioxide 20 L (22-29) mmol/L Anion Gap 15 (12-20) BUN 9 (9-16) mg/dL Creatinine 0.80 (0.5-1.4) mg/dL Estim Creat Clear Calc 120.6 Estimated GFR > 60 Random Glucose 133 H (60-115) mg/dL Calcium 8.8 (8.4-10.2) mg/dL Total Bilirubin 0.3 (0.0-1.0) mg/dL Direct Bilirubin < 0.2 (0.0-0.5) mg/dL AST 13 (5-31) U/L ALT 9 (0-31) U/L Alkaline Phosphatase 64 (39-117) U/L Total Protein 6.9 (6.5-8.0) g/dL Albumin 3.9 (3.5-5.0) g/dL COVID-19 (BRENDA) Negative (Negative) COVID-19 Clin Com See Note Imaging Data Head CT: Radiologist's impression: There is no evidence of an extra-axial collection. There is no evidence of intra-axial or extra-axial hemorrhage. Ventricles and extra-axial CSF spaces are prominent for the patient's age suggestive of mild generalized atrophy. There is mild nonspecific periventricular white matter disease. No mass, mass effect or infarct is seen. Review at bone window is? normal. No skull fracture is seen. Visualized paranasal sinuses, mastoid air cells and middle ears are clear. ? CT/CT head/brain wo con IMPRESSION: No acute findings and no change from previous exam. Discharge Plan Discharge Clinical Impression: Chronic pain, Anxiety, Malingering Patient Disposition: Still a Patient Prescriptions: No Action amlodipine 5 mg Tablet 5 mg PO DAILY 30 Days Qty: 30 0RF Protocol: Hold for SBP< HOLD for SBP < : 90 divalproex 500 mg Tablet,Delayed Release (Dr/Ec) 500 mg PO BID 30 Days Qty: 60 0RF albuterol sulfate [Ventolin HFA] 90 mcg/actuation HFA aerosol inhaler 2 puff inhalation Q6H PRN (Reason: Shortness Of Breath) quetiapine 300 mg tablet 1 tab PO BEDTIME trazodone 100 mg tablet 1 tab PO BEDTIME loratadine 10 mg tablet 1 tab PO DAILY
--- NOTE | 2022-04-20 15:52 | PM.NEUROCN ---
History of Present Illness Data of Consult Service Date: 04/20/22 Primary Care Provider: Unknown Physician HPI Reason for consult: Question stroke 46 years old woman with complicated neuropsychiatric history. There has been suspicion of multiple sclerosis, long history of alcohol and cocaine abuse, which she said she had stopped taking but her tox screen today was positive for cocaine. She had seen me in the past but she has been to multiple hospitals in this area and other areas of the state with almost similar symptoms of body pain aches and weakness suggesting that she suffered from multiple sclerosis and a required either pain medicines are steroids. She also had been homeless for a long time and at this time was living in a motel with her . She was back in emergency room with complain of pain and right-sided weakness. She denied using drugs and stated that she was not suffering from cold or flu or UTI type of symptoms. Review of Systems Review of Systems: No recent cold or flu-like symptom PMFSH Past Medical History Medical History Alcohol abuse Asthma section wound complication Cocaine abuse Diabetes Fall GERD (gastroesophageal reflux disease) History of seizure Hypertension MDD (major depressive disorder), recurrent episode, severe Multiple sclerosis Multiple sclerosis Multiple sclerosis exacerbation Personality disorder in adult Post traumatic stress disorder (PTSD) Surgical History Surgical History History of left ankle joint replacement History of thoracic surgery Social History Social History Household Members: Spouse Housing: Other Housing Other:: Living in hotel Do you presently have visiting nurse or other home services: No Alcohol intake: never Patient Tobacco Use Status: Never used Tobacco Tobacco use type: Cigarette Cigarette Packs Per Day: 0.5 Cigarettes Per Day: 5 Years Smoked: 26 e-Cigarette/Vaping Use: Never Used Second Hand Smoke Exposure: Yes ( also a smoker) Substance Use Type: Former Substance User Advance Directives: Yes Advance Directives on File: Yes Advance Directives Date on File: 08/25/20 service: No Sexual orientation: Did not discuss Meds Allergies Allergy/AdvReac Type Severity Reaction Status Date / Time Iodinated Contrast Media Allergy Severe ANAPHYLAXIS Verified 09/14/21 07:09 [CONTRAST, IV] ibuprofen [From Motrin] Allergy Intermediate SWELLING Verified 09/14/21 07:09 morphine [MORPHINE] Allergy Intermediate RASH Verified 09/14/21 07:09 acetaminophen [From TYLENOL] Allergy Mild HIVES Verified 09/14/21 07:09 bee pollen [Bee Stings] Allergy Mild UNKNOWN Verified 09/14/21 07:09 coconut Allergy Mild HIVES/SWELL Verified 09/14/21 07:09 ING latex [Latex] Allergy Mild HIVES Verified 09/14/21 07:09 NSAIDS (Non-Steroidal Allergy Mild HIVES Verified 09/14/21 07:09 Anti-Inflamma [NSAIDS (NON-STEROIDAL ANTI-INFLAMMA] aspirin [ASA] Allergy Unknown HIVES Verified 09/14/21 07:09 tramadol [TRAMADOL] Allergy Unknown UNKNOWN Verified 09/14/21 07:09 turkey Allergy Unknown UNKNOWN Verified 09/14/21 07:09 lidocaine Allergy Rash Verified 09/14/21 07:09 Peppers, Green Allergy Shortness Verified 09/14/21 07:09 of Breath Peppers, Jalapeno Allergy Shortness Verified 09/14/21 07:09 of Breath Peppers, Red Allergy Shortness Verified 09/14/21 07:09 of Breath Peppers, Yellow Allergy Shortness Verified 09/14/21 07:09 of Breath From Vicodin Allergy Mild RASH Uncoded 06/13/21 20:16 Home Medications Medication Instructions Recorded Confirmed Last Taken Type albuterol sulfate 90 mcg/actuation 2 puff inhalation Q6H PRN 02/10/22 04/05/22 03/23/22 History aerosol inhaler (Ventolin HFA) Shortness Of Breath loratadine 10 mg tablet 1 tab PO DAILY 03/24/22 04/05/22 03/23/22 History quetiapine 300 mg tablet 1 tab PO BEDTIME 03/24/22 04/05/22 03/23/22 History trazodone 100 mg tablet 1 tab PO BEDTIME 03/24/22 04/05/22 03/23/22 History Physical Exam Vital Signs: Vital Signs: Last Vital Signs Temp 98.6 F 04/20/22 14:28 Pulse 100 04/20/22 14:28 Resp 18 04/20/22 14:28 BP 146/107 H 04/20/22 14:28 Pulse Ox 97 04/20/22 14:28 O2 Del Method 04/20/22 14:28 BMI result Body Mass Index 36.3 Neuro: Other: He is alert and awake with normal spontaneity of speech fluency comprehension and affect. She remembered me despite the fact that we have not seen each other for many years. Face was symmetrical. Visual hodges are full. She was not moving her right side as well as left. Deep tendon reflexes were trace to absent with flexor plantars. There was no neglect Results Labs Labs: Her noncontrast head CT was suggestive more of central atrophy and some cortical atrophy with hypodense signal abnormalities of mild nature. Assessment and Plan (1) Multiple sclerosis: Status: Chronic Possible chronic multiple sclerosis and chronic cocaine abuse. With cocaine on board, it was difficult to confirm or deny an acute demyelinating episode. I had a naveed discussion with her stating that she should stop using drugs. I recommend conservative management and ruling out simple infections. A noncontrast MRI of brain can help to differentiate. Mainstay of management should be staying away from cocaine. Procedures Date of Service Date of Service: 04/20/22
--- NOTE | 2022-04-20 16:49 | MHC.CM.ED ---
Pt requested to meet with social services technician . Explained that I was a CM and met with her the last time she was here for a week awaiting STR. Upon last admission, pt left and went to aunts, stating there wasn't a facility that was accepting her and that she could stay with her aunt. Pt is teary, stating that she has no where to go and cannot return to the [facility] in [place] because she called the ambulance too much. Upon further questioning, pt states [employer] told her yesterday that she cannot return to the [facility]. Pt wants to be transferred to [facility] for treatment and MRI for her MS. Pt does not know her doctors name. Explained that pt cannot be transferred to another hospital with an accepting doctor. Explained that pt needs to have PCP and follow up care for her MS and chronic pain. Pt then told CM that she would kill herself if we sent her out. Wants to speak with [facility]. Pt then tells CM that she is clean and sober; pt had positive drug screen on 04/18 for cocaine and amphetamines. Pt wants MRI, but needs to be sedated per her for the procedure. Dr. Grace aware of above conversation and spoke with Dr. Garcia regarding ? need for MRI with anesthesia. MRI is not recommended for this patient at this time and per Dr. Garcia, can be done on an outpatient basis. This conversation was relayed to me by Dr. Grace. Dr. Grace will consult [facility]. Pt made aware of this by CM. Pt is relieved and asked if she would be transferred into the Behavioral Pod. Awaiting labs. Pt will be followed by [facility]. CM will follow if needed.
[2022-04-20 17:40] LABS: COVID-19 Test Negative (Negative); IDNOW Serial# 16C4AD1C
[2022-04-20 17:45] LABS: Alanine Aminotransferase 9 U/L (0-31); Albumin Level 3.9 g/dL (3.5-5.0); Alkaline Phosphatase 64 U/L (39-117); Anion Gap 15 (12-20); Aspartate Amino Transferase 13 U/L (5-31); Bilirubin Direct < 0.2 mg/dL (0.0-0.5); Bilirubin Total 0.3 mg/dL (0.0-1.0); Blood Urea Nitrogen 9 mg/dL (9-16); Calcium 8.8 mg/dL (8.4-10.2); Carbon Dioxide 20 mmol/L (22-29); Chloride 109 mmol/L (96-108); Creatinine Clr Calc Pharmacy 120.6; Estimated Glomerular Filt Rate > 60; Glucose Random 133 mg/dL (60-115); Potassium 4.2 mmol/L (3.3-5.1); Sodium 140 mmol/L (135-145); Total Protein 6.9 g/dL (6.5-8.0)
[2022-04-21 00:08] VITALS: BP 132/94; PULSE 90; RESP 18; TEMP 36.7; O2SAT 97
--- NOTE | 2022-04-21 00:47 | PC.NURSE ---
Patient alert and oriented x 3. Patient refusing lab draws, did allow one person to draw but blood hemolized. Patient refused MRI. Patient has been eating and drinking all day. Patient does not want to get discharged. Patient changed over to SI/psych clothing, security placed valuables in Pod. Patient requesting night medications. Will continue with plan of care.
[2022-04-21 01:44] LABS: Eosinophils Absolute Auto 0.1 X10*3/uL (0.0-0.4); Eosinophils Percent Auto 0.7 % (0-4); Hematocrit 33.2 % (37.0-47.0); Hemoglobin 10.2 g/dl (12.0-16.0); Mean Corpuscular HGB Conc 30.7 g/dl (31.0-35.0); PLT ABN DIST 1; PLT CLUMP 1; Red Cell Distribution Width 20.1 % (11.0-16.0); SCAN SMEAR FLAG 1
[2022-04-21 01:46] LABS: Basophils Percent Auto 0.3 % (0-2); Imm Gran Pct Auto 1.4 % (0.0-0.4); Lymphocytes Absolute Auto 2.3 X10*3/uL (1.2-4.9); Lymphocytes Percent Auto 33.1 % (20-40); Mean Corpuscular Hemoglobin 24.9 pg (27.0-33.0); Mean Corpuscular Volume 81.2 fL (80.0-98.0); Monocytes Absolute Auto 0.5 X10*3/uL (0.1-1.2); Monocytes Percent Auto 7.5 % (2-11); NRBC Pct Auto 0.4 /100WBC (0.0-0.2); Red Blood Count 4.09 X10*6/uL (4.20-5.50)
[2022-04-21 01:49] LABS: MANUAL DIFF FLAG NO
[2022-04-21 02:06] LABS: Troponin-I High Sensitivity < 3.5 ng/L (<3.5-17.0)
[2022-04-21 02:18] LABS: Platelet Count 176 X10*3/uL (160-400)
[2022-04-21] MEDS: Gabapentin 300 MG CAPSULE PO ×2 (02:57→09:19)
[2022-04-21] MEDS: Divalproex Sodium 500 MG TABLET.DR PO ×2 (02:57→09:19)
[2022-04-21] MEDS: traZODone HCL 100 MG TABLET PO (02:57)
[2022-04-21] MEDS: QUEtiapine Fumarate 300 MG TABLET PO (02:57)
[2022-04-21 04:48] VITALS: RESP 16
--- NOTE | 2022-04-21 05:36 | PC.NURSE ---
Smart sheet has been completed
[2022-04-21 09:18] VITALS: BP 123/80; PULSE 86; RESP 18; O2SAT 98
[2022-04-21] MEDS: amLODIPine Besylate 5 MG TABLET PO (09:19)
[2022-04-21] MEDS: Loratadine 10 MG TABLET PO (09:19)
--- NOTE | 2022-04-21 09:49 | PC.NURSE ---
Pt provided with DC teachings and prescriptions. Pt verbalized understanding. Pt wheel'd out to Entrance awaiting ride.
--- NOTE | 2022-04-21 09:51 | MHC.CARE ---
CARE Team met with Pt who denied current SI/HI/AH/VH. Pt reported she wanted help getting to the [facility] in [place] for housing. Pt requested a week worth of his prescription medication as she does have them currently with her. CARE Team provided Pt with information regarding [facility] mental health providers. Pt was provided community health link crisis information if needed. Case discussed with CAROL Vincent
== END 2022-04-21 09:50 | disposition home or self-care (01) ==
PROVIDERS: Emergency Provider Emergency Medicine
DX: G89.29 Other chronic pain (principal); F41.9 Anxiety disorder, unspecified; Z76.5 Malingerer [conscious simulation]; R45.851 Suicidal ideations; Z20.822 Contact with and (suspected) exposure to COVID-19; I10 Essential (primary) hypertension; E11.9 Type 2 diabetes mellitus without complications; G35 Multiple sclerosis; F17.210 Nicotine dependence, cigarettes, uncomplicated; F14.10 Cocaine abuse, uncomplicated; F10.10 Alcohol abuse, uncomplicated; Z79.899 Other long term (current) drug therapy
CPT/HCPCS: 36415; 70450; 80048; 80076; 84484; 85025; 87635; 93005; 99284

== ENCOUNTER 2022-06-22 15:38 | Emergency (ER) | payer OTHER, SELFPAY ==
--- NOTE | ~2022-06-22 | XR_ITS ---
EXAMINATION: XR CHEST CLINICAL INFORMATION: Cough COMPARISON: 04/18/2022 TECHNIQUE: Frontal view of the chest was obtained. FINDINGS: No significant abnormality is noted involving the heart, lungs, mediastinum, bony thorax or soft tissues. If a left pleural effusion had been present previously, as questioned, this has resolved. XR/XR chest 1V IMPRESSION: Unremarkable examination. No acute intrathoracic disease.
[2022-06-22 15:47] VITALS: BP 138/78; PULSE 103; RESP 20; TEMP 37.2; O2SAT 96; BMI 37.2
== END 2022-06-22 22:58 | disposition left against medical advice (07) ==
PROVIDERS: Emergency Provider Emergency Medicine
DX: R06.02 Shortness of breath (principal); R05.9 Cough, unspecified; R26.81 Unsteadiness on feet
CPT/HCPCS: 71045; 99281; 99283

== ENCOUNTER 2022-06-23 00:47 | Emergency (ER) | payer OTHER, SELFPAY ==
--- NOTE | ~2022-06-23 | XR_ITS ---
EXAMINATION: XR CHEST CLINICAL INFORMATION: Cough COMPARISON: 06/22/2022 TECHNIQUE: Frontal view of the chest was obtained. FINDINGS: Cardiac leads overlie the chest. The lungs are well expanded. There is no focal consolidation, edema, or effusion. No pneumothorax. The cardiomediastinal silhouette is within normal limits. No acute osseous abnormality. XR/XR chest 1V IMPRESSION: Clear lungs.
--- NOTE | 2022-06-23 01:08 | ED_ITS ---
HPI - Psych General Chief Complaint: Psychiatric Symptoms Stated Complaint: SI Time Seen by Provider: 06/23/22 00:58 Source: patient and EMS Mode of arrival: EMS Limitations: other (cocaine/alcohol intoxication) History of Present Illness HPI Narrative: 47 year old female with a PMHx of PTSD, depression, hx polysubstance abuse now, personality disorder, MS wheelchair bound who is presenting to the ED for evaluation of a of SI X1 day . The patient tells me that she was seen for an MS foot today in which the home she got home she ?just wanted to end it all ?. She tells me that she used a large amount of cocaine and drank alcohol today, approximately 2 bottles. She has no plan to kill herself at this time, denies HI. She tells me that she has been having auditory hallucinations, hearing voices that are telling her to end it . She also tells me that she was at [facility] days ago and was told that she has COVID-19. She reports having a persistent dry cough. She denies any other medical complaints at this time including shortness of breath, chest pain, fevers, chills, headaches, dizziness, or changes in vision. Related Data Home Medications Medication Instructions Recorded Confirmed albuterol sulfate 90 mcg/actuation 2 puff inhalation Q6H PRN 02/10/22 04/21/22 aerosol inhaler (Ventolin HFA) Shortness Of Breath loratadine 10 mg tablet 1 tab PO DAILY 03/24/22 04/21/22 quetiapine 300 mg tablet 1 tab PO BEDTIME 03/24/22 04/21/22 trazodone 100 mg tablet 1 tab PO BEDTIME 03/24/22 04/21/22 gabapentin 300 mg capsule 1 cap PO TID 04/21/22 04/21/22 Previous Rx's Medication Instructions Recorded amlodipine 5 mg tablet 5 mg PO DAILY 30 days #30 tabs 09/07/21 divalproex 500 mg tablet,delayed 500 mg PO BID 30 days #60 tabs 09/07/21 release divalproex 500 mg tablet,delayed 500 mg PO BID #20 tabs 04/21/22 release (Depakote) quetiapine 300 mg tablet (Seroquel) 300 mg PO BEDTIME #10 tabs 04/21/22 trazodone 100 mg tablet 100 mg PO BEDTIME #10 tabs 04/21/22 Allergies Allergy/AdvReac Type Severity Reaction Status Date / Time Iodinated Contrast Media Allergy Severe ANAPHYLAXIS Verified 09/14/21 07:09 [CONTRAST, IV] ibuprofen [From Motrin] Allergy Intermediate SWELLING Verified 09/14/21 07:09 morphine [MORPHINE] Allergy Intermediate RASH Verified 09/14/21 07:09 acetaminophen [From TYLENOL] Allergy Mild HIVES Verified 09/14/21 07:09 bee pollen [Bee Stings] Allergy Mild UNKNOWN Verified 09/14/21 07:09 coconut Allergy Mild HIVES/SWELL Verified 09/14/21 07:09 ING latex [Latex] Allergy Mild HIVES Verified 09/14/21 07:09 NSAIDS (Non-Steroidal Allergy Mild HIVES Verified 09/14/21 07:09 Anti-Inflamma [NSAIDS (NON-STEROIDAL ANTI-INFLAMMA] aspirin [ASA] Allergy Unknown HIVES Verified 09/14/21 07:09 tramadol [TRAMADOL] Allergy Unknown UNKNOWN Verified 09/14/21 07:09 turkey Allergy Unknown UNKNOWN Verified 09/14/21 07:09 lidocaine Allergy Rash Verified 09/14/21 07:09 Peppers, Green Allergy Shortness Verified 09/14/21 07:09 of Breath Peppers, Jalapeno Allergy Shortness Verified 09/14/21 07:09 of Breath Peppers, Red Allergy Shortness Verified 09/14/21 07:09 of Breath Peppers, Yellow Allergy Shortness Verified 09/14/21 07:09 of Breath From Vicodin Allergy Mild RASH Uncoded 06/13/21 20:16 Review of Systems Review of Systems: Constitutional : No Weight loss, No Fever, No Chills, No Fatigue, No Malaise ENT/Mouth : No sore throat, No Rhinorrhea Eyes: No Eye Pain, No Swelling, No Redness Cardiovascular : No Chest Pain, No SOB, No Dyspnea on Exertion, No Orthopnea, No Edema, No Palpitations Respiratory : No Cough, No Sputum, No Wheezing Gastrointestinal : No Nausea, No Vomiting, No Diarrhea, No Constipation, No abdominal Pain, No Hematochezia, No Melena Genitourinary : No Dysuria, No Urinary Frequency, No Hematuria, Musculoskeletal : No joint pain, No Myalgias, No Joint Swelling Skin : No Skin Lesions, No rash Neuro : No Weakness, No Numbness, No Dizziness, No Headache Psych : No Anxiety/Panic, + Depression + SI + auditory hallucinations, No HI All other systems reviewed and are negative Yes all other systems are reviewed and are negative [facility] Past Medical History Attestation statement: The following information was validated with the patient. Source: old records reviewed and nursing notes reviewed Medical History Alcohol abuse Asthma section wound complication Cocaine abuse Diabetes Fall GERD (gastroesophageal reflux disease) History of seizure Hypertension MDD (major depressive disorder), recurrent episode, severe Multiple sclerosis Multiple sclerosis Multiple sclerosis exacerbation Personality disorder in adult Post traumatic stress disorder (PTSD) Surgical History History of left ankle joint replacement History of thoracic surgery Social History Social History Household Members: Spouse Housing: Other Housing Other:: Living in hotel Do you presently have visiting nurse or other home services: No Alcohol intake: never Patient Tobacco Use Status: Never used Tobacco Tobacco use type: Cigarette Cigarette Packs Per Day: 0.5 Cigarettes Per Day: 5 Years Smoked: 26 e-Cigarette/Vaping Use: Never Used Second Hand Smoke Exposure: Yes ( also a smoker) Substance Use Type: Former Substance User Advance Directives Date on File: 08/25/20 service: No Sexual orientation: Did not discuss Physical Exam Vital Signs: Vital Signs: Last Vital Signs Temp 98.1 F 06/23/22 01:44 Pulse 96 06/23/22 01:44 Resp 24 H 06/23/22 01:44 BP 173/122 H 06/23/22 01:44 O2 Del Method 06/23/22 01:44 BMI result Body Mass Index 41.8 Patient is noted to have an elevated blood pressure however not having headache, vision changes, dizziness. Likely secondary to cocaine, alcohol and patient continues sleep coughing, I do not suspect that this is an accurate reading, will obtain a new 1 when patient settles down. Appearance: Alert.? Oriented X3.?Appears intoxicated. No acute distress.? Head: Normocephalic, atraumatic, no step-offs or deformities Eyes: Pupils equal, round and reactive to light.? Neck: Normal inspection.? Neck supple.? CVS: Normal heart rate and rhythm.? Pulses normal.? Respiratory: No respiratory distress.? Breath sounds normal.? Abdomen: Soft and nontender.? Skin: Skin warm and dry.? Normal skin color.? Normal skin turgor.? Extremities: No lower extremity edema.? No calf ttp. 5/5 strength to bilateral upper and lower extremities Back: No midline tenderness, no C-spine tenderness, full range of motion, no CVA tenderness bilaterally Neuro: Oriented X 3.? No motor deficit.? No sensory deficit. CN 2-12 intact Psych: Expresses SI, no plan. Speech is normal. Does not appear to be responding to external stimuli. Course Reevaluation(s) Reevaluation #1: CBC within normal limits. Chemistry with no acute findings. Patient is noted to be COVID a positive, chest x-ray pending at this time. Patient hemodynamically stable. Patient is noted to have an elevated blood pressure likely secondary to her continuously coughing and cocaine and alcohol, blood pressure will be rechecked by nursing. Sign out to Dr. Roman pending medical clearance and N evaluation. At this time patient will be placed in physician observation to allow more time for re- evaluation, and evaluation by the behavioral health team. At time observation was started patient common cooperative no acute distress. Time: 02:02 MDM - Psych MDM Narrative Medical decision making narrative: 1:00 AM 47 y/o F presenting for evaluation of suicidal ideations & substance abuse. +cocaine and ETOH use today. PE benign. Elevated blood pressure noted as well as tachycardia and tachypnea, likely secondary to agitation, alcohol, cocaine and patient continuously coughing. A repeat blood pressure will be obtained. Cough likely secondary to COVID-19. Unlikely pneumonia, PE, no chest pain, unlikely ACS. Patient is intoxicated and under the influence of drugs likely contributing to her were presentation. Plan to obtain basic labs, medical clearance, obtain psych evaluation. Medical Records Attestation: I reviewed the patient's medical records. Lab Data Attestation: I reviewed the patient's lab results. Result diagrams: 06/23/22 01:28 06/23/22 01:28 Labs: Lab Results 06/23/22 06/23/22 Range/Units 01:19 01:28 WBC 5.4 (4.8-10.8) X10*3/uL RBC 4.98 D (4.20-5.50) X10*6/uL Hgb 13.0 D (12.0-16.0) g/dl Hct 40.4 D (37.0-47.0) % MCV 81.1 (80.0-98.0) fL MCH 26.1 L (27.0-33.0) pg MCHC 32.2 (31.0-35.0) g/dl RDW 19.0 H (11.0-16.0) % Plt Count 232 D (160-400) X10*3/uL MPV 11.3 (9.4-12.3) fL Immature Gran % (Auto) 0.2 (0.0-0.4) % Neut % (Auto) 73.4 H (45-73) % Lymph % (Auto) 18.5 L (20-40) % [place] % (Auto) 7.2 (2-11) % Eos % (Auto) 0.0 (0-4) % Baso % (Auto) 0.7 (0-2) % Lymph # (Auto) 1.0 L (1.2-4.9) X10*3/uL [place] # (Auto) 0.4 (0.1-1.2) X10*3/uL Eos # (Auto) 0.0 (0.0-0.4) X10*3/uL Baso # (Auto) 0.0 (0.0-0.2) X10*3/uL Abs Immat Gran (auto) 0.01 (0.00-0.03) X10*3/uL Absolute Neuts (auto) 4.0 (2.0-8.3) x10*3/uL Absolute Nucleated RBC 0.000 (0.0-0.012) X10*3/uL Nucleated RBC % (auto) 0.0 (0.0-0.2) /100WBC COVID-19 (BRENDA) Positive A (Negative) COVID-19 Clin Com See Note Critical Care Time Critical Care Time Critical Care Time: No Discharge Plan Discharge Clinical Impression: COVID-19, Suicidal ideation, Cocaine abuse, Alcohol intoxication Patient Disposition: Still a Patient Prescriptions: No Action amlodipine 5 mg Tablet 5 mg PO DAILY 30 Days Qty: 30 0RF Protocol: Hold for SBP< HOLD for SBP < : 90 divalproex 500 mg Tablet,Delayed Release (Dr/Ec) 500 mg PO BID 30 Days Qty: 60 0RF albuterol sulfate [Ventolin HFA] 90 mcg/actuation HFA aerosol inhaler 2 puff inhalation Q6H PRN (Reason: Shortness Of Breath) quetiapine 300 mg tablet 1 tab PO BEDTIME trazodone 100 mg tablet 1 tab PO BEDTIME loratadine 10 mg tablet 1 tab PO DAILY gabapentin 300 mg capsule 1 cap PO TID divalproex [Depakote] 500 mg tablet,delayed release (DR/EC) 500 mg PO BID Qty: 20 0RF trazodone 100 mg tablet 100 mg PO BEDTIME Qty: 10 0RF quetiapine [Seroquel] 300 mg tablet 300 mg PO BEDTIME Qty: 10 0RF
[2022-06-23 01:33] LABS: MANUAL DIFF FLAG NO
[2022-06-23 01:35] LABS: Basophils Percent Auto 0.7 % (0-2); Hematocrit 40.4 % (37.0-47.0); Imm Gran Abs Auto 0.01 X10*3/uL (0.00-0.03); Imm Gran Pct Auto 0.2 % (0.0-0.4); Lymphocytes Percent Auto 18.5 % (20-40); Mean Corpuscular HGB Conc 32.2 g/dl (31.0-35.0); Mean Corpuscular Hemoglobin 26.1 pg (27.0-33.0); Mean Corpuscular Volume 81.1 fL (80.0-98.0); Mean Platelet Volume 11.3 fL (9.4-12.3); Monocytes Absolute Auto 0.4 X10*3/uL (0.1-1.2); Monocytes Percent Auto 7.2 % (2-11); Neutrophils Percent Auto 73.4 % (45-73); Platelet Count 232 X10*3/uL (160-400); Red Blood Count 4.98 X10*6/uL (4.20-5.50); White Blood Count 5.4 X10*3/uL (4.8-10.8)
[2022-06-23 01:44] VITALS: BP 173/122; PULSE 96; RESP 24; TEMP 36.7; BMI 41.8
[2022-06-23 01:45] LABS: COVID-19 Test Positive (Negative)
[2022-06-23 02:02] LABS: Alanine Aminotransferase 17 U/L (0-31); Albumin Level 4.7 g/dL (3.5-5.0); Alkaline Phosphatase 74 U/L (39-117); Anion Gap 17 (12-20); Aspartate Amino Transferase 14 U/L (5-31); Bilirubin Total < 0.2 mg/dL (0.0-1.0); Blood Urea Nitrogen 9 mg/dL (9-16); Calcium 9.8 mg/dL (8.4-10.2); Carbon Dioxide 19 mmol/L (22-29); Chloride 107 mmol/L (96-108); Creatinine Clr Calc Pharmacy 135.2; Estimated Glomerular Filt Rate > 60; Ethanol < 10 mg/dL; Glucose Random 103 mg/dL (60-115); Magnesium 1.9 mg/dL (1.6-2.6); Potassium 3.3 mmol/L (3.3-5.1); Sodium 140 mmol/L (135-145); Total Protein 8.1 g/dL (6.5-8.0)
[2022-06-23 02:15] LABS: Acetaminophen LAB < 1 mcg/mL (<30); Salicylate < 5.0 mg/dL (15-30)
[2022-06-23 02:55] VITALS: BP 171/104; PULSE 84; RESP 18
--- NOTE | 2022-06-23 04:55 | PC.NURSE ---
Per MD Valeria, do not do EKG
[2022-06-23 05:18] VITALS: BP 188/117; PULSE 89; RESP 20; O2SAT 96
[2022-06-23] MEDS: amLODIPine Besylate 10 MG TABLET PO (05:19)
[2022-06-23 05:46] VITALS: BP 189/116; PULSE 81; RESP 20
--- NOTE | 2022-06-23 07:14 | PC.NURSE ---
smartshit done to n pt is currenly asleep, respirations even and unlabored
--- NOTE | 2022-06-23 07:19 | MHC.CARE ---
Smart sheet submitted
[2022-06-23] MEDS: Benzonatate 100 MG CAPSULE PO (08:48)
[2022-06-23 08:50] VITALS: BP 179/104; PULSE 90; RESP 20; O2SAT 95
--- NOTE | 2022-06-23 09:33 | PC.NURSE ---
waiting for pharmacy to verify pt meds on mar
--- NOTE | 2022-06-23 11:44 | PHA.MEDREC ---
Pharmacy Consult ? Medication Reconciliation Pharmacy has reviewed the medication reconciliation done by Nancy
--- NOTE | 2022-06-23 11:55 | PC.NURSE ---
pt cleared by care team, plan to d/c home
[2022-06-23 12:34] VITALS: BP 163/115; PULSE 94; RESP 20
[2022-06-23] MEDS: hydrOXYzine HCL 50 MG TABLET PO (12:37)
[2022-06-23] MEDS: Loratadine 10 MG TABLET PO (12:38)
[2022-06-23] MEDS: Baclofen 10 MG TABLET PO (12:38)
[2022-06-23] MEDS: Divalproex Sodium 500 MG TABLET.DR PO (12:38)
[2022-06-23] MEDS: Omeprazole 40 MG CAPSULE.DR PO (12:38)
== END 2022-06-23 14:27 | disposition home or self-care (01) ==
PROVIDERS: Physician Assistant; Emergency Provider Internal Medicine
DX: F33.1 Major depressive disorder, recurrent, moderate (principal); R45.851 Suicidal ideations; U07.1 COVID-19; F14.19 Cocaine abuse with unspecified cocaine-induced disorder; F10.129 Alcohol abuse with intoxication, unspecified; Y90.8 Blood alcohol level of 240 mg/100 ml or more; R00.0 Tachycardia, unspecified; Z79.899 Other long term (current) drug therapy
CPT/HCPCS: 71045; 80053; 80143; 80179; 82077; 83735; 85025; 87635; 99284; 99285

== ENCOUNTER 2022-07-12 11:03 | Emergency (ER) | payer OTHER, SELFPAY ==
[2022-07-12 11:07] VITALS: BP 138/86; PULSE 95; O2SAT 97
[2022-07-12 11:45] VITALS: BP 163/103; PULSE 93; RESP 18; TEMP 36; O2SAT 90; BMI 52.4
[2022-07-12 20:41] VITALS: BP 181/100; PULSE 88
--- NOTE | 2022-07-12 21:39 | ED_ITS ---
HPI - General Adult General Chief complaint: General Medical Stated complaint: MS Flare up,Rt side numbness Time Seen by Provider: 07/12/22 11:32 History of Present Illness HPI narrative: Patient's history of cocaine alcohol use, PTSD, history of CVA with right-sided residual weakness questionable history of multiple sclerosis not on any medication hypertension, KRISTY frequent hospitalization for questionable multiple sclerosis flare up patient refusing MRI last admission to our hospital was 03/30 just admitted at [facility] on 06/23 for depression/si transferred from here discharge 4 days ago now complaining of blurred vision started today says that is flare-up of the multiple sclerosis. Also states that she already started on cepaxone but has not picked up the medicine from pharmacy patient's history is not reliable Related Data Home Medications Medication Instructions Recorded Confirmed albuterol sulfate 90 mcg/actuation 2 puff inhalation Q6H PRN 02/10/22 06/23/22 aerosol inhaler (Ventolin HFA) Shortness Of Breath loratadine 10 mg tablet 1 tab PO DAILY 03/24/22 06/23/22 baclofen 10 mg tablet 10 mg PO BID 06/23/22 06/23/22 gabapentin 800 mg tablet 1 tab PO TID neuropathy 06/23/22 06/23/22 hydroxyzine HCl 50 mg tablet 50 mg PO TID 06/23/22 06/23/22 omeprazole 40 mg capsule,delayed 40 mg PO DAILY 06/23/22 06/23/22 release prazosin 2 mg capsule 2 mg PO BEDTIME 06/23/22 06/23/22 quetiapine 400 mg tablet 1 tab PO BEDTIME depressive 06/23/22 06/23/22 disorder quetiapine 50 mg tablet 50 mg PO BID PRN Mood 06/23/22 06/23/22 risperidone 1 mg tablet 1 mg 06/23/22 trazodone 100 mg tablet 150 mg PO BEDTIME PRN Sleep 06/23/22 06/23/22 Previous Rx's Medication Instructions Recorded amlodipine 5 mg tablet 5 mg PO DAILY 30 days #30 tabs 09/07/21 divalproex 500 mg tablet,delayed 500 mg PO BID 30 days #60 tabs 09/07/21 release benzonatate 100 mg capsule 100 mg PO TID PRN cough #14 caps 06/23/22 Allergies Allergy/AdvReac Type Severity Reaction Status Date / Time Iodinated Contrast Media Allergy Severe ANAPHYLAXIS Verified 09/14/21 07:09 [CONTRAST, IV] ibuprofen [From Motrin] Allergy Intermediate SWELLING Verified 09/14/21 07:09 morphine [MORPHINE] Allergy Intermediate RASH Verified 09/14/21 07:09 acetaminophen [From TYLENOL] Allergy Mild HIVES Verified 09/14/21 07:09 bee pollen [Bee Stings] Allergy Mild UNKNOWN Verified 09/14/21 07:09 coconut Allergy Mild HIVES/SWELL Verified 09/14/21 07:09 ING latex [Latex] Allergy Mild HIVES Verified 09/14/21 07:09 NSAIDS (Non-Steroidal Allergy Mild HIVES Verified 09/14/21 07:09 Anti-Inflamma [NSAIDS (NON-STEROIDAL ANTI-INFLAMMA] aspirin [ASA] Allergy Unknown HIVES Verified 09/14/21 07:09 tramadol [TRAMADOL] Allergy Unknown UNKNOWN Verified 09/14/21 07:09 turkey Allergy Unknown UNKNOWN Verified 09/14/21 07:09 lidocaine Allergy Rash Verified 09/14/21 07:09 Peppers, Green Allergy Shortness Verified 09/14/21 07:09 of Breath Peppers, Jalapeno Allergy Shortness Verified 09/14/21 07:09 of Breath Peppers, Red Allergy Shortness Verified 09/14/21 07:09 of Breath Peppers, Yellow Allergy Shortness Verified 09/14/21 07:09 of Breath From Vicodin Allergy Mild RASH Uncoded 06/13/21 20:16 Review of Systems Review of Systems: Yes all other systems are reviewed and are negative PMFSH Past Medical History Medical History Alcohol abuse Asthma section wound complication Cocaine abuse Diabetes Fall GERD (gastroesophageal reflux disease) History of seizure Hypertension MDD (major depressive disorder), recurrent episode, severe Multiple sclerosis Multiple sclerosis Multiple sclerosis exacerbation Personality disorder in adult Post traumatic stress disorder (PTSD) Surgical History History of left ankle joint replacement History of thoracic surgery Social History Social History Household Members: Spouse Housing: Other Housing Other:: Living in hotel Do you presently have visiting nurse or other home services: No Alcohol intake: current Alcohol intake frequency: does not drink Patient Tobacco Use Status: Current everyday Tobacco user Tobacco use type: Cigarette Cigarette Packs Per Day: 0.5 Cigarettes Per Day: 5 Years Smoked: 26 e-Cigarette/Vaping Use: Never Used Second Hand Smoke Exposure: Yes ( also a smoker) Substance Use Type: Crack/Cocaine Advance Directives: Yes Advance Directives on File: Yes Advance Directives Date on File: 08/25/20 service: No Sexual orientation: Did not discuss Physical Exam ED Vital Signs: Vital Signs - 24 hr 07/12/22 11:45 07/12/22 20:41 07/12/22 21:40 Temperature 96.8 F 97.7 F Pulse Rate 93 88 102 H Respiratory Rate 18 16 Blood Pressure 163/103 H 181/100 H 167/91 H Pulse Oximetry 90 L 99 Oxygen Delivery Method Room Air BMI result Body Mass Index 52.4 Appearance: Alert. Oriented X3. No acute distress. Eyes: PERRLA, No Nystagmus claims blurred vision from right eye monocular eomi ENT: Pharynx normal. Oral Mucosa moist Neck: Normal inspection. Neck supple. CVS: Normal heart rate and rhythm. Pulses normal. Respiratory: No respiratory distress. Equal air entry bilateral, no wheezing/rales/rhonchi Abdomen: Soft and nontender. Bowel sounds are present, no mass palpable, no CVA tenderness Skin: Skin warm and dry. Normal skin color. Normal skin turgor. Extremities: No lower extremity edema. No calf tenderness Neuro: Oriented X 3. ficit.No cerebellar signs , cranial nerves II-XII intact residual right-sided weakness Medical Decision Making [facility] Narrative Medical decision making narrative: Patient with multiple hospitalization with no follow-up for MS on Copaxone states she has blurred vision but only from right eye advised to continue Suboxone to [facility] tomorrow will discharge patient home Discharge Plan Discharge Clinical Impression: Blurred vision Patient Disposition: Home, Self-Care Instructions: Blurred Vision (ED) Additional Instructions: Continue taking medication as prescribed Follow-up with your neurologist Prescriptions: No Action amlodipine 5 mg Tablet 5 mg PO DAILY 30 Days Qty: 30 0RF Protocol: Hold for SBP< HOLD for SBP < : 90 divalproex 500 mg Tablet,Delayed Release (Dr/Ec) 500 mg PO BID 30 Days Qty: 60 0RF albuterol sulfate [Ventolin HFA] 90 mcg/actuation HFA aerosol inhaler 2 puff inhalation Q6H PRN (Reason: Shortness Of Breath) loratadine 10 mg tablet 1 tab PO DAILY trazodone 100 mg tablet 150 mg PO BEDTIME PRN (Reason: Sleep) hydroxyzine HCl 50 mg Tablet 50 mg PO TID omeprazole 40 mg Capsule,Delayed Release(Dr/Ec) 40 mg PO DAILY baclofen 10 mg Tablet 10 mg PO BID risperidone 1 mg Tablet 1 mg prazosin 2 mg Capsule 2 mg PO BEDTIME quetiapine 50 mg Tablet 50 mg PO BID PRN (Reason: Mood) quetiapine 400 mg tablet 1 tab PO BEDTIME gabapentin 800 mg tablet 1 tab PO TID benzonatate 100 mg capsule 100 mg PO TID PRN (Reason: cough) Qty: 14 0RF
[2022-07-12 21:40] VITALS: BP 167/91; PULSE 102; RESP 16; TEMP 36.5; O2SAT 99
[2022-07-12] MEDS: oxyCODONE HCl Immed Release 5 MG TABLET 10 MG PO (22:23)
[2022-07-12] MEDS: predniSONE 20 MG TABLET 60 MG PO (22:23)
[2022-07-13 06:00] VITALS: RESP 16
== END 2022-07-13 07:29 | disposition home or self-care (01) ==
PROVIDERS: Emergency Provider Internal Medicine
DX: H53.8 Other visual disturbances (principal); F14.10 Cocaine abuse, uncomplicated; F17.210 Nicotine dependence, cigarettes, uncomplicated; Z79.899 Other long term (current) drug therapy; Z71.6 Tobacco abuse counseling
CPT/HCPCS: 99283; 99284

== ENCOUNTER 2024-02-20 15:45 | Emergency (ER) | payer OTHER, SELFPAY ==
[2024-02-20 16:52] VITALS: BP 138/85; PULSE 113; RESP 18; TEMP 36.5; O2SAT 97; BMI 43.7
--- NOTE | 2024-02-20 17:56 | ED_ITS ---
HPI - Neuro Symptoms/Deficit General Chief Complaint: Neuro Symptoms/Deficit Stated Complaint: MS fair? History of Present Illness HPI Narrative: * Left withtout completion of treatment by ED provider Related Data Home Medications ?Medication ?Instructions ?Recorded ?Confirmed albuterol sulfate 90 mcg/actuation 2 puff inhalation Q6H PRN 02/10/22 06/23/22 aerosol inhaler (Ventolin HFA) Shortness Of Breath loratadine 10 mg tablet 1 tab PO DAILY 03/24/22 06/23/22 baclofen 10 mg tablet 10 mg PO BID 06/23/22 06/23/22 gabapentin 800 mg tablet 1 tab PO TID neuropathy 06/23/22 06/23/22 hydroxyzine HCl 50 mg tablet 50 mg PO TID 06/23/22 06/23/22 omeprazole 40 mg capsule,delayed 40 mg PO DAILY 06/23/22 06/23/22 release prazosin 2 mg capsule 2 mg PO BEDTIME 06/23/22 06/23/22 quetiapine 400 mg tablet 1 tab PO BEDTIME depressive 06/23/22 06/23/22 disorder quetiapine 50 mg tablet 50 mg PO BID PRN Mood 06/23/22 06/23/22 risperidone 1 mg tablet 1 mg 06/23/22 trazodone 100 mg tablet 150 mg PO BEDTIME PRN Sleep 06/23/22 06/23/22 Previous Rx's ?Medication ?Instructions ?Recorded amlodipine 5 mg tablet 5 mg PO DAILY 30 days #30 tabs 09/07/21 divalproex 500 mg tablet,delayed 500 mg PO BID 30 days #60 tabs 09/07/21 release benzonatate 100 mg capsule 100 mg PO TID PRN cough #14 caps 06/23/22 Allergies Allergy/AdvReac Type Severity Reaction Status Date / Time Iodinated Contrast Media Allergy Severe ANAPHYLAXIS Verified 02/20/24 16:58 [CONTRAST, IV] ibuprofen [From Motrin] Allergy Intermediate SWELLING Verified 02/20/24 16:58 morphine [MORPHINE] Allergy Intermediate RASH Verified 02/20/24 16:58 acetaminophen [From TYLENOL] Allergy Mild HIVES Verified 02/20/24 16:58 bee pollen [Bee Stings] Allergy Mild UNKNOWN Verified 02/20/24 16:58 coconut Allergy Mild HIVES/SWELL Verified 02/20/24 16:58 ING latex [Latex] Allergy Mild HIVES Verified 02/20/24 16:58 NSAIDS (Non-Steroidal Allergy Mild HIVES Verified 02/20/24 16:58 Anti-Inflamma [NSAIDS (NON-STEROIDAL ANTI-INFLAMMA] aspirin [ASA] Allergy Unknown HIVES Verified 02/20/24 16:58 tramadol [TRAMADOL] Allergy Unknown UNKNOWN Verified 02/20/24 16:58 turkey Allergy Unknown UNKNOWN Verified 02/20/24 16:58 lidocaine Allergy Rash Verified 02/20/24 16:58 Peppers, Green Allergy Shortness Verified 02/20/24 16:58 of Breath Peppers, Jalapeno Allergy Shortness Verified 02/20/24 16:58 of Breath Peppers, Red Allergy Shortness Verified 02/20/24 16:58 of Breath Peppers, Yellow Allergy Shortness Verified 02/20/24 16:58 of Breath From Vicodin Allergy Mild RASH Uncoded 02/20/24 16:58 PMFSH Past Medical History Medical History Alcohol abuse Asthma section wound complication Cocaine abuse Diabetes Fall GERD (gastroesophageal reflux disease) History of seizure Hypertension MDD (major depressive disorder), recurrent episode, severe Multiple sclerosis Multiple sclerosis Multiple sclerosis exacerbation Personality disorder in adult Post traumatic stress disorder (PTSD) Surgical History History of left ankle joint replacement History of thoracic surgery Social History Social History Household Members: Spouse Housing: Other Housing Other:: Living in hotel Do you presently have visiting nurse or other home services: No Alcohol intake: current Alcohol intake frequency: does not drink Comment: Patient using wheelchair Patient Tobacco Use Status: Current everyday Tobacco user Tobacco use type: Cigarette Cigarette Packs Per Day: 0.5 Cigarettes Per Day: 5 Years Smoked: 26 e-Cigarette/Vaping Use: Never Used Second Hand Smoke Exposure: Yes ( also a smoker) Substance Use Type: Crack/Cocaine Advance Directives: Yes Advance Directives on File: Yes Advance Directives Date on File: 08/25/20 Do you have a plan to hurt others: No Plan service: No Sexual orientation: Did not discuss Physical Exam Vital Signs: Vital Signs: Last Vital Signs Temp 97.7 F 02/20/24 16:52 Pulse 113 H 02/20/24 16:52 Resp 18 02/20/24 16:52 BP 138/85 02/20/24 16:52 Pulse Ox 97 02/20/24 16:52 O2 Del Method Room Air 02/20/24 16:52 BMI result Body Mass Index 43.7 Course Course Course Narrative: MICHEAL; 48 year female presents to ED for fall and hitting head. Nephew called the ambulance. Patient states she fell because she felt she would another MS flare exacerbation. Patient states around earlier this earlier this morning she states right eye blurry vision and right-sided tingling which is her baseline for MS flare. Patient presently asymptomatic. Patient's baseline on wheelchair. NIH score is 0. no neruo defectis. no signs of obvious head trauma. Labs head CT scan cervical spine CT scan ordered. Patient may need MRI pharynx and was informed of this. Charge nurse informed of paient and states she will bring patient in the ED. Discharge Plan Discharge Clinical Impression: Fall Patient Disposition: Left W/O Completing Treatment Prescriptions: No Action amlodipine 5 mg Tablet 5 mg PO DAILY 30 Days Qty: 30 0RF Protocol: Hold for SBP< HOLD for SBP < : 90 divalproex 500 mg Tablet,Delayed Release (Dr/Ec) 500 mg PO BID 30 Days Qty: 60 0RF albuterol sulfate [Ventolin HFA] 90 mcg/actuation HFA aerosol inhaler 2 puff inhalation Q6H PRN (Reason: Shortness Of Breath) loratadine 10 mg tablet 1 tab PO DAILY trazodone 100 mg tablet 150 mg PO BEDTIME PRN (Reason: Sleep) hydroxyzine HCl 50 mg Tablet 50 mg PO TID omeprazole 40 mg Capsule,Delayed Release(Dr/Ec) 40 mg PO DAILY baclofen 10 mg Tablet 10 mg PO BID risperidone 1 mg Tablet 1 mg prazosin 2 mg Capsule 2 mg PO BEDTIME quetiapine 50 mg Tablet 50 mg PO BID PRN (Reason: Mood) quetiapine 400 mg tablet 1 tab PO BEDTIME gabapentin 800 mg tablet 1 tab PO TID benzonatate 100 mg capsule 100 mg PO TID PRN (Reason: cough) Qty: 14 0RF Discharge Date/Time: 02/20/24 21:29
--- NOTE | 2024-02-20 18:25 | MHC.EDTECH ---
Patient states she has MS, she does not want to have blood work at the moment. She states she wants to wait until she gets into a room and have a nurse do the blood work. Patient is waiting to see if she needs an IV as well so it can be all done at the same time. Patient states she is a hard find for veins and blood work. SG
--- NOTE | 2024-02-20 21:25 | PC.NURSE ---
Pt seen by security smoking unknown substance by security, left campus without notifying staff.
== END 2024-02-20 21:29 | disposition left against medical advice (07) ==
LOC: HO.ED 21:28
PROVIDERS: Emergency Provider Emergency Medicine
DX: H53.8 Other visual disturbances (principal); I05.0 Rheumatic mitral stenosis; R20.2 Paresthesia of skin; Z91.81 History of falling
CPT/HCPCS: 99281

== ENCOUNTER 2024-03-23 10:01 | Emergency (ER) | payer OTHER, SELFPAY ==
--- NOTE | ~2024-03-23 | CT_ITS ---
EXAMINATION: CT HEAD WITHOUT CONTRAST CLINICAL INFORMATION: Fall head strike COMPARISON: CT head from 04/20/2022 TECHNIQUE: Contiguous axial imaging was performed from the skull base to vertex without intravenous administration of contrast. This CT examination was performed using dose optimization techniques as appropriate, variously including the following: *Automated exposure control *Adjustment of mA and/or kV according to patient size (this includes techniques or standardized protocols for targeted exams where dose is matched to indication/reason for exam; i.e. extremities or head) *Use of iterative reconstruction technique DLP: 760.17 mGy-cm FINDINGS: There is no evidence of acute intracranial hemorrhage or territorial infarction. Mild cerebral atrophy. No abnormal mass effect or midline shift is seen. Carlton to white matter differentiation is well preserved. No extra-axial fluid collections are identified. The ventricles are normal in size. There is no abnormal attenuation within the brain parenchyma. The osseous structures and soft tissues are normal. The mastoid air cells and visualized portions of the paranasal sinuses are well aerated. CT/CT cervical spine wo IV con IMPRESSION: No acute intracranial pathology. EXAMINATION: Noncontrast CT scan of the cervical spine. INDICATION: Fall head strike COMPARISON: CT cervical spine from 04/05/2022 TECHNIQUE: Helical, multidetector axial images were obtained from the occiput to the upper thorax. Coronal and sagittal reformats of the cervical spine were provided for interpretation. DLP: 776.48 mGy-cm FINDINGS: No acute fractures or dislocations of the cervical spine are seen. Straightening the normal cervical curvature. Mild multilevel degenerative changes. Anatomic alignment and positioning of the vertebral bodies and posterior elements is noted. The atlantoaxial joint and craniovertebral articulations are normal without evidence of subluxation. There is no prevertebral soft tissue swelling. The thyroid gland and visualized portions of the lung apices and mediastinum are unremarkable. IMPRESSION: 1. No acute visible fracture or dislocation. 2. Straightening the normal cervical curvature. 3. Mild multilevel degenerative changes.
--- NOTE | ~2024-03-23 | XR_ITS ---
EXAMINATION: XR ANKLE, LEFT XR FOOT, LEFT CLINICAL INFORMATION: Pain COMPARISON: Tibia-fibula radiograph from 06/21/2021 TECHNIQUE: 2 views of the left foot 2 views the left ankle FINDINGS: Status post plate and screw fixation of the distal tibia and fibula, grossly intact. Osseous bridging distal tibiofibular syndesmosis. No acute visible fracture or dislocation. Stable arthritic changes of the ankle mortise. Multi joint arthritic changes. Joint spaces and alignment are otherwise maintained. Suspected chronic osteolysis of the fifth proximal phalangeal head. Joint space alignment otherwise maintained. Soft tissues are unremarkable. XR/XR foot LT min 3V IMPRESSION: 1. Status post plate and screw fixation of the distal tibia and fibula, grossly intact. 2. Osseous bridging distal tibiofibular syndesmosis. 3. No acute visible fracture or dislocation. 4. Stable arthritic changes of the ankle mortise. 5. Multi joint arthritic changes.
--- NOTE | ~2024-03-23 | XR_ITS ---
EXAMINATION: XR ANKLE, LEFT XR FOOT, LEFT CLINICAL INFORMATION: Pain COMPARISON: Tibia-fibula radiograph from 06/21/2021 TECHNIQUE: 2 views of the left foot 2 views the left ankle FINDINGS: Status post plate and screw fixation of the distal tibia and fibula, grossly intact. Osseous bridging distal tibiofibular syndesmosis. No acute visible fracture or dislocation. Stable arthritic changes of the ankle mortise. Multi joint arthritic changes. Joint spaces and alignment are otherwise maintained. Suspected chronic osteolysis of the fifth proximal phalangeal head. Joint space alignment otherwise maintained. Soft tissues are unremarkable. XR/XR ankle LT min 3V IMPRESSION: 1. Status post plate and screw fixation of the distal tibia and fibula, grossly intact. 2. Osseous bridging distal tibiofibular syndesmosis. 3. No acute visible fracture or dislocation. 4. Stable arthritic changes of the ankle mortise. 5. Multi joint arthritic changes.
[2024-03-23 10:19] VITALS: BP 160/107; BP 179/110; PULSE 111; PULSE 114; RESP 20; TEMP 36.6; O2SAT 96; O2SAT 98; BMI 40.2
--- NOTE | 2024-03-23 10:20 | PC.NURSE ---
pt is alert and oriented, skin appropriate for ethnicity, respirations even and unlabored, pt reports around 0230 getting up from a chair and her left leg gave out and falling hitting her head on a window, reports positive loc for about 6 minutes, no blood thinners, reports left leg pain and lower back pain, 07/18, pt does wear a brief and it was full of urine/feces, pt also states she was on the ground all night, hr slightly elevated
[2024-03-23 12:30] VITALS: BP 140/110; PULSE 108; RESP 16; TEMP 36.8; O2SAT 97
[2024-03-23 12:50] LABS: Basophils Percent Auto 0.4 % (0-2); Eosinophils Percent Auto 0.3 % (0-4); Hematocrit 31.3 % (37.0-47.0); Hemoglobin 9.9 g/dl (12.0-16.0); Imm Gran Abs Auto 0.17 X10*3/uL (0.00-0.03); Imm Gran Pct Auto 1.8 % (0.0-0.4); Lymphocytes Absolute Auto 1.3 X10*3/uL (1.2-4.9); Lymphocytes Percent Auto 14.1 % (20-40); MANUAL DIFF FLAG NO; Mean Corpuscular HGB Conc 31.6 g/dl (31.0-35.0); Mean Corpuscular Hemoglobin 24.6 pg (27.0-33.0); Mean Corpuscular Volume 77.9 fL (80.0-98.0); Mean Platelet Volume 9.5 fL (9.4-12.3); Monocytes Absolute Auto 0.8 X10*3/uL (0.1-1.2); Monocytes Percent Auto 9.1 % (2-11); NRBC Pct Auto 0.2 /100WBC (0.0-0.2); Neutrophils Absolute Auto 6.9 x10*3/uL (2.0-8.3); Neutrophils Percent Auto 74.3 % (45-73); Platelet Count 317 X10*3/uL (160-400); Red Blood Count 4.02 X10*6/uL (4.20-5.50); Red Cell Distribution Width 20.1 % (11.0-16.0); White Blood Count 9.2 X10*3/uL (4.8-10.8)
[2024-03-23 12:56] LABS: Appearance Urine Cloudy; Color Urine Red; Glucose Urine UA 500 mg/dL (Negative); Leukocyte Esterase Urine Trace (Negative); Nitrite Urine Negative (Negative); PH 6.5 (5.0-9.0); Specific Gravity - Urine 1.015 (1.005-1.025); UMIC TRIGGER UACC YES; Urine Blood Large (3+) (Negative); Urine Ketones 15 mg/dL (Negative); Urine Protein 30 (1+) mg/dL (Neg-Trace)
[2024-03-23 12:59] LABS: Bacteria Urine Trace (None Seen); Hyaline Casts Urine 0-2 /LPF (0-2); RBC Urine >20 /HPF (0-2); WBC Urine 0-5 /HPF (0-5)
[2024-03-23 13:07] LABS: Alanine Aminotransferase 9 U/L (0-31); Albumin Level 4.2 g/dL (3.5-5.0); Alkaline Phosphatase 85 U/L (39-117); Anion Gap 14 (12-20); Aspartate Amino Transferase 9 U/L (5-31); Bilirubin Direct 0.1 mg/dL (0.0-0.5); Bilirubin Total 0.3 mg/dL (0.0-1.0); Blood Urea Nitrogen 4 mg/dL (9-16); Calcium 9.6 mg/dL (8.4-10.2); Carbon Dioxide 24 mmol/L (22-29); Chloride 103 mmol/L (96-108); Creatinine Clr Calc Pharmacy 116.2; Estimated Glomerular Filt Rate > 60; Glucose Random 216 mg/dL (60-115); Magnesium 1.9 mg/dL (1.6-2.6); Potassium 3.9 mmol/L (3.3-5.1); Sodium 137 mmol/L (135-145); Total Protein 7.8 g/dL (6.5-8.0)
--- NOTE | 2024-03-23 13:36 | ED.GENADULT ---
HPI - General Adult General Chief complaint: Fall Stated complaint: FALL,+LOC,HEAD/LLE PAIN PER EMS Time Seen by Provider: 03/23/24 13:35 Source: patient and EMS Mode of arrival: EMS Limitations: no limitations History of Present Illness ED Provider: Lulu Carey PA-C HPI narrative: Patient is a 48 year old assigned female at with a history of PTSD, depression, polysubstance abuse, personality disorder, MS with intermittent wheelchair use presenting to the emergency department today with left ankle pain after a fall. Patient states that at 0230 this morning she got up from a chair, tripped, and fell. Patient states that she did hit her head on a window but the window did not break. Patient states that during this fall, her left ankle twisted. Patient denies any dizziness, lightheadedness, abdominal pain, nausea, vomiting, fever, chills, blurry vision, double vision, loss of vision, chest pain, difficulty breathing, shortness of breath, back pain, night sweats, pain with urination, increased urinary frequency, increased urinary urgency, blood in her urine or stool, syncope or a near syncopal episode, bowel incontinence, bladder incontinence, or any other complaints at this time. Onset (ago): hour(s) Location: left and lower extremity Radiation: non-radiation Severity: mild Severity scale (1-10): 3 Relieving factors: none Exacerbating factors: none Associated symptoms: denies other symptoms Treatments prior to arrival: none Related Data Home Medications ?Medication ?Instructions ?Recorded ?Confirmed albuterol sulfate 90 mcg/actuation 2 puff inhalation Q6H PRN 02/10/22 06/23/22 aerosol inhaler (Ventolin HFA) Shortness Of Breath loratadine 10 mg tablet 1 tab PO DAILY 03/24/22 06/23/22 baclofen 10 mg tablet 10 mg PO BID 06/23/22 06/23/22 gabapentin 800 mg tablet 1 tab PO TID neuropathy 06/23/22 06/23/22 hydroxyzine HCl 50 mg tablet 50 mg PO TID 06/23/22 06/23/22 omeprazole 40 mg capsule,delayed 40 mg PO DAILY 06/23/22 06/23/22 release prazosin 2 mg capsule 2 mg PO BEDTIME 06/23/22 06/23/22 quetiapine 400 mg tablet 1 tab PO BEDTIME depressive 06/23/22 06/23/22 disorder quetiapine 50 mg tablet 50 mg PO BID PRN Mood 06/23/22 06/23/22 risperidone 1 mg tablet 1 mg 06/23/22 trazodone 100 mg tablet 150 mg PO BEDTIME PRN Sleep 06/23/22 06/23/22 Previous Rx's ?Medication ?Instructions ?Recorded amlodipine 5 mg tablet 5 mg PO DAILY 30 days #30 tabs 09/07/21 divalproex 500 mg tablet,delayed 500 mg PO BID 30 days #60 tabs 09/07/21 release benzonatate 100 mg capsule 100 mg PO TID PRN cough #14 caps 06/23/22 Allergies Allergy/AdvReac Type Severity Reaction Status Date / Time Iodinated Contrast Media Allergy Severe ANAPHYLAXIS Verified 03/23/24 10:23 [CONTRAST, IV] ibuprofen [From Motrin] Allergy Intermediate SWELLING Verified 03/23/24 10:23 morphine [MORPHINE] Allergy Intermediate RASH Verified 03/23/24 10:23 acetaminophen [From TYLENOL] Allergy Mild HIVES Verified 03/23/24 10:23 bee pollen [Bee Stings] Allergy Mild UNKNOWN Verified 03/23/24 10:23 coconut Allergy Mild HIVES/SWELL Verified 03/23/24 10:23 ING latex [Latex] Allergy Mild HIVES Verified 03/23/24 10:23 NSAIDS (Non-Steroidal Allergy Mild HIVES Verified 03/23/24 10:23 Anti-Inflamma [NSAIDS (NON-STEROIDAL ANTI-INFLAMMA] aspirin [ASA] Allergy Unknown HIVES Verified 03/23/24 10:23 tramadol [TRAMADOL] Allergy Unknown UNKNOWN Verified 03/23/24 10:23 turkey Allergy Unknown UNKNOWN Verified 03/23/24 10:23 lidocaine Allergy Rash Verified 03/23/24 10:23 Peppers, Green Allergy Shortness Verified 03/23/24 10:23 of Breath Peppers, Jalapeno Allergy Shortness Verified 03/23/24 10:23 of Breath Peppers, Red Allergy Shortness Verified 03/23/24 10:23 of Breath Peppers, Yellow Allergy Shortness Verified 03/23/24 10:23 of Breath From Vicodin Allergy Mild RASH Uncoded 02/20/24 16:58 Review of Systems Constitutional: Constitutional: Reports no additional constitutional complaints, Denies chills, Denies fever(s) and Denies night sweats Eyes: Eyes: Reports no additional eye complaints, Denies blurry vision, Denies change in vision, Denies diplopia, Denies eye discharge, Denies loss of vision and Denies eye pain ENT: Denies dizziness Cardiovascular: Cardiovascular: Reports no additional cardiovascular complaints, Denies chest pain, Denies lightheadedness, Denies Loss of Consciousness and Denies dyspnea Respiratory: Respiratory: Reports no additional respiratory complaints and Denies dyspnea Gastrointestinal: Gastrointestinal: Reports no additional gastrointestinal complaints, Denies abdominal pain, Denies melena, Denies hematochezia, Denies change in bowel habits and Denies change in stool character Genitourinary: Genitourinary: Denies hematuria, Denies urinary frequency, Denies dysuria, Denies urinary incontinence, Denies urinary hesitancy and Denies urinary urgency Musculoskeletal: Musculoskeletal: Reports no additional musculoskeletal complaints, Denies numbness and Denies tingling Comments: left ankle pain Neurologic: Denies dizziness, Denies loss of vision, Denies numbness and Denies tingling Psychiatric: Psychiatric: Reports no additional psychiatric complaints Endocrine: Endocrine: Reports no additional endocrine complaints Hematologic/Lymphatic: Hematologic/Lymphatic: Reports no additional hematologic/lymphatic complaints Allergic/Immunologic: Allergic/Immunologic: Reports no additional allergic/immunologic complaints [facility] Past Medical History Attestation statement: The following information was validated with the patient. Source: old records reviewed and nursing notes reviewed Medical History Personality disorder in adult Alcohol abuse Cocaine abuse Multiple sclerosis MDD (major depressive disorder), recurrent episode, severe Post traumatic stress disorder (PTSD) Hypertension History of seizure Fall Multiple sclerosis exacerbation section wound complication Asthma GERD (gastroesophageal reflux disease) Multiple sclerosis Diabetes Surgical History History of left ankle joint replacement History of thoracic surgery Social History Social History Household Members: Spouse Housing: Other Housing Other:: Living in hotel Do you presently have visiting nurse or other home services: No Alcohol intake: never Comment: Patient using wheelchair Patient Tobacco Use Status: Current everyday Tobacco user Tobacco use type: Cigarette Cigarette Packs Per Day: 0.5 Cigarettes Per Day: 5 Years Smoked: 26 Smoked in Last 30 Days: No e-Cigarette/Vaping Use: Never Used Second Hand Smoke Exposure: Yes ( also a smoker) Use of substances other than those prescribed or required for medical reasons: No Substance Use Type: Crack/Cocaine Advance Directives: Yes Advance Directives on File: Yes Advance Directives Date on File: 08/25/20 Do you have a plan to hurt others: No Plan service: No Sexual orientation: Did not discuss Physical Exam ED Vital Signs: Vital Signs - 24 hr 03/23/24 10:19 03/23/24 12:30 03/23/24 14:18 Temperature 97.8 F 98.3 F 98.7 F Pulse Rate 111 H 108 H 110 H Respiratory Rate 20 16 20 Blood Pressure 179/110 H 140/110 H 163/99 H Pulse Oximetry 98 97 95 Oxygen Delivery Method Room Air Room Air Room Air 03/23/24 17:22 03/23/24 18:47 Temperature 0 F L Pulse Rate 105 H 105 H Respiratory Rate 22 H 22 H Blood Pressure 178/111 H 178/111 H Pulse Oximetry 97 97 Oxygen Delivery Method Room Air Room Air BMI result Body Mass Index 40.2 Const General: cooperative, no acute distress, alert and awake Nutritional Appearance: well nourished Orientation/consciousness: patient oriented x3 Limitations: no limitations HENMT Head: Yes normal to inspection and Yes atraumatic Ears: hearing grossly normal bilaterally and external ears normal General nose exam: Normal external nose present, no nasal discharge noted and no epistaxis Face and sinus: Yes normal facial exam, No abrasion and No laceration Mouth: Normal oral and palatal mucosa present, no drooling and no muffled voice Eyes General: appearance normal, both eyes and all related structures Periorbital: periorbital findings normal Eyelids: Yes eyelids normal Conjunctivae: conjunctivae normal Pupils: Equal, round and reactive pupils present EOM: EOMs intact bilaterally Neck Neck: Yes normal visual inspection, Yes full ROM and Yes no lymphadenopathy Chest Chest palpation & inspection: normal inspection of the chest Resp Effort & Inspection: normal respiratory effort and able to speak in complete sentences GI Inspection: Yes normal to inspection Neuro General: patient oriented x3 and moves all extremities Cranial nerves: Yes Equal, round and reactive pupils present Cognition (Neuro): normal cognition Motor exam (neuro): 5/5 motor strength present throughout Sensory Exam: Normal double simultaneous stimulation for sensation Coordination: [id number] test normal Extrem General: Yes normal to inspection, Yes full ROM and Yes capillary refill normal Psych Appearance: grossly normal Mental Status: mental status grossly normal Affect: normal affect Attitude: cooperative Thought process: Normal thought process present Thought content: Normal thought content present Insight: Good insight present (Psych) Medications Administered Discontinued Medications Generic Name Dose Route Start Last Admin Trade Name Remberto PRN Reason Stop Dose Admin Acetaminophen 975 mg 03/23/24 18:10 03/23/24 18:47 Acetaminophen 325 Mg Tablet PO 03/23/24 18:11 Not Given ONCE ONE Medical Decision Making Medical Decision Making [facility] Narrative: Patient is a 48 year old assigned female at with a history of PTSD, depression, polysubstance abuse, personality disorder, MS with intermittent wheelchair use presenting to the emergency department today with left ankle pain after a fall. Patient's physical exam was unremarkable. Patient's blood work showed a chronic anemia. Patient's urine showed no acute process. Patient's left ankle and foot x-rays showed no acute process. Patient's CT head and C-spine showed no acute process. I explained my physical exam findings as well as all test results to the patient. I answered all questions asked by the patient. I stressed the importance of the patient taking her medication as prescribed. I stressed the importance of the patient following up with her primary care provider. I stressed the importance of the patient returning to the emergency department immediately if her symptoms were to worsen or if she were to develop any dizziness, shortness of breath, difficulty breathing, chest pain, blurry vision, loss of vision, nausea, vomiting, abdominal pain, fever, chills, back pain, or any other complaints. Patient verbalized agreement and understanding with this treatment plan and discharge. Differential Diagnosis Differential Diagnoses: The differential diagnosis associated with the presentation includes Fall Ankle pain Ankle strain Ankle sprain Admission/Observation Consideration of admission/observation: Escalation of care including admission/observation considered Patient would have been admitted to the hospital had her work up had any findings where hospital admission was appropriate and her clinical presentation warranted hospital admission. Lab Data [facility] Lab Attestation statement: I reviewed the patient's lab results. My interpretation of these results are in the [facility] Rationale portion of this note. 03/23/24 12:40 03/23/24 12:40 Labs: Lab Results 03/23/24 03/23/24 Range/Units 12:40 12:43 WBC 9.2 (4.8-10.8) X10*3/uL RBC 4.02 L (4.20-5.50) X10*6/uL Hgb 9.9 L D (12.0-16.0) g/dl Hct 31.3 L D (37.0-47.0) % MCV 77.9 L (80.0-98.0) fL MCH 24.6 L (27.0-33.0) pg MCHC 31.6 (31.0-35.0) g/dl RDW 20.1 H (11.0-16.0) % Plt Count 317 D (160-400) X10*3/uL MPV 9.5 (9.4-12.3) fL Immature Gran % (Auto) 1.8 H (0.0-0.4) % Neut % (Auto) 74.3 H (45-73) % Lymph % (Auto) 14.1 L (20-40) % Pike % (Auto) 9.1 (2-11) % Eos % (Auto) 0.3 (0-4) % Baso % (Auto) 0.4 (0-2) % Lymph # (Auto) 1.3 (1.2-4.9) X10*3/uL Pike # (Auto) 0.8 (0.1-1.2) X10*3/uL Eos # (Auto) 0.0 (0.0-0.4) X10*3/uL Baso # (Auto) 0.0 (0.0-0.2) X10*3/uL Abs Immat Gran (auto) 0.17 H (0.00-0.03) X10*3/uL Absolute Neuts (auto) 6.9 (2.0-8.3) x10*3/uL Absolute Nucleated RBC 0.020 H (0.0-0.012) X10*3/uL Nucleated RBC % (auto) 0.2 (0.0-0.2) /100WBC Sodium 137 (135-145) mmol/L Potassium 3.9 (3.3-5.1) mmol/L Chloride 103 (96-108) mmol/L Carbon Dioxide 24 (22-29) mmol/L Anion Gap 14 (12-20) BUN 4 L (9-16) mg/dL Creatinine 0.63 (0.5-1.4) mg/dL Estim Creat Clear Calc 116.2 Estimated GFR > 60 Random Glucose 216 H (60-115) mg/dL Calcium 9.6 (8.4-10.2) mg/dL Magnesium 1.9 (1.6-2.6) mg/dL Total Bilirubin 0.3 (0.0-1.0) mg/dL Direct Bilirubin 0.1 (0.0-0.5) mg/dL AST 9 (5-31) U/L ALT 9 (0-31) U/L Alkaline Phosphatase 85 (39-117) U/L Total Creatine Kinase 79 (26-140) U/L Total Protein 7.8 (6.5-8.0) g/dL Albumin 4.2 (3.5-5.0) g/dL Urine Color Red A Urine Appearance Cloudy Urine pH 6.5 (5.0-9.0) Ur Specific Danese 1.015 (1.005-1.025) Urine Protein 30 (1+) H (Neg-Trace) mg/dL Urine Glucose (UA) 500 H (Negative) mg/dL Urine Ketones 15 (Negative) mg/dL Urine Blood Large (3+) H (Negative) Urine Nitrite Negative (Negative) Ur Leukocyte Esterase Trace H (Negative) Urine RBC >20 H (0-2) /HPF Urine WBC 0-5 (0-5) /HPF Ur Squamous Epith Cells 3-5 (0-2) /HPF Urine Bacteria Trace (None Seen) Hyaline Casts 0-2 (0-2) /LPF Independent Interpretation I performed an independent interpretation of an: Plain X-Ray and CT Scan Interpretation: My interpretation is in agreement with the radiologist's impression of these imaging studies. EXAMINATION: XR ANKLE, LEFT XR FOOT, LEFT CLINICAL INFORMATION: Pain COMPARISON: Tibia-fibula radiograph from 06/21/2021 TECHNIQUE: 2 views of the left foot 2 views the left ankle FINDINGS: Status post plate and screw fixation of the distal tibia and fibula, grossly intact. Osseous bridging distal tibiofibular syndesmosis. No acute visible fracture or dislocation. Stable arthritic changes of the ankle mortise. Multi joint arthritic changes. Joint spaces and alignment are otherwise maintained. Suspected chronic osteolysis of the fifth proximal phalangeal head. Joint space alignment otherwise maintained. Soft tissues are unremarkable. XR/XR foot LT min 3V IMPRESSION: 1. Status post plate and screw fixation of the distal tibia and fibula, grossly intact. 2. Osseous bridging distal tibiofibular syndesmosis. 3. No acute visible fracture or dislocation. 4. Stable arthritic changes of the ankle mortise. 5. Multi joint arthritic changes. Dictated By: Sudarshan Peterson MD Signed By: Electronically signed by Sudarshan Peterson MD 03/23/24 1444 EXAMINATION: CT HEAD WITHOUT CONTRAST CLINICAL INFORMATION: Fall head strike COMPARISON: CT head from 04/20/2022 TECHNIQUE: Contiguous axial imaging was performed from the skull base to vertex without intravenous administration of contrast. This CT examination was performed using dose optimization techniques as appropriate, variously including the following: *Automated exposure control *Adjustment of mA and/or kV according to patient size (this includes techniques or standardized protocols for targeted exams where dose is matched to indication/reason for exam; i.e. extremities or head) *Use of iterative reconstruction technique DLP: 760.17 mGy-cm FINDINGS: There is no evidence of acute intracranial hemorrhage or territorial infarction. Mild cerebral atrophy. No abnormal mass effect or midline shift is seen. Carlton to white matter differentiation is well preserved. No extra-axial fluid collections are identified. The ventricles are normal in size. There is no abnormal attenuation within the brain parenchyma. The osseous structures and soft tissues are normal. The mastoid air cells and visualized portions of the paranasal sinuses are well aerated. CT/CT head/brain wo IV con IMPRESSION: No acute intracranial pathology. EXAMINATION: Noncontrast CT scan of the cervical spine. INDICATION: Fall head strike COMPARISON: CT cervical spine from 04/05/2022 TECHNIQUE: Helical, multidetector axial images were obtained from the occiput to the upper thorax. Coronal and sagittal reformats of the cervical spine were provided for interpretation. DLP: 776.48 mGy-cm FINDINGS: No acute fractures or dislocations of the cervical spine are seen. Straightening the normal cervical curvature. Mild multilevel degenerative changes. Anatomic alignment and positioning of the vertebral bodies and posterior elements is noted. The atlantoaxial joint and craniovertebral articulations are normal without evidence of subluxation. There is no prevertebral soft tissue swelling. The thyroid gland and visualized portions of the lung apices and mediastinum are unremarkable. IMPRESSION: 1. No acute visible fracture or dislocation. 2. Straightening the normal cervical curvature. 3. Mild multilevel degenerative changes. Dictated By: Sudarshan Peterson MD Signed By: Electronically signed by Sudarshan Peterson MD 03/23/24 9257 Radiology Impression Discussion of test interpretation with radiology: I have reviewed the radiologist's reading. Independent Historian Clinical information obtained from an independent historian. History obtained from or confirmed by: EMS (EMS provided additional history and confirmed the history provided by the patient.) Discharge Plan Discharge Clinical Impression: Ankle pain, left, Fall Patient Disposition: Home, Self-Care Instructions: Fall Prevention (ED) Additional Instructions: Follow up with your primary care provider. Return to the emergency department immediately if your symptoms worsen or if you develop any dizziness, shortness of breath, difficulty breathing, chest pain, blurry vision, loss of vision, nausea, vomiting, abdominal pain, fever, chills, back pain, or any other complaints. Prescriptions: No Action amlodipine 5 mg Tablet 5 mg PO DAILY 30 Days Qty: 30 0RF Protocol: Hold for SBP< HOLD for SBP < : 90 divalproex 500 mg Tablet,Delayed Release (Dr/Ec) 500 mg PO BID 30 Days Qty: 60 0RF albuterol sulfate [Ventolin HFA] 90 mcg/actuation HFA aerosol inhaler 2 puff inhalation Q6H PRN (Reason: Shortness Of Breath) loratadine 10 mg tablet 1 tab PO DAILY trazodone 100 mg tablet 150 mg PO BEDTIME PRN (Reason: Sleep) hydroxyzine HCl 50 mg Tablet 50 mg PO TID omeprazole 40 mg Capsule,Delayed Release(Dr/Ec) 40 mg PO DAILY baclofen 10 mg Tablet 10 mg PO BID risperidone 1 mg Tablet 1 mg prazosin 2 mg Capsule 2 mg PO BEDTIME quetiapine 50 mg Tablet 50 mg PO BID PRN (Reason: Mood) quetiapine 400 mg tablet 1 tab PO BEDTIME gabapentin 800 mg tablet 1 tab PO TID benzonatate 100 mg capsule 100 mg PO TID PRN (Reason: cough) Qty: 14 0RF Referrals: [facility] [place] [facility] [place] [Provider Group] (Call to establish and follow up with a primary care provider. If you already have a primary care provider, please follow up with them.) [facility] [place] [facility] [place] Care[facility]ennifer [Provider Group] [facility] [place] [facility] [place] Primary Care[facility]ector [Provider Group] Interventions: ED Discharge Assessment Last Done: 03/23/24 18:47 Discharge Date/Time: 03/23/24 18:48 Print Language: Namibian
[2024-03-23 14:18] VITALS: BP 163/99; PULSE 110; RESP 20; TEMP 37.1; O2SAT 95
--- NOTE | 2024-03-23 16:17 | PC.NURSE ---
pt awaiting transport back to her [facility]
[2024-03-23 17:22] VITALS: BP 178/111; PULSE 105; RESP 22; O2SAT 97
[2024-03-23 18:47] VITALS: BP 178/111; PULSE 105; RESP 22; TEMP -17.7; TEMP 0; O2SAT 97
== END 2024-03-23 18:48 | disposition home or self-care (01) ==
PROVIDERS: Physician Assistant; Emergency Provider Emergency Medicine Emergency Medical Services
DX: Z04.3 Encounter for examination and observation following other accident (principal); M25.572 Pain in left ankle and joints of left foot; Z79.899 Other long term (current) drug therapy
CPT/HCPCS: 36415; 70450; 72125; 73610; 73630; 80048; 80076; 81001; 82550; 83735; 85025; 99284

== ENCOUNTER 2024-05-19 18:40 | Emergency (ER) | payer OTHER, SELFPAY ==
--- NOTE | ~2024-05-19 | XR_ITS ---
EXAMINATION: XR CHEST CLINICAL INFORMATION: Covid positive. Shortness of breath. COMPARISON: 06/23/2022 TECHNIQUE: Frontal view of the chest was obtained. FINDINGS: The patient is mildly rotated. The cardiomediastinal silhouette is stable. There is no focal lung consolidation or pleural effusions. The bony structures and soft tissues are unremarkable. XR/XR chest 1V IMPRESSION: No acute cardiopulmonary process.
[2024-05-19 19:12] VITALS: BP 150/90; BP 169/74; PULSE 90; PULSE 93; RESP 20; TEMP 36.4; O2SAT 97; O2SAT 99; BMI 43.0
[2024-05-19 21:04] VITALS: BP 180/140; PULSE 93; RESP 21; TEMP 36.8; O2SAT 96
[2024-05-19 21:14] VITALS: BP 165/102; PULSE 93; RESP 20; TEMP 36.8; O2SAT 96
--- NOTE | 2024-05-19 21:17 | MHC.EDTECH ---
PT linen changed after urinating on herself and pt placed on a purwick
[2024-05-19 21:56] LABS: COVID-19 Test Positive (Negative); IDNOW Serial# 152EDE1D
[2024-05-19 22:07] LABS: IDNOW Serial# 08D9AD1C; Influenza A Negative (Negative); Influenza B2 Negative (Negative)
--- NOTE | 2024-05-19 22:51 | ED_ITS ---
HPI - General Adult General Chief complaint: Back Pain/Injury Stated complaint: back pain from MS flare up Time Seen by Provider: 05/19/24 22:38 Source: patient, EMS and old records reviewed Mode of arrival: EMS Limitations: no limitations History of Present Illness ED Provider: DR. Bourne HPI narrative: 48-year-old female with history of MS presented with flu-like symptoms for the past 2 days, complaining of generalized body ache, for the last 2 days patient is unable to ambulate due to right-sided weakness for the last 1 or 2 days, patient tested positive for COVID today. Also complaining of left ear pain. Patient with known history of cocaine abuse stated that last time used was 1 week ago and she should have a clean urine today. Patient was evaluated at [facility] 3 days ago for same symptoms. Patient is homeless has no place to go and look in to stay in the ER overnight, no SI, no HI. Patient is asking for oxycodone or Dilaudid for pain and given patient's history of drug abuse patient was offered Tylenol and patient declined. Patient had previous hospitalization and neurology evaluation in the past according to neurology previous note that the patient's symptoms is mainly related to oxycodone abuse. Related Data Home Medications ?Medication ?Instructions ?Recorded ?Confirmed albuterol sulfate 90 mcg/actuation 2 puff inhalation Q6H PRN 02/10/22 06/23/22 aerosol inhaler (Ventolin HFA) Shortness Of Breath loratadine 10 mg tablet 1 tab PO DAILY 03/24/22 06/23/22 baclofen 10 mg tablet 10 mg PO BID 06/23/22 06/23/22 gabapentin 800 mg tablet 1 tab PO TID neuropathy 06/23/22 06/23/22 hydroxyzine HCl 50 mg tablet 50 mg PO TID 06/23/22 06/23/22 omeprazole 40 mg capsule,delayed 40 mg PO DAILY 06/23/22 06/23/22 release prazosin 2 mg capsule 2 mg PO BEDTIME 06/23/22 06/23/22 quetiapine 400 mg tablet 1 tab PO BEDTIME depressive 06/23/22 06/23/22 disorder quetiapine 50 mg tablet 50 mg PO BID PRN Mood 06/23/22 06/23/22 risperidone 1 mg tablet 1 mg 06/23/22 trazodone 100 mg tablet 150 mg PO BEDTIME PRN Sleep 06/23/22 06/23/22 Previous Rx's ?Medication ?Instructions ?Recorded amlodipine 5 mg tablet 5 mg PO DAILY 30 days #30 tabs 09/07/21 divalproex 500 mg tablet,delayed 500 mg PO BID 30 days #60 tabs 09/07/21 release benzonatate 100 mg capsule 100 mg PO TID PRN cough #14 caps 06/23/22 amoxicillin 500 mg capsule 500 mg PO BID #14 caps 05/20/24 Allergies Allergy/AdvReac Type Severity Reaction Status Date / Time Iodinated Contrast Media Allergy Severe ANAPHYLAXIS Verified 05/19/24 19:15 [CONTRAST, IV] ibuprofen [From Motrin] Allergy Intermediate SWELLING Verified 05/19/24 19:15 morphine [MORPHINE] Allergy Intermediate RASH Verified 05/19/24 19:15 acetaminophen [From TYLENOL] Allergy Mild HIVES Verified 05/19/24 19:15 bee pollen [Bee Stings] Allergy Mild UNKNOWN Verified 05/19/24 19:15 coconut Allergy Mild HIVES/SWELL Verified 05/19/24 19:15 ING latex [Latex] Allergy Mild HIVES Verified 05/19/24 19:15 NSAIDS (Non-Steroidal Allergy Mild HIVES Verified 05/19/24 19:15 Anti-Inflamma [NSAIDS (NON-STEROIDAL ANTI-INFLAMMA] aspirin [ASA] Allergy Unknown HIVES Verified 05/19/24 19:15 tramadol [TRAMADOL] Allergy Unknown UNKNOWN Verified 05/19/24 19:15 turkey Allergy Unknown UNKNOWN Verified 05/19/24 19:15 lidocaine Allergy Rash Verified 05/19/24 19:15 Peppers, Green Allergy Shortness Verified 05/19/24 19:15 of Breath Peppers, Jalapeno Allergy Shortness Verified 05/19/24 19:15 of Breath Peppers, Red Allergy Shortness Verified 05/19/24 19:15 of Breath Peppers, Yellow Allergy Shortness Verified 05/19/24 19:15 of Breath From Vicodin Allergy Mild RASH Uncoded 05/19/24 19:15 Review of Systems 2 Review of Systems: All other systems are reviewed and are negative Constitutional: Reports as per HPI and Reports no additional constitutional complaints Eyes: Reports as per HPI and Reports no additional eye complaints Reports system reviewed and no additional complaints, except as documented Cardiovascular: Reports as per HPI and Reports no additional cardiovascular complaints Respiratory: Reports as per HPI and Reports no additional respiratory complaints Gastrointestinal: Reports as per HPI and Reports no additional gastrointestinal complaints Genitourinary: Reports no additional female genitourinary complaints Musculoskeletal: Reports no additional musculoskeletal complaints Skin/Breast: Reports system reviewed and no additional complaints, except as docu Psychiatric: Reports no additional psychiatric complaints Endocrine: Reports no additional endocrine complaints Hematologic/Lymphatic: Reports no additional hematologic/lymphatic complaints Allergic/Immunologic: Reports no additional allergic/immunologic complaints Reports system reviewed and no additional complaints, except as documented and Reports Abnormal speech present FOR[facility]LY [facility], [facility] Past Medical History Medical History Personality disorder in adult Alcohol abuse Cocaine abuse Multiple sclerosis MDD (major depressive disorder), recurrent episode, severe Post traumatic stress disorder (PTSD) Hypertension History of seizure Fall Multiple sclerosis exacerbation section wound complication Asthma GERD (gastroesophageal reflux disease) Multiple sclerosis Diabetes Surgical History History of left ankle joint replacement History of thoracic surgery Social History Social History Household Members: Spouse Housing: Other Housing Other:: Living in hotel Do you presently have visiting nurse or other home services: No Alcohol intake: never Comment: Patient using wheelchair Patient Tobacco Use Status: Current everyday Tobacco user Tobacco use type: Cigarette Cigarette Packs Per Day: 0.5 Cigarettes Per Day: 5 Years Smoked: 26 Smoked in Last 30 Days: Yes e-Cigarette/Vaping Use: Never Used Second Hand Smoke Exposure: Yes ( also a smoker) Use of substances other than those prescribed or required for medical reasons: No Substance Use Type: Crack/Cocaine Advance Directives: Yes Advance Directives on File: Yes Advance Directives Date on File: 08/25/20 Do you have a plan to hurt others: No Plan Patient : No service: No Sexual orientation: Did not discuss Physical Exam ED Vital Signs: Vital Signs - 24 hr 05/19/24 19:12 05/19/24 21:04 05/19/24 21:14 Temperature 97.5 F 98.2 F 98.2 F Pulse Rate 93 93 93 Respiratory Rate 20 21 H 20 Blood Pressure 169/74 H 180/140 H 165/102 H Pulse Oximetry 97 96 96 Oxygen Delivery Method Room Air Room Air Room Air 08/11/24 23:37 05/20/24 05:12 Temperature 98.6 F 98.7 F Pulse Rate 95 103 H Respiratory Rate 16 20 Blood Pressure 131/84 143/92 H Pulse Oximetry 99 97 Oxygen Delivery Method Room Air Room Air BMI result Body Mass Index 43.0 Vital signs have been reviewed and appear to be correct. Blood pressure elevated. Heart rate normal. Respiratory rate normal. Temperature normal. Oxygen saturation normal. Appearance: Alert. Oriented X3. No acute distress. Head: Normal external exam. Normocephalic. Atraumatic. No Banda signs noted. No raccoon eyes noted Eyes: PERRLA. EOMI. Conjunctiva and sclera normal. Eyelids normal. ENT: Left TM erythema and tenderness during the exam. Pharynx normal. Uvula midline. Moist mucous membranes. No trismus noted. No drooling noted. No muffled voice noted. Neck: Normal inspection. Neck supple. FROM. No adenopathy. Thyroid Normal. No meningeal signs. No neck mass noted. CVS: Normal heart rate and rhythm. Heart sound normal. No murmurs noted. Pulses normal throughout. Respiratory: No respiratory distress. Painless inspiration. Breath sounds normal. No wheezes/rales/rhonchi noted. Chest nontender. No accessory muscle usage noted or decreased air movement noted. Abdomen: Soft and nontender. Bowel sounds normal in all 4 quadrants. No distention noted. No organomegaly noted. No visible injury noted. Back: No CVA tenderness. Full range of motion noted. Skin: Skin warm and dry. Normal skin color. Normal skin turgor. No rashes/lesions/lacerations noted. Extremities: No lower extremity edema. Extremities exhibit normal range of motion. Extremities nontender. Neuro: Oriented X 3. Cranial nerve exam: II-XII are grossly intact No motor deficit equal strength in 4 extremities. No sensory deficit. Reflexes normal. Course Reevaluation(s) Reevaluation #1: 48-year-old female homeless, polysubstance abuse, presented with flu-like symptoms and left ear infection tested positive for COVID 19, normal O2 sat, no tachypnea, chest x-ray showed no acute infection, left OM will start on amoxicillin. Leukocytosis secondary to left OM. Time: 01:11 Medications Administered Discontinued Medications Generic Name Dose Route Start Last Admin Trade Name Remberto PRN Reason Stop Dose Admin Amoxicillin 500 mg 05/20/24 01:08 05/20/24 01:51 Amoxicillin 500 Mg Capsule PO 05/20/24 01:09 500 mg ONCE ONE Administration Sodium Chloride 1,000 mls @ 999 mls/hr 05/19/24 22:43 05/20/24 00:35 Ns IV 05/19/24 23:43 Infused .Q1H1M ONE Infusion Medical Decision Making Differential Diagnosis Differential Diagnoses: The differential diagnosis associated with the presentation includes (Substance abuse, pneumonia, pneumothorax, COVID infection, otitis media, electrolyte derangement, severe anemia.) Admission/Observation Consideration of admission/observation: Escalation of care including admission/observation considered Lab Data MDM Lab Attestation statement: I reviewed the patient's lab results. 05/19/24 23:30 05/19/24 23:31 Labs: Lab Results 05/19/24 05/19/24 05/19/24 Range/Units 21:37 23:30 23:31 WBC 14.3 H (4.8-10.8) X10*3/uL RBC 4.53 (4.20-5.50) X10*6/uL Hgb 10.9 L (12.0-16.0) g/dl Hct 35.1 L (37.0-47.0) % MCV 77.5 L (80.0-98.0) fL MCH 24.1 L (27.0-33.0) pg MCHC 31.1 (31.0-35.0) g/dl RDW 18.8 H (11.0-16.0) % Plt Count 330 (160-400) X10*3/uL MPV 10.5 (9.4-12.3) fL Immature Gran % (Auto) 2.7 H (0.0-0.4) % Neut % (Auto) 74.0 H (45-73) % Lymph % (Auto) 17.1 L (20-40) % [place] % (Auto) 5.1 (2-11) % Eos % (Auto) 0.8 (0-4) % Baso % (Auto) 0.3 (0-2) % Lymph # (Auto) 2.4 (1.2-4.9) X10*3/uL [place] # (Auto) 0.7 (0.1-1.2) X10*3/uL Eos # (Auto) 0.1 (0.0-0.4) X10*3/uL Baso # (Auto) 0.0 (0.0-0.2) X10*3/uL Abs Immat Gran (auto) 0.39 H (0.00-0.03) X10*3/uL Absolute Neuts (auto) 10.5 H (2.0-8.3) x10*3/uL Absolute Nucleated RBC 0.060 H (0.0-0.012) X10*3/uL Nucleated RBC % (auto) 0.4 H (0.0-0.2) /100WBC Sodium 140 (135-145) mmol/L Potassium 4.1 (3.3-5.1) mmol/L Chloride 104 (96-108) mmol/L Carbon Dioxide 23 (22-29) mmol/L Anion Gap 17 (12-20) BUN 7 L (9-16) mg/dL Creatinine 0.75 (0.5-1.4) mg/dL Estim Creat Clear Calc 138.3 Estimated GFR > 60 Random Glucose 121 H (60-115) mg/dL Calcium 9.7 (8.4-10.2) mg/dL Total Bilirubin 0.3 (0.0-1.0) mg/dL Direct Bilirubin 0.1 (0.0-0.5) mg/dL AST 13 (5-31) U/L ALT 11 (0-31) U/L Alkaline Phosphatase 83 (39-117) U/L Troponin I High Sens < 2.7 (<3.5-17.0) ng/L B-Natriuretic Peptide < 10 (<100) pg/mL Total Protein 8.3 H (6.5-8.0) g/dL Albumin 4.4 (3.5-5.0) g/dL Lipase 21 (8-78) U/L Urine Color Yellow Urine Appearance Clear Urine pH 6.0 (5.0-9.0) Ur Specific [place] 1.025 (1.005-1.025) Urine Protein Trace (Neg-Trace) mg/dL Urine Glucose (UA) Negative (Negative) mg/dL Urine Ketones 15 (Negative) mg/dL Urine Blood Negative (Negative) Urine Nitrite Negative (Negative) Ur Leukocyte Esterase Trace H (Negative) Urine RBC 0-2 (0-2) /HPF Urine WBC 0-5 (0-5) /HPF Ur Squamous Epith Cells 6-10 (0-2) /HPF Urine Bacteria Trace (None Seen) Hyaline Casts 0-2 (0-2) /LPF Urine Test NEGATIVE (NEGATIVE) Urine Opiates Screen Not Detected (Not Detect) Ur Buprenorphine Scrn Not Detected (Not Detect) ng/mL Ur Oxycodone Screen Positive H (Not Detect) ng/mL Urine Methadone Screen Not Detected (Not Detect) ng/mL Urine Fentanyl Screen Not Detected (Not Detect) Ur Barbiturates Screen Not Detected (Not Detect) Ur Phencyclidine Scrn Not Detected (Not Detect) Ur Amphetamines Screen POSITIVE H (Not Detect) U Benzodiazepines Scrn Not Detected (Not Detect) Urine Cocaine Screen POSITIVE H (Not Detect) U Marijuana (THC) Screen Not Detected (Not Detect) COVID-19 (BRENDA) Positive A (Negative) COVID-19 Clin Com See Note Influenza Type A (MOLLY) Negative (Negative) Influenza Type B (MOLLY) Negative (Negative) Influenza A & B Note See Note Independent Interpretation I performed an independent interpretation of an: Plain X-Ray (No acute cardiopulmonary process.) Radiology Impression Discussion of test interpretation with radiology: I have reviewed the radiologist's reading. Chronic Conditions Patient?s care impacted by: Other (Homeless, polysubstance abuse.) Discharge Plan Discharge Clinical Impression: COVID-19, Otitis media, Substance abuse Patient Disposition: Home, Self-Care Instructions: Ear Infection (ED), COVID-19 (Coronavirus Disease 2019) (ED) Prescriptions: New amoxicillin 500 mg capsule 500 mg PO BID Qty: 14 0RF No Action amlodipine 5 mg Tablet 5 mg PO DAILY 30 Days Qty: 30 0RF Protocol: Hold for SBP< HOLD for SBP < : 90 divalproex 500 mg Tablet,Delayed Release (Dr/Ec) 500 mg PO BID 30 Days Qty: 60 0RF albuterol sulfate [Ventolin HFA] 90 mcg/actuation HFA aerosol inhaler 2 puff inhalation Q6H PRN (Reason: Shortness Of Breath) loratadine 10 mg tablet 1 tab PO DAILY trazodone 100 mg tablet 150 mg PO BEDTIME PRN (Reason: Sleep) hydroxyzine HCl 50 mg Tablet 50 mg PO TID omeprazole 40 mg Capsule,Delayed Release(Dr/Ec) 40 mg PO DAILY baclofen 10 mg Tablet 10 mg PO BID risperidone 1 mg Tablet 1 mg prazosin 2 mg Capsule 2 mg PO BEDTIME quetiapine 50 mg Tablet 50 mg PO BID PRN (Reason: Mood) quetiapine 400 mg tablet 1 tab PO BEDTIME gabapentin 800 mg tablet 1 tab PO TID benzonatate 100 mg capsule 100 mg PO TID PRN (Reason: cough) Qty: 14 0RF Print Language: Macedonian
[2024-05-19] MEDS: 0.9 % Sodium Chloride 1,000 ML 999 ML IV (23:34)
[2024-05-19 23:37] VITALS: BP 131/84; PULSE 95; RESP 16; TEMP 37; O2SAT 99
[2024-05-19 23:37] LABS: MANUAL DIFF FLAG NO
[2024-05-19 23:40] LABS: Basophils Percent Auto 0.3 % (0-2); Eosinophils Absolute Auto 0.1 X10*3/uL (0.0-0.4); Eosinophils Percent Auto 0.8 % (0-4); Hematocrit 35.1 % (37.0-47.0); Hemoglobin 10.9 g/dl (12.0-16.0); Imm Gran Abs Auto 0.39 X10*3/uL (0.00-0.03); Imm Gran Pct Auto 2.7 % (0.0-0.4); Lymphocytes Absolute Auto 2.4 X10*3/uL (1.2-4.9); Lymphocytes Percent Auto 17.1 % (20-40); Mean Corpuscular HGB Conc 31.1 g/dl (31.0-35.0); Mean Corpuscular Hemoglobin 24.1 pg (27.0-33.0); Mean Corpuscular Volume 77.5 fL (80.0-98.0); Mean Platelet Volume 10.5 fL (9.4-12.3); Monocytes Absolute Auto 0.7 X10*3/uL (0.1-1.2); Monocytes Percent Auto 5.1 % (2-11); NRBC Pct Auto 0.4 /100WBC (0.0-0.2); Neutrophils Absolute Auto 10.5 x10*3/uL (2.0-8.3); Platelet Count 330 X10*3/uL (160-400); Red Blood Count 4.53 X10*6/uL (4.20-5.50); Red Cell Distribution Width 18.8 % (11.0-16.0); White Blood Count 14.3 X10*3/uL (4.8-10.8)
[2024-05-19 23:40] LABS: Appearance Urine Clear; Color Urine Yellow; Glucose Urine UA Negative (Negative); Leukocyte Esterase Urine Trace (Negative); Nitrite Urine Negative (Negative); Specific Gravity - Urine 1.025 (1.005-1.025); UMIC TRIGGER UACC YES; Urine Blood Negative (Negative); Urine Ketones 15 mg/dL (Negative); Urine Protein Trace mg/dL (Neg-Trace)
[2024-05-19 23:43] LABS: UPreg QC Valid YES; Urine Pregnancy NEGATIVE (NEGATIVE)
[2024-05-19 23:57] LABS: Amphetamine Screen Urine POSITIVE (Not Detect); Barbiturates, Urine Not Detected (Not Detect); Benzodiazepines Screen Urine Not Detected (Not Detect); Buprenorphine Scr Not Detected (Not Detect); Cannabinoid Screen Urine Not Detected (Not Detect); Cocaine Screen Urine POSITIVE (Not Detect); Fentanyl, urine Not Detected (Not Detect); Methadone Screen, Urine Not Detected (Not Detect); Opiate Screen Urine Not Detected (Not Detect); Oxycodone Screen Urine Positive (Not Detect); Phencyclidine Screen Urine Not Detected (Not Detect)
[2024-05-19 23:58] LABS: Bacteria Urine Trace (None Seen); Hyaline Casts Urine 0-2 /LPF (0-2); RBC Urine 0-2 /HPF (0-2); WBC Urine 0-5 /HPF (0-5)
[2024-05-20] LABS: B Type Natriuretic Peptide < 10 pg/mL (<100)
[2024-05-20 00:01] LABS: Troponin-I High Sensitivity < 2.7 ng/L (<3.5-17.0)
[2024-05-20 00:14] LABS: Alanine Aminotransferase 11 U/L (0-31); Albumin Level 4.4 g/dL (3.5-5.0); Alkaline Phosphatase 83 U/L (39-117); Anion Gap 17 (12-20); Aspartate Amino Transferase 13 U/L (5-31); Bilirubin Direct 0.1 mg/dL (0.0-0.5); Bilirubin Total 0.3 mg/dL (0.0-1.0); Blood Urea Nitrogen 7 mg/dL (9-16); Calcium 9.7 mg/dL (8.4-10.2); Carbon Dioxide 23 mmol/L (22-29); Chloride 104 mmol/L (96-108); Creatinine Clr Calc Pharmacy 138.3; Estimated Glomerular Filt Rate > 60; Glucose Random 121 mg/dL (60-115); Lipase 21 U/L (8-78); Potassium 4.1 mmol/L (3.3-5.1); Sodium 140 mmol/L (135-145); Total Protein 8.3 g/dL (6.5-8.0)
[2024-05-20] MEDS: Amoxicillin 500 MG CAPSULE PO (01:51)
[2024-05-20 05:12] VITALS: BP 143/92; PULSE 103; RESP 20; TEMP 37.1; O2SAT 97
[2024-05-20 06:19] VITALS: BP 143/92; PULSE 103; RESP 20; TEMP 37.1; O2SAT 97
[2024-05-20 06:45] VITALS: BP 150/93; PULSE 102; RESP 14; TEMP 36.9; O2SAT 95
--- NOTE | 2024-05-20 07:24 | PC.NURSE ---
patient changed into personal clothes, [facility] picked patient up for tx home
[2024-05-20 07:25] VITALS: BP 150/93; PULSE 102; RESP 14; TEMP 36.9; O2SAT 95
== END 2024-05-20 07:26 | disposition home or self-care (01) ==
PROVIDERS: Emergency Provider Emergency Medicine
DX: U07.1 COVID-19 (principal); H66.92 Otitis media, unspecified, left ear; M54.50 Low back pain, unspecified; M79.10 Myalgia, unspecified site; R26.2 Difficulty in walking, not elsewhere classified; R06.02 Shortness of breath; F14.10 Cocaine abuse, uncomplicated; F17.210 Nicotine dependence, cigarettes, uncomplicated; Z79.899 Other long term (current) drug therapy; Z51.81 Encounter for therapeutic drug level monitoring; Z11.52 Encounter for screening for COVID-19
CPT/HCPCS: 36415; 51702; 71045; 80048; 80076; 80307; 81001; 81025; 83690; 83880; 84484; 85025; 87502; 87635; 99284; 99285

== ENCOUNTER 2024-07-06 16:15 | Emergency (ER) | payer OTHER, SELFPAY ==
--- NOTE | ~2024-07-06 | XR_ITS ---
EXAMINATION: XR CHEST CLINICAL INFORMATION: Mental status change. Patient unresponsive COMPARISON: 05/19/2024 TECHNIQUE: Frontal view of the chest was obtained. FINDINGS: The lungs are hypoexpanded. Left basilar atelectasis/infiltrate present, new when compared to prior. The right lung is clear. Heart size within normal limits. XR/XR chest 1V IMPRESSION: Left basilar atelectasis/infiltrate. Electronically signed by: Oneal Joseph MD 07/06/2024 05:44 PM EDT RP
[2024-07-06 16:30] VITALS: BP 126/80; BP 160/82; PULSE 102; PULSE 90; RESP 18; TEMP 36.5; O2SAT 99; BMI 49.0
--- NOTE | 2024-07-06 16:38 | ED.GENADULT ---
HPI - General Adult General Chief complaint: Weakness Stated complaint: lethargy,headache Time Seen by Provider: 07/06/24 16:32 Source: patient and EMS Mode of arrival: EMS Limitations: no limitations History of Present Illness ED Provider: DR. Bourne HPI narrative: 46-year-old woman with complicated neuro psychiatric history, questionable diagnosis of multiple sclerosis with [facility] confirmed by neurologist, long history of alcohol and cocaine use, came in by ambulance from [facility] for evaluation of lethargy since last night, patient in the emergency department is lethargic but able to answer some question with sternal rub, declined using any substance for the last couple days, patient at this moment is non historian. Related Data Home Medications ?Medication ?Instructions ?Recorded ?Confirmed albuterol sulfate 90 mcg/actuation 2 puff inhalation Q6H PRN 02/10/22 06/23/22 aerosol inhaler (Ventolin HFA) Shortness Of Breath loratadine 10 mg tablet 1 tab PO DAILY 03/24/22 06/23/22 baclofen 10 mg tablet 10 mg PO BID 06/23/22 06/23/22 gabapentin 800 mg tablet 1 tab PO TID neuropathy 06/23/22 06/23/22 hydroxyzine HCl 50 mg tablet 50 mg PO TID 06/23/22 06/23/22 omeprazole 40 mg capsule,delayed 40 mg PO DAILY 06/23/22 06/23/22 release prazosin 2 mg capsule 2 mg PO BEDTIME 06/23/22 06/23/22 quetiapine 400 mg tablet 1 tab PO BEDTIME depressive 06/23/22 06/23/22 disorder quetiapine 50 mg tablet 50 mg PO BID PRN Mood 06/23/22 06/23/22 risperidone 1 mg tablet 1 mg 06/23/22 trazodone 100 mg tablet 150 mg PO BEDTIME PRN Sleep 06/23/22 06/23/22 Previous Rx's ?Medication ?Instructions ?Recorded amlodipine 5 mg tablet 5 mg PO DAILY 30 days #30 tabs 09/07/21 divalproex 500 mg tablet,delayed 500 mg PO BID 30 days #60 tabs 09/07/21 release benzonatate 100 mg capsule 100 mg PO TID PRN cough #14 caps 06/23/22 amoxicillin 500 mg capsule 500 mg PO BID #14 caps 05/20/24 Allergies Allergy/AdvReac Type Severity Reaction Status Date / Time Iodinated Contrast Media Allergy Severe ANAPHYLAXIS Verified 07/06/24 16:33 [CONTRAST, IV] ibuprofen [From Motrin] Allergy Intermediate SWELLING Verified 07/06/24 16:33 morphine [MORPHINE] Allergy Intermediate RASH Verified 07/06/24 16:33 acetaminophen [From TYLENOL] Allergy Mild HIVES Verified 07/06/24 16:33 bee pollen [Bee Stings] Allergy Mild UNKNOWN Verified 07/06/24 16:33 coconut Allergy Mild HIVES/SWELL Verified 07/06/24 16:33 ING latex [Latex] Allergy Mild HIVES Verified 07/06/24 16:33 NSAIDS (Non-Steroidal Allergy Mild HIVES Verified 07/06/24 16:33 Anti-Inflamma [NSAIDS (NON-STEROIDAL ANTI-INFLAMMA] aspirin [ASA] Allergy Unknown HIVES Verified 07/06/24 16:33 tramadol [TRAMADOL] Allergy Unknown UNKNOWN Verified 07/06/24 16:33 turkey Allergy Unknown UNKNOWN Verified 07/06/24 16:33 lidocaine Allergy Rash Verified 07/06/24 16:33 Peppers, Green Allergy Shortness Verified 07/06/24 16:33 of Breath Peppers, Jalapeno Allergy Shortness Verified 07/06/24 16:33 of Breath Peppers, Red Allergy Shortness Verified 07/06/24 16:33 of Breath Peppers, Yellow Allergy Shortness Verified 07/06/24 16:33 of Breath From Vicodin Allergy Mild RASH Uncoded 05/19/24 19:15 Review of Systems Review of Systems: Yes Unobtainable due to mental status PMFSH Past Medical History Medical History Personality disorder in adult Alcohol abuse Cocaine abuse Multiple sclerosis MDD (major depressive disorder), recurrent episode, severe Post traumatic stress disorder (PTSD) Hypertension History of seizure Fall Multiple sclerosis exacerbation section wound complication Asthma GERD (gastroesophageal reflux disease) Multiple sclerosis Diabetes Surgical History History of left ankle joint replacement History of thoracic surgery Social History Social History Household Members: Spouse Housing: Other Housing Other:: Living in hotel Do you presently have visiting nurse or other home services: No Alcohol intake: never Comment: Patient using wheelchair Patient Tobacco Use Status: Current everyday Tobacco user Tobacco use type: Cigarette Cigarette Packs Per Day: 0.5 Cigarettes Per Day: 5 Years Smoked: 26 e-Cigarette/Vaping Use: Never Used Second Hand Smoke Exposure: Yes ( also a smoker) Substance Use Type: Crack/Cocaine Advance Directives: Yes Advance Directives on File: Yes Advance Directives Date on File: 08/25/20 Do you have a plan to hurt others: No Plan service: No Sexual orientation: Did not discuss Physical Exam ED Vital Signs: Vital Signs - 24 hr 07/06/24 16:30 07/06/24 18:49 Temperature 97.7 F 97.9 F Pulse Rate 102 H 97 Respiratory Rate 18 16 Blood Pressure 126/80 139/81 Pulse Oximetry 99 98 Oxygen Delivery Method Room Air Room Air BMI result Body Mass Index 49.0 Vital signs have been reviewed and appear to be correct. Blood pressure elevated. Heart rate normal. Respiratory rate normal. Temperature normal. Oxygen saturation normal. Appearance: lethargic, arousable to sternal rub. No acute distress. Head: Normal external exam. Normocephalic. Atraumatic. No Banda signs noted. No raccoon eyes noted Eyes: PERRLA. EOMI. Conjunctiva and sclera normal. Eyelids normal. ENT: TM's Normal. Pharynx normal. Uvula midline. Moist mucous membranes. No trismus noted. No drooling noted. No muffled voice noted. Neck: Normal inspection. Neck supple. FROM. No adenopathy. Thyroid Normal. No meningeal signs. No neck mass noted. CVS: Normal heart rate and rhythm. Heart sound normal. No murmurs noted. Pulses normal throughout. Respiratory: No respiratory distress. Painless inspiration. Breath sounds normal. No wheezes/rales/rhonchi noted. Chest nontender. No accessory muscle usage noted or decreased air movement noted. Abdomen: Soft and nontender. Bowel sounds normal in all 4 quadrants. No distention noted. No organomegaly noted. No visible injury noted. Back: No CVA tenderness. Full range of motion noted. Skin: Skin warm and dry. Normal skin color. Normal skin turgor. No rashes/lesions/lacerations noted. Extremities: No lower extremity edema. Extremities exhibit normal range of motion. Extremities nontender. Neuro: Cranial nerve exam: II-XII are grossly intact No motor deficit. No sensory deficit. Reflexes normal. Course Reevaluation(s) Reevaluation #1: history of substance abuse, patient has been lethargic he is now arousable in the emergency department, x-ray is concern of left basilar infiltrate, patient has a difficult IV access will start on oral cefuroxime and doxycycline. The case was signed out to Dr. Roman to repeat lactic acid and reassess mental status. Time: 21:18 Medical Decision Making Differential Diagnosis Differential Diagnoses: The differential diagnosis associated with the presentation includes ( Substance abuse, electrolyte derangement, severe anemia, pneumonia, pneumothorax, UTI, pyelonephritis.) Admission/Observation Consideration of admission/observation: Escalation of care including admission/observation considered Lab Data MDM Lab Attestation statement: I reviewed the patient's lab results. 07/06/24 20:07 07/06/24 20:07 Labs: Lab Results 07/06/24 07/06/24 07/06/24 Range/Units 17:55 18:57 20:07 WBC 8.3 (4.8-10.8) X10*3/uL RBC 3.85 L (4.20-5.50) X10*6/uL Hgb 9.6 L (12.0-16.0) g/dl Hct 30.4 L (37.0-47.0) % MCV 79.0 L (80.0-98.0) fL MCH 24.9 L (27.0-33.0) pg MCHC 31.6 (31.0-35.0) g/dl RDW 19.6 H (11.0-16.0) % Plt Count 273 (160-400) X10*3/uL MPV 10.8 (9.4-12.3) fL Immature Gran % (Auto) 1.3 H (0.0-0.4) % Neut % (Auto) 66.7 (45-73) % Lymph % (Auto) 21.7 (20-40) % [place] % (Auto) 7.7 (2-11) % Eos % (Auto) 2.2 (0-4) % Baso % (Auto) 0.4 (0-2) % Lymph # (Auto) 1.8 (1.2-4.9) X10*3/uL [place] # (Auto) 0.6 (0.1-1.2) X10*3/uL Eos # (Auto) 0.2 (0.0-0.4) X10*3/uL Baso # (Auto) 0.0 (0.0-0.2) X10*3/uL Abs Immat Gran (auto) 0.11 H (0.00-0.03) X10*3/uL Absolute Neuts (auto) 5.6 (2.0-8.3) x10*3/uL Absolute Nucleated RBC 0.000 (0.0-0.012) X10*3/uL Nucleated RBC % (auto) 0.0 (0.0-0.2) /100WBC Sodium 142 (135-145) mmol/L Potassium 3.9 (3.3-5.1) mmol/L Chloride 104 (96-108) mmol/L Carbon Dioxide 27 (22-29) mmol/L Anion Gap 15 (12-20) BUN 6 L (9-16) mg/dL Creatinine 0.71 (0.5-1.4) mg/dL Estim Creat Clear Calc 141.7 Estimated GFR > 60 Random Glucose 121 H (60-115) mg/dL Lactic Acid 2.5 H* (0.5-2.0) mmol/L Calcium 9.3 (8.4-10.2) mg/dL Total Bilirubin 0.2 (0.0-1.0) mg/dL Direct Bilirubin < 0.2 (0.0-0.5) mg/dL AST 8 (5-31) U/L ALT 10 (0-31) U/L Alkaline Phosphatase 66 (39-117) U/L Troponin I High Sens < 2.7 (<3.5-17.0) ng/L Total Protein 7.1 (6.5-8.0) g/dL Albumin 3.8 (3.5-5.0) g/dL Lipase 13 (8-78) U/L Urine Color Dark Yellow Urine Appearance Clear Urine pH 5.5 (5.0-9.0) Ur Specific [place] 1.025 (1.005-1.025) Urine Protein Trace (Neg-Trace) mg/dL Urine Glucose (UA) Negative (Negative) mg/dL Urine Ketones 15 (Negative) mg/dL Urine Blood Negative (Negative) Urine Nitrite Negative (Negative) Ur Leukocyte Esterase Trace H (Negative) Urine RBC 0-2 (0-2) /HPF Urine WBC 0-5 (0-5) /HPF Ur Squamous Epith Cells 6-10 (0-2) /HPF Urine Bacteria None Seen (None Seen) Hyaline Casts 0-2 (0-2) /LPF Urine Opiates Screen POSITIVE H (Not Detect) Ur Buprenorphine Scrn Not Detected (Not Detect) ng/mL Ur Oxycodone Screen Positive H (Not Detect) ng/mL Urine Methadone Screen Not Detected (Not Detect) ng/mL Urine Fentanyl Screen Not Detected (Not Detect) Ur Barbiturates Screen Not Detected (Not Detect) Ur Phencyclidine Scrn Not Detected (Not Detect) Ur Amphetamines Screen Not Detected (Not Detect) U Benzodiazepines Scrn Not Detected (Not Detect) Urine Cocaine Screen Not Detected (Not Detect) U Marijuana (THC) Screen Not Detected (Not Detect) Influenza Type A (PCR) NEGATIVE (Negative) Influenza Type B (PCR) NEGATIVE (Negative) RSV RNA Qual (PCR) NEGATIVE (Negative) SARS-CoV-2 RNA (RT-PCR) NEGATIVE (Negative) Independent Interpretation I performed an independent interpretation of an: Plain X-Ray ( Chest:Left basilar atelectasis/infiltrate. ) Radiology Impression Discussion of test interpretation with radiology: I have reviewed the radiologist's reading. Discharge Plan Discharge Clinical Impression: Pneumonia, Substance abuse, Change in mental status Patient Disposition: Still a Patient Prescriptions: No Action amlodipine 5 mg Tablet 5 mg PO DAILY 30 Days Qty: 30 0RF Protocol: Hold for SBP< HOLD for SBP < : 90 divalproex 500 mg Tablet,Delayed Release (Dr/Ec) 500 mg PO BID 30 Days Qty: 60 0RF albuterol sulfate [Ventolin HFA] 90 mcg/actuation HFA aerosol inhaler 2 puff inhalation Q6H PRN (Reason: Shortness Of Breath) loratadine 10 mg tablet 1 tab PO DAILY trazodone 100 mg tablet 150 mg PO BEDTIME PRN (Reason: Sleep) hydroxyzine HCl 50 mg Tablet 50 mg PO TID omeprazole 40 mg Capsule,Delayed Release(Dr/Ec) 40 mg PO DAILY baclofen 10 mg Tablet 10 mg PO BID risperidone 1 mg Tablet 1 mg prazosin 2 mg Capsule 2 mg PO BEDTIME quetiapine 50 mg Tablet 50 mg PO BID PRN (Reason: Mood) quetiapine 400 mg tablet 1 tab PO BEDTIME gabapentin 800 mg tablet 1 tab PO TID benzonatate 100 mg capsule 100 mg PO TID PRN (Reason: cough) Qty: 14 0RF amoxicillin 500 mg capsule 500 mg PO BID Qty: 14 0RF Print Language: Algerian
--- NOTE | 2024-07-06 16:49 | ECG_ITS ---
Test Reason : MENTUL STATUS CHANGE Blood Pressure : / mmHG Vent. Rate : 096 BPM Atrial Rate : 096 BPM P-R Int : 150 ms QRS Dur : 092 ms QT Int : 342 ms P-R-T Axes : 037 -23 097 degrees QTc Int : 432 ms Normal sinus rhythm Moderate voltage criteria for LVH, may be normal variant ( R in aVL , [place] product ) Possible Anterolateral infarct (cited on or before 24-FEB-2022) Abnormal ECG When compared with ECG of 20-APR-2022 14:51, Questionable change in initial forces of Lateral leads Referred By: Rosamaria Bourne Electronically Signed By:SIRI ZULETA
[2024-07-06 18:36] LABS: Influenza A PCR NEGATIVE (Negative); Influenza B PCR NEGATIVE (Negative); Resp Syncy Virus RNA Qual PCR NEGATIVE (Negative); SARS COV2 PCR INHOUSE NEGATIVE (Negative)
[2024-07-06 18:49] VITALS: BP 139/81; PULSE 97; RESP 16; TEMP 36.6; O2SAT 98
--- NOTE | 2024-07-06 18:49 | PC.NURSE ---
patient refusing blood work at this time. able to obtain urine sample via straight cath
[2024-07-06 19:10] LABS: Appearance Urine Clear; Color Urine Dark Yellow; Glucose Urine UA Negative (Negative); Leukocyte Esterase Urine Trace (Negative); Nitrite Urine Negative (Negative); PH 5.5 (5.0-9.0); Specific Gravity - Urine 1.025 (1.005-1.025); UMIC TRIGGER UACC YES; Urine Blood Negative (Negative); Urine Ketones 15 mg/dL (Negative); Urine Protein Trace mg/dL (Neg-Trace)
[2024-07-06 19:15] LABS: Bacteria Urine None Seen (None Seen); Hyaline Casts Urine 0-2 /LPF (0-2); RBC Urine 0-2 /HPF (0-2); WBC Urine 0-5 /HPF (0-5)
[2024-07-06 19:19] LABS: Amphetamine Screen Urine Not Detected (Not Detect); Barbiturates, Urine Not Detected (Not Detect); Benzodiazepines Screen Urine Not Detected (Not Detect); Buprenorphine Scr Not Detected (Not Detect); Cannabinoid Screen Urine Not Detected (Not Detect); Cocaine Screen Urine Not Detected (Not Detect); Fentanyl, urine Not Detected (Not Detect); Methadone Screen, Urine Not Detected (Not Detect); Opiate Screen Urine POSITIVE (Not Detect); Oxycodone Screen Urine Positive (Not Detect); Phencyclidine Screen Urine Not Detected (Not Detect)
[2024-07-06 20:13] LABS: MANUAL DIFF FLAG NO
[2024-07-06 20:15] LABS: Basophils Percent Auto 0.4 % (0-2); Eosinophils Absolute Auto 0.2 X10*3/uL (0.0-0.4); Eosinophils Percent Auto 2.2 % (0-4); Hematocrit 30.4 % (37.0-47.0); Hemoglobin 9.6 g/dl (12.0-16.0); Imm Gran Abs Auto 0.11 X10*3/uL (0.00-0.03); Imm Gran Pct Auto 1.3 % (0.0-0.4); Lymphocytes Absolute Auto 1.8 X10*3/uL (1.2-4.9); Lymphocytes Percent Auto 21.7 % (20-40); Mean Corpuscular HGB Conc 31.6 g/dl (31.0-35.0); Mean Corpuscular Hemoglobin 24.9 pg (27.0-33.0); Mean Platelet Volume 10.8 fL (9.4-12.3); Monocytes Absolute Auto 0.6 X10*3/uL (0.1-1.2); Monocytes Percent Auto 7.7 % (2-11); Neutrophils Absolute Auto 5.6 x10*3/uL (2.0-8.3); Neutrophils Percent Auto 66.7 % (45-73); Platelet Count 273 X10*3/uL (160-400); Red Blood Count 3.85 X10*6/uL (4.20-5.50); Red Cell Distribution Width 19.6 % (11.0-16.0); White Blood Count 8.3 X10*3/uL (4.8-10.8)
--- NOTE | 2024-07-06 20:35 | PC.NURSE ---
pt a hard stick. provider at bedside for U/S IV access. 2 attempts unsuccessful. labs obtained
[2024-07-06 20:39] LABS: Alanine Aminotransferase 10 U/L (0-31); Albumin Level 3.8 g/dL (3.5-5.0); Alkaline Phosphatase 66 U/L (39-117); Anion Gap 15 (12-20); Aspartate Amino Transferase 8 U/L (5-31); Bilirubin Direct < 0.2 mg/dL (0.0-0.5); Bilirubin Total 0.2 mg/dL (0.0-1.0); Blood Urea Nitrogen 6 mg/dL (9-16); Calcium 9.3 mg/dL (8.4-10.2); Carbon Dioxide 27 mmol/L (22-29); Chloride 104 mmol/L (96-108); Creatinine Clr Calc Pharmacy 141.7; Estimated Glomerular Filt Rate > 60; Glucose Random 121 mg/dL (60-115); Lipase 13 U/L (8-78); Potassium 3.9 mmol/L (3.3-5.1); Sodium 142 mmol/L (135-145); Total Protein 7.1 g/dL (6.5-8.0)
[2024-07-06 20:43] LABS: Lactic Acid 2.5 mmol/L (0.5-2.0)
[2024-07-06 20:48] LABS: Troponin-I High Sensitivity < 2.7 ng/L (<3.5-17.0)
[2024-07-06] MEDS: cefuroxime axetiL 500 MG TABLET PO (21:43)
[2024-07-06 22:12] LABS: Reflex Lactate? Lactic Acid Added
[2024-07-06 22:41] VITALS: BP 122/78; PULSE 110; RESP 16; TEMP 36.9; O2SAT 99
[2024-07-06] MEDS: Ketorolac Tromethamine 60 MG/2 ML VIAL IM (22:47)
[2024-07-06 23:11] VITALS: BP 122/78; PULSE 110; RESP 16; TEMP 36.9; O2SAT 99
== END 2024-07-06 23:12 | disposition home or self-care (01) ==
PROVIDERS: Emergency Provider Emergency Medicine
DX: J18.9 Pneumonia, unspecified organism (principal); R41.82 Altered mental status, unspecified; F19.10 Other psychoactive substance abuse, uncomplicated; R53.83 Other fatigue; E11.9 Type 2 diabetes mellitus without complications; J45.909 Unspecified asthma, uncomplicated; Z79.899 Other long term (current) drug therapy; Z03.818 Encounter for observation for suspected exposure to other biological agents ruled out
CPT/HCPCS: 0241U; 36415; 70450; 71045; 80048; 80076; 80307; 81001; 83605; 83690; 84484; 85025; 87040; 93005; 99284; 99285; J1885

== ENCOUNTER 2024-07-11 03:28 | Emergency (ER) | payer OTHER, SELFPAY ==
--- NOTE | ~2024-07-11 | XR_ITS ---
EXAMINATION: XR CHEST CLINICAL INFORMATION: Cough. COMPARISON: Chest radiograph 07/06/2024 TECHNIQUE: Frontal view of the chest was obtained. FINDINGS: Normal appearance of the cardiomediastinal structures. No effusions or pneumothoraces. No focal pulmonary consolidation. Normal pattern of pulmonary vasculature. XR/XR chest 1V IMPRESSION: No acute cardiopulmonary abnormalities noted. Interval resolution of the previous noted left lower lobe atelectasis and/or consolidation visualized on the comparison chest radiograph of 07/06/2024. Electronically signed by: Donald Bangura MD 07/11/2024 05:18 AM EDT
[2024-07-11 03:40] VITALS: BP 142/90; BP 174/111; PULSE 111; PULSE 114; RESP 20; TEMP 37.1; O2SAT 98; O2SAT 99; BMI 44.0
--- NOTE | 2024-07-11 03:41 | ECG_ITS ---
Test Reason : UTI Blood Pressure : / mmHG Vent. Rate : 114 BPM Atrial Rate : 114 BPM P-R Int : 160 ms QRS Dur : 088 ms QT Int : 342 ms P-R-T Axes : 025 -29 141 degrees QTc Int : 471 ms Sinus tachycardia Left ventricular hypertrophy with repolarization abnormality ( R in aVL ) Possible Lateral infarct (cited on or before 24-FEB-2022) Abnormal ECG When compared with ECG of 06-JUL-2024 18:15, T wave inversion more evident in Lateral leads Referred By: Linda Blakely Electronically Signed By:SIRI ZULETA
--- NOTE | 2024-07-11 03:48 | ED_ITS ---
HPI - Weakness General Chief complaint: Urogenital-Female Stated complaint: weakmedss Source: patient, EMS and old records reviewed Mode of arrival: EMS Limitations: no limitations History of Present Illness ED Provider: THA ZAMORA Narrative: 49 yo female with PMH of MS, weakness, depression, substance abuse who was just seen here on 07/06 for weakness dx with LLL pneumonia and sent back to [facility] on ceftin she comes back today from facility with increased weakness, fatigue, dysuria and is chronically incontinent of urine so they cannot get a sample. She states she feels cold and has dysuria. She reports being compliant with her medications. She has prior proteus S to ceftriaxone in the past. No n/v/d. She is awake and alert on arrival to the ED. Complaint: generalized weakness Onset (ago): day(s) (few) Duration: constant Location: generalized Migration: none Severity: moderate Quality: aching Relieving factors: none Exacerbating factors: movement Context: recent illness Associated symptoms: dysuria Related Data Home Medications ?Medication ?Instructions ?Recorded ?Confirmed albuterol sulfate 90 mcg/actuation 2 puff inhalation Q6H PRN 02/10/22 06/23/22 aerosol inhaler (Ventolin HFA) Shortness Of Breath loratadine 10 mg tablet 1 tab PO DAILY 03/24/22 06/23/22 baclofen 10 mg tablet 10 mg PO BID 06/23/22 06/23/22 gabapentin 800 mg tablet 1 tab PO TID neuropathy 06/23/22 06/23/22 hydroxyzine HCl 50 mg tablet 50 mg PO TID 06/23/22 06/23/22 omeprazole 40 mg capsule,delayed 40 mg PO DAILY 06/23/22 06/23/22 release prazosin 2 mg capsule 2 mg PO BEDTIME 06/23/22 06/23/22 quetiapine 400 mg tablet 1 tab PO BEDTIME depressive 06/23/22 06/23/22 disorder quetiapine 50 mg tablet 50 mg PO BID PRN Mood 06/23/22 06/23/22 risperidone 1 mg tablet 1 mg 06/23/22 trazodone 100 mg tablet 150 mg PO BEDTIME PRN Sleep 06/23/22 06/23/22 Previous Rx's ?Medication ?Instructions ?Recorded amlodipine 5 mg tablet 5 mg PO DAILY 30 days #30 tabs 09/07/21 divalproex 500 mg tablet,delayed 500 mg PO BID 30 days #60 tabs 09/07/21 release benzonatate 100 mg capsule 100 mg PO TID PRN cough #14 caps 06/23/22 amoxicillin 500 mg capsule 500 mg PO BID #14 caps 05/20/24 cefuroxime axetil 500 mg tablet 500 mg PO BID 7 days #14 tabs 07/06/24 levofloxacin 750 mg tablet 750 mg PO DAILY #9 tabs 07/11/24 Allergies Allergy/AdvReac Type Severity Reaction Status Date / Time Iodinated Contrast Media Allergy Severe ANAPHYLAXIS Verified 07/11/24 03:43 [CONTRAST, IV] ibuprofen [From Motrin] Allergy Intermediate SWELLING Verified 07/11/24 03:43 morphine [MORPHINE] Allergy Intermediate RASH Verified 07/11/24 03:43 acetaminophen [From TYLENOL] Allergy Mild HIVES Verified 07/11/24 03:43 bee pollen [Bee Stings] Allergy Mild UNKNOWN Verified 07/11/24 03:43 coconut Allergy Mild HIVES/SWELL Verified 07/11/24 03:43 ING latex [Latex] Allergy Mild HIVES Verified 07/11/24 03:43 NSAIDS (Non-Steroidal Allergy Mild HIVES Verified 07/11/24 03:43 Anti-Inflamma [NSAIDS (NON-STEROIDAL ANTI-INFLAMMA] aspirin [ASA] Allergy Unknown HIVES Verified 07/11/24 03:43 tramadol [TRAMADOL] Allergy Unknown UNKNOWN Verified 07/11/24 03:43 turkey Allergy Unknown UNKNOWN Verified 07/11/24 03:43 lidocaine Allergy Rash Verified 07/11/24 03:43 Peppers, Green Allergy Shortness Verified 07/11/24 03:43 of Breath Peppers, Jalapeno Allergy Shortness Verified 07/11/24 03:43 of Breath Peppers, Red Allergy Shortness Verified 07/11/24 03:43 of Breath Peppers, Yellow Allergy Shortness Verified 07/11/24 03:43 of Breath From Vicodin Allergy Mild RASH Uncoded 07/11/24 03:43 Review of Systems 2 Review of Systems: Constitutional : No Fever, No Chills, pos Fatigue ENT/Mouth : No sore throat, No Rhinorrhea Eyes: No Eye Pain, No Swelling, No Redness Cardiovascular : No Chest Pain, No SOB, No Dyspnea on Exertion Respiratory : No Cough, No Sputum Gastrointestinal : No Nausea, No Vomiting, No Diarrhea, No abdominal Pain Genitourinary : pos Dysuria, pos Urinary Frequency, No Hematuria, Musculoskeletal : No joint pain, No Myalgias, No Joint Swelling Skin : No Skin Lesions, No rash Neuro : pos Weakness, No Numbness, No Dizziness, no Headache Psych : No Anxiety/Panic, No Depression All other systems reviewed and are negative PMFSH Past Medical History Attestation statement: The following information was validated with the patient. Source: old records reviewed Medical History Personality disorder in adult Alcohol abuse Cocaine abuse Multiple sclerosis MDD (major depressive disorder), recurrent episode, severe Post traumatic stress disorder (PTSD) Hypertension History of seizure Fall Multiple sclerosis exacerbation section wound complication Asthma GERD (gastroesophageal reflux disease) Multiple sclerosis Diabetes Surgical History History of left ankle joint replacement History of thoracic surgery Social History Social History Household Members: Spouse Housing: Other Housing Other:: Living in hotel Do you presently have visiting nurse or other home services: No Alcohol intake: never Comment: Patient using wheelchair Patient Tobacco Use Status: Current everyday Tobacco user Tobacco use type: Cigarette Cigarette Packs Per Day: 0.5 Cigarettes Per Day: 5 Years Smoked: 26 e-Cigarette/Vaping Use: Never Used Second Hand Smoke Exposure: Yes ( also a smoker) Substance Use Type: Crack/Cocaine Advance Directives: Yes Advance Directives on File: Yes Advance Directives Date on File: 08/25/20 Do you have a plan to hurt others: No Plan Patient : No service: No Sexual orientation: Did not discuss Physical Exam 2 Vital Signs: Vital Signs: Last Vital Signs Temp 98.7 F 07/11/24 03:40 Pulse 106 H 07/11/24 05:44 Resp 20 07/11/24 05:44 BP 137/103 H 07/11/24 05:44 Pulse Ox 98 07/11/24 03:40 O2 Del Method Room Air 07/11/24 03:40 BMI result Body Mass Index 44.0 Appearance: Alert. Oriented X3. No acute distress. Eyes: Pupils equal, round and reactive to light. ENT: Pharynx normal. Neck: Normal inspection. Neck supple. CVS: tachycardia heart rate and rhythm. Pulses normal. Respiratory: No respiratory distress. Breath sounds normal. Abdomen: Soft and nontender. Skin: Skin warm and dry. Normal skin color. Normal skin turgor. Extremities: No lower extremity edema. Neuro: Oriented X 3. No motor deficit. No sensory deficit. Course Course Course Narrative: infection suspected 447am cultures, lactic acid, levofloxacin ordered Medications Administered Generic Name Dose Route Start Last Admin Trade Name Freq PRN Reason Stop Dose Admin Levofloxacin 750 mg in 150 mls @ 100 mls/hr 07/11/24 04:46 07/11/24 05:16 Levaquin IV 07/11/24 06:15 100 mls/hr ONCE ONE Administration Discontinued Medications Generic Name Dose Route Start Last Admin Trade Name Freq PRN Reason Stop Dose Admin Acetaminophen 650 mg 07/11/24 04:42 07/11/24 05:15 Acetaminophen 325 Mg Tablet PO 07/11/24 04:43 650 mg ONCE ONE Administration Medical Decision Making Medical Decision Making [facility] Narrative: 49 yo female with PMH of MS, weakness, depression, substance abuse who was just seen here on 07/06 for weakness dx with LLL pneumonia now here with chills dysuria and not feeling well. She is on ceftin which should treat UTI. She will need basic labs, UA, and CXR. Differential Diagnosis Differential Diagnoses: The differential diagnosis associated with the presentation includes weakness, URI, viral syndrome, dehydration Admission/Observation Consideration of admission/observation: Escalation of care including admission/observation considered no fevers here, no vomiting, no WBC count, negative lactic acid would switch her to oral levofloxacin and stop ceftin/doxy CXR clear unlikely to be pneumonia but levofloxacin will cover CAP has mild tachycardia but review or records shows chronic tachycardia she is not alerted or lethargic here Lab Data [facility] Lab Attestation statement: I reviewed the patient's lab results. 07/11/24 04:13 07/11/24 04:13 Labs: Lab Results 07/11/24 07/11/24 07/11/24 Range/Units 04:13 04:31 05:09 WBC 7.4 (4.8-10.8) X10*3/uL RBC 4.19 L (4.20-5.50) X10*6/uL Hgb 10.2 L (12.0-16.0) g/dl Hct 32.6 L (37.0-47.0) % MCV 77.8 L (80.0-98.0) fL MCH 24.3 L (27.0-33.0) pg MCHC 31.3 (31.0-35.0) g/dl RDW 19.3 H (11.0-16.0) % Plt Count 263 (160-400) X10*3/uL MPV 10.4 (9.4-12.3) fL Immature Gran % (Auto) 1.6 H (0.0-0.4) % Neut % (Auto) 70.1 (45-73) % Lymph % (Auto) 19.0 L (20-40) % [place] % (Auto) 7.0 (2-11) % Eos % (Auto) 2.0 (0-4) % Baso % (Auto) 0.3 (0-2) % Lymph # (Auto) 1.4 (1.2-4.9) X10*3/uL [place] # (Auto) 0.5 (0.1-1.2) X10*3/uL Eos # (Auto) 0.2 (0.0-0.4) X10*3/uL Baso # (Auto) 0.0 (0.0-0.2) X10*3/uL Abs Immat Gran (auto) 0.12 H (0.00-0.03) X10*3/uL Absolute Neuts (auto) 5.2 (2.0-8.3) x10*3/uL Absolute Nucleated RBC 0.000 (0.0-0.012) X10*3/uL Nucleated RBC % (auto) 0.0 (0.0-0.2) /100WBC Sodium 144 (135-145) mmol/L Potassium 4.2 (3.3-5.1) mmol/L Chloride 106 (96-108) mmol/L Carbon Dioxide 26 (22-29) mmol/L Anion Gap 16 (12-20) BUN 8 L (9-16) mg/dL Creatinine 0.67 (0.5-1.4) mg/dL Estim Creat Clear Calc 155.1 Estimated GFR > 60 Random Glucose 128 H (60-115) mg/dL Lactic Acid 1.5 (0.5-2.0) mmol/L Calcium 9.9 D (8.4-10.2) mg/dL Magnesium 1.9 (1.6-2.6) mg/dL Total Bilirubin 0.2 (0.0-1.0) mg/dL Direct Bilirubin < 0.2 (0.0-0.5) mg/dL AST 7 (5-31) U/L ALT 8 (0-31) U/L Alkaline Phosphatase 65 (39-117) U/L Total Protein 7.4 (6.5-8.0) g/dL Albumin 3.9 (3.5-5.0) g/dL Lipase 32 (8-78) U/L Urine Color Yellow Urine Appearance Turbid Urine pH 6.0 (5.0-9.0) Ur Specific [place] 1.015 (1.005-1.025) Urine Protein 30 (1+) H (Neg-Trace) mg/dL Urine Glucose (UA) Negative (Negative) mg/dL Urine Ketones Trace (Negative) mg/dL Urine Blood Small (1+) H (Negative) Urine Nitrite Positive H (Negative) Ur Leukocyte Esterase Large (3+) H (Negative) Urine RBC 0-2 (0-2) /HPF Urine WBC >50 H (0-5) /HPF Urine WBC Clumps Present Ur Squamous Epith Cells 3-5 (0-2) /HPF Urine Bacteria 4+ (None Seen) Hyaline Casts 0-2 (0-2) /LPF Urine Opiates Screen Not Detected (Not Detect) Ur Buprenorphine Scrn Not Detected (Not Detect) ng/mL Ur Oxycodone Screen Positive H (Not Detect) ng/mL Urine Methadone Screen Not Detected (Not Detect) ng/mL Urine Fentanyl Screen Not Detected (Not Detect) Ur Barbiturates Screen Not Detected (Not Detect) Valproic Acid 108.7 H (50.0-100.0) mcg/mL Ur Phencyclidine Scrn Not Detected (Not Detect) Ur Amphetamines Screen Not Detected (Not Detect) U Benzodiazepines Scrn Not Detected (Not Detect) Urine Cocaine Screen Not Detected (Not Detect) U Marijuana (THC) Screen Not Detected (Not Detect) Influenza Type A (PCR) NEGATIVE (Negative) Influenza Type B (PCR) NEGATIVE (Negative) RSV RNA Qual (PCR) NEGATIVE (Negative) SARS-CoV-2 RNA (RT-PCR) NEGATIVE (Negative) Independent Interpretation I performed an independent interpretation of an: EKG and Plain X-Ray Interpretation: Rate: 114 Rhythm: sinus tachycardia [place]: left Normal P waves. Normal PRUDENCE. Normal QRS complex. ST T wave : inverted t waves I and aVL, flat t waves anterior no KRISTYN qTC: 471 prior studies: no change from priors The study has been interpreted contemporaneously by me. . Radiology Impression Discussion of test interpretation with radiology: I have reviewed the radiologist's reading. Independent Historian Clinical information obtained from an independent historian. History obtained from or confirmed by: EMS External Record Review External record reviewed: Inpatient record and Outpatient record Discharge Plan Discharge Clinical Impression: Pyelonephritis Patient Disposition: Home, Self-Care Instructions: Kidney Infection (ED) Additional Instructions: normal white blood cell count negative lactic acid hold depakote for at least 24 hours level this AM is 108 need to recheck level in 24 hours chest xray normal today - STOP CEFUROXIME AND DOXY has kidney infection start levofloxacin - given IV dose in the ED return for any worsening symptoms or concerns levofloxacin should be 750mg daily for additional 9 days Prescriptions: New levofloxacin 750 mg tablet 750 mg PO DAILY Qty: 9 0RF No Action amlodipine 5 mg Tablet 5 mg PO DAILY 30 Days Qty: 30 0RF Protocol: Hold for SBP< HOLD for SBP < : 90 divalproex 500 mg Tablet,Delayed Release (Dr/Ec) 500 mg PO BID 30 Days Qty: 60 0RF albuterol sulfate [Ventolin HFA] 90 mcg/actuation HFA aerosol inhaler 2 puff inhalation Q6H PRN (Reason: Shortness Of Breath) loratadine 10 mg tablet 1 tab PO DAILY trazodone 100 mg tablet 150 mg PO BEDTIME PRN (Reason: Sleep) hydroxyzine HCl 50 mg Tablet 50 mg PO TID omeprazole 40 mg Capsule,Delayed Release(Dr/Ec) 40 mg PO DAILY baclofen 10 mg Tablet 10 mg PO BID risperidone 1 mg Tablet 1 mg prazosin 2 mg Capsule 2 mg PO BEDTIME quetiapine 50 mg Tablet 50 mg PO BID PRN (Reason: Mood) quetiapine 400 mg tablet 1 tab PO BEDTIME gabapentin 800 mg tablet 1 tab PO TID benzonatate 100 mg capsule 100 mg PO TID PRN (Reason: cough) Qty: 14 0RF amoxicillin 500 mg capsule 500 mg PO BID Qty: 14 0RF cefuroxime axetil 500 mg tablet 500 mg PO BID 7 Days Qty: 14 0RF Print Language: [place]
[2024-07-11 04:18] LABS: Basophils Percent Auto 0.3 % (0-2); Eosinophils Absolute Auto 0.2 X10*3/uL (0.0-0.4); Hematocrit 32.6 % (37.0-47.0); Hemoglobin 10.2 g/dl (12.0-16.0); Imm Gran Abs Auto 0.12 X10*3/uL (0.00-0.03); Imm Gran Pct Auto 1.6 % (0.0-0.4); Lymphocytes Absolute Auto 1.4 X10*3/uL (1.2-4.9); MANUAL DIFF FLAG NO; Mean Corpuscular HGB Conc 31.3 g/dl (31.0-35.0); Mean Corpuscular Hemoglobin 24.3 pg (27.0-33.0); Mean Corpuscular Volume 77.8 fL (80.0-98.0); Mean Platelet Volume 10.4 fL (9.4-12.3); Monocytes Absolute Auto 0.5 X10*3/uL (0.1-1.2); Neutrophils Absolute Auto 5.2 x10*3/uL (2.0-8.3); Neutrophils Percent Auto 70.1 % (45-73); Platelet Count 263 X10*3/uL (160-400); Red Blood Count 4.19 X10*6/uL (4.20-5.50); Red Cell Distribution Width 19.3 % (11.0-16.0); White Blood Count 7.4 X10*3/uL (4.8-10.8)
[2024-07-11 04:31] LABS: Alanine Aminotransferase 8 U/L (0-31); Albumin Level 3.9 g/dL (3.5-5.0); Alkaline Phosphatase 65 U/L (39-117); Anion Gap 16 (12-20); Aspartate Amino Transferase 7 U/L (5-31); Bilirubin Direct < 0.2 mg/dL (0.0-0.5); Bilirubin Total 0.2 mg/dL (0.0-1.0); Blood Urea Nitrogen 8 mg/dL (9-16); Calcium 9.9 mg/dL (8.4-10.2); Carbon Dioxide 26 mmol/L (22-29); Chloride 106 mmol/L (96-108); Creatinine Clr Calc Pharmacy 155.1; Estimated Glomerular Filt Rate > 60; Glucose Random 128 mg/dL (60-115); Lipase 32 U/L (8-78); Magnesium 1.9 mg/dL (1.6-2.6); Potassium 4.2 mmol/L (3.3-5.1); Sodium 144 mmol/L (135-145); Total Protein 7.4 g/dL (6.5-8.0)
[2024-07-11 04:34] LABS: Valproate 108.7 mcg/mL (50.0-100.0)
[2024-07-11 04:38] LABS: Appearance Urine Turbid; Color Urine Yellow; Glucose Urine UA Negative (Negative); Leukocyte Esterase Urine Large (3+) (Negative); Nitrite Urine Positive (Negative); Specific Gravity - Urine 1.015 (1.005-1.025); UMIC TRIGGER UACC YES; Urine Blood Small (1+) (Negative); Urine Ketones Trace mg/dL (Negative); Urine Protein 30 (1+) mg/dL (Neg-Trace)
[2024-07-11 04:44] LABS: Bacteria Urine 4+ (None Seen); Hyaline Casts Urine 0-2 /LPF (0-2); RBC Urine 0-2 /HPF (0-2); UACC Culture Trigger YES; WBC Clumps Urine Present; WBC Urine >50 /HPF (0-5)
[2024-07-11 04:55] LABS: Influenza A PCR NEGATIVE (Negative); Influenza B PCR NEGATIVE (Negative); Resp Syncy Virus RNA Qual PCR NEGATIVE (Negative); SARS COV2 PCR INHOUSE NEGATIVE (Negative)
[2024-07-11 05:01] LABS: Amphetamine Screen Urine Not Detected (Not Detect); Barbiturates, Urine Not Detected (Not Detect); Benzodiazepines Screen Urine Not Detected (Not Detect); Buprenorphine Scr Not Detected (Not Detect); Cannabinoid Screen Urine Not Detected (Not Detect); Cocaine Screen Urine Not Detected (Not Detect); Fentanyl, urine Not Detected (Not Detect); Methadone Screen, Urine Not Detected (Not Detect); Opiate Screen Urine Not Detected (Not Detect); Oxycodone Screen Urine Positive (Not Detect); Phencyclidine Screen Urine Not Detected (Not Detect)
[2024-07-11] MEDS: Acetaminophen 325 MG TABLET 650 MG PO (05:15)
[2024-07-11] MEDS: levoFLOXacin/D5W 750 MG/150 ML PIGGYBACK 100 MG IV (05:16)
--- NOTE | 2024-07-11 05:23 | PC.NURSE ---
Patient is alert and oriented x3, denies SI/HI. She complaints of chronic pain in her lower back ranging from 01/16-07/18. Labs obtained and sent to lab, US guided 20 G IV line established in R forearm. Urine specimen collected for UA, C+S via straight cath and sent to [place]. Patient medicated per DEC. Patient currently resting on stretcher bed, offers no complaints, 1:1 sitter at bedside.
[2024-07-11 05:28] LABS: Lactic Acid 1.5 mmol/L (0.5-2.0)
[2024-07-11 05:44] VITALS: BP 137/103; PULSE 106; RESP 20
[2024-07-11 06:18] VITALS: BP 131/93; PULSE 104; RESP 20; TEMP 37.3; O2SAT 96
--- NOTE | 2024-07-11 06:26 | PC.NURSE ---
Nurse to nurse report given to TIFFANIE Oquendo at [facility].
--- NOTE | 2024-07-11 08:00 | PC.NURSE ---
patient provided with crackers and juice per request
[2024-07-11 08:14] VITALS: BP 131/90; PULSE 103; RESP 16; O2SAT 97
[2024-07-11 08:33] VITALS: BP 128/82; PULSE 100; RESP 16; TEMP 37.1; O2SAT 97
== END 2024-07-11 08:35 ==
PROVIDERS: Emergency Provider Emergency Medicine; PCP Internal Medicine
DX: N10 Acute pyelonephritis (principal); R30.0 Dysuria; N39.0 Urinary tract infection, site not specified; R00.0 Tachycardia, unspecified; F17.210 Nicotine dependence, cigarettes, uncomplicated; Z51.81 Encounter for therapeutic drug level monitoring; Z79.899 Other long term (current) drug therapy; Z03.818 Encounter for observation for suspected exposure to other biological agents ruled out
CPT/HCPCS: 0241U; 36415; 51701; 71045; 80048; 80076; 80164; 80307; 81001; 83605; 83690; 83735; 85025; 87040; 87086; 87088; 87186; 93005; 96365; 96366; 99285; J1956